=== PATIENT | female | born 1965 | race Caucasian/White ===

== ENCOUNTER → 2019-06-08 11:35 | Day surgery (SDC) | payer OTHER, SELFPAY ==
[2019-06-08 11:56] VITALS: BMI 41.1
[2019-06-08 12:02] VITALS: BP 140/95; PULSE 102; RESP 18; TEMP 37; O2SAT 96
--- NOTE | 2019-06-08 12:15 | ECG_ITS ---
Measurements Intervals [place] Rate: 102 P: VT: 0 QRS: 43 QRSD: 113 T: 17 QT: 365 QTc: 476 POSSIBLY ATRIAL FLUTTER WITH RVR LOW QRS VOLTAGE [QRS DEFLECTION < 0.5/1.0 mV IN LIMB/CHEST LEADS] ANTEROSEPTAL MYOCARDIAL INFARCTION [40+ ms Q WAVE IN V1-V4], PROBABLY RECENT ACUTE [place] WARNING: DATA QUALITY MAY AFFECT INTERPRETATION Compared to ECG 04/24/2018 10:02:58 Low QRS voltage now present Myocardial infarct finding now present Sinus rhythm no longer present Electronically Signed On 06-08-2019 17:48:29 CDT by Nan Coe M.D. [id number]
--- NOTE | 2019-06-08 12:26 | ANES.PREANE2 ---
Pre-Anesthetic Assessment Pre-Anesthetic Assessment: Height/Weight: Height 1.7 m Weight 119.295 kg Temp Pulse Resp BP Pulse Ox 98.6 F 102 H 18 140/95 96 06/08/19 12:02 06/08/19 12:02 06/08/19 12:02 06/08/19 12:02 06/08/19 12:02 Preop Diagnosis: cardioversion Proposed Procedure: Operation Date: 06/08/19 13:00 Proposed Procedures p Cardioversion(Not Applicable) - Theodora Valladares MD Familial anesthetic complications: none Was Beta Moi taken within 24 hours: N/A Social: Social History: Tobacco and No alcohol Packs per day: 1 Pack years: 20 Exam: Pre-Anes Outpt Exam: alert, oriented x 3, clear to auscultation bilaterally and regular rate & rhythm Airway: Submandibular: WNL Cervical ROM: WNL MP: 1 Dentition: False History/ROS: No significant history except as noted Pulmonary: Pulmonary: Asthma, Sleep apnea and SOB CV/HEM: CV/HEM: Arrythmia and HTN Comments: SVT : : None reported Hepatic: Hepatic: None reported GI: GI: GERD Metabolic: Metabolic: DM, Hyperlipidemia and Morbid obesity Musc/skel: Musc/skel: OA/DJD Neuropsych: Neuropsych: None reported Anesthetic Plan: ASA status: 3 Anesthesia: MAC Risk of > 500 ml blood loss (7ml/kg in children): No PFSH Anesthesia PFSH: Social History Smoking and tobacco status: current every day smoker Second hand smoke exposure: Yes Smoking risk assessment/counseling performed?: Yes Alcohol intake: never Desire information about alcohol rehabilitation?: No Counseling given: No Desire information about substance/drug rehabilitation?: No Counseling given: No Caregiver/support person: No Lives independently: Yes Current occupational status: employed History of recent travel: No Data Anesthesia Cardiac Studies: No Data to Display
[2019-06-08] MEDS: sodium chloride 0.9% 1,000 ML 100 ML IV (12:40)
--- NOTE | 2019-06-08 12:57 | PM.OP ---
Operative Report Date of procedure: June 08, 2019 Pre-op Diagnosis: cardioversion Post-op diagnosis: same Post-op Findings: Atrial flutter was converted to sinus rhythm Procedure Done: Electrical cardioversion Electrical cardioversion report Preprocedure diagnoses: Atrial fibrillation/hypertension. Brief history: This is a 54-year-old white female with a history of intermittent atrial flutter/fibrillation, presented with a persistent atrial fibrillation associated with chest pains, dizziness and presyncope. She was started on propafenone. Apparently she continued to be in atrial flutter/fibrillation. For this reason, an electrical cardioversion was recommended. Location of the procedure: CPRU Electrode application: Anteroposterior Electrical energy applied: 120 J of biphasic current Number of shocks: Single Final rhythm: Normal sinus rhythm with a rate of 74 bpm Final blood pressure: 128/72 Complications: None Recommendation(s): Continue the propafenone 300 mg p.o. every 8 hours Implants: None Specimens removed/disposition: None Surgeon: Theodora Valladares Anesthesia: MAC Estimated blood loss (mL): 0 Tourniquet time (min): 0 IV fluids (mL): 0 Condition: stable Disposition: observation
[2019-06-08 13:00] VITALS: BP 109/64; PULSE 76; RESP 18; TEMP 37; O2SAT 99
--- NOTE | 2019-06-08 13:00 | ANE.PACU2 ---
 Inpatient post-anesthesia follow up: Airway intact: Yes Vital signs: Temperature 98.6 F Pulse Rate 102 Respiratory Rate 18 Blood Pressure 140/95 Pulse Oximetry 96 Oxygen Delivery Me thod Oxygen Flow Rate Fraction of Inspir ed Oxygen Hydration adequate: Yes Nausea and vomiting: No Pain level: 1 Mental status: Baseline
[2019-06-08 13:15] VITALS: BP 110/77; PULSE 74; RESP 18; O2SAT 99
--- NOTE | 2019-06-08 13:20 | ECG_ITS ---
Measurements Intervals [place] Rate: 74 P: 35 IN: 224 QRS: 24 QRSD: 117 T: 48 QT: 407 QTc: 453 SINUS RHYTHM WITH FIRST DEGREE AV BLOCK LOW QRS VOLTAGE IN PRECORDIAL LEADS POSSIBLE ANTERIOR MYOCARDIAL INFARCTION, OF INDETERMINATE AGE ST ELEVATION, CONSIDER INFERIOR INJURY ACUTE [place] Compared to ECG 04/24/2018 10:02:58 First degree AV block now present Low QRS voltage now present Myocardial infarct finding now present ST (T wave) deviation now present Electronically Signed On 06-08-2019 17:46:59 CDT by Nan Coe M.D. [id number]
[2019-06-08 13:30] VITALS: BP 120/77; PULSE 76; RESP 18; O2SAT 99
--- NOTE | 2019-07-17 13:19 | W.PM.OPSUD ---
Surgery/Procedure H&P Update DATE OF PROCEDURE: 06/08/2019 DATE H&P PERFORMED: 05/25/19 H&P UPDATE INFORMATION: I have reviewed H&P completed within last 30 days, I have examined patient prior to procedure and No changes to prior documentation PREOP DIAGNOSIS: cardioversion PLANNED PROCEDURE: Operation Date: 06/08/19 13:00 Proposed Procedures p Cardioversion(Not Applicable) - Theodora Valladares MD PATIENT REASSESSED PRIOR TO SEDATION, WITH NO CHANGE NOTED: Yes PHYSICAL EXAM: oriented x 3, clear to auscultation bilaterally and regular rate & rhythm AIRWAY EVAL/ANESTHESIA PLAN: ASA II, Local Anesthesia, Risks, benefits & alternatives of sedation and/or procedure discussed and Patient agrees to continue as planned
== END | disposition home or self-care (01) ==
PROVIDERS: Family Provider Nurse Practitioner Family; PCP Nurse Practitioner; Visit Provider Internal Medicine Cardiovascular Disease
PROC: 5A2204Z Restoration of Cardiac Rhythm, Single (ICD-10-PCS; CPT 92960; principal; 2019-06-08 13:00)
DX: I48.91 Unspecified atrial fibrillation (principal); I10 Essential (primary) hypertension; J45.909 Unspecified asthma, uncomplicated; G47.30 Sleep apnea, unspecified; K21.9 Gastro-esophageal reflux disease without esophagitis; E11.9 Type 2 diabetes mellitus without complications; E78.5 Hyperlipidemia, unspecified; E66.01 Morbid (severe) obesity due to excess calories; Z68.41 Body mass index [BMI] 40.0-44.9, adult; M19.90 Unspecified osteoarthritis, unspecified site; F17.210 Nicotine dependence, cigarettes, uncomplicated
CPT/HCPCS: 92960; 12345; 93005; J2704; J7030

== ENCOUNTER → 2019-08-26 10:07 | Outpatient (BNVA) | payer OTHER, SELFPAY | PROVIDERS: Family Provider Nurse Practitioner Family; PCP Nurse Practitioner; Visit Provider Nurse Practitioner Family | DX: E78.5 Hyperlipidemia, unspecified (principal); E11.65 Type 2 diabetes mellitus with hyperglycemia; I10 Essential (primary) hypertension; J44.9 Chronic obstructive pulmonary disease, unspecified; I47.1 Supraventricular tachycardia; F17.200 Nicotine dependence, unspecified, uncomplicated | CPT/HCPCS: 80053; 80061; 83036; 84443; 85025 ==

== ENCOUNTER → 2019-09-10 15:13 | Outpatient (BNVA) | payer OTHER, SELFPAY | PROVIDERS: Family Provider Nurse Practitioner Family; PCP Nurse Practitioner; Visit Provider Nurse Practitioner | DX: M79.672 Pain in left foot (principal) | CPT/HCPCS: 73630 ==

== ENCOUNTER 2019-10-12 10:57 | Outpatient (CLI) | payer OTHER, SELFPAY ==
--- NOTE | 2019-10-12 13:15 | CT_ITS ---
WS: [id number] CT HEAD TECHNIQUE: Noncontrast CT of the head obtained from the skullbase to the vertex. CLINICAL INFORMATION: head injury, headache COMPARISON: None. DLP: 992.[address] scans at [facility] use at least one of these dose optimization techniques: automat ed exposure control; mA and/or kV adjustment per patient size (includes targeted exams where dose is matched to clinical indication); or iterative reconstruction. FINDINGS: No evidence of intracranial hemorrhage or mass effect. Ventricular system and basal cisterns are saez nt.No extra-axial fluid collections. No evidence of mass or mass effect. Normal jaime-white differenti ation. Paranasal sinuses and mastoid air cells are well aerated. . Soft tissue edema left parietal scalp. CT/CT head wo con* [id number] IMPRESSION: 1. No evidence of intracranial hemorrhage or mass effect. 2. No acute intracranial findings. 3. Soft tissue edema left parietal scalp. No visualized fractures.
== END 2019-10-12 10:58 | disposition home or self-care (01) ==
LOC: RADWPI 11:00
PROVIDERS: Family Provider Nurse Practitioner Family; PCP Nurse Practitioner; Visit Provider Nurse Practitioner Family
DX: S09.90XA Unspecified injury of head, initial encounter (principal); R51 Headache; R60.9 Edema, unspecified; X58.XXXA Exposure to other specified factors, initial encounter
CPT/HCPCS: 70450

== ENCOUNTER → 2019-10-19 14:02 | Outpatient (BNVA) | payer OTHER, SELFPAY | PROVIDERS: Family Provider Nurse Practitioner Family; PCP Nurse Practitioner; Visit Provider Nurse Practitioner Family | DX: M54.2 Cervicalgia (principal); M25.522 Pain in left elbow; S59.902A Unspecified injury of left elbow, initial encounter; X58.XXXA Exposure to other specified factors, initial encounter | CPT/HCPCS: 72040; 73080 ==

== ENCOUNTER → 2019-10-28 09:14 | Outpatient (BNVA) | payer OTHER, SELFPAY | PROVIDERS: Family Provider Nurse Practitioner Family; PCP Nurse Practitioner; Visit Provider Nurse Practitioner Family | DX: F07.81 Postconcussional syndrome (principal); M25.522 Pain in left elbow; S59.902A Unspecified injury of left elbow, initial encounter | CPT/HCPCS: 73080 ==

== ENCOUNTER 2019-11-23 10:08 | Observation (INO) | payer OTHER, SELFPAY ==
[2019-11-23] VITALS (13 sets, daily range): BP systolic 103–162; BP diastolic 62–92; PULSE 60–91; RESP 14–20; TEMP 36.1–36.8; O2SAT 93–98; BMI 41.1
--- NOTE | 2019-11-23 10:36 | ECG_ITS ---
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 Measurements Intervals [place] Rate: 69 P: 0 NM: 157 QRS: 30 QRSD: 115 T: 49 QT: 418 QTc: 448 Interpretive Statements SINUS RHYTHM LOW QRS VOLTAGE IN EXTREMITY LEADS [QRS DEFLECTION < 0.5 mV IN LIMB LEADS] MODERATE INTRAVENTRICULAR CONDUCTION DELAY [105+ ms QRS DURATION, 80+ ms Q/S IN V1/V2, NO Q AND 60+ ms R IN I/aVL/V5/V6] Compared to ECG 06/08/2019 12:59:31 Intraventricular conduction delay now present First degree AV block no longer present Myocardial infarct finding no longer present ST (T wave) deviation no longer present Electronically Signed On 11-23-2019 20:47:38 CDT by Nan Coe M.D. [id number] f
--- NOTE | 2019-11-23 10:36 | XRR_ITS ---
PROCEDURE INFORMATION: Exam: XR Chest, 1 View Exam date and time: 11/23/2019 10:47 AM Age: 54 years old Clinical indication: Chest pain; Type not specified TECHNIQUE: Imaging protocol: XR of the chest Views: 1 view. COMPARISON: CR Chest 1 [place] [id number] 10/11/2016 10:11 AM FINDINGS: Lungs: Interstitial prominence and chronic granulomatous disease. Pleural space: No pleural effusion. Heart/Mediastinum: Cardiac silhouette upper limits of normal in size. Bones/joints: Unremarkable. XR/XR chest 1V portable [id number] IMPRESSION: Interstitial prominence and chronic granulomatous disease.
--- NOTE | 2019-11-23 10:45 | W.ED.CHESTPA ---
HPI - Chest Pain General: Chief Complaint: Chest Pain Stated Complaint: chest pain Time Seen by Provider: 11/23/19 10:17 History of Present Illness: HPI narrative: 54-year-old female presents emergency room with complaint of chest pain. Chest pain initially began this morning around 730 while she was getting ready for work. It persisted she went to a local clinic they evaluated her there and called EMS to bring her in. She was given 2 sublingual nitro at the clinic as well as aspirin and then given 2 more sublingual nitro by EMS and then finally an inch of Nitropaste. At the end of all of the nitro treatments she did report relief of her chest pain. A year ago patient had an episode of A. fib with RVR and was cardioverted after which she had a stress test which was reported to her as normal no further intervention was done. She does have significant risk factors including being in 2 pack-a-day smoker for greater than 20 years and being diabetic. (Reviewing old records find that the sestamibi stress test was done in October 31, 2016 was read as normal) MD complaint: chest heaviness Pertinent past history: other (Diabetes mellitus heavy smoking A. fib) Onset (ago): hour(s) Timing of current episode: constant Prior episodes: No Onset: during exertion (Mild exertion) Pain location: substernal and left chest Pain radiation: none Severity: severe Quality: tightness and heaviness Relieving factors: nitroglycerin Exacerbating factors: exertion Associated symptoms: Deny abdominal pain, diaphoresis, dyspnea, fever(s), leg edema, nausea, palpitations, sense of impending doom, syncope or vomiting Treatment prior to arrival: aspirin and nitroglycerin Review of Systems Const: Denies: fever(s) or diaphoresis ENMT: Denies: throat pain, ear or mastoid pain, nasal discharge or nasal congestion Card: Denies: palpitations or syncope Resp: Denies: dyspnea GI: Denies: abdominal pain, nausea or vomiting : Denies: flank pain, difficulty voiding, dysuria, urinary frequency or urinary urgency Skin/Breast: Denies: rash or pruritus [facility] ED PFSH: Medical History Asthma Atrial fibrillation Benign hypertension Controlled type 2 diabetes mellitus with hyperglycemia, without long-term current use of insulin COPD (chronic obstructive pulmonary disease) COPD exacerbation Current smoker Dyslipidemia GERD (gastroesophageal reflux disease) High risk medication use SVT (supraventricular tachycardia) Surgical History History of appendectomy History of hysterectomy History of mastectomy Family History Father CAD (coronary artery disease) CHF (congestive heart failure) Hyperlipidemia Hypertension Lung disease Stroke Other Diabetes Denies family history of Clotting disorder Dementia Psychiatric illness Chronic kidney disease (CKD) Suicide Anesthesia complication Bleeding disorder Family history of premature coronary artery disease Cancer Social History Smoking and tobacco status: current every day smoker cigarettes Packs smoked per day: 2 Second hand smoke exposure: Yes Smoking risk assessment/counseling performed?: Yes Alcohol intake: never Desire information about alcohol rehabilitation?: No Counseling given: No Desire information about substance/drug rehabilitation?: No Counseling given: No Caregiver/support person: No Lives independently: Yes Current occupational status: employed History of recent travel: No Physical Exam Const: COMMON NORMALS: average body habitus, patient oriented x3 and alert GENERAL APPEARANCE: cooperative, comfortable, well kempt and well developed NUTRITIONAL APPEARANCE: obese ORIENTATION/CONSCIOUSNESS: Yes awake, Yes oriented to person and Yes oriented to place HENMT: COMMON NORMALS: normocephalic, atraumatic and EAC's normal HEAD & SCALP: normocephalic and atraumatic EXTERNAL AUDITORY CANAL: EAC's normal Eye: COMMON NORMALS: Equal, round and reactive pupils present, EOMs intact bilaterally, conjunctivae normal and no scleral icterus CONJUNCTIVA: Yes conjunctivae normal PUPIL: Yes Equal, round and reactive pupils present Neck/C-Spine: COMMON NORMALS: full ROM, no lymphadenopathy, supple, no meningeal signs and Thyroid normal THYROID: Thyroid normal and asymmetrical Lymph: LYMPHATIC: no lymphadenopathy noted Resp: COMMON NORMALS: normal respiratory effort, No retractions, No use of accessory muscles and clear to auscultation bilaterally AUSCULTATION: clear to auscultation bilaterally Cardio: COMMON NORMALS: regular rate and regular rhythm RATE: regular rate RHYTHM: regular rhythm HEART SOUNDS: no murmurs GI: COMMON NORMALS: Normal to inspection, nondistended, normoactive bowel sounds present, Soft to palpation and No hepatosplenomegaly present PALPATION: Yes Soft to palpation and Yes No hepatosplenomegaly present : COMMON NORMALS: Yes no CVA tenderness BLADDER/KIDNEY EXAM: Yes no CVA tenderness Back/Pelvis: COMMON NORMALS: no CVA tenderness LUMBAR SPINE/LOWER BACK: Yes normal to inspection Extremity: COMMON NORMALS: no clubbing, cyanosis or edema, no calf tenderness and no pedal edema Neuro: COMMON NORMALS: patient oriented x3 SENSORIUM/ORIENTATION: Yes alert, Yes oriented to person and Yes oriented to place MENINGEAL SIGNS: Yes no meningeal signs Psych: APPEARANCE: Yes well kempt Skin: COMMON NORMALS: no rashes or lesions noted and turgor normal GENERAL SKIN EXAM: no rashes or lesions noted and turgor normal Course Vital Signs: Vital signs: Vital Signs Temperature 98.6 F 11/24/19 16:01 Pulse Rate 65 11/24/19 16:01 Respiratory Rate 15 11/24/19 16:01 Blood Pressure 132/67 11/24/19 16:01 Pulse Oximetry 95 11/24/19 16:01 MDM - Chest Pain MDM Narrative: Medical decision making narrative: Patient placed in observation with topical nitro and Lovenox to further evaluate for heart disease discussed Dr. Taylor. Lab Data: Labs: Lab Results 11/23/19 11/23/19 11/23/19 Range/Units 10:54 10:54 10:54 WBC 9.2 (4.0-10.0) 10^3/ uL RBC 5.08 (4.1-5.3) 10^6/u L Hgb 15.3 (11.5-15.3) g/dL Hct 46.8 (37.0-47.0) % MCV 92.1 (81-99) fL MCH 30.1 (28.0-34.0) pg MCHC 32.7 (30.0-36.0) g/dL RDW 12.2 (12.1-15.1) % Plt Count 257 (130-400) 10^3/c mm MPV 11.1 H (7.4-10.4) fL Neut % (Auto) 60.2 % Lymph % (Auto) 30.1 % [place] % (Auto) 6.0 % Eos % (Auto) 2.6 % Baso % (Auto) 0.7 % Neut # (Auto) 5.53 (1.8-7.7) 10^3/u L Lymph # (Auto) 2.8 (0.8-4.8) 10^3/u L [place] # (Auto) 0.6 (0.2-0.9) 10^3/u L Eos # (Auto) 0.2 (0.0-0.8) 10^3/u L Baso # (Auto) 0.1 (0.0-0.1) 10^3/u L Nucleated RBC % (a uto) 0 % Nucleated RBCs # 0.0 /100WBC PT (12.1-14.9) SECO NDS INR (0.8-1.2) D-Dimer (0-0.59) ug/mIFE U Sodium 137 (136-145) mmol/L Potassium 4.6 (3.5-5.1) mmol/L Chloride 101 (98-107) mmol/L Carbon Dioxide 28 (22-29) mmol/L Anion Gap 12.6 (5-19) BUN 9 (6-20) mg/dL Creatinine 0.6 (0.5-0.9) mg/dL GFR Calculation 103.8 (90-130) mL/min Glucose 288 H (65-115) mg/dL Calculated Osmolal ity 291 (285-295) mOsm/k g Calcium 9.0 (8.5-10.5) mg/dL Total Bilirubin 0.4 (0.15-1.2) mg/dL AST 15 (0-32) U/L ALT 19 (0-33) U/L Alkaline Phosphata se 92 (35-105) IU/L Troponin T Baselin e 6 (0-10) ng/L Troponin T 120 Min [place] (0-10) ng/L Delta Troponin T (0-10) ABS# Total Protein 6.7 (6.6-8.7) g/dL Albumin 3.8 (3.5-5.2) g/dL Globulin 2.9 (1.3-4.6) g/dL TSH (0.27-4.20) uIU/ mL 11/23/19 11/23/19 11/23/19 Range/Units 10:54 10:54 13:00 WBC (4.0-10.0) 10^3/ uL RBC (4.1-5.3) 10^6/u L Hgb (11.5-15.3) g/dL Hct (37.0-47.0) % MCV (81-99) fL MCH (28.0-34.0) pg MCHC (30.0-36.0) g/dL RDW (12.1-15.1) % Plt Count (130-400) 10^3/c mm MPV (7.4-10.4) fL Neut % (Auto) % Lymph % (Auto) % [place] % (Auto) % Eos % (Auto) % Baso % (Auto) % Neut # (Auto) (1.8-7.7) 10^3/u L Lymph # (Auto) (0.8-4.8) 10^3/u L [place] # (Auto) (0.2-0.9) 10^3/u L Eos # (Auto) (0.0-0.8) 10^3/u L Baso # (Auto) (0.0-0.1) 10^3/u L Nucleated RBC % (a uto) % Nucleated RBCs # /100WBC PT 15.10 H (12.1-14.9) SECO NDS INR 1.15 (0.8-1.2) D-Dimer 0.46 (0-0.59) ug/mIFE U Sodium (136-145) mmol/L Potassium (3.5-5.1) mmol/L Chloride (98-107) mmol/L Carbon Dioxide (22-29) mmol/L Anion Gap (5-19) BUN (6-20) mg/dL Creatinine (0.5-0.9) mg/dL GFR Calculation (90-130) mL/min Glucose (65-115) mg/dL Calculated Osmolal ity (285-295) mOsm/k g Calcium (8.5-10.5) mg/dL Total Bilirubin (0.15-1.2) mg/dL AST (0-32) U/L ALT (0-33) U/L Alkaline Phosphata se (35-105) IU/L Troponin T Baselin e (0-10) ng/L Troponin T 120 Min [place] 6.00 (0-10) ng/L Delta Troponin T 0 (0-10) ABS# Total Protein (6.6-8.7) g/dL Albumin (3.5-5.2) g/dL Globulin (1.3-4.6) g/dL TSH (0.27-4.20) uIU/ mL 11/23/19 Range/Units 13:00 WBC (4.0-10.0) 10^3/ uL RBC (4.1-5.3) 10^6/u L Hgb (11.5-15.3) g/dL Hct (37.0-47.0) % MCV (81-99) fL MCH (28.0-34.0) pg MCHC (30.0-36.0) g/dL RDW (12.1-15.1) % Plt Count (130-400) 10^3/c mm MPV (7.4-10.4) fL Neut % (Auto) % Lymph % (Auto) % [place] % (Auto) % Eos % (Auto) % Baso % (Auto) % Neut # (Auto) (1.8-7.7) 10^3/u L Lymph # (Auto) (0.8-4.8) 10^3/u L [place] # (Auto) (0.2-0.9) 10^3/u L Eos # (Auto) (0.0-0.8) 10^3/u L Baso # (Auto) (0.0-0.1) 10^3/u L Nucleated RBC % (a uto) % Nucleated RBCs # /100WBC PT (12.1-14.9) SECO NDS INR (0.8-1.2) D-Dimer (0-0.59) ug/mIFE U Sodium (136-145) mmol/L Potassium (3.5-5.1) mmol/L Chloride (98-107) mmol/L Carbon Dioxide (22-29) mmol/L Anion Gap (5-19) BUN (6-20) mg/dL Creatinine (0.5-0.9) mg/dL GFR Calculation (90-130) mL/min Glucose (65-115) mg/dL Calculated Osmolal ity (285-295) mOsm/k g Calcium (8.5-10.5) mg/dL Total Bilirubin (0.15-1.2) mg/dL AST (0-32) U/L ALT (0-33) U/L Alkaline Phosphata se (35-105) IU/L Troponin T Baselin e (0-10) ng/L Troponin T 120 Min [place] (0-10) ng/L Delta Troponin T (0-10) ABS# Total Protein (6.6-8.7) g/dL Albumin (3.5-5.2) g/dL Globulin (1.3-4.6) g/dL TSH 1.33 (0.27-4.20) uIU/ mL Discharge Plan Discharge Patient Disposition: Placed in Observation Admit Provider: Flavia Taylor Clinical Impression: Unstable angina pectoris, Controlled type 2 diabetes mellitus with hyperglycemia, without long-term current use of insulin, Benign hypertension, COPD (chronic obstructive pulmonary disease), Chest pain, Tobacco abuse, Atrial fibrillation Condition: Stable Referrals: Theodora Valladares MD [Physician] - 1 month (You have an follow-up appointment with Dr. Valladares on , with check-in at 3:30p.m. If you have any questions or need to reschedule. Please call ) Ángel Vance FNP-C [Primary Care Provider] - 4-7 days (You have an follow-up appointment with Ángel RAMOS on Nov.29 at 9:20a.m. If you have any questions or need to reschedule. Please call Recommend outpatient Pulmonary Function testing be set up by PCP) Discharge Diet: Diabetic Discharge Activity: Increase activity as tolerated Patient Instructions: Nitroglycerin, Rapid Release (By mouth), Pantoprazole (By mouth), Atrial Fibrillation (DC), Supraventricular Tachycardia (DC), Chest Pain Stoplight Additional Instructions: Follow-up with your primary care provider in 4 to 7 days Follow-up with Dr. Valladares in 4 to 6 weeks Start on PPI, Protonix 40 mg once daily Call your physician or present to the ED for any acute illness or concern Continue to monitor your blood sugar daily and present a blood glucose log to your primary care provider for further titration of insulin as indicated Strongly encouraged tobacco cessation, when you are ready to discuss stopping smoking please call your primary care provider Recommend outpatient pulmonary function testing to be set up by primary care provider Interventions: ED Discharge Assessment Last Done: 11/23/19 15:52 ED Charges Last Done: 11/23/19 15:52 Forms: Work/School Release Discharge Date/Time: 11/23/19 16:08 Coding Level of Care Code ED Coating Mixer for Chg Fwd Exam Comprehensive
--- NOTE | 2019-11-23 10:59 | ECG_ITS ---
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 Measurements Intervals [place] Rate: 66 P: 64 IA: 183 QRS: 10 QRSD: 125 T: 38 QT: 400 QTc: 422 Interpretive Statements SINUS RHYTHM WITH SINUS ARRHYTHMIA POSSIBLE ANTERIOR MYOCARDIAL INFARCTION , OF INDETERMINATE AGE Compared to ECG 06/08/2019 12:59:31 First degree AV block no longer present ST (T wave) deviation no longer present Myocardial infarct finding still present Electronically Signed On 11-23-2019 20:44:45 CDT by Nan Coe M.D. [id number] f
[2019-11-23 11:00] LABS: Basophils # 0.1 10^3/uL (0.0-0.1); Basophils % 0.7 %; Eosinophils # 0.2 10^3/uL (0.0-0.8); Eosinophils % 2.6 %; Hematocrit 46.8 % (37.0-47.0); Hemoglobin 15.3 g/dL (11.5-15.3); Lymphocytes # 2.8 10^3/uL (0.8-4.8); Lymphocytes % 30.1 %; Mean Corpuscular HGB Conc 32.7 g/dL (30.0-36.0); Mean Corpuscular Hemoglobin 30.1 pg (28.0-34.0); Mean Corpuscular Volume 92.1 fL (81-99); Mean Platelet Volume 11.1 fL (7.4-10.4); Monocytes # 0.6 10^3/uL (0.2-0.9); Neutrophils # 5.53 10^3/uL (1.8-7.7); Neutrophils % 60.2 %; Nucleated Red Blood Cells % 0 %; Platelet Count 257 10^3/cmm (130-400); Red Blood Count 5.08 10^6/uL (4.1-5.3); Red Cell Distribution Width 12.2 % (12.1-15.1); White Blood Count 9.2 10^3/uL (4.0-10.0)
[2019-11-23] MEDS: morphine 4 mg/mL SDV 1 mL IVP (11:04)
--- NOTE | 2019-11-23 11:12 | PC.NURSE ---
Morphine given per written order for current left sided chest pain. Rates pain 4/10.
[2019-11-23 11:17] LABS: Alanine Aminotransferase 19 U/L (0-33); Albumin Level 3.8 g/dL (3.5-5.2); Alkaline Phosphatase 92 IU/L (35-105); Anion Gap 12.6 (5-19); Aspartate Amino Transferase 15 U/L (0-32); Blood Urea Nitrogen 9 mg/dL (6-20); Carbon Dioxide 28 mmol/L (22-29); Chloride 101 mmol/L (98-107); Globulin 2.9 g/dL (1.3-4.6); Glomerular Filtration Rate 103.8 mL/min (90-130); Glucose 288 mg/dL (65-115); Osmolality Calculated 291 mOsm/kg (285-295); Potassium 4.6 mmol/L (3.5-5.1); Sodium 137 mmol/L (136-145); Total Bilirubin 0.4 mg/dL (0.15-1.2); Total Protein 6.7 g/dL (6.6-8.7)
[2019-11-23 11:18] LABS: Troponin(5th) Baseline 6 ng/L (0-10)
[2019-11-23 12:11] LABS: D Dimer 0.46 ug/mIFEU (0-0.59)
--- NOTE | 2019-11-23 12:36 | ECG_ITS ---
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 Measurements Intervals [place] Rate: 55 P: 60 ME: 184 QRS: 35 QRSD: 112 T: 66 QT: 439 QTc: 421 Interpretive Statements SINUS BRADYCARDIA MODERATE INTRAVENTRICULAR CONDUCTION DELAY [110+ ms QRS DURATION] Compared to ECG 11/23/2019 11:09:49 Intraventricular conduction delay now present Sinus rhythm no longer present Sinus arrhythmia no longer present Myocardial infarct finding no longer present Electronically Signed On 11-23-2019 21:07:31 CDT by Nan Coe M.D. [id number]
[2019-11-23 14:31] LABS: Troponin 5 2HR Delta 0 ABS# (0-10)
--- NOTE | 2019-11-23 14:53 | PC.NURSE ---
Offered food and drink to pt and family member
--- NOTE | 2019-11-23 15:48 | PM.HP ---
Providers/Chief Complaint Admitting Physician: Flavia Taylor DO Primary Care Provider: RICHARD Flores Chief Complaint: chest pain History of Present Illness Soni Head is a 54 year old female with a past medical history of hypertension, tobacco abuse, diabetes and hyperlipidemia that presented to the emergency department today for chest pain. Patient stated that she began having chest pain located in the center of her chest this morning when she was getting ready for work. She stated that she came into work but continued to have chest pain in the center of her chest that began to get worse therefore came in to the ER for further evaluation and treatment. She reports that she was given 2 nitroglycerin with some improvement in pain then given an additional 2 nitroglycerin and ultimately placed on Nitropaste. Nitroglycerin and morphine have helped with her chest pain. She denies any radiation to the pain, no inspiratory symptoms, no respiratory symptoms including cough or shortness of breath. She reports chronic smoker's cough but denies any acute changes, no hemoptysis. Patient denies any recent medication changes. She reports that she is followed by cardiology due to history of atrial fibrillation and SVT. Patient denies any recent fevers or chills, no recent antibiotics. She denies any exposure to any one under investigation are positive for COVID-19. She reports no nausea, no diaphoretic symptoms, no lightheadedness or dizziness. Patient has not had any exertional symptoms other than what started today. She reports that her last cardiac stress test was in 2017. Followed by Dr. Valladares regularly. Has never had a cardiac catheterization. Review of Systems Const: Denies: fever(s) or chills Eyes: Denies: change in vision ENMT: Denies: nasal congestion Card: Reports: chest pain; Denies: palpitations or edema Resp: Denies: dyspnea, productive cough or hemoptysis GI: Denies: abdominal pain, nausea, vomiting, diarrhea, constipation, hematochezia or melena : Denies: dysuria or hematuria Musc: Denies: extremity pain or muscle cramps Skin/Breast: Denies: rash or new lesions Neuro: Denies: headache(s) or dizziness Psych: Denies: anxiety or depression Endo: Denies: polyuria or hot flashes Tio/Lymph: Denies: easy bruising or easy bleeding Medications/Allergies Home Medications Medication Instructions Recorded Confirmed Last Taken Type chlorpheniramine maleate 4 mg 8 mg PO Q8H tab 05/21/19 11/23/19 11/23/19 History tablet ascorbate calcium-bioflavonoid 1,000 tab PO DAILY 06/14/19 11/23/19 11/22/19 History 1,000 mg-200 mg tablet valerian root 445 mg capsule 1,335 mg PO DAILY cap 06/14/19 11/23/19 11/22/19 History propafenone 300 mg tablet 300 mg PO TID #270 tab 07/15/19 11/23/19 11/23/19 Rx albuterol sulfate 90 mcg/actuation 2 puff INHALATION Q4H PRN 30 Days 08/26/19 11/23/19 Unknown Rx aerosol inhaler #6.7 gm atorvastatin 20 mg tablet 20 mg PO DAILY #30 tab 08/26/19 11/23/19 11/22/19 Rx diltiazem HCl 90 mg tablet 90 mg PO Q8H 30 Days #90 tab 08/26/19 11/23/19 11/23/19 Rx glipizide 10 mg tablet 10 mg PO BID 30 Days #60 tab 08/26/19 11/23/19 11/22/19 Rx lisinopril 20 mg tablet 20 mg PO DAILY 30 Days #30 tab 08/26/19 11/23/19 11/22/19 Rx pen needle, diabetic 33 gauge x #100 each 09/10/19 11/23/19 Unknown Rx 5/32 acetaminophen [Tylenol Arthritis 1,300 mg PO Q8H PRN 11/23/19 11/23/19 11/23/19 History Pain] dulaglutide [Trulicity] 1.5 mg SUBCUT Q7D 11/23/19 11/23/19 Unknown History insulin degludec [Tresiba 10 unit SUBCUT BEDTIME 11/23/19 11/23/19 11/22/19 History FlexTouch U-100] rivaroxaban [Xarelto] 20 mg PO BEDTIME 11/23/19 11/23/19 11/22/19 History Allergies Allergy/AdvReac Type Severity Reaction Status Date / Time azithromycin [From Zithromax] Allergy Unknown Unknown Verified 11/23/19 11:24 sulfamethoxazole Allergy Unknown Unknown Verified 11/23/19 11:24 [From Bactrim] trimethoprim [From Bactrim] Allergy Unknown Unknown Verified 11/23/19 11:24 PFSH Acute PFSH: Medical History Asthma Atrial fibrillation Benign hypertension Controlled type 2 diabetes mellitus with hyperglycemia, without long-term current use of insulin COPD (chronic obstructive pulmonary disease) COPD exacerbation Current smoker Dyslipidemia GERD (gastroesophageal reflux disease) High risk medication use SVT (supraventricular tachycardia) Surgical History History of appendectomy History of hysterectomy History of mastectomy Family History Father CAD (coronary artery disease) CHF (congestive heart failure) Hyperlipidemia Hypertension Lung disease Stroke Other Diabetes Denies family history of Clotting disorder Dementia Psychiatric illness Chronic kidney disease (CKD) Suicide Anesthesia complication Bleeding disorder Family history of premature coronary artery disease Cancer Social History (Updated 11/23/19 @ 15:52 by Flavia Taylor DO) Smoking and tobacco status: current every day smoker cigarettes Packs smoked per day: 2 Second hand smoke exposure: Yes Smoking risk assessment/counseling performed?: Yes Alcohol intake: never Desire information about alcohol rehabilitation?: No Counseling given: No Desire information about substance/drug rehabilitation?: No Counseling given: No Caregiver/support person: No Lives independently: Yes Current occupational status: employed History of recent travel: No Vitals/I&O/Wt Last Vital Signs Temp 97.0 F L 11/23/19 10:24 Pulse 75 11/23/19 15:00 Resp 18 11/23/19 15:00 BP 144/70 11/23/19 15:00 Pulse Ox 95 11/23/19 15:00 Weight last 48 hrs Weight 119.295 kg Physical Exam Const: COMMON NORMALS: patient oriented x3 and alert GENERAL APPEARANCE: cooperative ORIENTATION/CONSCIOUSNESS: Yes awake, Yes oriented to person, Yes oriented to place and Yes oriented to time HENMT: COMMON NORMALS: normocephalic and atraumatic HEAD & SCALP: normocephalic and atraumatic Eye: COMMON NORMALS: Equal, round and reactive pupils present PUPIL: Yes Equal, round and reactive pupils present Neck/C-Spine: COMMON NORMALS: supple GENERAL: Yes normal visual inspection Resp: COMMON NORMALS: normal respiratory effort and clear to auscultation bilaterally EFFORT & INSPECTION: Yes able to speak in complete sentences AUSCULTATION: clear to auscultation bilaterally, no rhonchi and no wheezes OTHER: Prolonged expiratory phase, no appreciable wheezing or rhonchi Cardio: COMMON NORMALS: regular rate, regular rhythm and No murmurs present (Cardio) RATE: regular rate RHYTHM: regular rhythm GI: COMMON NORMALS: Soft to palpation and non-tender INSPECTION: No abdominal distension AUSCULTATION: Yes normoactive bowel sounds PALPATION: Yes Soft to palpation : BLADDER/KIDNEY EXAM: Yes no CVA tenderness Back/Pelvis: COMMON NORMALS: no CVA tenderness Extremity: COMMON NORMALS: no clubbing, cyanosis or edema and no calf tenderness Neuro: COMMON NORMALS: patient oriented x3, CN's II-XII intact bilaterally, moves all extremities and no focal motor deficits SENSORIUM/ORIENTATION: Yes alert, Yes oriented to person, Yes oriented to place and Yes oriented to time SPEECH: speech normal Psych: COMMON NORMALS: mental status grossly normal and cooperative Skin: COMMON NORMALS: no rashes or lesions noted GENERAL SKIN EXAM: no rashes or lesions noted Data : 11/23/19 10:54 11/23/19 10:54 CXR: I personally reviewed and interpreted this imaging study as follows: Radiologist's impression: IMPRESSION: Interstitial prominence and chronic granulomatous disease. A&P Assessment and plan (1) Chest pain: Place in observation with telemetry Serial EKG and troponin No significant delta troponin at this time however patient has had an inconclusive stress test back in 2017 therefore discussed with cardiology for consultation. Dr. Tan consulted, appreciate recommendations and assistance in patient's care. Patient did have chest pain with activity that was improved with nitroglycerin has risk factors including tobacco abuse, family history of heart disease, hypertension, hyperlipidemia and diabetes. Plan for potential cardiac cath tomorrow Discussed with cardiology and will give loading dose of Plavix and Lovenox at this time Continue on aspirin and statin Status: Acute (2) COPD (chronic obstructive pulmonary disease): Without acute exacerbation Oxygen per protocol, currently on room air Status: Chronic Qualifiers: COPD type: chronic bronchitis Chronic bronchitis type: unspecified Qualified Code(s): J42 - Unspecified chronic bronchitis (3) Dyslipidemia: Continue atorvastatin Status: Chronic (4) SVT (supraventricular tachycardia): History of SVT, followed closely by Dr. Valladares. Continue on propafenone 300 mg 3 times a day Status: Acute (5) Benign hypertension: Blood pressure controlled at this time, continue on home regimen including lisinopril, Cardizem Status: Acute (6) Current smoker: Currently smoking 2 packs/day, strongly encourage cessation, nicotine patch ordered as needed Status: Chronic (7) Controlled type 2 diabetes mellitus with hyperglycemia, without long-term current use of insulin: Diabetes mellitus type 2, insulin-dependent Patient is on glipizide which is currently on hold in the inpatient setting as do not wish for her to have any hypoglycemic event. On Tresiba 10 units daily Last dose of Trulicity on Friday Placed on sliding scale insulin as needed Status: Chronic (8) Atrial fibrillation: Currently in sinus rhythm Patient is on Cardizem 90 mg every 8 hours Xarelto 20 mg at home Status: Acute Qualifiers: Atrial fibrillation type: paroxysmal Qualified Code(s): I48.0 - Paroxysmal atrial fibrillation Additional A&P Information DVT prophylaxis: On Lovenox as above Diet: Cardiac, carbohydrate consistent CODE STATUS: Full code Attestations Medical Necessity Statement*: Observation due to chest pain with hypertension, diabetes, family history of heart disease, tobacco use. Expected stay less than 2 midnights Coding Level of Care Code Acute Procedure Tech for [facility] Fwd Diagnoses Chest pain R07.9 COPD (chronic obstructive pulmonary disease) J42 COPD type: chronic bronchitis Chronic bronchitis type: unspecified Dyslipidemia E78.5 SVT (supraventricular tachycardia) I47.1 Benign hypertension I10 Current smoker F17.200 Controlled type 2 diabetes mellitus with hyperglycemia, without long-term current use of insulin E11.65 Atrial fibrillation I48.0 Atrial fibrillation type: paroxysmal
[2019-11-23 16:30] LABS: INR 1.15 (0.8-1.2)
[2019-11-23 16:32] LABS: Thyroid Stimulating Hormone 1.33 uIU/mL (0.27-4.20)
--- NOTE | 2019-11-23 16:36 | ECG_ITS ---
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 Measurements Intervals [place] Rate: 57 P: 80 SD: 181 QRS: 88 QRSD: 111 T: 85 QT: 432 QTc: 421 Interpretive Statements SINUS BRADYCARDIA LOW QRS VOLTAGE IN EXTREMITY LEADS [QRS DEFLECTION < 0.5 mV IN LIMB LEADS] MODERATE INTRAVENTRICULAR CONDUCTION DELAY [110+ ms QRS DURATION] Compared to ECG 11/23/2019 13:32:37 Low QRS voltage now present Electronically Signed On 11-23-2019 21:06:43 CDT by Nan Coe M.D. [id number]
[2019-11-23 17:11] LABS: Troponin 5 6HR Delta 0 ng/L (0-12)
[2019-11-23 17:24] LABS: Glucose Point of Care 251 mg/dL (70-110)
[2019-11-23] MEDS: propafenone 150 mg Tablet 300 MG PO ×2 (17:43→20:53)
[2019-11-23] MEDS: dilTIAZem 60 mg Tablet PO (17:44)
[2019-11-23] MEDS: dilTIAZem 30 mg Tablet PO (17:44)
[2019-11-23] MEDS: clopidogrel 300 mg Tablet PO (17:45)
[2019-11-23] MEDS: enoxaparin 120 mg/0.8 mL Syringe SUBCUT (17:49)
--- NOTE | 2019-11-23 18:40 | PM.CONSULT ---
Providers/Reason For Consult Consulting Physican/Specialty*: Cardiology Reason for Consult*: Chest pain Attending Physician: Flavia Taylor DO Primary Care Provider: RICHARD Flores History of Present Illness History of Present Illness Soni Head is a 54 year old female past medical history significant for hypertension obesity continuous tobacco abuse atrial fibrillation supraventricular tachycardia on anticoagulation presented with chest pain going on since this morning off and on basis. According to the patient as she was leaving for work she had sharp retrosternal pain which was mild to moderate she did not pay much attention towards a midday it became more constant and higher in intensity therefore decided to call EMS. Enroute she was giving 2 nitroglycerin which relieved her chest pain in the ER was placed which took the total edge of the pain off. Currently she is chest pain-free twelve-lead EKG not suggestive of acute ischemia at the same time cardiac markers both delta and baseline troponin are within normal limits. Patient has been admitted to rule out for ACS Review of Systems Const: Denies: fever(s), chills or diaphoresis Eyes: Denies: change in vision or photophobia ENMT: Denies: throat pain, ear or mastoid pain, nasal discharge or nasal congestion Card: Reports: chest pain; Denies: palpitations, edema or syncope Resp: Denies: dyspnea, productive cough or hemoptysis GI: Denies: abdominal pain, nausea, vomiting, diarrhea, constipation, hematochezia or melena : Denies: flank pain, difficulty voiding, dysuria, urinary frequency, urinary urgency or hematuria Musc: Denies: extremity pain, joint warmth or muscle cramps Skin/Breast: Denies: rash, pruritus or new lesions Neuro: Denies: headache(s) or dizziness Psych: Denies: anxiety or depression Endo: Denies: polyuria or hot flashes Tio/Lymph: Denies: easy bruising or easy bleeding All/Imm: Denies: acute wheezing Meds/Allergies Home Medications and Allergies Home Medications Medication Instructions Recorded Confirmed Last Taken Type chlorpheniramine maleate 4 mg 8 mg PO Q8H tab 05/21/19 11/23/19 11/23/19 History tablet ascorbate calcium-bioflavonoid 1,000 tab PO DAILY 06/14/19 11/23/19 11/22/19 History 1,000 mg-200 mg tablet valerian root 445 mg capsule 1,335 mg PO DAILY cap 06/14/19 11/23/19 11/22/19 History propafenone 300 mg tablet 300 mg PO TID #270 tab 07/15/19 11/23/19 11/23/19 Rx albuterol sulfate 90 mcg/actuation 2 puff INHALATION Q4H PRN 30 Days 08/26/19 11/23/19 Unknown Rx aerosol inhaler #6.7 gm atorvastatin 20 mg tablet 20 mg PO DAILY #30 tab 08/26/19 11/23/19 11/22/19 Rx diltiazem HCl 90 mg tablet 90 mg PO Q8H 30 Days #90 tab 08/26/19 11/23/19 11/23/19 Rx glipizide 10 mg tablet 10 mg PO BID 30 Days #60 tab 08/26/19 11/23/19 11/22/19 Rx lisinopril 20 mg tablet 20 mg PO DAILY 30 Days #30 tab 08/26/19 11/23/19 11/22/19 Rx pen needle, diabetic 33 gauge x #100 each 09/10/19 11/23/19 Unknown Rx 5/32 acetaminophen [Tylenol Arthritis 1,300 mg PO Q8H PRN 11/23/19 11/23/19 11/23/19 History Pain] dulaglutide [Trulicity] 1.5 mg SUBCUT Q7D 11/23/19 11/23/19 Unknown History insulin degludec [Tresiba 10 unit SUBCUT BEDTIME 11/23/19 11/23/19 11/22/19 History FlexTouch U-100] rivaroxaban [Xarelto] 20 mg PO BEDTIME 11/23/19 11/23/19 11/22/19 History Allergies Allergy/AdvReac Type Severity Reaction Status Date / Time azithromycin [From Zithromax] Allergy Unknown Unknown Verified 11/23/19 11:24 sulfamethoxazole Allergy Unknown Unknown Verified 11/23/19 11:24 [From Bactrim] trimethoprim [From Bactrim] Allergy Unknown Unknown Verified 11/23/19 11:24 Current Medications Current Medications Generic Name Dose Route Start Last Admin Trade Name Freq PRN Reason Stop Dose Admin Diltiazem HCl 60 mg 11/23/19 17:00 11/23/19 17:44 Cardizem PO 60 mg Q8H KELSEA Administration Diltiazem HCl 30 mg 11/23/19 17:00 11/23/19 17:44 Cardizem PO 30 mg Q8H KELSEA Administration Enoxaparin Sodium 120 mg 11/23/19 17:45 11/23/19 17:49 Lovenox 1 mg/kg (120 mg) 120 mg SUBCUT Administration Q12H KELSEA Insulin Aspart 0 unit 11/23/19 18:00 11/23/19 17:49 Novolog SUBCUT 8 unit TIDWM KELSEA Administration Protocol Propafenone HCl 300 mg 11/23/19 17:00 11/23/19 17:43 Rythmol PO 300 mg TID KELSEA Administration Rivaroxaban 20 mg 11/23/19 21:00 11/23/19 17:17 Xarelto PO Not Given BEDTIME KELSEA PFSH Acute PFSH: Medical History Asthma Atrial fibrillation Benign hypertension Controlled type 2 diabetes mellitus with hyperglycemia, without long-term current use of insulin COPD (chronic obstructive pulmonary disease) COPD exacerbation Current smoker Dyslipidemia GERD (gastroesophageal reflux disease) High risk medication use SVT (supraventricular tachycardia) Surgical History History of appendectomy History of hysterectomy History of mastectomy Family History Father CAD (coronary artery disease) CHF (congestive heart failure) Hyperlipidemia Hypertension Lung disease Stroke Other Diabetes Denies family history of Clotting disorder Dementia Psychiatric illness Chronic kidney disease (CKD) Suicide Anesthesia complication Bleeding disorder Family history of premature coronary artery disease Cancer Social History Smoking and tobacco status: current every day smoker cigarettes Packs smoked per day: 2 Second hand smoke exposure: Yes Smoking risk assessment/counseling performed?: Yes Alcohol intake: never Desire information about alcohol rehabilitation?: No Counseling given: No Desire information about substance/drug rehabilitation?: No Counseling given: No Caregiver/support person: No Lives independently: Yes Current occupational status: employed History of recent travel: No Dietary Habits: Current diet type/program: regular Caffeine: No Exercise: What type of physical activity do you participate in?: none Safety: Seatbelt use: always Drive intoxicated or ride with intoxicated driver education road instructor?: never Home Safety: Water heater temperature set < 120 degrees: Yes Working smoke detector in home: No Fire extinguisher in home: No Carbon monoxide detector in home: No Personal Safety: Do you feel safe at home: Yes Vitals/I&O/Wt Last Vital Signs Temp 98.3 F 11/23/19 15:52 Pulse 80 11/23/19 16:50 Resp 20 H 11/23/19 16:50 BP 162/92 11/23/19 16:50 Pulse Ox 97 11/23/19 16:50 11/23/19 11/23/19 11/23/19 06:59 14:59 22:59 Intake Total 222 / 222 Balance 222 / 222 Weight last 48 hrs Weight 263 lb Physical Exam Narrative: EXAM NARRATIVE: GENERAL: Patient is alert, awake and oriented x3. NECK: No jugular vein distension. HEENT: No cyanosis. No icterus. No pallor. HEART: Regular S1 and S2. No murmur, rub or gallop. LUNGS: Clear to auscultate bilaterally. ABDOMEN: Soft, nontender and nondistended. Positive bowel sounds. No guarding, rebound or tenderness. CENTRAL NERVOUS SYSTEM: Grossly nonfocal. EXTREMITIES: Lower extremities without edema bilaterally. A&P Assessment and plan (1) Chest pain: Patient chest pain relieved with nitroglycerin is suspicious for angina however cannot rule out esophagitis or musculoskeletal. Despite of multiple episode of chest pain nearly all day cardiac markers are within normal limits. There is no significant EKG changes. Patient last stress test was in 2017 since she is not having any exertional symptoms and because of the fact this is only one time she had chest pain in a while I would therefore proceed with stress test in the morning. Further plan will be devised after reviewing stress test data. Status: Acute Qualifiers: Chest pain type: precordial pain Qualified Code(s): R07.2 - Precordial pain (2) Atrial fibrillation: Currently in sinus rhythm on anticoagulation continue medicine. Status: Acute Qualifiers: Atrial fibrillation type: paroxysmal Qualified Code(s): I48.0 - Paroxysmal atrial fibrillation (3) Current smoker: Advised quitting smoking. Patient did not give any effective plan Status: Chronic (4) Benign hypertension: Currently stable. Continue current regimen Status: Acute (5) Controlled type 2 diabetes mellitus with hyperglycemia, without long-term current use of insulin: As per medicine. 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
[2019-11-23 20:31] LABS: Glucose Point of Care 242 mg/dL (70-110)
[2019-11-24] VITALS (8 sets, daily range): BP systolic 132–176; BP diastolic 64–102; PULSE 65–92; RESP 14–21; TEMP 36.4–37; O2SAT 94–98
[2019-11-24] MEDS: dilTIAZem 60 mg Tablet PO ×2 (00:04→09:36)
[2019-11-24] MEDS: dilTIAZem 30 mg Tablet PO ×2 (00:04→09:36)
[2019-11-24 04:07] LABS: Basophils # 0.1 10^3/uL (0.0-0.1); Basophils % 0.7 %; Eosinophils # 0.3 10^3/uL (0.0-0.8); Hematocrit 45.1 % (37.0-47.0); Hemoglobin 14.8 g/dL (11.5-15.3); Lymphocytes # 3.6 10^3/uL (0.8-4.8); Lymphocytes % 37.4 %; Mean Corpuscular HGB Conc 32.8 g/dL (30.0-36.0); Mean Corpuscular Hemoglobin 30.7 pg (28.0-34.0); Mean Corpuscular Volume 93.6 fL (81-99); Mean Platelet Volume 12.2 fL (7.4-10.4); Monocytes # 0.7 10^3/uL (0.2-0.9); Neutrophils # 4.97 10^3/uL (1.8-7.7); Neutrophils % 51.7 %; Nucleated Red Blood Cells % 0 %; Platelet Count 230 10^3/cmm (130-400); Red Blood Count 4.82 10^6/uL (4.1-5.3); Red Cell Distribution Width 12.3 % (12.1-15.1); White Blood Count 9.6 10^3/uL (4.0-10.0)
[2019-11-24 04:38] LABS: Blood Urea Nitrogen 12 mg/dL (6-20); Calcium 8.5 mg/dL (8.5-10.5); Carbon Dioxide 23 mmol/L (22-29); Chloride 101 mmol/L (98-107); Glomerular Filtration Rate 128.1 mL/min (90-130); Glucose 235 mg/dL (65-115); Osmolality Calculated 290 mOsm/kg (285-295); Sodium 138 mmol/L (136-145)
[2019-11-24 04:44] LABS: Anion Gap 18.4 (5-19); Potassium 4.4 mmol/L (3.5-5.1)
[2019-11-24] MEDS: enoxaparin 120 mg/0.8 mL Syringe SUBCUT (04:55)
[2019-11-24 06:15] LABS: Glucose Point of Care 217 mg/dL (70-110)
--- NOTE | 2019-11-24 08:00 | ECG_ITS ---
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 Interpretive Statements NAME OF STUDY: LEXISCAN SESTAMIBI STRESS TEST INDICATION: Chest Pain, NOTE: Please note that this is the electrocardiogram portion of the Lexiscan/Sestamibi stress test. The perfusion scan will be documented separately. DATA: Baseline heart rate was 66 beats per minute. Baseline blood pressure was 151/75 millimeters of mercury. Target heart rate was 165. Maximum heart rate achieved was 91. which was 55% of the predicted target heart rate. Maximum blood pressure was 202/101 millimeters of mercury. The reason for ending the test was completion of the protocol. The patient did not experience any symptoms. ELECTROCARDIOGRAM: BASELINE: Sinus rhythm. Normal axis. Old anterior wall myocardial infarction. EXERCISE: After Lexiscan injection, no ST-T changes suggestive of ischemic noted. No arrhythmia noted. CONCLUSION: Please note due to baseline abnormality of the EKG specificity and sensitivity of the EKG portion of LexiScan MIBI stress test will be low 1. EKG not suggestive of ischemia 2. Lexiscan injection unremarkable. 3. Perfusion scan will be documented separately. Electronically Signed On 12-03-2019 16:46:58 CDT by Lamin Tan M.D. [id number]
[2019-11-24] MEDS: regadenoson 0.4 Mg/5 ml Syringe IVP (08:25)
[2019-11-24] MEDS: atorvastatin 40 mg Tablet 20 MG PO (09:36)
[2019-11-24] MEDS: lisinopril 20 mg Tablet PO (09:36)
[2019-11-24] MEDS: nicotine 21 mg Patch 1 PATCH TRANSDERMA (09:36)
--- NOTE | 2019-11-24 09:39 | PC.NURSE ---
patient back to room form stress test patient alert oriented and in stable condition
[2019-11-24] MEDS: propafenone 150 mg Tablet 300 MG PO ×2 (09:45→15:08)
[2019-11-24] MEDS: acetaminophen 325 mg Tablet 650 MG PO (09:48)
--- NOTE | 2019-11-24 11:23 | PC.NURSE ---
Dr. Taylor at bedside for assessment and discussion of POC smoking cessation discussed patient verbalizes that she is not ready at this time
[2019-11-24 11:24] LABS: Glucose Point of Care 346 mg/dL (70-110)
--- NOTE | 2019-11-24 12:58 | PC.RESP ---
SMOKING CESSATION AND PULMONARY REHAB INFORMATION SENT TO PATIENT.
--- NOTE | 2019-11-24 15:10 | PM.PN ---
Subjective Subjective: Interval history: Denies any more chest pain ruled out for acute coronary syndrome. Stress test turned out to be negative. Medications: Reviewed: Yes Vitals/I&O/Wt Last Vital Signs Temp 98.6 F 11/24/19 14:53 Pulse 65 11/24/19 14:53 Resp 15 11/24/19 14:53 BP 132/67 11/24/19 14:53 Pulse Ox 95 11/24/19 14:53 11/24/19 11/24/19 11/24/19 06:59 14:59 22:59 Intake Total 580 / 1042 720 / 720 Balance 580 / 1042 720 / 720 Weight last 48 hrs Weight 268 lb 4 oz Weight 263 lb Physical Exam Narrative: EXAM NARRATIVE: GENERAL: Patient is alert, awake and oriented x3. NECK: No jugular vein distension. HEENT: No cyanosis. No icterus. No pallor. HEART: Regular S1 and S2. No murmur, rub or gallop. LUNGS: Clear to auscultate bilaterally. ABDOMEN: Soft, nontender and nondistended. Positive bowel sounds. No guarding, rebound or tenderness. CENTRAL NERVOUS SYSTEM: Grossly nonfocal. EXTREMITIES: Lower extremities without edema bilaterally. Data : 11/24/19 03:05 11/24/19 03:05 A&P Assessment and plan (1) Chest pain: Most likely atypical. Stress test in negative. Continue current regimen please follow-up with cardiology Dr. Valladares as an outpatient. Status: Acute Qualifiers: Chest pain type: precordial pain Qualified Code(s): R07.2 - Precordial pain (2) Atrial fibrillation: Currently in sinus rhythm on anticoagulation continue medicine. Status: Acute Qualifiers: Atrial fibrillation type: paroxysmal Qualified Code(s): I48.0 - Paroxysmal atrial fibrillation (3) Current smoker: Advised quitting smoking. Patient did not give any effective plan Status: Chronic (4) Benign hypertension: Currently stable. Continue current regimen Status: Acute (5) Controlled type 2 diabetes mellitus with hyperglycemia, without long-term current use of insulin: As per medicine. Status: Chronic Attestations Medical Necessity Statement*: Require continuation hospitalization for above defined care. Coding Level of Care Code Established Pt Acute Group Work Program Director for g Fwd Patient Type Established History Expanded Problem Focused Exam Expanded Problem Focused Medical Decision Making Moderate Complexity Diagnoses Chest pain R07.2 Chest pain type: precordial pain Atrial fibrillation I48.0 Atrial fibrillation type: paroxysmal Current smoker F17.200 Benign hypertension I10 Controlled type 2 diabetes mellitus with hyperglycemia, without long-term current use of insulin E11.65
--- NOTE | 2019-11-24 15:28 | PM.DCS ---
Discharge Providers Date of Admission: 11/23/19 14:21 Date of Discharge: November 24, 2019 Attending Provider at Admission: Flavia Taylor DO Attending Provider at Discharge: Flavia Taylor DO Primary Care Provider: RICHARD Flores Diagnoses at Discharge Discharge Diagnosis (1) Chest pain: Status: Acute Qualifiers: Chest pain type: precordial pain Qualified Code(s): R07.2 - Precordial pain (2) Atrial fibrillation: Status: Acute Qualifiers: Atrial fibrillation type: paroxysmal Qualified Code(s): I48.0 - Paroxysmal atrial fibrillation (3) Current smoker: Status: Chronic (4) Benign hypertension: Status: Acute (5) Controlled type 2 diabetes mellitus with hyperglycemia, without long-term current use of insulin: Status: Chronic Reason for Visit Reason for Visit: chest pain Physical Exam Const: COMMON NORMALS: patient oriented x3 and alert GENERAL APPEARANCE: cooperative ORIENTATION/CONSCIOUSNESS: Yes awake, Yes oriented to person, Yes oriented to place and Yes oriented to time HENMT: COMMON NORMALS: normocephalic and atraumatic HEAD & SCALP: normocephalic and atraumatic Eye: COMMON NORMALS: Equal, round and reactive pupils present PUPIL: Yes Equal, round and reactive pupils present Neck/C-Spine: COMMON NORMALS: supple GENERAL: Yes normal visual inspection Resp: COMMON NORMALS: normal respiratory effort and clear to auscultation bilaterally EFFORT & INSPECTION: Yes able to speak in complete sentences AUSCULTATION: clear to auscultation bilaterally, no rhonchi and no wheezes OTHER: Prolonged expiratory phase, no appreciable wheezing or rhonchi Cardio: COMMON NORMALS: regular rate, regular rhythm and No murmurs present (Cardio) RATE: regular rate RHYTHM: regular rhythm GI: COMMON NORMALS: Soft to palpation and non-tender INSPECTION: No abdominal distension AUSCULTATION: Yes normoactive bowel sounds PALPATION: Yes Soft to palpation Extremity: COMMON NORMALS: no clubbing, cyanosis or edema and no calf tenderness Neuro: COMMON NORMALS: patient oriented x3, CN's II-XII intact bilaterally, moves all extremities and no focal motor deficits SENSORIUM/ORIENTATION: Yes alert, Yes oriented to person, Yes oriented to place and Yes oriented to time SPEECH: speech normal Psych: COMMON NORMALS: mental status grossly normal and cooperative Skin: COMMON NORMALS: no rashes or lesions noted GENERAL SKIN EXAM: no rashes or lesions noted Discharge Data Data Completed and Pending: Completed Studies During Hospitalization Category Date Time Status Cardiac Stress Te st MIBI [Sestamibi Stress Test Reque st Exams 11/24/19 08:00 Draft ] Routine XR chest 1V jorge ble [id number] Stat Exams 11/23/19 10:36 Completed NM lynette perf SPECT r/s* [id number] Routin e Nuc Med 11/24/19 19:58 Completed Pending at discharge Category Date Time Status Cardiac Stress Te st MIBI [Sestamibi Stress Test Reque st Exams 11/24/19 08:08 Ordered ] Routine Basic Metabolic P pietro AM LABS Lab 11/25/19 04:00 Ordered Basic Metabolic P pietro AM LABS Lab 11/26/19 04:00 Ordered Complete Blood Co unt w/Auto AM LABS Lab 11/25/19 04:00 Ordered Complete Blood Co unt w/Auto AM LABS Lab 11/26/19 04:00 Ordered Labs from last 24 hours 11/24/19 11/24/19 11/24/19 10:42 06:06 03:05 WBC RBC Hgb Hct MCV MCH MCHC RDW Plt Count MPV Neut % (Auto) Lymph % (Auto) [place] % (Auto) Eos % (Auto) Baso % (Auto) Neut # (Auto) Lymph # (Auto) [place] # (Auto) Eos # (Auto) Baso # (Auto) Nucleated RBC % (a uto) Nucleated RBCs # PT INR Sodium 138 Potassium 4.4 Chloride 101 Carbon Dioxide 23 Anion Gap 18.4 BUN 12 Creatinine 0.5 GFR Calculation 128.1 Glucose 235 H POC Glucose 346 217 Calculated Osmolal ity 290 Calcium 8.5 Troponin T Hi Sens 6Hr Troponin T Hi Sens 6Hr Delta TSH 11/24/19 11/23/19 11/23/19 03:05 20:03 17:20 WBC 9.6 RBC 4.82 Hgb 14.8 Hct 45.1 MCV 93.6 MCH 30.7 MCHC 32.8 RDW 12.3 Plt Count 230 MPV 12.2 H Neut % (Auto) 51.7 Lymph % (Auto) 37.4 [place] % (Auto) 7.0 Eos % (Auto) 3.0 Baso % (Auto) 0.7 Neut # (Auto) 4.97 Lymph # (Auto) 3.6 [place] # (Auto) 0.7 Eos # (Auto) 0.3 Baso # (Auto) 0.1 Nucleated RBC % (a uto) 0 Nucleated RBCs # 0.0 PT INR Sodium Potassium Chloride Carbon Dioxide Anion Gap BUN Creatinine GFR Calculation Glucose POC Glucose 242 251 Calculated Osmolal ity Calcium Troponin T Hi Sens 6Hr Troponin T Hi Sens 6Hr Delta TSH 11/23/19 11/23/19 11/23/19 16:47 13:00 10:54 WBC RBC Hgb Hct MCV MCH MCHC RDW Plt Count MPV Neut % (Auto) Lymph % (Auto) [place] % (Auto) Eos % (Auto) Baso % (Auto) Neut # (Auto) Lymph # (Auto) [place] # (Auto) Eos # (Auto) Baso # (Auto) Nucleated RBC % (a uto) Nucleated RBCs # PT 15.10 H INR 1.15 Sodium Potassium Chloride Carbon Dioxide Anion Gap BUN Creatinine GFR Calculation Glucose POC Glucose Calculated Osmolal ity Calcium Troponin T Hi Sens 6Hr 6.00 Troponin T Hi Sens 6Hr Delta 0 TSH 1.33 Vitals: Last Vital Signs Temp 98.6 F 11/24/19 14:53 Pulse 65 11/24/19 14:53 Resp 15 11/24/19 14:53 BP 132/67 11/24/19 14:53 Pulse Ox 95 11/24/19 14:53 Discharge Plan Discharge Patient Disposition: Home Condition: Stable Prescriptions: New pantoprazole [Protonix] 40 mg tablet,delayed release (DR/EC) 40 mg PO DAILY 30 Days Qty: 30 RF: 0 Continued Charmaine-C with Bioflavonoids 1,000-200 mg tablet 1,000 tab PO DAILY RF: 0 valerian root 445 mg capsule 1,335 mg PO DAILY RF: 0 glipizide 10 mg tablet 10 mg PO BID 30 Days Qty: 60 RF: 2 atorvastatin 20 mg tablet 20 mg PO DAILY Qty: 30 RF: 2 lisinopril 20 mg tablet 20 mg PO DAILY 30 Days Qty: 30 RF: 2 diltiazem HCl 90 mg tablet 90 mg PO Q8H 30 Days Qty: 90 RF: 2 albuterol sulfate [ProAir HFA] 90 mcg/actuation HFA aerosol inhaler 2 puff INHALATION Q4H PRN (Reason: Shortness Of Breath Or Wheezing) 30 Days Qty: 6.7 RF: 2 (DME) pen needle, diabetic 33 gauge x 5/32 needle See Rx Instructions .ROUTE .MEDSUPPLY Qty: 100 RF: 5 aspirin 325 mg tablet 325 mg PO ONCE Qty: 1 RF: 0 nitroglycerin [Nitrostat] 0.4 mg tablet, sublingual 0.4 mg SUBLINGUAL Q5M Qty: 2 RF: 0 chlorpheniramine maleate 4 mg tablet 8 mg PO Q8H RF: 0 propafenone 300 mg tablet 300 mg PO TID Qty: 270 RF: 3 Tylenol Arthritis Pain 650 mg Tablet Extended Release 1,300 mg PO Q8H PRN (Reason: unknown) RF: 0 Xarelto 20 mg tablet 20 mg PO BEDTIME RF: 0 Tresiba FlexTouch U-100 100 unit/mL (3 mL) insulin pen 10 unit SUBCUT BEDTIME RF: 0 Trulicity 1.5 mg/0.5 mL pen injector 1.5 mg SUBCUT Q7D RF: 0 Discharge Orders: Discharge Order (Routine); Ordered 11/24/19 Ordered By: Flavia Taylor Referrals: Theodora Valladares MD [Physician] - 1 month Ángel Vance FNP-C [Primary Care Provider] - 4-7 days Discharge Diet: Diabetic Discharge Activity: Increase activity as tolerated Activity Restrictions/Additional Instructions: Follow-up with your primary care provider in 4 to 7 days Follow-up with Dr. Valladares in 4 to 6 weeks Start on PPI, Protonix 40 mg once daily Call your physician or present to the ED for any acute illness or concern Continue to monitor your blood sugar daily and present a blood glucose log to your primary care provider for further titration of insulin as indicated Strongly encouraged tobacco cessation, when you are ready to discuss stopping smoking please call your primary care provider Discharge Attestations Time Spent in Discharge Care*: greater than 30 min Specific Discharge Activities: Specific discharge activities: educating patient Time Spent in Smoking Cessation: Time spent discussing smoking cessation with patient: more than 10 minutes Details of Smoking Cessation Education: Long discussion with patient at bedside about tobacco cessation on date of discharge, offered her nicotine patches however she declined reporting that she is not interested in stopping smoking at this time. Discussed with her the risk of continued smoking. 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
--- NOTE | 2019-11-24 16:19 | PC.NURSE ---
Patient discharged at this time to home self care, discharge instructions provided and explained; patient verbalized understanding. Iv discontinued cath intact min bleeding noted bandage placed. Patient assisted to wheel chair and accompanied to private vehicle; all belongings and discharge instructions in hand. patient alert and instable condition.
--- NOTE | 2019-11-24 19:58 | NMCV_ITS ---
NM lynette perf SPECT r/s* [id number] Soni Head Age: 54 Gender: F : 1965 Exam Date: 11/24/2019 07:12 Ordering Phys: Lamin Tan MD ([email or web address]) Technologist: REG Finch Exam Location: [facility] Indications: CHEST PAIN STRESS TEST Please see separate stress test report in [facility] for full findings IMAGE PROTOCOL Rest/Stress 1 Lexiscan Day Radiopharmaceutical Dose (mCi) Administration Site Administered by Rest: Tc-99m 11.0 IV REG Finch Sestamibi Stress:Tc-99m 32.9 IV REG Correia Sestamibi Rest: 24-Nov-2019 60 Discovery 630 Stress: 24-Nov-2019 30 Discovery 630 0.4mg Lexiscan. Supine position only as patient was unable to lay prone. SPECT RESULTS Technical Quality: Excellent Raw Data Analysis: Normal Image Corrections: No attenuation or motion correction applied Summed Stress Score: 0 Summed Rest Score: 4 Summed Difference Score: 0 PERFUSION FINDINGS Medium-sized area of decreased tracer uptake noted in basal to mid anterior anteroseptal wall on the rest images which improved significantly on stress images suggestive of artifact. Medium-sized area of patchy decreased tracer uptake noted in basal to distal inferior wall on the rest images which improved significantly over stress images suggestive of artifact. FUNCTIONAL RESULTS (calculated via Gated SPECT) Stress Image LV EF (%): 77 Stress EDV (mL):96 TID: 0.84 Stress ESV (mL):22 Rest Image LV EF (%): 77 FUNCTIONAL FINDINGS: There is normal left ventricular systolic function. There is normal left ventricular systolic function. IMPRESSIONS This study is negative for ischemia and low probability for obstructive coronary artery disease. EKG segment will be documented separately. Lamin Tan MD (Electronically Signed) Final Date: 24 November 2019 15:07 S
== END 2019-11-24 16:24 | disposition home or self-care (01) ==
LOC: ER 11:04 → CSU 15:27
PROVIDERS: Admitting Provider Family Medicine; Emergency Provider Family Medicine; PCP Nurse Practitioner; Visit Provider Family Medicine
DX: R07.2 Precordial pain (principal); I48.0 Paroxysmal atrial fibrillation; J42 Unspecified chronic bronchitis; E78.5 Hyperlipidemia, unspecified; I47.1 Supraventricular tachycardia; I10 Essential (primary) hypertension; E11.65 Type 2 diabetes mellitus with hyperglycemia; F17.210 Nicotine dependence, cigarettes, uncomplicated; Z79.51 Long term (current) use of inhaled steroids; Z79.84 Long term (current) use of oral hypoglycemic drugs; Z79.899 Other long term (current) drug therapy; J45.909 Unspecified asthma, uncomplicated; Z79.01 Long term (current) use of anticoagulants
CPT/HCPCS: 12345; 36415; 36416; 71045; 78452; 80048; 80053; 82962; 84443; 84484; 85025; 85378; 85610; 93005; 93017; 96372; 96374; 96375; 99284; 99285; A9500; G0378; J1650; J1815; J2270; J2785

== ENCOUNTER → 2019-11-30 10:31 | Outpatient (BNVA) | payer OTHER, SELFPAY | PROVIDERS: PCP Nurse Practitioner; Visit Provider Nurse Practitioner Family | DX: E78.5 Hyperlipidemia, unspecified (principal); E11.65 Type 2 diabetes mellitus with hyperglycemia; I10 Essential (primary) hypertension; J44.9 Chronic obstructive pulmonary disease, unspecified; F17.200 Nicotine dependence, unspecified, uncomplicated; I47.1 Supraventricular tachycardia; E11.42 Type 2 diabetes mellitus with diabetic polyneuropathy; R07.9 Chest pain, unspecified | CPT/HCPCS: 80053; 80061; 83036; 84443; 85025 ==

== ENCOUNTER → 2019-12-02 12:21 | Outpatient (BNVA) | payer OTHER, SELFPAY | PROVIDERS: PCP Nurse Practitioner; Visit Provider Nurse Practitioner Family | DX: Z20.818 Contact with and (suspected) exposure to other bacterial communicable diseases (principal) | CPT/HCPCS: 87635 ==

== ENCOUNTER 2019-12-10 08:16 | Outpatient (CLI) | payer OTHER, SELFPAY ==
--- NOTE | 2019-12-10 08:30 | CT_ITS ---
WS: [id number] CT CHEST TECHNIQUE: Contrast enhanced CT of the chest with coronal and sagittal reformatted images. CLINICAL INFORMATION: chest pain COMPARISON: None. DLP: 1026.[address] scans at [facility] use at least one of these dose optimization techniques: automat ed exposure control; mA and/or kV adjustment per patient size (includes targeted exams where dose is matched to clinical indication); or iterative reconstruction. FINDINGS: Mild chronic emphysematous changes. Lungs are well aerated. A few tree-in-bud infiltrates in both upper lobes. No consolidation or pleura l fluid. No focal pneumonia. Calcified granuloma right lower lobe. Proximal main pulmonary arteries appear normal. Normal caliber thoracic aorta. No mediastinal or chele r lymphadenopathy. Mild diffuse fatty infiltration liver. Adrenal glands are normal. No axillary lymphadenopathy. Surgic al clips right axilla. Right lower lobe exophytic thyroid nodule measuring 1.[address]/CT chest w con* [id number] IMPRESSION: 1. Mild chronic emphysematous changes. No focal pneumonia. 2. A few tree-in-bud infiltrates in both upper lobes can be seen with infectio us or inflammatory etiologies. 3. No mediastinal or hilar lymphadenopathy. 4. Right lower lobe exophytic thyroid nodule measuring 1.5 CM. This can be fol lowed up with ultrasound. 5. Mild diffuse fatty infiltration liver.
[2019-12-10] MEDS: iohexol 300 mg/mL 100 mL Btl IV (08:54)
== END 2019-12-10 08:17 | disposition home or self-care (01) ==
LOC: RADWPI 08:23
PROVIDERS: PCP Nurse Practitioner; Visit Provider Nurse Practitioner Family
DX: R07.9 Chest pain, unspecified (principal); J43.9 Emphysema, unspecified; K76.0 Fatty (change of) liver, not elsewhere classified; E04.1 Nontoxic single thyroid nodule
CPT/HCPCS: 71260; Q9967

== ENCOUNTER → 2019-12-17 09:28 | Outpatient (BNVA) | payer OTHER, SELFPAY | PROVIDERS: PCP Nurse Practitioner; Visit Provider Nurse Practitioner Family | DX: Z11.59 Encounter for screening for other viral diseases (principal) | CPT/HCPCS: 87635 ==

== ENCOUNTER 2019-12-23 12:42 | Outpatient (CLI) | payer OTHER, SELFPAY ==
--- NOTE | 2019-12-23 14:15 | PFTS_ITS ---
Date of Study:12/23/19 Date of Dictation: MECHANICS: Forced vital capacity (FVC) is normal. Forced expiratory volume in one second (FEV1) is normal. FEV1/FVC is normal. FLOW VOLUME LOOP: Reduced flow at all lung volumes with scooping. There is hesitation in the forced expiratory maneuver. LUNG VOLUMES: Total lung capacity (TLC) is normal. Residual volume (RV) is normal. DIFFUSING CAPACITY FOR CARBON MONOXIDE: Normal. INTERPRETATION: The pulmonary function tests are normal. The reduced flow and scooping in the flow volume loop is likely consistent with small airways disease. Lung volumes are normal. Gas exchange (DLCO) is normal. MTDD
== END 2019-12-23 12:43 | disposition home or self-care (01) ==
PROVIDERS: PCP Nurse Practitioner; Visit Provider Nurse Practitioner Family
DX: J44.9 Chronic obstructive pulmonary disease, unspecified (principal); F17.200 Nicotine dependence, unspecified, uncomplicated
CPT/HCPCS: 94010; 94726; 94729

== ENCOUNTER 2020-01-06 12:57 | Outpatient (CLI) | payer OTHER, SELFPAY ==
--- NOTE | 2020-01-06 13:30 | US_ITS ---
WS: [id number] THYROID ULTRASOUND (TI-RADS CRITERIA) History: Thyroid nodule. Technique: Ultrasound examination of the thyroid and adjacent soft tissues is performed. FINDINGS: RIGHT thyroid lobe: 2.3 x 2.6 x 5.1 cm. LEFT thyroid lobe: 1.8 x 1.6 x 4.8 cm. Isthmus: 0.3 cm. Estimated total number of nodules greater than or equal to 1 cm: 3 Number of spongiform nodules greater than or equal to 2 cm not described below (TR1): 0 Number of mixed cystic and solid nodules greater than or equal to 1.5 cm not described below (TR2): 0 NODULE: 1 Size: 1.8 x 1.1 x 1.7 cm. Location: Posterior inferior. RIGHT. Composition: Solid/almost completely solid (2) Echogenicity: Very hypoechoic (3) Shape: Not taller than wide (0) Margins: Lobulated/irregular (2) Echogenic foci: None (0) ACR TI-RADS total points: 7 ACR TI-RADS risk category: TR5 NODULE: 2 Size: 1.6 x 1.0 x 1.9 cm. Location: Posterior mid RIGHT gland. Composition: Solid/almost completely solid (2) Echogenicity: Isoechoic (1) Shape: Not taller than wide (0) Margins: Smooth (0) Echogenic foci: None (0) ACR TI-RADS total points: 3 ACR TI-RADS risk category: TR3 NODULE: 3 Size: 1.4 x 0.5 x 1.0 cm. Location: Mid posterior LEFT gland. Composition: Solid/almost completely solid (2) Echogenicity: Hypoechoic (2) Shape: Not taller than wide (0) Margins: Smooth (0) Echogenic foci: None (0) ACR TI-RADS total points: 4 ACR TI-RADS risk category: TR4 US/US thyroid 90239 Impression: TR5 Recommendation:Ultrasound-guided fine-needle aspiration hypoechoic nodule lower RIGHT thyroid. Additional nodules ( mid RIGHT and lower LEFT) for which follow-up ultrasound i n one, 2, 3, and 5 years. If thyroid nodule(s) change on follow-up examinations the recommendations will be altered as necessary.
== END 2020-01-06 12:58 | disposition home or self-care (01) ==
LOC: RAD 13:02
PROVIDERS: PCP Nurse Practitioner; Visit Provider Nurse Practitioner Family
DX: E04.1 Nontoxic single thyroid nodule (principal)
CPT/HCPCS: 76536

== ENCOUNTER → 2020-01-20 11:44 | Outpatient (BNVA) | payer OTHER, SELFPAY | PROVIDERS: PCP Nurse Practitioner; Visit Provider Nurse Practitioner Family | DX: Z11.59 Encounter for screening for other viral diseases (principal); R05 Cough | CPT/HCPCS: 87635 ==

== ENCOUNTER → 2020-03-02 09:56 | Outpatient (BNVA) | payer OTHER, SELFPAY | PROVIDERS: PCP Nurse Practitioner; Visit Provider Nurse Practitioner | DX: J44.1 Chronic obstructive pulmonary disease with (acute) exacerbation (principal) | CPT/HCPCS: 71046 ==

== ENCOUNTER → 2020-04-04 09:38 | Outpatient (BNVA) | payer OTHER, SELFPAY | PROVIDERS: PCP Nurse Practitioner; Visit Provider Nurse Practitioner Family | DX: E78.5 Hyperlipidemia, unspecified (principal); E11.65 Type 2 diabetes mellitus with hyperglycemia; I10 Essential (primary) hypertension; J44.9 Chronic obstructive pulmonary disease, unspecified; F17.200 Nicotine dependence, unspecified, uncomplicated; I47.1 Supraventricular tachycardia | CPT/HCPCS: 80053; 80061; 83036; 84443; 85025 ==

== ENCOUNTER 2020-06-29 16:13 | Emergency (ER) | payer MEDICAID, SELFPAY ==
[2020-06-29 16:15] VITALS: BP 113/77; PULSE 116; RESP 18; TEMP 36.9; O2SAT 97; BMI 38.0
--- NOTE | 2020-06-29 16:37 | ECG_ITS ---
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 Measurements Intervals [place] Rate: 122 P: 226 NE: 193 QRS: 242 QRSD: 138 T: 37 QT: 348 QTc: 497 Interpretive Statements SINUS TACHYCARDIA WITH OCCASIONAL SUPRAVENTRICULAR PREMATURE COMPLEXES RIGHT AXIS DEVIATION [QRS AXIS > 100] INTRAVENTRICULAR CONDUCTION DELAY [130+ ms QRS DURATION] POSSIBLE ANTERIOR MYOCARDIAL INFARCTION , OF INDETERMINATE AGE [30 ms Q WAVE IN V3/V4, OR R < 0.2 mV IN V4] WARNING: DATA QUALITY MAY AFFECT INTERPRETATION Compared to ECG 11/23/2019 13:47:23 Right-axis deviation now present Myocardial infarct finding now present Sinus bradycardia no longer present Electronically Signed On 06-29-2020 22:28:22 CDT by Nan Coe M.D. [id number]
--- NOTE | 2020-06-29 16:37 | XRR_ITS ---
PROCEDURE INFORMATION: Exam: XR Chest Exam date and time: 06/29/2020 4:42 PM Age: 55 years old Clinical indication: Other: Palpatations; Chest pain; Type not specified; Prior surgery; Surgery type: Mastectomy; Patient HX: HX of breast CA; Additional info: Chest pain, palpatations TECHNIQUE: Imaging protocol: XR of the chest. Views: 1 view. COMPARISON: CR XR chest 2V* [id number] 03/02/2020 10:04 AM FINDINGS: Lungs: No consolidation. Pleural spaces: Unremarkable. No pleural effusion. No pneumothorax. Heart/Mediastinum: No cardiomegaly. Bones/joints: No acute fracture. XR/XR chest 1V portable [id number] IMPRESSION: No acute findings.
[2020-06-29 17:16] LABS: Basophils # 0.1 10^3/uL (0.0-0.1); Basophils % 0.8 %; Eosinophils # 0.3 10^3/uL (0.0-0.8); Eosinophils % 2.4 %; Hematocrit 57.6 % (37.0-47.0); Lymphocytes # 4.8 10^3/uL (0.8-4.8); Lymphocytes % 33.9 %; Mean Corpuscular Hemoglobin 29.8 pg (28.0-34.0); Mean Corpuscular Volume 90.4 fL (81-99); Mean Platelet Volume 12.1 fL (7.4-10.4); Monocytes # 0.8 10^3/uL (0.2-0.9); Neutrophils # 7.93 10^3/uL (1.8-7.7); Neutrophils % 56.4 %; Nucleated Red Blood Cells % 0 %; Platelet Count 341 10^3/cmm (130-400); Red Blood Count 6.37 10^6/uL (4.1-5.3); Red Cell Distribution Width 12.4 % (12.1-15.1); White Blood Count 14.1 10^3/uL (4.0-10.0)
--- NOTE | 2020-06-29 17:16 | PC.NURSE ---
EKG done at 1657 and shown to ER doctor
[2020-06-29 17:17] VITALS: BP 99/64; PULSE 121; RESP 22; O2SAT 96
[2020-06-29 17:41] LABS: Add Urine Microscopic? YES; Bacteria Urine TRACE /hpf; Bilirubin Urine Neg (Negative); Blood Urine Neg (Negative); Glucose Urine UA 4+ (Normal); Ketones Urine Negative (Negative); Leukocyte Esterase Urine Negative (Negative); Nitrate Urine Negative (Negative); Protein Urine 2+ (Negative); RBC Urine 0-4 /hpf (0-2); Specific Gravity, Urine 1.015 (1.005-1.030); Urine Appearance Clear (CLEAR); Urine Color Yellow (Yellow); Urobilinogen Urine Norm (Negative); WBC Urine 0-4 /hpf (0-5); pH Urine 6 (5-7)
[2020-06-29 17:55] LABS: D Dimer 1.12 ug/mIFEU (0-0.59)
[2020-06-29 18:02] LABS: Troponin(5th) Baseline 8 ng/L (0-10)
[2020-06-29 18:10] LABS: Alanine Aminotransferase 11 U/L (0-33); Albumin Level 4.3 g/dL (3.5-5.2); Alkaline Phosphatase 140 IU/L (35-105); Aspartate Amino Transferase 8 U/L (0-32); Blood Urea Nitrogen 13 mg/dL (6-20); Calcium 10.1 mg/dL (8.5-10.5); Carbon Dioxide 29 mmol/L (22-29); Chloride 93 mmol/L (98-107); Globulin 2.7 g/dL (1.3-4.6); Glomerular Filtration Rate 103.4 mL/min (90-130); Glucose 457 mg/dL (65-115); NT Pro B Type Natriuretic Pept 2383 pg/mL (0-125); Osmolality Calculated 298 mOsm/kg (285-295); Sodium 134 mmol/L (136-145); Total Bilirubin 0.6 mg/dL (0.15-1.2)
--- NOTE | 2020-06-29 18:37 | ECG_ITS ---
[facility] Test Date: 2020-06-29 Pat Name: Soni Head Department: Room: Gender: Female Primary Care Provider: : 1965 Requested By: Juan Alberto Melissa Order Number: [id number] Reyes MD: Nan Coe M.D. Measurements Intervals [place] Rate: 74 P: 48 PA: 171 QRS: -10 QRSD: 114 T: 65 QT: 409 QTc: 455 Interpretive Statements SINUS RHYTHM LOW QRS VOLTAGE IN EXTREMITY LEADS [QRS DEFLECTION < 0.5 mV IN LIMB LEADS] POSSIBLE ANTERIOR MYOCARDIAL INFARCTION , PROBABLY OLD [30 ms Q WAVE IN V3/V4, OR R < 0.2 mV IN V4] Compared to ECG 06/29/2020 16:57:56 Low QRS voltage now present Sinus tachycardia no longer present Right-axis deviation no longer present Intraventricular conduction delay no longer present Myocardial infarct finding still present Electronically Signed On 06-29-2020 21:13:22 CDT by Nan Coe M.D. [id number]
--- NOTE | 2020-06-29 18:46 | PC.NURSE ---
EKG done at 1840 and shown to
--- NOTE | 2020-06-29 18:52 | CTR_ITS ---
PROCEDURE INFORMATION: Exam: CTA Chest With Contrast Exam date and time: 06/29/2020 7:01 PM Age: 55 years old Clinical indication: Other: Palpitations; Prior surgery; Surgery type: Mastectomy; Additional info: Palpitations. Elevated d dimer TECHNIQUE: Imaging protocol: Computed tomographic angiography of the chest with contrast. 3D rendering (Not supervised by radiologist): MIP and/or 3D reconstructed images were created by the technologist. Radiation optimization: All CT scans at this facility use at least one of these dose optimization techniques: automated exposure control; mA and/or kV adjustment per patient size (includes targeted exams where dose is matched to clinical indication); or iterative reconstruction. Contrast material: OMNI 350; Contrast volume: 74 ml; Contrast route: INTRAVENOUS (IV); COMPARISON: CT chest w con* [id number] 12/10/2019 8:46 AM RADIATION DOSE METRICS: Total DLP (mGy-cm): 617.12 FINDINGS: Pulmonary arteries: No pulmonary embolus. Aorta: Unremarkable. No aortic aneurysm. No aortic dissection. Lungs: Small calcified granulomas are seen in both lungs. Mild dependent atelectasis is also observed observed in bilateral lower lobes. No acute airspace process is visualized. Pleural spaces: Unremarkable. No pneumothorax. No pleural effusion. Heart: The heart is normal in size. Lymph nodes: Unremarkable. No enlarged lymph nodes. Bones/joints: No acute fracture. A thin curvilinear posterior dural calcification is again seen at the T6 level. No canal stenosis. Soft tissues: Right axillary surgical clips are appreciated. Bilateral mastectomies are noted. CT/CT angio chest PE protcl [id number] IMPRESSION: No pulmonary embolus or acute pulmonary pathology. Radiation Dose CTDIVOL = (mGy): DLP = 617.12 (mGy-cm)
[2020-06-29] MEDS: iohexol 350 mg/mL 100 mL Btl IV (19:17)
[2020-06-29 19:23] LABS: Troponin 5 2HR 6.36 ng/L (0-10); Troponin 5 2HR Delta -1.64 ABS# (0-10)
[2020-06-29 20:20] VITALS: BP 115/80; PULSE 79; RESP 20; O2SAT 97
[2020-06-29 21:37] VITALS: BP 115/80; PULSE 82; RESP 21; O2SAT 98
--- NOTE | 2020-06-29 23:03 | W.ED.CHESTPA ---
HPI - Chest Pain General: Chief Complaint: Chest Pain Stated Complaint: Patient stated SVT/ Racing Heart Time Seen by Provider: 06/29/20 16:34 History of Present Illness: HPI narrative: The patient is a 55-year-old female with past medical history occasional episode of PVC. Her last episode was more than 2 months ago and she has worn a Holter monitor previously. She also says she has episodes of bradycardia at home and it has been months since she had that. She is not usually symptomatic of those episodes but she does carry a pulse oximeter around and today she had an episode which she did not notice but she did put the pulse oximeter on her finger and it read mid 30s for a moment. When she moves around the bradycardia quickly returns to a normal level. However she is bothered by the episodes of tachycardia that she has and today she had an episode in the 120s and decided to come to the ER. On arrival her heart rate was 116 and after relaxing for a few minutes it changed to sinus rhythm around 80 bpm. Her symptoms also resolved. When her heart races she does feel a mild tightness in her chest however after she relaxed the tightness resolved. MD complaint: chest heaviness Onset (ago): minute(s) (30) Timing of current episode: episodic Prior episodes: Yes Onset: during rest and during exertion Pain location: left chest Severity: moderate Quality: tightness Relieving factors: nothing Exacerbating factors: exertion Associated symptoms: Reports no associated symptoms; Deny abdominal pain, dyspnea or palpitations Review of Systems General: Reports: 10 or more systems reviewed and unremarkable except in HPI and below Const: Denies: fatigue Eyes: Denies: change in vision, blurry vision or eye redness ENMT: Denies: throat pain, swelling of lips/tongue, ear or mastoid pain or nasal congestion Card: Denies: chest pain, palpitations, irregular heart rhythm, edema, dyspnea on exertion or orthopnea Resp: Denies: dyspnea, productive cough or non-productive cough GI: Denies: abdominal pain, diarrhea or GI cramping : Denies: flank pain, difficulty voiding, urinary frequency or urinary urgency Musc: Denies: neck pain, back pain, extremity pain, joint pain, joint redness, limited range of motion or muscle weakness Skin/Breast: Denies: rash, pruritus, erythema, skin pain or skin tenderness Neuro: Denies: headache(s), numbness in extremities, weakness in extremities, sensory changes, difficulty walking, dizziness, confusion or Slurred speech present Psych: Denies: anxiety or depression Endo: Denies: polyuria All/Imm: Denies: urticaria, throat swelling or tongue swelling PFSH ED PFSH: Medical History (Updated 06/29/20 @ 21:04 by Juan Alberto Melissa MD) Asthma Atrial fibrillation Benign hypertension Controlled type 2 diabetes mellitus with hyperglycemia, without long-term current use of insulin COPD (chronic obstructive pulmonary disease) COPD exacerbation Current smoker Dyslipidemia GERD (gastroesophageal reflux disease) High risk medication use SVT (supraventricular tachycardia) Thyroid nodule Surgical History History of appendectomy History of hysterectomy History of mastectomy Family History Father CAD (coronary artery disease) CHF (congestive heart failure) Hyperlipidemia Hypertension Lung disease Stroke Other Diabetes Denies family history of Clotting disorder Dementia Psychiatric illness Chronic kidney disease (CKD) Suicide Anesthesia complication Bleeding disorder Family history of premature coronary artery disease Cancer Social History Smoking and tobacco status: current every day smoker cigarettes Packs smoked per day: 2 Second hand smoke exposure: Yes Smoking risk assessment/counseling performed?: Yes Alcohol intake: never Desire information about alcohol rehabilitation?: No Counseling given: No Desire information about substance/drug rehabilitation?: No Counseling given: No Caregiver/support person: No Lives independently: Yes Current occupational status: employed History of recent travel: No Physical Exam Const: COMMON NORMALS: no acute distress, average body habitus, patient oriented x3, no limitations, healthy appearing, alert and well nourished GENERAL APPEARANCE: cooperative, comfortable, well kempt and well developed ORIENTATION/CONSCIOUSNESS: Yes awake, Yes oriented to person, Yes oriented to place and Yes oriented to time HENMT: COMMON NORMALS: normocephalic, external ears normal and Normal external nose present HEAD & SCALP: normal to inspection and normocephalic NOSE: Normal external nose present EXTERNAL EAR: Yes external ears normal MOUTH: Normal oral and palatal mucosa present THROAT: posterior oropharynx normal Eye: COMMON NORMALS: Equal, round and reactive pupils present and EOMs intact bilaterally GENERAL EYE: appearance normal, both eyes and all related structures PUPIL: Yes Equal, round and reactive pupils present Neck/C-Spine: COMMON NORMALS: full ROM, no lymphadenopathy, no meningeal signs and no JVD GENERAL: Yes normal visual inspection Lymph: LYMPHATIC: no lymphadenopathy noted Chest: COMMONS NORMALS: normal inspection of the chest and normal palpation of entire chest wall Resp: COMMON NORMALS: normal respiratory effort, No retractions, No use of accessory muscles, clear to auscultation bilaterally and percussion normal EFFORT & INSPECTION: Yes able to speak in complete sentences AUSCULTATION: clear to auscultation bilaterally PERCUSSION: percussion normal Cardio: COMMON NORMALS: no JVD, regular rate, regular rhythm, S1 normal heart sound present, S2 normal heart sound present and Peripheral pulses 2+ throughout RATE: regular rate RHYTHM: regular rhythm HEART SOUNDS: S1 normal heart sound present and S2 normal heart sound present PERIPHERAL PULSES: Peripheral pulses 2+ throughout GI: COMMON NORMALS: Normal to inspection, nondistended, normoactive bowel sounds present, Soft to palpation, non-tender and no masses INSPECTION: Yes normal to inspection PALPATION: Yes Soft to palpation : COMMON NORMALS: Yes no CVA tenderness BLADDER/KIDNEY EXAM: Yes no CVA tenderness Back/Pelvis: COMMON NORMALS: no CVA tenderness, thoracic and lumbar spine normal to inspection, no thoracic nor lumbar tenderness and thoraco-lumbar ROM normal Extremity: COMMON NORMALS: normal to inspection, full ROM, capillary refill normal, no joint enlargement and no pedal edema GENERAL: Yes normal exam except as noted Neuro: COMMON NORMALS: patient oriented x3, CN's II-XII intact bilaterally, moves all extremities, no focal motor deficits, no sensory deficits noted and gait normal SENSORIUM/ORIENTATION: Yes alert, Yes oriented to person, Yes oriented to place and Yes oriented to time MENINGEAL SIGNS: Yes no meningeal signs Psych: COMMON NORMALS: mental status grossly normal, Normal thought process present, cooperative, normal affect and speech normal APPEARANCE: Yes well kempt ATTITUDE: Yes calm SPEECH: Yes normal speech THOUGHT PROCESS: Normal thought process present Skin: COMMON NORMALS: no rashes or lesions noted GENERAL SKIN EXAM: no rashes or lesions noted Course Vital Signs: Vital signs: Vital Signs Temperature 98.4 F 06/29/20 16:15 Pulse Rate 82 06/29/20 21:37 Respiratory Rate 21 H 06/29/20 21:37 Blood Pressure 115/80 06/29/20 21:37 Pulse Oximetry 98 06/29/20 21:37 MDM - Chest Pain MDM Narrative: Medical decision making narrative: The patient initially arrived with a heart rate of 116. EKG showed a rate of 122 sinus tachycardia with occasional PVCs. A few minutes after she relaxed in bed her heart rate was 80 bpm sinus rhythm. Also her symptoms resolved at that time. She had 2 normal troponins and she did not have any ST wave changes. She follows Dr. Valladares for this and does have a history of supraventricular tachycardia. She has worn a Holter monitor before and he had recommended as an outpatient getting a pacer placed. I discussed with Dr. Valladares and he reiterated this. She is now asymptomatic and has not had an episode for 2 months. Her BNP is a little elevated which I discussed with him as well but she does not have signs of fluid overload. Her chest x-ray is normal. CT angiogram also normal. She does complain of mild right lower extremity swelling which she says is always more swollen than the left leg. I offered her a ultrasound of this leg and she declined. I also offered her admission to the hospital for monitoring of her heart rhythm and she declined. I discussed with her the symptoms could worsen and develop a tachycardia or bradycardia that could possibly lead to her and she still declined the admission. She will call Dr. Valladares's office tomorrow morning and arrange the Holter monitor and appointment. ER with worsening symptoms Lab Data: Labs: Lab Results 06/29/20 06/29/20 06/29/20 Range/Units 17:00 17:00 17:00 WBC 14.1 H (4.0-10.0) 10^3/ uL RBC 6.37 H (4.1-5.3) 10^6/u L Hgb 19.0 H (11.5-15.3) g/dL Hct 57.6 H (37.0-47.0) % MCV 90.4 (81-99) fL MCH 29.8 (28.0-34.0) pg MCHC 33.0 (30.0-36.0) g/dL RDW 12.4 (12.1-15.1) % Plt Count 341 (130-400) 10^3/c mm MPV 12.1 H (7.4-10.4) fL Neut % (Auto) 56.4 % Lymph % (Auto) 33.9 % [place] % (Auto) 6.0 % Eos % (Auto) 2.4 % Baso % (Auto) 0.8 % Neut # (Auto) 7.93 H (1.8-7.7) 10^3/u L Lymph # (Auto) 4.8 (0.8-4.8) 10^3/u L [place] # (Auto) 0.8 (0.2-0.9) 10^3/u L Eos # (Auto) 0.3 (0.0-0.8) 10^3/u L Baso # (Auto) 0.1 (0.0-0.1) 10^3/u L Nucleated RBC % (a uto) 0 % Nucleated RBCs # 0.0 /100WBC D-Dimer 1.12 H (0-0.59) ug/mIFE U Sodium 134 L (136-145) mmol/L Potassium 5.0 (3.5-5.1) mmol/L Chloride 93 L (98-107) mmol/L Carbon Dioxide 29 (22-29) mmol/L Anion Gap 17.0 (5-19) BUN 13 (6-20) mg/dL Creatinine 0.6 (0.5-0.9) mg/dL GFR Calculation 103.4 (90-130) mL/min Glucose 457 H (65-115) mg/dL Calculated Osmolal ity 298 H (285-295) mOsm/k g Calcium 10.1 (8.5-10.5) mg/dL Total Bilirubin 0.6 (0.15-1.2) mg/dL AST 8 (0-32) U/L ALT 11 (0-33) U/L Alkaline Phosphata se 140 H (35-105) IU/L Troponin T Baselin e (0-10) ng/L Troponin T 120 Min la posta (0-10) ng/L Delta Troponin T (0-10) ABS# NT-Pro-B Natriuret Pep 2383 H (0-125) pg/mL Total Protein 7.0 (6.6-8.7) g/dL Albumin 4.3 (3.5-5.2) g/dL Globulin 2.7 (1.3-4.6) g/dL Urine Color (Yellow) Urine Appearance (CLEAR) Urine pH (5-7) Ur Specific Gravit y (1.005-1.030) Urine Protein (Negative) Urine Glucose (UA) (Normal) Urine Ketones (Negative) Urine Blood (Negative) Urine Nitrate (Negative) Urine Bilirubin (Negative) Urine Urobilinogen (Negative) mg/dL Ur Leukocyte Charmaine ase (Negative) Urine RBC (0-2) /hpf Urine WBC (0-5) /hpf Ur Squamous Epith Cells (0-5) /hpf Amorphous Sediment Urine Bacteria (NONE) /hpf 06/29/20 06/29/20 06/29/20 Range/Units 17:00 17:15 18:52 WBC (4.0-10.0) 10^3/ uL RBC (4.1-5.3) 10^6/u L Hgb (11.5-15.3) g/dL Hct (37.0-47.0) % MCV (81-99) fL MCH (28.0-34.0) pg MCHC (30.0-36.0) g/dL RDW (12.1-15.1) % Plt Count (130-400) 10^3/c mm MPV (7.4-10.4) fL Neut % (Auto) % Lymph % (Auto) % [place] % (Auto) % Eos % (Auto) % Baso % (Auto) % Neut # (Auto) (1.8-7.7) 10^3/u L Lymph # (Auto) (0.8-4.8) 10^3/u L [place] # (Auto) (0.2-0.9) 10^3/u L Eos # (Auto) (0.0-0.8) 10^3/u L Baso # (Auto) (0.0-0.1) 10^3/u L Nucleated RBC % (a uto) % Nucleated RBCs # /100WBC D-Dimer (0-0.59) ug/mIFE U Sodium (136-145) mmol/L Potassium (3.5-5.1) mmol/L Chloride (98-107) mmol/L Carbon Dioxide (22-29) mmol/L Anion Gap (5-19) BUN (6-20) mg/dL Creatinine (0.5-0.9) mg/dL GFR Calculation (90-130) mL/min Glucose (65-115) mg/dL Calculated Osmolal ity (285-295) mOsm/k g Calcium (8.5-10.5) mg/dL Total Bilirubin (0.15-1.2) mg/dL AST (0-32) U/L ALT (0-33) U/L Alkaline Phosphata se (35-105) IU/L Troponin T Baselin e 8 (0-10) ng/L Troponin T 120 Min la posta 6.36 (0-10) ng/L Delta Troponin T -1.64 L (0-10) ABS# NT-Pro-B Natriuret Pep (0-125) pg/mL Total Protein (6.6-8.7) g/dL Albumin (3.5-5.2) g/dL Globulin (1.3-4.6) g/dL Urine Color Yellow (Yellow) Urine Appearance Clear (CLEAR) Urine pH 6 (5-7) Ur Specific Gravit y 1.015 (1.005-1.030) Urine Protein 2+ H (Negative) Urine Glucose (UA) 4+ H (Normal) Urine Ketones Negative (Negative) Urine Blood Neg (Negative) Urine Nitrate Negative (Negative) Urine Bilirubin Neg (Negative) Urine Urobilinogen Norm (Negative) mg/dL Ur Leukocyte Charmaine ase Negative (Negative) Urine RBC 0-4 H (0-2) /hpf Urine WBC 0-4 H (0-5) /hpf Ur Squamous Epith Cells 5-10 H (0-5) /hpf Amorphous Sediment Not Reportable Urine Bacteria Trace (NONE) /hpf Discharge Plan Discharge Patient Disposition: Home Clinical Impression: Heart palpitations Condition: Stable Prescriptions: No Action albuterol sulfate [ProAir HFA] 90 mcg/actuation HFA aerosol inhaler 2 puff INHALATION Q4H PRN (Reason: Shortness Of Breath Or Wheezing) 30 Days Qty: 6.7 RF: 2 (DME) pen needle, diabetic 33 gauge x 5/32 needle See Rx Instructions .ROUTE .MEDSUPPLY Qty: 100 RF: 5 albuterol sulfate 2.5 mg /3 mL (0.083 %) solution for nebulization 2.5 mg inhalation QID PRN (Reason: shortness of breath or wheezing) 30 Days Qty: 75 RF: 2 chlorpheniramine maleate 4 mg tablet 8 mg PO TID@ RF: 0 nitroglycerin 0.4 mg tablet, sublingual 0.4 mg sublingual Q5M PRN (Reason: chest pain) RF: 0 Trulicity 1.5 mg/0.5 mL pen injector 1.5 mg SUBCUT Q7D 30 Days Qty: 2.5 RF: 2 Xarelto 20 mg tablet 20 mg PO BEDTIME 30 Days Qty: 30 RF: 2 Tresiba FlexTouch U-100 100 unit/mL (3 mL) insulin pen 10 unit SUBCUT BEDTIME RF: 0 tizanidine 4 mg Tablet 4 mg PO PRN RF: 0 Anti-Diarrheal (loperamide) 2 mg Tablet 6 mg PO PRN RF: 0 Tylenol Extra Strength 500 mg Tablet 1,000 mg PO TID@ RF: 0 Charmaine-C 500 mg Tablet 1,000 mg PO DAILY@ RF: 0 omeprazole 20 mg Capsule,Delayed Release(Dr/Ec) 20 mg PO DAILY@07 RF: 0 valerian root 1,000 mg Capsule 1,060 mg PO DAILY@ RF: 0 Flexeril 5 mg Tablet 5 mg PO PRN RF: 0 Advair Diskus 250-50 mcg/dose blister with device 1 inh inhalation DAILY@ RF: 0 atorvastatin 20 mg tablet 20 mg PO DAILY@ RF: 0 lisinopril 20 mg tablet 20 mg PO DAILY@ RF: 0 glipizide 10 mg tablet 10 mg PO BID@ RF: 0 propafenone 300 mg tablet 300 mg PO TID@ RF: 0 doxycycline hyclate 100 mg tablet 100 mg PO BID@ RF: 0 diltiazem HCl 90 mg tablet 90 mg PO TID@ RF: 0 duloxetine 60 mg capsule,delayed release(DR/EC) 60 mg PO BID@ RF: 0 budesonide 1 mg/2 mL suspension for nebulization 1 mg inhalation BID PRN (Reason: unknown) RF: 0 Discharge Orders: Discharge ED (Routine); Ordered 06/29/20 Ordered By: Juan Alberto Melissa Referrals: Ángel Vance, [facility] [Primary Care Provider] - Patient Instructions: Palpitations (ED), Opioid Safety Activity Restrictions/Additional Instructions: You continue to have palpitations at home with fast heartbeat today which resolved shortly after arrival. Please call Dr. Valladares's office in the morning and he will likely order another Holter monitor and possibly schedule you for a pacemaker as you have had an episode of slow heart rate as well. I have offered you admission however you have declined and preferred discharge home. Please return to the ER at any time with heart rate below 50 or above 100. He also have a elevated BNP which indicates he may have some degree of heart failure. He can also help you with this. I have also offered to ultrasound your leg however you have declined that. These discuss it with your primary care physician as you could have a blood clot in there which is potentially life-threatening as well. Return to the ER with any worsening symptoms at any time. Coding Level of Care Code ED Typewriter Tester for Briana N[place]
== END 2020-06-29 21:38 | disposition home or self-care (01) ==
PROVIDERS: Emergency Provider Family Medicine; PCP Nurse Practitioner
DX: R00.2 Palpitations (principal); I48.91 Unspecified atrial fibrillation; I10 Essential (primary) hypertension; E11.9 Type 2 diabetes mellitus without complications; J44.9 Chronic obstructive pulmonary disease, unspecified; E78.5 Hyperlipidemia, unspecified; F17.210 Nicotine dependence, cigarettes, uncomplicated
CPT/HCPCS: 71045; 71275; 80053; 81001; 83880; 84484; 85025; 85378; 93005; 99284; Q9967

== ENCOUNTER 2020-07-06 09:36 | Outpatient (CLI) | payer MEDICAID, SELFPAY ==
--- NOTE | 2020-07-06 10:15 | USCV_ITS ---
[facility] Age: 55 Gender: F : 1965 Exam Date: 07/06/2020 09:49 Ordering Phys: Theodora Valladares MD ([email or web address]) Technologist: Rashmi Rodríguez [place] [facility] [place]: LT LEG PAIN AND SWELLING HISTORY: Lower extremity swelling. PROCEDURES: Venous duplex imaging was performed in only the left lower extremity. The following venous structures were evaluated: common femoral vein, profunda vein, proximal portion of the greater saphenous vein, superficial femoral vein, and the popliteal vein. In addition, the posterior tibial and peroneal trunk were evaluated. On the left side, the common femoral, superficial femoral, profunda femoral, popliteal, posterior tibial, greater saphenous veins, and the peroneal trunk were identified and interrogated in the standard fashion. These veins were found to be easily compressible with spontaneous blood flow. No evidence of insufficiency or thrombus noted. FINDINGS: Normal 2-D Doppler and augmentation and compressibility throughout the lower extremity venous structures. Additional imaging through the proximal calf veins also reveals no thrombus. Limited evaluation of the greater saphenous vein is patent with no thrombus.. CONCLUSIONS No evidence of DVT in the above-mentioned identifiable veins. Dr Theodora Valladares MD [facility] (Electronically Signed) Final Date: 07 July 2020 21:43 S
== END 2020-07-06 09:37 | disposition home or self-care (01) ==
LOC: RAD 09:38
PROVIDERS: PCP Nurse Practitioner; Visit Provider Internal Medicine Cardiovascular Disease
DX: M79.89 Other specified soft tissue disorders (principal); M79.605 Pain in left leg
CPT/HCPCS: 93971

== ENCOUNTER 2020-11-30 09:46 | Outpatient (CLI) | payer OTHER, SELFPAY ==
--- NOTE | 2020-11-30 10:01 | XR_ITS ---
WS: [id number] Lumbar spine, 3 views, 11/30/2020 Clinical Data: LOW BACK PAIN Comparison: None. Findings: No compression fractures or subluxation is seen. Disc narrowing is present at L3-L4 and L5-S1. There are anterior osteophytes at L3-L5. There is a slight levoscoliosis. The transverse processes and SI j oints are normal. There is calcification in the wall of the abdominal aorta but no aneurysm. There is a large amount of fecal material in the colon. XR/XR lumbar spine 2-3V* [id number] Impression: 1. Disc narrowing at L3-L4 and L5-S1. 2. Anterior osteophytes at L3-L5.
== END 2020-11-30 09:47 | disposition home or self-care (01) ==
PROVIDERS: PCP Nurse Practitioner; Visit Provider Dermatology
DX: M54.5 Low back pain (principal); M25.78 Osteophyte, vertebrae
CPT/HCPCS: 72100

== ENCOUNTER → 2020-12-26 15:35 | Outpatient (BNVA) | payer MEDICAID, SELFPAY | PROVIDERS: PCP Nurse Practitioner; Visit Provider Nurse Practitioner | DX: E11.65 Type 2 diabetes mellitus with hyperglycemia (principal); Z79.4 Long term (current) use of insulin; J44.9 Chronic obstructive pulmonary disease, unspecified; I48.0 Paroxysmal atrial fibrillation; M79.10 Myalgia, unspecified site; I10 Essential (primary) hypertension | CPT/HCPCS: 80053; 80061; 82607; 83036; 83721; 84443; 85025 ==

== ENCOUNTER → 2021-02-13 10:39 | Outpatient (BNVA) | payer MEDICAID, SELFPAY | PROVIDERS: PCP Nurse Practitioner; Visit Provider Nurse Practitioner Family | DX: K21.9 Gastro-esophageal reflux disease without esophagitis (principal); K92.2 Gastrointestinal hemorrhage, unspecified | CPT/HCPCS: 80053; 85025 ==

== ENCOUNTER 2021-02-26 07:02 | Outpatient (CLI) | payer MEDICAID, SELFPAY ==
--- NOTE | 2021-02-26 07:08 | USCV_ITS ---
[facility] Age: 55 Gender: F : 1965 Exam Date: 02/26/2021 07:18 Ordering Phys: Sagrario Alejandro MD Technologist: Carolyn Bacon Exam Location: [facility] Indication: AFIB BP: 130 / 80 HR: 75 Rhythm: Sinus Technical Quality: Adequate MEASUREMENTS (Male / Female) Normal Values 2D ECHO LV Diastolic Diameter PLAX 3.8 cm 4.2 - 5.9 / 3.9 - 5.3 cm LV Systolic Diameter PLAX 2.1 cm LV Chamber Size 4.0 cm IVS Diastolic Thickness 1.1 cm 0.6 - 1.0 / 0.6 - 0.9 cm IVS Systolic Thickness 1.3 cm LVPW Diastolic Thickness 1.5 cm 0.6 - 1.0 / 0.6 - 0.9 cm LVPW Systolic Thickness 1.7 cm RV Chamber Size 3.1 cm LVOT Diameter 2.0 cm LV Ejection Fraction 2D Teich 76.9 % LV Ejection Fraction MOD 2C 59.9 % LV Ejection Fraction 2C AL 59.8 % LA Diameter 3.4 cm LA Width 2.7 cm LA Height 3.4 cm RA Width 3.3 cm RA Height 3.5 cm Aorta at Sinotubular Diameter 2.4 cm M-MODE Aortic Annulus Diameter 3.1 cm LA Ao Ratio MM 1.1 DOPPLER AV Peak Velocity 149.0 cm/s LVOT Peak Velocity 108.0 cm/s AV Area Cont Eq vti 3.2 cm squared AV Area Cont Eq pk 2.4 cm squared MV Area PHT 3.5 cm squared Mitral E to A Ratio 0.9 MV E' Velocity 40.0 cm/s Mitral E to MV E' Ratio 6.6 Mitral E to LV E' Lateral Ratio 6.5 Mitral E to LV E' Septal Ratio 6.6 TR Peak Velocity 131.7 cm/s TR Peak Gradient 6.9 mmHg TR Mean Velocity 91.3 cm/s TR Mean Gradient 3.9 mmHg TR Velocity Time Integral 29.8 cm TV Peak E Velocity 46.0 cm/s Right Atrial Pressure 3.0 mmHg Pulmonary Artery Systolic Pressu 9.9 mmHg PV Peak Velocity 84.3 cm/s RV Acceleration Time 0.1 s RV Ejection Time 0.3 s RV AcT/ET 0.4 FINDINGS Left Ventricle Normal left ventricular size and systolic function, EF 63 %. No regional wall motion abnormalities. Mild concentric left ventricular hypertrophy.Grade I/IV diastolic dysfunction (abnormal relaxation filling pattern), normal to mildly elevated filling pressures. Right Ventricle The right ventricle is normal in size and function. Right Atrium The right atrium is normal in size. Left Atrium The left atrium is normal in size. There is bulging of the interatrial septum the right Mitral Valve No gross abnormalities noted Aortic Valve Trace aortic valve regurgitation. Tricuspid Valve Trace tricuspid valve regurgitation. Pulmonic Valve Pulmonic valve not well visualized. Pericardium Normal pericardium without effusion. Aorta Normal ascending aorta dimension. CONCLUSIONS Normal left ventricular size and systolic function, EF 63 %. No regional wall motion abnormalities. Mild concentric left ventricular hypertrophy.Grade I/IV diastolic dysfunction (abnormal relaxation filling pattern), normal to mildly elevated filling pressures. Trace aortic valve regurgitation. Small atrial septal aneurysm Trace tricuspid valve regurgitation. There is no pericardial effusion. There are no intracardiac masses. Compared to the study from 10/12/2016, there may not be a significant change Dr Theodora Valladares MD [facility] (Electronically Signed) Final Date: 26 February 2021 19:13 S
== END 2021-02-26 07:03 | disposition home or self-care (01) ==
PROVIDERS: PCP Nurse Practitioner
DX: I48.91 Unspecified atrial fibrillation (principal); I08.2 Rheumatic disorders of both aortic and tricuspid valves; I72.8 Aneurysm of other specified arteries
CPT/HCPCS: 93306

== ENCOUNTER → 2021-03-08 16:36 | Outpatient (BNVA) | payer MEDICAID, SELFPAY | PROVIDERS: PCP Nurse Practitioner; Visit Provider Nurse Practitioner Family | DX: L02.211 Cutaneous abscess of abdominal wall (principal); R11.10 Vomiting, unspecified; K92.1 Melena | CPT/HCPCS: 87070 ==

== ENCOUNTER 2021-03-09 13:41 | Outpatient (CLI) | payer MEDICAID, SELFPAY ==
--- NOTE | 2021-03-09 13:47 | CT_ITS ---
WS: [id number] CT ABDOMEN AND PELVIS WITH CONTRAST HISTORY: L02.211 - Cutaneous abscess of abdominal wall TECHNIQUE: Imaging performed of the abdomen and pelvis with IV contrast. Single phase imaging of the abdomen. Coronal and sagittal reformats are submitted. All CT scans at [facility] use at [facility] [facility] one of these dose optimization techniques: automated exposure control; mA and/or kV adjustment per patient size (includes targeted exams where dose is matched to clinical indication); or iterative re construction. IV CONTRAST: Omnipaque 300; 95 mL IV. Oral contrast: Yes. DLP: 1885.3 mGy.cm COMPARISON: None available. Lower thorax: Lung bases are clear. Heart is normal size. No hiatal hernia. Liver/biliary system: Mildly enlarged liver with mild hepatic steatosis. No mass or bile duct dilatat ion. Normal portal vein enhancement. Gallbladder: Normally distended gallbladder. Increased density in the dependent portion of the gallbl adder most indicative for small stones. No adjacent inflammation. Pancreas: Normal size pancreas and pancreatic duct. No adjacent inflammation. Spleen: Normal size spleen with granulomata. Adrenal glands: Normal. Right kidney: Normal size kidney with mild anterior rotation. No obstruction. Left kidney: Normal size kidney. There are several scattered hypodensities within the mid and lower k idney which are likely cysts. No solid mass identified. No obstruction. Aorta: Mild atherosclerosis with no aneurysm. Lymphadenopathy: None. Free fluid: None. GI tract: Normal appendix. There is no GI tract obstruction. No wall thickening. No significant diver ticular disease. Abdominal wall: Acute inflammatory process with enhancement in the LEFT lateral abdominal wall. Foci of air in the inflammatory collection. There is no well circumscribed fluid collection. The soft tiss ue enhancement measures 4.1 x 1.7 cm. As per history this was recently debrided. Pelvis: Prior hysterectomy. No masses or fluid. Bones: Unremarkable. CT/CT abdomen pelvis w con* [id number] IMPRESSION: 1. Focal inflammatory soft tissue process in the LEFT lateral abdominal wall m easures 4.1 x 1.7 cm. There is a foci of central air but no well formed abscess . As per history there was recent debridement of this nodule. These changes are probably post procedure. There is still significant inflammation at this site. 2. Suspect cholelithiasis. Acute cholecystitis. 3. No GI tract obstruction.
[2021-03-09] MEDS: iohexol 300 mg/mL 50 mL Btl PO (15:29)
[2021-03-09] MEDS: iohexol 300 mg/mL 100 mL Btl IV (15:50)
== END 2021-03-09 13:42 | disposition home or self-care (01) ==
LOC: RAD 13:45
PROVIDERS: PCP Nurse Practitioner; Visit Provider Nurse Practitioner Family
DX: L02.211 Cutaneous abscess of abdominal wall (principal); K81.9 Cholecystitis, unspecified
CPT/HCPCS: 74177

== ENCOUNTER → 2021-03-13 08:37 | Outpatient (BNVA) | payer MEDICAID, SELFPAY | PROVIDERS: PCP Nurse Practitioner; Visit Provider Nurse Practitioner Family | DX: R19.7 Diarrhea, unspecified (principal); K92.2 Gastrointestinal hemorrhage, unspecified | CPT/HCPCS: 82274; 87506 ==

== ENCOUNTER → 2021-03-28 10:04 | Outpatient (BNVA) | payer MEDICAID, SELFPAY | PROVIDERS: PCP Nurse Practitioner; Visit Provider Nurse Practitioner Family | DX: E11.621 Type 2 diabetes mellitus with foot ulcer (principal); L97.509 Non-pressure chronic ulcer of other part of unspecified foot with unspecified severity; M19.071 Primary osteoarthritis, right ankle and foot | CPT/HCPCS: 73630; 87070; 87075; 87077; 87184; 87205 ==

== ENCOUNTER → 2021-04-02 09:21 | Outpatient (BNVA) | payer MEDICAID, SELFPAY | PROVIDERS: PCP Nurse Practitioner; Visit Provider Nurse Practitioner | DX: S91.309A Unspecified open wound, unspecified foot, initial encounter (principal); E11.65 Type 2 diabetes mellitus with hyperglycemia; Z79.4 Long term (current) use of insulin; I10 Essential (primary) hypertension; J44.9 Chronic obstructive pulmonary disease, unspecified; E78.5 Hyperlipidemia, unspecified; E11.42 Type 2 diabetes mellitus with diabetic polyneuropathy; I48.0 Paroxysmal atrial fibrillation; K21.9 Gastro-esophageal reflux disease without esophagitis; X58.XXXA Exposure to other specified factors, initial encounter | CPT/HCPCS: 80053; 80061; 81000; 83036; 83721; 84443; 85025 ==

== ENCOUNTER 2021-04-09 08:17 | Outpatient (CLI) | payer MEDICAID, SELFPAY | END 2021-04-09 08:18 | disposition home or self-care (01) | LOC: WOUND 08:18 | PROVIDERS: PCP Nurse Practitioner; Visit Provider Nurse Practitioner Family | DX: I96 Gangrene, not elsewhere classified (principal); E11.621 Type 2 diabetes mellitus with foot ulcer; L97.513 Non-pressure chronic ulcer of other part of right foot with necrosis of muscle; F17.210 Nicotine dependence, cigarettes, uncomplicated; J44.9 Chronic obstructive pulmonary disease, unspecified | CPT/HCPCS: 11042; 99213 ==

== ENCOUNTER 2021-04-16 08:55 | Outpatient (CLI) | payer MEDICAID, SELFPAY | END 2021-04-16 08:56 | disposition home or self-care (01) | LOC: WOUND 08:55 | PROVIDERS: PCP Nurse Practitioner; Visit Provider Thoracic Surgery (Cardiothoracic Vascular Surgery) | DX: I96 Gangrene, not elsewhere classified (principal); E11.621 Type 2 diabetes mellitus with foot ulcer; L97.512 Non-pressure chronic ulcer of other part of right foot with fat layer exposed; F17.210 Nicotine dependence, cigarettes, uncomplicated; J44.9 Chronic obstructive pulmonary disease, unspecified | CPT/HCPCS: 11042; 87070; 87077; 87176; 87186; 87205 ==

== ENCOUNTER 2021-04-19 15:14 | Outpatient (CLI) | payer MEDICAID, SELFPAY | END 2021-04-19 15:15 | disposition home or self-care (01) | LOC: SPT 15:14 | PROVIDERS: PCP Nurse Practitioner; Visit Provider Nurse Practitioner Family | DX: R26.89 Other abnormalities of gait and mobility (principal) | CPT/HCPCS: 97760 ==

== ENCOUNTER 2021-04-23 09:07 | Outpatient (CLI) | payer MEDICAID, SELFPAY | END 2021-04-23 09:08 | disposition home or self-care (01) | LOC: WOUND 09:08 | PROVIDERS: PCP Nurse Practitioner; Visit Provider Thoracic Surgery (Cardiothoracic Vascular Surgery) | DX: I96 Gangrene, not elsewhere classified (principal); E11.621 Type 2 diabetes mellitus with foot ulcer; L97.516 Non-pressure chronic ulcer of other part of right foot with bone involvement without evidence of necrosis; F17.210 Nicotine dependence, cigarettes, uncomplicated; J44.9 Chronic obstructive pulmonary disease, unspecified | CPT/HCPCS: 10060; 11042; 87070; 87075; A6446 ==

== ENCOUNTER 2021-04-30 09:13 | Outpatient (CLI) | payer MEDICAID, SELFPAY | END 2021-04-30 09:14 | disposition home or self-care (01) | LOC: WOUND 09:14 | PROVIDERS: PCP Nurse Practitioner; Visit Provider Thoracic Surgery (Cardiothoracic Vascular Surgery) | DX: I96 Gangrene, not elsewhere classified (principal); E11.621 Type 2 diabetes mellitus with foot ulcer; L97.516 Non-pressure chronic ulcer of other part of right foot with bone involvement without evidence of necrosis; F17.210 Nicotine dependence, cigarettes, uncomplicated; J44.9 Chronic obstructive pulmonary disease, unspecified | CPT/HCPCS: 11042; A6446 ==

== ENCOUNTER 2021-05-01 09:17 | Outpatient (CLI) | payer MEDICAID, SELFPAY ==
--- NOTE | 2021-05-01 09:42 | ECG_ITS ---
[facility] Test Date: 2021-05-01 Pat Name: Soni Head Department: Room: Gender: Female Taper Operator: : 1965 Requested By: Erik Tillman Order Number: [id number] Eric MD: Santo Hinojosa M.D. Measurements Intervals Bailey Rate: 87 P: 71 NH: 179 QRS: 20 QRSD: 106 T: 52 QT: 370 QTc: 446 Interpretive Statements SINUS RHYTHM Compared to ECG 06/29/2020 18:40:34 Myocardial infarct finding no longer present Electronically Signed On 05-01-2021 20:56:36 HEEL BREASTER by Santo Hinojosa M.D. [id number]
--- NOTE | 2021-05-01 09:48 | XR_ITS ---
WS: [id number] CHEST 2 VIEWS HISTORY: ENCOUNTER SCREENING FOR RESPIRATORY DISORDERS COMPARISON: 06/29/2020 Lungs: Mildly hyperinflated lungs. Mild thickening of the interstitium. No dense area of consolidatio n or pneumonia. Normal vasculature. Benign granuloma LEFT apex. Cardiac size: Normal. Mediastinum/Aorta: Normal mediastinum. Bones: Normal. Surgical sutures are noted within the RIGHT axilla. XR/XR chest 2V* 08120 IMPRESSION: Chronic emphysema. No pneumonia.
[2021-05-01 10:30] LABS: Basophils # 0.1 10^3/uL (0.0-0.1); Basophils % 0.6 %; Eosinophils # 0.4 10^3/uL (0.0-0.8); Hematocrit 46.5 % (37.0-47.0); Hemoglobin 15.1 g/dL (11.5-15.3); Lymphocytes # 3.9 10^3/uL (0.8-4.8); Lymphocytes % 27.3 %; Mean Corpuscular HGB Conc 32.5 g/dL (30.0-36.0); Mean Corpuscular Hemoglobin 28.9 pg (28.0-34.0); Mean Corpuscular Volume 88.9 fl (81-99); Monocytes # 0.6 10^3/uL (0.2-0.9); Monocytes % 4.4 %; Neutrophils # 9.12 10^3/uL (1.8-7.7); Nucleated Red Blood Cells % 0 %; Platelet Count 458 10^3/cmm (130-400); Red Blood Count 5.23 10^6/uL (4.1-5.3); Red Cell Distribution Width 12.2 % (12.1-15.1); White Blood Count 14.3 10^3/uL (4.0-10.0)
[2021-05-01 10:42] LABS: Erythrocyte Sedimentation Rate 11 mm/hr (0-15)
[2021-05-01 10:51] LABS: Estmated Average Glucose 278; Hemoglobin A1C 11.3 % (4.0-6.0)
[2021-05-01 11:24] LABS: Alanine Aminotransferase 9 U/L (0-33); Albumin Level 3.5 g/dL (3.5-5.2); Alkaline Phosphatase 140 IU/L (35-105); Blood Urea Nitrogen 7 mg/dL (6-20); C Reactive Protein 25.8 mg/L (0.0-4.9); Calcium 8.6 mg/dL (8.5-10.5); Carbon Dioxide 28 mmol/L (22-29); Chloride 98 mmol/L (98-107); Globulin 4.1 g/dL (1.3-4.6); Glomerular Filtration Rate 164.5 mL/min (90-130); Glucose 223 mg/dL (65-115); Osmolality Calculated 287 mOsm/kg (285-295); Sodium 136 mmol/L (136-145); Total Bilirubin 0.2 mg/dL (0.15-1.2); Total Protein 7.6 g/dL (6.6-8.7)
[2021-05-01 11:28] LABS: Anion Gap 14.3 (5-19)
[2021-05-01 11:29] LABS: Aspartate Amino Transferase 12 U/L (0-32); Potassium 4.3 mmol/L (3.5-5.1)
== END 2021-05-01 09:18 | disposition home or self-care (01) ==
LOC: RT 09:25
PROVIDERS: PCP Nurse Practitioner; Visit Provider Thoracic Surgery (Cardiothoracic Vascular Surgery)
DX: Z13.83 Encounter for screening for respiratory disorder NEC (principal); J43.9 Emphysema, unspecified
CPT/HCPCS: 36415; 71046; 80053; 83036; 84134; 85025; 85651; 86140; 93005

== ENCOUNTER → 2021-05-04 09:14 | Outpatient (BNVA) | payer MEDICAID, SELFPAY | PROVIDERS: PCP Nurse Practitioner; Visit Provider Surgery | DX: Z11.52 Encounter for screening for COVID-19 (principal); Z20.822 Contact with and (suspected) exposure to COVID-19; Z01.812 Encounter for preprocedural laboratory examination | CPT/HCPCS: 87635 ==

== ENCOUNTER 2021-05-07 08:50 | Outpatient (CLI) | payer MEDICAID, SELFPAY | END 2021-05-07 08:51 | disposition home or self-care (01) | LOC: WOUND 08:51 | PROVIDERS: PCP Nurse Practitioner; Visit Provider Thoracic Surgery (Cardiothoracic Vascular Surgery) | DX: I96 Gangrene, not elsewhere classified (principal); E11.621 Type 2 diabetes mellitus with foot ulcer; L97.516 Non-pressure chronic ulcer of other part of right foot with bone involvement without evidence of necrosis; F17.210 Nicotine dependence, cigarettes, uncomplicated; J44.9 Chronic obstructive pulmonary disease, unspecified | CPT/HCPCS: 11042 ==

== ENCOUNTER 2021-05-08 08:03 | Day surgery (SDC) | payer MEDICAID, SELFPAY ==
[2021-05-07 13:57] VITALS: BMI 37.3
[2021-05-08 08:14] VITALS: BP 155/83; PULSE 85; RESP 16; TEMP 36.5; O2SAT 99
[2021-05-08 08:34] LABS: Glucose Point of Care 359 mg/dL (70-110)
--- NOTE | 2021-05-08 08:40 | ANES.PREANE2 ---
Pre-Anesthetic Assessment Height/Weight: Height 1.7 m Weight 107.955 kg Temp Pulse Resp BP Pulse Ox 97.7 F 85 16 155/83 99 05/08/21 08:14 05/08/21 08:14 05/08/21 08:14 05/08/21 08:14 05/08/21 08:14 Preop Diagnosis: Nonhealing right great toe Operation Date: 05/08/21 15:20 Proposed Procedures p Amputation [id number](Right) - Erik Tillman MD Familial anesthetic complications: None Last intake: Intake Last Liquid Date 05/07/21 Last Liquid Time 22:30 Last Solid Date 05/07/21 Last Solid Time 19:30 Social Tobacco and No alcohol Exam alert, oriented x 3 and regular rate & rhythm Airway Submandibular: within normal limits Cervical ROM: within normal limits Mallampati: Class II Dentition: false Pulmonary Chronic Obstructive Pulmonary Disease CV/HEM Atrial Fibrillation, Arrythmia (SVT), Coronary Artery Disease and Hypertension GI Gastroesophageal Reflux Disease Metabolic Diabetes Mellitus and Hyperlipidemia Anesthetic Plan ASA status: 3 Anesthesia: Choice Risk of > 500 ml blood loss (7ml/kg in children): No Medications/Allergies Home Medications Medication Instructions Recorded Confirmed Last Taken Type albuterol sulfate 2.5 mg (3 mL) INHALATION QID PRN 02/25/20 05/07/21 Unknown Rx 30 Days #75 ml nitroglycerin 0.4 mg sublingual 0.4 mg SUBLINGUAL Q5M PRN tab 04/25/20 05/07/21 Unknown History tablet acetaminophen 500 mg tablet 1,000 mg PO TID@06/29/20 05/08/21 05/08/21 History (Tylenol Extra Strength) ascorbate calcium (vitamin C) 500 1,000 mg PO DAILY@06/29/20 05/08/21 05/07/21 History mg tablet loperamide 2 mg tablet 6 mg PO PRN PRN 06/29/20 05/08/21 Unknown History (Anti-Diarrheal (loperamide)) valerian root 1,000 mg capsule 1,060 mg PO DAILY@06/29/20 05/08/21 05/07/21 History blood sugar diagnostic (PersonSpotuch #100 ea 12/26/20 04/20/21 Unknown Rx Ultra Test) blood-glucose meter (Idea2 #1 ea 12/26/20 04/20/21 Unknown Rx Ultra2 Meter) lancets 33 gauge (OneTouch Delica #100 ea 12/26/20 04/20/21 Unknown Rx Plus Lancet) pantoprazole 40 mg tablet,delayed 40 mg PO DAILY #30 tab 02/13/21 05/08/21 05/07/21 Rx release (Protonix) flecainide 100 mg tablet 100 mg PO Q12H #180 tab 02/27/21 05/08/21 05/07/21 Rx albuterol sulfate 90 mcg/actuation 2 puff INHALATION Q4H PRN 30 Days 04/02/21 05/07/21 Unknown Rx aerosol inhaler (ProAir HFA) #6.7 gm atorvastatin 20 mg tablet 20 mg PO DAILY@23 #30 tab 04/02/21 05/08/21 05/07/21 Rx duloxetine 60 mg capsule,delayed 60 mg PO BID #60 cap 04/02/21 05/08/21 05/07/21 Rx release furosemide 20 mg tablet (Lasix) 20 mg PO QAM #30 tab 04/02/21 05/08/21 05/08/21 Rx liraglutide 0.6 mg/0.1 mL (18 mg/3 0.6 mg (0.1 mL) SUBCUT DAILY #9 ml 04/02/21 05/08/21 05/07/21 Rx mL) subcutaneous pen injector (Victoza 3-Macario) lisinopril 20 mg tablet 20 mg PO DAILY #30 tab 04/02/21 05/08/21 05/07/21 Rx rivaroxaban 20 mg tablet (Xarelto) 20 mg PO BEDTIME 30 Days #30 tab 04/02/21 05/07/21 05/06/21 Rx insulin aspart U-100 100 unit/mL See Rx Instructions SUBCUT TID #15 04/06/21 05/08/21 05/07/21 Rx (3 mL) subcutaneous pen (Novolog ml Flexpen U-100 Insulin aspart) pen needle, diabetic 33 gauge x #200 ea 04/06/21 04/20/21 Unknown Rx lactobacillus rhamnosus R0011 20 See Rx Instructions PO .2 times 04/09/21 05/08/21 05/08/21 Rx billion cell capsule (Probiotic day #60 cap [facility]) diltiazem HCl 120 mg 120 mg PO DAILY 05/07/21 05/08/21 05/07/21 History capsule,extended release 24 hr fluticasone 250 mcg-salmeterol 50 1 inh INHALATION BEDTIME 05/07/21 05/07/21 Unknown History mcg/dose blistr powdr for inhalation (Advair Diskus) glyburide 5 mg tablet 10 mg PO BID 05/07/21 05/08/21 05/07/21 History insulin detemir U-100 100 unit/mL 50 unit SUBCUT BEDTIME 05/07/21 05/08/21 05/07/21 History (3 mL) subcutaneous pen (Levemir FlexTouch U-100 Insulin) tizanidine 2 mg tablet 2 mg PO BEDTIME PRN 05/07/21 05/08/21 05/07/21 History Allergies Allergy/AdvReac Type Severity Reaction Status Date / Time azithromycin [From Zithromax] Allergy Unknown Unknown Verified 05/07/21 13:42 sulfamethoxazole Allergy Unknown Unknown Verified 05/07/21 13:42 [From Bactrim] trimethoprim [From Bactrim] Allergy Unknown Unknown Verified 05/07/21 13:42 [facility] Anesthesia Medical History Asthma Atrial fibrillation Benign hypertension Breast cancer, left breast Breast cancer, right COPD (chronic obstructive pulmonary disease) COPD exacerbation Diabetes mellitus with hyperglycemia, with long-term current use of insulin Dyslipidemia Gastroesophageal reflux disease SVT (supraventricular tachycardia) Ulcer of foot, chronic Surgical History H/O bilateral mastectomy History of appendectomy History of hysterectomy Status post left breast lumpectomy Status post right breast lumpectomy Family History Father CAD (coronary artery disease) CHF (congestive heart failure) Hyperlipidemia Hypertension Lung disease Stroke Other Diabetes Denies family history of Clotting disorder Dementia Psychiatric illness Chronic kidney disease (CKD) Suicide Anesthesia complication Bleeding disorder Family history of premature coronary artery disease Cancer Social History Smoking and tobacco status: current every day smoker cigarettes Packs smoked per day: 2 Second hand smoke exposure: Yes Smoking risk assessment/counseling performed?: Yes Alcohol intake: never Desire information about alcohol rehabilitation?: No Counseling given: No Desire information about substance/drug rehabilitation?: No Counseling given: No Adopted: No Caregiver/support person: No Lives independently: Yes Household members: family Housing: House Marital status: Single Number of children: 1 service: No Current occupational status: employed History of recent travel: No Current gender identity: Female Data Anesthesia Cardiac Studies: Echocardiogram 02/26/21 Sestamibi Stress Test (Cardiology) 11/24/19 Cardiac Event Monitor 07/21/20 Holter Monitor 08/20/19
--- NOTE | 2021-05-08 08:46 | P.HP_ITS ---
Providers/Chief Complaint Admitting Physician: Dr. Tillman Primary Care Provider: Ángel Vance, [employer] Chief Complaint: E11.621 Nonhealing diabetic ulceration of right great toe History of Present Illness Soni Head is a 56 year old female with a long history of poorly controlled diabetes mellitus and a long history of tobacco use, who has been cared for in wound care services since April 09 of this year after presenting with a right great toe ulcer which been present for about 2 weeks prior to presentation. She had originally been placed on Augmentin by her primary care provider Ms. Ángel Vance. Last hemoglobin A1c was greater than 13 and she is recent been placed on NovoLog insulin. She initially underwent debridement of her ulcer initial presentation with drainage of a deep abscess, along with daily wound care management and also was placed on Zyvox. Unfortunately, the wound is continued to worsen with much destruction of the distal aspect of the soft tissue of the great toe. She has palpable pedal pulses. Bone scan was originally scheduled for a high index of suspicion for osteomyelitis, though this appointment had to be simply rescheduled. With continued worsening of her right great toe, I feel amputation is in order for preservation of the remainder of the foot, and she is eager to proceed. Review of Systems Const: Denies: fever(s), chills, change in appetite, change in weight, fatigue or night sweats Eyes: Denies: change in vision or blurry vision ENMT: Denies: odynophagia or hoarseness Card: Denies: chest pain, palpitations, irregular heart rhythm or edema Resp: Denies: dyspnea or productive cough GI: Denies: abdominal pain, nausea, vomiting, dysphagia, heartburn or change in bowel habits : Denies: dysuria, urinary frequency, urinary urgency or urinary hesitancy Musc: Denies: extremity pain or extremity swelling Skin/Breast: Denies: rash Neuro: Denies: headache(s), numbness in extremities, weakness in extremities or sensory changes Psych: Denies: anxiety, depression or change in appetite Endo: Denies: polyuria, polydipsia or cold intolerance Tio/Lymph: Denies: easy bruising, easy bleeding, petechiae or enlarged lymph nodes Medications/Allergies Home Medications Medication Instructions Recorded Confirmed Last Taken Type albuterol sulfate 2.5 mg (3 mL) INHALATION QID PRN 02/25/20 05/07/21 Unknown Rx 30 Days #75 ml nitroglycerin 0.4 mg sublingual 0.4 mg SUBLINGUAL Q5M PRN tab 04/25/20 05/07/21 Unknown History tablet acetaminophen 500 mg tablet 1,000 mg PO TID@06/29/20 05/08/21 05/08/21 History (Tylenol Extra Strength) ascorbate calcium (vitamin C) 500 1,000 mg PO DAILY@06/29/20 05/08/21 05/07/21 History mg tablet loperamide 2 mg tablet 6 mg PO PRN PRN 06/29/20 05/08/21 Unknown History (Anti-Diarrheal (loperamide)) valerian root 1,000 mg capsule 1,060 mg PO DAILY@06/29/20 05/08/21 05/07/21 History blood sugar diagnostic (FOCUS RESEARCHTouch #100 ea 12/26/20 04/20/21 Unknown Rx Ultra Test) blood-glucose meter (OneTouch #1 ea 12/26/20 04/20/21 Unknown Rx Ultra2 Meter) lancets 33 gauge ([facility] 12/26/20 04/20/21 Unknown Rx Plus Lancet) pantoprazole 40 mg tablet,delayed 40 mg PO DAILY #30 tab 02/13/21 05/08/21 05/07/21 Rx release (Protonix) flecainide 100 mg tablet 100 mg PO Q12H #180 tab 02/27/21 05/08/21 05/07/21 Rx albuterol sulfate 90 mcg/actuation 2 puff INHALATION Q4H PRN 30 Days 04/02/21 05/07/21 Unknown Rx aerosol inhaler (ProAir HFA) #6.7 gm atorvastatin 20 mg tablet 20 mg PO DAILY@23 #30 tab 04/02/21 05/08/21 05/07/21 Rx duloxetine 60 mg capsule,delayed 60 mg PO BID #60 cap 04/02/21 05/08/21 05/07/21 Rx release furosemide 20 mg tablet (Lasix) 20 mg PO QAM #30 tab 04/02/21 05/08/21 05/08/21 Rx liraglutide 0.6 mg/0.1 mL (18 mg/3 0.6 mg (0.1 mL) SUBCUT DAILY #9 ml 04/02/21 05/08/21 05/07/21 Rx mL) subcutaneous pen injector (Victoza 3-Macario) lisinopril 20 mg tablet 20 mg PO DAILY #30 tab 04/02/21 05/08/21 05/07/21 Rx rivaroxaban 20 mg tablet (Xarelto) 20 mg PO BEDTIME 30 Days #30 tab 04/02/21 05/07/21 05/06/21 Rx insulin aspart U-100 100 unit/mL See Rx Instructions SUBCUT TID #15 04/06/21 05/08/21 05/07/21 Rx (3 mL) subcutaneous pen (Novolog ml Flexpen U-100 Insulin aspart) pen needle, diabetic 33 gauge x #200 ea 04/06/21 04/20/21 Unknown Rx lactobacillus rhamnosus R0011 20 See Rx Instructions PO .2 times 04/09/21 05/08/21 05/08/21 Rx billion cell capsule (Probiotic day #60 cap [facility]) diltiazem HCl 120 mg 120 mg PO DAILY 05/07/21 05/08/21 05/07/21 History capsule,extended release 24 hr fluticasone 250 mcg-salmeterol 50 1 inh INHALATION BEDTIME 05/07/21 05/07/21 Unknown History mcg/dose blistr powdr for inhalation (Advair Diskus) glyburide 5 mg tablet 10 mg PO BID 05/07/21 05/08/21 05/07/21 History insulin detemir U-100 100 unit/mL 50 unit SUBCUT BEDTIME 05/07/21 05/08/21 05/07/21 History (3 mL) subcutaneous pen (Levemir FlexTouch U-100 Insulin) tizanidine 2 mg tablet 2 mg PO BEDTIME PRN 05/07/21 05/08/21 05/07/21 History Allergies Allergy/AdvReac Type Severity Reaction Status Date / Time azithromycin [From Zithromax] Allergy Unknown Unknown Verified 05/07/21 13:42 sulfamethoxazole Allergy Unknown Unknown Verified 05/07/21 13:42 [From Bactrim] trimethoprim [From Bactrim] Allergy Unknown Unknown Verified 05/07/21 13:42 PFSH PFSH: Medical History Asthma Atrial fibrillation Benign hypertension Breast cancer, left breast Breast cancer, right COPD (chronic obstructive pulmonary disease) COPD exacerbation Diabetes mellitus with hyperglycemia, with long-term current use of insulin Dyslipidemia Gastroesophageal reflux disease SVT (supraventricular tachycardia) Ulcer of foot, chronic Surgical History H/O bilateral mastectomy History of appendectomy History of hysterectomy Status post left breast lumpectomy Status post right breast lumpectomy Family History Father CAD (coronary artery disease) CHF (congestive heart failure) Hyperlipidemia Hypertension Lung disease Stroke Other Diabetes Denies family history of Clotting disorder Dementia Psychiatric illness Chronic kidney disease (CKD) Suicide Anesthesia complication Bleeding disorder Family history of premature coronary artery disease Cancer Social History Smoking and tobacco status: current every day smoker cigarettes Packs smoked per day: 2 Second hand smoke exposure: Yes Smoking risk assessment/counseling performed?: Yes Alcohol intake: never Desire information about alcohol rehabilitation?: No Counseling given: No Desire information about substance/drug rehabilitation?: No Counseling given: No Adopted: No Caregiver/support person: No Lives independently: Yes Household members: family Housing: House Marital status: Single Number of children: 1 service: No Current occupational status: employed History of recent travel: No Current gender identity: Female Dietary Habits: Caffeine: No Vital Signs Vitals Signs: Last Vital Signs Temp 97.7 F 05/08/21 08:14 Pulse 85 05/08/21 08:14 Resp 16 05/08/21 08:14 BP 155/83 05/08/21 08:14 Pulse Ox 99 05/08/21 08:14 Weight: Weight last 48 hrs Weight 238 lb Weight 238 lb Physical Exam HENMT: COMMON NORMALS: normocephalic, atraumatic, hearing grossly normal bilaterally, external ears normal and Normal external nose present Neck/C-Spine: COMMON NORMALS: full ROM, no lymphadenopathy, supple and No carotid bruits Resp: COMMON NORMALS: normal respiratory effort, No retractions, No use of accessory muscles and clear to auscultation bilaterally Cardio: COMMON NORMALS: regular rate, regular rhythm, S1 normal heart sound present and No murmurs present (Cardio) GI: COMMON NORMALS: Normal to inspection, nondistended, normoactive bowel sounds present Extremity: NARRATIVE EXTREMITY EXAM: Pretibial edema. There are ninfa ulcerations of the right great toe which have worsened since initial presentation in early March. Clinically, this does appear to be involvement of the deep fascia and probable bone. She has palpable dorsalis pedis pulse and posterior tibial pulse. Neuro: OTHER: Does have some hypoesthesia of the feet consistent with diabetic neuropathy. No Charcot deformity. A&P Assessment and plan (1) Open wound of foot: Healing and worsening ulcerations and tissue loss of the right great toe consistent with ongoing deep infection. We will plan for right great toe amputation today and primary closure if indicated. If not, we will plan for wound VAC placement to the open wound. Rationale for recommendation was carefully discussed with Ms. Head and she is eager to proceed. Appropriate consents have been provided for review and signature. Status: Acute Coding Level of Care Code Acute Community Specialist for [facility] Ondina Diagnoses Open wound of foot S91.309A
[2021-05-08] MEDS: sodium chloride 0.9% 1,000 ML 30 ML IV (08:47)
[2021-05-08] MEDS: vancomycin 1,500 MG/300 ML PIGGYBACK 200 MG IV (08:47)
--- NOTE | 2021-05-08 08:52 | PC.NURSE ---
Dr. Medel informed of patients blood sugar.
[2021-05-08] MEDS: vancomycin 1,000 MG SDV 1000 MG IRRIGATION (09:40)
--- NOTE | 2021-05-08 10:16 | PM.OP ---
Operative Report Date of procedure: May 08, 2021 Pre-op diagnosis: Preop Diagnosis Nonhealing right great toe Procedure done: Right great toe amputation with primary closure Specimens removed/disposition: Right great toe Surgeon: Erik Tillman Complications: None Brief History: Ms. Head is a 56-year-old diabetic female with nonhealing right great toe ulcers which have worsened and clinically appear to represent deep infection versus osteomyelitis. Because of continued nonhealing, amputation has been recommended. Details the risk of the procedure were frankly discussed. Appropriate consents have been reviewed and signed. Procedure: Ms. Head was taken the operating room theater and carefully position on the OR table. She underwent IV conscious sedation with anesthesia monitoring. Her entire right foot and lower leg were sterilely prepped and draped. Related to severe diabetic neuropathy, she is almost completely insensate in the foot. A circumferential incision was made at the base of the right great toe with a #15 scalpel blade and carried down through subtendinous tissues down to the associated tendons and then continued proximally to the metatarsal phalangeal joint space. Transection was then completed in the space and the toe was removed. Associated extensor and flexor tendons were placed on tension and then divided. Next, utilizing a TPS saw, the cartilaginous surface of the first metatarsal was transected and then beveled dorsally. Wound was irrigated with antibiotic solution. Hemostasis was confirmed and cautery was utilized judiciously as needed. Some sharp undermining was performed dorsally to allow for further movement of the soft tissues. Next, 2-0 Vicryl suture was utilized to reapproximate the deep tissues with good closure. Skin was then reapproximated utilizing interrupted 3-0 nylon suture in a mattress fashion. Xeroform gauze was then applied over the incision line followed by padding and a sterile dressing. Ms. Head tolerated procedure well and was awakened from anesthesia and was comfortable throughout the case. He was then transported back to the outpatient surgery department. She will be discharged home for follow-up in wound care services.
[2021-05-08 10:25] VITALS: BP 121/76; PULSE 76; RESP 16; TEMP 36.3; O2SAT 96
--- NOTE | 2021-05-08 10:27 | P.PCN_ITS ---
Documented by User: Dada Harrell CRNA 05/08/21 10:28 PACU note Narrative: VSS, Good respiratory effort, report to [employer]ENT[facility] ACCESS MANAGEMENT ARCHITECT Exam: awake
[2021-05-08 10:30] VITALS: BP 123/73; PULSE 74; RESP 16; O2SAT 97
[2021-05-08 10:43] VITALS: BP 139/69; PULSE 74; RESP 16; TEMP 36.2; O2SAT 98
[2021-05-08 11:14] VITALS: BP 144/81; PULSE 76; RESP 16; TEMP 36.7; O2SAT 98
--- NOTE | 2021-05-08 17:13 | ANE.PACU2 ---
Inpatient post-anesthesia follow up: Airway intact: Yes Vital signs: Temperature 98.0 F Pulse Rate 76 Respiratory Rate 16 Blood Pressure 144/81 Pulse Oximetry 98 Oxygen Delivery Me thod Room Air Oxygen Flow Rate Fraction of Inspir ed Oxygen Hydration adequate: Yes Nausea and vomiting: No Pain level: 2 Mental status: Baseline
== END 2021-05-08 11:10 | disposition home or self-care (01) ==
PROVIDERS: PCP Nurse Practitioner; Visit Provider Thoracic Surgery (Cardiothoracic Vascular Surgery)
PROC: (CPT 28820; principal; 2021-05-08 15:00)
DX: E11.621 Type 2 diabetes mellitus with foot ulcer (principal); S91.301A Unspecified open wound, right foot, initial encounter; X58.XXXA Exposure to other specified factors, initial encounter; Z79.4 Long term (current) use of insulin; I48.91 Unspecified atrial fibrillation; I10 Essential (primary) hypertension; Z85.3 Personal history of malignant neoplasm of breast; J44.9 Chronic obstructive pulmonary disease, unspecified; E78.5 Hyperlipidemia, unspecified; K21.9 Gastro-esophageal reflux disease without esophagitis; Z82.49 Family history of ischemic heart disease and other diseases of the circulatory system; Z82.3 Family history of stroke; F17.210 Nicotine dependence, cigarettes, uncomplicated; I25.10 Atherosclerotic heart disease of native coronary artery without angina pectoris; E11.9 Type 2 diabetes mellitus without complications
CPT/HCPCS: 28820; 36416; 82962; 88305; 88311; J2250; J2704; J3010; J3370; J7030

== ENCOUNTER 2021-05-11 08:30 | Outpatient (CLI) | payer MEDICAID, SELFPAY | END 2021-05-11 08:31 | disposition home or self-care (01) | LOC: WOUND 08:32 | PROVIDERS: PCP Nurse Practitioner; Visit Provider Thoracic Surgery (Cardiothoracic Vascular Surgery) | DX: E11.621 Type 2 diabetes mellitus with foot ulcer (principal); L97.519 Non-pressure chronic ulcer of other part of right foot with unspecified severity; F17.210 Nicotine dependence, cigarettes, uncomplicated; J44.9 Chronic obstructive pulmonary disease, unspecified; Z89.411 Acquired absence of right great toe | CPT/HCPCS: 99212 ==

== ENCOUNTER 2021-05-14 09:02 | Outpatient (CLI) | payer MEDICAID, SELFPAY | END 2021-05-14 09:03 | disposition home or self-care (01) | LOC: WOUND 09:03 | PROVIDERS: PCP Nurse Practitioner; Visit Provider Thoracic Surgery (Cardiothoracic Vascular Surgery) | DX: F17.210 Nicotine dependence, cigarettes, uncomplicated (principal); E11.9 Type 2 diabetes mellitus without complications; J44.9 Chronic obstructive pulmonary disease, unspecified; Z89.411 Acquired absence of right great toe | CPT/HCPCS: 99212 ==

== ENCOUNTER 2021-05-21 08:50 | Outpatient (CLI) | payer MEDICAID, SELFPAY | END 2021-05-21 08:51 | disposition home or self-care (01) | LOC: WOUND 08:50 | PROVIDERS: PCP Nurse Practitioner; Visit Provider Thoracic Surgery (Cardiothoracic Vascular Surgery) | DX: Z98.890 Other specified postprocedural states (principal); Z89.411 Acquired absence of right great toe; F17.210 Nicotine dependence, cigarettes, uncomplicated | CPT/HCPCS: 99212 ==

== ENCOUNTER 2021-05-28 08:44 | Outpatient (CLI) | payer MEDICAID, SELFPAY | END 2021-05-28 08:45 | disposition home or self-care (01) | LOC: WOUND 08:45 | PROVIDERS: PCP Nurse Practitioner; Visit Provider Thoracic Surgery (Cardiothoracic Vascular Surgery) | DX: E11.621 Type 2 diabetes mellitus with foot ulcer (principal); L97.519 Non-pressure chronic ulcer of other part of right foot with unspecified severity; F17.210 Nicotine dependence, cigarettes, uncomplicated | CPT/HCPCS: 99212 ==

== ENCOUNTER 2021-06-04 08:44 | Outpatient (CLI) | payer MEDICAID, SELFPAY | END 2021-06-04 08:45 | disposition home or self-care (01) | LOC: WOUND 08:44 | PROVIDERS: PCP Nurse Practitioner; Visit Provider Thoracic Surgery (Cardiothoracic Vascular Surgery) | DX: E11.621 Type 2 diabetes mellitus with foot ulcer (principal); F17.210 Nicotine dependence, cigarettes, uncomplicated; Z89.411 Acquired absence of right great toe; L97.511 Non-pressure chronic ulcer of other part of right foot limited to breakdown of skin | CPT/HCPCS: 99212 ==

== ENCOUNTER 2021-06-11 10:19 | Outpatient (CLI) | payer MEDICAID, SELFPAY | END 2021-06-11 10:20 | disposition home or self-care (01) | LOC: WOUND 10:20 | PROVIDERS: PCP Nurse Practitioner; Visit Provider Thoracic Surgery (Cardiothoracic Vascular Surgery) | DX: E11.621 Type 2 diabetes mellitus with foot ulcer (principal); L97.511 Non-pressure chronic ulcer of other part of right foot limited to breakdown of skin; Z89.421 Acquired absence of other right toe(s); F17.210 Nicotine dependence, cigarettes, uncomplicated | CPT/HCPCS: 97597 ==

== ENCOUNTER 2021-06-18 03:44 | Observation (INO) | payer MEDICAID, SELFPAY ==
[2021-06-18] VITALS (10 sets, daily range): BP systolic 100–136; BP diastolic 61–87; PULSE 67–134; RESP 13–24; TEMP 36.1–36.4; O2SAT 92–99; BMI 36.6
--- NOTE | 2021-06-18 04:07 | ECG_ITS ---
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 Measurements Intervals [place] Rate: 131 P: 22 MN: 201 QRS: -27 QRSD: 127 T: 35 QT: 337 QTc: 498 Interpretive Statements SINUS TACHYCARDIA BORDERLINE LEFT AXIS DEVIATION [QRS AXIS < -20] POSSIBLE RIGHT VENTRICULAR CONDUCTION DELAY [RSR (QR) IN V1/V2] Compared to ECG 05/01/2021 09:44:07 Sinus rhythm no longer present Electronically Signed On 06-18-2021 8:59:58 CDT by Santo Hinojosa M.D. [email or web address]
--- NOTE | 2021-06-18 04:07 | XRR_ITS ---
PROCEDURE INFORMATION: Exam: XR Chest Exam date and time: 06/18/2021 4:23 AM Age: 56 years old Clinical indication: Pain; Chest pressure; Additional info: Cp TECHNIQUE: Imaging protocol: XR of the chest. Views: 1 view. COMPARISON: CR XR chest 2V* [id number] 05/01/2021 10:01 AM FINDINGS: Lungs: Unremarkable. No consolidation. Pleural spaces: Unremarkable. No pleural effusion. No pneumothorax. Heart/Mediastinum: Unremarkable. No cardiomegaly. Bones/joints: Unremarkable. Soft tissues: There has been a right axillary node dissection. XR/XR chest 1V portable [id number] IMPRESSION: No acute disease.
[2021-06-18 04:18] LABS: Basophils # 0.1 10^3/uL (0.0-0.1); Basophils % 0.7 %; Eosinophils # 0.2 10^3/uL (0.0-0.8); Eosinophils % 1.5 %; Hematocrit 49.1 % (37.0-47.0); Hemoglobin 16.4 g/dL (11.5-15.3); Lymphocytes # 5.5 10^3/uL (0.8-4.8); Lymphocytes % 36.9 %; Mean Corpuscular HGB Conc 33.4 g/dL (30.0-36.0); Mean Corpuscular Hemoglobin 28.8 pg (28.0-34.0); Mean Corpuscular Volume 86.1 fl (81-99); Mean Platelet Volume 12.8 fL (7.4-10.4); Monocytes # 1.2 10^3/uL (0.2-0.9); Neutrophils # 7.79 10^3/uL (1.8-7.7); Neutrophils % 52.6 %; Nucleated Red Blood Cells % 0 %; Platelet Count 290 10^3/cmm (130-400); Red Cell Distribution Width 13.8 % (12.1-15.1); White Blood Count 14.8 10^3/uL (4.0-10.0)
[2021-06-18] MEDS: sodium chloride 0.9% 500 ML 999 ML IV (04:25)
[2021-06-18 04:33] LABS: Troponin(5th) Baseline 12 ng/L (0-10)
[2021-06-18 04:38] LABS: D Dimer 0.69 ug/mIFEU (0-0.59)
--- NOTE | 2021-06-18 04:47 | ED_ITS ---
HPI - General Adult General: Chief complaint: General Medical Stated complaint: WEAKNESS Time Seen by Provider: 06/18/21 04:02 Source: patient History of Present Illness: 56-year-old female with a history of atrial fibrillation. She presents with chest discomfort the last 24 hours. She has had palpitations as well. She has had shortness of breath. She denies fever, significant cough, or vomiting or diarrhea. She has some increased leg swelling. She knows that her heart rate has been fast. She is attempted to take a couple of doses of diltiazem in order to slow the rate. This has not seemed to help. Onset (ago): hour(s) (24) Location: chest Radiation: non-radiation Quality: aching Pain Consistency: constant Relieving factors: none Exacerbating factors: other (Exertion) Associated symptoms: Reports chest pain, dyspnea, headache(s), malaise, nausea, palpitations, short of breath and weakness (Generalized); Deny cough, fevers/chills or vomiting Review of Systems Const: Reports: malaise Card: Reports: chest pain and palpitations Resp: Reports: dyspnea and non-productive cough (Chronic); Denies: productive cough GI: Reports: nausea; Denies: vomiting Musc: Reports: back pain Neuro: Reports: headache(s) PFSH ED PFSH: Medical History Asthma Atrial fibrillation Benign hypertension Breast cancer, left breast Breast cancer, right COPD (chronic obstructive pulmonary disease) COPD exacerbation Diabetes mellitus with hyperglycemia, with long-term current use of insulin Dyslipidemia Gastroesophageal reflux disease Open wound of foot Right great toe SVT (supraventricular tachycardia) Ulcer of foot, chronic Surgical History H/O bilateral mastectomy History of appendectomy History of hysterectomy Status post left breast lumpectomy Status post right breast lumpectomy Family History Father CAD (coronary artery disease) CHF (congestive heart failure) Hyperlipidemia Hypertension Lung disease Stroke Other Diabetes Denies family history of Clotting disorder Dementia Psychiatric illness Chronic kidney disease (CKD) Suicide Anesthesia complication Bleeding disorder Family history of premature coronary artery disease Cancer Social History Smoking and tobacco status: current every day smoker cigarettes Packs smoked per day: 2 Second hand smoke exposure: Yes Smoking risk assessment/counseling performed?: Yes Alcohol intake: never Desire information about alcohol rehabilitation?: No Counseling given: No Desire information about substance/drug rehabilitation?: No Counseling given: No Adopted: No Caregiver/support person: No Lives independently: Yes Household members: family Housing: House Marital status: Single Number of children: 1 service: No Current occupational status: employed History of recent travel: No Current gender identity: Female Physical Exam Const: GENERAL APPEARANCE: cooperative and ill appearing ORIENTATION/CONSCIOUSNESS: Yes awake, Yes oriented to person, Yes oriented to place and Yes oriented to time HENMT: COMMON NORMALS: normocephalic and atraumatic HEAD & SCALP: normocephalic and atraumatic FACE & SINUS: normal facial exam Eye: COMMON NORMALS: Equal, round and reactive pupils present and EOMs intact bilaterally PUPIL: Yes Equal, round and reactive pupils present Chest: COMMONS NORMALS: normal inspection of the chest Resp: COMMON NORMALS: normal respiratory effort, No use of accessory muscles and clear to auscultation bilaterally AUSCULTATION: clear to auscultation bilaterally Cardio: COMMON NORMALS: regular rhythm RATE: tachycardic RHYTHM: regular rhythm GI: COMMON NORMALS: Normal to inspection, nondistended, normoactive bowel sounds present, Soft to palpation and non-tender PALPATION: Yes Soft to palpation Extremity: GENERAL: Yes edema (mild) Neuro: BECCA COMA SCALE: document GCS findings [place] coma scale eye opening: Spontaneous [place] coma scale verbal response: Orientated Be[place] coma scale motor response: Obey commands Becca coma scale total score: 15 SENSORIUM/ORIENTATION: Yes oriented to person, Yes oriented to place and Yes oriented to time Course Consultations: Consultation #1: Juliet Time: 06:33 Vital Signs: Vital signs: Vital Signs Temperature 97.0 F L 06/18/21 03:47 Pulse Rate 132 H 06/18/21 06:17 Respiratory Rate 18 06/18/21 06:17 Blood Pressure 100/66 06/18/21 06:17 Pulse Oximetry 98 06/18/21 06:17 [facility] - General Adult Medical Decision Making 56-year-old female with a history of atrial fibrillation. She is on flecainide and diltiazem. She presents with palpitations and chest pain for 24 hours. Her white blood cell count is 14.8. Hemoglobin is 16.4. BUN is 21 creatinine of 1.6. Her bicarbonate level is 23. Sugar is 342. The patient has heart rate in the 140s on presentation. She is given IV fluids, diltiazem with improvement to the 120s. No improvement further. She is given digoxin IV without any effect. She is currently on diltiazem drip after another bolus of 20 mg. Heart rate is still in the 120s. D-dimer is 0.69 which is lower than her last. She is already on rivaroxaban for her atrial fibrillation. TSH is 3. Liver enzymes are normal. First troponin is only 12. She will get another bolus of fluid along with the drip. Cause is unknown at this point. Urinalysis is pending. Chest x-ray is normal. She'll have to stay on the diltiazem drip. She will be observed Lab Data : 06/18/21 03:56 06/18/21 04:54 Radiology Impressions Chest X-Ray 06/18/21 04:07 IMPRESSION: No acute disease. Laboratory Results WBC 14.8 10^3/uL (4.0-10.0) H 06/18/21 03:56 RBC 5.70 10^6/uL (4.1-5.3) H 06/18/21 03:56 Hgb 16.4 g/dL (11.5-15.3) H 06/18/21 03:56 Hct 49.1 % (37.0-47.0) H 06/18/21 03:56 MCV 86.1 fl (81-99) 06/18/21 03:56 MCH 28.8 pg (28.0-34.0) 06/18/21 03:56 MCHC 33.4 g/dL (30.0-36.0) 06/18/21 03:56 RDW 13.8 % (12.1-15.1) 06/18/21 03:56 Plt Count 290 10^3/cmm (130-400) 06/18/21 03:56 MPV 12.8 fL (7.4-10.4) H 06/18/21 03:56 Neut % (Auto) 52.6 % 06/18/21 03:56 Lymph % (Auto) 36.9 % 06/18/21 03:56 [place] % (Auto) 8.0 % 06/18/21 03:56 Eos % (Auto) 1.5 % 06/18/21 03:56 Baso % (Auto) 0.7 % 06/18/21 03:56 Neut # (Auto) 7.79 10^3/uL (1.8-7.7) H 06/18/21 03:56 Lymph # (Auto) 5.5 10^3/uL (0.8-4.8) H 06/18/21 03:56 [place] # (Auto) 1.2 10^3/uL (0.2-0.9) H 06/18/21 03:56 Eos # (Auto) 0.2 10^3/uL (0.0-0.8) 06/18/21 03:56 Baso # (Auto) 0.1 10^3/uL (0.0-0.1) 06/18/21 03:56 Nucleated RBC % (auto) 0 % 06/18/21 03:56 Nucleated RBCs # 0.0 /100WBC 06/18/21 03:56 D-Dimer 0.69 ug/mIFEU (0-0.59) H 06/18/21 04:16 Sodium 137 mmol/L (136-145) 06/18/21 04:54 Potassium 3.8 mmol/L (3.5-5.1) 06/18/21 04:54 Chloride 100 mmol/L (98-107) 06/18/21 04:54 Carbon Dioxide 23 mmol/L (22-29) 06/18/21 04:54 Anion Gap 17.8 (5-19) 06/18/21 04:54 BUN 21 mg/dL (6-20) H 06/18/21 04:54 Creatinine 0.6 mg/dL (0.5-0.9) 06/18/21 04:54 GFR Calculation 103.0 mL/min (90-130) 06/18/21 04:54 Glucose 342 mg/dL (65-115) H 06/18/21 04:54 Calculated Osmolality 301 mOsm/kg (285-295) H 06/18/21 04:54 Calcium 8.5 mg/dL (8.5-10.5) 06/18/21 04:54 Total Bilirubin 0.3 mg/dL (0.15-1.2) 06/18/21 04:54 AST 14 U/L (0-32) 06/18/21 04:54 ALT 7 U/L (0-33) 06/18/21 04:54 Alkaline Phosphatase 104 IU/L (35-105) 06/18/21 04:54 Troponin T Baseline 12 ng/L (0-10) H 06/18/21 03:56 NT-Pro-B Natriuret Pep 2673 pg/mL (0-125) H 06/18/21 04:54 Total Protein 6.0 g/dL (6.6-8.7) L 06/18/21 04:54 Albumin 3.2 g/dL (3.5-5.2) L 06/18/21 04:54 Globulin 2.8 g/dL (1.3-4.6) 06/18/21 04:54 TSH 3.02 uIU/mL (0.27-4.20) 06/18/21 04:54 Discharge Plan Discharge Patient Disposition: Placed in Observation Clinical Impression: Chest pain, Tachycardia Coding Level of Care Code ED Pattern Grader for Briana Fwd Exam Comprehensive
[2021-06-18] MEDS: digoxin 250 mcg/ml INJ 2 mL IVP ×2 (05:21→12:39)
[2021-06-18 05:36] LABS: Albumin Level 3.2 g/dL (3.5-5.2); Alkaline Phosphatase 104 IU/L (35-105); Blood Urea Nitrogen 21 mg/dL (6-20); Calcium 8.5 mg/dL (8.5-10.5); Carbon Dioxide 23 mmol/L (22-29); Chloride 100 mmol/L (98-107); Globulin 2.8 g/dL (1.3-4.6); Glucose 342 mg/dL (65-115); NT Pro B Type Natriuretic Pept 2673 pg/mL (0-125); Osmolality Calculated 301 mOsm/kg (285-295); Sodium 137 mmol/L (136-145); Thyroid Stimulating Hormone 3.02 uIU/mL (0.27-4.20); Total Bilirubin 0.3 mg/dL (0.15-1.2)
[2021-06-18 06:07] LABS: Alanine Aminotransferase 7 U/L (0-33); Anion Gap 17.8 (5-19); Aspartate Amino Transferase 14 U/L (0-32); Potassium 3.8 mmol/L (3.5-5.1)
--- NOTE | 2021-06-18 06:07 | ECG_ITS ---
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 Measurements Intervals [place] Rate: 126 P: 220 ID: [id number] QRS: -27 QRSD: 119 T: 49 QT: 323 QTc: 469 Interpretive Statements SINUS TACHYCARDIA BORDERLINE LEFT AXIS DEVIATION [QRS AXIS < -20] MODERATE INTRAVENTRICULAR CONDUCTION DELAY [110+ ms QRS DURATION] Compared to ECG 06/18/2021 04:22:42 Intraventricular conduction delay now present Electronically Signed On 06-18-2021 9:03:37 CDT by Santo Hinojosa M.D. [id number]
[2021-06-18] MEDS: sodium chloride 0.9% 1,000 ML 999 ML IV (07:04)
[2021-06-18 07:12] LABS: Add Urine Microscopic? YES; Bilirubin Urine Neg (Negative); Blood Urine Neg (Negative); Glucose Urine UA 4+ (Normal); Ketones Urine Negative (Negative); Leukocyte Esterase Urine 2+ (Negative); Nitrate Urine Negative (Negative); Protein Urine Trace (Negative); Specific Gravity, Urine 1.015 (1.005-1.030); Urine Appearance Hazy (CLEAR); Urine Color Yellow (Yellow); Urobilinogen Urine Norm (Negative); pH Urine 6 (5-7)
[2021-06-18 07:14] LABS: Add Urine Culture? No; Bacteria Urine 3+ /hpf; Calcium Oxalate Crystals Urine 0-4 /hpf; Squamous Epithelial Cell Urine 25-40 /hpf (0-5); WBC Urine 15-25 /hpf (0-5)
[2021-06-18 07:24] LABS: Troponin 5 2HR 9.84 ng/L (0-10)
[2021-06-18 07:26] LABS: Troponin 5 2HR Delta -2.16 ABS# (0-10)
[2021-06-18 09:20] LABS: Magnesium 1.6 mg/dL (1.7-2.3)
--- NOTE | 2021-06-18 09:22 | PM.CONSULT ---
Providers/Reason For Consult Consulting Physician/Specialty*: Adriano Ojeda, Hospitalist Reason for Consult*: Elevated heart rate, SVT Requesting Physician: Emergency department Primary Care Provider: RICHARD Flores History of Present Illness History of Present Illness Soni Head is a 56 year old female who presented to the emergency department with 24 hours of palpitations. She has a past history of SVT as well as atrial fibrillation which was treated by electrophysiology. She normally will have an episode, every 3 months or so. She is being evaluated if she needs ablation. Typically she would take an extra Cardizem at home and it would go away, but this did not happen. In the emergency department she got some Cardizem IV, as well as a dose of digoxin and has subsequently converted following her arrangements for admission. She is still in the emergency department at this point. She did not have any chest discomfort. She did not have any vomiting. She has not been ill. She does not drink a significant amount of caffeine. She has not missed any doses of medicine. She has been under quite a bit of stress lately. Review of Systems General: Reports: 10 or more systems reviewed and unremarkable except in HPI and below Const: Denies: fever(s) or chills Eyes: Denies: change in vision ENMT: Denies: throat pain Card: Reports: palpitations; Denies: chest pain Resp: Denies: dyspnea GI: Denies: abdominal pain or nausea : Denies: flank pain Skin/Breast: Denies: rash Neuro: Denies: headache(s) Psych: Denies: anxiety or depression Endo: Denies: polyuria Tio/Lymph: Denies: easy bruising All/Imm: Denies: urticaria Medications/Allergies Home Medications Medication Instructions Recorded Confirmed Last Taken Type albuterol sulfate 2.5 mg (3 mL) INHALATION QID PRN 02/25/20 06/18/21 Unknown Rx 30 Days #75 ml acetaminophen 500 mg tablet 1,000 mg PO TID@,,06/29/20 06/18/21 05/08/21 History (Tylenol Extra Strength) loperamide 2 mg tablet 2 - 4 mg PO PRN PRN 06/29/20 06/18/21 Unknown History (Anti-Diarrheal (loperamide)) blood sugar diagnostic (OneTouch #100 ea 12/26/20 06/18/21 Unknown Rx Ultra Test) blood-glucose meter (OneTouch #1 ea 12/26/20 06/18/21 Unknown Rx Ultra2 Meter) lancets 33 gauge (OneTouch Delica #100 ea 12/26/20 06/18/21 Unknown Rx Plus Lancet) flecainide 100 mg tablet 100 mg PO Q12H #180 tab 02/27/21 06/18/21 05/07/21 Rx albuterol sulfate 90 mcg/actuation 2 puff INHALATION Q4H PRN 30 Days 04/02/21 06/18/21 Unknown Rx aerosol inhaler (ProAir HFA) #6.7 gm duloxetine 60 mg capsule,delayed 60 mg PO BID #60 cap 04/02/21 06/18/21 05/07/21 Rx release furosemide 20 mg tablet (Lasix) 20 mg PO QAM #30 tab 04/02/21 06/18/21 05/08/21 Rx rivaroxaban 20 mg tablet (Xarelto) 20 mg PO BEDTIME 30 Days #30 tab 04/02/21 06/18/21 05/06/21 Rx insulin aspart U-100 100 unit/mL See Rx Instructions SUBCUT TID #15 04/06/21 06/18/21 05/07/21 Rx (3 mL) subcutaneous pen (Novolog ml Flexpen U-100 Insulin aspart) pen needle, diabetic 33 gauge x #200 ea 04/06/21 06/18/21 Unknown Rx fluticasone 250 mcg-salmeterol 50 1 inh INHALATION BEDTIME 05/07/21 06/18/21 Unknown History mcg/dose blistr powdr for inhalation (Advair Diskus) insulin detemir U-100 100 unit/mL 50 unit SUBCUT BEDTIME 05/07/21 06/18/21 05/07/21 History (3 mL) subcutaneous pen (Levemir FlexTouch U-100 Insulin) tizanidine 2 mg tablet 2 mg PO BEDTIME PRN 05/07/21 06/18/21 05/07/21 History hydrocodone 5 mg-acetaminophen 325 1 tab PO Q8H PRN #20 tab 05/08/21 06/18/21 Unknown Rx mg tablet ascorbate calcium (vitamin C) 500 1,000 mg PO BEDTIME 06/18/21 06/18/21 Unknown History mg tablet atorvastatin 20 mg tablet 20 mg PO BEDTIME 06/18/21 06/18/21 Unknown History chlorpheniramine maleate 4 mg 4 mg PO TID 06/18/21 06/18/21 Unknown History tablet diltiazem HCl 120 mg 120 mg PO QAM 06/18/21 06/18/21 Unknown History capsule,extended release 24 hr glipizide 10 mg tablet 10 mg PO BID 06/18/21 06/18/21 Unknown History ibuprofen 200 mg tablet 800 mg PO BEDTIME 06/18/21 06/18/21 Unknown History liraglutide 0.6 mg/0.1 mL (18 mg/3 0.6 mg SUBCUT BEDTIME 06/18/21 06/18/21 Unknown History mL) subcutaneous pen injector (Victoza 3-Macario) lisinopril 20 mg tablet 20 mg PO BEDTIME 06/18/21 06/18/21 Unknown History nitroglycerin 0.4 mg sublingual 0.4 mg SUBLINGUAL Q5M PRN 06/18/21 06/18/21 Unknown History tablet (Nitrostat) pantoprazole 40 mg tablet,delayed 40 mg PO DAILY@11 06/18/21 06/18/21 Unknown History release (Protonix) trazodone 100 mg tablet 100 mg PO BEDTIME PRN 06/18/21 06/18/21 Unknown History valerian root 500 mg capsule 500 - 1,000 mg PO BEDTIME 06/18/21 06/18/21 Unknown History Allergies Allergy/AdvReac Type Severity Reaction Status Date / Time azithromycin [From Zithromax] Allergy Unknown Unknown Verified 06/18/21 09:12 sulfamethoxazole Allergy Unknown Unknown Verified 06/18/21 09:12 [From Bactrim] trimethoprim [From Bactrim] Allergy Unknown Unknown Verified 06/18/21 09:12 Current Medications Generic Name Dose Route Start Last Admin Trade Name Freq PRN Reason Stop Dose Admin Diltiazem HCl 125 mg/ Sodium 125 mls @ 0 mls/hr 06/18/21 06:00 06/18/21 06:22 Chloride IV 5 mg/hr .Q0M KELSEA 5 mls/hr Administration Protocol Per Protocol PFSH Acute PFSH: Medical History Asthma Atrial fibrillation Benign hypertension Breast cancer, left breast Breast cancer, right COPD (chronic obstructive pulmonary disease) COPD exacerbation Diabetes mellitus with hyperglycemia, with long-term current use of insulin Dyslipidemia Gastroesophageal reflux disease Open wound of foot Right great toe SVT (supraventricular tachycardia) Ulcer of foot, chronic Surgical History H/O bilateral mastectomy History of appendectomy History of hysterectomy Status post left breast lumpectomy Status post right breast lumpectomy Family History Father CAD (coronary artery disease) CHF (congestive heart failure) Hyperlipidemia Hypertension Lung disease Stroke Other Diabetes Denies family history of Clotting disorder Dementia Psychiatric illness Chronic kidney disease (CKD) Suicide Anesthesia complication Bleeding disorder Family history of premature coronary artery disease Cancer Social History Smoking and tobacco status: current every day smoker cigarettes Packs smoked per day: 2 Second hand smoke exposure: Yes Smoking risk assessment/counseling performed?: Yes Alcohol intake: never Desire information about alcohol rehabilitation?: No Counseling given: No Desire information about substance/drug rehabilitation?: No Counseling given: No Adopted: No Caregiver/support person: No Lives independently: Yes Household members: family Housing: House Marital status: Single Number of children: 1 service: No Current occupational status: employed History of recent travel: No Current gender identity: Female Vitals/I&O/Wt Last Vital Signs Temp 97.0 F L 06/18/21 03:47 Pulse 132 H 06/18/21 06:17 Resp 18 06/18/21 06:17 BP 100/66 06/18/21 06:17 Pulse Ox 98 06/18/21 06:17 06/17/21 06/18/21 06/18/21 22:59 06:59 14:59 Intake Total 500 / 500 1000 / 1000 Balance 500 / 500 1000 / 1000 Weight last 48 hrs Weight 106.141 kg Physical Exam Narrative: General exam is a white female, who reports she feels much better, heart rate 75 HEENT: Pupils equally round. Oropharynx clear. Neck is supple no lymphadenopathy thyromegaly Cardiovascular regular rate and rhythm without murmur, no S3 or S4 Lungs clear no wheezing or crackles Abdomen is soft nontender positive bowel sounds. No obvious organomegaly exams deferred Extremities no cyanosis clubbing or edema. Right great toe amputation is noted, without any surrounding cellulitis. Skin no rash Neuro no focal deficits. Data : 06/18/21 03:56 06/18/21 04:54 Other Labs: Urinalysis contaminated, TSH normal, LFTs normal BNP 2673 Troponin XII with repeat of 9 Magnesium pending D-dimer 0.69 Chest x-ray clear EKG initially showed SVT, rate of 130, normal axis. A&P Assessment and plan (1) SVT (supraventricular tachycardia): No particular trigger She has since converted to sinus rhythm. Will do EKG. Await magnesium We will go ahead and give her her regular dose of flecainide. Diltiazem, home dose around 10. If no recurrence, blood pressure tolerates, discharge home around 11. 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 Fw Diagnoses SVT (supraventricular tachycardia) I47.1 Atrial fibrillation I48.0 Atrial fibrillation type: paroxysmal
[2021-06-18] MEDS: flecainide 100 mg Tablet PO ×2 (09:24→21:54)
[2021-06-18] MEDS: dilTIAZem ER (24HR) 120 mg Capsule PO (10:05)
--- NOTE | 2021-06-18 10:07 | ECG_ITS ---
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 Measurements Intervals [place] Rate: 72 P: 28 ID: [id number] QRS: 26 QRSD: 106 T: 66 QT: 423 QTc: 464 Interpretive Statements SINUS RHYTHM POSSIBLE ANTERIOR MYOCARDIAL INFARCTION , PROBABLY OLD [30 ms Q WAVE IN V3/V4, OR R < 0.2 mV IN V4] Compared to ECG 06/18/2021 06:19:11 Myocardial infarct finding now present Sinus tachycardia no longer present Intraventricular conduction delay no longer present Electronically Signed On 06-18-2021 22:00:05 CDT by Santo Hinojosa M.D. [id number]
[2021-06-18] MEDS: magnesium sulfate premix 2 GM/50 ML PIGGYBACK IV (12:38)
--- NOTE | 2021-06-18 12:48 | USCV_ITS ---
[facility] Age: 56 Gender: F : 1965 Exam Date: 06/18/2021 13:17 Ordering Phys: Adriano Gore MD Technologist: POOJA Exam Location: [facility] [place] Indication: SVT, AFIB BP: 136 / 61 HR: 66 Rhythm: Sinus Technical Quality: Adequate MEASUREMENTS (Male / Female) Normal Values 2D ECHO LV Diastolic Diameter PLAX 4.4 cm 4.2 - 5.9 / 3.9 - 5.3 cm LV Systolic Diameter PLAX 2.8 cm IVS Diastolic Thickness 1.4 cm 0.6 - 1.0 / 0.6 - 0.9 cm IVS Systolic Thickness 1.7 cm LVPW Diastolic Thickness 1.1 cm 0.6 - 1.0 / 0.6 - 0.9 cm LVPW Systolic Thickness 1.6 cm LVOT Diameter 2.0 cm LV Ejection Fraction 2D Teich 66.6 % LV Ejection Fraction MOD 2C 76.9 % LV Ejection Fraction 2C AL 77.1 % LA Diameter 3.3 cm LA Width 3.9 cm LA Height 4.0 cm RA Width 3.3 cm RA Height 4.1 cm Aorta at Sinotubular Diameter 2.3 cm M-MODE Aortic Annulus Diameter 2.8 cm LA Ao Ratio MM 1.2 MV E Point Septal Separation 0.3 cm DOPPLER AV Peak Velocity 166.0 cm/s LVOT Peak Velocity 112.0 cm/s AV Area Cont Eq vti 2.3 cm squared AV Area Cont Eq pk 2.1 cm squared MV Peak Velocity 89.0 cm/s MV Area PHT 3.0 cm squared Mitral E to A Ratio 1.3 MV E' Velocity 40.0 cm/s Mitral E to MV E' Ratio 8.4 Mitral E to LV E' Lateral Ratio 9.4 Mitral E to LV E' Septal Ratio 7.6 TR Peak Velocity 211.7 cm/s TR Peak Gradient 17.9 mmHg TR Mean Velocity 148.5 cm/s TR Mean Gradient 9.5 mmHg TR Velocity Time Integral 45.2 cm TV Peak E Velocity 45.0 cm/s Right Atrial Pressure 3.0 mmHg Pulmonary Artery Systolic Pressu 20.9 mmHg PV Peak Velocity 89.0 cm/s RV Acceleration Time 0.1 s RV Ejection Time 0.3 s RV AcT/ET 0.2 FINDINGS Left Ventricle Normal left ventricular size and systolic function, EF 76 %. No regional wall motion abnormalities. Right Ventricle Normal right ventricular size and systolic function. Right Atrium Mildly increased right atrial size. Left Atrium Mildly increased left atrial size. small atrial septal aneurysm Mitral Valve Trace mitral valve regurgitation. Aortic Valve No Gross abnormalities noted Tricuspid Valve Mild tricuspid valve regurgitation. Pulmonic Valve Pulmonic valve not well visualized. Pericardium No pericardial effusion. Aorta Normal aortic annulus size. CONCLUSIONS Normal left ventricular size and systolic function, EF 76 %. No regional wall motion abnormalities. Mild biatrial enlargement. Small atrial septal aneurysm with no interatrial shunt, based on color flow Doppler exam Mild tricuspid regurgitation with a trace of mitral regurgitation There is no pericardial effusion. There are no intracardiac masses. Compared to the study from 10/12, there may not be significant Dr Theodora Valladares MD FAC (Electronically Signed) Final Date: 18 June 2021 23:21 S
[2021-06-18] MEDS: metoprolol tartrate 1 mg/1 mL SDV 5 mL 5 MG IVP (12:58)
[2021-06-18 18:08] LABS: Glucose Point of Care 284 mg/dL (70-110)
[2021-06-18] MEDS: insulin lispro 100 unit/1 mL SUBCUT (18:32)
[2021-06-18] MEDS: duloxetine 60 mg Capsule PO (18:32)
[2021-06-18] MEDS: atorvastatin 40 mg Tablet 20 MG PO (21:54)
[2021-06-18] MEDS: lisinopril 20 mg Tablet PO (21:55)
[2021-06-18] MEDS: rivaroxaban 10 mg Tablet 20 MG PO (21:55)
[2021-06-19 03:26] VITALS: BP 155/69; PULSE 83; RESP 16; TEMP 36.6; O2SAT 96
[2021-06-19 03:34] LABS: Basophils # 0.1 10^3/uL (0.0-0.1); Basophils % 0.8 %; Eosinophils # 0.4 10^3/uL (0.0-0.8); Eosinophils % 3.8 %; Hematocrit 43.8 % (37.0-47.0); Hemoglobin 14.5 g/dL (11.5-15.3); Lymphocytes # 3.6 10^3/uL (0.8-4.8); Lymphocytes % 36.9 %; Mean Corpuscular HGB Conc 33.1 g/dL (30.0-36.0); Mean Corpuscular Hemoglobin 29.3 pg (28.0-34.0); Mean Corpuscular Volume 88.5 fl (81-99); Mean Platelet Volume 12.2 fL (7.4-10.4); Monocytes # 0.7 10^3/uL (0.2-0.9); Monocytes % 7.2 %; Neutrophils # 4.98 10^3/uL (1.8-7.7); Neutrophils % 50.9 %; Nucleated Red Blood Cells % 0 %; Platelet Count 276 10^3/cmm (130-400); Red Blood Count 4.95 10^6/uL (4.1-5.3); Red Cell Distribution Width 13.4 % (12.1-15.1); White Blood Count 9.8 10^3/uL (4.0-10.0)
[2021-06-19 03:54] LABS: Alanine Aminotransferase 8 U/L (0-33); Albumin Level 3.2 g/dL (3.5-5.2); Alkaline Phosphatase 114 IU/L (35-105); Anion Gap 15.6 (5-19); Aspartate Amino Transferase 9 U/L (0-32); Blood Urea Nitrogen 17 mg/dL (6-20); Calcium 8.6 mg/dL (8.5-10.5); Carbon Dioxide 22 mmol/L (22-29); Chloride 104 mmol/L (98-107); Globulin 3.1 g/dL (1.3-4.6); Glomerular Filtration Rate 127.2 mL/min (90-130); Glucose 335 mg/dL (65-115); Magnesium 1.9 mg/dL (1.7-2.3); Osmolality Calculated 301 mOsm/kg (285-295); Potassium 3.6 mmol/L (3.5-5.1); Sodium 138 mmol/L (136-145); Total Bilirubin 0.3 mg/dL (0.15-1.2); Total Protein 6.3 g/dL (6.6-8.7)
[2021-06-19 06:37] LABS: Glucose Point of Care 295 mg/dL (70-110)
[2021-06-19] MEDS: FUROsemide 20 mg Tablet PO (06:41)
[2021-06-19] MEDS: dilTIAZem ER (24HR) 120 mg Capsule PO (06:42)
--- NOTE | 2021-06-19 07:00 | PC.NURSE ---
Bedside report received from Trice RN patient awake alert and involved in discussion of plan of care and goals for shift patient denies pain.
[2021-06-19 07:35] VITALS: PULSE 84; RESP 18; O2SAT 92
[2021-06-19 07:39] VITALS: BP 136/79; PULSE 82; RESP 16; TEMP 36.4; O2SAT 94
[2021-06-19] MEDS: dilTIAZem ER (24HR) 180 mg Capsule PO (08:07)
[2021-06-19] MEDS: potassium chloride ER 20 mEq Tablet 40 MEQ PO (08:07)
[2021-06-19] MEDS: magnesium oxide 400 mg tablet PO (08:08)
[2021-06-19] MEDS: duloxetine 60 mg Capsule PO (08:08)
[2021-06-19] MEDS: insulin lispro 100 unit/1 mL SUBCUT (08:08)
--- NOTE | 2021-06-19 09:25 | P.DS_ITS ---
Discharge Providers Date of Admission: 06/18/21 12:49 Date of Discharge: June 19, 2021 Attending Provider at Admission: Adriano Gore MD Attending Provider at Discharge: Adriano Gore MD Primary Care Provider: RICHARD Flores Diagnoses at Discharge Discharge Diagnosis (1) SVT (supraventricular tachycardia): Status: Acute (2) Atrial fibrillation: Status: Acute Qualifiers: Atrial fibrillation type: paroxysmal Qualified Code(s): I48.0 - Paroxysmal atrial fibrillation Reason for Visit Reason for Visit: WEAKNESS Hospital Course Hospital Course Soni presented to the hospital with palpitations. She has a history of atrial fibrillation as well as SVT. Rhythm in the emergency department was SVT. She received several doses of metoprolol as well as Cardizem and converted. There were plans to send her home but then she had recurrence when she was up and about. She was therefore observed in the hospital. Overall dose of Cardizem was increased. She did get digoxin on admission and 1 follow-up dose. Echocardiogram was performed demonstrating preserved ejection fraction, mild biatrial enlargement, small atrial septal aneurysm with no shunt. Overall this was unchanged from previous echocardiogram. Magnesium was also low, and treated with IV magnesium. At time of discharge she felt comfortable going home. Cardizem was increased to 180 mg. She will take magnesium once daily. She will follow-up with her crossbar switch adjuster as soon as possible, who is considering ablation. Discharge heart rate 80, sinus. Troponin was checked during this hospital stay and no significant delta. Physical Exam Narrative: General exam no apparent distress Neck is supple no lymphadenopathy thyromegaly Cardiovascular regular rate and rhythm without murmur Lungs clear no wheezing or crackles Abdomen is soft nontender positive bowel sounds Extremities no cyanosis clubbing or edema Discharge Data Studies Completed and Pending Completed Studies During Hospitalization Category Date Time Status XR chest 1V portable [id number] Stat Exams 06/18/21 04:07 Completed CV. echo complete* [id number] Routine Ultrasound 06/18/21 12:48 Completed Radiology Impressions Chest X-Ray 06/18/21 04:07 IMPRESSION: No acute disease. Laboratory Results WBC 9.8 10^3/uL (4.0-10.0) 06/19/21 02:50 RBC 4.95 10^6/uL (4.1-5.3) 06/19/21 02:50 Hgb 14.5 g/dL (11.5-15.3) 06/19/21 02:50 Hct 43.8 % (37.0-47.0) 06/19/21 02:50 MCV 88.5 fl (81-99) 06/19/21 02:50 MCH 29.3 pg (28.0-34.0) 06/19/21 02:50 MCHC 33.1 g/dL (30.0-36.0) 06/19/21 02:50 RDW 13.4 % (12.1-15.1) 06/19/21 02:50 Plt Count 276 10^3/cmm (130-400) 06/19/21 02:50 MPV 12.2 fL (7.4-10.4) H 06/19/21 02:50 Neut % (Auto) 50.9 % 06/19/21 02:50 Lymph % (Auto) 36.9 % 06/19/21 02:50 Alfalfa % (Auto) 7.2 % 06/19/21 02:50 Eos % (Auto) 3.8 % 06/19/21 02:50 Baso % (Auto) 0.8 % 06/19/21 02:50 Neut # (Auto) 4.98 10^3/uL (1.8-7.7) 06/19/21 02:50 Lymph # (Auto) 3.6 10^3/uL (0.8-4.8) 06/19/21 02:50 Alfalfa # (Auto) 0.7 10^3/uL (0.2-0.9) 06/19/21 02:50 Eos # (Auto) 0.4 10^3/uL (0.0-0.8) 06/19/21 02:50 Baso # (Auto) 0.1 10^3/uL (0.0-0.1) 06/19/21 02:50 Nucleated RBC % (auto) 0 % 06/19/21 02:50 Nucleated RBCs # 0.0 /100WBC 06/19/21 02:50 D-Dimer 0.69 ug/mIFEU (0-0.59) H 06/18/21 04:16 Sodium 138 mmol/L (136-145) 06/19/21 02:50 Potassium 3.6 mmol/L (3.5-5.1) 06/19/21 02:50 Chloride 104 mmol/L (98-107) 06/19/21 02:50 Carbon Dioxide 22 mmol/L (22-29) 06/19/21 02:50 Anion Gap 15.6 (5-19) 06/19/21 02:50 BUN 17 mg/dL (6-20) 06/19/21 02:50 Creatinine 0.5 mg/dL (0.5-0.9) 06/19/21 02:50 GFR Calculation 127.2 mL/min (90-130) 06/19/21 02:50 Glucose 335 mg/dL (65-115) H 06/19/21 02:50 POC Glucose 295 mg/dL (70-110) H 06/19/21 06:32 Calculated Osmolality 301 mOsm/kg (285-295) H 06/19/21 02:50 Calcium 8.6 mg/dL (8.5-10.5) 06/19/21 02:50 Magnesium 1.9 mg/dL (1.7-2.3) 06/19/21 02:50 Total Bilirubin 0.3 mg/dL (0.15-1.2) 06/19/21 02:50 AST 9 U/L (0-32) 06/19/21 02:50 ALT 8 U/L (0-33) 06/19/21 02:50 Alkaline Phosphatase 114 IU/L (35-105) H 06/19/21 02:50 Troponin T Baseline 12 ng/L (0-10) H 06/18/21 03:56 Troponin T 120 Minute 9.84 ng/L (0-10) 06/18/21 06:48 Delta Troponin T -2.16 ABS# (0-10) L 06/18/21 06:48 Troponin T Hi Sens 6Hr 9.80 ng/L (0-10) 06/18/21 09:47 Troponin T Hi Sens 6Hr Delta -2.20 ng/L (0-12) L 06/18/21 09:47 NT-Pro-B Natriuret Pep 2673 pg/mL (0-125) H 06/18/21 04:54 Total Protein 6.3 g/dL (6.6-8.7) L 06/19/21 02:50 Albumin 3.2 g/dL (3.5-5.2) L 06/19/21 02:50 Globulin 3.1 g/dL (1.3-4.6) 06/19/21 02:50 TSH 3.02 uIU/mL (0.27-4.20) 06/18/21 04:54 Urine Color Yellow (Yellow) 06/18/21 06:10 Urine Appearance Hazy (CLEAR) A 06/18/21 06:10 Urine pH 6 (5-7) 06/18/21 06:10 Ur Specific [place] 1.015 (1.005-1.030) 06/18/21 06:10 Urine Protein Trace (Negative) 06/18/21 06:10 Urine Glucose (UA) 4+ (Normal) H 06/18/21 06:10 Urine Ketones Negative (Negative) 06/18/21 06:10 Urine Blood Neg (Negative) 06/18/21 06:10 Urine Nitrate Negative (Negative) 06/18/21 06:10 Urine Bilirubin Neg (Negative) 06/18/21 06:10 Urine Urobilinogen Norm mg/dL (Negative) 06/18/21 06:10 Ur Leukocyte Esterase 2+ (Negative) H 06/18/21 06:10 Urine RBC None /hpf (0-2) 06/18/21 06:10 Urine WBC 15-25 /hpf (0-5) H 06/18/21 06:10 Ur Squamous Epith Cells 25-40 /hpf (0-5) H 06/18/21 06:10 Calcium Oxalate Crystal 0-4 /hpf H 06/18/21 06:10 Amorphous Sediment Not Reportable 06/18/21 06:10 Urine Bacteria 3+ /hpf (NONE) H 06/18/21 06:10 Vitals Last Vital Signs Temp 97.6 F 06/19/21 07:39 Pulse 82 06/19/21 07:39 Resp 16 06/19/21 07:39 BP 136/79 06/19/21 07:39 Pulse Ox 94 06/19/21 07:39 Discharge Plan Discharge Patient Disposition: Home Condition: Stable Prescriptions: New magnesium oxide 400 mg magnesium capsule 400 mg PO DAILY Qty: 30 0RF diltiazem HCl [DILT-XR] 180 mg Capsule,Ext.Rel 24h Degradable 180 mg PO DAILY Qty: 30 0RF Continued albuterol sulfate 2.5 mg /3 mL (0.083 %) solution for nebulization 2.5 mg inhalation QID PRN (Reason: shortness of breath or wheezing) 30 Days Qty: 75 2RF (DME) OneTouch Ultra Test Strip See Rx Instructions .Route Qty: 100 5RF Rx Instructions: use 1 strip 3 time day (DME) blood-glucose meter [ExogenesisTouch Ultra2 Meter] Kit See Rx Instructions .Route Qty: 1 0RF Rx Instructions: As directed (DME) lancets [OneTouch Delica Plus Lancet] 33 gauge misc See Rx Instructions .Route Qty: 100 5RF Rx Instructions: use one each 3 times day as needed albuterol sulfate [ProAir HFA] 90 mcg/actuation HFA aerosol inhaler 2 puff INHALATION Q4H PRN (Reason: Shortness Of Breath Or Wheezing) 30 Days Qty: 6.7 2RF duloxetine 60 mg capsule,delayed release(DR/EC) 60 mg PO BID Qty: 60 2RF furosemide [Lasix] 20 mg tablet 20 mg PO QAM Qty: 30 2RF Xarelto 20 mg tablet 20 mg PO BEDTIME 30 Days Qty: 30 2RF (DME) pen needle, diabetic 33 gauge x 5/32 needle See Rx Instructions .ROUTE .MEDSUPPLY Qty: 200 5RF Rx Instructions: 5 times day insulin aspart U-100 [Novolog Flexpen U-100 Insulin] 100 unit/mL (3 mL) insulin pen See Rx Instructions SUBCUT TID Qty: 15 0RF Rx Instructions: sliding scale three times daily prn 110-129=3U 130-150=6U 151-200=9U 201-250=12U 251-300=15U 301-350=18U 351-400=21U >400=24U flecainide 100 mg tablet 100 mg PO Q12H Qty: 180 2RF loperamide [Anti-Diarrheal (loperamide)] 2 mg Tablet 2 - 4 mg PO PRN PRN (Reason: Diarrhea) 0RF acetaminophen [Tylenol Extra Strength] 500 mg Tablet 1,000 mg PO TID@07,15,23 0RF fluticasone propion-salmeterol [Advair Diskus] 250-50 mcg/dose blister with device 1 inh inhalation BEDTIME 0RF Levemir FlexTouch U-100 Insuln 100 unit/mL (3 mL) insulin pen 50 unit SUBCUT BEDTIME 0RF tizanidine 2 mg tablet 2 mg PO BEDTIME PRN (Reason: Muscle Spasm) 0RF hydrocodone-acetaminophen 5-325 mg tablet 1 tab PO Q8H PRN (Reason: pain) Qty: 20 0RF valerian root 500 mg Capsule 500 - 1,000 mg PO BEDTIME 0RF Chlorpheniramine Allergy 4 mg Tablet 4 mg PO TID 0RF glipizide 10 mg tablet 10 mg PO BID 0RF Charmaine-C 500 mg Tablet 1,000 mg PO BEDTIME 0RF ibuprofen 200 mg Tablet 800 mg PO BEDTIME 0RF Nitrostat 0.4 mg Tablet, Sublingual 0.4 mg SUBLINGUAL Q5M PRN (Reason: Chest Pain) 0RF Rx Instructions: do not exceed 3 doses per episode atorvastatin 20 mg tablet 20 mg PO BEDTIME 0RF lisinopril 20 mg tablet 20 mg PO BEDTIME 0RF trazodone 100 mg tablet 100 mg PO BEDTIME PRN (Reason: Sleep) 0RF Protonix 40 mg tablet,delayed release (DR/EC) 40 mg PO DAILY@11 0RF Victoza 3-Macario 0.6 mg/0.1 mL (18 mg/3 mL) pen injector 0.6 mg SUBCUT BEDTIME 0RF Discontinued diltiazem HCl 120 mg capsule,extended release 24hr 120 mg PO QAM 0RF Discharge Orders: Discharge Order (Routine); Ordered 06/19/21 Ordered By: Adriano Gore Referrals: Ángel Vance FNP-C [Primary Care Provider] - 4-7 days (BMP on follow up) Discharge Diet: Cardiac and Diabetic Discharge Activity: Increase activity as tolerated Patient Instructions: Opioid Safety Activity Restrictions/Additional Instructions: Follow-up with your crossbar switch adjuster as soon as possible regarding your recurrent SVT Discharge Attestations Time Spent in Discharge Care*: greater than 30 min Quality Metrics Clinical Quality Measures [ No reported AMI, CVA or VTE this stay] Coding Level of Care Code Acute Chg FW DC note Diagnoses SVT (supraventricular tachycardia) I47.1 Atrial fibrillation I48.0 Atrial fibrillation type: paroxysmal
[2021-06-19 10:09] VITALS: BP 136/79; PULSE 82; RESP 16; TEMP 36.4; O2SAT 94
[2021-06-19] MEDS: flecainide 100 mg Tablet PO (11:11)
--- NOTE | 2021-06-19 12:00 | PC.NURSE ---
Discharge Note Patient discharged to Home via private vehicle accompanied by family. Discharge instructions reviewed with patient and/or metals sales representative. Mobile pharmacy medications and/or prescriptions provided. Belongings/home medications returned.
== END 2021-06-19 12:00 | disposition home or self-care (01) ==
LOC: ER 11:52 → CSU 17:27
PROVIDERS: Admitting Provider Internal Medicine; Emergency Provider Emergency Medicine; PCP Nurse Practitioner; Visit Provider Internal Medicine
DX: I47.1 Supraventricular tachycardia (principal); I48.0 Paroxysmal atrial fibrillation; I10 Essential (primary) hypertension; J44.9 Chronic obstructive pulmonary disease, unspecified; E11.65 Type 2 diabetes mellitus with hyperglycemia; E78.5 Hyperlipidemia, unspecified; Z79.4 Long term (current) use of insulin; F17.210 Nicotine dependence, cigarettes, uncomplicated
CPT/HCPCS: 36415; 36416; 71045; 80053; 81001; 82962; 83735; 83880; 84443; 84484; 85025; 85378; 93005; 93306; 96365; 96366; 96367; 96372; 96375; 96376; 99285; G0378; J1160; J1815; J3475; J3490; J7030; J7040

== ENCOUNTER → 2021-06-20 10:21 | Outpatient (BNVA) | payer MEDICAID, SELFPAY | PROVIDERS: PCP Nurse Practitioner; Visit Provider Thoracic Surgery (Cardiothoracic Vascular Surgery) | DX: E11.621 Type 2 diabetes mellitus with foot ulcer (principal); I96 Gangrene, not elsewhere classified; T87.81 Dehiscence of amputation stump; L97.511 Non-pressure chronic ulcer of other part of right foot limited to breakdown of skin; F17.210 Nicotine dependence, cigarettes, uncomplicated | CPT/HCPCS: 97597; A6206; A6250 ==

== ENCOUNTER → 2021-06-22 08:07 | Outpatient (BNVA) | payer MEDICAID, SELFPAY | PROVIDERS: PCP Nurse Practitioner | DX: Z11.52 Encounter for screening for COVID-19 (principal); Z20.822 Contact with and (suspected) exposure to COVID-19; Z01.812 Encounter for preprocedural laboratory examination | CPT/HCPCS: 87635 ==

== ENCOUNTER 2021-07-02 06:13 | Outpatient (CLI) | payer MEDICAID, SELFPAY ==
--- NOTE | 2021-07-02 06:15 | US_ITS ---
WS: [id number] RIGHT UPPER QUADRANT ULTRASOUND HISTORY: K80.20 - Calculus of gallbladder without cholecystitis COMPARISON: None available. Liver: 17.6 cm in length. Mildly enlarged liver with coarse echotexture. No mass identified. Portal Vein: Normal hepatopetal flow with monophasic waveform. Gallbladder: Normally distended gallbladder. Small stones noted within the gallbladder. No pericholec ystic fluid or gallbladder wall thickening. CBD: 0.2 cm Pancreas: Normal size and echogenicity. Right kidney: 10.6 cm in length. Normal size and echogenicity. No hydronephrosis or mass. Aorta and IVC: Unremarkable abdominal aorta and IVC. No ascites. US/US gall bladder [id number] IMPRESSION: 1. Cholelithiasis without acute cholecystitis. 2. Mild hepatic steatosis and hepatomegaly.
== END 2021-07-02 06:14 | disposition home or self-care (01) ==
LOC: RAD 06:15
PROVIDERS: PCP Nurse Practitioner; Visit Provider Surgery
DX: K80.20 Calculus of gallbladder without cholecystitis without obstruction (principal); K76.0 Fatty (change of) liver, not elsewhere classified; R16.0 Hepatomegaly, not elsewhere classified
CPT/HCPCS: 76705

== ENCOUNTER → 2021-07-04 09:42 | Outpatient (BNVA) | payer MEDICAID, SELFPAY | PROVIDERS: PCP Nurse Practitioner; Visit Provider Thoracic Surgery (Cardiothoracic Vascular Surgery) | DX: E11.621 Type 2 diabetes mellitus with foot ulcer (principal); I96 Gangrene, not elsewhere classified; L97.421 Non-pressure chronic ulcer of left heel and midfoot limited to breakdown of skin; L97.511 Non-pressure chronic ulcer of other part of right foot limited to breakdown of skin; Z89.421 Acquired absence of other right toe(s) | CPT/HCPCS: 97597 ==

== ENCOUNTER 2021-07-09 12:57 | Emergency (ER) | payer MEDICAID, SELFPAY ==
--- NOTE | 2021-07-09 12:59 | ECG_ITS ---
[facility] Test Date: 2021-07-09 Pat Name: Soni Head Department: Room: Gender: Female Clinic Scheduler: : 1965 Requested By: Eric Woody Order Number: [id number] Eric MD: Nan Coe M.D. Measurements Intervals [place] Rate: 90 P: 49 AK: 163 QRS: 58 QRSD: 109 T: 52 QT: 366 QTc: 450 Interpretive Statements SINUS RHYTHM POSSIBLE ANTERIOR MYOCARDIAL INFARCTION , OF INDETERMINATE AGE [30 ms Q WAVE IN V3/V4, OR R < 0.2 mV IN V4] Compared to ECG 06/18/2021 09:36:36 No significant changes Electronically Signed On 07-10-2021 7:27:42 CDT by Nan Coe M.D. [email or web address]
[2021-07-09 13:05] VITALS: BP 132/73; PULSE 97; RESP 16; TEMP 37.1; O2SAT 100; BMI 36.6
--- NOTE | 2021-07-09 13:09 | W.ED.GENADLT ---
HPI - General Adult General: Chief complaint: Arrhythmia/Palpitations Stated complaint: CP, SOB, SVT Time Seen by Provider: 07/09/21 12:58 History of Present Illness: Patient is a 56-year-old female with a history of paroxsymal atrial fibrillation on Eliquis, COPD, diabetes, hyperlipidemia presents to the emergency room with concerns for SVT. Patient tells me that earlier this morning, patient felt palpitation noted heart rate was in the 150s. EMS was called, in route, patient received adenosine 6 mg adenosine 12 mg with improvement heart rate to the 90s. EMS rescue EKG showed SVT with heart rates in the 150s to 170s. On arrival, patient is noted to be in NSR with heart rate of 97. Patient reports that she has been having chest pain intermittent for last month. Patient tells me that she takes 180 mg of diltiazem daily for prevention of SVT. Patient was recently evaluated on 06/18/2021 was admitted to hospital for atrial fibrillation. Patient denies any leg swelling, pleuritic chest pain, recent immobilization or surgery. Patient denies any active chest pain in the emergency room. Onset:earlier today Duration:ongoing Location:home Severity:moderate Associated symptoms: Reports palpitations; Deny chest pain, dyspnea, nausea, rash or vomiting Review of Systems Const: Denies: fever(s) or chills Eyes: Denies: change in vision ENMT: Denies: mouth pain Card: Reports: palpitations; Denies: chest pain Resp: Denies: dyspnea or non-productive cough GI: Denies: abdominal pain, nausea, vomiting or diarrhea : Denies: dysuria Musc: Denies: extremity pain Skin/Breast: Denies: rash or new lesions Neuro: Denies: weakness in extremities Psych: Reports: other (Normal mood) Tio/Lymph: Denies: easy bruising PFSH ED PFSH: Medical History Asthma Atrial fibrillation Benign hypertension Breast cancer, left breast Breast cancer, right COPD (chronic obstructive pulmonary disease) COPD exacerbation Diabetes mellitus with hyperglycemia, with long-term current use of insulin Dyslipidemia Gastroesophageal reflux disease Open wound of foot Right great toe SVT (supraventricular tachycardia) Ulcer of foot, chronic Surgical History H/O bilateral mastectomy History of appendectomy History of hysterectomy Status post left breast lumpectomy Status post right breast lumpectomy Family History Father CAD (coronary artery disease) CHF (congestive heart failure) Hyperlipidemia Hypertension Lung disease Stroke Other Diabetes Denies family history of Clotting disorder Dementia Psychiatric illness Chronic kidney disease (CKD) Suicide Anesthesia complication Bleeding disorder Family history of premature coronary artery disease Cancer Social History Smoking and tobacco status: current every day smoker cigarettes Packs smoked per day: 2 Second hand smoke exposure: Yes Smoking risk assessment/counseling performed?: Yes Alcohol intake: never Desire information about alcohol rehabilitation?: No Counseling given: No Desire information about substance/drug rehabilitation?: No Counseling given: No Adopted: No Caregiver/support person: No Lives independently: Yes Household members: family Housing: House Marital status: Single Number of children: 1 service: No Current occupational status: employed History of recent travel: No Current gender identity: Female Physical Exam Const: COMMON NORMALS: alert HENMT: COMMON NORMALS: atraumatic HEAD & SCALP: atraumatic MOUTH: moist mucous membranes not abnormal Eye: COMMON NORMALS: EOMs intact bilaterally and conjunctivae normal CONJUNCTIVA: Yes conjunctivae normal Neck/C-Spine: COMMON NORMALS: full ROM and supple Resp: COMMON NORMALS: normal respiratory effort and clear to auscultation bilaterally AUSCULTATION: clear to auscultation bilaterally Cardio: COMMON NORMALS: regular rate RATE: regular rate OTHER: 2+ radial pulses b/l GI: COMMON NORMALS: Soft to palpation and non-tender PALPATION: Yes Soft to palpation Extremity: COMMON NORMALS: full ROM Neuro: SENSORIUM/ORIENTATION: Yes alert MOTOR EXAM: No Abnormal motor strength present and Other motor observations present (no focal motor deficits) Psych: COMMON NORMALS: speech normal SPEECH: Yes normal speech MOOD & AFFECT: Yes euthymic mood Course Vital Signs: Vital signs: Vital Signs Temperature 98.8 F 07/09/21 13:05 Pulse Rate 81 07/09/21 15:55 Respiratory Rate 19 H 07/09/21 15:55 Blood Pressure 148/93 07/09/21 15:55 Pulse Oximetry 98 07/09/21 15:55 MDM - General Adult Medical Decision Making 56-year-old female with a history of atrial fibrillation on Eliquis, COPD, SVT hypertension hyperlipidemia, diabetes who presents emergency room for concerns for palpitation and SVT en route. On arrival, patient is noticed to be in normal sinus rhythm. EKG not show any signs of ST depression or elevation of T wave inversion. Patient is not in atrial fibrillation. Troponin of 11 similar to baseline. Patient longer has any chest pain. Patient received metoprolol 5 mg IV and 50 mg p.o. for suppression. Patient has not been observed to go back into SVT while observed in the emergency room. At the present time, rest of laboratory evaluation similar to baseline. Patient has a white count of 17 K similar to baseline of 16 K. TSH/T4 within normal limit. Patient received 1 L fluid reports symptoms significant symptomatic improvement, no increased work compared to baseline, no tachycardia. Doubt ACS as patient has been having chronic chest pain, pain is not different from usual, tropoin similar to baseline, and no exertional/ACS symptoms. Patient with no complaints of chest pain will observe the emergency room. At the present time I do not suspect PE as the cause of the symptoms as patient has been chronically on anticoagulation. It is unclear what is the cause of patient's SVT but however given increased frequency, patient's did follow-up with Dr. Valladares for reassessment. She instructed to continue taking diltazem and following up with Dr. Valladares early in the next few days for reassessment Disposition: Discharge. Patient counseled regarding diagnostic impression, treatment plan. Patient given ED strict return precautions to return for continuation, worsening, or development of new symptoms. Instructed to f/u w/ PCP regarding symptoms today. Patient verbalized understanding. Lab Data : 07/09/21 14:35 07/09/21 14:35 Laboratory Results WBC 17.0 10^3/uL (4.0-10.0) H 07/09/21 14:35 RBC 5.76 10^6/uL (4.1-5.3) H 07/09/21 14:35 Hgb 16.9 g/dL (11.5-15.3) H 07/09/21 14:35 Hct 50.4 % (37.0-47.0) H 07/09/21 14:35 MCV 87.5 fl (81-99) 07/09/21 14:35 MCH 29.3 pg (28.0-34.0) 07/09/21 14:35 MCHC 33.5 g/dL (30.0-36.0) 07/09/21 14:35 RDW 13.4 % (12.1-15.1) 07/09/21 14:35 Plt Count 324 10^3/cmm (130-400) 07/09/21 14:35 MPV 12.0 fL (7.4-10.4) H 07/09/21 14:35 Neut % (Auto) 63.2 % 07/09/21 14:35 Lymph % (Auto) 24.9 % 07/09/21 14:35 [place] % (Auto) 9.5 % 07/09/21 14:35 Eos % (Auto) 1.3 % 07/09/21 14:35 Baso % (Auto) 0.6 % 07/09/21 14:35 Neut # (Auto) 10.77 10^3/uL (1.8-7.7) H 07/09/21 14:35 Lymph # (Auto) 4.2 10^3/uL (0.8-4.8) 07/09/21 14:35 [place] # (Auto) 1.6 10^3/uL (0.2-0.9) H 07/09/21 14:35 Eos # (Auto) 0.2 10^3/uL (0.0-0.8) 07/09/21 14:35 Baso # (Auto) 0.1 10^3/uL (0.0-0.1) 07/09/21 14:35 Nucleated RBC % (auto) 0 % 07/09/21 14:35 Nucleated RBCs # 0.0 /100WBC 07/09/21 14:35 Sodium 138 mmol/L (136-145) 07/09/21 14:35 Potassium 4.1 mmol/L (3.5-5.1) 07/09/21 14:35 Chloride 98 mmol/L (98-107) 07/09/21 14:35 Carbon Dioxide 29 mmol/L (22-29) 07/09/21 14:35 Anion Gap 15.1 (5-19) 07/09/21 14:35 BUN 8 mg/dL (6-20) 07/09/21 14:35 Creatinine 0.6 mg/dL (0.5-0.9) 07/09/21 14:35 GFR Calculation 103.0 mL/min (90-130) 07/09/21 14:35 Glucose 320 mg/dL (65-115) H 07/09/21 14:35 Calculated Osmolality 297 mOsm/kg (285-295) H 07/09/21 14:35 Calcium 8.5 mg/dL (8.5-10.5) 07/09/21 14:35 Magnesium 1.8 mg/dL (1.7-2.3) 07/09/21 14:35 Total Bilirubin 0.5 mg/dL (0.15-1.2) 07/09/21 14:35 AST 7 U/L (0-32) 07/09/21 14:35 ALT 10 U/L (0-33) 07/09/21 14:35 Alkaline Phosphatase 125 IU/L (35-105) H 07/09/21 14:35 Troponin T Baseline 11 ng/L (0-10) H 07/09/21 14:35 Total Protein 6.6 g/dL (6.6-8.7) 07/09/21 14:35 Albumin 3.8 g/dL (3.5-5.2) 07/09/21 14:35 Globulin 2.8 g/dL (1.3-4.6) 07/09/21 14:35 Lipase 23 U/L (13-60) 07/09/21 14:35 TSH 1.80 uIU/mL (0.27-4.20) 07/09/21 14:35 Free T4 1.18 ng/dL (0.82-1.77) 07/09/21 14:35 Discharge Plan Discharge Patient Disposition: Home Clinical Impression: SVT (supraventricular tachycardia) Condition: Stable Prescriptions: No Action albuterol sulfate 2.5 mg /3 mL (0.083 %) solution for nebulization 2.5 mg inhalation QID PRN (Reason: shortness of breath or wheezing) 30 Days Qty: 75 2RF (DME) OneTouch Ultra Test Strip See Rx Instructions .Route Qty: 100 5RF Rx Instructions: use 1 strip 3 time day (DME) blood-glucose meter [OneTouch Ultra2 Meter] Kit See Rx Instructions .Route Qty: 1 0RF Rx Instructions: As directed (DME) lancets [OneTouch Delica Plus Lancet] 33 gauge misc See Rx Instructions .Route Qty: 100 5RF Rx Instructions: use one each 3 times day as needed albuterol sulfate [ProAir HFA] 90 mcg/actuation HFA aerosol inhaler 2 puff INHALATION Q4H PRN (Reason: Shortness Of Breath Or Wheezing) 30 Days Qty: 6.7 2RF duloxetine 60 mg capsule,delayed release(DR/EC) 60 mg PO BID Qty: 60 2RF furosemide [Lasix] 20 mg tablet 20 mg PO QAM Qty: 30 2RF Xarelto 20 mg tablet 20 mg PO BEDTIME 30 Days Qty: 30 2RF (DME) pen needle, diabetic 33 gauge x 5/32 needle See Rx Instructions .ROUTE .MEDSUPPLY Qty: 200 5RF Rx Instructions: 5 times day insulin aspart U-100 [Novolog Flexpen U-100 Insulin] 100 unit/mL (3 mL) insulin pen See Rx Instructions SUBCUT TID Qty: 15 0RF Rx Instructions: sliding scale three times daily prn 110-129=3U 130-150=6U 151-200=9U 201-250=12U 251-300=15U 301-350=18U 351-400=21U >400=24U flecainide 100 mg tablet 100 mg PO Q12H Qty: 180 2RF loperamide [Anti-Diarrheal (loperamide)] 2 mg Tablet 2 - 4 mg PO PRN PRN (Reason: Diarrhea) 0RF acetaminophen [Tylenol Extra Strength] 500 mg Tablet 1,000 mg PO TID PRN (Reason: Pain) 0RF fluticasone propion-salmeterol [Advair Diskus] 250-50 mcg/dose blister with device 1 inh inhalation BEDTIME 0RF Levemir FlexTouch U-100 Insuln 100 unit/mL (3 mL) insulin pen 50 unit SUBCUT BEDTIME 0RF tizanidine 2 mg tablet 2 mg PO BEDTIME PRN (Reason: Muscle Spasm) 0RF hydrocodone-acetaminophen 5-325 mg tablet 1 tab PO Q8H PRN (Reason: pain) Qty: 20 0RF Charmaine-C 500 mg Tablet 1,000 mg PO BEDTIME 0RF Aspercreme 10 % Cream 1 applic TOPICAL TID PRN (Reason: Pain) 0RF Protonix 40 mg tablet,delayed release (DR/EC) 40 mg PO DAILY PRN (Reason: Heartburn) 0RF DILT-XR 180 mg capsule,ext.rel 24h degradable 180 mg PO QAM 0RF valerian root 500 mg Capsule 500 - 1,000 mg PO BEDTIME 0RF chlorpheniramine maleate 4 mg Tablet 4 mg PO TID PRN (Reason: Allergy Symptoms) 0RF glipizide 10 mg tablet 10 mg PO BID 0RF ibuprofen 200 mg Tablet 800 mg PO BEDTIME 0RF nitroglycerin [Nitrostat] 0.4 mg Tablet, Sublingual 0.4 mg SUBLINGUAL Q5M PRN (Reason: Chest Pain) 0RF Rx Instructions: do not exceed 3 doses per episode atorvastatin 20 mg tablet 20 mg PO BEDTIME 0RF lisinopril 20 mg tablet 20 mg PO BEDTIME 0RF trazodone 100 mg tablet 100 mg PO BEDTIME PRN (Reason: Sleep) 0RF Victoza 3-Macario 0.6 mg/0.1 mL (18 mg/3 mL) pen injector 0.6 mg SUBCUT BEDTIME 0RF Discharge Orders: Discharge ED (Routine); Ordered 07/09/21 Ordered By: Eric Woody Referrals: Ángel Vance, HEAD OF CONSERVATION-C [Primary Care Provider] - Discharge Diet: Advance as tolerated Discharge Activity: Increase activity as tolerated Patient Instructions: Tachycardia (ED) Activity Restrictions/Additional Instructions: Our rifle case repairer will have you follow-up with Dr. Valladares in the next few days. You would be expected to have a phone call with our rifle case repairer who will put you on the schedule. You can expect a call from us in the next 2-3 days. If you don't hear from us, call us back in the emergency room at [phone]. Come back to the emergency room if your chest pain worsens, have any fever or chills, worsening shortness of breath, worsening exertional lightheadedness, or any new or concerning complaints. Coding Level of Care Code ED Unhairing Inspector for Briana Fwd Exam Comprehensive
[2021-07-09] MEDS: metoprolol tartrate 1 mg/1 mL SDV 5 mL 5 MG IVP (13:12)
[2021-07-09] MEDS: metoprolol tartrate 50 mg Tablet PO (13:12)
[2021-07-09 13:16] VITALS: BP 111/77; PULSE 97; RESP 17; O2SAT 100
[2021-07-09 14:01] VITALS: BP 128/77; PULSE 86; RESP 18; O2SAT 100
[2021-07-09 14:24] VITALS: BP 118/74; PULSE 85; RESP 25; O2SAT 100
[2021-07-09 14:54] LABS: Basophils # 0.1 10^3/uL (0.0-0.1); Basophils % 0.6 %; Eosinophils # 0.2 10^3/uL (0.0-0.8); Eosinophils % 1.3 %; Hematocrit 50.4 % (37.0-47.0); Hemoglobin 16.9 g/dL (11.5-15.3); Lymphocytes # 4.2 10^3/uL (0.8-4.8); Lymphocytes % 24.9 %; Mean Corpuscular HGB Conc 33.5 g/dL (30.0-36.0); Mean Corpuscular Hemoglobin 29.3 pg (28.0-34.0); Mean Corpuscular Volume 87.5 fl (81-99); Monocytes # 1.6 10^3/uL (0.2-0.9); Monocytes % 9.5 %; Neutrophils # 10.77 10^3/uL (1.8-7.7); Neutrophils % 63.2 %; Nucleated Red Blood Cells % 0 %; Platelet Count 324 10^3/cmm (130-400); Red Blood Count 5.76 10^6/uL (4.1-5.3); Red Cell Distribution Width 13.4 % (12.1-15.1)
--- NOTE | 2021-07-09 15:01 | ECG_ITS ---
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 Measurements Intervals [place] Rate: 75 P: 45 GA: 193 QRS: 56 QRSD: 102 T: 52 QT: 393 QTc: 440 Interpretive Statements SINUS RHYTHM POSSIBLE ANTERIOR MYOCARDIAL INFARCTION , OF INDETERMINATE AGE [30 ms Q WAVE IN V3/V4, OR R < 0.2 mV IN V4] ST ELEVATION, CONSIDER INFERIOR INJURY [MARKED ST ELEVATION W/O NORMALLY INFLECTED T-WAVE IN II/aVF] ACUTE MS Compared to ECG 07/09/2021 13:11:18 ST (T wave) deviation now present Myocardial infarct finding still present Electronically Signed On 07-10-2021 19:00:17 CDT by Theodora Valladares M.D. [id number]
[2021-07-09 15:11] VITALS: BP 104/64; PULSE 74; RESP 20; O2SAT 98
[2021-07-09 15:19] LABS: Troponin(5th) Baseline 11 ng/L (0-10)
[2021-07-09 15:29] LABS: Alanine Aminotransferase 10 U/L (0-33); Albumin Level 3.8 g/dL (3.5-5.2); Alkaline Phosphatase 125 IU/L (35-105); Anion Gap 15.1 (5-19); Aspartate Amino Transferase 7 U/L (0-32); Blood Urea Nitrogen 8 mg/dL (6-20); Calcium 8.5 mg/dL (8.5-10.5); Carbon Dioxide 29 mmol/L (22-29); Chloride 98 mmol/L (98-107); Free T4 Free Thyroxine 1.18 ng/dL (0.82-1.77); Globulin 2.8 g/dL (1.3-4.6); Glucose 320 mg/dL (65-115); Lipase 23 U/L (13-60); Magnesium 1.8 mg/dL (1.7-2.3); Osmolality Calculated 297 mOsm/kg (285-295); Potassium 4.1 mmol/L (3.5-5.1); Sodium 138 mmol/L (136-145); Total Bilirubin 0.5 mg/dL (0.15-1.2); Total Protein 6.6 g/dL (6.6-8.7)
[2021-07-09 15:55] VITALS: BP 148/93; PULSE 81; RESP 19; O2SAT 98
--- NOTE | 2021-07-10 11:48 | DCPLANNER ---
Addendum entered by Joslyn Grant 08/01/21 20:21: Patient had a follow up appointment scheduled with [facility] - patient did attend appointment. Addendum entered by Joslyn Grant 07/11/21 14:26: Patient has a follow up appointment scheduled for Friday, July 16, 2021 at 10:[address] Valladares. Original Note: enterprise manager had message to schedule a follow up appointment for patient with [facility]. enterprise manager sent patients information to the front office staff at [facility]. Patients information will be printed and reviewed. Clinic will notify case resource manager of the scheduled appointment. enterprise manager will call patient with appointment information.
== END 2021-07-09 16:20 | disposition home or self-care (01) ==
PROVIDERS: Emergency Provider Emergency Medicine; PCP Nurse Practitioner
DX: I47.1 Supraventricular tachycardia (principal); J44.9 Chronic obstructive pulmonary disease, unspecified; I10 Essential (primary) hypertension; E78.5 Hyperlipidemia, unspecified; F17.210 Nicotine dependence, cigarettes, uncomplicated; I48.0 Paroxysmal atrial fibrillation; Z79.01 Long term (current) use of anticoagulants; Z79.4 Long term (current) use of insulin
CPT/HCPCS: 80053; 83690; 83735; 84439; 84443; 84484; 85025; 93005; 96374; 99283; J3490

== ENCOUNTER → 2021-07-11 08:44 | Outpatient (BNVA) | payer MEDICAID, SELFPAY | PROVIDERS: PCP Nurse Practitioner; Visit Provider Nurse Practitioner Family | DX: E11.621 Type 2 diabetes mellitus with foot ulcer (principal); L97.511 Non-pressure chronic ulcer of other part of right foot limited to breakdown of skin; I96 Gangrene, not elsewhere classified; L97.421 Non-pressure chronic ulcer of left heel and midfoot limited to breakdown of skin; F17.210 Nicotine dependence, cigarettes, uncomplicated | CPT/HCPCS: 11042 ==

== ENCOUNTER 2021-07-11 09:32 | Outpatient (CLI) | payer MEDICAID, SELFPAY ==
--- NOTE | 2021-07-11 09:37 | XR_ITS ---
WS: [id number] Exam: XR foot LT min 3V* [id number] Date/Time of Exam: 07/11/2021 9:41 AM Reason For Exam: L FOOT ULCER Comparison 09/10/2019. There is a degenerative change, bony sclerosis and fragmentation of the tarsal bones and proximal met atarsals suggesting Charcot's neuropathy. No acute fracture is seen. Soft tissue ulceration of the pl snehal aspect of the forefoot is noted. No sign of obvious osteomyelitis. Generalized edema of the sebastián t. XR/XR foot LT min 3V* [id number] IMPRESSION: 1. No acute fracture or dislocation. 2. Bony changes in the midfoot suggesting Charcot's neuropathy. These changes a re progressive. 3. Skin ulceration and edema along the plantar aspect of the forefoot. Generali zed edema of the foot.
== END 2021-07-11 09:33 | disposition home or self-care (01) ==
PROVIDERS: PCP Nurse Practitioner; Visit Provider Nurse Practitioner Family
DX: L97.529 Non-pressure chronic ulcer of other part of left foot with unspecified severity (principal)
CPT/HCPCS: 11042; 73630; A6250

== ENCOUNTER → 2021-07-16 09:21 | Outpatient (BNVA) | payer MEDICAID, SELFPAY | PROVIDERS: PCP Nurse Practitioner; Visit Provider Nurse Practitioner Family | DX: I47.1 Supraventricular tachycardia (principal); F17.210 Nicotine dependence, cigarettes, uncomplicated; I10 Essential (primary) hypertension; E11.65 Type 2 diabetes mellitus with hyperglycemia; Z79.4 Long term (current) use of insulin | CPT/HCPCS: 80053; 80061; 81000; 83036; 85025; 93005; 93270; 99214 ==

== ENCOUNTER → 2021-07-18 08:45 | Outpatient (BNVA) | payer MEDICAID, SELFPAY | PROVIDERS: PCP Nurse Practitioner; Visit Provider Thoracic Surgery (Cardiothoracic Vascular Surgery) | DX: E11.621 Type 2 diabetes mellitus with foot ulcer (principal); L97.521 Non-pressure chronic ulcer of other part of left foot limited to breakdown of skin; I96 Gangrene, not elsewhere classified; F17.210 Nicotine dependence, cigarettes, uncomplicated | CPT/HCPCS: 72072; 97597 ==

== ENCOUNTER → 2021-07-24 10:09 | Outpatient (BNVA) | payer MEDICAID, SELFPAY | PROVIDERS: PCP Nurse Practitioner; Visit Provider Podiatrist Foot & Ankle Surgery | DX: E11.610 Type 2 diabetes mellitus with diabetic neuropathic arthropathy (principal); L97.522 Non-pressure chronic ulcer of other part of left foot with fat layer exposed; E11.42 Type 2 diabetes mellitus with diabetic polyneuropathy; L60.3 Nail dystrophy; Z89.411 Acquired absence of right great toe; F17.210 Nicotine dependence, cigarettes, uncomplicated | CPT/HCPCS: 99203 ==

== ENCOUNTER 2021-07-24 18:32 | Emergency (ER) | payer MEDICAID, SELFPAY ==
[2021-07-24 18:36] VITALS: BP 102/77; PULSE 101; RESP 16; TEMP 36.7; O2SAT 100; BMI 35.9
--- NOTE | 2021-07-24 18:38 | ED_ITS ---
HPI - Arrhythmia/Palpitations General: Chief Complaint: Chest Pain Stated Complaint: SVT Time Seen by Provider: 07/24/21 18:38 History of Present Illness: Ms. Head is a 56-year-old lady with complex past medical history including hypertension, hyperlipidemia, diabetes, atrial f ibrillation, COPD with chronic hypoxic respiratory failure, and episodes of SVT who presents to the emergency department due to SVT episode. She reports symptom onset approximately 5 hours prior to arrival, symptoms started at rest and she noticed a racing heart in the 150s. She notes associated shortness of breath and lightheadedness with these episodes. She attempted to take, as directed, extra dose of diltiazem without improvement. Additionally she tried rest, drinking fluids, and vagal maneuvers without success. EMS found the patient to be in SVT and administered 6 mg followed by 12 mg adenosine with successful conversion after the 12 mg. Subsequently she developed severe left anterior chest pain with radiation through to the back. This is not typical of her previous episodes of SVT. She is in the process of being evaluated and referred for electrophysiology studies however has not had an appointment yet. Overall intensity symptoms moderate to severe. Improved with nitroglycerin. No other specific changes in health, exacerbating, or alleviating factors identified. Onset (ago): hour(s) Duration: constant Severity: severe Arrhythmia history: atrial fibrillation and SVT Associated symptoms: Reports short of breath Treatments prior to arrival: vagal maneuvers and adenosine Review of Systems General: Reports: 10 or more systems reviewed and unremarkable except in HPI and below PFSH ED PFSH: Medical History Asthma Atrial fibrillation Benign hypertension Breast cancer, left breast Breast cancer, right COPD (chronic obstructive pulmonary disease) COPD exacerbation Diabetes mellitus with hyperglycemia, with long-term current use of insulin Dyslipidemia Gastroesophageal reflux disease Open wound of foot Right great toe Osteoarthritis of spine SVT (supraventricular tachycardia) Ulcer of foot, chronic Surgical History H/O bilateral mastectomy History of appendectomy History of hysterectomy Status post left breast lumpectomy Status post right breast lumpectomy Family History Father CAD (coronary artery disease) CHF (congestive heart failure) Hyperlipidemia Hypertension Lung disease Stroke Other Diabetes Denies family history of Clotting disorder Dementia Psychiatric illness Chronic kidney disease (CKD) Suicide Anesthesia complication Bleeding disorder Family history of premature coronary artery disease Cancer Social History Smoking and tobacco status: current every day smoker cigarettes Packs smoked per day: 2 Second hand smoke exposure: Yes Smoking risk assessment/counseling performed?: Yes Alcohol intake: never Desire information about alcohol rehabilitation?: No Counseling given: No Desire information about substance/drug rehabilitation?: No Counseling given: No Adopted: No Caregiver/support person: No Lives independently: Yes Household members: family Housing: House Marital status: Single Number of children: 1 service: No Current occupational status: employed History of recent travel: No Current gender identity: Female Physical Exam Const: COMMON NORMALS: alert GENERAL APPEARANCE: cooperative and well developed HENMT: COMMON NORMALS: normocephalic and atraumatic HEAD & SCALP: normoceph alic and atraumatic Eye: COMMON NORMALS: conjunctivae normal CONJUNCTIVA: Yes conjunctivae normal SCLERA: sclerae normal Neck/C-Spine: COMMON NORMALS: supple GENERAL: Yes trachea midline Resp: COMMON NORMALS: normal respiratory effort EFFORT & INSPECTION: Yes able to speak in complete sentences Cardio: COMMON NORMALS: regular rate and regular rhythm RATE: regular rate RHYTHM: regular rhythm GI: COMMON NORMALS: Soft to palpation PALPATION: Yes Soft to palpation and No Tenderness to palpation present (GI) PERCUSSION: normal to percussion Extremity: GENERAL: Yes normal exam except as noted and No edema Neuro: COMMON NORMALS: moves all extremities SENSORIUM/ORIENTATION: Yes alert and No Orientation impaired Psych: COMMON NORMALS: mental status grossly normal and Normal thought process present THOUGHT PROCESS: Normal thought process present Course ED course: - Patient was seen and evaluated by me at bedside - Patient placed on cardiac monitors, IV access obtained - Initial evaluation notable for exam as above - Labs and xrays personally interpreted by me - Fluids, analgesia given - Labs notable for leukocytosis of uncertain etiology, mild hemoconcentration. Metabolic panel with no acute electrolyte derangement to explain symptoms. Delta troponin negative. TSH elevated but with normal free T4. Given new element of chest pain in conjugation with tachyarrhythmia including pleuritic component D-dimer warranted to mildly elevated. - Imaging notable for no lobar consolidation or pneumothorax on chest x-ray. CT scan negative for pulmonary embolism. -Discussed with cardiology on-call, challenging situation as ultimately the patient needs electrophysiology evaluation. Plan to increase flecainide with EKG in 1 week and cardiology follow-up in 1 to 2 weeks. This was discussed with the patient including importance of followup ekg - Upon serial reexamination after treatment the patient was improved - Based on patient history, evaluation, and testing as interpreted the most likely cause of the patient's condition is SVT with termination achieved by EMS. - The results of ED evaluation were discussed with the patient including prescriptions and/or symptomatic cares (if applicable) including appropriate and responsible use, followup plan, and return precautions. The patient verbalized understanding and felt safe for discharge. - Patient discharged in satisfactory condition. Note: Click bubbles or prepopulated gipson in note writing are used for assistance with data collection and billing and are inherently more limited than narrative and other text portions of this note. Please use narrative for additional clinical history and defer to narrative/free test for any case of contradictory information. If information appears in only free text or click bubble it should be considered present or absent as reported. Please contact note communications writer for clarifications of clinical information or contradictory information. MDM is a brief summary, contradictory or erroneous seeming information should be clarified and full note should be reviewed. Vital Signs: Vital signs: Vital Signs Temperature 98.1 F 07/24/21 18:36 Pulse Rate 83 07/24/21 23:10 Respiratory Rate 13 07/24/21 23:10 Blood Pressure 156/78 07/24/21 23:10 Pulse Oximetry 99 07/24/21 23:10 MDM - Arrhythmia/Palpitations Medical Decision Making 56-year-old lady with complex past cardiac history presenting to the emergency department due to SVT. Treated with adenosine by EMS. Discussed with cardiology. Discharged with cardiology follow-up and EKG in 1 week with medication increase. Patient requires electrophysiology follow-up and will call in the morning. Medical Records I reviewed the patient's medical records. Lab Data I reviewed the patient's lab results. : 07/24/21 19:10 07/24/21 19:10 Radiology Impressions Chest X-Ray 07/24/21 18:41 IMPRESSION: No acute cardiopulmonary abnormality. Electronic device projecting in the mediastinum is likely external to the patient, correlate clinically. Chest CTA 07/24/21 21:04 IMPRESSION: 1. No evidence of pulmonary embolism or aortic dissection. 2. Atherosclerotic vascular disease including coronary artery disease. 3. Old granulomatous disease. 4. Previous bilateral mastectomies. Laboratory Results WBC 14.4 10^3/uL (4.0-10.0) H 07/24/21 19:10 RBC 5.80 10^6/uL (4.1-5.3) H 07/24/21 19:10 Hgb 17.1 g/dL (11.5-15.3) H 07/24/21 19:10 Hct 49.6 % (37.0-47.0) H 07/24/21 19:10 MCV 85.5 fl (81-99) 07/24/21 19:10 MCH 29.5 pg (28.0-34.0) 07/24/21 19:10 MCHC 34.5 g/dL (30.0-36.0) 07/24/21 19:10 RDW 13.1 % (12.1-15.1) 07/24/21 19:10 Plt Count 389 10^3/cmm (130-400) 07/24/21 19:10 MPV 11.7 fL (7.4-10.4) H 07/24/21 19:10 Neut % (Auto) 50.8 % 07/24/21 19:10 Lymph % (Auto) 39.0 % 07/24/21 19:10 [place] % (Auto) 7.5 % 07/24/21 19:10 Eos % (Auto) 1.5 % 07/24/21 19:10 Baso % (Auto) 0.9 % 07/24/21 19:10 Neut # (Auto) 7.30 10^3/uL (1.8-7.7) 07/24/21 19:10 Lymph # (Auto) 5.6 10^3/uL (0.8-4.8) H 07/24/21 19:10 [place] # (Auto) 1.1 10^3/uL (0.2-0.9) H 07/24/21 19:10 Eos # (Auto) 0.2 10^3/uL (0.0-0.8) 07/24/21 19:10 Baso # (Auto) 0.1 10^3/uL (0.0-0.1) 07/24/21 19:10 Nucleated RBC % (auto) 0 % 07/24/21 19:10 Nucleated RBCs # 0.0 /100WBC 07/24/21 19:10 D-Dimer 0.61 ug/mIFEU (0-0.59) H 07/24/21 20:21 Sodium 135 mmol/L (136-145) L 07/24/21 19:10 Potassium 4.1 mmol/L (3.5-5.1) 07/24/21 19:10 Chloride 98 mmol/L (98-107) 07/24/21 19:10 Carbon Dioxide 20 mmol/L (22-29) L 07/24/21 19:10 Anion Gap 21.1 (5-19) H 07/24/21 19:10 BUN 12 mg/dL (6-20) 07/24/21 19:10 Creatinine 0.5 mg/dL (0.5-0.9) 07/24/21 19:10 GFR Calculation 127.2 mL/min (90-130) 07/24/21 19:10 Glucose 316 mg/dL (65-115) H 07/24/21 19:10 Calculated Osmolality 292 mOsm/kg (285-295) 07/24/21 19:10 Calcium 9.2 mg/dL (8.5-10.5) 07/24/21 19:10 Magnesium 1.7 mg/dL (1.7-2.3) 07/24/21 19:10 Total Bilirubin 0.5 mg/dL (0.15-1.2) 07/24/21 19:10 AST 10 U/L (0-32) 07/24/21 19:10 ALT 8 U/L (0-33) 07/24/21 19:10 Alkaline Phosphatase 112 IU/L (35-105) H 07/24/21 19:10 Troponin T Baseline 13 ng/L (0-10) H 07/24/21 19:10 Troponin T 120 Minute 13.69 ng/L (0-10) H 07/24/21 22:13 Delta Troponin T 0.69 ABS# (0-10) 07/24/21 22:13 NT-Pro-B Natriuret Pep 238 pg/mL (0-125) H 07/24/21 19:10 Total Protein 6.9 g/dL (6.6-8.7) 07/24/21 19:10 Albumin 3.5 g/dL (3.5-5.2) 07/24/21 19:10 Globulin 3.4 g/dL (1.3-4.6) 07/24/21 19:10 TSH 4.25 uIU/mL (0.27-4.20) H 07/24/21 19:10 Free T4 1.38 ng/dL (0.82-1.77) 07/24/21 19:10 Discharge Plan Discharge Patient Disposition: Home Clinical Impression: SVT (supraventricular tachycardia), Chest pain, Dehydration Condition: Stable Prescriptions: New flecainide 150 mg tablet 150 mg PO Q12H Qty: 60 0RF Discontinued flecainide 100 mg tablet 100 mg PO Q12H Qty: 180 2RF No Action albuterol sulfate 2.5 mg /3 mL (0.083 %) solution for nebulization 2.5 mg inhalation QID PRN (Reason: shortness of breath or wheezing) 30 Days Qty: 75 2RF (DME) OneTouch Ultra Test Strip See Rx Instructions .Route Qty: 100 5RF Rx Instructions: use 1 strip 3 time day (DME) blood-glucose meter [OneTouch Ultra2 Meter] Kit See Rx Instructions .Route Qty: 1 0RF Rx Instructions: As directed (DME) lancets [OneTouch Delica Plus Lancet] 33 gauge misc See Rx Instructions .Route Qty: 100 5RF Rx Instructions: use one each 3 times day as needed (DME) pen needle, diabetic 33 gauge x 5/32 needle See Rx Instructions .ROUTE .MEDSUPPLY Qty: 200 5RF Rx Instructions: 5 times day DILT-XR 180 mg capsule,ext.rel 24h degradable 180 mg PO QAM Qty: 30 2RF albuterol sulfate [ProAir HFA] 90 mcg/actuation HFA aerosol inhaler 2 puff INHALATION Q4H PRN (Reason: Shortness Of Breath Or Wheezing) 30 Days Qty: 6.7 2RF duloxetine 60 mg capsule,delayed release(DR/EC) 60 mg PO BID Qty: 60 2RF fluticasone propion-salmeterol [Advair Diskus] 250-50 mcg/dose blister with device 1 inh inhalation BEDTIME Qty: 60 2RF insulin aspart U-100 [Novolog Flexpen U-100 Insulin] 100 unit/mL (3 mL) insulin pen See Rx Instructions SUBCUT TID Qty: 15 0RF Rx Instructions: sliding scale three times daily prn 110-129=3U 130-150=6U 151-200=9U 201-250=12U 251-300=15U 301-350=18U 351-400=21U >400=24U Levemir FlexTouch U-100 Insuln 100 unit/mL (3 mL) insulin pen 70 unit SUBCUT BEDTIME Qty: 15 2RF Victoza 3-Macario 0.6 mg/0.1 mL (18 mg/3 mL) pen injector 1.2 mg SUBCUT BEDTIME Qty: 9 2RF lisinopril 20 mg tablet 20 mg PO BEDTIME Qty: 30 2RF Xarelto 20 mg tablet 20 mg PO BEDTIME 30 Days Qty: 30 2RF atorvastatin 40 mg tablet 40 mg PO BEDTIME Qty: 30 2RF Rx Instructions: dose increase tizanidine 2 mg tablet 2 mg PO BID Qty: 60 2RF furosemide [Lasix] 20 mg tablet 20 mg PO QAM Qty: 30 2RF glipizide 10 mg tablet 10 mg PO BID Qty: 60 2RF Rx Instructions: using SS NovoLog if glucose is high (DME) [place] Boot to left See Rx Instructions .Route .MEDSUPPLY Qty: 1 0RF Rx Instructions: As directed by PENNY[employer]O sucralfate [Carafate] 1 gram tablet 1 g PO TID 30 Days Qty: 90 0RF Rx Instructions: 1 hour before meals loperamide [Anti-Diarrheal (loperamide)] 2 mg Tablet 2 - 4 mg PO PRN PRN (Reason: Diarrhea) 0RF acetaminophen [Tylenol Extra Strength] 500 mg Tablet 1,000 mg PO TID PRN (Reason: Pain) 0RF hydrocodone-acetaminophen 5-325 mg tablet 1 tab PO Q8H PRN (Reason: pain) Qty: 20 0RF Charmaine-C 500 mg Tablet 1,000 mg PO BEDTIME 0RF Aspercreme 10 % Cream 1 applic TOPICAL TID PRN (Reason: Pain) 0RF Protonix 40 mg tablet,delayed release (DR/EC) 40 mg PO DAILY PRN (Reason: Heartburn) 0RF valerian root 500 mg Capsule 500 - 1,000 mg PO BEDTIME 0RF chlorpheniramine maleate 4 mg Tablet 4 mg PO TID PRN (Reason: Allergy Symptoms) 0RF ibuprofen 200 mg Tablet 800 mg PO BEDTIME 0RF Hold Instructions: Doctor's Order nitroglycerin [Nitrostat] 0.4 mg Tablet, Sublingual 0.4 mg SUBLINGUAL Q5M PRN (Reason: Chest Pain) 0RF Rx Instructions: do not exceed 3 doses per episode Discharge Orders: Discharge ED (Routine); Ordered 07/24/21 Ordered By: Adebayo Todd Referrals: Ángel Vance, [employer] [Primary Care Provider] - Discharge Diet: Usual diet Discharge Activity: Increase activity as tolerated Patient Instructions: Supraventricular Tachycardia (ED), Chest Pain (ED), Opioid Safety Activity Restrictions/Additional Instructions: Thank you for visiting the emergency department. You were seen and evaluated for SVT and chest pain. The exact cause of your symptoms is unclear though likely related to underlying arrhythmia disorder. Please continue plan to follow-up with Dr. Alejandro. Per recommendations of cardiology we will increase your flecainide from 100 mg twice daily to 150 mg twice daily. Due to this dose change you will require a repeat EKG in 1 week and cardiology follow-up within 1 to 2 weeks. I will message case management for assistance with this. Please follow-up with your primary care provider. Please return to the emergency department for worsening symptoms, recurrence of SVT, syncope, shortness of breath, chest pain, or anything else that you are concerned about and feel needs emergency department evaluation. Coding Level of Care Code ED Plant Assigner for Briana N[place]
--- NOTE | 2021-07-24 18:41 | XRR_ITS ---
PROCEDURE INFORMATION: Exam: XR Chest Exam date and time: 07/24/2021 6:54 PM Age: 56 years old Clinical indication: Chest wall pain; Prior surgery; Surgery date: 6+ months; Surgery type: Bi lat breast mastectomy; Additional info: Chest pain, svt TECHNIQUE: Imaging protocol: XR of the chest. Views: 1 view. COMPARISON: CR (CHEST, ) 06/18/2021 4:23 AM FINDINGS: Lungs: The lungs are clear. Pleural spaces: Unremarkable. No pleural effusion. No pneumothorax. Heart/Mediastinum: The heart is normal in size. An electronic device projects in the midline upper chest projecting over the region of the ascending thoracic aorta, which may be external to the patient Bones/joints: Unremarkable. Soft tissues: Surgical clips are again seen in the right chest wall soft tissues. XR/XR chest 1V portable [id number] IMPRESSION: No acute cardiopulmonary abnormality. Electronic device projecting in the mediastinum is likely external to the patient, correlate clinically.
[2021-07-24 19:23] LABS: Basophils # 0.1 10^3/uL (0.0-0.1); Basophils % 0.9 %; Eosinophils # 0.2 10^3/uL (0.0-0.8); Eosinophils % 1.5 %; Hematocrit 49.6 % (37.0-47.0); Hemoglobin 17.1 g/dL (11.5-15.3); Lymphocytes # 5.6 10^3/uL (0.8-4.8); Mean Corpuscular HGB Conc 34.5 g/dL (30.0-36.0); Mean Corpuscular Hemoglobin 29.5 pg (28.0-34.0); Mean Corpuscular Volume 85.5 fl (81-99); Mean Platelet Volume 11.7 fL (7.4-10.4); Monocytes # 1.1 10^3/uL (0.2-0.9); Monocytes % 7.5 %; Neutrophils % 50.8 %; Nucleated Red Blood Cells % 0 %; Platelet Count 389 10^3/cmm (130-400); Red Cell Distribution Width 13.1 % (12.1-15.1); White Blood Count 14.4 10^3/uL (4.0-10.0)
[2021-07-24] MEDS: sodium chloride 0.9% 1,000 ML 999 ML IV (19:50)
[2021-07-24 19:51] LABS: Troponin(5th) Baseline 13 ng/L (0-10)
[2021-07-24 19:55] VITALS: BP 136/65; PULSE 68; RESP 16; O2SAT 99
[2021-07-24 19:56] LABS: Alanine Aminotransferase 8 U/L (0-33); Albumin Level 3.5 g/dL (3.5-5.2); Alkaline Phosphatase 112 IU/L (35-105); Blood Urea Nitrogen 12 mg/dL (6-20); Calcium 9.2 mg/dL (8.5-10.5); Carbon Dioxide 20 mmol/L (22-29); Chloride 98 mmol/L (98-107); Globulin 3.4 g/dL (1.3-4.6); Glomerular Filtration Rate 127.2 mL/min (90-130); Glucose 316 mg/dL (65-115); Magnesium 1.7 mg/dL (1.7-2.3); NT Pro B Type Natriuretic Pept 238 pg/mL (0-125); Osmolality Calculated 292 mOsm/kg (285-295); Sodium 135 mmol/L (136-145); Thyroid Stimulating Hormone 4.25 uIU/mL (0.27-4.20); Total Bilirubin 0.5 mg/dL (0.15-1.2); Total Protein 6.9 g/dL (6.6-8.7)
[2021-07-24 19:57] LABS: Anion Gap 21.1 (5-19); Aspartate Amino Transferase 10 U/L (0-32); Potassium 4.1 mmol/L (3.5-5.1)
[2021-07-24 20:00] VITALS: BP 156/78; PULSE 83; RESP 13; O2SAT 99
--- NOTE | 2021-07-24 20:42 | ECG_ITS ---
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 Measurements Intervals [place] Rate: 78 P: 42 MN: 192 QRS: 26 QRSD: 106 T: 61 QT: 396 QTc: 451 Interpretive Statements SINUS RHYTHM Compared to ECG 07/09/2021 15:11:44 Myocardial infarct finding no longer present ST (T wave) deviation no longer present Electronically Signed On 07-24-2021 22:33:17 CDT by Santo Hinojosa M.D. [id number]
[2021-07-24 21:01] LABS: D Dimer 0.61 ug/mIFEU (0-0.59)
--- NOTE | 2021-07-24 21:04 | CTR_ITS ---
PROCEDURE INFORMATION: Exam: CTA Chest With Contrast Exam date and time: 07/24/2021 9:39 PM Age: 56 years old Clinical indication: Chest pressure; Prior surgery; Surgery type: Bilat mastectomy; Patient HX: C/O chest pain. Svts on monitor. One round of cardioversion. Elevated ddimer. ; Additional info: Chest pain, elevated ddimer TECHNIQUE: Imaging protocol: Computed tomographic angiography of the chest with contrast. 3D rendering (Not supervised by radiologist): MIP and/or 3D reconstructed images were created by the technologist. Radiation optimization: All CT scans at this facility use at least one of these dose optimization techniques: automated exposure control; mA and/or kV adjustment per patient size (includes targeted exams where dose is matched to clinical indication); or iterative reconstruction. Contrast material: OMNI 350; Contrast volume: 67 ml; Contrast route: INTRAVENOUS (IV); COMPARISON: CT angio chest PE protcl [id number] 06/29/2020 7:29 PM RADIATION DOSE METRICS: Total DLP (mGy-cm): 569.35 FINDINGS: Pulmonary arteries: No vascular intraluminal filling defects to suggest pulmonary embolism. Aorta: Mild atherosclerotic tortuosity of the thoracic aorta. No aortic aneurysm or dissection. Lungs: Left apical and posterior right lower lobe calcified granulomas. Minimal bibasilar atelectasis. No consolidation. Pleural spaces: Unremarkable. No pneumothorax. No pleural effusion. Heart: Heart size is normal. Proximal LAD coronary artery calcifications. Lymph nodes: No enlarged lymph nodes. Spleen: Punctate splenic calcified granulomas. Bones/joints: No acute osseous abnormality. No acute fracture. Soft tissues: Previous bilateral mastectomies. CT/CT angio chest PE protcl [id number] IMPRESSION: 1. No evidence of pulmonary embolism or aortic dissection. 2. Atherosclerotic vascular disease including coronary artery disease. 3. Old granulomatous disease. 4. Previous bilateral mastectomies.
[2021-07-24] MEDS: iohexol 350 mg/mL 100 mL Btl IV (21:44)
[2021-07-24 22:48] LABS: Free T4 Free Thyroxine 1.38 ng/dL (0.82-1.77)
[2021-07-24 22:55] LABS: Troponin 5 2HR 13.69 ng/L (0-10)
[2021-07-24 22:56] LABS: Troponin 5 2HR Delta 0.69 ABS# (0-10)
[2021-07-24 23:10] VITALS: BP 156/78; PULSE 83; RESP 13; O2SAT 99
--- NOTE | 2021-08-08 18:10 | DCPLANNER ---
Addendum entered by Joslyn Grant 11/13/21 14:41: patient had a follow up appointment scheduled with heart care - patient did attend appointment. Addendum entered by Joslyn Grant 08/16/21 15:10: Patient has a follow up appointment scheduled for Tuesday, August 24, 2021 at 9:[address] Andersen at [facility]. Clinic will call patient with appointment information. Original Note: clinical statistics manager had message to schedule a follow up appointment for patient with cardiology. clinical statistics manager sent patients information to the front office staff at [facility]. Patients information will be printed and reviewed. Clinic will call patient with appointment information.
== END 2021-07-24 23:12 | disposition home or self-care (01) ==
PROVIDERS: Emergency Provider Emergency Medicine; PCP Nurse Practitioner
DX: I47.1 Supraventricular tachycardia (principal); E86.0 Dehydration; D72.829 Elevated white blood cell count, unspecified; I10 Essential (primary) hypertension; E11.9 Type 2 diabetes mellitus without complications; F17.210 Nicotine dependence, cigarettes, uncomplicated; Z79.4 Long term (current) use of insulin; Z79.891 Long term (current) use of opiate analgesic; E11.610 Type 2 diabetes mellitus with diabetic neuropathic arthropathy; L97.522 Non-pressure chronic ulcer of other part of left foot with fat layer exposed; E11.42 Type 2 diabetes mellitus with diabetic polyneuropathy; L60.3 Nail dystrophy; Z89.411 Acquired absence of right great toe; I49.8 Other specified cardiac arrhythmias
CPT/HCPCS: 71045; 71275; 80053; 83735; 83880; 84439; 84443; 84484; 85025; 85378; 93005; 99204; 99285; J7030; Q9967

== ENCOUNTER → 2021-07-30 09:51 | Outpatient (BNVA) | payer MEDICAID, SELFPAY | PROVIDERS: PCP Nurse Practitioner; Visit Provider Thoracic Surgery (Cardiothoracic Vascular Surgery) | DX: E11.621 Type 2 diabetes mellitus with foot ulcer (principal); L97.428 Non-pressure chronic ulcer of left heel and midfoot with other specified severity; F17.210 Nicotine dependence, cigarettes, uncomplicated | CPT/HCPCS: 99212; A6212 ==

== ENCOUNTER → 2021-08-22 13:03 | Outpatient (BNVA) | payer MEDICAID, SELFPAY | PROVIDERS: PCP Nurse Practitioner; Visit Provider Surgery | DX: M94.0 Chondrocostal junction syndrome [Tietze] (principal) | CPT/HCPCS: 99212 ==

== ENCOUNTER → 2021-08-24 08:49 | Outpatient (BNVA) | payer MEDICAID, SELFPAY | PROVIDERS: PCP Nurse Practitioner; Visit Provider Internal Medicine Cardiovascular Disease | DX: E11.610 Type 2 diabetes mellitus with diabetic neuropathic arthropathy (principal); E11.621 Type 2 diabetes mellitus with foot ulcer; L97.522 Non-pressure chronic ulcer of other part of left foot with fat layer exposed; E11.42 Type 2 diabetes mellitus with diabetic polyneuropathy; L60.3 Nail dystrophy; Z89.431 Acquired absence of right foot; M79.672 Pain in left foot; Z09 Encounter for follow-up examination after completed treatment for conditions other than malignant neoplasm; L97.509 Non-pressure chronic ulcer of other part of unspecified foot with unspecified severity; C50.911 Malignant neoplasm of unspecified site of right female breast; E11.65 Type 2 diabetes mellitus with hyperglycemia; Z79.4 Long term (current) use of insulin; F17.210 Nicotine dependence, cigarettes, uncomplicated; I48.91 Unspecified atrial fibrillation; J44.9 Chronic obstructive pulmonary disease, unspecified; M77.32 Calcaneal spur, left foot; S93.326A Dislocation of tarsometatarsal joint of unspecified foot, initial encounter; S93.325D Dislocation of tarsometatarsal joint of left foot, subsequent encounter | CPT/HCPCS: 73630; 99213; 99214 ==

== ENCOUNTER 2021-09-26 | Outpatient (CLI) | payer MEDICAID, SELFPAY | END 2021-09-26 23:59 | disposition home or self-care (01) | LOC: RAD 10-22 16:10 | PROVIDERS: PCP Nurse Practitioner; Visit Provider Nurse Practitioner Family | DX: R10.12 Left upper quadrant pain (principal); K52.9 Noninfective gastroenteritis and colitis, unspecified; K80.20 Calculus of gallbladder without cholecystitis without obstruction | CPT/HCPCS: 99214 ==

== ENCOUNTER → 2021-10-03 09:35 | Outpatient (BNVA) | payer MEDICAID, SELFPAY | PROVIDERS: PCP Nurse Practitioner; Visit Provider Podiatrist Foot & Ankle Surgery | DX: E11.610 Type 2 diabetes mellitus with diabetic neuropathic arthropathy (principal); M79.672 Pain in left foot; E11.42 Type 2 diabetes mellitus with diabetic polyneuropathy; L60.3 Nail dystrophy; L97.522 Non-pressure chronic ulcer of other part of left foot with fat layer exposed; E11.621 Type 2 diabetes mellitus with foot ulcer; Z79.4 Long term (current) use of insulin | CPT/HCPCS: 73630; 99213; 99214 ==

== ENCOUNTER → 2021-10-08 09:13 | Outpatient (BNVA) | payer MEDICAID, SELFPAY | PROVIDERS: PCP Nurse Practitioner; Visit Provider Nurse Practitioner Family | DX: E11.65 Type 2 diabetes mellitus with hyperglycemia (principal); Z79.4 Long term (current) use of insulin; I48.0 Paroxysmal atrial fibrillation; J44.9 Chronic obstructive pulmonary disease, unspecified; I10 Essential (primary) hypertension; E11.42 Type 2 diabetes mellitus with diabetic polyneuropathy; K21.9 Gastro-esophageal reflux disease without esophagitis; M79.10 Myalgia, unspecified site | CPT/HCPCS: 80053; 80061; 83036; 84443; 85025 ==

== ENCOUNTER 2021-10-19 08:20 | Day surgery (SDC) | payer MEDICAID, SELFPAY ==
[2021-10-18 11:11] VITALS: BMI 35.0
--- NOTE | 2021-10-19 08:02 | P.ANESASSM_ITS ---
Pre-Anesthetic Assessment Height/Weight: Height 1.7 m Weight 101.605 kg Preop Diagnosis: Nonhealing right great toe Operation Date: 10/19/21 09:30 Proposed Procedures p EGD 71210,R10.12,K52.9(Not Applicable) - Leo Bravo MD Familial anesthetic complications: none Was Beta Moi taken within 24 hours: N/A Was Clonidine taken within 24 hours: N/A Last intake: 10/18/21 Social Tobacco Exam alert, oriented x 3, clear to auscultation bilaterally and regular rate & rhythm Airway Submandibular: within normal limits Cervical ROM: within normal limits Mallampati: Class II Comments: Comments: missing teeth Pulmonary Asthma, Chronic Obstructive Pulmonary Disease and Sleep Apnea CV/HEM Atrial Fibrillation, Arrythmia (SVT) and Hypertension Hx of unstable angina pectoris 07/13 Holter report Conclusion: 1.? The baseline rhythm was found to be normal sinus with an average overall heart rate of 85 bpm. 2.? Frequent episodes of asymptomatic supraventricular tachycardia, possibly sinus were noted.? Supraventricular ectopics accounted for 2% of the total heartbeats.? The ventricular ectopics accounted for less than 1% of the total heartbeats.? There is one 2.7-second pause.? No no other significant tachy or bradycardia arrhythmias.? 3.? No previous similar studies, available for comparison 03/13 TTE CONCLUSIONS ?Normal left ventricular size and systolic function, EF 63 %. No ?regional wall motion abnormalities.? Mild concentric left ?ventricular hypertrophy.Grade I/IV diastolic dysfunction ?(abnormal relaxation filling pattern), normal to mildly elevated ?filling pressures. ?Trace aortic valve regurgitation. ?Small atrial septal aneurysm ?Trace tricuspid valve regurgitation. ?There is no pericardial effusion. ?There are no intracardiac masses. ?Compared to the study from 10/12/2016, there may not be a ?significant change 2020 Stress Test CONCLUSION: Please note due to baseline abnormality of the EKG specificity and sensitivity of the EKG portion of LexiScan MIBI stress test will be low 1.? EKG not suggestive of ischemia 2.? Lexiscan injection unremarkable. 3.? Perfusion scan will be documented separately. Electronically Signed On 12-03-2019 16:46:58 CDT by Lamin Tan M.D. [email or web address] [id number] None reported Hepatic None reported GI Gastroesophageal Reflux Disease Metabolic Diabetes Mellitus Musc/skel Ulcer of foot Hx of mastectomy Neuropsych None reported Anesthetic Plan ASA status: 3 Anesthesia: Anesthesia Evaluation and MAC Other: I discussed with the patient risks, goals, and benefits of MAC and general anesthesia. We discussed spectrum of MAC anesthesia including conversion to general as well as possibility of recall of intraoperative stimuli including discomfort/pain. Patient agrees to proceed with MAC. Risk of > 500 ml blood loss (7ml/kg in children): No Medications/Allergies Home Medications Medication Instructions Recorded Confirmed Last Taken Type albuterol sulfate 2.5 mg (3 mL) inhalation QID PRN 02/25/20 10/18/21 Unknown Rx shortness of breath or wheezing 30 days #75 mL acetaminophen 500 mg tablet 1,000 mg PO TID PRN Pain 06/29/20 10/18/21 05/08/21 History (Tylenol Extra Strength) loperamide 2 mg tablet 2 - 4 mg PO PRN PRN Diarrhea 06/29/20 10/18/21 Unknown History (Anti-Diarrheal (loperamide)) hydrocodone 5 mg-acetaminophen 325 1 tab PO Q8H PRN pain #20 tabs 05/08/21 10/18/21 Unknown Rx mg tablet chlorpheniramine maleate 4 mg 4 mg PO TID PRN Allergy Symptoms 06/18/21 10/18/21 10/19/21 07:00 History tablet ibuprofen 200 mg tablet 600 mg PO TID 06/18/21 10/18/21 07/08/21 History nitroglycerin 0.4 mg sublingual 0.4 mg sublingual Q5M PRN Chest 06/18/21 10/18/21 Unknown History tablet (Nitrostat) Pain valerian root 500 mg capsule 500 - 1,000 mg PO BEDTIME 06/18/21 10/18/21 10/18/21 History ascorbate calcium (vitamin C) 500 1,000 mg PO BEDTIME 07/09/21 10/18/21 10/18/21 History mg tablet trolamine salicylate 10 % topical 1 applic topical TID PRN Pain 07/09/21 10/18/21 10/18/21 History cream (Aspercreme) diltiazem HCl 180 mg 180 mg PO QAM #30 caps 07/18/21 10/18/21 10/19/21 07:00 Rx capsule,extended release 24 hr, controlled (DILT-XR) gabapentin 300 mg capsule 300 mg PO BID #60 caps 09/21/21 10/18/21 10/18/21 Rx albuterol sulfate 90 mcg/actuation 2 puff inhalation Q4H PRN 10/08/21 10/18/21 Unknown Rx aerosol inhaler (ProAir HFA) Shortness Of Breath Or Wheezing 30 days #6.7 grams atorvastatin 40 mg tablet 40 mg PO BEDTIME #30 tabs 10/08/21 10/18/21 10/18/21 Rx duloxetine 60 mg capsule,delayed 60 mg PO BID #60 caps 10/08/21 10/18/21 10/18/21 Rx release flecainide 150 mg tablet 150 mg PO Q12H #60 tabs 10/08/21 10/18/21 10/18/21 Rx fluticasone 250 mcg-salmeterol 50 1 inh inhalation BEDTIME #60 ea 10/08/21 10/18/21 Unknown Rx mcg/dose blistr powdr for inhalation (Advair Diskus) furosemide 20 mg tablet (Lasix) 20 mg PO QAM #30 tabs 10/08/21 10/18/21 10/18/21 Rx glipizide 10 mg tablet 10 mg PO BID #60 tabs 10/08/21 10/18/21 10/18/21 Rx lisinopril 20 mg tablet 20 mg PO BEDTIME #30 tabs 10/08/21 10/18/21 10/18/21 Rx rivaroxaban 20 mg tablet (Xarelto) 20 mg PO BEDTIME 30 days #30 tabs 10/08/21 10/18/21 10/18/21 Rx sucralfate 1 gram tablet (Carafate) 1 g PO TID 30 days #90 tabs 10/08/21 10/18/21 Unknown Rx tizanidine 2 mg tablet 2 mg PO BID Muscle Spasm #60 tabs 10/08/21 10/18/21 10/18/21 Rx insulin detemir U-100 100 unit/mL 60 unit (0.6 mL) SUBCUT BEDTIME 10/11/21 10/18/21 10/18/21 Rx (3 mL) subcutaneous pen (Levemir #18 mL FlexTouch U-100 Insulin) liraglutide 0.6 mg/0.1 mL (18 mg/3 1.8 mg (0.3 mL) SUBCUT BEDTIME #9 10/11/21 10/18/21 10/18/21 Rx mL) subcutaneous pen injector mL (Victoza 3-Macario) insulin aspart U-100 100 unit/mL See Rx Instructions SUBCUT TID PRN 10/18/21 10/18/21 Unknown History (3 mL) subcutaneous pen (Novolog Pain Flexpen U-100 Insulin aspart) pantoprazole 40 mg tablet,delayed 40 mg PO DAILY #30 tabs 10/19/21 10/18/21 10/18/21 Rx release (Protonix) Allergies Allergy/AdvReac Type Severity Reaction Status Date / Time azithromycin [From Zithromax] Allergy Unknown ADR-Gastrointestinal Verified 10/18/21 11:07 Upset sulfamethoxazole Allergy Unknown ADR-Gastrointestinal Verified 10/18/21 11:07 [From Bactrim] Upset trimethoprim [From Bactrim] Allergy Unknown ADR-Gastrointestinal Verified 10/18/21 11:07 Upset PFSH Anesthesia Medical History Asthma Atrial fibrillation Benign hypertension Breast cancer, left breast Breast cancer, right COPD (chronic obstructive pulmonary disease) COPD exacerbation Diabetes mellitus with hyperglycemia, with long-term current use of insulin Dyslipidemia Gastroesophageal reflux disease Open wound of foot Right great toe Osteoarthritis of spine SVT (supraventricular tachycardia) Ulcer of foot, chronic Surgical History (Updated 10/19/21 @ 10:10 by Leo Bravo MD) H/O bilateral mastectomy H/O esophagogastroduodenoscopy (10/19/21) History of appendectomy History of hysterectomy Status post left breast lumpectomy Status post right breast lumpectomy Family History Father CAD (coronary artery disease) CHF (congestive heart failure) Hyperlipidemia Hypertension Lung disease Stroke Other Diabetes Denies family history of Clotting disorder Dementia Psychiatric illness Chronic kidney disease (CKD) Suicide Anesthesia complication Bleeding disorder Family history of premature coronary artery disease Cancer Social History Smoking and tobacco status: current every day smoker cigarettes Packs smoked per day: 2 Second hand smoke exposure: Yes Smoking risk assessment/counseling performed?: Yes Alcohol intake: never Desire information about alcohol rehabilitation?: No Counseling given: No Desire information about substance/drug rehabilitation?: No Counseling given: No Adopted: No Caregiver/support person: No Lives independently: Yes Household members: family Housing: House Marital status: Single Number of children: 1 service: No Current occupational status: employed History of recent travel: No Current gender identity: Female Data Anesthesia Cardiac Studies: Echocardiogram 06/18/21 Sestamibi Stress Test (Cardiology) 11/23 Cardiac Event Monitor 07/16/21 Holter Monitor 08/20/19
[2021-10-19 08:39] VITALS: BP 121/73; PULSE 88; RESP 18; TEMP 36.2; O2SAT 99
[2021-10-19] MEDS: sodium chloride 0.9% 1,000 ML 30 ML IV (08:45)
--- NOTE | 2021-10-19 09:33 | W.PM.OPSFHP ---
Same Day Surgery H&P Indication for Procedure/HPI DATE OF PROCEDURE: October 19, 2021 CHIEF COMPLAINT/INDICATIONFOR SURGICAL PROCEDURE: egd/colon PREOP DIAGNOSIS: upper gi symptoms PLANNED PROCEDURE: Operation Date: 10/19/21 09:30 Proposed Procedures p EGD 25310,R10.12,K52.9(Not Applicable) - Leo Bravo MD Medications/Allergies* Home Medications Medication Instructions Recorded Confirmed Type acetaminophen 500 mg tablet 1,000 mg PO TID PRN Pain 06/29/20 10/18/21 History (Tylenol Extra Strength) loperamide 2 mg tablet 2 - 4 mg PO PRN PRN Diarrhea 06/29/20 10/18/21 History (Anti-Diarrheal (loperamide)) chlorpheniramine maleate 4 mg 4 mg PO TID PRN Allergy Symptoms 06/18/21 10/18/21 History tablet ibuprofen 200 mg tablet 600 mg PO TID 06/18/21 10/18/21 History nitroglycerin 0.4 mg sublingual 0.4 mg sublingual Q5M PRN Chest 06/18/21 10/18/21 History tablet (Nitrostat) Pain valerian root 500 mg capsule 500 - 1,000 mg PO BEDTIME 06/18/21 10/18/21 History ascorbate calcium (vitamin C) 500 1,000 mg PO BEDTIME 07/09/21 10/18/21 History mg tablet trolamine salicylate 10 % topical 1 applic topical TID PRN Pain 07/09/21 10/18/21 History cream (Aspercreme) insulin aspart U-100 100 unit/mL See Rx Instructions SUBCUT TID PRN 10/18/21 10/18/21 History (3 mL) subcutaneous pen (Novolog Pain Flexpen U-100 Insulin aspart) Allergies/Adverse Reactions Allergy/AdvReac Type Severity Reaction Status Date / Time azithromycin [From Zithromax] Allergy Unknown ADR-Gastrointestinal Verified 10/18/21 11:07 Upset sulfamethoxazole Allergy Unknown ADR-Gastrointestinal Verified 10/18/21 11:07 [From Bactrim] Upset trimethoprim [From Bactrim] Allergy Unknown ADR-Gastrointestinal Verified 10/18/21 11:07 Upset Current Medications: Generic Name Dose Route Start Last Admin Trade Name Freq PRN Reason Stop Dose Admin Sodium Chloride 1,000 mls @ 30 mls/hr 10/19/21 08:30 10/19/21 08:45 Sodium Chloride 0.9% IV 10/20/21 08:29 30 mls/hr .Q24H KELSEA Administration Pertinent History/Comorbid Conditions* Medical History (Updated 10/08/21 @ 09:43 by RICHARD Sotelo) Asthma Atrial fibrillation Benign hypertension Breast cancer, left breast Breast cancer, right COPD (chronic obstructive pulmonary disease) COPD exacerbation Diabetes mellitus with hyperglycemia, with long-term current use of insulin Dyslipidemia Gastroesophageal reflux disease Open wound of foot Right great toe Osteoarthritis of spine SVT (supraventricular tachycardia) Ulcer of foot, chronic Surgical History (Updated 04/13/21 @ 11:32 by Leo Bravo MD) H/O bilateral mastectomy History of appendectomy History of hysterectomy Status post left breast lumpectomy Status post right breast lumpectomy Family History (Updated 05/25/19 @ 15:34 by Charo Veliz RN) Diabetes CAD (coronary artery disease) Father CHF (congestive heart failure) Father Hyperlipidemia Father Lung disease Father Hypertension Father Stroke Father Denies family history of Clotting disorder Dementia Psychiatric illness Chronic kidney disease (CKD) Suicide Anesthesia complication Bleeding disorder Family history of premature coronary artery disease Cancer Social History Smoking and tobacco status: current every day smoker cigarettes Packs smoked per day: 2 Second hand smoke exposure: Yes Smoking risk assessment/counseling performed?: Yes Alcohol intake: never Desire information about alcohol rehabilitation?: No Counseling given: No Desire information about substance/drug rehabilitation?: No Counseling given: No Adopted: No Caregiver/support person: No Lives independently: Yes Household members: family Housing: House Marital status: Single Number of children: 1 service: No Current occupational status: employed History of recent travel: No Current gender identity: Female Pertinent Exam Findings alert, oriented x 3 and regular rate & rhythm Recommendations Surgery/Procedure today Coding Level of Care Code 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
[2021-10-19 09:55] VITALS: BP 145/78; PULSE 80; RESP 16; TEMP 36.3; O2SAT 96
[2021-10-19 10:03] VITALS: BP 133/77; PULSE 77; RESP 18; O2SAT 100
--- NOTE | 2021-10-19 13:23 | ANE.PACU2 ---
Inpatient post-anesthesia follow up: Airway intact: Yes Vital signs: Temperature 97.4 F Pulse Rate 77 Respiratory Rate 18 Blood Pressure 133/77 Pulse Oximetry 100 Oxygen Delivery Me thod Room Air Oxygen Flow Rate 3 Fraction of Inspir ed Oxygen Hydration adequate: Yes Nausea and vomiting: No Pain level: 1 Mental status: Baseline
== END 2021-10-19 10:26 | disposition home or self-care (01) ==
PROVIDERS: PCP Nurse Practitioner; Visit Provider Surgery
PROC: 0DJ08ZZ Inspection of Upper Intestinal Tract, Via Natural or Artificial Opening Endoscopic (ICD-10-PCS; CPT 43235; principal; 2021-10-19 09:30)
DX: R10.12 Left upper quadrant pain (principal); K25.9 Gastric ulcer, unspecified as acute or chronic, without hemorrhage or perforation; K29.50 Unspecified chronic gastritis without bleeding; J44.9 Chronic obstructive pulmonary disease, unspecified; G47.30 Sleep apnea, unspecified; I48.91 Unspecified atrial fibrillation; I10 Essential (primary) hypertension; K21.9 Gastro-esophageal reflux disease without esophagitis; E11.65 Type 2 diabetes mellitus with hyperglycemia; E78.5 Hyperlipidemia, unspecified; F17.200 Nicotine dependence, unspecified, uncomplicated
CPT/HCPCS: 43239; 88305; 88342; J2704; J7030

== ENCOUNTER → 2021-10-25 11:17 | Outpatient (BNVA) | payer MEDICAID, SELFPAY | PROVIDERS: PCP Nurse Practitioner; Visit Provider Nurse Practitioner | DX: E11.65 Type 2 diabetes mellitus with hyperglycemia (principal); Z79.4 Long term (current) use of insulin; F41.8 Other specified anxiety disorders | CPT/HCPCS: 80048 ==

== ENCOUNTER 2021-11-04 16:31 | Inpatient (IN) | payer MEDICAID, SELFPAY ==
[2021-11-04] VITALS (61 sets, daily range): BP systolic 56–148; BP diastolic 43–107; PULSE 65–156; RESP 15–36; TEMP 36.4; O2SAT 90–100; BMI 36.8
--- NOTE | 2021-11-04 16:50 | ECG_ITS ---
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 Measurements Intervals [place] Rate: 158 P: MD: QRS: 19 QRSD: 112 T: 54 QT: 275 QTc: 447 Interpretive Statements ATRIAL FLUTTER WITH RAPID VENTRICULAR RESPONSE MODERATE INTRAVENTRICULAR CONDUCTION DELAY [110+ ms QRS DURATION] Compared to ECG 07/24/2021 21:09:12 Intraventricular conduction delay now present Sinus rhythm no longer present Electronically Signed On 11-05-2021 17:38:53 CDT by Santo Hinojosa M.D. [email or web address] ([email or web address] [id number]
--- NOTE | 2021-11-04 16:52 | XRR_ITS ---
PROCEDURE INFORMATION: Exam: XR Chest Exam date and time: 11/04/2021 4:56 PM Age: 56 years old Clinical indication: Cough and dyspnea; Additional info: Dyspnea/cough TECHNIQUE: Imaging protocol: Radiologic exam of the chest. Views: 1 view. COMPARISON: CR (CHEST, ) 07/24/2021 6:54 PM FINDINGS: Lungs: Unremarkable. No consolidation. Pleural spaces: Unremarkable. No pleural effusion. No pneumothorax. Heart/Mediastinum: Unremarkable. No cardiomegaly. Bones/joints: Unremarkable. XR/XR chest 1V portable [id number] IMPRESSION: No acute findings.
--- NOTE | 2021-11-04 17:00 | ED_ITS ---
HPI - Arrhythmia/Palpitations General: Chief Complaint: Arrhythmia/Palpitations Stated Complaint: heart racing Time Seen by Provider: 11/04/21 16:49 Source: patient Mode of arrival: ambulatory History of Present Illness: 86-year-old female known history of atrial fibrillation presents with lightheaded and dizziness that began this morning around 8 AM. She has been dizzy had near syncopal episodes and generally felt weak she has a heart monitor but not send any reports in on it. Just mild chest discomfort that is developed throughout the day. MD complaint: rapid heart beat and heart racing Onset (ago): hour(s) Time: 08:00 Duration: constant Severity: moderate Context: occurred during rest Arrhythmia history: atrial fibrillation Associated symptoms: Reports nausea, pre-syncope and short of breath; Deny anxiety, cough, diaphoresis, muscle cramps, paresthesias, sense of impending doom, syncope or vomiting Review of Systems Const: Denies: fever(s), chills, fatigue, malaise or diaphoresis ENMT: Denies: throat pain, ear or mastoid pain, nasal discharge or nasal congestion Card: Reports: pre-syncope; Denies: syncope Resp: Denies: dyspnea, productive cough or non-productive cough GI: Reports: nausea; Denies: abdominal pain or vomiting : Denies: flank pain, difficulty voiding, dysuria, urinary frequency or urinary urgency Musc: Denies: muscle cramps Skin/Breast: Denies: rash or pruritus Psych: Denies: anxiety PFSH ED PFSH: Medical History Asthma Atrial fibrillation Benign hypertension Breast cancer, left breast Breast cancer, right COPD (chronic obstructive pulmonary disease) COPD exacerbation Diabetes mellitus with hyperglycemia, with long-term current use of insulin Dyslipidemia Gastroesophageal reflux disease Open wound of foot Right great toe Osteoarthritis of spine SVT (supraventricular tachycardia) Ulcer of foot, chronic Surgical History H/O bilateral mastectomy H/O esophagogastroduodenoscopy (10/19/21) History of appendectomy History of hysterectomy Status post left breast lumpectomy Status post right breast lumpectomy Family History Father CAD (coronary artery disease) CHF (congestive heart failure) Hyperlipidemia Hypertension Lung disease Stroke Other Diabetes Denies family history of Clotting disorder Dementia Psychiatric illness Chronic kidney disease (CKD) Suicide Anesthesia complication Bleeding disorder Family history of premature coronary artery disease Cancer Social History Smoking and tobacco status: current every day smoker cigarettes Packs smoked per day: 2 Second hand smoke exposure: Yes Smoking risk assessment/counseling performed?: Yes Alcohol intake: never Desire information about alcohol rehabilitation?: No Counseling given: No Desire information about substance/drug rehabilitation?: No Counseling given: No Adopted: No Caregiver/support person: No Lives independently: Yes Household members: family Housing: House Marital status: Single Number of children: 1 service: No Current occupational status: employed History of recent travel: No Current gender identity: Female Physical Exam Const: GENERAL APPEARANCE: cooperative and comfortable ORIENTATION/CONSCIOUSNESS: Yes awake, Yes oriented to person, Yes oriented to place and Yes oriented to time HENMT: COMMON NORMALS: normocephalic, atraumatic and hearing grossly normal bilaterally HEAD & SCALP: normocephalic and atraumatic Resp: COMMON NORMALS: normal respiratory effort, No retractions, No use of accessory muscles and clear to auscultation bilaterally AUSCULTATION: clear to auscultation bilaterally Cardio: RATE: tachycardic RHYTHM: abnormal rhythm irregularly irregular GI: COMMON NORMALS: Soft to palpation and No hepatosplenomegaly present AUSCULTATION: Yes normoactive bowel sounds PALPATION: Yes Soft to palpation, No Tenderness to palpation present (GI), No Guarding due to palpation present (GI) and Yes No hepatosplenomegaly present Extremity: COMMON NORMALS: normal to inspection, capillary refill normal, no clubbing, cyanosis or edema, no calf tenderness and no pedal edema Neuro: SENSORIUM/ORIENTATION: Yes oriented to person, Yes oriented to place and Yes oriented to time Skin: COMMON NORMALS: no rashes or lesions noted GENERAL SKIN EXAM: no rashes or lesions noted Course Vital Signs: Vital signs: Vital Signs Temperature 97.6 F 11/04/21 16:48 Pulse Rate 156 H 11/04/21 16:48 Respiratory Rate 20 H 11/04/21 16:48 Blood Pressure 117/76 11/04/21 16:48 Pulse Oximetry 99 11/04/21 16:48 MDM - Arrhythmia/Palpitations Medical Decision Making Patient is improved with esmolol IV drip but is still not well controlled probably will admit her to the ICU discussed Dr. Samuels orders written Medical Records I reviewed the patient's medical records. Lab Data I reviewed the patient's lab results. : 11/04/21 16:50 11/04/21 16:50 Radiology Impressions Chest X-Ray 11/04/21 16:52 IMPRESSION: No acute findings. Laboratory Results WBC 21.1 10^3/uL (4.0-10.0) H 11/04/21 16:50 RBC 5.57 10^6/uL (4.1-5.3) H 11/04/21 16:50 Hgb 16.4 g/dL (11.5-15.3) H 11/04/21 16:50 Hct 49.3 % (37.0-47.0) H 11/04/21 16:50 MCV 88.5 fl (81-99) 11/04/21 16:50 MCH 29.4 pg (28.0-34.0) 11/04/21 16:50 MCHC 33.3 g/dL (30.0-36.0) 11/04/21 16:50 RDW 12.2 % (12.1-15.1) 11/04/21 16:50 Plt Count 434 10^3/cmm (130-400) H 11/04/21 16:50 MPV 12.8 fL (7.4-10.4) H 11/04/21 16:50 Neut % (Auto) 63.6 % 11/04/21 16:50 Lymph % (Auto) 27.4 % 11/04/21 16:50 [place] % (Auto) 6.9 % 11/04/21 16:50 Eos % (Auto) 1.1 % 11/04/21 16:50 Baso % (Auto) 0.6 % 11/04/21 16:50 Neut # (Auto) 13.40 10^3/uL (1.8-7.7) H 11/04/21 16:50 Lymph # (Auto) 5.8 10^3/uL (0.8-4.8) H 11/04/21 16:50 [place] # (Auto) 1.5 10^3/uL (0.2-0.9) H 11/04/21 16:50 Eos # (Auto) 0.2 10^3/uL (0.0-0.8) 11/04/21 16:50 Baso # (Auto) 0.1 10^3/uL (0.0-0.1) 11/04/21 16:50 Nucleated RBC % (auto) 0 % 11/04/21 16:50 Nucleated RBCs # 0.0 /100WBC 11/04/21 16:50 Potassium 4.4 mmol/L (3.5-5.1) 11/04/21 16:50 Carbon Dioxide 23 mmol/L (22-29) 11/04/21 16:50 BUN 16 mg/dL (6-20) 11/04/21 16:50 Creatinine 0.7 mg/dL (0.5-0.9) 11/04/21 16:50 Calcium 9.3 mg/dL (8.5-10.5) 11/04/21 16:50 Total Bilirubin 0.7 mg/dL (0.15-1.2) 11/04/21 16:50 AST 9 U/L (0-32) 11/04/21 16:50 ALT 13 U/L (0-33) 11/04/21 16:50 Total Protein 6.7 g/dL (6.6-8.7) 11/04/21 16:50 Albumin 3.5 g/dL (3.5-5.2) 11/04/21 16:50 Globulin 3.2 g/dL (1.3-4.6) 11/04/21 16:50 Discharge Plan Discharge Patient Disposition: Admitted As Inpatient Clinical Impression: Atrial fibrillation/flutter Condition: Stable Prescriptions: No Action albuterol sulfate 2.5 mg /3 mL (0.083 %) solution for nebulization 2.5 mg inhalation QID PRN (Reason: shortness of breath or wheezing) 30 Days Qty: 75 2RF gabapentin 300 mg capsule 300 mg PO BID Qty: 60 2RF Xarelto 20 mg tablet 20 mg PO BEDTIME 30 Days Qty: 30 2RF lisinopril 20 mg tablet 20 mg PO BEDTIME Qty: 30 2RF fluticasone propion-salmeterol [Advair Diskus] 250-50 mcg/dose blister with device 1 inh inhalation BEDTIME Qty: 60 2RF duloxetine 60 mg capsule,delayed release(DR/EC) 60 mg PO BID Qty: 60 2RF albuterol sulfate [ProAir HFA] 90 mcg/actuation HFA aerosol inhaler 2 puff INHALATION Q4H PRN (Reason: Shortness Of Breath Or Wheezing) 30 Days Qty: 6.7 2RF tizanidine 2 mg tablet 2 mg PO BID Qty: 60 2RF glipizide 10 mg tablet 10 mg PO BID Qty: 60 2RF Rx Instructions: using SS NovoLog if glucose is high furosemide [Lasix] 20 mg tablet 20 mg PO QAM Qty: 30 2RF atorvastatin 40 mg tablet 40 mg PO BEDTIME Qty: 30 2RF Rx Instructions: dose increase flecainide 150 mg tablet 150 mg PO Q12H Qty: 60 2RF sucralfate [Carafate] 1 gram tablet 1 g PO TID 30 Days Qty: 90 2RF Rx Instructions: 1 hour before meals Victoza 3-Macario 0.6 mg/0.1 mL (18 mg/3 mL) pen injector 0.6 mg SUBCUT BEDTIME Qty: 9 0RF Rx Instructions: no medication sent change dose due to pain left upper Quad abdomen doxepin 10 mg capsule 10 mg PO .at bedtime Qty: 30 2RF Levemir FlexTouch U-100 Insuln 100 unit/mL (3 mL) insulin pen 60 unit SUBCUT BEDTIME Qty: 18 2RF DILT-XR 180 mg capsule,ext.rel 24h degradable 180 mg PO QAM Qty: 30 2RF clarithromycin 500 mg tablet 500 mg PO BID 14 Days Qty: 28 0RF pantoprazole [Protonix] 40 mg tablet,delayed release (DR/EC) 40 mg PO BID 14 Days Qty: 28 0RF amoxicillin 500 mg capsule 1,000 mg PO BID 14 Days Qty: 56 0RF loperamide [Anti-Diarrheal (loperamide)] 2 mg Tablet 2 - 4 mg PO PRN PRN (Reason: Diarrhea) acetaminophen [Tylenol Extra Strength] 500 mg Tablet 1,000 mg PO TID PRN (Reason: Pain) hydrocodone-acetaminophen 5-325 mg tablet 1 tab PO Q8H PRN (Reason: pain) Qty: 20 0RF ascorbate calcium (vitamin C) 500 mg Tablet 1,000 mg PO BEDTIME trolamine salicylate [Aspercreme] 10 % Cream 1 applic TOPICAL TID PRN (Reason: Pain) valerian root 500 mg Capsule 500 - 1,000 mg PO BEDTIME chlorpheniramine maleate 4 mg Tablet 4 mg PO TID PRN (Reason: Allergy Symptoms) ibuprofen 200 mg Tablet 600 mg PO TID Hold Instructions: Doctor's Order nitroglycerin [Nitrostat] 0.4 mg Tablet, Sublingual 0.4 mg SUBLINGUAL Q5M PRN (Reason: Chest Pain) Rx Instructions: do not exceed 3 doses per episode Novolog Flexpen U-100 Insulin 100 unit/mL (3 mL) insulin pen See Rx Instructions SUBCUT TID PRN (Reason: Pain) Rx Instructions: sliding scale three times daily prn 110-129=3U 130-150=6U 151-200=9U 201-250=12U 251-300=15U 301-350=18U 351-400=21U >400=24U Protonix 40 mg tablet,delayed release (DR/EC) 40 mg PO DAILY Qty: 30 2RF Referrals: Ángel Vance, [employer] [Primary Care Provider] - Patient Instructions: Opioid Safety Coding Level of Care Code ED Sneller Hand for Briana Fwd Exam Detailed
[2021-11-04] MEDS: esmolol drip 2,500 MG/250 ML PREMIX 30.48 MG IV (17:14)
--- NOTE | 2021-11-04 17:22 | PC.NURSE ---
Esmolol drip titrated per physician orders.
[2021-11-04 17:27] LABS: Basophils # 0.1 10^3/uL (0.0-0.1); Basophils % 0.6 %; Eosinophils # 0.2 10^3/uL (0.0-0.8); Eosinophils % 1.1 %; Hematocrit 49.3 % (37.0-47.0); Hemoglobin 16.4 g/dL (11.5-15.3); Lymphocytes # 5.8 10^3/uL (0.8-4.8); Lymphocytes % 27.4 %; Mean Corpuscular HGB Conc 33.3 g/dL (30.0-36.0); Mean Corpuscular Hemoglobin 29.4 pg (28.0-34.0); Mean Corpuscular Volume 88.5 fl (81-99); Mean Platelet Volume 12.8 fL (7.4-10.4); Monocytes # 1.5 10^3/uL (0.2-0.9); Monocytes % 6.9 %; Neutrophils % 63.6 %; Nucleated Red Blood Cells % 0 %; Platelet Count 434 10^3/cmm (130-400); Red Blood Count 5.57 10^6/uL (4.1-5.3); Red Cell Distribution Width 12.2 % (12.1-15.1); White Blood Count 21.1 10^3/uL (4.0-10.0)
[2021-11-04 17:41] LABS: Alanine Aminotransferase 13 U/L (0-33); Albumin Level 3.5 g/dL (3.5-5.2); Alkaline Phosphatase 151 IU/L (35-105); Anion Gap 20.4 (5-19); Aspartate Amino Transferase 9 U/L (0-32); Blood Urea Nitrogen 16 mg/dL (6-20); Calcium 9.3 mg/dL (8.5-10.5); Carbon Dioxide 23 mmol/L (22-29); Chloride 94 mmol/L (98-107); Globulin 3.2 g/dL (1.3-4.6); Glomerular Filtration Rate 86.2 mL/min (90-130); Osmolality Calculated 301 mOsm/kg (285-295); Potassium 4.4 mmol/L (3.5-5.1); Slide Review Slide Review Perform; Sodium 133 mmol/L (136-145); Total Bilirubin 0.7 mg/dL (0.15-1.2); Total Protein 6.7 g/dL (6.6-8.7)
[2021-11-04 17:42] LABS: Troponin(5th) Baseline 25 ng/L (0-10)
--- NOTE | 2021-11-04 17:53 | PC.NURSE ---
Esmolol drip titrated per physician order.
[2021-11-04 18:15] LABS: Glucose 519 mg/dL (65-115)
--- NOTE | 2021-11-04 18:18 | W.ED.ARRPALP ---
HPI - Arrhythmia/Palpitations General: Chief Complaint: Arrhythmia/Palpitations Stated Complaint: heart racing Time Seen by Provider: 11/04/21 16:49 Source: patient Mode of arrival: ambulatory History of Present Illness: 56-year-old female presents with complaint of rapid heart rate. She has a known history of atrial fibrillation flutter she comes in today in A. fib flutter. She had some mild chest comfort been going on for about the last 10 hours. She took several medicines late but did eventually take them she is on Cardizem and flecainide. She is not on any anticoagulant. Patient is a known diabetic. MD complaint: rapid heart beat and heart racing Context: occurred during rest Arrhythmia history: atrial fibrillation Associated symptoms: Deny anxiety, cough, diaphoresis, muscle cramps, nausea, paresthesias, pre-syncope, sense of impending doom, short of breath, syncope or vomiting Treatments prior to arrival: beta-janie and other (Flecainide) Review of Systems Const: Denies: fever(s), chills, fatigue, malaise or diaphoresis ENMT: Denies: throat pain, ear or mastoid pain, nasal discharge or nasal congestion Card: Denies: chest pain, syncope or pre-syncope Resp: Denies: dyspnea, productive cough or non-productive cough GI: Denies: abdominal pain, nausea or vomiting : Denies: flank pain, difficulty voiding, dysuria, urinary frequency or urinary urgency Musc: Denies: muscle cramps Skin/Breast: Denies: rash or pruritus Psych: Denies: anxiety PFSH ED PFSH: Medical History Asthma Atrial fibrillation Benign hypertension Breast cancer, left breast Breast cancer, right COPD (chronic obstructive pulmonary disease) COPD exacerbation Diabetes mellitus with hyperglycemia, with long-term current use of insulin Dyslipidemia Gastroesophageal reflux disease Open wound of foot Right great toe Osteoarthritis of spine SVT (supraventricular tachycardia) Ulcer of foot, chronic Surgical History H/O bilateral mastectomy H/O esophagogastroduodenoscopy (10/19/21) History of appendectomy History of hysterectomy Status post left breast lumpectomy Status post right breast lumpectomy Family History Father CAD (coronary artery disease) CHF (congestive heart failure) Hyperlipidemia Hypertension Lung disease Stroke Other Diabetes Denies family history of Clotting disorder Dementia Psychiatric illness Chronic kidney disease (CKD) Suicide Anesthesia complication Bleeding disorder Family history of premature coronary artery disease Cancer Social History Smoking and tobacco status: current every day smoker cigarettes Packs smoked per day: 2 Second hand smoke exposure: Yes Smoking risk assessment/counseling performed?: Yes Alcohol intake: never Desire information about alcohol rehabilitation?: No Counseling given: No Desire information about substance/drug rehabilitation?: No Counseling given: No Adopted: No Caregiver/support person: No Lives independently: Yes Household members: family Housing: House Marital status: Single Number of children: 1 service: No Current occupational status: employed History of recent travel: No Current gender identity: Female Physical Exam Const: COMMON NORMALS: no acute distress GENERAL APPEARANCE: cooperative and comfortable ORIENTATION/CONSCIOUSNESS: Yes awake, Yes oriented to person, Yes oriented to place and Yes oriented to time HENMT: COMMON NORMALS: normocephalic, atraumatic and hearing grossly normal bilaterally HEAD & SCALP: normocephalic and atraumatic Resp: COMMON NORMALS: normal respiratory effort, No retractions, No use of accessory muscles and clear to auscultation bilaterally AUSCULTATION: clear to auscultation bilaterally Cardio: RATE: tachycardic RHYTHM: abnormal rhythm irregularly irregular GI: COMMON NORMALS: Soft to palpation and No hepatosplenomegaly present AUSCULTATION: Yes normoactive bowel sounds PALPATION: Yes Soft to palpation, No Tenderness to palpation present (GI), No Guarding due to palpation present (GI) and Yes No hepatosplenomegaly present Extremity: COMMON NORMALS: normal to inspection, capillary refill normal, no clubbing, cyanosis or edema, no calf tenderness and no pedal edema Neuro: SENSORIUM/ORIENTATION: Yes oriented to person, Yes oriented to place and Yes oriented to time Skin: COMMON NORMALS: no rashes or lesions noted GENERAL SKIN EXAM: no rashes or lesions noted Course Vital Signs: Vital signs: Vital Signs Temperature 97.6 F 11/04/21 16:48 Pulse Rate 156 H 11/04/21 16:48 Respiratory Rate 20 H 11/04/21 16:48 Blood Pressure 117/76 11/04/21 16:48 Pulse Oximetry 99 11/04/21 16:48 MDM - Arrhythmia/Palpitations Medical Decision Making Patient responding somewhat to esmolol we are titrating up will admit to ICU discussed with Dr. Samuels. White count is elevated and she is hemoconcentrated we will give some fluids her blood pressure is gotten a little bit low with the increasing doses of esmolol. Her BUN and creatinine are okay she does not have a significant anion gap. She is given insulin and fluids. Discussed Dr. Samuels. Medical Records I reviewed the patient's medical records. Lab Data I reviewed the patient's lab results. : 11/04/21 16:50 11/04/21 16:50 Radiology Impressions Chest X-Ray 11/04/21 16:52 IMPRESSION: No acute findings. Laboratory Results WBC 21.1 10^3/uL (4.0-10.0) H 11/04/21 16:50 RBC 5.57 10^6/uL (4.1-5.3) H 11/04/21 16:50 Hgb 16.4 g/dL (11.5-15.3) H 11/04/21 16:50 Hct 49.3 % (37.0-47.0) H 11/04/21 16:50 MCV 88.5 fl (81-99) 11/04/21 16:50 MCH 29.4 pg (28.0-34.0) 11/04/21 16:50 MCHC 33.3 g/dL (30.0-36.0) 11/04/21 16:50 RDW 12.2 % (12.1-15.1) 11/04/21 16:50 Plt Count 434 10^3/cmm (130-400) H 11/04/21 16:50 MPV 12.8 fL (7.4-10.4) H 11/04/21 16:50 Neut % (Auto) 63.6 % 11/04/21 16:50 Lymph % (Auto) 27.4 % 11/04/21 16:50 [place] % (Auto) 6.9 % 11/04/21 16:50 Eos % (Auto) 1.1 % 11/04/21 16:50 Baso % (Auto) 0.6 % 11/04/21 16:50 Neut # (Auto) 13.40 10^3/uL (1.8-7.7) H 11/04/21 16:50 Lymph # (Auto) 5.8 10^3/uL (0.8-4.8) H 11/04/21 16:50 [place] # (Auto) 1.5 10^3/uL (0.2-0.9) H 11/04/21 16:50 Eos # (Auto) 0.2 10^3/uL (0.0-0.8) 11/04/21 16:50 Baso # (Auto) 0.1 10^3/uL (0.0-0.1) 11/04/21 16:50 Nucleated RBC % (auto) 0 % 11/04/21 16:50 Nucleated RBCs # 0.0 /100WBC 11/04/21 16:50 Sodium 133 mmol/L (136-145) L 11/04/21 16:50 Potassium 4.4 mmol/L (3.5-5.1) 11/04/21 16:50 Chloride 94 mmol/L (98-107) L 11/04/21 16:50 Carbon Dioxide 23 mmol/L (22-29) 11/04/21 16:50 Anion Gap 20.4 (5-19) H 11/04/21 16:50 BUN 16 mg/dL (6-20) 11/04/21 16:50 Creatinine 0.7 mg/dL (0.5-0.9) 11/04/21 16:50 GFR Calculation 86.2 mL/min (90-130) L 11/04/21 16:50 Glucose 519 mg/dL (65-115) H* 11/04/21 16:50 Calculated Osmolality 301 mOsm/kg (285-295) H 11/04/21 16:50 Calcium 9.3 mg/dL (8.5-10.5) 11/04/21 16:50 Total Bilirubin 0.7 mg/dL (0.15-1.2) 11/04/21 16:50 AST 9 U/L (0-32) 11/04/21 16:50 ALT 13 U/L (0-33) 11/04/21 16:50 Alkaline Phosphatase 151 IU/L (35-105) H 11/04/21 16:50 Troponin T Baseline 25 ng/L (0-10) H 11/04/21 16:50 Total Protein 6.7 g/dL (6.6-8.7) 11/04/21 16:50 Albumin 3.5 g/dL (3.5-5.2) 11/04/21 16:50 Globulin 3.2 g/dL (1.3-4.6) 11/04/21 16:50 Discharge Plan Discharge Patient Disposition: Admitted As Inpatient Clinical Impression: Atrial fibrillation/flutter Condition: Stable Coding Level of Care Code ED Obgyn Hospitalist Physician for Briana Nj
[2021-11-04] MEDS: insulin regular-human 100 units/1 mL 10 UNIT IVP (18:39)
[2021-11-04] MEDS: sodium chloride 0.9% 1,000 ML 999 ML IV ×3 (18:40→19:26)
--- NOTE | 2021-11-04 19:10 | PC.NURSE ---
esmolol paused on arrival to room during bedside report
--- NOTE | 2021-11-04 19:20 | PC.NURSE ---
dr smith at bedside, notified of current patient status, total interventions performed on patient thus far and current vital signs. new verbal orders for x 1000ml ns iv bolus stat, clarified need for amio bolus as no existing order prior to drip, new verbal order for x 1 stat 150mg amiodarone bolus iv, new verbal order for x 1 BMP after completion of normal saline bolus, and to call results to his phone at [phone].
--- NOTE | 2021-11-04 19:29 | PC.NURSE ---
fsbs 291 dr smith at bedside notified
--- NOTE | 2021-11-04 19:33 | P.HP_ITS ---
Providers/Chief Complaint Admitting Physician: Emperatriz Samuels MD Primary Care Provider: Ángel Vance, FISH PROCESSING SUPERVISOR-C Chief Complaint: heart racing History of Present Illness Soni Head is a 56 year old female with past medical history of atrial fibrillation on Xarelto, flecainide and Cardizem, type 2 diabetes mellitus on Levemir, Victoza, hypertension, dyslipidemia who presented to the ER today because of feeling palpitations, dizziness, difficulty to see along with nausea since today morning since he woke up. As per the patient she recently had an endoscopy and was found to have a H. pylori infection for which she was started on antibiotics. She was told by the pharmacy that there is an interaction between flecainide and antibiotic so she stopped taking her fleca inide for last 1 week. Patient forgot to take her Levemir overnight. In the ER she was found to be having tachycardia with heart rate going up to 150s with a systolic blood pressure of 99 mmHg. She was started on esmolol drip and given 10 units of IV insulin and 1 L of IV fluids Blood work was done which showed a white count 21,000 hemoglobin of 16.4, sodium 133, creatinine of 0.7, blood glucose of 519. Examination patient's blood pressures were low in 70s systolics. She was complaining of dizziness and nausea with family at bedside. Drip was switched over to amiodarone with a bolus of 150. She was given 2 more units of IV fluid boluses after which her heart rate came down to 80s to 90s atrial fibrillation along with systolic blood pressure of 98 mmHg. Patient was awake and alert and able to give me complete history. She denies of having any nausea, vomiting, dizziness in the last few days, dysuria, diarrhea, fevers. Review of Systems General: Reports: 10 or more systems reviewed and unremarkable except in HPI and below Const: Denies: fever(s), chills or body aches Eyes: Denies: change in vision, blurry vision or photophobia ENMT: Reports: hoarseness; Denies: throat pain, enlarged tonsils, odynophagia or nasal congestion Card: Denies: chest pain, palpitations, irregular heart rhythm, edema, swelling of feet/ankles, lightheadedness, pre-syncope, dyspnea on exertion or orthopnea Resp: Denies: dyspnea, productive cough, non-productive cough, wheezing, stridor, pain on inspiration, change in phlegm color, hemoptysis or chest congestion GI: Denies: abdominal pain, nausea, vomiting, hematemesis, coffee ground em esis, dysphagia, heartburn, diarrhea, constipation, GI cramping, change in stool character, hematochezia or melena : Denies: flank pain, difficulty voiding, dysuria, urinary frequency, urinary urgency, urinary hesitancy or hematuria Musc: Denies: neck pain, back pain, extremity pain, joint swelling, joint warmth or deformity Neuro: Denies: headache(s), numbness in extremities, weakness in extremities, sensory changes, difficulty walking, frequent falls, dizziness, vertigo, behavioral changes, Slurred speech present or seizure-like activity Psych: Denies: anxiety, depression, suicidal ideation or homicidal ideation Endo: Denies: polyuria, polydipsia, tired all the time, cold intolerance or hot flashes Tio/Lymph: Denies: easy bruising or easy bleeding Medications/Allergies Home Medications Medication Instructions Recorded Confirmed Last Taken Type albuterol sulfate 2.5 mg (3 mL) inhalation QID PRN 02/25/20 11/04/21 Unknown Rx shortness of breath or wheezing 30 days #75 mL acetaminophen 500 mg tablet 1,000 mg PO TID PRN Pain 06/29/20 11/04/21 05/08/21 History (Tylenol Extra Strength) loperamide 2 mg tablet 2 - 4 mg PO PRN PRN Diarrhea 06/29/20 11/04/21 Unknown History (Anti-Diarrheal (loperamide)) hydrocodone 5 mg-acetaminophen 325 1 tab PO Q8H PRN pain #20 tabs 05/08/21 11/04/21 Unknown Rx mg tablet chlorpheniramine maleate 4 mg 4 mg PO TID PRN Allergy Symptoms 06/18/21 11/04/21 10/19/21 07:00 History tablet ibuprofen 200 mg tablet 600 mg PO TID PRN Pain 06/18/21 11/04/21 07/08/21 History nitroglycerin 0.4 mg sublingual 0.4 mg sublingual Q5M PRN Chest 06/18/21 11/04/21 Unknown History tablet (Nitrostat) Pain valerian root 500 mg capsule 500 - 1,000 mg PO BEDTIME 06/18/21 11/04/21 11/03/21 History ascorbate calcium (vitamin C) 500 1,000 mg PO BEDTIME 07/09/21 11/04/21 11/03/21 History mg tablet trolamine salicylate 10 % topical 1 applic topical TID PRN Pain 07/09/21 11/04/21 10/18/21 History cream (Aspercreme) albuterol sulfate 90 mcg/actuation 2 puff inhalation Q4H PRN 10/08/21 11/04/21 Unknown Rx aerosol inhaler (ProAir HFA) Shortness Of Breath Or Wheezing 30 days #6.7 grams atorvastatin 40 mg tablet 40 mg PO BEDTIME #30 tabs 10/08/21 11/04/21 11/03/21 Rx duloxetine 60 mg capsule,delayed 60 mg PO BID #60 caps 10/08/21 11/04/21 11/04/21 Rx release furosemide 20 mg tablet (Lasix) 20 mg PO QAM #30 tabs 10/08/21 11/04/21 11/04/21 Rx glipizide 10 mg tablet 10 mg PO BID #60 tabs 10/08/21 11/04/21 11/04/21 Rx lisinopril 20 mg tablet 20 mg PO BEDTIME #30 tabs 10/08/21 11/04/21 11/03/21 Rx rivaroxaban 20 mg tablet (Xarelto) 20 mg PO BEDTIME 30 days #30 tabs 10/08/21 11/04/21 11/03/21 Rx sucralfate 1 gram tablet (Carafate) 1 g PO TID 30 days #90 tabs 10/08/21 11/04/21 11/04/21 Rx insulin detemir U-100 100 unit/mL 60 unit (0.6 mL) SUBCUT BEDTIME 10/11/21 11/04/21 11/03/21 Rx (3 mL) subcutaneous pen (Levemir #18 mL FlexTouch U-100 Insulin) insulin aspart U-100 100 unit/mL See Rx Instructions SUBCUT TID PRN 10/18/21 11/04/21 Unknown History (3 mL) subcutaneous pen (Novolog Pain Flexpen U-100 Insulin aspart) pantoprazole 40 mg tablet,delayed 40 mg PO DAILY #30 tabs 10/19/21 11/04/21 11/03/21 Rx release (Protonix) diltiazem HCl 180 mg 180 mg PO QAM #30 caps 10/22/21 11/04/21 11/04/21 Rx capsule,extended release 24 hr, controlled (DILT-XR) liraglutide 0.6 mg/0.1 mL (18 mg/3 0.6 mg (0.1 mL) SUBCUT BEDTIME #9 10/25/21 11/04/21 11/03/21 Rx mL) subcutaneous pen injector mL (Victoza 3-Macario) amoxicillin 500 mg capsule 1,000 mg PO BID 14 days #56 caps 10/26/21 11/04/21 11/04/21 Rx clarithromycin 500 mg tablet 500 mg PO BID 14 days #28 tabs 10/26/21 11/04/21 11/04/21 Rx doxepin 10 mg capsule 10 mg PO BEDTIME 11/04/21 11/04/21 11/03/21 History tizanidine 2 mg tablet 2 mg PO BID PRN Muscle Spasm 11/04/21 11/04/21 Unknown History Allergies Allergy/AdvReac Type Severity Reaction Status Date / Time azithromycin [From Zithromax] Allergy Unknown ADR-Gastrointestinal Verified 10/25/21 11:11 Upset sulfamethoxazole Allergy Unknown ADR-Gastrointestinal Verified 10/25/21 11:11 [From Bactrim] Upset trimethoprim [From Bactrim] Allergy Unknown ADR-Gastrointestinal Verified 10/25/21 11:11 Upset PFSH Acute PFSH: Medical History (Updated 11/04/21 @ 19:38 by Emperatriz Samuels MD) Asthma Atrial fibrillation Benign hypertension Breast cancer, left breast Breast cancer, right COPD (chronic obstructive pulmonary disease) COPD exacerbation Diabetes mellitus with hyperglycemia, with long-term current use of insulin Dyslipidemia Gastroesophageal reflux disease Open wound of foot Right great toe Osteoarthritis of spine SVT (supraventricular tachycardia) Ulcer of foot, chronic Surgical History H/O bilateral mastectomy H/O esophagogastroduodenoscopy (10/19/21) History of appendectomy History of hysterectomy Status post left breast lumpectomy Status post right breast lumpectomy Family History Father CAD (coronary artery disease) CHF (congestive heart failure) Hyperlipidemia Hypertension Lung disease Stroke Other Diabetes Denies family history of Clotting disorder Dementia Psychiatric illness Chronic kidney disease (CKD) Suicide Anesthesia complication Bleeding disorder Family history of premature coronary artery disease Cancer Social History Smoking and tobacco status: current every day smoker cigarettes Packs smoked per day: 2 Second hand smoke exposure: Yes Smoking risk assessment/counseling performed?: Yes Alcohol intake: never Desire information about alcohol rehabilitation?: No Counseling given: No Desire information about substance/drug rehabilitation?: No Counseling given: No Adopted: No Caregiver/support person: No Lives independently: Yes Household members: family Housing: House Marital status: Single Number of children: 1 service: No Current occupational status: employed History of recent travel: No Current gender identity: Female Vitals/I&O/Wt Last Vital Signs Temp 97.6 F 11/04/21 16:48 Pulse 137 H 11/04/21 19:06 Resp 19 H 11/04/21 19:06 BP 103/74 11/04/21 19:06 Pulse Ox 100 11/04/21 19:06 11/04/21 11/04/21 11/04/21 06:59 14:59 22:59 Intake Total 1167.957 / 1167.957 Balance 1167.957 / 1167.957 Weight last 48 hrs Weight 101.605 kg Physical Exam Narrative: General: No acute distress, anxious, AOx3 HEENT: PERRLA, pupils bilaterally equal and reactive, pallors not present Chest: Normal vesicular breath sounds, no added sounds, equal good air entry bilaterally CVS: S1-S2 irregularly irregular, tachycardia, no gallops, no rubs Abdomen: Soft, nontender, no organomegaly, bowel sounds present Neuro: No focal deficits, no facial deformity, AO x3, power 5/5 in all limbs Extremities: Healthy surgical dressing present on the right hip, mild tenderness, soft no erythema. Data : 11/04/21 16:50 11/04/21 16:50 A&P Assessment and plan (1) Atrial fibrillation/flutter: Has missed her dose of flecainide for over a week. Stop esmolol drip and switch to amiodarone drip after 150 mg IV bolus. Restart flecainide from tomorrow morning. EKG daily to monitor QTC. Continue with home dose of Xarelto. Continue with home dose of Cardizem. Status: Acute (2) Hypotension: Keep mean artery pressure over 65 with systolic blood pressure less than 140/90 mmHg Patient dehydrated. After third liter of IV bolus continue with normal saline at 75 cc/h. Monitor for fluid overload. Less likely septic. Patient does have leukocytosis but could be secondary to dehydration and reactionary. Check blood culture, procalcitonin, urinalysis. For now empirically start on IV ceftriaxone 1 g daily. We will de-escalate antibiotics rapidly. Status: Acute (3) Hyperglycemia due to type 2 diabetes mellitus: 519 on presentation to the ER. Missed her dose of Levemir last night. Took Victoza. Mild anion gap of 16. Getting 3 L IV fluid bolus. Repeat BMP. If anion gap still elevated will start on insulin drip. Otherwise start on insulin sliding scale at moderate dose protocol. Continue Levemir at 60 units at nighttime. Status: Acute (4) Leukocytosis: Most likely reactionary as above. Treatment as above. Status: Acute Plan Continue other chronic medications including atorvastatin, doxepin, Cymbalta, hydrocortisone, Carafate Full code. Carb consistent diet. Xarelto will help with DVT prophylaxis Protonix for PUD prophylaxis. Admit to ICU Attestations Medical Necessity Statement*: Admission for more than 2 midnights for samara gement of atrial fibrillation with rapid ventricular response, leukocytosis, hypotension while sepsis is ruled out, hyperglycemia with type 2 diabetes mellitus while DKA is ruled out Critical Care Time: The high probability of a clinically significant, sudden or life threatening deterioration of the patient's [cardiac, endocrine, pul monary, renal] system(s) required my full and direct attention, intervention and personal management. The critical care time is as shown. This time is in addition to time spent performing any reported procedures but includes the following: [x] Data and vital sign review and interpretation [x] Patient assessment, examination and intervention [x] Documentation [x] Medication orders and management Critical Care Time (min): 90 Coding Level of Care Code Acute Tetryl Blender Operator for Chg Fwd History Comprehensive Exam Comprehensive Medical Decision Making High Complexity Diagnoses Atrial fibrillation/flutter Hypotension I95.9 Hyperglycemia due to type 2 diabetes mellitus E11.65 Leukocytosis D72.829
[2021-11-04 19:58] LABS: Glucose Point of Care 291 mg/dL (70-110)
--- NOTE | 2021-11-04 20:03 | PC.NURSE ---
attempted report at this time.
[2021-11-04 20:10] LABS: Troponin 5 2HR 19.27 ng/L (0-10)
--- NOTE | 2021-11-04 20:10 | PC.NURSE ---
patient moved from trendelenburg to semi escamilla, given ice water with permission of dr smith, tolerating well hemodynamically without nausea or dizziness, reports fatigue, gcs 15. see vitals charting.
[2021-11-04 20:17] LABS: Troponin 5 2HR Delta -5.73 ABS# (0-10)
--- NOTE | 2021-11-04 20:25 | PC.NURSE ---
report called to sheila dawson, patient accepted to icu 6
[2021-11-04 20:29] LABS: NT Pro B Type Natriuretic Pept 1889 pg/mL (0-125); Procalcitonin 0.04 ng/mL (0-0.5); Thyroid Stimulating Hormone 2.16 uIU/mL (0.27-4.20)
[2021-11-04 20:40] LABS: Blood Urea Nitrogen 16 mg/dL (6-20); Calcium 8.3 mg/dL (8.5-10.5); Carbon Dioxide 21 mmol/L (22-29); Chloride 102 mmol/L (98-107); Glucose 274 mg/dL (65-115); Osmolality Calculated 297 mOsm/kg (285-295); Sodium 138 mmol/L (136-145)
[2021-11-04 20:47] LABS: Anion Gap 18.8 (5-19); Potassium 3.8 mmol/L (3.5-5.1)
[2021-11-04 20:52] LABS: D Dimer 0.93 ug/mIFEU (0-0.59)
[2021-11-04] MEDS: atorvastatin 40 mg Tablet PO (21:18)
[2021-11-04] MEDS: sucralfate 1 gm Tablet PO (21:18)
[2021-11-04] MEDS: rivaroxaban 10 mg Tablet 20 MG PO (21:19)
[2021-11-04] MEDS: cefTRIAXone 1,000 MG in sodium chloride 0.9% (plus) 50 ML 100 MG IV (21:38)
[2021-11-04] MEDS: sodium chloride 0.9% 1,000 ML 75 ML IV (21:38)
[2021-11-04] MEDS: doxepin 10 mg Capsule PO (21:43)
[2021-11-04] MEDS: insulin lispro 100 unit/1 mL SUBCUT (21:49)
[2021-11-05] VITALS (138 sets, daily range): BP systolic 62–154; BP diastolic 48–96; PULSE 67–137; TEMP 36.6–36.9; O2SAT 90–98
--- NOTE | 2021-11-05 03:46 | PC.NURSE ---
3 NS boluses received in ER, stopped in MAY.
[2021-11-05 04:34] LABS: Basophils # 0.1 10^3/uL (0.0-0.1); Basophils % 0.5 %; Eosinophils # 0.3 10^3/uL (0.0-0.8); Eosinophils % 1.9 %; Hematocrit 33.9 % (37.0-47.0); Hemoglobin 11.1 g/dL (11.5-15.3); Lymphocytes # 3.4 10^3/uL (0.8-4.8); Mean Corpuscular HGB Conc 32.7 g/dL (30.0-36.0); Mean Corpuscular Hemoglobin 30.2 pg (28.0-34.0); Mean Corpuscular Volume 92.4 fl (81-99); Mean Platelet Volume 12.5 fL (7.4-10.4); Monocytes # 1.1 10^3/uL (0.2-0.9); Monocytes % 8.1 %; Neutrophils % 64.1 %; Nucleated Red Blood Cells % 0 %; Platelet Count 234 10^3/cmm (130-400); Red Blood Count 3.67 10^6/uL (4.1-5.3); Red Cell Distribution Width 12.4 % (12.1-15.1); White Blood Count 13.4 10^3/uL (4.0-10.0)
[2021-11-05 04:52] LABS: Estmated Average Glucose 260; Hemoglobin A1C 10.7 % (4.0-6.0)
[2021-11-05 05:04] LABS: Alanine Aminotransferase 7 U/L (0-33); Albumin Level 2.1 g/dL (3.5-5.2); Alkaline Phosphatase 85 IU/L (35-105); Blood Urea Nitrogen 12 mg/dL (6-20); Calcium 6.6 mg/dL (8.5-10.5); Carbon Dioxide 19 mmol/L (22-29); Chloride 114 mmol/L (98-107); Chol HDL Ratio 4.15 mg/dL (0.0-4.40); Cholesterol 108 mg/dL (0-200); Globulin 2.1 g/dL (1.3-4.6); Glomerular Filtration Rate 229.3 mL/min (90-130); Glucose 106 mg/dL (65-115); HDL Cholesterol 26 mg/dL (60-100); LDL Cholesterol Calculated 61 mg/dL (50-129); LDL HDL Ratio 2.35 RATIO (0.00-3.22); Magnesium 1.3 mg/dL (1.7-2.3); Osmolality Calculated 294 mOsm/kg (285-295); Phosphorus 2.6 mg/dL (2.5-4.5); Sodium 142 mmol/L (136-145); Total Bilirubin 0.4 mg/dL (0.15-1.2); Total Protein 4.2 g/dL (6.6-8.7); Triglycerides 104 mg/dL (0-150)
[2021-11-05] MEDS: dilTIAZem ER (24HR) 180 mg Capsule PO (05:15)
[2021-11-05 05:21] LABS: Anion Gap 12.2 (5-19); Aspartate Amino Transferase 9 U/L (0-32); Potassium 3.2 mmol/L (3.5-5.1)
--- NOTE | 2021-11-05 06:50 | ECG_ITS ---
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 Measurements Intervals [place] Rate: 136 P: 227 [place]: 150 QRS: 3 QRSD: 97 T: 45 QT: 329 QTc: 495 Interpretive Statements SINUS TACHYCARDIA Compared to ECG 11/04/2021 16:42:18 Atrial flutter no longer present Intraventricular conduction delay no longer present Electronically Signed On 11-05-2021 13:11:40 CDT by Santo Hinojosa M.D. [email or web address] [id number] [email or web address]
[2021-11-05] MEDS: sodium chloride 0.9% 250 ML IV (07:05)
[2021-11-05 07:32] LABS: Urine Appearance Clear (CLEAR); Urine Color Dark Yellow (Yellow)
[2021-11-05 07:33] LABS: Add Urine Culture? No; Add Urine Microscopic? YES; Bacteria Urine 1+ /hpf; Bilirubin Urine Neg (Negative); Blood Urine Neg (Negative); Glucose Urine UA 4+ (Normal); Ketones Urine Negative (Negative); Leukocyte Esterase Urine 1+ (Negative); Nitrate Urine Negative (Negative); Protein Urine 1+ (Negative); Urobilinogen Urine Norm (Negative); pH Urine 6 (5-7)
[2021-11-05] MEDS: flecainide 100 mg Tablet 150 MG PO ×2 (07:33→18:07)
[2021-11-05 07:51] LABS: Glucose Point of Care 104 mg/dL (70-110)
[2021-11-05 07:51] LABS: Glucose Point of Care 284 mg/dL (70-110)
[2021-11-05] MEDS: pantoprazole DR 40 mg Tablet PO (08:28)
[2021-11-05] MEDS: sucralfate 1 gm Tablet PO ×3 (08:28→21:02)
[2021-11-05] MEDS: docusate sodium 100 mg Capsule PO ×2 (08:28→18:07)
[2021-11-05] MEDS: lidocaine 1% 5 ML in potassium chloride premix 100 ML 25 ML IV (08:28)
[2021-11-05] MEDS: duloxetine 60 mg Capsule PO ×2 (08:28→18:07)
[2021-11-05] MEDS: magnesium sulfate premix 4 GM/100 ML PREMIX IV (10:47)
[2021-11-05 11:44] LABS: Glucose Point of Care 83 mg/dL (70-110)
[2021-11-05] MEDS: sodium chloride 0.9% 1,000 ML 75 ML IV (11:56)
[2021-11-05] MEDS: acetaminophen 325 mg Tablet 650 MG PO (15:38)
--- NOTE | 2021-11-05 16:38 | P.PN_ITS ---
Subjective Subjective: She has been feeling generally weak/worn out. Denies chest pain or pressure. Does not have trouble breathing. This morning got lightheaded temporarily with increase in heart rate and decrease in blood pressure. Appears this happened with getting up to the commode. Vitals/I&O/Wt Last Vital Signs Temp 98.1 F 11/05/21 14:24 Pulse 70 11/05/21 14:25 Resp 20 H 11/04/21 20:00 BP 116/62 11/05/21 14:25 Pulse Ox 95 11/05/21 12:15 O2 Del Method 11/05/21 08:00 11/05/21 11/05/21 11/05/21 06:59 14:59 22:59 Intake Total 334.513 / 3655.470 2091.841 / 209.841 Output Total 0 / 0 100 / 100 Balance 334.513 / 3655.470 1990.841 / 1990.841 Weight last 48 hrs Weight 103.691 kg Weight 103.691 kg Weight 101.605 kg Physical Exam Const: COMMON NORMALS: patient oriented x3 and alert GENERAL APPEARANCE: cooperative NUTRITIONAL APPEARANCE: obese ORIENTATION/CONSCIOUSNESS: Yes awake HENMT: COMMON NORMALS: oropharynx normal Neck/C-Spine: COMMON NORMALS: no JVD Resp: COMMON NORMALS: normal respiratory effort and clear to auscultation bilaterally AUSCULTATION: clear to auscultation bilaterally Cardio: COMMON NORMALS: no JVD, regular rhythm, S1 normal heart sound present, S2 normal heart sound present and No murmurs present (Cardio) RHYTHM: regular rhythm HEART SOUNDS: S1 normal heart sound present and S2 normal heart sound present GI: COMMON NORMALS: Normal to inspection, nondistended, normoactive bowel sounds present, Soft to palpation and non-tender PALPATION: Yes Soft to palpation Extremity: COMMON NORMALS: no joint enlargement and no pedal edema Neuro: COMMON NORMALS: patient oriented x3 and moves all extremities SE NSORIUM/ORIENTATION: Yes alert Skin: COMMON NORMALS: no rashes or lesions noted GENERAL SKIN EXAM: no rashes or lesions noted Data : 11/05/21 03:26 11/05/21 03:26 Micro: Microbiology 11/04/21 20:25 Blood Culture - Preliminary Blood SPECIMEN COLLECTED 11/04/21 20:25 Blood Culture - Preliminary Blood SPECIMEN COLLECTED A&P Assessment and plan (1) Atrial fibrillation/flutter: Flecainide was restarted for this morning. She was having some lightheadedness and it appears he was during getting up the same time was tachycardic as well. Continue amiodarone drip, complete 24 hours, transition to p.o. amnio. Heart rate has been better controlled overall. If remains controlled well with resuming flecainide, hopefully should be able to wean off amiodarone and not needed long-term. Discussed with her. Otherwise will need to have an appropriate amiodarone organ injury monitoring. EKG daily to monitor QTC. Continue with home dose of Xarelto. Continue with home dose of Cardizem. Status: Acute (2) Hypotension: Keep mean artery pressure over 65 with systolic blood pressure less than 140/90 mmHg Received IV hydration. Hold off further IV fluid. P.o. intake as tolerating. Less likely septic. Repeat UA. Patient does have leukocytosis but could be secondary to dehydration and reac tionary. Follow-up with blood culture. Has normal procalcitonin For now empirically on IV ceftriaxone 1 g daily. Blood pressure overall is better. Is found to be still orthostatic. Discussed with her to make sure to let someone know if she needs to get up so that she may get assistance. Status: Acute (3) Hyperglycemia due to type 2 diabetes mellitus: Glucose is little bit better. Continue detemir, Humalog. 519 on presentation to the ER. Missed her dose of Levemir last night. Took Victoza. Had mild anion gap of 16. Got 3 L IV fluid bolus. Status: Acute (4) Leukocytosis: Most likely reactionary as above. Treatment as above. Status: Acute Plan Continue other chronic medications including atorvastatin, doxepin, Cymbalta, hydrocortisone, Carafate Full code. Carb consistent diet. Xarelto will help with DVT prophylaxis Protonix for PUD prophylaxis. Admit to ICU Attestations Medical Necessity Statement*: Continue optimize control of A. fib with RVR, with hypotension, orthostatic hypotension. Coding Level of Care Code Acute Resource Specialist for Chg Fwd Diagnoses Atrial fibrillation/flutter Hypotension I95.9 Hyperglycemia due to type 2 diabetes mellitus E11.65 Leukocytosis D72.829
[2021-11-05 18:02] LABS: Glucose Point of Care 156 mg/dL (70-110)
[2021-11-05] MEDS: amiodarone 200 mg Tablet PO (18:07)
[2021-11-05] MEDS: insulin lispro 100 unit/1 mL SUBCUT ×2 (18:08→21:01)
[2021-11-05 20:46] LABS: Glucose Point of Care 216 mg/dL (70-110)
[2021-11-05] MEDS: rivaroxaban 10 mg Tablet 20 MG PO (21:02)
[2021-11-05] MEDS: doxepin 10 mg Capsule PO (21:02)
[2021-11-05] MEDS: atorvastatin 40 mg Tablet PO (21:03)
[2021-11-05] MEDS: cefTRIAXone 1,000 MG in sodium chloride 0.9% (plus) 50 ML 100 MG IV (21:04)
[2021-11-06] VITALS (47 sets, daily range): BP systolic 117–169; BP diastolic 64–110; PULSE 72–115; TEMP 36.8; O2SAT 90–98; BMI 36.8
[2021-11-06 04:09] LABS: Basophils # 0.1 10^3/uL (0.0-0.1); Basophils % 0.6 %; Eosinophils # 0.3 10^3/uL (0.0-0.8); Eosinophils % 3.1 %; Hematocrit 37.2 % (37.0-47.0); Hemoglobin 12.4 g/dL (11.5-15.3); Lymphocytes # 3.7 10^3/uL (0.8-4.8); Lymphocytes % 34.9 %; Mean Corpuscular HGB Conc 33.3 g/dL (30.0-36.0); Mean Corpuscular Volume 89.9 fl (81-99); Mean Platelet Volume 12.4 fL (7.4-10.4); Monocytes # 0.8 10^3/uL (0.2-0.9); Monocytes % 7.5 %; Neutrophils # 5.61 10^3/uL (1.8-7.7); Neutrophils % 53.5 %; Nucleated Red Blood Cells % 0 %; Platelet Count 242 10^3/cmm (130-400); Red Blood Count 4.14 10^6/uL (4.1-5.3); Red Cell Distribution Width 12.4 % (12.1-15.1); White Blood Count 10.5 10^3/uL (4.0-10.0)
[2021-11-06 04:40] LABS: Blood Urea Nitrogen 9 mg/dL (6-20); Calcium 7.7 mg/dL (8.5-10.5); Carbon Dioxide 23 mmol/L (22-29); Chloride 110 mmol/L (98-107); Glomerular Filtration Rate 229.3 mL/min (90-130); Glucose 198 mg/dL (65-115); Magnesium 1.9 mg/dL (1.7-2.3); Osmolality Calculated 300 mOsm/kg (285-295); Sodium 143 mmol/L (136-145)
[2021-11-06 04:45] LABS: Anion Gap 14.1 (5-19); Potassium 4.1 mmol/L (3.5-5.1)
[2021-11-06] MEDS: flecainide 100 mg Tablet 150 MG PO (06:02)
[2021-11-06] MEDS: dilTIAZem ER (24HR) 180 mg Capsule PO (06:02)
[2021-11-06 07:39] LABS: Glucose Point of Care 77 mg/dL (70-110)
[2021-11-06] MEDS: sucralfate 1 gm Tablet PO (08:29)
[2021-11-06] MEDS: amiodarone 200 mg Tablet PO (08:30)
[2021-11-06] MEDS: docusate sodium 100 mg Capsule PO (08:30)
[2021-11-06] MEDS: pantoprazole DR 40 mg Tablet PO (08:30)
[2021-11-06] MEDS: duloxetine 60 mg Capsule PO (08:30)
--- NOTE | 2021-11-06 10:32 | PC.CHAP ---
Pastoral Care Encounter/Spiritual Assessment Type of Contact [] Declined claim service representative visit [] Patient/Family/Request visit [] Outpatient visit [] Follow-up visit [] Physician referral [] Code/Alert [x] Routine visit [] Staff referral [] Actively dying [x] Patient sleeping [] Family support [] [] Out of room [] Palliative care [] [] Receiving care in room [] Pre-surgical visit [] Trauma [] Long length of stay [x] ICU visit [] Other: Relational/Emotional Strength [] Patient feels connected with others/family/visitors/staff [] Distress [] Loneliness/isolation [] Abandonment Spirituality of Patient [] Person of Mikayla [] Attends Moravian of their Mikayla [] Believes in Prayer [] Reads Bible or Mandaeism materials [] There are Spiritual issues to be addressed Traffic Control Operator Interventions [x] Prayer [] Active listening [] Non-anxious presence [] Spiritual/emotional support [] Crisis/trauma care [] Spiritual counseling [] Bereavement support [] Provided bereavement packet [] Provided Bible/devotional materials [] Provided toy/stuffed animal, coloring book to patient or family member [] Provided Communion [] Anointing/[place] [] Salvation [x] Completed spiritual assessment [] Other: Impact on Illness or Injury [] Angry [] Fearful [] Anxious [] Often cries [] Exhaustion [] Unable to work [] Unable to attend gnosticist [] Unable to walk/stand [] Unable to read [] Unable to drive [] Unable to eat/drink [] Unable to sleep [] Unable to be with family [] Patient intubated [] Other: Summary Time spent with patient
[2021-11-06 11:46] LABS: Glucose Point of Care 132 mg/dL (70-110)
--- NOTE | 2021-11-06 13:14 | PM.DCS ---
Discharge Providers Date of Admission: 11/04/21 19:32 Date of Discharge: November 06, 2021 Attending Provider at Admission: Emperatriz Samuels MD Attending Provider at Discharge: Binu Interiano Primary Care Provider: RICHARD Flores Diagnoses at Discharge Discharge Diagnosis (1) Atrial fibrillation/flutter: Status: Acute (2) Hypotension: Status: Acute (3) Hyperglycemia due to type 2 diabetes mellitus: Status: Acute (4) Leukocytosis: Status: Acute Reason for Visit Reason for Visit: heart racing Physical Exam Const: COMMON NORMALS: patient oriented x3 and alert GENERAL APPEARANCE: cooperative NUTRITIONAL APPEARANCE: obese ORIENTATION/CONSCIOUSNESS: Yes awake HENMT: COMMON NORMALS: oropharynx normal Neck/C-Spine: COMMON NORMALS: no JVD Resp: COMMON NORMALS: normal respiratory effort and clear to auscultation bilaterally AUSCULTATION: clear to auscultation bilaterally Cardio: COMMON NORMALS: no JVD, regular rhythm, S1 normal heart sound present, S2 normal heart sound present and No murmurs present (Cardio) RHYTHM: regular rhythm HEART SOUNDS: S1 normal heart sound present and S2 normal heart sound present GI: COMMON NORMALS: Normal to inspection, nondistended, normoactive bowel sounds present, Soft to palpation and non-tender PALPATION: Yes Soft to palpation Extremity: COMMON NORMALS: no joint enlargement and no pedal edema Neuro: COMMON NORMALS: patient oriented x3 and moves all extremities SENSORIUM/ORIENTATION: Yes alert Skin: COMMON NORMALS: no rashes or lesions noted GENERAL SKIN EXAM: no rashes or lesions noted Discharge Data Studies Completed and Pending Completed Studies During Hospitalization Category Date Time Status XR chest 1V portable [id number] Stat Exams 11/04/21 16:52 Completed Pending at discharge Category Date Time Status Basic Metabolic Panel AM LABS Lab 11/07/21 04:00 Ordered Basic Metabolic Panel AM LABS Lab 11/08/21 04:00 Ordered Blood Culture Stat Lab 11/04/21 20:25 Results Complete Blood Count w/Auto AM LABS Lab 11/07/21 04:00 Ordered Complete Blood Count w/Auto AM LABS Lab 11/08/21 04:00 Ordered Magnesium AM LABS Lab 11/07/21 04:00 Ordered Magnesium AM LABS Lab 11/08/21 04:00 Ordered Radiology Impressions Chest X-Ray 11/04/21 16:52 IMPRESSION: No acute findings. Laboratory Results WBC 10.5 10^3/uL (4.0-10.0) H 11/06/21 03:26 RBC 4.14 10^6/uL (4.1-5.3) 11/06/21 03:26 Hgb 12.4 g/dL (11.5-15.3) 11/06/21 03:26 Hct 37.2 % (37.0-47.0) 11/06/21 03:26 MCV 89.9 fl (81-99) 11/06/21 03:26 MCH 30.0 pg (28.0-34.0) 11/06/21 03:26 MCHC 33.3 g/dL (30.0-36.0) 11/06/21 03:26 RDW 12.4 % (12.1-15.1) 11/06/21 03:26 Plt Count 242 10^3/cmm (130-400) 11/06/21 03:26 MPV 12.4 fL (7.4-10.4) H 11/06/21 03:26 Neut % (Auto) 53.5 % 11/06/21 03:26 Lymph % (Auto) 34.9 % 11/06/21 03:26 [place] % (Auto) 7.5 % 11/06/21 03:26 Eos % (Auto) 3.1 % 11/06/21 03:26 Baso % (Auto) 0.6 % 11/06/21 03:26 Neut # (Auto) 5.61 10^3/uL (1.8-7.7) 11/06/21 03:26 Lymph # (Auto) 3.7 10^3/uL (0.8-4.8) 11/06/21 03:26 [place] # (Auto) 0.8 10^3/uL (0.2-0.9) 11/06/21 03:26 Eos # (Auto) 0.3 10^3/uL (0.0-0.8) 11/06/21 03:26 Baso # (Auto) 0.1 10^3/uL (0.0-0.1) 11/06/21 03:26 Nucleated RBC % (auto) 0 % 11/06/21 03:26 Nucleated RBCs # 0.0 /100WBC 11/06/21 03:26 D-Dimer 0.93 ug/mIFEU (0-0.59) H 11/04/21 20:25 Sodium 143 mmol/L (136-145) 11/06/21 03:26 Potassium 4.1 mmol/L (3.5-5.1) 11/06/21 03:26 Chloride 110 mmol/L (98-107) H 11/06/21 03:26 Carbon Dioxide 23 mmol/L (22-29) 11/06/21 03:26 Anion Gap 14.1 (5-19) 11/06/21 03:26 BUN 9 mg/dL (6-20) 11/06/21 03:26 Creatinine 0.3 mg/dL (0.5-0.9) L 11/06/21 03:26 GFR Calculation 229.3 mL/min (90-130) H 11/06/21 03:26 Glucose 198 mg/dL (65-115) H 11/06/21 03:26 POC Glucose 132 mg/dL (70-110) H 11/06/21 11:44 Estimat Average Glucose 260 11/05/21 03:26 Hemoglobin A1c 10.7 % (4.0-6.0) H 11/05/21 03:26 Calculated Osmolality 300 mOsm/kg (285-295) H 11/06/21 03:26 Calcium 7.7 mg/dL (8.5-10.5) L 11/06/21 03:26 Phosphorus 2.6 mg/dL (2.5-4.5) 11/05/21 03:26 Magnesium 1.9 mg/dL (1.7-2.3) 11/06/21 03:26 Total Bilirubin 0.4 mg/dL (0.15-1.2) 11/05/21 03:26 AST 9 U/L (0-32) 11/05/21 03:26 ALT 7 U/L (0-33) 11/05/21 03:26 Alkaline Phosphatase 85 IU/L (35-105) 11/05/21 03:26 Troponin T Baseline 25 ng/L (0-10) H 11/04/21 16:50 Troponin T 120 Minute 19.27 ng/L (0-10) H 11/04/21 19:40 Delta Troponin T -5.73 ABS# (0-10) L 11/04/21 19:40 Troponin T Hi Sens 6Hr 14.30 ng/L (0-10) H 11/04/21 22:30 Troponin T Hi Sens 6Hr Delta -10.70 ng/L (0-12) L 11/04/21 22:30 NT-Pro-B Natriuret Pep 1889 pg/mL (0-125) H 11/04/21 19:40 Total Protein 4.2 g/dL (6.6-8.7) L D 11/05/21 03:26 Albumin 2.1 g/dL (3.5-5.2) L 11/05/21 03:26 Globulin 2.1 g/dL (1.3-4.6) 11/05/21 03:26 Triglycerides 104 mg/dL (0-150) 11/05/21 03:26 Cholesterol 108 mg/dL (0-200) 11/05/21 03:26 LDL Cholesterol, Calc 61 mg/dL (50-129) 11/05/21 03:26 HDL Cholesterol 26 mg/dL (60-100) L 11/05/21 03:26 LDL/HDL Ratio 2.35 RATIO (0.00-3.22) 11/05/21 03:26 Cholesterol/HDL Ratio 4.15 mg/dL (0.0-4.40) 11/05/21 03:26 Procalcitonin 0.04 ng/mL (0-0.5) 11/04/21 19:40 TSH 2.16 uIU/mL (0.27-4.20) 11/04/21 19:40 Urine Color Dark yellow (Yellow) 11/05/21 06:30 Urine Appearance Clear (CLEAR) 11/05/21 06:30 Urine pH 6 (5-7) 11/05/21 06:30 Ur Specific [place] 1.010 (1.005-1.030) 11/05/21 06:30 Urine Protein 1+ (Negative) H 11/05/21 06:30 Urine Glucose (UA) 4+ (Normal) H 11/05/21 06:30 Urine Ketones Negative (Negative) 11/05/21 06:30 Urine Blood Neg (Negative) 11/05/21 06:30 Urine Nitrate Negative (Negative) 11/05/21 06:30 Urine Bilirubin Neg (Negative) 11/05/21 06:30 Urine Urobilinogen Norm mg/dL (Negative) 11/05/21 06:30 Ur Leukocyte Esterase 1+ (Negative) H 11/05/21 06:30 Urine RBC None /hpf (0-2) 11/05/21 06:30 Urine WBC 10-15 /hpf (0-5) H 11/05/21 06:30 Ur Squamous Epith Cells 10-15 /hpf (0-5) H 11/05/21 06:30 Amorphous Sediment Not Reportable 11/05/21 06:30 Urine Bacteria 1+ /hpf (NONE) H 11/05/21 06:30 Vitals Last Vital Signs Temp 98.2 F 11/06/21 04:00 Pulse 78 11/06/21 09:50 Resp 20 H 11/04/21 20:00 BP 160/83 11/06/21 09:50 Pulse Ox 96 11/06/21 08:30 O2 Del Method 11/05/21 08:00 Discharge Plan Discharge Patient Disposition: Home Condition: Stable Prescriptions: New levofloxacin 500 mg tablet 500 mg PO DAILY 3 Days Qty: 3 0RF amiodarone [Pacerone] 200 mg Tablet See Rx Instructions .ROUTE .COMPLEX Qty: 90 0RF Rx Instructions: Take 200 mg twice daily for 6 days, then decrease to 100 mg twice daily flecainide 100 mg tablet 100 mg PO Q12H Qty: 90 0RF midodrine 5 mg tablet 5 mg PO TID Qty: 90 0RF Rx Instructions: do not give last dose of day after 6PM or within 4 hrs of bedtime Continued albuterol sulfate 2.5 mg /3 mL (0.083 %) solution for nebulization 2.5 mg inhalation QID PRN (Reason: shortness of breath or wheezing) 30 Days Qty: 75 2RF Xarelto 20 mg tablet 20 mg PO BEDTIME 30 Days Qty: 30 2RF duloxetine 60 mg capsule,delayed release(DR/EC) 60 mg PO BID Qty: 60 2RF albuterol sulfate [ProAir HFA] 90 mcg/actuation HFA aerosol inhaler 2 puff INHALATION Q4H PRN (Reason: Shortness Of Breath Or Wheezing) 30 Days Qty: 6.7 2RF glipizide 10 mg tablet 10 mg PO BID Qty: 60 2RF atorvastatin 40 mg tablet 40 mg PO BEDTIME Qty: 30 2RF Rx Instructions: dose increase sucralfate [Carafate] 1 gram tablet 1 g PO TID 30 Days Qty: 90 2RF Rx Instructions: 1 hour before meals Victoza 3-Macario 0.6 mg/0.1 mL (18 mg/3 mL) pen injector 0.6 mg SUBCUT BEDTIME Qty: 9 0RF Rx Instructions: no medication sent change dose due to pain left upper Quad abdomen Levemir FlexTouch U-100 Insuln 100 unit/mL (3 mL) insulin pen 60 unit SUBCUT BEDTIME Qty: 18 2RF DILT-XR 180 mg capsule,ext.rel 24h degradable 180 mg PO QAM Qty: 30 2RF loperamide [Anti-Diarrheal (loperamide)] 2 mg Tablet 2 - 4 mg PO PRN PRN (Reason: Diarrhea) acetaminophen [Tylenol Extra Strength] 500 mg Tablet 1,000 mg PO TID PRN (Reason: Pain) hydrocodone-acetaminophen 5-325 mg tablet 1 tab PO Q8H PRN (Reason: pain) Qty: 20 0RF ascorbate calcium (vitamin C) 500 mg Tablet 1,000 mg PO BEDTIME trolamine salicylate [Aspercreme] 10 % Cream 1 applic TOPICAL TID PRN (Reason: Pain) tizanidine 2 mg tablet 2 mg PO BID PRN (Reason: Muscle Spasm) doxepin 10 mg capsule 10 mg PO BEDTIME valerian root 500 mg Capsule 500 - 1,000 mg PO BEDTIME chlorpheniramine maleate 4 mg Tablet 4 mg PO TID PRN (Reason: Allergy Symptoms) nitroglycerin [Nitrostat] 0.4 mg Tablet, Sublingual 0.4 mg SUBLINGUAL Q5M PRN (Reason: Chest Pain) Rx Instructions: do not exceed 3 doses per episode insulin aspart U-100 [Novolog Flexpen U-100 Insulin] 100 unit/mL (3 mL) insulin pen See Rx Instructions SUBCUT TID PRN (Reason: Pain) Rx Instructions: sliding scale three times daily prn 110-129=3U 130-150=6U 151-200=9U 201-250=12U 251-300=15U 301-350=18U 351-400=21U >400=24U pantoprazole [Protonix] 40 mg tablet,delayed release (DR/EC) 40 mg PO DAILY Qty: 30 2RF Changed furosemide [Lasix] 20 mg tablet 20 mg PO QAM PRN (Reason: Edema) Qty: 30 2RF Discontinued lisinopril 20 mg tablet 20 mg PO BEDTIME Qty: 30 2RF clarithromycin 500 mg tablet 500 mg PO BID 14 Days Qty: 28 0RF amoxicillin 500 mg capsule 1,000 mg PO BID 14 Days Qty: 56 0RF ibuprofen 200 mg Tablet 600 mg PO TID PRN (Reason: Pain) Hold Instructions: Doctor's Order Discharge Orders: Discharge Order (Routine); Ordered 11/06/21 Ordered By: Binu Interiano Referrals: Theodora Valladares MD [Physician] - 1 week (Poss DC amio) Ángel Vance FNP-C [Primary Care Provider] - 4-7 days Discharge Diet: Cardiac and Diabetic Discharge Activity: Limit activity as instructed Patient Instructions: Amiodarone (By mouth), Flecainide (By mouth), A-fib (Atrial Fibrillation) (GEN) Activity Restrictions/Additional Instructions: Please maintain orthostatic precautions. Please rise slowly from laying to sitting and sitting to standing due to orthostatic hypotension. Her blood pressures are better, but this still decreased when you stand. Please measure blood pressures laying sitting and standing twice a day, record values to bring to your appointment with your director supply chain and your primary doctor. Please lisinopril for now until I see that your blood pressures are no longer low. Discussed with your primary doctor when to restart lisinopril, or resume it initially at half dose if your blood pressures stay above 150 top number or 90 bottom number. Please measure heart rates twice a day as well, record values. Please discuss with your director supply chain and primary doctor when it may be safe for you to stop taking amiodarone. In case you stay on amiodarone long-term you will need additional monitoring for amiodarone associated organ injury. Please discuss with your primary doctor. Please revisit with your primary doctor regarding treatment for H. pylori which for now is held due to difficulties with tachycardia and having to restart flecainide. Please continue follow-up with your electrophysiology doctor. Discharge Attestations Time Spent in Discharge Care*: greater than 30 min Quality Metrics Clinical Quality Measures [ No reported AMI, CVA or VTE this stay] Coding Level of Care Code Acute Chg FW DC note Diagnoses Atrial fibrillation/flutter Hypotension I95.9 Hyperglycemia due to type 2 diabetes mellitus E11.65 Leukocytosis D72.829
== END 2021-11-06 14:58 | disposition home or self-care (01) | DRG 309 ==
LOC: ER 19:18 → ICU 11-05 03:19
PROVIDERS: Family Medicine; Admitting Provider Student in an Organized Health Care Education/Training Program; PCP Nurse Practitioner; Visit Provider Internal Medicine
DX: I48.91 Unspecified atrial fibrillation (principal); N39.0 Urinary tract infection, site not specified; E11.65 Type 2 diabetes mellitus with hyperglycemia; I10 Essential (primary) hypertension; E78.5 Hyperlipidemia, unspecified; J44.9 Chronic obstructive pulmonary disease, unspecified; Z85.3 Personal history of malignant neoplasm of breast; K21.9 Gastro-esophageal reflux disease without esophagitis; M47.9 Spondylosis, unspecified; Z90.13 Acquired absence of bilateral breasts and nipples; F17.210 Nicotine dependence, cigarettes, uncomplicated; I95.9 Hypotension, unspecified; Z79.51 Long term (current) use of inhaled steroids; Z79.01 Long term (current) use of anticoagulants; Z79.84 Long term (current) use of oral hypoglycemic drugs; Z79.4 Long term (current) use of insulin; Z79.891 Long term (current) use of opiate analgesic
CPT/HCPCS: 36415; 36416; 71045; 80048; 80053; 80061; 81001; 82962; 83036; 83735; 83880; 84100; 84145; 84443; 84484; 85025; 85378; 87040; 93005; 94664; 96365; 96372; 99291; J0282; J0696; J1815; J3475; J3480; J3490; J7030; J7050; J7060

== ENCOUNTER → 2021-11-14 09:11 | Outpatient (BNVA) | payer MEDICAID, SELFPAY | PROVIDERS: PCP Nurse Practitioner; Visit Provider Podiatrist Foot & Ankle Surgery | DX: E11.621 Type 2 diabetes mellitus with foot ulcer (principal); L97.522 Non-pressure chronic ulcer of other part of left foot with fat layer exposed; E11.610 Type 2 diabetes mellitus with diabetic neuropathic arthropathy; E11.42 Type 2 diabetes mellitus with diabetic polyneuropathy; M79.672 Pain in left foot; L60.3 Nail dystrophy; Z79.4 Long term (current) use of insulin | CPT/HCPCS: 73630; 99214 ==

== ENCOUNTER 2021-11-20 13:17 | Outpatient (CLI) | payer MEDICAID, SELFPAY ==
--- NOTE | 2021-11-20 14:00 | MR_ITS ---
WS: [id number] MRI THORACIC SPINE WITHOUT CONTRAST TECHNIQUE: Sagittal T1, T2 and STIR imaging. Axial T2 imaging. Noncontrast imaging obtained. CLINICAL INFORMATION: M79.2 - Neuralgia and neuritis, unspecified COMPARISON: None. FINDINGS: Mild thoracic curve. Mild thoracic kyphosis. No acute compression. No high-grade central canal stenos is. Cord signal is normal. Mild to moderate facet arthropathy lower thoracic spine. Normal caliber thoracic aorta. Adrenal gland s are normal. Mild disc osteophyte complex C4-C5 with mild central canal stenosis on the senior network engineer imagin g. Tiny shallow central protrusion T7-T8 with slight contact of the thoracic cord and slight indentation . No significant central canal stenosis. Mild RIGHT T9-T10 bony foraminal narrowing. Normal CSF pulsa tion artifact in the dorsal spinal canal. MR/MR thoracic spin wo con* [id number] IMPRESSION: 1. Mild thoracic curve. Mild thoracic kyphosis. No acute compression. No high- grade central canal stenosis. 2. Cord signal is normal. 3. Shallow central protrusion T7-T8 with slight indentation on the thoracic co rd. No significant central canal stenosis. 4. Mild to moderate facet arthropathy lower thoracic spine. 5. Mild bony foraminal narrowing RIGHT T9-T10 6. Mild disc osteophyte complex C4-C5 with mild central canal stenosis and STI R imaging.
== END 2021-11-20 13:18 | disposition home or self-care (01) ==
PROVIDERS: PCP Nurse Practitioner; Visit Provider Nurse Practitioner Family
DX: M79.2 Neuralgia and neuritis, unspecified (principal); M25.78 Osteophyte, vertebrae; M47.814 Spondylosis without myelopathy or radiculopathy, thoracic region; M51.24 Other intervertebral disc displacement, thoracic region; M40.294 Other kyphosis, thoracic region
CPT/HCPCS: 72146

== ENCOUNTER → 2021-11-21 15:14 | Outpatient (BNVA) | payer MEDICAID, SELFPAY | PROVIDERS: PCP Nurse Practitioner; Visit Provider Internal Medicine Cardiovascular Disease | DX: I48.91 Unspecified atrial fibrillation (principal); I48.92 Unspecified atrial flutter; Z79.01 Long term (current) use of anticoagulants; E11.65 Type 2 diabetes mellitus with hyperglycemia; Z79.4 Long term (current) use of insulin; I10 Essential (primary) hypertension; Z79.899 Other long term (current) drug therapy; E78.5 Hyperlipidemia, unspecified; F17.210 Nicotine dependence, cigarettes, uncomplicated | CPT/HCPCS: 99214 ==

== ENCOUNTER 2021-12-06 15:56 | Emergency (ER) | payer MEDICAID, SELFPAY ==
[2021-12-06 16:07] VITALS: BP 117/72; PULSE 77; RESP 18; TEMP 36.7; O2SAT 95; BMI 37.8
--- NOTE | 2021-12-06 16:24 | XRR_ITS ---
PROCEDURE INFORMATION: Exam: XR Chest Exam date and time: 12/06/2021 4:48 PM Age: 56 years old Clinical indication: Shortness of breath; Additional info: Cp and SOB TECHNIQUE: Imaging protocol: Radiologic exam of the chest. Views: 1 view. COMPARISON: CR (CHEST, ) 11/04/2021 4:56 PM FINDINGS: Lungs: A calcified granuloma in the left lung apex is stable compared with prior x-rays. The lungs are otherwise clear. Pleural spaces: Unremarkable. No pleural effusion. No pneumothorax. Heart/Mediastinum: Unremarkable. No cardiomegaly. Bones/joints: Unremarkable. XR/XR chest 1V portable [id number] IMPRESSION: No acute findings
--- NOTE | 2021-12-06 16:24 | ECG_ITS ---
[facility] Test Date: 2021-12-06 Pat Name: Soni Head Department: Room: Gender: Female Statistics Tutor: : 1965 Requested By: Henri Marquis Order Number: [id number] Reyes MD: Santo Hinojosa M.D. Measurements Intervals [place] Rate: 73 P: 43 MI: 208 QRS: 72 QRSD: 116 T: 49 QT: 445 QTc: 491 Interpretive Statements SINUS RHYTHM LOW QRS VOLTAGE IN EXTREMITY LEADS [QRS DEFLECTION < 0.5 mV IN LIMB LEADS] MODERATE INTRAVENTRICULAR CONDUCTION DELAY [110+ ms QRS DURATION] Compared to ECG 11/05/2021 06:50:59 Low QRS voltage now present Intraventricular conduction delay now present Sinus tachycardia no longer present Electronically Signed On 12-07-2021 0:18:08 CDT by Santo Hinojosa M.D. [email or web address]
--- NOTE | 2021-12-06 16:25 | W.ED.ALLEREA ---
HPI - Allergic Reaction General: Chief complaint: Allergic Reaction Stated complaint: med reaction? Time Seen by Provider: 12/06/21 16:15 History of Present Illness: HPI narrative: Patient is a 56-year-old female comes to the ED with possible allergic reaction to vaccination. Past medical history of COPD, A. fib and type 2 diabetes. Earlier today patient received shingles vaccination and within an hour she started feeling chest pain, shortness of breath, palpitations and fatigue. All symptoms started while she was at rest. Chest pain and shortness of breath resolved before coming to the ED. Her chest pain and shortness of breath resolved before coming to the ED. She still feels very fatigued. She has an erythemic rash on right hand but says its not painful or itchy. Denies any diaphoresis, throat tightness, lip or tongue swelling. Associated symptoms: Deny abdominal pain, nausea or vomiting Review of Systems Const: Reports: fatigue; Denies: fever(s) or chills Eyes: Denies: change in vision or eye discomfort ENMT: Denies: throat pain, odynophagia, nasal discharge or nasal congestion Card: Reports: chest pain (Episode of chest pain ) and palpitations (Episode of palpitations); Denies: edema, swelling of feet/ankles, dyspnea on exertion or orthopnea Resp: Reports: dyspnea (Episode of shortness of breath); Denies: productive cough or non-productive cough GI: Denies: abdominal pain, nausea, vomiting, diarrhea, constipation or hematochezia : Denies: flank pain, dysuria or hematuria Musc: Denies: neck pain, back pain or extremity swelling Skin/Breast: Reports: rash (Erythemic rash on right hand); Denies: new lesions Neuro: Denies: headache(s), numbness in extremities or weakness in extremities PFS ED PFSH: Medical History Asthma Atrial fibrillation Benign hypertension Breast cancer, left breast Breast cancer, right COPD (chronic obstructive pulmonary disease) COPD exacerbation Diabetes mellitus with hyperglycemia, with long-term current use of insulin Dyslipidemia Gastroesophageal reflux disease Open wound of foot Right great toe Osteoarthritis of spine SVT (supraventricular tachycardia) Ulcer of foot, chronic Surgical History H/O bilateral mastectomy H/O esophagogastroduodenoscopy (10/19/21) History of appendectomy History of hysterectomy Status post left breast lumpectomy Status post right breast lumpectomy Family History Father CAD (coronary artery disease) CHF (congestive heart failure) Hyperlipidemia Hypertension Lung disease Stroke Other Diabetes Denies family history of Clotting disorder Dementia Psychiatric illness Chronic kidney disease (CKD) Suicide Anesthesia complication Bleeding disorder Family history of premature coronary artery disease Cancer Social History Smoking and tobacco status: current every day smoker cigarettes Packs smoked per day: 2 Second hand smoke exposure: Yes Smoking risk assessment/counseling performed?: Yes Alcohol intake: never Desire information about alcohol rehabilitation?: No Counseling given: No Desire information about substance/drug rehabilitation?: No Counseling given: No Adopted: No Caregiver/support person: No Lives independently: Yes Household members: family Housing: House Marital status: Single Number of children: 1 service: No Current occupational status: employed History of recent travel: No Current gender identity: Female Physical Exam Const: COMMON NORMALS: no acute distress, patient oriented x3 and alert GENERAL APPEARANCE: cooperative and comfortable HENMT: COMMON NORMALS: normocephalic HEAD & SCALP: normocephalic MOUTH: Normal oral and palatal mucosa present THROAT: posterior oropharynx normal and uvula midline Neck/C-Spine: COMMON NORMALS: supple GENERAL: Yes normal visual inspection Resp: COMMON NORMALS: normal respiratory effort, No retractions, No use of accessory muscles and clear to auscultation bilaterally AUSCULTATION: clear to auscultation bilaterally Cardio: COMMON NORMALS: regular rate, regular rhythm, S1 normal heart sound present, S2 normal heart sound present, No gallops present (Cardio), No clicks present (Cardio), No murmurs present (Cardio) and Peripheral pulses 2+ throughout RATE: regular rate RHYTHM: regular rhythm HEART SOUNDS: S1 normal heart sound present and S2 normal heart sound present PERIPHERAL PULSES: Peripheral pulses 2+ throughout GI: COMMON NORMALS: Normal to inspection, nondistended, normoactive bowel sounds present, Soft to palpation, non-tender and no masses PALPATION: Yes Soft to palpation : COMMON NORMALS: Yes no CVA tenderness BLADDER/KIDNEY EXAM: Yes no CVA tenderness Back/Pelvis: COMMON NORMALS: no CVA tenderness Extremity: COMMON NORMALS: normal to inspection Neuro: COMMON NORMALS: patient oriented x3 SENSORIUM/ORIENTATION: Yes alert GAIT: Yes Normal gait present Skin: NARRATIVE SKIN EXAM: Right hand erythemic macular rash. Nontender and it is not warm. GENERAL SKIN EXAM: dry skin Course Vital Signs: Vital signs: Vital Signs Temperature 98.1 F 12/06/21 16:07 Pulse Rate 77 12/06/21 16:07 Respiratory Rate 18 12/06/21 16:07 Blood Pressure 117/72 12/06/21 16:07 Pulse Oximetry 95 12/06/21 16:07 Oxygen Delivery Me thod 12/06/21 16:07 MDM - Allergic Reaction Medical Decision Making Patient is a 56-year-old female comes to the ED with episode of chest pain, shortness of breath, palpitations, fatigue and rash approximately 30 minutes after getting shingles vaccination. All her symptoms resolved for coming to the ED except the rash on her hand. She is not having any chest pain, heart palpitations or shortness of breath here in the ED. vitals are stable. Exam shows right hand erythemic macular rash is nontender with no warmth. Rest of patient exam is benign. Labs are unremarkable. Troponins negative. EKG showed no acute findings. Chest x-ray showed no acute findings. Patient was given a dose of Benadryl and Solu-Medrol here in the ED and she was feeling completely normal but still had the right hand rash. Symptoms likely are reaction from vaccination. Patient was stable for discharge home and told to follow-up with PCP in the next week for reevaluation. Return to ED precautions given. Patient understood and agreed with plan. Lab Data I reviewed the patient's lab results. : 12/06/21 16:31 12/06/21 16:31 Radiology Impressions Chest X-Ray 12/06/21 16:24 IMPRESSION: No acute findings Laboratory Results WBC 12.3 10^3/uL (4.0-10.0) H 12/06/21 16:31 RBC 5.01 10^6/uL (4.1-5.3) 12/06/21 16:31 Hgb 14.9 g/dL (11.5-15.3) 12/06/21 16:31 Hct 44.2 % (37.0-47.0) 12/06/21 16: MCV 88.2 fl (81-99) 12/06/21 16: MCH 29.7 pg (28.0-34.0) 12/06/21 16: MCHC 33.7 g/dL (30.0-36.0) 12/06/21 16: RDW 12.9 % (12.1-15.1) 12/06/21 16:31 Plt Count 327 10^3/cmm (130-400) 12/06/21 16:31 MPV 11.0 fL (7.4-10.4) H 12/06/21 16:31 Neut % (Auto) 50.6 % 12/06/21 16: Lymph % (Auto) 37.1 % 12/06/21 16:31 [place] % (Auto) 8.0 % 12/06/21 16: Eos % (Auto) 2.9 % 12/06/21 16: Baso % (Auto) 1.0 % 12/06/21 16: Neut # (Auto) 6.21 10^3/uL (1.8-7.7) 12/06/21 16: Lymph # (Auto) 4.6 10^3/uL (0.8-4.8) 12/06/21 16:31 [place] # (Auto) 1.0 10^3/uL (0.2-0.9) H 12/06/21 16:31 Eos # (Auto) 0.4 10^3/uL (0.0-0.8) 12/06/21 16: Baso # (Auto) 0.1 10^3/uL (0.0-0.1) 12/06/21 16: Nucleated RBC % (auto) 0 % 12/06/21 16: Nucleated RBCs # 0.0 /100WBC 12/06/21 16:31 Sodium 138 mmol/L (136-145) 12/06/21 16:31 Potassium 3.8 mmol/L (3.5-5.1) 12/06/21 16:31 Chloride 99 mmol/L (98-107) 12/06/21 16: Carbon Dioxide 28 mmol/L (22-29) 09/15/22 16:31 Anion Gap 14.8 (5-19) 12/06/21 16:31 BUN 10 mg/dL (6-20) 12/06/21 16:31 Creatinine 0.5 mg/dL (0.5-0.9) 12/06/21 16:31 GFR Calculation 127.2 mL/min (90-130) 12/06/21 16:31 Glucose 246 mg/dL (65-115) H 12/06/21 16:31 Calculated Osmolality 293 mOsm/kg (285-295) 12/06/21 16:31 Calcium 8.9 mg/dL (8.5-10.5) 12/06/21 16:31 Total Bilirubin 0.3 mg/dL (0.15-1.2) 12/06/21 16:31 AST 7 U/L (0-32) 12/06/21 16:31 ALT 9 U/L (0-33) 12/06/21 16:31 Alkaline Phosphatase 124 U/L (35-105) H 12/06/21 16:31 Troponin T Baseline 8 ng/L (0-10) 12/06/21 16:31 Troponin T 120 Minute 6.59 ng/L (0-10) 12/06/21 18:26 Delta Troponin T -1.41 ABS# (0-10) L 12/06/21 18:26 Total Protein 6.1 g/dL (6.6-8.7) L 12/06/21 16:31 Albumin 3.4 g/dL (3.5-5.2) L 12/06/21 16:31 Globulin 2.7 g/dL (1.3-4.6) 12/06/21 16:31 EKG Data EKG 1: EKG interpretation date: 12/06/21 Interpretation: Normal sinus rhythm, no ST segment elevation or depression seen, 73 bpm. Discharge Plan Discharge Patient Disposition: Home Clinical Impression: Post-vaccination reaction Qualifiers: Encounter type: initial encounter Qualified Code(s): T88.1XXA - Other complications following immunization, not elsewhere classified, initial encounter Condition: Stable Prescriptions: No Action Pacerone 200 mg tablet 100 mg PO BID Xarelto 20 mg tablet 20 mg PO BEDTIME 30 Days Qty: 30 2RF duloxetine 60 mg capsule,delayed release(DR/EC) 60 mg PO BID Qty: 60 2RF glipizide 10 mg tablet 10 mg PO BID Qty: 60 2RF sucralfate [Carafate] 1 gram tablet 1 g PO TID 30 Days Qty: 90 2RF Rx Instructions: 1 hour before meals amoxicillin 500 mg tablet 1,000 mg PO TID 14 Days Qty: 84 0RF esomeprazole magnesium [Nexium] 40 mg capsule,delayed release(DR/EC) 40 mg PO TID 14 Days Qty: 42 0RF Rx Instructions: Hold Protonix for 14 days then restart. Victoza 3-Macario 0.6 mg/0.1 mL (18 mg/3 mL) pen injector 0.6 mg SUBCUT BEDTIME Qty: 9 0RF Rx Instructions: no medication sent change dose due to pain left upper Quad abdomen Levemir FlexTouch U-100 Insuln 100 unit/mL (3 mL) insulin pen 60 unit SUBCUT BEDTIME Qty: 18 2RF DILT-XR 180 mg capsule,ext.rel 24h degradable 180 mg PO QAM Qty: 30 2RF loperamide [Anti-Diarrheal (loperamide)] 2 mg Tablet 2 - 4 mg PO PRN PRN (Reason: Diarrhea) acetaminophen [Tylenol Extra Strength] 500 mg Tablet 1,000 mg PO TID PRN (Reason: Pain) ascorbate calcium (vitamin C) 500 mg Tablet 1,000 mg PO BEDTIME trolamine salicylate [Aspercreme] 10 % Cream 1 applic TOPICAL TID PRN (Reason: Pain) tizanidine 2 mg tablet 2 mg PO BID PRN (Reason: Muscle Spasm) doxepin 10 mg capsule 10 mg PO BEDTIME Lasix 20 mg tablet 20 mg PO QAM PRN (Reason: Edema) Qty: 30 2RF flecainide 100 mg tablet 100 mg PO Q12H Qty: 90 0RF midodrine 5 mg tablet 5 mg PO TID Qty: 90 0RF Rx Instructions: do not give last dose of day after 6PM or within 4 hrs of bedtime valerian root 500 mg Capsule 500 - 1,000 mg PO BEDTIME chlorpheniramine maleate 4 mg Tablet 4 mg PO TID PRN (Reason: Allergy Symptoms) nitroglycerin [Nitrostat] 0.4 mg Tablet, Sublingual 0.4 mg SUBLINGUAL Q5M PRN (Reason: Chest Pain) Rx Instructions: do not exceed 3 doses per episode pantoprazole [Protonix] 40 mg tablet,delayed release (DR/EC) 40 mg PO DAILY Qty: 30 2RF Hold Instructions: Change to Nexium for 14 days. Then restart Discharge Orders: Discharge ED (Routine); Ordered 12/06/21 Ordered By: Henri Marquis Referrals: Ángel Vance, DRYING CAN WORKER-C [Primary Care Provider] - Discharge Diet: Regular Discharge Activity: Increase activity as tolerated Activity Restrictions/Additional Instructions: Follow-up with medical provider as directed in the next 5 to 7 days reevaluation. Continue taking all home medications as previously prescribed. Return to the ER or your medical provider if condition worsens. Please read and understand discharge instructions. Thank you for choosing [facility] for your healthcare needs today. Please realize this is an emergency room and that we are providing you with a medical screening exam and this may not be complete and all inclusive of all the testing and or work up that you may need to determine your ailment or severity of your illness. It is very important that you follow up as instructed or that you return to the Emergency Department should you have concerns or if your condition changes or worsens in any way. Coding Level of Care Code ED Area Safety Manager for Briana Fwsalome Exam Comprehensive
[2021-12-06] MEDS: diphenhydrAMINE 50 mg/mL SDV 1mL 25 MG IVP (16:43)
[2021-12-06 16:44] LABS: Basophils # 0.1 10^3/uL (0.0-0.1); Eosinophils # 0.4 10^3/uL (0.0-0.8); Eosinophils % 2.9 %; Hematocrit 44.2 % (37.0-47.0); Hemoglobin 14.9 g/dL (11.5-15.3); Lymphocytes # 4.6 10^3/uL (0.8-4.8); Lymphocytes % 37.1 %; Mean Corpuscular HGB Conc 33.7 g/dL (30.0-36.0); Mean Corpuscular Hemoglobin 29.7 pg (28.0-34.0); Mean Corpuscular Volume 88.2 fl (81-99); Neutrophils # 6.21 10^3/uL (1.8-7.7); Neutrophils % 50.6 %; Nucleated Red Blood Cells % 0 %; Platelet Count 327 10^3/cmm (130-400); Red Blood Count 5.01 10^6/uL (4.1-5.3); Red Cell Distribution Width 12.9 % (12.1-15.1); White Blood Count 12.3 10^3/uL (4.0-10.0)
[2021-12-06 17:12] LABS: Alanine Aminotransferase 9 U/L (0-33); Anion Gap 14.8 (5-19); Aspartate Amino Transferase 7 U/L (0-32); Carbon Dioxide 28 mmol/L (22-29); Chloride 99 mmol/L (98-107); Globulin 2.7 g/dL (1.3-4.6); Potassium 3.8 mmol/L (3.5-5.1); Sodium 138 mmol/L (136-145); Total Bilirubin 0.3 mg/dL (0.15-1.2)
[2021-12-06 17:21] LABS: Troponin(5th) Baseline 8 ng/L (0-10)
[2021-12-06 17:30] LABS: Blood Urea Nitrogen 10 mg/dL (6-20); Calcium 8.9 mg/dL (8.5-10.5); Glomerular Filtration Rate 127.2 mL/min (90-130); Osmolality Calculated 293 mOsm/kg (285-295)
[2021-12-06 17:49] LABS: Albumin Level 3.4 g/dL (3.5-5.2); Alkaline Phosphatase 124 U/L (35-105); Glucose 246 mg/dL (65-115); Total Protein 6.1 g/dL (6.6-8.7)
[2021-12-06] MEDS: acetaminophen 325 mg Tablet 650 MG PO (18:57)
[2021-12-06 19:50] LABS: Troponin 5 2HR 6.59 ng/L (0-10)
[2021-12-06 20:05] LABS: Troponin 5 2HR Delta -1.41 ABS# (0-10)
== END 2021-12-06 19:30 | disposition home or self-care (01) ==
PROVIDERS: Emergency Provider Physician Assistant; PCP Nurse Practitioner
DX: L27.0 Generalized skin eruption due to drugs and medicaments taken internally (principal); T50.Z95A Adverse effect of other vaccines and biological substances, initial encounter; J44.9 Chronic obstructive pulmonary disease, unspecified; I48.91 Unspecified atrial fibrillation; E11.65 Type 2 diabetes mellitus with hyperglycemia; E78.5 Hyperlipidemia, unspecified; Z79.4 Long term (current) use of insulin; Z79.84 Long term (current) use of oral hypoglycemic drugs; F17.210 Nicotine dependence, cigarettes, uncomplicated
CPT/HCPCS: 71045; 80053; 84484; 85025; 93005; 96374; 96375; 99285; J1200; J2930

== ENCOUNTER → 2021-12-17 09:06 | Outpatient (BNVA) | payer MEDICAID, SELFPAY | PROVIDERS: PCP Nurse Practitioner; Visit Provider Podiatrist Foot & Ankle Surgery | DX: E11.621 Type 2 diabetes mellitus with foot ulcer (principal); L97.522 Non-pressure chronic ulcer of other part of left foot with fat layer exposed; E11.610 Type 2 diabetes mellitus with diabetic neuropathic arthropathy; E11.42 Type 2 diabetes mellitus with diabetic polyneuropathy; L60.3 Nail dystrophy; Z79.4 Long term (current) use of insulin | CPT/HCPCS: 73630; 99213; 99214 ==

== ENCOUNTER → 2022-01-16 11:18 | Outpatient (BNVA) | payer MEDICAID, SELFPAY | PROVIDERS: PCP Nurse Practitioner; Visit Provider Podiatrist Foot & Ankle Surgery | DX: E11.610 Type 2 diabetes mellitus with diabetic neuropathic arthropathy (principal); E11.42 Type 2 diabetes mellitus with diabetic polyneuropathy; L60.3 Nail dystrophy; Z79.4 Long term (current) use of insulin | CPT/HCPCS: 73630; 99214 ==

== ENCOUNTER → 2022-02-25 09:06 | Outpatient (BNVA) | payer MEDICAID, SELFPAY | PROVIDERS: PCP Nurse Practitioner; Visit Provider Podiatrist Foot & Ankle Surgery | DX: E11.610 Type 2 diabetes mellitus with diabetic neuropathic arthropathy (principal); E11.42 Type 2 diabetes mellitus with diabetic polyneuropathy; Z79.4 Long term (current) use of insulin | CPT/HCPCS: 73630; 99214 ==

== ENCOUNTER → 2022-04-01 10:05 | Outpatient (BNVA) | payer MEDICAID, SELFPAY | PROVIDERS: PCP Nurse Practitioner; Visit Provider Podiatrist Foot & Ankle Surgery | DX: E11.610 Type 2 diabetes mellitus with diabetic neuropathic arthropathy (principal); E11.42 Type 2 diabetes mellitus with diabetic polyneuropathy; Z79.4 Long term (current) use of insulin | CPT/HCPCS: 73630; 99214 ==

== ENCOUNTER → 2022-04-04 14:05 | Outpatient (BNVA) | payer MEDICAID, SELFPAY | PROVIDERS: PCP Nurse Practitioner; Visit Provider Nurse Practitioner Family | DX: R05.9 Cough, unspecified (principal); J06.9 Acute upper respiratory infection, unspecified; J44.9 Chronic obstructive pulmonary disease, unspecified | CPT/HCPCS: 87400; 87426 ==

== ENCOUNTER → 2022-04-29 11:30 | Outpatient (BNVA) | payer MEDICAID, SELFPAY | PROVIDERS: PCP Nurse Practitioner; Visit Provider Nurse Practitioner Family | DX: E11.65 Type 2 diabetes mellitus with hyperglycemia (principal); Z79.4 Long term (current) use of insulin; I10 Essential (primary) hypertension; M79.2 Neuralgia and neuritis, unspecified; E11.42 Type 2 diabetes mellitus with diabetic polyneuropathy; I47.1 Supraventricular tachycardia; J06.9 Acute upper respiratory infection, unspecified; I48.0 Paroxysmal atrial fibrillation; F41.8 Other specified anxiety disorders; G47.9 Sleep disorder, unspecified; J44.9 Chronic obstructive pulmonary disease, unspecified; K21.9 Gastro-esophageal reflux disease without esophagitis; E78.5 Hyperlipidemia, unspecified | CPT/HCPCS: 80053; 80061; 83036; 84443; 85025 ==

== ENCOUNTER → 2022-05-22 10:55 | Outpatient (BNVA) | payer MEDICAID, SELFPAY | PROVIDERS: PCP Nurse Practitioner; Visit Provider Podiatrist Foot & Ankle Surgery | DX: E11.610 Type 2 diabetes mellitus with diabetic neuropathic arthropathy (principal); E11.42 Type 2 diabetes mellitus with diabetic polyneuropathy; M79.673 Pain in unspecified foot; Z79.4 Long term (current) use of insulin | CPT/HCPCS: 73630; 99214 ==

== ENCOUNTER 2022-05-23 10:41 | Emergency (ER) | payer MEDICAID, SELFPAY ==
[2022-05-23 10:56] VITALS: BP 145/80; PULSE 84; RESP 15; TEMP 36.6; O2SAT 98; BMI 38.0
--- NOTE | 2022-05-23 11:01 | ECG_ITS ---
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 Measurements Intervals [place] Rate: 83 P: 22 MO: 148 QRS: 5 QRSD: 103 T: 40 QT: 384 QTc: 453 Interpretive Statements SINUS RHYTHM Compared to ECG 12/06/2021 17:25:36 Intraventricular conduction delay no longer present Electronically Signed On 05-23-2022 18:04:51 CHANGE CONTROL MANAGER by Santo Hinojosa M.D. [id number]
[2022-05-23 11:07] VITALS: BP 145/80; O2SAT 97
--- NOTE | 2022-05-23 11:15 | W.ED.ARRPALP ---
HPI - Arrhythmia/Palpitations General: Chief Complaint: Arrhythmia/Palpitations Stated Complaint: converted SVT Time Seen by Provider: 05/23/22 10:58 Source: patient Mode of arrival: EMS Limitations: no limitations History of Present Illness: This patient was awoken this morning with a sensation of rapid heart rate similar to that which she is experienced in the past. She has a history of SVT states that it comes and goes when it wants. She states she has been faithful to all her medications and in fact after she awoke with her usual sensation of chest fullness and being aware of a rapid heart rate she took her extended release diltiazem. She denies any recent illness, caffeine use, nicotine use, alcohol use etc. There has been no prior known stimulants or precipitating factors in the past. She notified EMS and upon arrival EMS assessed the patient and wound of giving her 6 mg of Adenocard while in the rig. She converted shortly thereafter and is remained in what she thinks is sinus rhythm or normal rhythm since that time. She currently denies any other symptoms. MD complaint: rapid heart beat Context: occurred during rest Arrhythmia history: SVT Associated symptoms: Reports no associated symptoms; Deny anxiety, nausea, pre-syncope, syncope or vomiting Review of Systems Const: Denies: fever(s) or chills ENMT: Denies: throat pain, odynophagia, nasal discharge or nasal congestion Card: Reports: palpitations; Denies: chest pain, irregular heart rhythm, edema, lightheadedness, syncope or pre-syncope Resp: Denies: dyspnea, productive cough or non-productive cough GI: Denies: abdominal pain, nausea, vomiting or diarrhea : Denies: difficulty voiding or dysuria Musc: Denies: neck pain, back pain, extremity pain or extremity swelling Skin/Breast: Denies: rash, pruritus or erythema Neuro: Denies: numbness in extremities or weakness in extremities Psych: Denies: anxiety or depression Endo: Denies: polydipsia or tired all the time PFS ED PFSH: Medical History Asthma Atrial fibrillation Benign hypertension Breast cancer, left breast Breast cancer, right COPD (chronic obstructive pulmonary disease) COPD exacerbation Diabetes mellitus with hyperglycemia, with long-term current use of insulin Dyslipidemia Gastroesophageal reflux disease Open wound of foot Right great toe Osteoarthritis of spine SVT (supraventricular tachycardia) Ulcer of foot, chronic Surgical History H/O bilateral mastectomy H/O esophagogastroduodenoscopy (10/19/21) History of appendectomy History of hysterectomy Status post left breast lumpectomy Status post right breast lumpectomy Family History Father CAD (coronary artery disease) CHF (congestive heart failure) Hyperlipidemia Hypertension Lung disease Stroke Other Diabetes Denies family history of Clotting disorder Dementia Psychiatric illness Chronic kidney disease (CKD) Suicide Anesthesia complication Bleeding disorder Family history of premature coronary artery disease Cancer Social History Smoking and tobacco status: current every day smoker cigarettes Packs smoked per day: 2 Second hand smoke exposure: Yes Smoking risk assessment/counseling performed?: Yes Alcohol intake: never Desire information about alcohol rehabilitation?: No Counseling given: No Desire information about substance/drug rehabilitation?: No Counseling given: No Adopted: No Caregiver/support person: No Lives independently: Yes Household members: family Housing: House Marital status: Single Number of children: 1 service: No Current occupational status: employed Current gender identity: Female Physical Exam Narrative: EXAM NARRATIVE: She is alert comfortable no acute distress. Const: COMMON NORMALS: no acute distress and alert GENERAL APPEARANCE: cooperative and comfortable NUTRITIONAL APPEARANCE: overweight HENMT: COMMON NORMALS: normocephalic, Normal nasal mucous membranes and turbinates present, moist oral mucous membranes and oropharynx normal HEAD & SCALP: normocephalic NOSE: Normal nasal mucous membranes and turbinates present Eye: COMMON NORMALS: Equal, round and reactive pupils present, EOMs intact bilaterally and conjunctivae normal CONJUNCTIVA: Yes conjunctivae normal PUPIL: Yes Equal, round and reactive pupils present Neck/C-Spine: COMMON NORMALS: full ROM, no lymphadenopathy and Thyroid normal THYROID: Thyroid normal Chest: COMMONS NORMALS: normal inspection of the chest and normal palpation of entire chest wall Resp: COMMON NORMALS: normal respiratory effort, No use of accessory muscles and clear to auscultation bilaterally AUSCULTATION: clear to auscultation bilaterally Cardio: COMMON NORMALS: regular rate, regular rhythm, No murmurs present (Cardio) and Peripheral pulses 2+ throughout RATE: regular rate RHYTHM: regular rhythm PERIPHERAL PULSES: Peripheral pulses 2+ throughout GI: COMMON NORMALS: Normal to inspection, nondistended, normoactive bowel sounds present, Soft to palpation and non-tender PALPATION: Yes Soft to palpation : COMMON NORMALS: Yes no CVA tenderness BLADDER/KIDNEY EXAM: Yes no CVA tenderness Back/Pelvis: COMMON NORMALS: no CVA tenderness, thoracic and lumbar spine normal to inspection, no thoracic nor lumbar tenderness and thoraco-lumbar ROM normal Extremity: COMMON NORMALS: capillary refill normal, no calf tenderness and no pedal edema NARRATIVE EXTREMITY EXAM: Wears a cam walker on left leg because of Charcot foot Neuro: COMMON NORMALS: moves all extremities and no focal motor deficits SENSORIUM/ORIENTATION: Yes alert CRANIAL NERVES: Yes CN normal except as noted Course Reevaluation(s): Reevaluation #1: Patient is remained in normal sinus rhythm since arrival to our emergency department. Resting EKG was reassuring. Basic metabolic profile reveals normal potassium and normal magnesium. Elevated glucose consistent with her chronic diabetes. She remains clinically stable and desires to be discharged I think that is appropriate. She has been observed now over 2 hours post conversion from SVT without any concerns. Time: 12:13 Vital Signs: Vital signs: Vital Signs Temperature 97.8 F 05/23/22 10:56 Pulse Rate 78 05/23/22 12:00 Respiratory Rate 22 H 05/23/22 12:00 Blood Pressure 151/77 05/23/22 12:00 Pulse Oximetry 98 05/23/22 12:00 Oxygen Delivery Me thod 05/23/22 11:07 Oxygen Flow Rate 3 05/23/22 10:56 MDM - Arrhythmia/Palpitations Medical Decision Making Patient was transported the emergency department by EMS after she experienced a episode of supraventricular tachycardia identical to that which she is experienced in the past. She was actually cardioverted with adenosine prior to arrival in the emergency department. There was no evidence historically or clinically at this time of an ongoing emergency medical condition. She remained in sinus rhythm with a reassuring resting EKG as well as basic laboratories save for hyperglycemia which is not unusual for her given her diabetes. Continued observation has determined that she is stable at this time without any evidence of a condition requiring further observation and/or treatment and is suitable to be discharged home. Medical Records I reviewed the patient's medical records. Lab Data I reviewed the patient's lab results. 05/23/22 11:15 Laboratory Results Sodium 135 mmol/L (136-145) L 05/23/22 11:15 Potassium 4.6 mmol/L (3.5-5.1) 05/23/22 11:15 Chloride 96 mmol/L (98-107) L 05/23/22 11:15 Carbon Dioxide 28 mmol/L (22-29) 05/23/22 11:15 Anion Gap 15.6 (5-19) 05/23/22 11:15 BUN 12 mg/dL (6-20) 05/23/22 11:15 Creatinine 0.5 mg/dL (0.5-0.9) 05/23/22 11:15 GFR Calculation 126.7 mL/min (90-130) 05/23/22 11:15 Glucose 368 mg/dL (65-115) H 05/23/22 11:15 Calculated Osmolality 295 mOsm/kg (285-295) 05/23/22 11:15 Calcium 8.7 mg/dL (8.5-10.5) 05/23/22 11:15 Magnesium 2.0 mg/dL (1.7-2.3) 05/23/22 11:15 EKG Data EKG 1: I personally reviewed and interpreted this EKG as follows: Interpretation: Contemporaneous review of resting EKG reveals a ventricular rate of 83 bpm. Normal FL interval, QRS interval, corrected QT intervals. Normal axis. No acute ST-T wave changes or other proarrhythmic findings at this time. Discharge Plan Discharge Patient Disposition: Home Clinical Impression: SVT (supraventricular tachycardia) Condition: Stable Prescriptions: No Action (DME) Diabetic Shoes with 3 Pairs of Inserts See Rx Instructions .Route .MEDSUPPLY Qty: 1 0RF Rx Instructions: As directed by HOME (DME) Diabetic shoes with 3 sets of inserts See Rx Instructions .Route .MEDSUPPLY Qty: 1 0RF Rx Instructions: As directed by [facility] glipizide 10 mg tablet 10 mg PO BID Qty: 60 2RF Pacerone 200 mg tablet 100 mg PO BID Qty: 30 2RF Lasix 20 mg tablet 20 mg PO QAM PRN (Reason: Edema) Qty: 30 2RF gabapentin 300 mg capsule 300 mg PO BID Qty: 60 2RF duloxetine 60 mg capsule,delayed release(DR/EC) 60 mg PO BID Qty: 60 2RF DILT-XR 180 mg capsule,ext.rel 24h degradable 180 mg PO QAM Qty: 30 2RF tizanidine 2 mg tablet 2 mg PO BID PRN (Reason: Muscle Spasm) Qty: 30 0RF Xarelto 20 mg tablet 20 mg PO BEDTIME 30 Days Qty: 30 2RF Levemir FlexTouch U-100 Insuln 100 unit/mL (3 mL) insulin pen 60 unit SUBCUT BEDTIME Qty: 18 2RF Victoza 3-Macario 0.6 mg/0.1 mL (18 mg/3 mL) pen injector 0.6 mg SUBCUT BEDTIME Qty: 9 2RF Rx Instructions: no medication sent change dose due to pain left upper Quad abdomen benzonatate 200 mg capsule 200 mg PO TID PRN (Reason: cough) Qty: 90 0RF doxepin 10 mg capsule 10 mg PO BEDTIME Qty: 30 2RF loperamide [Anti-Diarrheal (loperamide)] 2 mg Tablet 2 - 4 mg PO PRN PRN (Reason: Diarrhea) acetaminophen [Tylenol Extra Strength] 500 mg Tablet 1,000 mg PO TID PRN (Reason: Pain) trolamine salicylate [Aspercreme] 10 % Cream 1 applic TOPICAL TID PRN (Reason: Pain) midodrine 5 mg tablet 5 mg PO TID Qty: 90 0RF Rx Instructions: do not give last dose of day after 6PM or within 4 hrs of bedtime valerian root 500 mg Capsule 500 - 1,000 mg PO BEDTIME nitroglycerin [Nitrostat] 0.4 mg Tablet, Sublingual 0.4 mg SUBLINGUAL Q5M PRN (Reason: Chest Pain) Rx Instructions: do not exceed 3 doses per episode pantoprazole [Protonix] 40 mg tablet,delayed release (DR/EC) 40 mg PO DAILY Qty: 30 2RF Hold Instructions: Change to Nexium for 14 days. Then restart multivitamin Tablet 1 tab PO DAILY Discharge Orders: Discharge ED (Routine); Ordered 05/23/22 Ordered By: Stiven Celaya Referrals: Ángel Vance, KNURLING MACHINE TENDER-C [Primary Care Provider] - Discharge Diet: Usual diet Discharge Activity: Resume usual activity Patient Instructions: Opioid Safety, Pain Management Activity Restrictions/Additional Instructions: Continue all your usual medications as prescribed. Monitor your blood sugars and continue your basal insulin in addition to your oral hypoglycemics. You develop any new or worsening symptoms return to this or the nearest emergency department otherwise follow-up with your regular clinician for ongoing medical care. Coding Level of Care Code ED Coloring Checker for Briana Nj
[2022-05-23 11:30] VITALS: BP 151/88; PULSE 79; RESP 13; O2SAT 99
[2022-05-23 11:51] LABS: Blood Urea Nitrogen 12 mg/dL (6-20); Calcium 8.7 mg/dL (8.5-10.5); Carbon Dioxide 28 mmol/L (22-29); Chloride 96 mmol/L (98-107); Glomerular Filtration Rate 126.7 mL/min (90-130); Glucose 368 mg/dL (65-115); Osmolality Calculated 295 mOsm/kg (285-295); Sodium 135 mmol/L (136-145)
[2022-05-23 11:53] LABS: Anion Gap 15.6 (5-19); Potassium 4.6 mmol/L (3.5-5.1)
[2022-05-23 12:00] VITALS: BP 151/77; PULSE 78; RESP 22; O2SAT 98
[2022-05-23 12:30] VITALS: BP 143/76; PULSE 69; O2SAT 97
== END 2022-05-23 12:48 | disposition home or self-care (01) ==
PROVIDERS: Emergency Provider Emergency Medicine; PCP Nurse Practitioner
DX: I47.1 Supraventricular tachycardia (principal); Z79.4 Long term (current) use of insulin; Z79.84 Long term (current) use of oral hypoglycemic drugs; F17.210 Nicotine dependence, cigarettes, uncomplicated; I10 Essential (primary) hypertension; Z85.3 Personal history of malignant neoplasm of breast; J44.9 Chronic obstructive pulmonary disease, unspecified; E11.9 Type 2 diabetes mellitus without complications; E78.5 Hyperlipidemia, unspecified
CPT/HCPCS: 80048; 83735; 93005; 99284

== ENCOUNTER → 2022-06-06 16:24 | Outpatient (BNVA) | payer MEDICAID, SELFPAY | PROVIDERS: PCP Nurse Practitioner; Visit Provider Nurse Practitioner Family | DX: L02.412 Cutaneous abscess of left axilla (principal) | CPT/HCPCS: 87070 ==

== ENCOUNTER 2022-06-28 12:22 | Emergency (ER) | payer MEDICAID, SELFPAY ==
[2022-06-28 12:23] VITALS: BP 164/88; PULSE 76; RESP 18; TEMP 37; O2SAT 97
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
[2022-06-28] MEDS: iohexol 350 mg/mL 500 mL Btl (per mL) IV (12:34)
[2022-06-28 13:40] LABS: Basophils % 0.3 %; Eosinophils # 0.1 10^3/uL (0.0-0.8); Eosinophils % 0.8 %; Hematocrit 40.9 % (37.0-47.0); Hemoglobin 13.6 g/dL (11.5-15.3); Lymphocytes % 15.4 %; Mean Corpuscular HGB Conc 33.3 g/dL (30.0-36.0); Mean Corpuscular Hemoglobin 29.2 pg (28.0-34.0); Mean Platelet Volume 11.2 fL (7.4-10.4); Monocytes # 1.1 10^3/uL (0.2-0.9); Monocytes % 8.3 %; Neutrophils # 9.87 10^3/uL (1.8-7.7); Neutrophils % 74.7 %; Nucleated Red Blood Cells % 0 %; Platelet Count 258 10^3/cmm (130-400); Red Blood Count 4.65 10^6/uL (4.1-5.3); Red Cell Distribution Width 13.6 % (12.1-15.1); White Blood Count 13.2 10^3/uL (4.0-10.0)
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
[2022-06-28 13:44] VITALS: BP 172/87; PULSE 78; RESP 18; O2SAT 94
[2022-06-28 13:54] LABS: Alanine Aminotransferase 8 U/L (0-33); Albumin Level 3.2 g/dL (3.5-5.2); Alkaline Phosphatase 131 U/L (35-105); Anion Gap 15.7 (5-19); Aspartate Amino Transferase 8 U/L (0-32); Blood Urea Nitrogen 11 mg/dL (6-20); Calcium 8.3 mg/dL (8.5-10.5); Carbon Dioxide 25 mmol/L (22-29); Chloride 96 mmol/L (98-107); Globulin 3.4 g/dL (1.3-4.6); Glomerular Filtration Rate 102.7 mL/min (90-130); Glucose 366 mg/dL (65-115); Osmolality Calculated 290 mOsm/kg (285-295); Potassium 3.7 mmol/L (3.5-5.1); Sodium 133 mmol/L (136-145); Total Bilirubin 0.6 mg/dL (0.15-1.2); Total Protein 6.6 g/dL (6.6-8.7)
[2022-06-28 14:00] VITALS: BP 136/61; PULSE 78; RESP 16; O2SAT 98
[2022-06-28 14:34] LABS: Protein Urine 1+ (Negative); Urine Appearance Hazy (CLEAR); Urine Color Yellow (Yellow); pH Urine 5 (5-7)
[2022-06-28 14:35] LABS: Add Urine Microscopic? YES; Bilirubin Urine Neg (Negative); Blood Urine 3+ (Negative); Glucose Urine UA 4+ (Normal); Ketones Urine Negative (Negative); Leukocyte Esterase Urine 2+ (Negative); Nitrate Urine Negative (Negative); RBC Urine >100 /hpf (0-2); Urobilinogen Urine Neg (Negative)
[2022-06-28 14:36] LABS: Add Urine Culture? Yes; Bacteria Urine 3+ /hpf; Mucus Urine TRACE /hpf; WBC Urine >100 /hpf (0-5)
--- NOTE | 2022-06-28 14:59 | PC.NURSE ---
Report to [facility], here to transfer pt.
== END 2022-06-28 15:00 ==
PROVIDERS: Emergency Provider Family Medicine; PCP Nurse Practitioner
DX: S37.051A Moderate laceration of right kidney, initial encounter (principal); Z79.84 Long term (current) use of oral hypoglycemic drugs; Z79.4 Long term (current) use of insulin; Z79.01 Long term (current) use of anticoagulants; F17.210 Nicotine dependence, cigarettes, uncomplicated; I10 Essential (primary) hypertension; Z85.3 Personal history of malignant neoplasm of breast; J44.9 Chronic obstructive pulmonary disease, unspecified; E11.9 Type 2 diabetes mellitus without complications; E78.5 Hyperlipidemia, unspecified; V47.5XXA Car driver injured in collision with fixed or stationary object in traffic accident, initial encounter
CPT/HCPCS: 70450; 71260; 72125; 74177; 80053; 81001; 85025; 87077; 87086; 87186; 99285; Q9967

== ENCOUNTER → 2022-07-11 08:46 | Outpatient (BNVA) | payer MEDICAID, SELFPAY | PROVIDERS: PCP Nurse Practitioner; Visit Provider Nurse Practitioner Family | DX: R30.0 Dysuria (principal) | CPT/HCPCS: 81000; 87077; 87086; 87184 ==

== ENCOUNTER → 2022-07-18 14:07 | Outpatient (BNVA) | payer MEDICAID, SELFPAY | PROVIDERS: PCP Nurse Practitioner; Visit Provider Nurse Practitioner Family | DX: E11.65 Type 2 diabetes mellitus with hyperglycemia (principal); Z79.4 Long term (current) use of insulin; N39.0 Urinary tract infection, site not specified | CPT/HCPCS: 81000 ==

== ENCOUNTER → 2022-08-01 15:18 | Outpatient (BNVA) | payer MEDICAID, SELFPAY | PROVIDERS: PCP Nurse Practitioner; Referring Provider Nurse Practitioner Family; Visit Provider Orthopaedic Surgery | DX: M54.2 Cervicalgia (principal); V49.9XXA Car occupant (driver) (passenger) injured in unspecified traffic accident, initial encounter | CPT/HCPCS: 72050; 99204 ==

== ENCOUNTER 2022-08-02 13:50 | Outpatient (CLI) | payer MEDICAID, SELFPAY ==
[2022-08-02] MEDS: iohexol 350 mg/mL 500 mL Btl (per mL) IV (13:58)
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
== END 2022-08-02 13:51 | disposition home or self-care (01) ==
LOC: RAD 13:51
PROVIDERS: PCP Nurse Practitioner; Visit Provider Nurse Practitioner Family
DX: S37.031A Laceration of right kidney, unspecified degree, initial encounter (principal); X58.XXXA Exposure to other specified factors, initial encounter
CPT/HCPCS: 74177; Q9967

== ENCOUNTER → 2022-08-05 13:23 | Outpatient (BNVA) | payer MEDICAID, SELFPAY | PROVIDERS: PCP Nurse Practitioner; Visit Provider Nurse Practitioner Family | DX: M54.9 Dorsalgia, unspecified (principal); N12 Tubulo-interstitial nephritis, not specified as acute or chronic | CPT/HCPCS: 81000 ==

== ENCOUNTER → 2022-08-08 09:15 | Outpatient (BNVA) | payer MEDICAID, SELFPAY | PROVIDERS: PCP Nurse Practitioner; Visit Provider Nurse Practitioner Family | DX: N12 Tubulo-interstitial nephritis, not specified as acute or chronic (principal) | CPT/HCPCS: 80053; 85025 ==

== ENCOUNTER 2022-08-13 10:38 | Emergency (ER) | payer MEDICAID, SELFPAY ==
[2022-08-13 10:43] VITALS: BP 136/72; PULSE 76; RESP 16; TEMP 36.8; O2SAT 96
--- NOTE | 2022-08-13 10:49 | ECG_ITS ---
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 Measurements Intervals [place] Rate: 74 P: 29 [place]: 194 QRS: 58 QRSD: 105 T: 8 QT: 397 QTc: 443 Interpretive Statements SINUS RHYTHM POSSIBLE ANTERIOR MYOCARDIAL INFARCTION , OF INDETERMINATE AGE [30 ms Q WAVE IN V3/V4, OR R < 0.2 mV IN V4] Compared to ECG 05/23/2022 11:08:29 Myocardial infarct finding now present Electronically Signed On 08-14-2022 1:15:33 CDT by Theodora Valladares M.D. [id number]
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
--- NOTE | 2022-08-13 11:13 | CT_ITS ---
WS: [id number] CT ABDOMEN PELVIS TECHNIQUE: Noncontrast CT of the abdomen and pelvis with coronal and sagittal reformatted images. CLINICAL INFORMATION: flank pain COMPARISON: CT abdomen pelvis August 02, 2022 DLP: [id number] scans at [facility] use at least one of these dose optimization techniques: automated e xposure control; mA and/or kV adjustment per patient size (includes targeted exams where dose is matc hed to clinical indication); or iterative reconstruction. FINDINGS: Hepatomegaly. Splenic granulomas. Normal GE junction. Cholelithiasis. Slight subsegmental atelectasis in the lung bases. Adrenal glands are normal. Malrotation RIGHT kidney. Inflammatory stranding about both kidneys suspicious for pyelonephritis. This is similar to the prior examination August 02, 2022. C ontrast not administered today. Previously described RIGHT perinephric fluid collection on June 28, 2022 has improved and is unchang ed since August 02, 2022. Pelvic phleboliths. A few tiny nonobstructing RIGHT calyceal tip calculi. Normal caliber abdominal aorta. Aortic calcification. Noncontrast pancreas appears normal. Splenic ar pradeep calcification. Sigmoid colon constipation. Moderate spondylitic changes lumbar spine. CT/CT kidney stone [id number] IMPRESSION: 1. Inflammatory stranding about both kidneys suspicious for pyelonephritis sim ilar to the prior study. Contrast not administered today. Recommend correlation for infection. 2. No hydronephrosis in either kidney. No obstructing renal or ureteral calcul i. 3. Cholelithiasis. 4. Hepatomegaly. 5. No other significant interval changes. 6. Stable nondependent air within the bladder. Notified Cj Gomez DO at 08/13/2022 12:24 PM.
[2022-08-13 11:17] VITALS: BP 151/68; PULSE 76; RESP 18; O2SAT 98
[2022-08-13 11:31] LABS: Bilirubin Urine Neg (Negative); Blood Urine 2+ (Negative); Glucose Urine UA 4+ (Normal); Ketones Urine Negative (Negative); Nitrate Urine Negative (Negative); Protein Urine Trace (Negative); Urine Appearance Cloudy (CLEAR); Urine Color Yellow (Yellow); Urobilinogen Urine Norm (Negative); pH Urine 5 (5-7)
[2022-08-13 11:31] LABS: Basophils # 0.1 10^3/uL (0.0-0.1); Basophils % 0.6 %; Eosinophils # 0.2 10^3/uL (0.0-0.8); Hematocrit 43.2 % (37.0-47.0); Hemoglobin 13.9 g/dL (11.5-15.3); Lymphocytes # 2.9 10^3/uL (0.8-4.8); Lymphocytes % 24.9 %; Mean Corpuscular HGB Conc 32.2 g/dL (30.0-36.0); Mean Corpuscular Hemoglobin 27.8 pg (28.0-34.0); Mean Corpuscular Volume 86.4 fl (81-99); Mean Platelet Volume 10.9 fL (7.4-10.4); Monocytes # 0.8 10^3/uL (0.2-0.9); Neutrophils # 7.48 10^3/uL (1.8-7.7); Neutrophils % 65.2 %; Nucleated Red Blood Cells % 0 %; Platelet Count 381 10^3/cmm (130-400); Red Cell Distribution Width 13.9 % (12.1-15.1); White Blood Count 11.5 10^3/uL (4.0-10.0)
[2022-08-13 11:32] LABS: Add Urine Microscopic? YES; Bacteria Urine 2+ /hpf; Leukocyte Esterase Urine 1+ (Negative); Squamous Epithelial Cell Urine 0-4 /hpf (0-5); WBC Urine 25-40 /hpf (0-5)
[2022-08-13 11:33] LABS: Add Urine Culture? Yes
[2022-08-13 11:39] LABS: Alanine Aminotransferase 8 U/L (0-33); Albumin Level 3.5 g/dL (3.5-5.2); Alkaline Phosphatase 137 U/L (35-105); Anion Gap 15.7 (5-19); Aspartate Amino Transferase 12 U/L (0-32); Blood Urea Nitrogen 11 mg/dL (6-20); Calcium 9.5 mg/dL (8.5-10.5); Carbon Dioxide 28 mmol/L (22-29); Chloride 94 mmol/L (98-107); Globulin 3.9 g/dL (1.3-4.6); Glomerular Filtration Rate 102.7 mL/min (90-130); Glucose 382 mg/dL (65-115); Lipase 23 U/L (13-60); Osmolality Calculated 291 mOsm/kg (285-295); Potassium 4.7 mmol/L (3.5-5.1); Sodium 133 mmol/L (136-145); Total Bilirubin 0.3 mg/dL (0.15-1.2); Total Protein 7.4 g/dL (6.6-8.7)
== END 2022-08-13 13:01 | disposition home or self-care (01) ==
PROVIDERS: Emergency Provider Family Medicine; PCP Nurse Practitioner
DX: N30.90 Cystitis, unspecified without hematuria (principal); Z79.4 Long term (current) use of insulin; K80.20 Calculus of gallbladder without cholecystitis without obstruction; F17.210 Nicotine dependence, cigarettes, uncomplicated; Z85.3 Personal history of malignant neoplasm of breast; J44.9 Chronic obstructive pulmonary disease, unspecified; E11.9 Type 2 diabetes mellitus without complications; E78.5 Hyperlipidemia, unspecified
CPT/HCPCS: 36415; 74176; 80053; 81001; 83690; 85025; 87040; 87077; 87086; 87186; 93005; 96374; 99285

== ENCOUNTER → 2022-08-15 13:59 | Outpatient (BNVA) | payer MEDICAID, SELFPAY | PROVIDERS: PCP Nurse Practitioner; Visit Provider Nurse Practitioner Family | DX: N12 Tubulo-interstitial nephritis, not specified as acute or chronic (principal) | CPT/HCPCS: 81000 ==

== ENCOUNTER 2022-08-22 07:35 | Outpatient (CLI) | payer MEDICAID, SELFPAY ==
[2022-08-22] MEDS: iohexol 350 mg/mL 500 mL Btl (per mL) IV (07:46)
[2022-08-22] MEDS: iohexol 350 mg/mL 500 mL Btl (per mL) PO (07:47)
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
== END 2022-08-22 07:36 | disposition home or self-care (01) ==
LOC: RAD 07:36
PROVIDERS: PCP Nurse Practitioner; Visit Provider Orthopaedic Surgery
DX: N12 Tubulo-interstitial nephritis, not specified as acute or chronic (principal); M48.02 Spinal stenosis, cervical region; M25.78 Osteophyte, vertebrae; M50.21 Other cervical disc displacement, high cervical region; N28.81 Hypertrophy of kidney; K80.20 Calculus of gallbladder without cholecystitis without obstruction; R16.0 Hepatomegaly, not elsewhere classified; Z87.828 Personal history of other (healed) physical injury and trauma
CPT/HCPCS: 72141; 74177; 81000; Q9967

== ENCOUNTER 2022-08-23 13:46 | Emergency (ER) | payer MEDICAID, SELFPAY ==
[2022-08-23 14:07] VITALS: BP 119/74; PULSE 80; RESP 16; TEMP 36.7; O2SAT 94
[2022-08-23 14:31] LABS: Basophils # 0.1 10^3/uL (0.0-0.1); Basophils % 0.9 %; Eosinophils # 0.4 10^3/uL (0.0-0.8); Eosinophils % 3.9 %; Hemoglobin 14.5 g/dL (11.5-15.3); Lymphocytes # 3.6 10^3/uL (0.8-4.8); Lymphocytes % 37.1 %; Mean Corpuscular HGB Conc 32.2 g/dL (30.0-36.0); Mean Corpuscular Hemoglobin 27.3 pg (28.0-34.0); Mean Corpuscular Volume 84.7 fl (81-99); Mean Platelet Volume 10.8 fL (7.4-10.4); Monocytes # 0.6 10^3/uL (0.2-0.9); Monocytes % 6.5 %; Neutrophils # 4.97 10^3/uL (1.8-7.7); Nucleated Red Blood Cells % 0 %; Platelet Count 404 10^3/cmm (130-400); Red Blood Count 5.31 10^6/uL (4.1-5.3); Red Cell Distribution Width 13.8 % (12.1-15.1); White Blood Count 9.8 10^3/uL (4.0-10.0)
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
[2022-08-23 14:51] LABS: Alanine Aminotransferase 8 U/L (0-33); Albumin Level 3.8 g/dL (3.5-5.2); Alkaline Phosphatase 113 U/L (35-105); Anion Gap 17.5 (5-19); Aspartate Amino Transferase 9 U/L (0-32); Blood Urea Nitrogen 13 mg/dL (6-20); Calcium 8.6 mg/dL (8.5-10.5); Carbon Dioxide 25 mmol/L (22-29); Chloride 97 mmol/L (98-107); Globulin 3.6 g/dL (1.3-4.6); Glomerular Filtration Rate 85.9 mL/min (90-130); Glucose 413 mg/dL (65-115); Lipase 20 U/L (13-60); Osmolality Calculated 298 mOsm/kg (285-295); Potassium 4.5 mmol/L (3.5-5.1); Sodium 135 mmol/L (136-145); Total Bilirubin 0.2 mg/dL (0.15-1.2); Total Protein 7.4 g/dL (6.6-8.7)
[2022-08-23 15:39] VITALS: BP 167/83; PULSE 68; O2SAT 96
[2022-08-23 16:00] VITALS: BP 151/91; PULSE 64; O2SAT 97
[2022-08-23 16:00] LABS: Blood Urine 2+ (Negative); Glucose Urine UA 4+ (Normal); Ketones Urine Negative (Negative); Protein Urine 1+ (Negative); Urine Appearance Cloudy (CLEAR); Urine Color Yellow (Yellow); pH Urine 5 (5-7)
[2022-08-23 16:01] LABS: Add Urine Microscopic? YES; Bilirubin Urine Neg (Negative); Leukocyte Esterase Urine 2+ (Negative); Nitrate Urine Negative (Negative); Urobilinogen Urine Neg (Negative)
[2022-08-23 16:03] LABS: Add Urine Culture? No; Bacteria Urine 2+ /hpf; Mucus Urine 1+ /hpf; RBC Urine 50-80 /hpf (0-2); Squamous Epithelial Cell Urine 55-80 /hpf (0-5); WBC Urine >100 /hpf (0-5)
[2022-08-23] MEDS: insulin regular-human 100 units/1 mL 8 UNIT IVP (16:28)
[2022-08-23] MEDS: cefTRIAXone 1,000 MG in sodium chloride 0.9% (plus) 50 ML 100 MG IV (16:33)
--- NOTE | 2022-08-23 16:37 | PC.NURSE ---
Per orders from [facility], no blood cultures were collected prior to starting the antibiotics.
[2022-08-23 16:44] VITALS: BP 167/66; PULSE 69; O2SAT 98
[2022-08-23 17:02] VITALS: BP 141/69; PULSE 65; O2SAT 97
== END 2022-08-23 17:05 | disposition home or self-care (01) ==
PROVIDERS: Emergency Medicine; Emergency Provider Physician Assistant; PCP Nurse Practitioner
DX: N30.90 Cystitis, unspecified without hematuria (principal); E11.65 Type 2 diabetes mellitus with hyperglycemia; Z79.4 Long term (current) use of insulin; F17.210 Nicotine dependence, cigarettes, uncomplicated; Z85.3 Personal history of malignant neoplasm of breast; J44.9 Chronic obstructive pulmonary disease, unspecified; E78.5 Hyperlipidemia, unspecified
CPT/HCPCS: 80053; 81001; 83690; 85025; 96365; 96375; 99284; J0696; J1815

== ENCOUNTER 2022-10-07 11:52 | Observation (INO) | payer MEDICAID, SELFPAY ==
[2022-10-07] VITALS (11 sets, daily range): BP systolic 87–124; BP diastolic 54–86; PULSE 74–130; RESP 16–18; TEMP 36.6–37; O2SAT 90–96; BMI 38.0
--- NOTE | 2022-10-07 11:54 | ECG_ITS ---
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 Measurements Intervals [place] Rate: 127 P: 0 KS: 0 QRS: -21 QRSD: 106 T: 49 QT: 312 QTc: 454 Interpretive Statements ATRIAL FLUTTER/TACHYCARDIA WITH RAPID VENTRICULAR RESPONSE MODERATE INTRAVENTRICULAR CONDUCTION DELAY [105+ ms QRS DURATION, 80+ ms Q/S IN V1/V2, NO Q AND 60+ ms R IN I/aVL/V5/V6] MODERATE ST DEPRESSION [0.05+ mV ST DEPRESSION] Compared to ECG 08/13/2022 10:49:20 Intraventricular conduction delay now present ST (T wave) deviation now present Sinus rhythm no longer present Myocardial infarct finding no longer present Electronically Signed On 10-07-2022 17:37:14 CDT by Nan Coe M.D. [email or web address]
--- NOTE | 2022-10-07 11:54 | XR_ITS ---
WS: [id number] Exam: XR chest 1V portable [id number] Date/Time of Exam: 10/07/2022 12:02 PM Reason For Exam: dyspnea/cough Comparison 12/06/2021. The lungs are clear and fully expanded. Normal cardiomediastinal silhouette. No pleural effusions. Re gional bony elements are intact. Surgical clips along the right axilla. XR/XR chest 1V portable [id number] IMPRESSION: 1. No acute cardiopulmonary finding.
[2022-10-07] MEDS: meclizine 25 mg tablet PO (12:08)
[2022-10-07] MEDS: sodium chloride 0.9% 1,000 ML 999 ML IV (12:09)
[2022-10-07 12:15] LABS: Basophils # 0.1 10^3/uL (0.0-0.1); Basophils % 0.6 %; Eosinophils # 0.3 10^3/uL (0.0-0.8); Eosinophils % 2.2 %; Hematocrit 45.4 % (37.0-47.0); Hemoglobin 14.5 g/dL (11.5-15.3); Lymphocytes # 3.6 10^3/uL (0.8-4.8); Lymphocytes % 28.4 %; Mean Corpuscular HGB Conc 31.9 g/dL (30.0-36.0); Mean Corpuscular Hemoglobin 27.6 pg (28.0-34.0); Mean Corpuscular Volume 86.3 fl (81-99); Mean Platelet Volume 10.6 fL (7.4-10.4); Monocytes # 0.7 10^3/uL (0.2-0.9); Monocytes % 5.2 %; Neutrophils % 63.2 %; Nucleated Red Blood Cells % 0 %; Platelet Count 333 10^3/cmm (130-400); Red Blood Count 5.26 10^6/uL (4.1-5.3); White Blood Count 12.7 10^3/uL (4.0-10.0)
[2022-10-07 12:34] LABS: Alanine Aminotransferase 7 U/L (0-33); Alkaline Phosphatase 106 U/L (35-105); Anion Gap 15.8 (5-19); Aspartate Amino Transferase 6 U/L (0-32); Blood Urea Nitrogen 14 mg/dL (6-20); Calcium 8.5 mg/dL (8.5-10.5); Carbon Dioxide 25 mmol/L (22-29); Chloride 97 mmol/L (98-107); Globulin 3.3 g/dL (1.3-4.6); Glomerular Filtration Rate 102.7 mL/min (90-130); Glucose 304 mg/dL (65-115); Osmolality Calculated 288 mOsm/kg (285-295); Potassium 4.8 mmol/L (3.5-5.1); Sodium 133 mmol/L (136-145); Total Bilirubin 0.2 mg/dL (0.15-1.2); Total Protein 6.3 g/dL (6.6-8.7)
[2022-10-07] MEDS: dilTIAZem 5 mg/mL SDV 5 mL IVP (12:56)
--- NOTE | 2022-10-07 13:28 | W.ED.WEAKNES ---
HPI - Weakness General: Chief complaint: Weakness Stated complaint: weakness, dizzy Time Seen by Provider: 10/07/22 11:54 Source: patient Mode of arrival: EMS History of Present Illness: 57-year-old female presents emergency room with complaint of generalized weakness and mild chest discomfort. She has had this intermittently for the last 3 days. She has a known history of atrial fibrillation and is on anticoagulation she is also diabetic she is currently on diltiazem daily. She has not missed any of her doses no recent medication changes. She has noticed with exertion she gets dizzy and lightheaded with rest that gets somewhat better. Is been persistent the last several days. MD Complaint: generalized weakness Onset (ago): day(s) (3) Duration: intermittent Location: generalized Severity: mild Relieving factors: rest Exacerbating factors: exertion Associated symptoms: Reports chest pain; Denies chills, confusion, melena, decreased appetite, diaphoresis, dysuria, easy bruising, fever(s), headache(s), myalgias, nausea, rash, short of breath, syncope or vomiting Review of Systems Const: Denies: fever(s), chills or diaphoresis Card: Reports: chest pain, palpitations and irregular heart rhythm; Denies: edema or syncope GI: Denies: abdominal pain, nausea, vomiting or melena : Denies: dysuria, urinary frequency or urinary urgency Musc: Denies: neck pain or back pain Neuro: Denies: headache(s) or confusion Tio/Lymph: Denies: easy bruising PFSH ED PFSH: Medical History Asthma Atrial fibrillation Benign hypertension Breast cancer, left breast Breast cancer, right COPD (chronic obstructive pulmonary disease) COPD exacerbation Diabetes mellitus with hyperglycemia, with long-term current use of insulin Dyslipidemia Gastroesophageal reflux disease History of amputation of great toe Open wound of foot Right great toe Osteoarthritis of spine SVT (supraventricular tachycardia) Ulcer of foot, chronic Surgical History H/O bilateral mastectomy H/O esophagogastroduodenoscopy (10/19/21) History of appendectomy History of hysterectomy Status post left breast lumpectomy Status post right breast lumpectomy Family History Father CAD (coronary artery disease) CHF (congestive heart failure) Hyperlipidemia Hypertension Lung disease Stroke Other Diabetes Denies family history of Clotting disorder Dementia Psychiatric illness Chronic kidney disease (CKD) Suicide Anesthesia complication Bleeding disorder Family history of premature coronary artery disease Cancer Social History Smoking and tobacco status: current every day smoker cigarettes Packs smoked per day: 2 Second hand smoke exposure: Yes Smoking risk assessment/counseling performed?: Yes Alcohol intake: never Desire information about alcohol rehabilitation?: No Counseling given: No Substance/Drug Use: never Desire information about substance/drug rehabilitation?: No Counseling given: No Adopted: No Caregiver/support person: No Lives independently: Yes Household members: family Housing: House Marital status: Single Number of children: 1 service: No Current occupational status: employed Current gender identity: Female Physical Exam Const: GENERAL APPEARANCE: cooperative and comfortable ORIENTATION/CONSCIOUSNESS: Yes awake, Yes oriented to person, Yes oriented to place and Yes oriented to time HENMT: COMMON NORMALS: normocephalic, atraumatic and hearing grossly normal bilaterally HEAD & SCALP: normocephalic and atraumatic Resp: COMMON NORMALS: normal respiratory effort, No retractions, No use of accessory muscles and clear to auscultation bilaterally AUSCULTATION: clear to auscultation bilaterally Cardio: RATE: tachycardic RHYTHM: abnormal rhythm irregularly irregular GI: COMMON NORMALS: Soft to palpation and No hepatosplenomegaly present AUSCULTATION: Yes normoactive bowel sounds PALPATION: Yes Soft to palpation, No Tenderness to palpation present (GI), No Guarding due to palpation present (GI) and Yes No hepatosplenomegaly present Extremity: COMMON NORMALS: normal to inspection, capillary refill normal, no clubbing, cyanosis or edema, no calf tenderness and no pedal edema Neuro: SENSORIUM/ORIENTATION: Yes oriented to person, Yes oriented to place and Yes oriented to time Skin: COMMON NORMALS: no rashes or lesions noted GENERAL SKIN EXAM: no rashes or lesions noted Course Vital Signs: Vital signs: Vital Signs Temperature 97.8 F 10/08/22 04:28 Pulse Rate 69 10/08/22 04:37 Respiratory Rate 18 10/07/22 23:29 Blood Pressure 103/58 10/08/22 04:28 Pulse Oximetry 92 10/08/22 04:28 Oxygen Delivery Me thod Room Air 10/07/22 23:29 MDM - Weakness Medical Decision Making Patient in a flutter. She responds well to diltiazem she currently on a 5 mg drip. She she states she has not Run out of any of her medication she has been taking her p.o. diltiazem regularly. She is in persistent a flutter at this time. Her ventricular rate is controlled on the drip. No acute ST changes noted serial troponins are pending first delta Trope is -1. Discussed with the hospitalist orders written. Medical Records I reviewed the patient's medical records. Lab Data I reviewed the patient's lab results. 10/07/22 12:07 10/08/22 03:20 Radiology Impressions Chest X-Ray 10/07/22 11:54 IMPRESSION: 1. No acute cardiopulmonary finding. Laboratory Results WBC 12.7 10^3/uL (4.0-10.0) H 10/07/22 12:07 RBC 5.26 10^6/uL (4.1-5.3) 10/07/22 12:07 Hgb 14.5 g/dL (11.5-15.3) 10/07/22 12:07 Hct 45.4 % (37.0-47.0) 10/07/22 12:07 MCV 86.3 fl (81-99) 10/07/22 12:07 MCH 27.6 pg (28.0-34.0) L 10/07/22 12:07 MCHC 31.9 g/dL (30.0-36.0) 10/07/22 12:07 RDW 14.0 % (12.1-15.1) 10/07/22 12:07 Plt Count 333 10^3/cmm (130-400) 10/07/22 12:07 MPV 10.6 fL (7.4-10.4) H 10/07/22 12:07 Neut % (Auto) 63.2 % 10/07/22 12:07 Lymph % (Auto) 28.4 % 10/07/22 12:07 [place] % (Auto) 5.2 % 10/07/22 12:07 Eos % (Auto) 2.2 % 10/07/22 12:07 Baso % (Auto) 0.6 % 10/07/22 12:07 Neut # (Auto) 8.00 10^3/uL (1.8-7.7) H 10/07/22 12:07 Lymph # (Auto) 3.6 10^3/uL (0.8-4.8) 10/07/22 12:07 [place] # (Auto) 0.7 10^3/uL (0.2-0.9) 10/07/22 12:07 Eos # (Auto) 0.3 10^3/uL (0.0-0.8) 10/07/22 12:07 Baso # (Auto) 0.1 10^3/uL (0.0-0.1) 10/07/22 12:07 Nucleated RBC % (auto) 0 % 10/07/22 12:07 Nucleated RBCs # 0.0 /100WBC 10/07/22 12:07 Sodium 133 mmol/L (136-145) L 10/07/22 12:07 Potassium 4.8 mmol/L (3.5-5.1) 10/07/22 12:07 Chloride 97 mmol/L (98-107) L 10/07/22 12:07 Carbon Dioxide 25 mmol/L (22-29) 10/07/22 12:07 Anion Gap 15.8 (5-19) 10/07/22 12:07 BUN 14 mg/dL (6-20) 10/07/22 12:07 Creatinine 0.6 mg/dL (0.5-0.9) 10/07/22 12:07 GFR Calculation 102.7 mL/min (90-130) 10/07/22 12:07 Glucose 304 mg/dL (65-115) H 10/07/22 12:07 Calculated Osmolality 288 mOsm/kg (285-295) 10/07/22 12:07 Calcium 8.5 mg/dL (8.5-10.5) 10/07/22 12:07 Magnesium 1.9 mg/dL (1.7-2.3) 10/07/22 12:07 Total Bilirubin 0.2 mg/dL (0.15-1.2) 10/07/22 12:07 AST 6 U/L (0-32) 10/07/22 12:07 ALT 7 U/L (0-33) 10/07/22 12:07 Alkaline Phosphatase 106 U/L (35-105) H 10/07/22 12:07 Troponin T Baseline 9 ng/L (0-10) 10/07/22 12:07 Troponin T 120 Minute 8.05 ng/L (0-10) 10/07/22 13:58 Delta Troponin T -0.95 ABS# (0-10) L 10/07/22 13:58 Total Protein 6.3 g/dL (6.6-8.7) L 10/07/22 12:07 Albumin 3.0 g/dL (3.5-5.2) L 10/07/22 12:07 Globulin 3.3 g/dL (1.3-4.6) 10/07/22 12:07 TSH 3.03 uIU/mL (0.27-4.20) 10/07/22 12:07 Discharge Plan Discharge Patient Disposition: Admitted As Inpatient Admit Provider: Binu Interiano Clinical Impression: Atrial flutter with rapid ventricular response, Gastroesophageal reflux disease, Diabetes mellitus with hyperglycemia, with long-term current use of insulin Condition: Stable Coding Level of Care Code ED Welder Apprentice Combination for Briana Nj
[2022-10-07] MEDS: dilTIAZem 100 MG in sodium chloride 0.9% (add-van) 100 ML IV (13:32)
--- NOTE | 2022-10-07 13:39 | PC.PHAR ---
pt states she takes care of her own medications-pt states her pacerone 100mg bid filled 06/24/22 30d/s was dced about 2 months ago-pt states she is no longer taking victoza ext shows last filled 10/12/21 rx written on 04/29/22-pt states her glipizide 10mg bid was dced ext shows last filled 07/18/22 30d/s-
[2022-10-07 14:09] LABS: Troponin(5th) Baseline 9 ng/L (0-10)
--- NOTE | 2022-10-07 14:12 | ECG_ITS ---
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 Measurements Intervals [place] Rate: 71 P: 0 AK: 0 QRS: 5 QRSD: 109 T: 67 QT: 421 QTc: 457 Interpretive Statements ATRIAL FLUTTER/TACHYCARDIA MODERATE INTRAVENTRICULAR CONDUCTION DELAY [105+ ms QRS DURATION, 80+ ms Q/S IN V1/V2, NO Q AND 60+ ms R IN I/aVL/V5/V6] Compared to ECG 10/07/2022 12:01:07 ST (T wave) deviation no longer present Electronically Signed On 10-07-2022 17:39:19 CDT by Nan Coe M.D. [id number]
[2022-10-07 14:17] LABS: Thyroid Stimulating Hormone 3.03 uIU/mL (0.27-4.20)
[2022-10-07 14:54] LABS: Troponin 5 2HR 8.05 ng/L (0-10)
[2022-10-07 15:03] LABS: Troponin 5 2HR Delta -0.95 ABS# (0-10)
--- NOTE | 2022-10-07 15:25 | PM.HP ---
Providers/Chief Complaint Primary Care Provider: RICHARD Flores Chief Complaint: weakness, dizzy History of Present Illness Pleasant 57-year-old with history of atrial fibrillation on anticoagulation with Xarelto, on rate control with diltiazem, has been scheduled for ablation back in March, however, due to family health issues had not been able to follow-up, presents due to tachycardia since , she has been feeling palpitations, as well as was registering tachycardia on her pulse oximeter. In ER she is found to be in atrial fibrillation/flutter, heart rates up in 130s. Did not respond to Cardizem push and had to be started on Cardizem drip. Denies chest pain or pressure. Not short of breath. Denies any recent illness. First opponent is normal. Has not missed any of her medications. Review of Systems Const: Denies: fever(s), chills, body aches or malaise ENMT: Denies: throat pain Card: Reports: palpitations; Denies: chest pain, edema, pre-syncope or dyspnea on exertion Resp: Denies: dyspnea, productive cough, change in phlegm color or hemoptysis GI: Denies: abdominal pain, nausea, vomiting, diarrhea, constipation, hematochezia or melena : Denies: flank pain, urinary frequency or hematuria Musc: Denies: back pain, joint swelling or joint redness Skin/Breast: Denies: rash or new lesions Neuro: Denies: headache(s), numbness in extremities, weakness in extremities, dizziness, confusion or seizure-like activity Medications/Allergies Home Medications Medication Instructions Recorded Confirmed Last Taken Type acetaminophen 500 mg tablet 1,000 mg PO BID@06/29/20 10/07/22 10/07/22 10:00 History (Tylenol Extra Strength) loperamide 2 mg tablet 2 - 4 mg PO BID PRN Diarrhea 06/29/20 10/07/22 Unknown History (Anti-Diarrheal (loperamide)) nitroglycerin 0.4 mg sublingual 0.4 mg sublingual Q5M PRN Chest 06/18/21 10/07/22 10/07/22 History tablet (Nitrostat) Pain trolamine salicylate 10 % topical 1 applic topical TID PRN Pain 07/09/21 10/07/22 10/18/21 History cream (Aspercreme) Diabetic Shoes with 3 Pairs of #1 ea 02/25/22 10/07/22 Unknown Rx Inserts furosemide 20 mg tablet (Lasix) 20 mg PO QAM PRN Edema #30 tabs 04/29/22 10/07/22 Unknown Rx Diabetic shoes with 3 sets of #1 ea 05/22/22 10/07/22 Unknown Rx inserts benzonatate 200 mg capsule 200 mg PO TID PRN cough #90 caps 06/07/22 10/07/22 Unknown Rx levocetirizine 5 mg tablet 5 mg PO BEDTIME@06/28/22 10/07/22 10/06/22 History albuterol sulfate 90 mcg/actuation 2 puff inhalation QID PRN 10/07/22 10/07/22 Unknown History aerosol inhaler Shortness Of Breath ascorbate calcium (vitamin C) 500 1,000 mg PO BEDTIME@10/07/22 10/07/22 10/06/22 History mg tablet diltiazem HCl 180 mg 180 mg PO DAILY@10/07/22 10/07/22 10/07/22 10:00 History capsule,extended release 24 hr, controlled (DILT-XR) doxepin 10 mg capsule 10 mg PO BEDTIME@10/07/22 10/07/22 10/06/22 History duloxetine 60 mg capsule,delayed 60 mg PO BID@10/07/22 10/07/22 10/07/22 10:00 History release gabapentin 300 mg capsule 300 mg PO BID@10/07/22 10/07/22 10/07/22 10:00 History insulin detemir U-100 100 unit/mL 60 unit SUBCUT BEDTIME@10/07/22 10/07/22 10/06/22 History (3 mL) subcutaneous pen (Levemir FlexTouch U-100 Insulin) rivaroxaban 20 mg tablet (Xarelto) 20 mg PO BEDTIME@10/07/22 10/07/22 10/06/22 History tizanidine 2 mg tablet 2 mg PO BEDTIME@10/07/22 10/07/22 10/06/22 History Allergies Allergy/AdvReac Type Severity Reaction Status Date / Time azithromycin [From Zithromax] Allergy Unknown ADR-Gastrointestinal Verified 10/07/22 13:32 Upset sulfamethoxazole Allergy Unknown ADR-Gastrointestinal Verified 10/07/22 13:32 [From Bactrim] Upset trimethoprim [From Bactrim] Allergy Unknown ADR-Gastrointestinal Verified 10/07/22 13:32 Upset PFSH Acute PFSH: Medical History (Updated 10/07/22 @ 15:32 by Binu Interiano MD) Asthma Atrial fibrillation Benign hypertension Breast cancer, left breast Breast cancer, right COPD (chronic obstructive pulmonary disease) COPD exacerbation Diabetes mellitus with hyperglycemia, with long-term current use of insulin Dyslipidemia Gastroesophageal reflux disease History of amputation of great toe Open wound of foot Right great toe Osteoarthritis of spine SVT (supraventricular tachycardia) Ulcer of foot, chronic Surgical History H/O bilateral mastectomy H/O esophagogastroduodenoscopy (10/19/21) History of appendectomy History of hysterectomy Status post left breast lumpectomy Status post right breast lumpectomy Family History Father CAD (coronary artery disease) CHF (congestive heart failure) Hyperlipidemia Hypertension Lung disease Stroke Other Diabetes Denies family history of Clotting disorder Dementia Psychiatric illness Chronic kidney disease (CKD) Suicide Anesthesia complication Bleeding disorder Family history of premature coronary artery disease Cancer Social History Smoking and tobacco status: current every day smoker cigarettes Packs smoked per day: 2 Second hand smoke exposure: Yes Smoking risk assessment/counseling performed?: Yes Alcohol intake: never Desire information about alcohol rehabilitation?: No Counseling given: No Substance/Drug Use: never Desire information about substance/drug rehabilitation?: No Counseling given: No Adopted: No Caregiver/support person: No Lives independently: Yes Household members: family Housing: House Marital status: Single Number of children: 1 service: No Current occupational status: employed Current gender identity: Female Vitals/I&O/Wt Last Vital Signs Temp 97.9 F 10/07/22 11:52 Pulse 80 10/07/22 14:01 Resp 16 10/07/22 12:51 BP 120/65 10/07/22 14:01 Pulse Ox 95 10/07/22 14:01 O2 Del Method Room Air 10/07/22 14:01 10/07/22 10/07/22 10/07/22 06:59 14:59 22:59 Intake Total 1000 / 1000 Balance 1000 / 1000 Weight last 48 hrs Weight 110.223 kg Physical Exam Const: COMMON NORMALS: patient oriented x3 and alert GENERAL APPEARANCE: cooperative ORIENTATION/CONSCIOUSNESS: Yes awake HENMT: COMMON NORMALS: oropharynx normal Neck/C-Spine: COMMON NORMALS: no JVD Resp: COMMON NORMALS: normal respiratory effort and clear to auscultation bilaterally AUSCULTATION: clear to auscultation bilaterally Cardio: COMMON NORMALS: no JVD, regular rhythm, S1 normal heart sound present, S2 normal heart sound present and No murmurs present (Cardio) RHYTHM: abnormal rhythm irregularly irregular HEART SOUNDS: S1 normal heart sound present and S2 normal heart sound present GI: COMMON NORMALS: Normal to inspection, nondistended, normoactive bowel sounds present, Soft to palpation and non-tender PALPATION: Yes Soft to palpation Extremity: COMMON NORMALS: no joint enlargement and no pedal edema OTHER: Charcot boot LLE Neuro: COMMON NORMALS: patient oriented x3 and moves all extremities SENSORIUM/ORIENTATION: Yes alert Skin: COMMON NORMALS: no rashes or lesions noted GENERAL SKIN EXAM: no rashes or lesions noted Data 10/07/22 12:07 10/07/22 12:07 A&P Assessment and plan (1) Atrial flutter with rapid ventricular response: Symptomatic persistent atrial flutter with RVR heart rates into the 130s, with palpitations, feeling unwell. Blood pressure soft in ER, Cardizem drip going at milligram per hour. Monitor blood pressure, at risk of severe potentially life-threatening hypotension with atrial fibrillation with RVR as well as Cardizem. Transient hypotension ER down to 87/65. Continue Cardizem drip. Start Cardizem p.o. 60 mg every 6 hours patient only takes extended release Cardizem 180 mg. Discussed with her consideration of going up to 240 mg after discharge. She has been also in the process of arranging for cardiac ablation. Due to health issues in the family had to postpone this but states will resume seeking ablation, reinforced with her given that she does not appear to have any discernible trigger for the paroxysmal atrial flutter with RVR. TSH noted WNL. Check magnesium. Potassium noted okay. Complete troponin EKG series to assess for any ischemia, so far not suggestive. Monitor on telemetry on CSU. Consider TTE once heart rate under better control. Continue Xarelto. (2) Goals of care, counseling/discussion: In case of cardiopulmonary arrest would want cardiopulmonary resuscitation. Entered full code. In case could not make her own decisions names her son as healthcare proxy. Plan DM2: Continue insulin, add sliding scale. Check Accu-Cheks. Consistent carb diet. HTN COPD: Not in exacerbation HLD Charcot foot Other medical problems ER documentation reviewed. Discussed with ER physician. Attestations Medical Necessity Statement*: Place in observation for assessment management of atrial flutter with RVR, requiring Cardizem infusion, associated with transient hypotension ER at risk of further hypotension. Diagnoses Atrial flutter with rapid ventricular response I48.92 Goals of care, counseling/discussion Z71.89
[2022-10-07 16:28] LABS: Magnesium 1.9 mg/dL (1.7-2.3)
[2022-10-07 17:03] LABS: Glucose Point of Care 308 mg/dL (70-110)
[2022-10-07] MEDS: dilTIAZem 60 mg Tablet PO ×2 (17:23→23:30)
[2022-10-07] MEDS: insulin lispro 100 unit/1 mL SUBCUT ×2 (17:59→21:33)
[2022-10-07 18:56] LABS: Troponin 5 6HR 7.24 ng/L (0-10)
[2022-10-07 19:03] LABS: Troponin 5 6HR Delta -1.76 ng/L (0-12)
--- NOTE | 2022-10-07 19:28 | ECG_ITS ---
[facility] Test Date: 2022-10-07 Pat Name: Soni Head Department: Room: 111 Gender: Female Systems Development Consultant: : 1965 Requested By: Cj Palacios Order Number: [id number] Eric MD: Nan Coe M.D. Measurements Intervals [place] Rate: 75 P: 0 RI: 0 QRS: 167 QRSD: 118 T: 112 QT: 411 QTc: 460 Interpretive Statements ATRIAL FLUTTER POSSIBLE RIGHT VENTRICULAR HYPERTROPHY [SOME/ALL OF: PROMINENT R IN V1, LATE TRANSITION, RAD, GENOVEVA, SSS] Compared to ECG 10/07/2022 14:12:58 Intraventricular conduction delay no longer present Electronically Signed On 10-08-2022 20:29:01 CDT by Nan Coe M.D. [id number]
[2022-10-07 20:48] LABS: Glucose Point of Care 302 mg/dL (70-110)
[2022-10-07] MEDS: tizanidine 4 mg Tablet 2 MG PO (21:31)
[2022-10-07] MEDS: gabapentin 300 mg Capsule PO (21:31)
[2022-10-07] MEDS: rivaroxaban 10 mg Tablet 20 MG PO (21:32)
[2022-10-07] MEDS: doxepin 10 mg Capsule PO (21:32)
[2022-10-07] MEDS: duloxetine 60 mg Capsule PO (21:32)
[2022-10-07] MEDS: acetaminophen 500 mg Tablet 1000 MG PO (21:32)
[2022-10-07] MEDS: insulin glargine 100 units/1 mL 60 UNIT SUBCUT (21:33)
[2022-10-08 04:18] LABS: Anion Gap 12.7 (5-19); Blood Urea Nitrogen 12 mg/dL (6-20); Calcium 8.6 mg/dL (8.5-10.5); Carbon Dioxide 28 mmol/L (22-29); Chloride 105 mmol/L (98-107); Glomerular Filtration Rate 102.7 mL/min (90-130); Glucose 128 mg/dL (65-115); Osmolality Calculated 293 mOsm/kg (285-295); Potassium 4.7 mmol/L (3.5-5.1); Sodium 141 mmol/L (136-145)
[2022-10-08 04:28] VITALS: BP 103/58; PULSE 75; TEMP 36.6; O2SAT 92
[2022-10-08 04:37] VITALS: PULSE 69
[2022-10-08] MEDS: dilTIAZem 60 mg Tablet PO (05:06)
[2022-10-08] MEDS: dilTIAZem 100 MG in sodium chloride 0.9% (add-van) 100 ML IV (05:48)
[2022-10-08 06:40] LABS: Glucose Point of Care 226 mg/dL (70-110)
[2022-10-08 08:00] VITALS: BP 100/42; PULSE 76; PULSE 85; RESP 16; RESP 17; TEMP 36.7; O2SAT 96
[2022-10-08] MEDS: insulin lispro 100 unit/1 mL SUBCUT ×2 (08:01→12:51)
--- NOTE | 2022-10-08 08:29 | USCV_ITS ---
[facility] Age: 57 Gender: F : 1965 Exam Date: 10/08/2022 08:59 Ordering Phys: Binu nIteriano MD Technologist: Brayan Macias Exam Location: [facility] [place] Indication: a fib recurrent BP: 124 / 74 HR: 71 Rhythm: Sinus Technical Quality: Adequate MEASUREMENTS (Male / Female) Normal Values 2D ECHO LV Diastolic Diameter PLAX 4.0 cm 4.2 - 5.9 / 3.9 - 5.3 cm LV Systolic Diameter PLAX 2.2 cm IVS Diastolic Thickness 1.3 cm 0.6 - 1.0 / 0.6 - 0.9 cm IVS Systolic Thickness 1.6 cm LVPW Diastolic Thickness 1.1 cm 0.6 - 1.0 / 0.6 - 0.9 cm LVPW Systolic Thickness 1.3 cm LVOT Diameter 2.0 cm LV Ejection Fraction 2D Teich 77.9 % LV Ejection Fraction MOD 2C 78.0 % LV Ejection Fraction 2C AL 78.5 % LA Diameter 3.5 cm IVC Diameter 1.7 cm M-MODE Aortic Annulus Diameter 3.1 cm LA Ao Ratio MM 1.3 MV E Point Septal Separation 1.0 cm DOPPLER AV Peak Velocity 139.0 cm/s LVOT Peak Velocity 90.0 cm/s AV Area Cont Eq vti 2.4 cm squared AV Area Cont Eq pk 2.1 cm squared MV Area PHT 5.0 cm squared Mitral E to A Ratio 1.6 MV E' Velocity 48.5 cm/s Mitral E to MV E' Ratio 6.9 Mitral E to LV E' Lateral Ratio 7.3 Mitral E to LV E' Septal Ratio 6.5 TR Peak Velocity 128.3 cm/s TR Peak Gradient 6.6 mmHg TV Peak E Velocity 84.0 cm/s Right Atrial Pressure 3.0 mmHg Pulmonary Artery Systolic Pressu 9.6 mmHg RV Acceleration Time 0.1 s FINDINGS Left Ventricle Normal left ventricular size and systolic function, EF 74 %. No regional wall motion abnormalities. Right Ventricle The right ventricle is normal in size and function. Right Atrium The right atrium is normal in size. Left Atrium The left atrium is normal in size. 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 Pericardium Normal pericardium without effusion. Aorta Normal ascending aorta dimension. IVC Inferior vena cava not visualized. CONCLUSIONS Normal left ventricular size and systolic function, EF 74 %. No regional wall motion abnormalities. Normal cardiac chamber sizes. No gross valvular abnormalities. There is no pericardial effusion. There are no intracardiac masses. 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 There is no pericardial effusion. Comparison with the previous study is difficult because of the difference in the technical quality. Dr Theodora Valladares MD FACC (Electronically Signed) Final Date: 08 October 2022 19:48 S
--- NOTE | 2022-10-08 08:41 | PC.CHAP ---
Pastoral Care Encounter/Spiritual Assessment Type of Contact [] Declined brimming machine operator visit [] Patient/Family/Request visit [] Outpatient visit [] Follow-up visit [] Physician referral [] Code/Alert [x] Routine visit [] Staff referral [] Actively dying [] Patient sleeping [] Family support [] [] Out of room [] Palliative care [] [] Receiving care in room [] Pre-surgical visit [] Trauma [] Long length of stay [] ICU visit [] Other: Relational/Emotional Strength [x] Patient feels connected with others/family/visitors/staff [] Distress [] Loneliness/isolation [] Abandonment Spirituality of Patient [] Person of Mikayla [] Attends Rastafarian of their Mikayla [x] Believes in Prayer [] Reads Bible or Baptism materials [] There are Spiritual issues to be addressed Geographic Analyst Interventions [x] Prayer [x] Active listening [] Non-anxious presence [] Spiritual/emotional support [] Crisis/trauma care [] Spiritual counseling [] Bereavement support [] Provided bereavement packet [] Provided Bible/devotional materials [] Provided toy/stuffed animal, coloring book to patient or family member [] Provided Communion [] Anointing/[place] [] Salvation [x] Completed spiritual assessment [] Other: Impact on Illness or Injury [] Angry [] Fearful [] Anxious [] Often cries [] Exhaustion [] Unable to work [] Unable to attend restorationism [] Unable to walk/stand [] Unable to read [] Unable to drive [] Unable to eat/drink [] Unable to sleep [] Unable to be with family [] Patient intubated [] Other: Summary Time spent with patient 5 min
[2022-10-08] MEDS: gabapentin 300 mg Capsule PO (09:45)
[2022-10-08] MEDS: dilTIAZem ER (24HR) 240 mg Capsule PO (09:45)
[2022-10-08] MEDS: acetaminophen 500 mg Tablet 1000 MG PO (09:46)
[2022-10-08] MEDS: duloxetine 60 mg Capsule PO (09:50)
[2022-10-08 11:10] VITALS: BP 109/81; PULSE 80; RESP 17; O2SAT 96
[2022-10-08 11:23] LABS: Glucose Point of Care 367 mg/dL (70-110)
[2022-10-08 11:30] LABS: Blood Urine 3+ (Negative); Glucose Urine UA 4+ (Normal); Ketones Urine 1+ (Negative); Protein Urine 1+ (Negative); Urine Appearance Cloudy (CLEAR); Urine Color Yellow (Yellow); pH Urine 5 (5-7)
[2022-10-08 11:31] LABS: Add Urine Culture? Yes; Add Urine Microscopic? YES; Bacteria Urine 4+ /hpf; Bilirubin Urine Neg (Negative); Leukocyte Esterase Urine 2+ (Negative); Mucus Urine 1+ /hpf; Nitrate Urine Positive (Negative); Squamous Epithelial Cell Urine 0-4 /hpf (0-5); Urobilinogen Urine Norm (Negative); WBC Urine 55-80 /hpf (0-5)
--- NOTE | 2022-10-08 12:13 | CTR_ITS ---
PROCEDURE INFORMATION: Exam: CT Abdomen And Pelvis Without Contrast Exam date and time: 10/08/2022 1:52 PM Age: 57 years old Clinical indication: Other: UTI; Prior surgery; Surgery date: 6+ months; Surgery type: Appy, port, hyst, bilater breast lumpectomy; Additional info: Recurrent UTI TECHNIQUE: Imaging protocol: Computed tomography of the abdomen and pelvis without contrast. Axial, coronal and sagittal reformatted images were created and reviewed. Radiation optimization: All CT scans at this facility use at least one of these dose optimization techniques: automated exposure control; mA and/or kV adjustment per patient size (includes targeted exams where dose is matched to clinical indication); or iterative reconstruction. REPORTING DATA: Count of CT and Cardiac NM exams in prior 12 months: This patient has received 6 known CTs and 0 known cardiac nuclear medicine studies in the 12 months prior to the current study. COMPARISON: CT abdomen pelvis w con* [id number] 08/22/2022 8:32 AM RADIATION DOSE METRICS: Total DLP (mGy-cm): 1131.78 FINDINGS: Lungs: Linear stranding and groundglass at the lung bases, likely due to atelectasis and/or scarring. Diaphragm: Elevated left hemidiaphragm. Liver: Mild hepatomegaly. Gallbladder and bile ducts: Cholelithiasis. Pancreas: Unremarkable. Spleen: Coarse calcified splenic granulomata. Adrenal glands: Normal. No mass. Kidneys and ureters: Right renal malrotation. Nonspecific bilateral perinephric stranding and edema. Nonobstructing right renal calculi. No hydronephrosis. Stomach and bowel: No bowel wall thickening. No obstruction. No pneumatosis. Appendix: Status post appendectomy by history. Intraperitoneal space: No free fluid. No organized fluid collection. No free air. Vasculature: Mild atherosclerotic disease. No aneurysm. Lymph nodes: No pathologically enlarged lymph nodes. Urinary bladder: Circumferential urinary bladder wall thickening. Small focus of gas in the nondependent urinary bladder, consistent with recent instrumentation versus gas producing organism. Reproductive: Unremarkable. Bones/joints: No acute osseous abnormality. Osteopenia. Degenerative changes. Soft tissues: Unremarkable. CT/CT kidney stone [id number] IMPRESSION: 1. Circumferential urinary bladder wall thickening and nonspecific bilateral perinephric stranding and edema. Infection/pyelonephritis cannot be excluded without intravenous contrast. 2. Additional findings, as above.
[2022-10-08] MEDS: cefTRIAXone 1,000 MG in sodium chloride 0.9% (plus) 50 ML 100 MG IV (13:09)
[2022-10-08 14:00] VITALS: PULSE 83
[2022-10-08 16:00] VITALS: BP 133/93; PULSE 81; RESP 17; O2SAT 92
[2022-10-08 16:43] LABS: Glucose Point of Care 317 mg/dL (70-110)
--- NOTE | 2022-10-08 17:01 | PM.DCS ---
Discharge Providers Date of Admission: 10/07/22 16:12 Date of Discharge: October 08, 2022 Attending Provider at Admission: Binu Interiano Attending Provider at Discharge: Binu Interiano Primary Care Provider: RICHARD Flores Diagnoses at Discharge Discharge Diagnosis (1) Atrial flutter with rapid ventricular response: Status: Acute (2) Goals of care, counseling/discussion: Status: Acute Reason for Visit Reason for Visit: weakness, dizzy Hospital Course Hospital Course Pleasant 57-year-old lady with history of SVT, atrial fibrillation, at home on diltiazem 180 mg extended release daily, xarelto, history of recurrent urinary tract infection as well as kidney infection, remote history of kidney trauma and laceration, COPD, GERD, other comorbidities was hospitalized for assessment management after presenting with tachycardia persistent since last week, palpitations, found to be in atrial flutter with variable conduction/fibrillation heart rates up to 130s. Did not respond to Cardizem push in ER to be started on Cardizem drip. Did well with drip although initially hypotensive, eventually with improvement in heart rates blood pressure improved as well. Transition to 60 mg every 6 Cardizem p.o., subsequently extended release Cardizem increased to 240 mg this morning with for the most part good control, although did have an episode of elevation of heart rate up to 120 with exertion which subsided with rest. Echocardiogram was obtained and pending. Cardiac studies on presentation including troponin series not suggestive of acute NC. She remains chest pain-free. She states previously there had been arrangements made for her to follow-up with electrophysiology for assessment for ablation although she could not maintain follow-up at that time due to health issues in the family, she states currently she intends to resume that follow-up. On presentation otherwise asymptomatic. Chest x-ray unremarkable. However, noted mild cytosis 12.7. UA requested, UA coming back with recurrence of urinary tract infection. Discussed with her, started on ceftriaxone. As she does have recurrent pyelonephritis obtained also CT renal protocol. No noted stone or obstruction. Noted circumferential urinary bladder wall thickening and nonspecific bilateral perinephric stranding and edema. Infection/pyelonephritis not excluded. She otherwise remains afebrile, without other signs of sepsis. She would like to return home. Discussed with her risks with progression of pyelonephritis, worsening infection, sepsis, she understands to seek medical attention immediately in case of any worsening or concerning symptoms. She will continue on extended course of cefdinir for 14 days. Urine culture is pending, please follow-up results. Previously E. coli resistant to Unasyn, quinolones. She is allergic to Bactrim. Given recurrent cystitis and polynephritis, possibility of chronic cystitis? And recurrent pyelonephritis she is asked to follow-up with urology. Requesting referral to be sent to urology at [facility] as per her preference. She is asked to follow-up with infectious disease in [facility]. Physical Exam Const: COMMON NORMALS: patient oriented x3 and alert GENERAL APPEARANCE: cooperative ORIENTATION/CONSCIOUSNESS: Yes awake HENMT: COMMON NORMALS: oropharynx normal Neck/C-Spine: COMMON NORMALS: no JVD Resp: COMMON NORMALS: normal respiratory effort and clear to auscultation bilaterally AUSCULTATION: clear to auscultation bilaterally Cardio: COMMON NORMALS: no JVD, regular rhythm, S1 normal heart sound present, S2 normal heart sound present and No murmurs present (Cardio) RHYTHM: regular rhythm HEART SOUNDS: S1 normal heart sound present and S2 normal heart sound present GI: COMMON NORMALS: Normal to inspection, nondistended, normoactive bowel sounds present, Soft to palpation and non-tender PALPATION: Yes Soft to palpation Extremity: COMMON NORMALS: no joint enlargement and no pedal edema Neuro: COMMON NORMALS: patient oriented x3 and moves all extremities SENSORIUM/ORIENTATION: Yes alert Skin: COMMON NORMALS: no rashes or lesions noted GENERAL SKIN EXAM: no rashes or lesions noted Discharge Data Studies Completed and Pending Completed Studies During Hospitalization Category Date Time Status CT abdomen renal stone [CT kidney stone [id number]] Routine Cat Scan 10/08/22 12:13 Completed XR chest 1V portable [id number] Stat Exams 10/07/22 11:54 Completed Pending at discharge Category Date Time Status Basic Metabolic Panel AM LABS Lab 10/09/22 04:00 Ordered Basic Metabolic Panel AM LABS Lab 10/10/22 04:00 Ordered Complete Blood Count w/Auto AM LABS Lab 10/09/22 04:00 Ordered Complete Blood Count w/Auto AM LABS Lab 10/10/22 04:00 Ordered Complete Blood Count w/Auto AM LABS Lab 10/11/22 04:00 Ordered Magnesium AM LABS Lab 10/09/22 04:00 Ordered Magnesium AM LABS Lab 10/10/22 04:00 Ordered Urine Culture Routine Lab 10/08/22 10:50 Received CV. echo complete* [id number] Routine Ultrasound 10/08/22 08:29 Taken Radiology Impressions Chest X-Ray 10/07/22 11:54 IMPRESSION: 1. No acute cardiopulmonary finding. Abdomen/Pelvis CT 10/08/22 12:13 IMPRESSION: 1. Circumferential urinary bladder wall thickening and nonspecific bilateral perinephric stranding and edema. Infection/pyelonephritis cannot be excluded without intravenous contrast. 2. Additional findings, as above. Laboratory Results WBC 12.7 10^3/uL (4.0-10.0) H 10/07/22 12:07 RBC 5.26 10^6/uL (4.1-5.3) 10/07/22 12:07 Hgb 14.5 g/dL (11.5-15.3) 10/07/22 12:07 Hct 45.4 % (37.0-47.0) 10/07/22 12:07 MCV 86.3 fl (81-99) 10/07/22 12:07 MCH 27.6 pg (28.0-34.0) L 10/07/22 12:07 MCHC 31.9 g/dL (30.0-36.0) 10/07/22 12:07 RDW 14.0 % (12.1-15.1) 10/07/22 12:07 Plt Count 333 10^3/cmm (130-400) 10/07/22 12:07 MPV 10.6 fL (7.4-10.4) H 10/07/22 12:07 Neut % (Auto) 63.2 % 10/07/22 12:07 Lymph % (Auto) 28.4 % 10/07/22 12:07 [place] % (Auto) 5.2 % 10/07/22 12:07 Eos % (Auto) 2.2 % 10/07/22 12:07 Baso % (Auto) 0.6 % 10/07/22 12:07 Neut # (Auto) 8.00 10^3/uL (1.8-7.7) H 10/07/22 12:07 Lymph # (Auto) 3.6 10^3/uL (0.8-4.8) 10/07/22 12:07 [place] # (Auto) 0.7 10^3/uL (0.2-0.9) 10/07/22 12:07 Eos # (Auto) 0.3 10^3/uL (0.0-0.8) 10/07/22 12:07 Baso # (Auto) 0.1 10^3/uL (0.0-0.1) 10/07/22 12:07 Nucleated RBC % (auto) 0 % 10/07/22 12:07 Nucleated RBCs # 0.0 /100WBC 10/07/22 12:07 Sodium 141 mmol/L (136-145) 10/08/22 03:20 Potassium 4.7 mmol/L (3.5-5.1) 10/08/22 03:20 Chloride 105 mmol/L (98-107) 10/08/22 03:20 Carbon Dioxide 28 mmol/L (22-29) 10/08/22 03:20 Anion Gap 12.7 (5-19) 10/08/22 03:20 BUN 12 mg/dL (6-20) 10/08/22 03:20 Creatinine 0.6 mg/dL (0.5-0.9) 10/08/22 03:20 GFR Calculation 102.7 mL/min (90-130) 10/08/22 03:20 Glucose 128 mg/dL (65-115) H 10/08/22 03:20 POC Glucose 317 mg/dL (70-110) H 10/08/22 16:33 Calculated Osmolality 293 mOsm/kg (285-295) 10/08/22 03:20 Calcium 8.6 mg/dL (8.5-10.5) 10/08/22 03:20 Magnesium 2.0 mg/dL (1.7-2.3) 10/08/22 03:20 Total Bilirubin 0.2 mg/dL (0.15-1.2) 10/07/22 12:07 AST 6 U/L (0-32) 10/07/22 12:07 ALT 7 U/L (0-33) 10/07/22 12:07 Alkaline Phosphatase 106 U/L (35-105) H 10/07/22 12:07 Troponin T Baseline 9 ng/L (0-10) 10/07/22 12:07 Troponin T 120 Minute 8.05 ng/L (0-10) 10/07/22 13:58 Delta Troponin T -0.95 ABS# (0-10) L 10/07/22 13:58 Troponin T Hi Sens 6Hr 7.24 ng/L (0-10) 10/07/22 18:22 Troponin T Hi Sens 6Hr Delta -1.76 ng/L (0-12) L 10/07/22 18:22 Total Protein 6.3 g/dL (6.6-8.7) L 10/07/22 12:07 Albumin 3.0 g/dL (3.5-5.2) L 10/07/22 12:07 Globulin 3.3 g/dL (1.3-4.6) 10/07/22 12:07 TSH 3.03 uIU/mL (0.27-4.20) 10/07/22 12:07 Urine Color Yellow (Yellow) 10/08/22 10:50 Urine Appearance Cloudy (CLEAR) A 10/08/22 10:50 Urine pH 5 (5-7) 10/08/22 10:50 Ur Specific [place] 1.010 (1.005-1.030) 10/08/22 10:50 Urine Protein 1+ (Negative) H 10/08/22 10:50 Urine Glucose (UA) 4+ (Normal) H 10/08/22 10:50 Urine Ketones 1+ (Negative) H 10/08/22 10:50 Urine Blood 3+ (Negative) H 10/08/22 10:50 Urine Nitrate Positive (Negative) H 10/08/22 10:50 Urine Bilirubin Neg (Negative) 10/08/22 10:50 Urine Urobilinogen Norm mg/dL (Negative) 10/08/22 10:50 Ur Leukocyte Esterase 2+ (Negative) H 10/08/22 10:50 Urine RBC 5-10 /hpf (0-2) H 10/08/22 10:50 Urine WBC 55-80 /hpf (0-5) H 10/08/22 10:50 Ur Squamous Epith Cells 0-4 /hpf (0-5) H 10/08/22 10:50 Amorphous Sediment Not Reportable 10/08/22 10:50 Urine Bacteria 4+ /hpf (NONE) H 10/08/22 10:50 Urine Mucus 1+ /hpf 10/08/22 10:50 Vitals Last Vital Signs Temp 98.0 F 10/08/22 08:00 Pulse 81 10/08/22 16:00 Resp 17 10/08/22 16:00 BP 133/93 10/08/22 16:00 Pulse Ox 92 10/08/22 16:00 O2 Del Method Room Air 10/08/22 16:00 Discharge Plan Discharge Patient Disposition: Home Condition: Stable Prescriptions: New diltiazem HCl 240 mg Capsule,Extended Release 24hr 240 mg PO DAILY@10 Qty: 90 0RF cefdinir 300 mg capsule 300 mg PO BID 14 Days Qty: 28 0RF Continued (DME) Diabetic Shoes with 3 Pairs of Inserts See Rx Instructions .Route .MEDSUPPLY Qty: 1 0RF Rx Instructions: As directed by HOME (DME) Diabetic shoes with 3 sets of inserts See Rx Instructions .Route .MEDSUPPLY Qty: 1 0RF Rx Instructions: As directed by [facility] Lasix 20 mg tablet 20 mg PO QAM PRN (Reason: Edema) Qty: 30 2RF benzonatate 200 mg capsule 200 mg PO TID PRN (Reason: cough) Qty: 90 2RF loperamide [Anti-Diarrheal (loperamide)] 2 mg Tablet 2 - 4 mg PO BID PRN (Reason: Diarrhea) acetaminophen [Tylenol Extra Strength] 500 mg Tablet 1,000 mg PO BID@10,22 trolamine salicylate [Aspercreme] 10 % Cream 1 applic TOPICAL TID PRN (Reason: Pain) ascorbate calcium (vitamin C) 500 mg Tablet 1,000 mg PO BEDTIME@22 albuterol sulfate 90 mcg/actuation Hfa Aerosol Inhaler 2 puff INHALATION QID PRN (Reason: Shortness Of Breath) tizanidine 2 mg tablet 2 mg PO BEDTIME@22 doxepin 10 mg capsule 10 mg PO BEDTIME@22 gabapentin 300 mg capsule 300 mg PO BID@10,22 duloxetine 60 mg capsule,delayed release(DR/EC) 60 mg PO BID@10,22 Levemir FlexTouch U-100 Insuln 100 unit/mL (3 mL) insulin pen 60 unit SUBCUT BEDTIME@22 Xarelto 20 mg tablet 20 mg PO BEDTIME@22 nitroglycerin [Nitrostat] 0.4 mg Tablet, Sublingual 0.4 mg SUBLINGUAL Q5M PRN (Reason: Chest Pain) Rx Instructions: do not exceed 3 doses per episode levocetirizine 5 mg Tablet 5 mg PO BEDTIME@22 Discontinued diltiazem HCl [DILT-XR] 180 mg capsule,ext.rel 24h degradable 180 mg PO DAILY@10 Discharge Orders: Discharge Order (Routine); Ordered 10/08/22 Ordered By: Binu Interiano Referrals: Infectious Disease Group [facility] [Provider Group] - 2 weeks ([facility] Infectious Disease clinic has been contacted with you discharge information. The clinic will contact you to schedule this appointment. If you have not heard from them by morning. Please call ) UROLOGY [facility] [Provider Group] - 2 weeks (A referral will be sent to [facility] Urology clinic. If you have not from in a reasonable amount of time. Please call ) Ángel Vance FNP-C [Primary Care Provider] - 4-7 days ([facility] clinic has been contacted with your discharge information. The clinic will contact you to schedule an follow-up appointment. If you haven't heard from them by Friday afternoon. Please call ) Discharge Diet: Cardiac and Diabetic Discharge Activity: Increase activity as tolerated Patient Instructions: Diltiazem (By mouth), Cefdinir (By mouth), Atrial Flutter (DC), Urinary Tract Infection in Women (GEN), Kidney Infection (GEN), Electrophysiology Study (DC) Activity Restrictions/Additional Instructions: Continue to monitor blood pressures at home 3 times daily, write down values. Do not take Cardizem in case your blood pressure is lower than 90 top number (systolic) or 50 bottom number (diastolic). Please reschedule appointment with electrophysiology for reassessment and consideration of ablation as per prior planning. Please follow-up with urology with regards to your current urinary tract infection and kidney infection. Follow-up with your primary provider. Return to the hospital in case of worsening or new concerning symptoms, including any fever, abdominal or back pain, inability to urinate, blood in urine, or any return of persistently elevated heart rate, chest pain or pressure, or other concerns. Discharge Attestations Time Spent in Discharge Care*: greater than 30 min Quality Metrics Clinical Quality Measures [ No reported AMI, CVA or VTE this stay] Coding Level of Care Code 31323 Total time (in minutes) for Discharge: 55 Diagnoses Atrial flutter with rapid ventricular response I48.92 Goals of care, counseling/discussion Z71.89
== END 2022-10-08 18:09 | disposition home or self-care (01) ==
LOC: ER 13:28 → CSU 16:16
PROVIDERS: Admitting Provider Internal Medicine; Emergency Provider Family Medicine; PCP Nurse Practitioner; Visit Provider Internal Medicine
DX: I48.92 Unspecified atrial flutter (principal); I95.9 Hypotension, unspecified; Z79.01 Long term (current) use of anticoagulants; Z87.440 Personal history of urinary (tract) infections; F17.210 Nicotine dependence, cigarettes, uncomplicated; K21.9 Gastro-esophageal reflux disease without esophagitis; E11.65 Type 2 diabetes mellitus with hyperglycemia; Z79.84 Long term (current) use of oral hypoglycemic drugs; J44.9 Chronic obstructive pulmonary disease, unspecified; E78.5 Hyperlipidemia, unspecified
CPT/HCPCS: 36415; 36416; 71045; 74176; 80048; 80053; 81001; 82962; 83735; 84443; 84484; 85025; 87077; 87086; 87186; 93005; 93306; 96361; 96365; 96366; 96372; 96375; 99285; G0378; J0696; J1815; J3490; J7030; J8597

== ENCOUNTER 2022-10-14 15:02 | Inpatient (IN) | payer MEDICAID, SELFPAY ==
[2022-10-14] VITALS (8 sets, daily range): BP systolic 82–138; BP diastolic 56–104; PULSE 90–124; RESP 14–20; TEMP 36.6; O2SAT 97–99; BMI 36.9
--- NOTE | 2022-10-14 15:25 | ECG_ITS ---
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 Measurements Intervals [place] Rate: 98 P: 0 OK: 0 QRS: 22 QRSD: 114 T: 68 QT: 390 QTc: 498 Interpretive Statements ATRIAL FLUTTER MODERATE INTRAVENTRICULAR CONDUCTION DELAY [110+ ms QRS DURATION] Compared to ECG 10/07/2022 23:33:10 Intraventricular conduction delay now present ST (T wave) deviation now present Atrial abnormality no longer present Electronically Signed On 10-14-2022 21:04:23 CDT by Nan Coe M.D. [id number]
--- NOTE | 2022-10-14 15:54 | ED_ITS ---
HPI - Arrhythmia/Palpitations General: Chief Complaint: Arrhythmia/Palpitations Stated Complaint: weakness, hypotensive, tachy Time Seen by Provider: 10/14/22 15:12 Source: patient Mode of arrival: EMS History of Present Illness: 57-year-old female who presents emergency room with complaints of rapid heart rate. Patient previously had a known atrial fibrillation. She was admitted for that at the same time she had a cystitis. Medications were adjusted and she was discharged home she said since that time she almost continually had heart rates in the 1 25-1 30 range one-point as high as 135. She takes her diltiazem and he r Xarelto every morning regularly and she did take her regular dose of 240 mg of diltiazem today. Despite this when she went to her primary care doctor's office she was noted to have A-fib with RVR and was brought to the emergency room on arrival here her heart rate is well controlled in the 90s while she is sitting and resting her blood pressure was also stable EMS reported a heart rate in the 70s with a first seizure in the field and did have 1 blood pressure they measured that was hypotensive transiently as low as 70 but then resolved. MD complaint: rapid heart beat, heart racing and atrial fibrillation Onset (ago): week(s) Duration: intermittent Severity: mild Arrhythmia history: atrial fibrillation Associated symptoms: Deny anxiety, cough, diaphoresis, muscle cramps, nausea, paresthesias, pre-syncope, sense of impending doom, short of breath, syncope or vomiting Review of Systems Const: Denies: fever(s), chills, fatigue, malaise or diaphoresis ENMT: Denies: throat pain, ear or mastoid pain, nasal discharge or nasal congestion Card: Reports: chest pain, palpitations and irregular heart rhythm; Denies: edema, swelling of feet/ankles, syncope or pre-syncope Resp: Denies: dyspnea, productive cough or non-productive cough GI: Denies: abdominal pain, nausea or vomiting : Denies: flank pain, difficulty voiding, dysuria, urinary frequency or urinary urgency Musc: Denies: muscle cramps Skin/Breast: Denies: rash or pruritus Psych: Denies: anxiety [facility] ED PFSH: Medical History Asthma Atrial fibrillation Benign hypertension Breast cancer, left breast Breast cancer, right COPD (chronic obstructive pulmonary disease) COPD exacerbation Diabetes mellitus with hyperglycemia, with long-term current use of insulin Dyslipidemia Gastroesophageal reflux disease History of amputation of great toe Open wound of foot Right great toe Osteoarthritis of spine SVT (supraventricular tachycardia) Ulcer of foot, chronic Surgical History H/O bilateral mastectomy H/O esophagogastroduodenoscopy (10/19/21) History of appendectomy History of hysterectomy Status post left breast lumpectomy Status post right breast lumpectomy Family History Father CAD (coronary artery disease) CHF (congestive heart failure) Hyperlipidemia Hypertension Lung disease Stroke Other Diabetes Denies family history of Clotting disorder Dementia Psychiatric illness Chronic kidney disease (CKD) Suicide Anesthesia complication Bleeding disorder Family history of premature coronary artery disease Cancer Social History Smoking and tobacco status: current every day smoker cigarettes Packs smoked per day: 2 Second hand smoke exposure: Yes Smoking risk assessment/counseling performed?: Yes Alcohol intake: never Desire information about alcohol rehabilitation?: No Counseling given: No Substance/Drug Use: never Desire information about substance/drug rehabilitation?: No Counseling given: No Adopted: No Caregiver/support person: No Lives independently: Yes Household members: family Housing: House Marital status: Single Number of children: 1 service: No Current occupational status: employed Current gender identity: Female Physical Exam Const: GENERAL APPEARANCE: cooperative and comfortable ORIENTAT ION/CONSCIOUSNESS: Yes awake, Yes oriented to person, Yes oriented to place and Yes oriented to time HENMT: COMMON NORMALS: normocephalic, atraumatic and hearing grossly normal bilaterally HEAD & SCALP: normocephalic and atraumatic Resp: COMMON NORMALS: normal respiratory effort, No retractions, No use of accessory muscles and clear to auscultation bilaterally AUSCULTATION: clear to auscultation bilaterally Cardio: COMMON NORMALS: regular rate and No murmurs present (Cardio) RATE: regular rate RHYTHM: abnormal rhythm irregularly irregular GI: COMMON NORMALS: Soft to palpation and No hepatosplenomegaly present AUSCULTATION: Yes normoactive bowel sounds PALPATION: Yes Soft to palpation, No Tenderness to palpation present (GI), No Guarding due to palpation present (GI) and Yes No hepatosplenomegaly present : COMMON NORMALS: Yes no CVA tenderness BLADDER/KIDNEY EXAM: Yes no CVA tenderness Back/Pelvis: COMMON NORMALS: no CVA tenderness Extremity: COMMON NORMALS: normal to inspection, capillary refill normal, no clubbing, cyanosis or edema, no calf tenderness and no pedal edema Neuro: SENSORIUM/ORIENTATION: Yes oriented to person, Yes oriented to place and Yes oriented to time Skin: COMMON NORMALS: no rashes or lesions noted GENERAL SKIN EXAM: no rashes or lesions noted Course Vital Signs: Vital signs: Vital Signs Temperature 98.2 F 10/16/22 04:00 Pulse Rate 73 10/16/22 04:47 Respiratory Rate 16 10/16/22 04:30 Blood Pressure 112/64 10/16/22 04:00 Pulse Oximetry 94 10/16/22 04:30 Oxygen Delivery Me thod Room Air 10/16/22 04:30 MDM - Arrhythmia/Palpitations Medical Decision Making We had hoped to control the patient's rate and increase her medicine and discharge her home however Patient when standing becomes severely hypotensive and her A-fib rate markedly continued increases. At this point increasing her medicine is not an option because of her hypotension she will need to be admitted however her medications readjusted. Discussed with hospitalist orders written Differential Diagnosis Likely palpitations, sinus tachycardia, artial fibrillation and artial flutter Medical Records I reviewed the patient's medical records. Lab Data I reviewed the patient's lab results. 10/16/22 04:01 10/16/22 04:01 Radiology Impressions Chest X-Ray 10/14/22 18:06 IMPRESSION: Single-view chest is without acute cardiopulmonary abnormality. Laboratory Results WBC 10.0 10^3/uL (4.0-10.0) 10/14/22 15:45 RBC 5.18 10^6/uL (4.1-5.3) 10/14/22 15:45 Hgb 14.6 g/dL (11.5-15.3) 10/14/22 15:45 Hct 44.6 % (37.0-47.0) 10/14/22 15:45 MCV 86.1 fl (81-99) 10/14/22 15:45 MCH 28.2 pg (28.0-34.0) 10/14/22 15:45 MCHC 32.7 g/dL (30.0-36.0) 10/14/22 15:45 RDW 14.8 % (12.1-15.1) 10/14/22 15:45 Plt Count 367 10^3/cmm (130-400) 10/14/22 15:45 MPV 10.8 fL (7.4-10.4) H 10/14/22 15:45 Neut % (Auto) 53.2 % 10/14/22 15:45 Lymph % (Auto) 36.3 % 10/14/22 15:45 [place] % (Auto) 6.2 % 10/14/22 15:45 Eos % (Auto) 2.7 % 10/14/22 15:45 Baso % (Auto) 1.2 % 10/14/22 15:45 Neut # (Auto) 5.30 10^3/uL (1.8-7.7) 10/14/22 15:45 Lymph # (Auto) 3.6 10^3/uL (0.8-4.8) 10/14/22 15:45 [place] # (Auto) 0.6 10^3/uL (0.2-0.9) 10/14/22 15:45 Eos # (Auto) 0.3 10^3/uL (0.0-0.8) 10/14/22 15:45 Baso # (Auto) 0.1 10^3/uL (0.0-0.1) 10/14/22 15:45 Nucleated RBC % (auto) 0 % 10/14/22 15:45 Nucleated RBCs # 0.0 /100WBC 10/14/22 15:45 PT 14.30 SECONDS (12.1-14.9) 10/14/22 15:45 INR 1.07 (0.8-1.2) 10/14/22 15:45 Sodium 132 mmol/L (136-145) L 10/14/22 15:45 Potassium 5.1 mmol/L (3.5-5.1) 10/14/22 15:45 Chloride 96 mmol/L (98-107) L 10/14/22 15:45 Carbon Dioxide 28 mmol/L (22-29) 10/14/22 15:45 Anion Gap 13.1 (5-19) 10/14/22 15:45 BUN 14 mg/dL (6-20) 10/14/22 15:45 Creatinine 0.6 mg/dL (0.5-0.9) 10/14/22 15:45 GFR Calculation 102.7 mL/min (90-130) 10/14/22 15:45 Glucose 328 mg/dL (65-115) H 10/14/22 15:45 Calculated Osmolality 287 mOsm/kg (285-295) 10/14/22 15:45 Calcium 8.9 mg/dL (8.5-10.5) 10/14/22 15:45 Magnesium 1.8 mg/dL (1.7-2.3) 10/14/22 15:45 Total Bilirubin 0.3 mg/dL (0.15-1.2) 10/14/22 15:45 AST 7 U/L (0-32) 10/14/22 15:45 ALT 7 U/L (0-33) 10/14/22 15:45 Alkaline Phosphatase 103 U/L (35-105) 10/14/22 15:45 Troponin T Baseline 12 ng/L (0-10) H 10/14/22 15:45 Troponin T 120 Minute 11.03 ng/L (0-10) H 10/14/22 18:03 Delta Troponin T -0.97 ABS# (0-10) L 10/14/22 18:03 C-Reactive Protein 6.5 mg/L (0.0-4.9) H 10/14/22 15:45 NT-Pro-B Natriuret Pep 337 pg/mL (0-125) H 10/14/22 15:45 Total Protein 5.9 g/dL (6.6-8.7) L 10/14/22 15:45 Albumin 3.4 g/dL (3.5-5.2) L 10/14/22 15:45 Globulin 2.5 g/dL (1.3-4.6) 10/14/22 15:45 Procalcitonin 0.05 ng/mL (0-0.5) 10/14/22 15:45 TSH 2.04 uIU/mL (0.27-4.20) 10/14/22 15:48 Discharge Plan Discharge Patient Disposition: Admitted As Inpatient Admit Provider: Ji Chung Clinical Impression: Atrial flutter with rapid ventricular response, Diabetes mellitus with hyperglycemia, with long-term current use of insulin, Orthostatic hypotension Condition: Stable Coding Level of Care Code ED Pit Inspector for Briana Nj
[2022-10-14 16:04] LABS: Basophils # 0.1 10^3/uL (0.0-0.1); Basophils % 1.2 %; Eosinophils # 0.3 10^3/uL (0.0-0.8); Eosinophils % 2.7 %; Hematocrit 44.6 % (37.0-47.0); Hemoglobin 14.6 g/dL (11.5-15.3); Lymphocytes # 3.6 10^3/uL (0.8-4.8); Lymphocytes % 36.3 %; Mean Corpuscular HGB Conc 32.7 g/dL (30.0-36.0); Mean Corpuscular Hemoglobin 28.2 pg (28.0-34.0); Mean Corpuscular Volume 86.1 fl (81-99); Mean Platelet Volume 10.8 fL (7.4-10.4); Monocytes # 0.6 10^3/uL (0.2-0.9); Monocytes % 6.2 %; Neutrophils % 53.2 %; Nucleated Red Blood Cells % 0 %; Platelet Count 367 10^3/cmm (130-400); Red Blood Count 5.18 10^6/uL (4.1-5.3); Red Cell Distribution Width 14.8 % (12.1-15.1)
[2022-10-14 16:22] LABS: Troponin(5th) Baseline 12 ng/L (0-10)
[2022-10-14 16:33] LABS: Alanine Aminotransferase 7 U/L (0-33); Albumin Level 3.4 g/dL (3.5-5.2); Alkaline Phosphatase 103 U/L (35-105); Anion Gap 13.1 (5-19); Aspartate Amino Transferase 7 U/L (0-32); Blood Urea Nitrogen 14 mg/dL (6-20); Calcium 8.9 mg/dL (8.5-10.5); Carbon Dioxide 28 mmol/L (22-29); Chloride 96 mmol/L (98-107); Globulin 2.5 g/dL (1.3-4.6); Glomerular Filtration Rate 102.7 mL/min (90-130); Glucose 328 mg/dL (65-115); Magnesium 1.8 mg/dL (1.7-2.3); Osmolality Calculated 287 mOsm/kg (285-295); Potassium 5.1 mmol/L (3.5-5.1); Sodium 132 mmol/L (136-145); Total Bilirubin 0.3 mg/dL (0.15-1.2); Total Protein 5.9 g/dL (6.6-8.7)
--- NOTE | 2022-10-14 16:52 | PC.NURSE ---
to room to give ambulation trial per md's request. upon sitting pt up, she states she feels very dizzy. at this time, elected to do orthostatic vital signs. pt has positive tilt. pt extremely unsteady while standing. pt returned to bed after assessment without incident. md notified of findings.
--- NOTE | 2022-10-14 17:13 | ECG_ITS ---
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 Measurements Intervals [place] Rate: 111 P: 0 [place]: 0 QRS: -27 QRSD: 126 T: 35 QT: 332 QTc: 453 Interpretive Statements ATRIAL FLUTTER WITH RAPID VENTRICULAR RESPONSE BORDERLINE LEFT AXIS DEVIATION [QRS AXIS < -20] MODERATE INTRAVENTRICULAR CONDUCTION DELAY [110+ ms QRS DURATION] NONSPECIFIC ST ELEVATION [0.05+ mV ST ELEVATION] ABNORMAL RHYTHM ECG Compared to ECG 10/14/2022 15:25:54 Myocardial infarct finding no longer present ST (T wave) deviation still present Electronically Signed On 10-14-2022 21:23:13 CDT by Nan Coe M.D. [id number]
--- NOTE | 2022-10-14 18:02 | P.HP_ITS ---
Providers/Chief Complaint Primary Care Provider: Ángel Vance, SMIT[facility] Chief Complaint: weakness, hypotensive, tachy History of Present Illness Soni Head is a 57 year old female with a past medical of insulin- dependent type 2 diabetes mellitus, atrial fibrillation, on Xarelto presents to [facility] due to chest pain palpitations. Patient tells me that when she got home from work hospital discharge she continued to have chest palpitations, she dealt with it, she did not want to come back to the hospital she had persistent chest palpitations shortness of breath intermittent chest pain. Today she felt weak, continues to have episodes of chest palpitations so she came to the emergency room for evaluation in the ER she was found to have A- fib with RVR, heart rates in the 120s, currently A-fib with RVR rates in the 120s, blood pressure 138/88, she is saturating 99 on room air, alert and oriented x3, following all commands,, she tells me that she has been cardioverted by Dr. Valladares in the past, for a month, she went back to A-fib, does report continued smoking, advised that she is compliant with Cardizem, and Xarelto Review of Systems Const: Denies: fever(s) or chills Eyes: Denies: change in vision ENMT: Denies: throat pain Card: Reports: chest pain, palpitations, irregular heart rhythm and dyspnea on exertion Resp: Reports: dyspnea GI: Denies: abdominal pain : Denies: flank pain Musc: Denies: neck pain or back pain Skin/Breast: Denies: rash Neuro: Denies: headache(s) Medications/Allergies Home Medications Medication Instructions Recorded Confirmed Last Taken Type acetaminophen 500 mg tablet 1,000 mg PO BID@06/29/20 10/14/22 10/07/22 10:00 History (Tylenol Extra Strength) loperamide 2 mg tablet 2 - 4 mg PO BID PRN Diarrhea 06/29/20 10/14/22 Unknown History (Anti-Diarrheal (loperamide)) nitroglycerin 0.4 mg sublingual 0.4 mg sublingual Q5M PRN Chest 06/18/21 10/14/22 10/07/22 History tablet (Nitrostat) Pain trolamine salicylate 10 % topical 1 applic topical TID PRN Pain 07/09/21 10/14/22 10/18/21 History cream (Aspercreme) Diabetic Shoes with 3 Pairs of #1 ea 02/25/22 10/14/22 Unknown Rx Inserts furosemide 20 mg tablet (Lasix) 20 mg PO QAM PRN Edema #30 tabs 04/29/22 10/14/22 Unknown Rx Diabetic shoes with 3 sets of #1 ea 05/22/22 10/14/22 Unknown Rx inserts benzonatate 200 mg capsule 200 mg PO TID PRN cough #90 caps 06/07/22 10/14/22 Unknown Rx levocetirizine 5 mg tablet 5 mg PO BEDTIME@06/28/22 10/14/22 10/13/22 History albuterol sulfate 90 mcg/actuation 2 puff inhalation QID PRN 10/07/22 10/14/22 Unknown History aerosol inhaler Shortness Of Breath ascorbate calcium (vitamin C) 500 1,000 mg PO BEDTIME@10/07/22 10/14/22 10/13/22 History mg tablet doxepin 10 mg capsule 10 mg PO BEDTIME@10/07/22 10/14/22 10/13/22 History duloxetine 60 mg capsule,delayed 60 mg PO BID@,10/07/22 10/14/22 10/14/22 History release gabapentin 300 mg capsule 300 mg PO BID@10,10/07/22 10/14/22 10/14/22 History insulin detemir U-100 100 unit/mL 60 unit SUBCUT BEDTIME@10/07/22 10/14/22 10/13/22 History (3 mL) subcutaneous pen (Levemir FlexTouch U-100 Insulin) rivaroxaban 20 mg tablet (Xarelto) 20 mg PO BEDTIME@10/07/22 10/14/22 10/13/22 History tizanidine 2 mg tablet 2 mg PO BEDTIME@10/07/22 10/14/22 10/13/22 History cefdinir 300 mg capsule 300 mg PO BID 14 days #28 caps 10/08/22 10/14/22 10/14/22 Rx diltiazem HCl 240 mg 240 mg PO DAILY@10 #90 caps 10/08/22 10/14/22 10/14/22 Rx capsule,extended release 24 hr Allergies Allergy/AdvReac Type Severity Reaction Status Date / Time azithromycin [From Zithromax] Allergy Unknown ADR-Gastrointestinal Verified 10/14/22 15:10 Upset sulfamethoxazole Allergy Unknown ADR-Gastrointestinal Verified 10/14/22 15:10 [From Bactrim] Upset trimethoprim [From Bactrim] Allergy Unknown ADR-Gastrointestinal Verified 10/14/22 15:10 Upset PFSH Acute PFSH: Medical History Asthma Atrial fibrillation Benign hypertension Breast cancer, left breast Breast cancer, right COPD (chronic obstructive pulmonary disease) COPD exacerbation Diabetes mellitus with hyperglycemia, with long-term current use of insulin Dyslipidemia Gastroesophageal reflux disease History of amputation of great toe Open wound of foot Right great toe Osteoarthritis of spine SVT (supraventricular tachycardia) Ulcer of foot, chronic Surgical History H/O bilateral mastectomy H/O esophagogastroduodenoscopy (10/19/21) History of appendectomy History of hysterectomy Status post left breast lumpectomy Status post right breast lumpectomy Family History Father CAD (coronary artery disease) CHF (congestive heart failure) Hyperlipidemia Hypertension Lung disease Stroke Other Diabetes Denies family history of Clotting disorder Dementia Psychiatric illness Chronic kidney disease (CKD) Suicide Anesthesia complication Bleeding disorder Family history of premature coronary artery disease Cancer Social History Smoking and tobacco status: current every day smoker cigarettes Packs smoked per day: 2 Second hand smoke exposure: Yes Smoking risk assessment/counseling performed?: Yes Alcohol intake: never Desire information about alcohol rehabilitation?: No Counseling given: No Substance/Drug Use: never Desire information about substance/drug rehabilitation?: No Counseling given: No Adopted: No Caregiver/support person: No Lives independently: Yes Household members: family Housing: House Marital status: Single Number of children: 1 service: No Current occupational status: employed Current gender identity: Female Vitals/I&O/Wt Last Vital Signs Temp 97.9 F 10/14/22 15:03 Pulse 90 10/14/22 16:52 Resp 16 10/14/22 15:55 BP 138/88 10/14/22 16:52 Pulse Ox 99 10/14/22 15:55 O2 Del Method Room Air 10/14/22 15:55 Weight last 48 hrs Weight 107.048 kg Physical Exam Const: COMMON NORMALS: no acute distress and patient oriented x3 HENMT: COMMON NORMALS: normocephalic HEAD & SCALP: normocephalic Eye: COMMON NORMALS: Equal, round and reactive pupils present and EOMs intact bilaterally Neck/C-Spine: COMMON NORMALS: no JVD Lymph: LYMPHATIC: no lymphadenopathy noted Chest: COMMONS NORMALS: normal inspection of the chest Resp: COMMON NORMALS: normal respiratory effort, No retractions, No use of accessory muscles and clear to auscultation bilaterally AUSCULTATION: clear to auscultation bilaterally Cardio: COMMON NORMALS: no JVD, S1 normal heart sound present and S2 normal heart sound present RATE: tachycardic RHYTHM: abnormal rhythm irregularly irregular HEART SOUNDS: S1 normal heart sound present and S2 normal heart sound present GI: COMMON NORMALS: Normal to inspection, nondistended, normoactive bowel sounds present, Soft to palpation and non-tender PALPATION: Yes Soft to palpation : COMMON NORMALS: Yes no CVA tenderness Extremity: COMMON NORMALS: no pedal edema Neuro: COMMON NORMALS: patient oriented x3, CN's II-XII intact bilaterally and moves all extremities Psych: COMMON NORMALS: mental status grossly normal Data 10/14/22 15:45 10/14/22 15:45 A&P Assessment and plan (1) Atrial flutter with rapid ventricular response: (2) COPD (chronic obstructive pulmonary disease): Qualifiers: COPD type: unspecified COPD Qualified Code(s): J44.9 - Chronic obstructive pulmonary disease, unspecified (3) Current smoker: (4) Diabetes mellitus with hyperglycemia, with long-term current use of insulin: (5) Goals of care, counseling/discussion: (6) Encounter for smoking cessation counseling: Plan A-fib with RVR Plan -Admit to cardiac stepdown unit. ? Start Cardizem drip. ? Start Cardizem 60 every 6h. ? Replete magnesium. ? Monitor heart rates closely. Chest pain. ? Serial EKGs, circumflex, telemetry monitoring. ? Aspirin, statin, is on Xarelto. ? Monitor for chest pain. Type 2 diabetes mellitus. ? Patient confirms that she uses Levemir 60 units at bedtime, no hypoglycemic events. ?, Low-dose sliding scale. Goals of care discussion, patient wants to be a full code however she does not want to be intubated for a prolonged period of time, Xarelto for DVT prophylaxis Attestations Medical Necessity Statement*: Patient requires hospitalization, inpatient, greater than 2 midnights, for A-fib with RVR and chest pain Diagnoses Atrial flutter with rapid ventricular response I48.92 COPD (chronic obstructive pulmonary disease) J44.9 COPD type: unspecified COPD Current smoker F17.200 Diabetes mellitus with hyperglycemia, with long-term current use of insulin E11.65; Z79.4 Goals of care, counseling/discussion Z71.89 Encounter for smoking cessation counseling Z71.6
--- NOTE | 2022-10-14 18:06 | XRR_ITS ---
PROCEDURE INFORMATION: Exam: XR Chest Exam date and time: 10/14/2022 6:21 PM Age: 57 years old Clinical indication: Pain; Chest pressure; Additional info: SOB TECHNIQUE: Imaging protocol: Radiologic exam of the chest. Views: 1 view. COMPARISON: CR XR chest 1V portable [id number] 10/07/2022 12:12 PM FINDINGS: Tubes, catheters and devices: Overlying monitor leads. Lungs: Unremarkable. No consolidation. Very small calcified granuloma upper left lung. Pleural spaces: Unremarkable. No pleural effusion. No pneumothorax. Heart/Mediastinum: Cardiac silhouette is upper limits of normal with single-view exam. Bones/joints: Unremarkable. Soft tissues: Surgical clips right axillary region. Other findings: No significant change with prior exam. XR/XR chest 1V portable [id number] IMPRESSION: Single-view chest is without acute cardiopulmonary abnormality.
[2022-10-14 18:33] LABS: INR 1.07 (0.8-1.2)
[2022-10-14 18:35] LABS: NT Pro B Type Natriuretic Pept 337 pg/mL (0-125); Procalcitonin 0.05 ng/mL (0-0.5)
[2022-10-14 18:40] LABS: Troponin 5 2HR 11.03 ng/L (0-10)
[2022-10-14 18:41] LABS: Troponin 5 2HR Delta -0.97 ABS# (0-10)
[2022-10-14 18:46] LABS: C Reactive Protein 6.5 mg/L (0.0-4.9)
[2022-10-14 19:48] LABS: Thyroid Stimulating Hormone 2.04 uIU/mL (0.27-4.20)
[2022-10-14] MEDS: dilTIAZem 60 mg Tablet PO (19:50)
[2022-10-14] MEDS: magnesium lactate 84 mg Tablet PO (19:50)
[2022-10-14] MEDS: aspirin 81 mg EC Tablet PO (19:50)
[2022-10-14] MEDS: pantoprazole 40 mg SDV IVP (19:51)
--- NOTE | 2022-10-14 21:13 | ECG_ITS ---
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 Measurements Intervals [place] Rate: 87 P: 0 [place]: 0 QRS: 51 QRSD: 124 T: 81 QT: 402 QTc: 485 Interpretive Statements ATRIAL FLUTTER MODERATE INTRAVENTRICULAR CONDUCTION DELAY [110+ ms QRS DURATION] Compared to ECG 10/14/2022 17:23:05 ST (T wave) deviation no longer present Electronically Signed On 10-15-2022 17:42:54 CDT by Santo Hinojosa M.D. [id number]
[2022-10-14] MEDS: gabapentin 300 mg Capsule PO (21:27)
[2022-10-14] MEDS: tizanidine 4 mg Tablet 2 MG PO (21:28)
[2022-10-14] MEDS: rivaroxaban 10 mg Tablet 20 MG PO (21:28)
[2022-10-14] MEDS: doxepin 10 mg Capsule PO (21:28)
[2022-10-14] MEDS: insulin glargine 100 units/1 mL 60 UNIT SUBCUT (21:28)
[2022-10-14] MEDS: duloxetine 60 mg Capsule PO (21:28)
[2022-10-14 21:32] LABS: Glucose Point of Care 327 mg/dL (70-110)
[2022-10-14] MEDS: ascorbic acid 500 mg Tablet 1000 MG PO (23:20)
[2022-10-14 23:46] LABS: Troponin 5 6HR 10.67 ng/L (0-10)
[2022-10-14 23:47] LABS: Troponin 5 6HR Delta -1.33 ng/L (0-12)
[2022-10-15] VITALS (12 sets, daily range): BP systolic 104–126; BP diastolic 64–78; PULSE 77–112; RESP 12–96; TEMP 36.6–36.9; O2SAT 92–97
[2022-10-15] MEDS: dilTIAZem 60 mg Tablet PO ×5 (01:04→23:58)
[2022-10-15 04:48] LABS: Basophils # 0.1 10^3/uL (0.0-0.1); Basophils % 0.8 %; Eosinophils # 0.3 10^3/uL (0.0-0.8); Eosinophils % 3.2 %; Hematocrit 44.4 % (37.0-47.0); Hemoglobin 14.6 g/dL (11.5-15.3); Lymphocytes # 3.9 10^3/uL (0.8-4.8); Lymphocytes % 40.1 %; Mean Corpuscular HGB Conc 32.9 g/dL (30.0-36.0); Mean Corpuscular Hemoglobin 28.4 pg (28.0-34.0); Mean Corpuscular Volume 86.4 fl (81-99); Mean Platelet Volume 10.8 fL (7.4-10.4); Monocytes # 0.6 10^3/uL (0.2-0.9); Monocytes % 6.4 %; Neutrophils # 4.74 10^3/uL (1.8-7.7); Neutrophils % 49.3 %; Nucleated Red Blood Cells % 0 %; Platelet Count 361 10^3/cmm (130-400); Red Blood Count 5.14 10^6/uL (4.1-5.3); White Blood Count 9.6 10^3/uL (4.0-10.0)
[2022-10-15 05:23] LABS: Alanine Aminotransferase 8 U/L (0-33); Albumin Level 3.4 g/dL (3.5-5.2); Alkaline Phosphatase 97 U/L (35-105); Aspartate Amino Transferase 10 U/L (0-32); Blood Urea Nitrogen 13 mg/dL (6-20); Calcium 8.9 mg/dL (8.5-10.5); Carbon Dioxide 29 mmol/L (22-29); Chloride 100 mmol/L (98-107); Globulin 2.5 g/dL (1.3-4.6); Glomerular Filtration Rate 102.7 mL/min (90-130); Glucose 299 mg/dL (65-115); Osmolality Calculated 299 mOsm/kg (285-295); Phosphorus 4.1 mg/dL (2.5-4.5); Sodium 139 mmol/L (136-145); Total Bilirubin 0.3 mg/dL (0.15-1.2); Total Protein 5.9 g/dL (6.6-8.7)
[2022-10-15 05:24] LABS: Anion Gap 14.8 (5-19); Potassium 4.8 mmol/L (3.5-5.1)
[2022-10-15 06:05] LABS: Glucose Point of Care 328 mg/dL (70-110)
[2022-10-15] MEDS: magnesium lactate 84 mg Tablet PO ×2 (09:21→18:33)
[2022-10-15] MEDS: aspirin 81 mg EC Tablet PO (09:21)
[2022-10-15] MEDS: insulin lispro 100 unit/1 mL SUBCUT ×3 (09:21→18:33)
[2022-10-15] MEDS: gabapentin 300 mg Capsule PO ×2 (09:21→20:56)
[2022-10-15] MEDS: duloxetine 60 mg Capsule PO ×2 (09:21→20:55)
[2022-10-15] MEDS: metoprolol tartrate 25 mg Tablet PO ×2 (11:33→20:55)
[2022-10-15 11:35] LABS: Glucose Point of Care 290 mg/dL (70-110)
[2022-10-15] MEDS: acetaminophen 325 mg Tablet 650 MG PO (12:48)
--- NOTE | 2022-10-15 16:26 | PM.PN ---
Subjective Subjective: Patient was seen this morning, she does report chest palpitations with exertion, no shortness of breath, no headache, blurry vision Vitals/I&O/Wt Last Vital Signs Temp 98 F 10/15/22 08:00 Pulse 89 10/15/22 14:00 Resp 19 H 10/15/22 12:00 BP 121/73 10/15/22 08:00 Pulse Ox 94 10/15/22 12:00 O2 Del Method Room Air 10/15/22 12:00 10/15/22 10/15/22 10/15/22 06:59 14:59 22:59 Intake Total 0 / 0 118 / 118 Balance 0 / 0 118 / 118 Weight last 48 hrs Weight 107.048 kg Physical Exam Const: COMMON NORMALS: no acute distress and patient oriented x3 Resp: COMMON NORMALS: normal respiratory effort, No retractions, No use of accessory muscles and clear to auscultation bilaterally AUSCULTATION: clear to auscultation bilaterally Cardio: COMMON NORMALS: S1 normal heart sound present and S2 normal heart sound present RATE: tachycardic RHYTHM: abnormal rhythm HEART SOUNDS: S1 normal heart sound present and S2 normal heart sound present GI: COMMON NORMALS: Normal to inspection, nondistended, normoactive bowel sounds present and non-tender Extremity: COMMON NORMALS: no pedal edema Neuro: COMMON NORMALS: patient oriented x3 Psych: COMMON NORMALS: mental status grossly normal Data 10/15/22 04:37 10/15/22 04:37 A&P Assessment and plan (1) Atrial flutter with rapid ventricular response: (2) COPD (chronic obstructive pulmonary disease): Qualifiers: COPD type: unspecified COPD Qualified Code(s): J44.9 - Chronic obstructive pulmonary disease, unspecified (3) Current smoker: (4) Diabetes mellitus with hyperglycemia, with long-term current use of insulin: (5) Goals of care, counseling/discussion: (6) Encounter for smoking cessation counseling: Plan A-fib with RVR Plan -Admit to cardiac stepdown unit. ? Start metoprolol 25 twice daily ? Start Cardizem 60 every 6h. ? Monitor magnesium ? Monitor heart rates closely. Chest pain. ? Serial EKGs, circumflex, telemetry monitoring. ? Aspirin, statin, is on Xarelto. ? Monitor for chest pain. Type 2 diabetes mellitus. ? Patient confirms that she uses Levemir 60 units at bedtime, no hypoglycemic events. ?, Low-dose sliding scale. Goals of care discussion, patient wants to be a full code however she does not want to be intubated for a prolonged period of time, Xarelto for DVT prophylaxis Attestations Medical Necessity Statement*: Patient requires hospitalization for A-fib with RVR, increasing heart rate with exertion, plan for today is to titrate metoprolol, continue Cardizem, up out of bed, monitor for chest pain Diagnoses Atrial flutter with rapid ventricular response I48.92 COPD (chronic obstructive pulmonary disease) J44.9 COPD type: unspecified COPD Current smoker F17.200 Diabetes mellitus with hyperglycemia, with long-term current use of insulin E11.65; Z79.4 Goals of care, counseling/discussion Z71.89 Encounter for smoking cessation counseling Z71.6
[2022-10-15 17:23] LABS: Glucose Point of Care 292 mg/dL (70-110)
[2022-10-15] MEDS: pantoprazole 40 mg SDV IVP (18:33)
--- NOTE | 2022-10-15 19:43 | PC.NURSE ---
Patient is s/p C with right radial access. Dressing in place to right wrist remains c,d,i with no s/s of bleeding or hematoma formation observed. Patient does have bruising with skin tear to right hand stating, I did that at home. Patient reports it feels ok right now. MD is aware of this and has looked at site. Instructed patient on site care and restrictions. Patient verbalized complete understanding. Will continue to monitor.
[2022-10-15] MEDS: atorvastatin 40 mg Tablet PO (20:55)
[2022-10-15] MEDS: rivaroxaban 10 mg Tablet 20 MG PO (20:55)
[2022-10-15] MEDS: doxepin 10 mg Capsule PO (20:55)
[2022-10-15] MEDS: insulin glargine 100 units/1 mL 60 UNIT SUBCUT (20:56)
[2022-10-15] MEDS: ascorbic acid 500 mg Tablet 1000 MG PO (20:56)
[2022-10-15] MEDS: tizanidine 4 mg Tablet 2 MG PO (20:56)
[2022-10-15 21:50] LABS: Glucose Point of Care 275 mg/dL (70-110)
[2022-10-16] VITALS (8 sets, daily range): BP systolic 112–124; BP diastolic 64–84; PULSE 61–81; RESP 14–18; TEMP 36.7–36.8; O2SAT 94–97
[2022-10-16 05:17] LABS: Basophils # 0.1 10^3/uL (0.0-0.1); Basophils % 0.7 %; Eosinophils # 0.3 10^3/uL (0.0-0.8); Eosinophils % 2.8 %; Hematocrit 41.2 % (37.0-47.0); Hemoglobin 13.1 g/dL (11.5-15.3); Lymphocytes # 4.3 10^3/uL (0.8-4.8); Lymphocytes % 44.5 %; Mean Corpuscular HGB Conc 31.8 g/dL (30.0-36.0); Mean Corpuscular Hemoglobin 27.3 pg (28.0-34.0); Mean Platelet Volume 11.4 fL (7.4-10.4); Monocytes # 0.7 10^3/uL (0.2-0.9); Monocytes % 6.8 %; Neutrophils # 4.33 10^3/uL (1.8-7.7); Neutrophils % 44.7 %; Nucleated Red Blood Cells % 0 %; Platelet Count 359 10^3/cmm (130-400); Red Blood Count 4.79 10^6/uL (4.1-5.3); Red Cell Distribution Width 14.9 % (12.1-15.1); White Blood Count 9.7 10^3/uL (4.0-10.0)
[2022-10-16 05:49] LABS: Alanine Aminotransferase 8 U/L (0-33); Albumin Level 3.3 g/dL (3.5-5.2); Alkaline Phosphatase 88 U/L (35-105); Anion Gap 12.5 (5-19); Aspartate Amino Transferase 9 U/L (0-32); Blood Urea Nitrogen 15 mg/dL (6-20); Carbon Dioxide 28 mmol/L (22-29); Chloride 101 mmol/L (98-107); Globulin 2.4 g/dL (1.3-4.6); Glomerular Filtration Rate 126.7 mL/min (90-130); Glucose 252 mg/dL (65-115); Magnesium 1.9 mg/dL (1.7-2.3); Osmolality Calculated 293 mOsm/kg (285-295); Phosphorus 3.9 mg/dL (2.5-4.5); Potassium 4.5 mmol/L (3.5-5.1); Sodium 137 mmol/L (136-145); Total Bilirubin 0.3 mg/dL (0.15-1.2); Total Protein 5.7 g/dL (6.6-8.7)
[2022-10-16] MEDS: dilTIAZem 60 mg Tablet PO ×2 (05:59→12:08)
[2022-10-16 06:16] LABS: Glucose Point of Care 238 mg/dL (70-110)
[2022-10-16] MEDS: magnesium lactate 84 mg Tablet PO (09:07)
[2022-10-16] MEDS: aspirin 81 mg EC Tablet PO (09:07)
[2022-10-16] MEDS: gabapentin 300 mg Capsule PO (09:07)
[2022-10-16] MEDS: duloxetine 60 mg Capsule PO (09:07)
[2022-10-16] MEDS: metoprolol tartrate 25 mg Tablet PO (09:08)
[2022-10-16] MEDS: insulin lispro 100 unit/1 mL SUBCUT ×2 (09:08→12:09)
[2022-10-16 11:08] LABS: Glucose Point of Care 285 mg/dL (70-110)
--- NOTE | 2022-10-16 11:39 | PM.DCS ---
Discharge Providers Date of Admission: 10/14/22 19:05 Date of Discharge: October 16, 2022 Attending Provider at Admission: Ji Chnug MD Attending Provider at Discharge: Ji Chung MD Primary Care Provider: RICHARD Flores Diagnoses at Discharge Discharge Diagnosis (1) Atrial flutter with rapid ventricular response: Status: Acute (2) COPD (chronic obstructive pulmonary disease): Status: Chronic Qualifiers: COPD type: unspecified COPD Qualified Code(s): J44.9 - Chronic obstructive pulmonary disease, unspecified (3) Current smoker: Status: Chronic (4) Diabetes mellitus with hyperglycemia, with long-term current use of insulin: Status: Chronic (5) Goals of care, counseling/discussion: Status: Acute (6) Encounter for smoking cessation counseling: Status: Acute Reason for Visit Reason for Visit: weakness, hypotensive, tachy Hospital Course Hospital Course Soni eHad is a 57 year old female with a past medical of insulin-dependent type 2 diabetes mellitus, atrial fibrillation, on Xarelto presents to [facility] due to chest pain palpitations.? Patient tells me that when she got home from work hospital discharge she continued to have chest palpitations, she dealt with it, she did not want to come back to the hospital she had persistent chest palpitations shortness of breath intermittent chest pain.? Today she felt weak, continues to have episodes of chest palpitations so she came to the emergency room for evaluation in the ER she was found to have A-fib with RVR, heart rates in the 120s, currently A-fib with RVR rates in the 120s, blood pressure 138/88, she is saturating 99 on room air, alert and oriented x3, following all commands,, she tells me that she has been cardioverted by Dr. Valladares in the past, for a month, she went back to A-fib, does report continued smoking, advised that she is compliant with Cardizem, and Xarelto Patient was admitted to [facility] for A-fib with RVR, chest pain, managed with Cardizem, and the addition of metoprolol, clinically monitored. Overall patient's atrial fibrillation became well controlled with Cardizem 240 once daily with the addition of metoprolol 25 twice daily. Patient was advised to follow-up with cardiology as outpatient if she were to have any recurrent chest pain to come back to the emergency room Physical Exam Const: COMMON NORMALS: no acute distress and patient oriented x3 Resp: COMMON NORMALS: normal respiratory effort, No retractions, No use of accessory muscles and clear to auscultation bilaterally AUSCULTATION: clear to auscultation bilaterally Cardio: COMMON NORMALS: regular rate, regular rhythm, S1 normal heart sound present and S2 normal heart sound present RATE: regular rate RHYTHM: regular rhythm HEART SOUNDS: S1 normal heart sound present and S2 normal heart sound present GI: COMMON NORMALS: Normal to inspection, nondistended, normoactive bowel sounds present and non-tender Extremity: COMMON NORMALS: no pedal edema Neuro: COMMON NORMALS: patient oriented x3 Psych: COMMON NORMALS: mental status grossly normal Discharge Data Studies Completed and Pending Completed Studies During Hospitalization Category Date Time Status XR chest 1V portable [id number] Stat Exams 10/14/22 18:06 Completed Pending at discharge Category Date Time Status Complete Blood Count w/Auto AM LABS Lab 10/17/22 04:00 Ordered Comprehensive Metabolic Panel AM LABS Lab 10/17/22 04:00 Ordered Magnesium AM LABS Lab 10/17/22 04:00 Ordered Phosphorus AM LABS Lab 10/17/22 04:00 Ordered Radiology Impressions Chest X-Ray 10/14/22 18:06 IMPRESSION: Single-view chest is without acute cardiopulmonary abnormality. Laboratory Results WBC 9.7 10^3/uL (4.0-10.0) 10/16/22 04:01 RBC 4.79 10^6/uL (4.1-5.3) 10/16/22 04:01 Hgb 13.1 g/dL (11.5-15.3) 10/16/22 04:01 Hct 41.2 % (37.0-47.0) 10/16/22 04:01 MCV 86.0 fl (81-99) 10/16/22 04:01 MCH 27.3 pg (28.0-34.0) L 10/16/22 04:01 MCHC 31.8 g/dL (30.0-36.0) 10/16/22 04:01 RDW 14.9 % (12.1-15.1) 10/16/22 04:01 Plt Count 359 10^3/cmm (130-400) 10/16/22 04:01 MPV 11.4 fL (7.4-10.4) H 10/16/22 04:01 Neut % (Auto) 44.7 % 10/16/22 04:01 Lymph % (Auto) 44.5 % 10/16/22 04:01 [place] % (Auto) 6.8 % 10/16/22 04:01 Eos % (Auto) 2.8 % 10/16/22 04:01 Baso % (Auto) 0.7 % 10/16/22 04:01 Neut # (Auto) 4.33 10^3/uL (1.8-7.7) 10/16/22 04:01 Lymph # (Auto) 4.3 10^3/uL (0.8-4.8) 10/16/22 04:01 [place] # (Auto) 0.7 10^3/uL (0.2-0.9) 10/16/22 04:01 Eos # (Auto) 0.3 10^3/uL (0.0-0.8) 10/16/22 04:01 Baso # (Auto) 0.1 10^3/uL (0.0-0.1) 10/16/22 04:01 Nucleated RBC % (auto) 0 % 10/16/22 04:01 Nucleated RBCs # 0.0 /100WBC 10/16/22 04:01 PT 14.30 SECONDS (12.1-14.9) 10/14/22 15:45 INR 1.07 (0.8-1.2) 10/14/22 15:45 Sodium 137 mmol/L (136-145) 10/16/22 04:01 Potassium 4.5 mmol/L (3.5-5.1) 10/16/22 04:01 Chloride 101 mmol/L (98-107) 10/16/22 04:01 Carbon Dioxide 28 mmol/L (22-29) 10/16/22 04:01 Anion Gap 12.5 (5-19) 10/16/22 04:01 BUN 15 mg/dL (6-20) 10/16/22 04:01 Creatinine 0.5 mg/dL (0.5-0.9) 10/16/22 04:01 GFR Calculation 126.7 mL/min (90-130) 10/16/22 04:01 Glucose 252 mg/dL (65-115) H 10/16/22 04:01 POC Glucose 285 mg/dL (70-110) H 10/16/22 11:05 Calculated Osmolality 293 mOsm/kg (285-295) 10/16/22 04:01 Calcium 9.0 mg/dL (8.5-10.5) 10/16/22 04:01 Phosphorus 3.9 mg/dL (2.5-4.5) 10/16/22 04:01 Magnesium 1.9 mg/dL (1.7-2.3) 10/16/22 04:01 Total Bilirubin 0.3 mg/dL (0.15-1.2) 10/16/22 04:01 AST 9 U/L (0-32) 10/16/22 04:01 ALT 8 U/L (0-33) 10/16/22 04:01 Alkaline Phosphatase 88 U/L (35-105) 10/16/22 04:01 Troponin T Baseline 12 ng/L (0-10) H 10/14/22 15:45 Troponin T 120 Minute 11.03 ng/L (0-10) H 10/14/22 18:03 Delta Troponin T -0.97 ABS# (0-10) L 10/14/22 18:03 Troponin T Hi Sens 6Hr 10.67 ng/L (0-10) H 10/14/22 23:00 Troponin T Hi Sens 6Hr Delta -1.33 ng/L (0-12) L 10/14/22 23:00 C-Reactive Protein 6.5 mg/L (0.0-4.9) H 10/14/22 15:45 NT-Pro-B Natriuret Pep 337 pg/mL (0-125) H 10/14/22 15:45 Total Protein 5.7 g/dL (6.6-8.7) L 10/16/22 04:01 Albumin 3.3 g/dL (3.5-5.2) L 10/16/22 04:01 Globulin 2.4 g/dL (1.3-4.6) 10/16/22 04:01 Procalcitonin 0.05 ng/mL (0-0.5) 10/14/22 15:45 TSH 2.04 uIU/mL (0.27-4.20) 10/14/22 15:48 Vitals Last Vital Signs Temp 98.0 F 10/16/22 08:00 Pulse 79 10/16/22 11:13 Resp 17 10/16/22 11:13 BP 120/73 10/16/22 11:13 Pulse Ox 95 10/16/22 11:13 O2 Del Method Room Air 10/16/22 11:13 Discharge Plan Discharge Patient Disposition: Home Condition: Stable Prescriptions: New metoprolol tartrate 25 mg Tablet 25 mg PO Q12H 30 Days Qty: 60 0RF Magtab 84 mg Tablet Extended Release 84 mg PO Q24H 30 Days Qty: 30 0RF Continued (DME) Diabetic Shoes with 3 Pairs of Inserts See Rx Instructions .Route .MEDSUPPLY Qty: 1 0RF Rx Instructions: As directed by HOME (DME) Diabetic shoes with 3 sets of inserts See Rx Instructions .Route .MEDSUPPLY Qty: 1 0RF Rx Instructions: As directed by [facility] Lasix 20 mg tablet 20 mg PO QAM PRN (Reason: Edema) Qty: 30 2RF benzonatate 200 mg capsule 200 mg PO TID PRN (Reason: cough) Qty: 90 2RF loperamide [Anti-Diarrheal (loperamide)] 2 mg Tablet 2 - 4 mg PO BID PRN (Reason: Diarrhea) acetaminophen [Tylenol Extra Strength] 500 mg Tablet 1,000 mg PO BID@10,22 trolamine salicylate [Aspercreme] 10 % Cream 1 applic TOPICAL TID PRN (Reason: Pain) ascorbate calcium (vitamin C) 500 mg Tablet 1,000 mg PO BEDTIME@22 albuterol sulfate 90 mcg/actuation Hfa Aerosol Inhaler 2 puff INHALATION QID PRN (Reason: Shortness Of Breath) tizanidine 2 mg tablet 2 mg PO BEDTIME@22 doxepin 10 mg capsule 10 mg PO BEDTIME@22 gabapentin 300 mg capsule 300 mg PO BID@10,22 duloxetine 60 mg capsule,delayed release(DR/EC) 60 mg PO BID@10,22 Levemir FlexTouch U-100 Insuln 100 unit/mL (3 mL) insulin pen 60 unit SUBCUT BEDTIME@22 Xarelto 20 mg tablet 20 mg PO BEDTIME@22 diltiazem HCl 240 mg Capsule,Extended Release 24hr 240 mg PO DAILY@10 Qty: 90 0RF cefdinir 300 mg capsule 300 mg PO BID 14 Days Qty: 28 0RF nitroglycerin [Nitrostat] 0.4 mg Tablet, Sublingual 0.4 mg SUBLINGUAL Q5M PRN (Reason: Chest Pain) Rx Instructions: do not exceed 3 doses per episode levocetirizine 5 mg Tablet 5 mg PO BEDTIME@22 Discharge Orders: Discharge Order (Routine); Ordered 10/16/22 Ordered By: Ji Chung Referrals: Theodora Valladares MD [Physician] - 10/29/22 12:45 pm (This appointment will be with Dr. Andersen. ) Cristina Canela FNP-C [Nurse Practitioner] - 10/22/22 11:00 am Discharge Diet: Cardiac Discharge Activity: Resume usual activity Patient Instructions: Metoprolol (By mouth) (Lopressor, Toprol XL), Atrial Flutter (DC), Hypotension (DC), Chest Pain Stoplight, Opioid Safety Activity Restrictions/Additional Instructions: - Complete antibiotics for UTI -Metoprolol 25 mg twice daily for atrial fibrillation -If you feel lightheaded or dizzy you can decrease to 12.5 mg twice a day -See cardiology in 1 week Discharge Attestations Time Spent in Discharge Care*: greater than 30 min Quality Metrics Clinical Quality Measures [ No reported AMI, CVA or VTE this stay] Coding Level of Care Code 47834 Total time (in minutes) for Discharge: 45 Diagnoses Atrial flutter with rapid ventricular response I48.92 COPD (chronic obstructive pulmonary disease) J44.9 COPD type: unspecified COPD Current smoker F17.200 Diabetes mellitus with hyperglycemia, with long-term current use of insulin E11.65; Z79.4 Goals of care, counseling/discussion Z71.89 Encounter for smoking cessation counseling Z71.6
[2022-10-16] MEDS: cefdinir 300 MG CAPSULE PO (12:08)
--- NOTE | 2022-10-16 13:03 | PC.NURSE ---
Discharge Note Patient discharged to [home] via [POV] accompanied by [family]. Discharge instructions reviewed with patient and/or strategic partnership representative. Mobile pharmacy medications and/or prescriptions provided. Belongings/home medications returned.
== END 2022-10-16 13:25 | disposition home or self-care (01) | DRG 310 ==
LOC: ER 17:16 → CSU 19:41
PROVIDERS: Admitting Provider Family Medicine; Emergency Provider Family Medicine; PCP Nurse Practitioner; Visit Provider Family Medicine
DX: I48.91 Unspecified atrial fibrillation (principal); E11.65 Type 2 diabetes mellitus with hyperglycemia; Z79.51 Long term (current) use of inhaled steroids; Z79.01 Long term (current) use of anticoagulants; I10 Essential (primary) hypertension; Z85.3 Personal history of malignant neoplasm of breast; J44.9 Chronic obstructive pulmonary disease, unspecified; E78.5 Hyperlipidemia, unspecified; K21.9 Gastro-esophageal reflux disease without esophagitis; Z89.411 Acquired absence of right great toe; Z90.13 Acquired absence of bilateral breasts and nipples; F17.210 Nicotine dependence, cigarettes, uncomplicated
CPT/HCPCS: 36415; 36416; 71045; 80053; 82962; 83735; 83880; 84100; 84145; 84443; 84484; 85025; 85610; 86140; 93005; 94664; 96372; 96376; 99285; C9113; J1815

== ENCOUNTER → 2022-10-24 08:57 | Outpatient (BNVA) | payer MEDICAID, SELFPAY | PROVIDERS: PCP Nurse Practitioner; Visit Provider Student in an Organized Health Care Education/Training Program | DX: N30.20 Other chronic cystitis without hematuria (principal); R82.71 Bacteriuria | CPT/HCPCS: 99205 ==

== ENCOUNTER → 2022-10-28 11:05 | Outpatient (BNVA) | payer MEDICAID, SELFPAY | PROVIDERS: PCP Nurse Practitioner; Visit Provider Podiatrist Foot & Ankle Surgery | DX: E11.610 Type 2 diabetes mellitus with diabetic neuropathic arthropathy; E11.42 Type 2 diabetes mellitus with diabetic polyneuropathy; M21.41 Flat foot [pes planus] (acquired), right foot; M21.42 Flat foot [pes planus] (acquired), left foot; Z79.4 Long term (current) use of insulin | CPT/HCPCS: 73630; 99214 ==

== ENCOUNTER → 2022-10-29 09:56 | Outpatient (BNVA) | payer MEDICAID, SELFPAY | PROVIDERS: PCP Nurse Practitioner; Visit Provider Orthopaedic Surgery | DX: M47.12 Other spondylosis with myelopathy, cervical region | CPT/HCPCS: 99214 ==

== ENCOUNTER → 2022-11-19 11:39 | Outpatient (BNVA) | payer MEDICAID, SELFPAY | PROVIDERS: PCP Nurse Practitioner; Visit Provider Nurse Practitioner Family | DX: E11.65 Type 2 diabetes mellitus with hyperglycemia (principal); Z79.4 Long term (current) use of insulin | CPT/HCPCS: 80053; 80061; 83036; 84443; 85025 ==

== ENCOUNTER 2022-12-09 11:34 | Inpatient (IN) | payer MEDICAID, SELFPAY ==
[2022-12-09] VITALS (31 sets, daily range): BP systolic 100–156; BP diastolic 69–101; PULSE 0–134; RESP 16–22; TEMP 36.8–37.7; O2SAT 90–100; BMI 37.5
--- NOTE | 2022-12-09 11:45 | ED_ITS ---
HPI - Weakness General: Chief complaint: Weakness Stated complaint: weakness x4 days Time Seen by Provider: 12/09/22 11:40 History of Present Illness: 57 years old female with complex medical history including diabetes, hypertension, atrial fibrillation, COPD, breast cancer, hyperglycemia and GERD. Patient presents emergency room via EMS from a local clinic due to generalized weakness, nausea and vomiting that started on Friday. Patient further reveals having multiple episode of nausea and vomiting on Friday and Friday and stabbing diarrhea yesterday. She describes diarrhea as loose stool without any blood or dark stool. No sick contacts or foreign travel. She also reveals cough and describes her cough as nonproductive at this time. No chest pain, shortness of breath, fever or chills. Upon present emergency room, patient appeared to be awake alert without any acute distress. She was found to have heart rate of 133 on the monitor. Associated symptoms: Reports nausea and vomiting; Denies chills, diaphoresis or fever(s) Review of Systems Const: Reports: fatigue and malaise; Denies: fever(s), chills, diaphoresis, change in sleep pattern or daytime sleepiness Resp: Reports: non-productive cough; Denies: wheezing, stridor, pain on inspiration, change in phlegm color, hemoptysis or chest congestion GI: Reports: nausea, vomiting and diarrhea; Denies: dysphagia, heartburn, constipation, bloating, GI cramping, belching, excessive flatus, fecal incontinence, change in bowel habits or pain on defecation : Reports: flank pain and urinary frequency; Denies: urinary hesitancy, nocturia, urinary incontinence, hematuria, genital lesions, genital pruritis, vaginal odor, vaginal bleeding or dysmenorrhea Musc: Denies: neck pain, back pain, extremity pain, extremity swelling, joint pain, joint swelling or joint redness PFS ED PFSH: Medical History Asthma Atrial fibrillation Benign hypertension Breast cancer, left breast Breast cancer, right COPD (chronic obstructive pulmonary disease) COPD exacerbation Diabetes mellitus with hyperglycemia, with long-term current use of insulin Dyslipidemia Gastroesophageal reflux disease History of amputation of great toe Open wound of foot Right great toe Osteoarthritis of spine SVT (supraventricular tachycardia) Ulcer of foot, chronic Surgical History H/O bilateral mastectomy H/O esophagogastroduodenoscopy (10/19/21) History of appendectomy History of hysterectomy Status post left breast lumpectomy Status post right breast lumpectomy Family History Father CAD (coronary artery disease) CHF (congestive heart failure) Hyperlipidemia Hypertension Lung disease Stroke Other Diabetes Denies family history of Clotting disorder Dementia Psychiatric illness Chronic kidney disease (CKD) Suicide Anesthesia complication Bleeding disorder Family history of premature coronary artery disease Cancer Social History Smoking and tobacco status: current every day smoker cigarettes Packs smoked per day: 2 Second hand smoke exposure: Yes Smoking risk assessment/counseling performed?: Yes Alcohol intake: never Desire information about alcohol rehabilitation?: No Counseling given: No Substance/Drug Use: never Desire information about substance/drug rehabilitation?: No Counseling given: No Adopted: No Caregiver/support person: No Lives independently: Yes Household members: family Housing: House Marital status: Single Number of children: 1 service: No Current occupational status: employed Current gender identity: Female Physical Exam Const: COMMON NORMALS: no acute distress, average body habitus, patient oriented x3, no limitations, healthy appearing, alert and well nourished HENMT: COMMON NORMALS: normocephalic, atraumatic, hearing grossly normal bilaterally, external ears normal, EAC's normal, TM's normal bilaterally, Normal external nose present, Normal nasal mucous membranes and turbinates present, mo ist oral mucous membranes, oropharynx normal, dentition normal and gingiva normal HEAD & SCALP: normocephalic and atraumatic NOSE: Normal external nose present and Normal nasal mucous membranes and turbinates present EXTERNAL EAR: Yes external ears normal EXTERNAL AUDITORY CANAL: EAC's normal TYMPANIC MEMBRANE: TM's normal bilaterally Chest: COMMONS NORMALS: normal inspection of the chest, normal palpation of entire chest wall, normal inspection of the breasts and normal palpation of the breasts Breast/axilla inspection: Yes normal inspection of the breasts BREAST/AXILLA PALPATION: Yes normal palpation of the breasts Resp: COMMON NORMALS: normal respiratory effort, No retractions, No use of acc essory muscles, clear to auscultation bilaterally and percussion normal AUSCULTATION: clear to auscultation bilaterally PERCUSSION: percussion normal Cardio: COMMON NORMALS: S1 normal heart sound present and S2 normal heart sound present PALPATION: normal PMI RATE: tachycardic RHYTHM: abnormal rhythm HEART SOUNDS: S1 normal heart sound present and S2 normal heart sound present GI: COMMON NORMALS: Normal to inspection, nondistended, normoactive bowel sounds present, Soft to palpation, non-tender, No hepatosplenomegaly present, no masses and no bruits PALPATION: Yes Soft to palpation and Yes No hep atosplenomegaly present Extremity: COMMON NORMALS: normal to inspection, full ROM, capillary refill normal, no joint enlargement, no clubbing, cyanosis or edema, no calf tenderness and no pedal edema Neuro: COMMON NORMALS: patient oriented x3 SENSORIUM/ORIENTATION: Yes alert Course Vital Signs: Vital signs: Vital Signs Temperature 100.0 F H 12/10/22 16:00 Pulse Rate 116 H 12/10/22 16:00 Respiratory Rate 18 12/10/22 16:00 Blood Pressure 123/76 12/10/22 16:00 Pulse Oximetry 90 12/10/22 16:00 Oxygen Delivery Me thod Nasal Cannula 12/10/22 11:39 Oxygen Flow Rate 3 12/10/22 08:00 MDM - Weakness Medical Decision Making Patient made comfortable emergency room and had extensive cardiac work-up done. Patient was given IV fluid IV antibiotics and started on amiodarone drip for rate control. Julita patient with family and hospitalist. Will admit patient for further evaluation and treatment. Differential Diagnosis Likely acute myocardial infarction, anemia, hypoglycemia, hypothyroidism, rhabdomyolysis, sepsis and dehydration Lab Data 12/10/22 04:28 12/10/22 04:28 Radiology Impressions Abdomen/Pelvis CT 12/09/22 17:03 IMPRESSION: 1. There is bilateral pyelonephritis, worse on the left. 2. 3 mm calculus in the mid to distal left ureter with mild obstructive changes. ADDENDUM: 12/09/221923 CRITICAL RESULT: The study was personally discussed on the telephone with Evelina Rubalcava on 12/09/2022 7:22 PM CDT. The results were understood and acknowledged. Laboratory Results WBC 19.12 10^3/uL (3.29-11.43) H 12/09/22 11:52 RBC 4.51 10^6/uL (3.85-5.65) 12/09/22 11:52 Hgb 12.70 g/dL (11.27-16.99) 12/09/22 11:52 Hct 38.2 % (36-47) 12/09/22 11:52 MCV 84.7 fl (85-98) L 12/09/22 11:52 MCH 28.2 pg (27-33) 12/09/22 11:52 MCHC 33.2 g/dL (30-55) 12/09/22 11:52 RDW 14.3 % (12.1-15.1) 12/09/22 11:52 Plt Count 188 10^3/cmm (157-399) 12/09/22 11:52 MPV 11.4 fL (7.4-10.4) H 12/09/22 11:52 Neut % (Auto) 85.9 % 12/09/22 11:52 Lymph % (Auto) 4.6 % 12/09/22 11:52 [place] % (Auto) 7.0 % 12/09/22 11:52 Eos % (Auto) 1.2 % 12/09/22 11:52 Baso % (Auto) 0.4 % 12/09/22 11:52 Neut # (Auto) 16.46 10^3/uL (1.8-7.7) H 12/09/22 11:52 Lymph # (Auto) 0.9 10^3/uL (0.8-4.8) 12/09/22 11:52 [place] # (Auto) 1.3 10^3/uL (0.2-0.9) H 12/09/22 11:52 Eos # (Auto) 0.2 10^3/uL (0.0-0.8) 12/09/22 11:52 Baso # (Auto) 0.1 10^3/uL (0.0-0.1) 12/09/22 11:52 Nucleated RBC % (auto) 0 % 12/09/22 11:52 Nucleated RBCs # 0.0 /100WBC 12/09/22 11:52 Sodium 123 mmol/L (136-145) L 12/09/22 11:52 Potassium 4.3 mmol/L (3.5-5.1) 12/09/22 11:52 Chloride 87 mmol/L (98-107) L 12/09/22 11:52 Carbon Dioxide 27 mmol/L (22-29) 12/09/22 11:52 Anion Gap 13.3 (5-19) 12/09/22 11:52 BUN 35 mg/dL (6-20) H 12/09/22 11:52 Creatinine 1.1 mg/dL (0.5-0.9) H 12/09/22 11:52 GFR Calculation 51.0 mL/min (90-130) L 12/09/22 11:52 Glucose 401 mg/dL (65-115) H 12/09/22 11:52 Calculated Osmolality 281 mOsm/kg (285-295) L 12/09/22 11:52 Lactic Acid 1.6 mmol/L (0.5-2.2) 12/09/22 11:52 Calcium 8.0 mg/dL (8.5-10.5) L 12/09/22 11:52 Magnesium 2.1 mg/dL (1.7-2.3) 12/09/22 11:52 Total Bilirubin 0.7 mg/dL (0.15-1.2) 12/09/22 11:52 AST 6 U/L (0-32) 12/09/22 11:52 ALT < 5 U/L (0-33) 12/09/22 11:52 Alkaline Phosphatase 116 U/L (35-105) H 12/09/22 11:52 Troponin T Gen 5 ng/L 8 ng/L (0-10) 12/09/22 11:52 Total Protein 5.4 g/dL (6.6-8.7) L 12/09/22 11:52 Albumin 2.6 g/dL (3.5-5.2) L 12/09/22 11:52 Globulin 2.8 g/dL (1.3-4.6) 12/09/22 11:52 Urine Color Yellow (Yellow) 12/09/22 12:58 Urine Appearance Cloudy (CLEAR) A 12/09/22 12:58 Urine pH 5 (5-7) 12/09/22 12:58 Ur Specific [place] 1.015 (1.005-1.030) 12/09/22 12:58 Urine Protein 1+ (Negative) H 12/09/22 12:58 Urine Glucose (UA) 4+ (Normal) H 12/09/22 12:58 Urine Ketones 1+ (Negative) H 12/09/22 12:58 Urine Blood 3+ (Negative) H 12/09/22 12:58 Urine Nitrate Negative (Negative) 12/09/22 12:58 Urine Bilirubin Neg (Negative) 12/09/22 12:58 Urine Urobilinogen 4 mg/dL (Negative) H 12/09/22 12:58 Ur Leukocyte Esterase 2+ (Negative) H 12/09/22 12:58 Urine RBC 10-15 /hpf (0-2) H 12/09/22 12:58 Urine WBC 15-25 /hpf (0-5) H 12/09/22 12:58 Ur Squamous Epith Cells 5-10 /hpf (0-5) H 12/09/22 12:58 Amorphous Sediment Not Reportable 12/09/22 12:58 Urine Bacteria 3+ /hpf (NONE) H 12/09/22 12:58 XR interpretation done by ED provider, pending radiology final review Critical Care Time Critical Care Time: Critical Care Time: Yes Total Critical Care Time: 45 Attestation: Time spent reevaluate patient on multiple occasions. Time spent to review past medical history and current medication list. Time spent discussing patient with family. Spent discussing patient with hospitalist. Discharge Plan Discharge Patient Disposition: Admitted As Inpatient Admit Provider: Ji Chung Clinical Impression: Arrhythmia, Leukocytosis, UTI (urinary tract infection) Condition: Stable Coding Level of Care Code ED Live In Housekeeper for Briana N[place]
--- NOTE | 2022-12-09 11:56 | ECG_ITS ---
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 Measurements Intervals [place] Rate: 131 P: 0 NC: 0 QRS: 35 QRSD: 110 T: 27 QT: 286 QTc: 423 Interpretive Statements ATRIAL FLUTTER/TACHYCARDIA WITH RAPID VENTRICULAR RESPONSE LOW QRS VOLTAGE IN EXTREMITY LEADS [QRS DEFLECTION < 0.5 mV IN LIMB LEADS] ST DEPRESSION, CONSIDER SUBENDOCARDIAL INJURY [0.1+ mV ST DEPRESSION] Compared to ECG 10/14/2022 23:57:29 Low QRS voltage now present ST (T wave) deviation now present Intraventricular conduction delay no longer present Electronically Signed On 12-09-2022 21:29:55 CDT by Nan Coe M.D. [id number]
[2022-12-09 12:04] LABS: Basophils # 0.1 10^3/uL (0.0-0.1); Basophils % 0.4 %; Eosinophils # 0.2 10^3/uL (0.0-0.8); Eosinophils % 1.2 %; Hematocrit 38.2 % (36-47); Lymphocytes # 0.9 10^3/uL (0.8-4.8); Lymphocytes % 4.6 %; Mean Corpuscular HGB Conc 33.2 g/dL (30-55); Mean Corpuscular Hemoglobin 28.2 pg (27-33); Mean Corpuscular Volume 84.7 fl (85-98); Mean Platelet Volume 11.4 fL (7.4-10.4); Monocytes # 1.3 10^3/uL (0.2-0.9); Neutrophils # 16.46 10^3/uL (1.8-7.7); Neutrophils % 85.9 %; Nucleated Red Blood Cells % 0 %; Platelet Count 188 10^3/cmm (157-399); Red Blood Count 4.51 10^6/uL (3.85-5.65); Red Cell Distribution Width 14.3 % (12.1-15.1); White Blood Count 19.12 10^3/uL (3.29-11.43)
[2022-12-09] MEDS: ondansetron 2 mg/ML SDV 2 mL 4 MG IVP (12:06)
[2022-12-09] MEDS: sodium chloride 0.9% 1,000 ML 999 ML IV ×2 (12:06→13:36)
[2022-12-09] MEDS: dilTIAZem 5 mg/mL SDV 5 mL 20 MG IVP (12:13)
[2022-12-09 12:19] LABS: Troponin T (5th) Once 8 ng/L (0-10)
[2022-12-09 12:28] LABS: Alanine Aminotransferase < 5 U/L (0-33); Albumin Level 2.6 g/dL (3.5-5.2); Alkaline Phosphatase 116 U/L (35-105); Anion Gap 13.3 (5-19); Aspartate Amino Transferase 6 U/L (0-32); Blood Urea Nitrogen 35 mg/dL (6-20); Carbon Dioxide 27 mmol/L (22-29); Chloride 87 mmol/L (98-107); Globulin 2.8 g/dL (1.3-4.6); Glucose 401 mg/dL (65-115); Magnesium 2.1 mg/dL (1.7-2.3); Osmolality Calculated 281 mOsm/kg (285-295); Potassium 4.3 mmol/L (3.5-5.1); Sodium 123 mmol/L (136-145); Total Bilirubin 0.7 mg/dL (0.15-1.2); Total Protein 5.4 g/dL (6.6-8.7)
--- NOTE | 2022-12-09 13:16 | PC.PHAR ---
Addendum entered by Geovanna Chiu 12/09/22 13:16: pt states she has been taking benzonatate 200mg bid for a while wxt med history shows last filled 09/26/22 30d/s 200mg tid prn Original Note: pt states she takes care of her own medications-pt states she is not taking trulicity states its not covered by her insurance
[2022-12-09 13:22] LABS: Bilirubin Urine Neg (Negative); Blood Urine 3+ (Negative); Glucose Urine UA 4+ (Normal); Ketones Urine 1+ (Negative); Nitrate Urine Negative (Negative); Protein Urine 1+ (Negative); Specific Gravity, Urine 1.015 (1.005-1.030); Urine Appearance Cloudy (CLEAR); Urine Color Yellow (Yellow); Urobilinogen Urine 4 mg/dL (Negative); pH Urine 5 (5-7)
[2022-12-09 13:23] LABS: Add Urine Culture? Yes; Add Urine Microscopic? YES; Bacteria Urine 3+ /hpf; Leukocyte Esterase Urine 2+ (Negative); WBC Urine 15-25 /hpf (0-5)
[2022-12-09] MEDS: cefTRIAXone 1,000 MG in sodium chloride 0.9% (plus) 50 ML 100 MG IV (14:10)
[2022-12-09 14:27] LABS: Lactic Sepsis W/Reflex 1.6 mmol/L (0.5-2.2)
--- NOTE | 2022-12-09 15:35 | ECG_ITS ---
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 Measurements Intervals [place] Rate: 129 P: 0 [place]: 0 QRS: 58 QRSD: 106 T: 25 QT: 290 QTc: 426 Interpretive Statements ATRIAL FLUTTER/TACHYCARDIA WITH RAPID VENTRICULAR RESPONSE LOW QRS VOLTAGE IN EXTREMITY LEADS [QRS DEFLECTION < 0.5 mV IN LIMB LEADS] ST DEPRESSION, CONSIDER SUBENDOCARDIAL INJURY [0.1+ mV ST DEPRESSION] Compared to ECG 12/09/2022 11:56:38 No significant changes Electronically Signed On 12-09-2022 21:16:49 CDT by Nan Coe M.D. [id number]
[2022-12-09] MEDS: amiodarone 50 mg/mL SDV 3 mL 150 MG IVP (15:57)
--- NOTE | 2022-12-09 17:03 | CTR_ITS ---
PROCEDURE INFORMATION: Exam: CT Abdomen And Pelvis With Contrast Exam date and time: 12/09/2022 5:47 PM Age: 57 years old Clinical indication: Abdominal pain; Generalized; Prior surgery; Surgery date: 6+ months; Surgery type: Appy, hyst; Additional info: Left flank pain TECHNIQUE: Imaging protocol: Computed tomography of the abdomen and pelvis with contrast. Radiation optimization: All CT scans at this facility use at least one of these dose optimization techniques: automated exposure control; mA and/or kV adjustment per patient size (includes targeted exams where dose is matched to clinical indication); or iterative reconstruction. Contrast material: OMNI 350; Contrast volume: 100 ml; Contrast route: INTRAVENOUS (IV); REPORTING DATA: Count of CT and Cardiac NM exams in prior 12 months: This patient has received 7 known CTs and 0 known cardiac nuclear medicine studies in the 12 months prior to the current study. COMPARISON: CT kidney stone [id number] 10/08/2022 1:52 PM RADIATION DOSE METRICS: Total DLP (mGy-cm): 1147 FINDINGS: Lungs: Incidental benign calcified granuloma at the right lung base. Diaphragm: Small hiatal hernia. Liver: There is a 10 mm well-circumscribed low-density lesion in the right hepatic lobe with benign features. Follow-up is not necessary. No mass. Gallbladder and bile ducts: There is sludge and/or small stones in the gallbladder. Pancreas: Normal. No ductal dilation. Spleen: The spleen is mildly enlarged measuring 14.3 cm. Adrenal glands: Normal. No mass. Kidneys and ureters: There is a 3 mm calculus in the mid to distal left ureter. Mild left hydronephrosis/hydroureter. Moderate left perinephric stranding. There are small foci of air in the upper and lower pole calices of the left kidney. Heterogeneous enhancement of the left kidney is consistent with pyelonephritis. Right kidney is malrotated. There is mild patchy hypoenhancement of the right kidney associated with mild right perinephric stranding consistent with pyelonephritis. Stomach and bowel: Unremarkable. No obstruction. No mucosal thickening. Appendix: No evidence of appendicitis. Intraperitoneal space: Unremarkable. No free air. No significant fluid collection. Vasculature: Unremarkable. No abdominal aortic aneurysm. Lymph nodes: Unremarkable. No enlarged lymph nodes. Urinary bladder: Bladder is partially obscured by artifact. There is air in the bladder. Reproductive: Unremarkable as visualized. Bones/joints: Degenerative changes are present in the visualized spine. Soft tissues: Unremarkable. CT/CT abdomen pelvis w con* [id number] IMPRESSION: 1. There is bilateral pyelonephritis, worse on the left. 2. 3 mm calculus in the mid to distal left ureter with mild obstructive changes.
--- NOTE | 2022-12-09 17:10 | ECG_ITS ---
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 Measurements Intervals [place] Rate: 125 P: 0 RI: 0 QRS: 2 QRSD: 104 T: 87 QT: 299 QTc: 432 Interpretive Statements ATRIAL FLUTTER WITH RAPID VENTRICULAR RESPONSE LOW QRS VOLTAGE IN EXTREMITY LEADS [QRS DEFLECTION < 0.5 mV IN LIMB LEADS] POSSIBLE INFERIOR MYOCARDIAL INFARCTION , OF INDETERMINATE AGE [30 ms Q WAVE IN II/aVF] Compared to ECG 12/09/2022 14:21:52 Myocardial infarct finding now present ST (T wave) deviation no longer present Electronically Signed On 12-09-2022 21:14:19 CDT by Nan Coe M.D. [id number]
--- NOTE | 2022-12-09 17:12 | P.HP_ITS ---
Providers/Chief Complaint Admitting Physician: Ji Chung MD Primary Care Provider: Ángel Vance, GASTROENTEROLOGY TEACHER-C Chief Complaint: weakness x4 days History of Present Illness Soni Head is a 57 year old female with a past medical history of atrial fibrillation on Eliquis, type 2 diabetes mellitus, chronic Foot pain, Charcot foot, polyneuropathy, currently in a cam boot who presents [facility] as she has been not feeling well for the last few days, nausea, vomiting, poor appetite, she tells me for the last 72 hours overall she has been able to consume is water and Sprite, she reports left flank pain, with dysuria, with nausea, denies any diarrhea, in the emergency room, she was diagnosed with UTI, white blood cell count 19,000, start Rocephin, A-fib with RVR, started on amiodarone drip Review of Systems Const: Denies: fever(s) or chills Eyes: Denies: change in vision ENMT: Denies: throat pain Card: Reports: palpitations; Denies: chest pain Resp: Reports: dyspnea GI: Reports: abdominal pain, nausea and vomiting : Denies: flank pain Musc: Denies: neck pain Skin/Breast: Denies: rash Neuro: Denies: headache(s) Medications/Allergies Home Medications Medication Instructions Recorded Confirmed Last Taken Type acetaminophen 500 mg tablet 1,000 mg PO BID@10,06/29/20 12/09/22 12/08/22 History (Tylenol Extra Strength) loperamide 2 mg tablet 2 - 4 mg PO BID PRN Diarrhea 06/29/20 12/09/22 Unknown History (Anti-Diarrheal (loperamide)) nitroglycerin 0.4 mg sublingual 0.4 mg sublingual Q5M PRN Chest 06/18/21 12/09/22 10/07/22 History tablet (Nitrostat) Pain trolamine salicylate 10 % topical 1 applic topical TID PRN Pain 07/09/21 12/09/22 10/18/21 History cream (Aspercreme) Diabetic Shoes with 3 Pairs of #1 ea 02/25/22 12/09/22 Unknown Rx Inserts furosemide 20 mg tablet (Lasix) 20 mg PO QAM PRN Edema #30 tabs 04/29/22 12/09/22 Unknown Rx Diabetic shoes with 3 sets of #1 ea 05/22/22 12/09/22 Unknown Rx inserts levocetirizine 5 mg tablet 5 mg PO BEDTIME@22 06/28/22 12/09/22 12/08/22 History albuterol sulfate 90 mcg/actuation 2 puff inhalation QID PRN 10/07/22 12/09/22 Unknown History aerosol inhaler Shortness Of Breath diltiazem HCl 240 mg 240 mg PO DAILY@10 #90 caps 10/08/22 12/09/22 12/08/22 Rx capsule,extended release 24 hr 12 pairs of diabetic socks #1 ea 10/29/22 12/09/22 Unknown Rx metoprolol tartrate 25 mg tablet 25 mg PO Q12H #180 tabs 11/12/22 12/09/22 12/08/22 Rx Diabetic Shoes with 3 pairs of #1 ea 11/26/22 12/09/22 Unknown Rx inserts- build up to the right blood sugar diagnostic (Blood #100 ea 11/27/22 12/09/22 Unknown Rx Glucose Test strips) blood-glucose meter #1 ea 11/27/22 12/09/22 Unknown Rx doxepin 10 mg capsule 10 mg PO BEDTIME@22 #30 caps 11/27/22 12/09/22 12/08/22 Rx dulaglutide 0.75 mg/0.5 mL 0.75 mg (0.5 mL) SUBCUT .weekly #1 11/27/22 12/09/22 Unknown Rx subcutaneous pen injector mL (Trulicity) gabapentin 300 mg capsule 300 mg PO BID@ #60 caps 11/27/22 12/09/22 12/08/22 Rx insulin detemir U-100 100 unit/mL 60 unit (0.6 mL) SUBCUT BEDTIME@22 11/27/22 12/09/22 12/08/22 Rx (3 mL) subcutaneous pen #18 mL lancets #100 ea 11/27/22 12/09/22 Unknown Rx rivaroxaban 20 mg tablet (Xarelto) 20 mg PO BEDTIME@22 #30 tabs 11/27/22 12/09/22 12/08/22 Rx tizanidine 2 mg tablet 2 mg PO BEDTIME@22 #30 tabs 0912/09/22 12/08/22 Rx duloxetine 60 mg capsule,delayed 60 mg PO BID@ #60 caps 11/29/22 12/09/22 12/09/22 Rx release ascorbate calcium (vitamin C) 500 1,000 mg PO BEDTIME 12/09/22 12/09/22 12/08/22 History mg tablet atorvastatin 20 mg tablet 20 mg PO BEDTIME@12/09/22 12/09/22 12/08/22 History benzonatate 200 mg capsule 200 mg PO BID 12/09/22 12/09/22 12/08/22 History see pharmacy comment Allergies Allergy/AdvReac Type Severity Reaction Status Date / Time azithromycin [From Zithromax] Allergy Unknown ADR-Gastrointestinal Verified 11/27/22 10:58 Upset sulfamethoxazole Allergy Unknown ADR-Gastrointestinal Verified 11/27/22 10:58 [From Bactrim] Upset trimethoprim [From Bactrim] Allergy Unknown ADR-Gastrointestinal Verified 11/27/22 10:58 Upset PFSH Acute PFSH: Medical History Asthma Atrial fibrillation Benign hypertension Breast cancer, left breast Breast cancer, right COPD (chronic obstructive pulmonary disease) COPD exacerbation Diabetes mellitus with hyperglycemia, with long-term current use of insulin Dyslipidemia Gastroesophageal reflux disease History of amputation of great toe Open wound of foot Right great toe Osteoarthritis of spine SVT (supraventricular tachycardia) Ulcer of foot, chronic Surgical History H/O bilateral mastectomy H/O esophagogastroduodenoscopy (10/19/21) History of appendectomy History of hysterectomy Status post left breast lumpectomy Status post right breast lumpectomy Family History Father CAD (coronary artery disease) CHF (congestive heart failure) Hyperlipidemia Hypertension Lung disease Stroke Other Diabetes Denies family history of Clotting disorder Dementia Psychiatric illness Chronic kidney disease (CKD) Suicide Anesthesia complication Bleeding disorder Family history of premature coronary artery disease Cancer Social History Smoking and tobacco status: current every day smoker cigarettes Packs smoked per day: 2 Second hand smoke exposure: Yes Smoking risk assessment/counseling performed?: Yes Alcohol intake: never Desire information about alcohol rehabilitation?: No Counseling given: No Substance/Drug Use: never Desire information about substance/drug rehabilitation?: No Counseling given: No Adopted: No Caregiver/support person: No Lives independently: Yes Household members: family Housing: House Marital status: Single Number of children: 1 service: No Current occupational status: employed Current gender identity: Female Vitals/I&O/Wt Last Vital Signs Temp 98.2 F 12/09/22 11:54 Pulse 115 H 12/09/22 16:30 Resp 22 H 12/09/22 16:30 BP 124/83 12/09/22 16:30 Pulse Ox 95 12/09/22 16:30 O2 Del Method Nasal Cannula 12/09/22 11:54 12/09/22 12/09/22 12/09/22 06:59 14:59 22:59 Intake Total 1000 / 1000 1050 / 2050 Balance 1000 / 1000 1050 / 2050 Weight last 48 hrs Weight 108.862 kg Physical Exam Const: COMMON NORMALS: no acute distress and patient oriented x3 HENMT: COMMON NORMALS: normocephalic HEAD & SCALP: normocephalic Eye: COMMON NORMALS: Equal, round and reactive pupils present and EOMs intact bilaterally Neck/C-Spine: COMMON NORMALS: no JVD Lymph: LYMPHATIC: no lymphadenopathy noted Resp: COMMON NORMALS: normal respiratory effort, No retractions, No use of accessory muscles and clear to auscultation bilaterally AUSCULTATION: clear to auscultation bilaterally Cardio: COMMON NORMALS: regular rate, regular rhythm, S1 normal heart sound present and S2 normal heart sound present RATE: tachycardic RHYTHM: abnormal rhythm HEART SOUNDS: S1 normal heart sound present and S2 normal heart sound present GI: COMMON NORMALS: Normal to inspection, nondistended, normoactive bowel sounds present, Soft to palpation and non-tender : BLADDER/KIDNEY EXAM: Yes CVA tenderness on the left Extremity: COMMON NORMALS: no pedal edema NARRATIVE EXTREMITY EXAM: In Cam boot Neuro: COMMON NORMALS: patient oriented x3, CN's II-XII intact bilaterally, moves all extremities and no focal motor deficits Psych: COMMON NORMALS: mental status grossly normal Data 12/09/22 11:52 12/09/22 11:52 Micro: Microbiology 12/09/22 13:55 Blood Culture - Preliminary Blood SPECIMEN COLLECTED 12/09/22 13:58 Blood Culture - Preliminary Blood SPECIMEN COLLECTED A&P Assessment and plan (1) Leukocytosis: (2) Pyelonephritis of left kidney: (3) Atrial fibrillation with RVR: (4) Atrial fibrillation: Qualifiers: Atrial fibrillation type: paroxysmal Qualified Code(s): I48.0 - Paroxysmal atrial fibrillation (5) COPD (chronic obstructive pulmonary disease): Qualifiers: COPD type: unspecified COPD Qualified Code(s): J44.9 - Chronic obstructive pulmonary disease, unspecified (6) Dyslipidemia: (7) Diabetes mellitus with hyperglycemia, with long-term current use of insulin: (8) Situational anxiety: (9) DM neuropathy, painful: Qualifiers: Diabetes mellitus type: type 2 Diabetes mellitus complication detail: diabetic polyneuropathy Qualified Code(s): E11.42 - Type 2 diabetes mellitus with diabetic polyneuropathy (10) UTI (urinary tract infection): Plan Left pyelonephritis, UTI -CT scan abdomen pelvis with contrast -Urine cultures, blood cultures, Pro-Shaun, CRP -Continue Rocephin A-fib with RVR -Continue amiodarone drip -Watch in CSU -Mag, TSH, cardiac echo Pseudohyponatremia, second hyperglycemia monitor Type 2 diabetes mellitus, decrease Lantus to 20 units at bedtime due to poor appetite, moderate dose sliding scale Nausea and vomiting, continue Zofran, monitor Serial EKGs, serial troponins, telemetry monitoring Attestations Medical Necessity Statement*: patient requires hospitalizaiton for afib rvr, uti, pyelonephritis, inpatient, greater than 2 midnights Diagnoses Leukocytosis D72.829 Pyelonephritis of left kidney N12 Atrial fibrillation with RVR I48.91 Atrial fibrillation I48.0 Atrial fibrillation type: paroxysmal COPD (chronic obstructive pulmonary disease) J44.9 COPD type: unspecified COPD Dyslipidemia E78.5 Diabetes mellitus with hyperglycemia, with long-term current use of insulin E11.65; Z79.4 Situational anxiety F41.8 DM neuropathy, painful E11.42 Diabetes mellitus type: type 2 Diabetes mellitus complication detail: diabetic polyneuropathy UTI (urinary tract infection) N39.0
[2022-12-09 18:08] LABS: Troponin(5th) Baseline 8 ng/L (0-10)
[2022-12-09] MEDS: iohexol 350 mg/mL 500 mL Btl (per mL) IV (18:13)
--- NOTE | 2022-12-09 19:10 | ECG_ITS ---
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 Measurements Intervals [place] Rate: 129 P: 0 DC: 0 QRS: 29 QRSD: 107 T: -34 QT: 282 QTc: 414 Interpretive Statements ATRIAL FLUTTER/TACHYCARDIA WITH RAPID VENTRICULAR RESPONSE ANTEROSEPTAL MYOCARDIAL INFARCTION , OF INDETERMINATE AGE [40+ ms Q WAVE IN V1-V4] POSSIBLE INFERIOR MYOCARDIAL INFARCTION , OF INDETERMINATE AGE Compared to ECG 12/09/2022 16:09:37 ST (T wave) deviation now present Myocardial infarct finding still present Electronically Signed On 12-09-2022 21:32:28 CDT by Nan Coe M.D. [id number]
--- NOTE | 2022-12-09 19:48 | PC.NURSE ---
notified Dr Brock of critical radiology findings via Voalte, message read
[2022-12-09 20:10] LABS: Troponin 5 2HR 8.04 ng/L (0-10); Troponin 5 2HR Delta 0.04 ABS# (0-10)
[2022-12-09 20:15] LABS: Procalcitonin 4.19 ng/mL (0-0.5)
[2022-12-09 20:25] LABS: C Reactive Protein 313.2 mg/L (0.0-4.9)
[2022-12-09] MEDS: gabapentin 300 mg Capsule PO (20:52)
[2022-12-09] MEDS: metoprolol tartrate 25 mg Tablet PO (20:52)
[2022-12-09] MEDS: duloxetine 60 mg Capsule PO (20:52)
[2022-12-09] MEDS: tizanidine 4 mg Tablet 2 MG PO (20:53)
[2022-12-09] MEDS: atorvastatin 40 mg Tablet 20 MG PO (20:54)
[2022-12-09] MEDS: rivaroxaban 10 mg Tablet 20 MG PO (20:55)
[2022-12-09] MEDS: doxepin 10 mg Capsule PO (20:55)
[2022-12-09 21:04] LABS: Glucose Point of Care 461 mg/dL (70-110)
[2022-12-09] MEDS: pantoprazole 40 mg SDV IVP (21:20)
[2022-12-09] MEDS: enoxaparin 40 mg/0.4 mL Syringe SUBCUT (21:23)
[2022-12-09] MEDS: insulin glargine 100 units/1 mL 20 UNIT SUBCUT (21:24)
[2022-12-09] MEDS: insulin lispro 100 unit/1 mL SUBCUT (21:24)
--- NOTE | 2022-12-09 23:10 | ECG_ITS ---
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 Measurements Intervals [place] Rate: 111 P: 0 ND: 0 QRS: -37 QRSD: 118 T: 50 QT: 352 QTc: 480 Interpretive Statements ATRIAL FLUTTER WITH RAPID VENTRICULAR RESPONSE LEFT AXIS DEVIATION [QRS AXIS < -30] LOW QRS VOLTAGE IN EXTREMITY LEADS [QRS DEFLECTION < 0.5 mV IN LIMB LEADS] POSSIBLE ANTERIOR MYOCARDIAL INFARCTION , OF INDETERMINATE AGE [30 ms Q WAVE IN V3/V4, OR R < 0.2 mV IN V4] Compared to ECG 12/09/2022 18:47:13 Left-axis deviation now present Low QRS voltage now present Electronically Signed On 12-10-2022 9:21:35 CDT by Santo Hinojosa M.D. [id number]
[2022-12-09] MEDS: acetaminophen 325 mg Tablet 650 MG PO (23:42)
[2022-12-10] VITALS (10 sets, daily range): BP systolic 106–129; BP diastolic 63–77; PULSE 110–120; RESP 15–20; TEMP 36.7–38.2; O2SAT 90–97
[2022-12-10 04:38] LABS: Basophils # 0.1 10^3/uL (0.0-0.1); Basophils % 0.6 %; Eosinophils # 0.4 10^3/uL (0.0-0.8); Hematocrit 37.7 % (36-47); Lymphocytes # 1.5 10^3/uL (0.8-4.8); Lymphocytes % 7.7 %; Mean Corpuscular HGB Conc 32.4 g/dL (30-55); Mean Corpuscular Hemoglobin 28.4 pg (27-33); Mean Corpuscular Volume 87.7 fl (85-98); Mean Platelet Volume 11.6 fL (7.4-10.4); Monocytes # 1.9 10^3/uL (0.2-0.9); Monocytes % 9.4 %; Neutrophils # 15.68 10^3/uL (1.8-7.7); Neutrophils % 79.2 %; Nucleated Red Blood Cells % 0 %; Platelet Count 194 10^3/cmm (157-399); Red Cell Distribution Width 14.7 % (12.1-15.1)
[2022-12-10 05:06] LABS: Blood Urea Nitrogen 36 mg/dL (6-20); Calcium 8.2 mg/dL (8.5-10.5); Carbon Dioxide 25 mmol/L (22-29); Chloride 92 mmol/L (98-107); Glomerular Filtration Rate 42.1 mL/min (90-130); Glucose 273 mg/dL (65-115); Magnesium 2.1 mg/dL (1.7-2.3); Osmolality Calculated 282 mOsm/kg (285-295); Phosphorus 2.3 mg/dL (2.5-4.5); Sodium 127 mmol/L (136-145); Thyroid Stimulating Hormone 1.54 uIU/mL (0.27-4.20)
[2022-12-10 05:09] LABS: Chol HDL Ratio 8.58 mg/dL (0.0-4.40); Cholesterol 103 mg/dL (0-200); HDL Cholesterol 12 mg/dL (60-100); LDL Cholesterol Calculated 41 mg/dL (50-129); LDL HDL Ratio 3.42 RATIO (0.00-3.22); NT Pro B Type Natriuretic Pept 2080 pg/mL (0-125); Triglycerides 249 mg/dL (0-150)
[2022-12-10 05:10] LABS: Estmated Average Glucose 306; Hemoglobin A1C 12.3 % (4.0-6.0)
[2022-12-10] MEDS: metoprolol tartrate 25 mg Tablet PO ×2 (06:00→18:02)
[2022-12-10 07:21] LABS: Glucose Point of Care 279 mg/dL (70-110)
[2022-12-10] MEDS: insulin lispro 100 unit/1 mL SUBCUT ×3 (08:43→18:02)
--- NOTE | 2022-12-10 09:03 | US_ITS ---
WS: [id number] RENAL ULTRASOUND HISTORY: left hydro COMPARISON: 12/09/2022 CT TECHNIQUE: 2-D and color Doppler imaging of the kidney submitted. Right kidney: 11.5 cm x 4.2 cm x 4.5 cm. Cortex: 1.1 cm Kidneys normal size. There is mild asymmetric cortical thickening involving the lower pole of the RIG HT kidney. Loss of the normal cortical medullary junction. Left kidney: 14.7 cm x 7.8 cm x 5.8 cm. Cortex: 2.4 cm Enlarged edematous LEFT kidney. Loss of the normal cortical medullary junction. No focal abscess. Aorta: Normal. Urinary Bladder: Normal distention. Cholelithiasis. IMPRESSION: 1. No hydronephrosis. 2. Enlargement of the LEFT kidney with loss of the corticomedullary junction. Consistent with history of pyelonephritis. Similar findings noted focally in the lower pole of the RIGHT kidney. 3. Cholelithiasis without acute cholecystitis.
[2022-12-10] MEDS: gabapentin 300 mg Capsule PO ×2 (09:47→22:14)
[2022-12-10] MEDS: duloxetine 60 mg Capsule PO ×2 (09:47→22:15)
--- NOTE | 2022-12-10 09:48 | PC.CHAP ---
Pastoral Care Encounter/Spiritual Assessment Type of Contact [] Declined network technical analyst visit [] Patient/Family/Request visit [] Outpatient visit [] Follow-up visit [] Physician referral [] Code/Alert [] Routine visit [] Staff referral [] Actively dying [] Patient sleeping [] Family support [] [] Out of room [] Palliative care [] [x] Receiving care in room [] Pre-surgical visit [] Trauma [] Long length of stay [] ICU visit [] Other: Relational/Emotional Strength [] Patient feels connected with others/family/visitors/staff [] Distress [] Loneliness/isolation [] Abandonment Spirituality of Patient [] Person of Mikayla [] Attends Druze of their Mikayla [] Believes in Prayer [] Reads Bible or Baptist materials [] There are Spiritual issues to be addressed Heel Cover Splitter Interventions [] Prayer [] Active listening [] Non-anxious presence [] Spiritual/emotional support [] Crisis/trauma care [] Spiritual counseling [] Bereavement support [] Provided bereavement packet [] Provided Bible/devotional materials [] Provided toy/stuffed animal, coloring book to patient or family member [] Provided Communion [] Anointing/[place] [] Salvation [] Completed spiritual assessment [] Other: Impact on Illness or Injury [] Angry [] Fearful [] Anxious [] Often cries [] Exhaustion [] Unable to work [] Unable to attend mosque [] Unable to walk/stand [] Unable to read [] Unable to drive [] Unable to eat/drink [] Unable to sleep [] Unable to be with family [] Patient intubated [] Other: Summary Time spent with patient
--- NOTE | 2022-12-10 10:30 | PC.NURSE ---
Orders to give patient 150mg bolus of amio off pump and increase gtt rate to 1mg/min
[2022-12-10 12:18] LABS: Glucose Point of Care 279 mg/dL (70-110)
--- NOTE | 2022-12-10 13:34 | PC.NURSE ---
Orders to place alexis catheter
[2022-12-10] MEDS: digoxin 250 mcg/ml INJ 2 mL IVP (13:48)
[2022-12-10] MEDS: cefTRIAXone 1,000 MG in sodium chloride 0.9% (plus) 50 ML 100 MG IV (15:09)
[2022-12-10 16:59] LABS: Glucose Point of Care 316 mg/dL (70-110)
--- NOTE | 2022-12-10 17:31 | P.PN_ITS ---
Subjective Subjective: - Patient was seen this morning, she remains in A-fib with RVR, heart rates in the 120s, on amiodarone drip -I had a discussion with patient about her CT scan findings she has a 3 mm stone with bilateral hydro on the left,, with mild obstruction, I will do a renal ultrasound, if the stone has not passed, worsening obstruction, if she develops systemic symptoms I will consider transferring her for urology evaluation however if the renal ultrasound is within normal limits, we will keep her here -She voiced understanding, all question answered, does report feeling tired and fatigued patient continued to have A-fib with RVR, heart rates in the 120s was given amiodarone bolus -Later on in the afternoon, she continued to have heart rates in the 120s, was given a 250 digoxin push -Renal ultrasound shows no evidence of hydronephrosis, radiographic evidence of left pyelo- Vitals/I&O/Wt Last Vital Signs Temp 100.0 F H 12/10/22 16:00 Pulse 116 H 12/10/22 16:00 Resp 18 12/10/22 16:00 BP 123/76 12/10/22 16:00 Pulse Ox 90 12/10/22 16:00 O2 Del Method Nasal Cannula 12/10/22 11:39 O2 Flow Rate 3 12/10/22 08:00 12/10/22 12/10/22 12/10/22 06:59 14:59 22:59 Intake Total 789.093 / 789.093 50 / 839.093 Output Total 75 / 75 700 / 700 Balance -75 / 2183.907 89.093 / 89.093 50 / 139.093 Weight last 48 hrs Weight 108.862 kg Physical Exam Const: COMMON NORMALS: no acute distress and patient oriented x3 Resp: COMMON NORMALS: normal respiratory effort, No retractions, No use of accessory muscles and clear to auscultation bilaterally AUSCULTATION: clear to auscultation bilaterally Cardio: COMMON NORMALS: S1 normal heart sound present and S2 normal heart sound present RATE: tachycardic RHYTHM: abnormal rhythm irregularly irregular HEART SOUNDS: S1 normal heart sound present and S2 normal heart sound present GI: COMMON NORMALS: Normal to inspection, nondistended, normoactive bowel nate nds present and non-tender Extremity: COMMON NORMALS: no pedal edema Neuro: COMMON NORMALS: patient oriented x3 Psych: COMMON NORMALS: mental status grossly normal Urinary Catheter Management: [place]: Cath Placed During This Visit: yes Urinary Catheter Date of Insertion: 12/10/22 Urinary Catheter Time of Insertion: 13:38 Data 12/10/22 04:28 12/10/22 04:28 Micro: Microbiology 12/09/22 13:58 Blood Culture - Preliminary Blood NEGATIVE TO DATE 12/09/22 12:58 Urine Culture - Preliminary Urine,Clean Catch Gram Negative Rods 12/09/22 13:55 Blood Culture - Preliminary Blood A&P Assessment and plan (1) Leukocytosis: (2) Pyelonephritis of left kidney: (3) Atrial fibrillation with RVR: (4) Atrial fibrillation: Qualifiers: Atrial fibrillation type: paroxysmal Qualified Code(s): I48.0 - Paroxy smal atrial fibrillation (5) COPD (chronic obstructive pulmonary disease): Qualifiers: COPD type: unspecified COPD Qualified Code(s): J44.9 - Chronic obstructive pulmonary disease, unspecified (6) Dyslipidemia: (7) Diabetes mellitus with hyperglycemia, with long-term current use of insulin: (8) Situational anxiety: (9) DM neuropathy, painful: Qualifiers: Diabetes mellitus type: type 2 Diabetes mellitus complication detail: diabetic polyneuropathy Qualified Code(s): E11.42 - Type 2 diabetes mellitus with diabetic polyneuropathy (10) UTI (urinary tract infection): (11) Gram-negative bacteremia: (12) Nephrolithiasis: (13) Hydronephrosis due to obstruction of ureter: (14) Arrhythmia: (15) Leukocytosis: (16) UTI (urinary tract infection): Plan Left pyelonephritis, UTI -CT scan abdomen pelvis with contrast IMPRESSION: 1. ? There is bilateral pyelonephritis, worse on the left. 2. ? 3 mm calculus in the mid to distal left ureter with mild obstructive changes. renal US MPRESSION: 1. No hydronephrosis. 2. Enlargement of the LEFT kidney with loss of the corticomedullary junction. Co nsistent with history of pyelonephritis. Similar findings noted focally in the lower pole of the RIGHT kidney. 3. Cholelithiasis without acute cholecystitis. -Urine cultures, blood cultures, Pro-Shaun, CRP -Broaden antibiotics to Zosyn Gram-negative bacteremia, secondary to left pyelonephritis, UTI, on Zosyn A-fib with RVR -Continue amiodarone drip, status post amiodarone bolus, status post digoxin bolus -Continue Metroprolol 25 twice daily -Watch in CSU -cardiac echo Pseudohyponatremia, second hyperglycemia monitor Type 2 diabetes mellitus, decrease Lantus to 20 units at bedtime due to poor appetite, moderate dose sliding scale Nausea and vomiting, continue Zofran, monitor Serial EKGs, serial troponins, telemetry monitoring Attestations Medical Necessity Statement*: Patient requires hospitalization for A-fib with RVR, left pyelonephritis, gram- negative bacteremia Diagnoses Leukocytosis D72.829 Pyelonephritis of left kidney N12 Atrial fibrillation with RVR I48.91 Atrial fibrillation I48.0 Atrial fibrillation type: paroxysmal COPD (chronic obstructive pulmonary disease) J44.9 COPD type: unspecified COPD Dyslipidemia E78.5 Diabetes mellitus with hyperglycemia, with long-term current use of insulin E11.65; Z79.4 Situational anxiety F41.8 DM neuropathy, painful E11.42 Diabetes mellitus type: type 2 Diabetes mellitus complication detail: diabetic polyneuropathy UTI (urinary tract infection) N39.0 Gram-negative bacteremia R78.81 Nephrolithiasis N20.0 Hydronephrosis due to obstruction of ureter N13.1 Arrhythmia I49.9
[2022-12-10] MEDS: pantoprazole 40 mg SDV IVP (18:03)
[2022-12-10] MEDS: piperacillin-tazobactam 3.375 GM in sodium chloride 0.9% (plus) 50 ML IV (18:03)
[2022-12-10] MEDS: enoxaparin 40 mg/0.4 mL Syringe SUBCUT (18:03)
[2022-12-10 21:05] LABS: Glucose Point of Care 313 mg/dL (70-110)
[2022-12-10] MEDS: tizanidine 4 mg Tablet 2 MG PO (22:13)
[2022-12-10] MEDS: doxepin 10 mg Capsule PO (22:14)
[2022-12-10] MEDS: atorvastatin 40 mg Tablet 20 MG PO (22:14)
[2022-12-10] MEDS: rivaroxaban 10 mg Tablet 20 MG PO (22:14)
[2022-12-10] MEDS: insulin glargine 100 units/1 mL 20 UNIT SUBCUT (22:15)
[2022-12-11] VITALS (14 sets, daily range): BP systolic 86–119; BP diastolic 62–80; PULSE 76–115; RESP 15–23; TEMP 36.6–37.6; O2SAT 89–94
[2022-12-11] MEDS: piperacillin-tazobactam 3.375 GM in sodium chloride 0.9% (plus) 50 ML IV ×3 (03:11→18:17)
[2022-12-11 04:45] LABS: Basophils # 0.1 10^3/uL (0.0-0.1); Basophils % 0.6 %; Eosinophils # 0.5 10^3/uL (0.0-0.8); Eosinophils % 2.5 %; Hematocrit 35.4 % (36-47); Lymphocytes # 1.5 10^3/uL (0.8-4.8); Lymphocytes % 8.5 %; Mean Corpuscular HGB Conc 32.8 g/dL (30-55); Mean Corpuscular Hemoglobin 28.4 pg (27-33); Mean Corpuscular Volume 86.8 fl (85-98); Mean Platelet Volume 11.9 fL (7.4-10.4); Monocytes # 1.5 10^3/uL (0.2-0.9); Monocytes % 8.4 %; Neutrophils # 13.98 10^3/uL (1.8-7.7); Neutrophils % 77.2 %; Nucleated Red Blood Cells % 0 %; Platelet Count 207 10^3/cmm (157-399); Red Blood Count 4.08 10^6/uL (3.85-5.65); Red Cell Distribution Width 14.9 % (12.1-15.1)
[2022-12-11 05:11] LABS: Anion Gap 13.7 (5-19); Blood Urea Nitrogen 43 mg/dL (6-20); Carbon Dioxide 24 mmol/L (22-29); Chloride 91 mmol/L (98-107); Glomerular Filtration Rate 30.9 mL/min (90-130); Glucose 278 mg/dL (65-115); Magnesium 2.1 mg/dL (1.7-2.3); Osmolality Calculated 281 mOsm/kg (285-295); Potassium 3.7 mmol/L (3.5-5.1); Sodium 125 mmol/L (136-145)
[2022-12-11 05:22] LABS: NT Pro B Type Natriuretic Pept 2748 pg/mL (0-125); Procalcitonin 3.49 ng/mL (0-0.5)
[2022-12-11 05:34] LABS: C Reactive Protein 243.7 mg/L (0.0-4.9)
[2022-12-11] MEDS: metoprolol tartrate 25 mg Tablet PO (06:06)
[2022-12-11 06:14] LABS: Glucose Point of Care 283 mg/dL (70-110)
[2022-12-11] MEDS: duloxetine 60 mg Capsule PO ×2 (08:47→21:08)
[2022-12-11] MEDS: gabapentin 300 mg Capsule PO ×2 (08:47→21:07)
[2022-12-11] MEDS: insulin lispro 100 unit/1 mL SUBCUT ×3 (08:47→18:18)
[2022-12-11] MEDS: amiodarone 200 mg Tablet 400 MG PO ×2 (08:47→18:18)
[2022-12-11 11:16] LABS: Glucose Point of Care 367 mg/dL (70-110)
--- NOTE | 2022-12-11 16:39 | P.PN_ITS ---
Subjective Subjective: Patient was seen this morning she tells me she feels a lot better, no fevers, no chills, she continues to be in A-fib, with RVR, will wean off amiodarone drip, she has been started on p.o. amiodarone, she agrees, we went over her renal ultrasound, it seems like her renal ultrasound shows that the kidney stone has patchy her hydronephrosis has improved, we will monitor this, her creatinine has gone up to 1.7 we will have to watch her urine output, will start her on gentle IV hydration, her blood sugars have been elevated, I Feli increase her home Lantus to 30 units at bedtime, will monitor blood sugars closely Vitals/I&O/Wt Last Vital Signs Temp 97.8 F 12/11/22 16:00 Pulse 115 H 12/11/22 16:00 Resp 15 12/11/22 16:00 BP 115/74 12/11/22 16:00 Pulse Ox 94 12/11/22 16:00 O2 Del Method Nasal Cannula 12/11/22 07:55 O2 Flow Rate 3 12/11/22 07:55 12/11/22 12/11/22 12/11/22 06:59 14:59 22:59 Intake Total 1290.892 / 1290.892 Output Total 550 / 1550 Balance -550 / -546.460 0319.892 / 1290.892 Physical Exam Const: COMMON NORMALS: no acute distress and patient oriented x3 Resp: COMMON NORMALS: normal respiratory effort, No retractions, No use of accessory muscles and clear to auscultation bilaterally AUSCULTATION: clear to auscultation bilaterally Cardio: COMMON NORMALS: S1 normal heart sound present and S2 normal heart sound present RATE: tachycardic RHYTHM: abnormal rhythm HEART SOUNDS: S1 normal heart sound present and S2 normal heart sound present GI: COMMON NORMALS: Normal to inspection, nondistended, normoactive bowel sounds present and non-tender Extremity: COMMON NORMALS: no pedal edema Neuro: COMMON NORMALS: patient oriented x3 Psych: COMMON NORMALS: mental status grossly normal Urinary Catheter Management: Mcdowell: Cath Placed During This Visit: yes Reason for Continuing Indwelling Catheter: Other Urinary Catheter Date of Insertion: 12/10/22 Urinary Catheter Time of Insertion: 13:38 Data 12/11/22 04:25 12/11/22 04:25 Micro: Microbiology 12/09/22 12:58 Urine Culture - Final Urine,Clean Catch Escherichia coli 12/11/22 04:25 Blood Culture - Preliminary Blood SPECIMEN COLLECTED 12/11/22 04:25 Blood Culture - Preliminary Blood SPECIMEN COLLECTED 12/09/22 13:58 Blood Culture - Preliminary Blood NEGATIVE TO DATE A&P Assessment and plan (1) Leukocytosis: (2) Pyelonephritis of left kidney: (3) Atrial fibrillation with RVR: (4) Atrial fibrillation: Qualifiers: Atrial fibrillation type: paroxysmal Qualified Code(s): I48.0 - Paroxysmal atrial fibrillation (5) COPD (chronic obstructive pulmonary disease): Qualifiers: COPD type: unspecified COPD Qualified Code(s): J44.9 - Chronic obstructive pulmonary disease, unspecified (6) Dyslipidemia: (7) Diabetes mellitus with hyperglycemia, with long-term current use of insulin: (8) Situational anxiety: (9) DM neuropathy, painful: Qualifiers: Diabetes mellitus type: type 2 Diabetes mellitus complication detail: diabetic polyneuropathy Qualified Code(s): E11.42 - Type 2 diabetes mellitus with diabetic polyneuropathy (10) UTI (urinary tract infection): (11) Gram-negative bacteremia: (12) Nephrolithiasis: (13) Hydronephrosis due to obstruction of ureter: (14) Arrhythmia: (15) Leukocytosis: (16) UTI (urinary tract infection): Plan Left pyelonephritis, UTI -CT scan abdomen pelvis with contrast IMPRESSION: 1. ? There is bilateral pyelonephritis, worse on the left. 2. ? 3 mm calculus in the mid to distal left ureter with mild obstructive changes. renal US MPRESSION: 1. No hydronephrosis. 2. Enlargement of the LEFT kidney with loss of the corticomedullary junction. Consistent with history of pyelonephritis. Similar findings noted focally in the lower pole of the RIGHT kidney. 3. Cholelithiasis without acute cholecystitis. -Urine cultures, blood cultures, Pro-Shaun, CRP -Broaden antibiotics to Zosyn Gram-negative bacteremia, secondary to left pyelonephritis, UTI, on Zosyn A-fib with RVR -Currently on p.o. amiodarone, wean off amiodarone drip, crease metoprolol to 37.5 mg twice daily -Status post digoxin bolus, will avoid further bolus given creatinine up to 1.7 -Watch in CSU -cardiac echo Acute kidney injury, creatinine 1.7, start IV fluids, watch renal function closely Pseudohyponatremia, second hyperglycemia monitor Type 2 diabetes mellitus, decrease Lantus to 20 units at bedtime due to poor appetite, moderate dose sliding scale Nausea and vomiting, continue Zofran, monitor Serial EKGs, serial troponins, telemetry monitoring Plan for today repeat blood cultures, follow urine cultures, A-fib with RVR, Attestations Medical Necessity Statement*: Patient requires hospitalization A-fib with RVR, weaned off amiodarone drip as above, titrate medications, ELVI IV fluids, continue antibiotics for gram- negative bacteremia, pyelonephritis Diagnoses Leukocytosis D72.829 Pyelonephritis of left kidney N12 Atrial fibrillation with RVR I48.91 Atrial fibrillation I48.0 Atrial fibrillation type: paroxysmal COPD (chronic obstructive pulmonary disease) J44.9 COPD type: unspecified COPD Dyslipidemia E78.5 Diabetes mellitus with hyperglycemia, with long-term current use of insulin E11.65; Z79.4 Situational anxiety F41.8 DM neuropathy, painful E11.42 Diabetes mellitus type: type 2 Diabetes mellitus complication detail: diabetic polyneuropathy UTI (urinary tract infection) N39.0 Gram-negative bacteremia R78.81 Nephrolithiasis N20.0 Hydronephrosis due to obstruction of ureter N13.1 Arrhythmia I49.9
[2022-12-11 17:03] LABS: Glucose Point of Care 331 mg/dL (70-110)
[2022-12-11] MEDS: sodium chloride 0.9% 1,000 ML 50 ML IV (18:14)
[2022-12-11] MEDS: pantoprazole 40 mg SDV IVP (18:17)
[2022-12-11] MEDS: enoxaparin 40 mg/0.4 mL Syringe SUBCUT (18:18)
[2022-12-11] MEDS: metoprolol tartrate 25 mg Tablet 37.5 MG PO (18:19)
--- NOTE | 2022-12-11 18:33 | USCV_ITS ---
[facility] Age: 57 Gender: F : 1965 Exam Date: 12/11/2022 15:07 Ordering Phys: Ji Chung MD Technologist: CT Exam Location: [facility] – [place] Indication: afib BP: / HR: 91 Rhythm: Atrial fibrillation Technical Quality: Adequate MEASUREMENTS (Male / Female) Normal Values 2D ECHO LV Chamber Size 5.1 cm RV Chamber Size 4.1 cm LVOT Diameter 2.0 cm LV Ejection Fraction MOD 2C 47.6 % LV Ejection Fraction 2C AL 46.2 % LA Diameter 4.7 cm LA Width 4.6 cm LA Height 6.3 cm RA Width 4.6 cm RA Height 5.9 cm Aorta at Sinotubular Diameter 2.3 cm IVC Diameter 2.0 cm M-MODE Aortic Annulus Diameter 3.0 cm LA Ao Ratio MM 1.6 MV E Point Septal Separation 1.1 cm DOPPLER AV Peak Velocity 139.0 cm/s LVOT Peak Velocity 81.0 cm/s AV Area Cont Eq vti 1.8 cm squared AV Area Cont Eq pk 1.9 cm squared MV Area PHT 5.8 cm squared MV E' Velocity 60.5 cm/s Mitral E to MV E' Ratio 7.2 Mitral E to LV E' Lateral Ratio 6.7 Mitral E to LV E' Septal Ratio 7.6 TR Peak Velocity 171.3 cm/s TR Peak Gradient 11.7 mmHg TV Peak E Velocity 78.0 cm/s Right Atrial Pressure 3.0 mmHg Pulmonary Artery Systolic Pressu 14.7 mmHg PV Peak Velocity 105.0 cm/s FINDINGS Left Ventricle Technically limited quality echocardiogram because of poor ultrasonic windows. LV systolic function is grossly mildly reduced. Regional wall motion abnormalities can not be assessed because of poor visualization Right Ventricle Normal in size and function Right Atrium Normal in size Left Atrium Dilated Mitral Valve Mild mitral regurgitation Aortic Valve No significant stenosis or regurgitation Tricuspid Valve Grossly normal Pulmonic Valve Not well visualized Pericardium Normal Aorta Normal in size IVC Dilated CONCLUSIONS Technically limited quality echocardiogram because of poor ultrasonic windows. Grossly LV systolic function is mildly reduced. Left atrial dilation Mild mitral regurgitation IVC is dilated Accuarte comparison with prior echocardiogram from 09/2022 not possible because of poor visualization but grossly LV systolic function has worsened and is mildly reduced now Santo Hinojosa MD (Electronically Signed) Final Date: 12 December 2022 16:51 S
[2022-12-11 20:30] LABS: Glucose Point of Care 334 mg/dL (70-110)
[2022-12-11] MEDS: rivaroxaban 10 mg Tablet 20 MG PO (21:07)
[2022-12-11] MEDS: acetaminophen 325 mg Tablet 650 MG PO (21:08)
[2022-12-11] MEDS: doxepin 10 mg Capsule PO (21:08)
[2022-12-11] MEDS: atorvastatin 40 mg Tablet 20 MG PO (21:08)
[2022-12-11] MEDS: tizanidine 4 mg Tablet 2 MG PO (21:08)
[2022-12-11] MEDS: insulin glargine 100 units/1 mL 30 UNIT SUBCUT (21:10)
[2022-12-12] VITALS (12 sets, daily range): BP systolic 107–125; BP diastolic 66–77; PULSE 81–104; RESP 17–22; TEMP 36.5–36.8; O2SAT 95–96
[2022-12-12 01:08] LABS: Glucose Point of Care 335 mg/dL (70-110)
[2022-12-12] MEDS: piperacillin-tazobactam 3.375 GM in sodium chloride 0.9% (plus) 50 ML IV ×3 (01:55→17:53)
[2022-12-12] MEDS: metoprolol tartrate 25 mg Tablet 37.5 MG PO ×2 (05:02→17:52)
[2022-12-12 05:07] LABS: Basophils # 0.1 10^3/uL (0.0-0.1); Basophils % 0.6 %; Eosinophils # 0.4 10^3/uL (0.0-0.8); Eosinophils % 2.5 %; Hematocrit 36.5 % (36-47); Lymphocytes # 1.6 10^3/uL (0.8-4.8); Lymphocytes % 10.6 %; Mean Corpuscular HGB Conc 32.6 g/dL (30-55); Mean Corpuscular Hemoglobin 28.5 pg (27-33); Mean Corpuscular Volume 87.3 fl (85-98); Monocytes # 1.3 10^3/uL (0.2-0.9); Monocytes % 8.1 %; Neutrophils # 11.22 10^3/uL (1.8-7.7); Neutrophils % 72.8 %; Nucleated Red Blood Cells % 0 %; Platelet Count 270 10^3/cmm (157-399); Red Blood Count 4.18 10^6/uL (3.85-5.65); Red Cell Distribution Width 14.9 % (12.1-15.1); White Blood Count 15.42 10^3/uL (3.29-11.43)
[2022-12-12 05:25] LABS: C Reactive Protein 179.4 mg/L (0.0-4.9)
[2022-12-12 05:33] LABS: NT Pro B Type Natriuretic Pept 4228 pg/mL (0-125); Procalcitonin 1.67 ng/mL (0-0.5)
[2022-12-12 05:52] LABS: Anion Gap 14.8 (5-19); Blood Urea Nitrogen 39 mg/dL (6-20); Calcium 7.7 mg/dL (8.5-10.5); Carbon Dioxide 25 mmol/L (22-29); Chloride 97 mmol/L (98-107); Glomerular Filtration Rate 33.1 mL/min (90-130); Glucose 289 mg/dL (65-115); Magnesium 2.2 mg/dL (1.7-2.3); Osmolality Calculated 296 mOsm/kg (285-295); Potassium 3.8 mmol/L (3.5-5.1); Sodium 133 mmol/L (136-145)
[2022-12-12 05:58] LABS: Slide Review Slide Review Perform
[2022-12-12 06:31] LABS: Glucose Point of Care 304 mg/dL (70-110)
[2022-12-12] MEDS: duloxetine 60 mg Capsule PO ×2 (09:40→21:30)
[2022-12-12] MEDS: amiodarone 200 mg Tablet 400 MG PO ×2 (09:40→17:53)
[2022-12-12] MEDS: gabapentin 300 mg Capsule PO ×2 (09:40→21:30)
[2022-12-12] MEDS: insulin lispro 100 unit/1 mL SUBCUT ×3 (09:41→17:53)
[2022-12-12 12:12] LABS: Glucose Point of Care 324 mg/dL (70-110)
--- NOTE | 2022-12-12 14:32 | ECG_ITS ---
[facility] Test Date: 2022-12-12 Pat Name: Soni Head Department: Room: 112 Gender: Female [employer] Artist: : 1965 Requested By: Ji Chung Order Number: [id number] Eric MD: Santo Hinojosa M.D. Measurements Intervals Guild Rate: 86 P: 0 IL: 0 QRS: 19 QRSD: 121 T: 0 QT: 372 QTc: 447 Interpretive Statements ATRIAL FLUTTER MODERATE INTRAVENTRICULAR CONDUCTION DELAY [105+ ms QRS DURATION, 80+ ms Q/S IN V1/V2, NO Q AND 60+ ms R IN I/aVL/V5/V6] Compared to ECG 12/09/2022 23:55:31 Intraventricular conduction delay now present Left-axis deviation no longer present Myocardial infarct finding no longer present Electronically Signed On 12-12-2022 15:03:28 CDT by Santo Hinojosa M.D. [id number]
--- NOTE | 2022-12-12 16:19 | PM.PN ---
Subjective Subjective: Patient was seen this morning, she does feel significantly better, currently denies any fevers, no chills, no cough Vitals/I&O/Wt Last Vital Signs Temp 98.2 F 12/12/22 04:00 Pulse 83 12/12/22 14:56 Resp 18 12/12/22 14:56 BP 107/66 12/12/22 14:56 Pulse Ox 96 12/12/22 10:52 O2 Del Method Room Air 12/12/22 08:00 O2 Flow Rate 2 12/11/22 20:22 12/12/22 12/12/22 12/12/22 06:59 14:59 22:59 Intake Total 50 / 2020.892 480 / 480 Output Total 900 / 2800 Balance -850 / -779.108 480 / 480 Physical Exam Const: COMMON NORMALS: no acute distress and patient oriented x3 Resp: COMMON NORMALS: normal respiratory effort, No retractions, No use of accessory muscles and clear to auscultation bilaterally AUSCULTATION: clear to auscultation bilaterally Cardio: COMMON NORMALS: regular rate, regular rhythm, S1 normal heart sound present and S2 normal heart sound present RATE: regular rate RHYTHM: regular rhythm HEART SOUNDS: S1 normal heart sound present and S2 normal heart sound present GI: COMMON NORMALS: Normal to inspection, nondistended, normoactive bowel sounds present and non-tender Extremity: COMMON NORMALS: no pedal edema Neuro: COMMON NORMALS: patient oriented x3 Psych: COMMON NORMALS: mental status grossly normal Urinary Catheter Management: Mcdowell: Cath Placed During This Visit: yes Reason for Continuing Indwelling Catheter: Accurate Measurement of Urinary Output in Critically Ill Patients Urinary Catheter Date of Insertion: 12/10/22 Urinary Catheter Time of Insertion: 13:38 Data 12/12/22 04:44 12/12/22 04:44 Micro: Microbiology 12/09/22 13:55 Blood Culture - Preliminary Blood Escherichia coli 12/11/22 04:25 Blood Culture - Preliminary Blood NEGATIVE TO DATE 12/11/22 04:25 Blood Culture - Preliminary Blood NEGATIVE TO DATE 12/09/22 12:58 Urine Culture - Final Urine,Clean Catch Escherichia coli A&P Assessment and plan (1) Leukocytosis: (2) Pyelonephritis of left kidney: (3) Atrial fibrillation with RVR: (4) Atrial fibrillation: Qualifiers: Atrial fibrillation type: paroxysmal Qualified Code(s): I48.0 - Paroxysmal atrial fibrillation (5) COPD (chronic obstructive pulmonary disease): Qualifiers: COPD type: unspecified COPD Qualified Code(s): J44.9 - Chronic obstructive pulmonary disease, unspecified (6) Dyslipidemia: (7) Diabetes mellitus with hyperglycemia, with long-term current use of insulin: (8) Situational anxiety: (9) DM neuropathy, painful: Qualifiers: Diabetes mellitus type: type 2 Diabetes mellitus complication detail: diabetic polyneuropathy Qualified Code(s): E11.42 - Type 2 diabetes mellitus with diabetic polyneuropathy (10) UTI (urinary tract infection): (11) Gram-negative bacteremia: (12) Nephrolithiasis: (13) Hydronephrosis due to obstruction of ureter: (14) Arrhythmia: (15) Leukocytosis: (16) UTI (urinary tract infection): Plan Left pyelonephritis, UTI -CT scan abdomen pelvis with contrast IMPRESSION: 1. ? There is bilateral pyelonephritis, worse on the left. 2. ? 3 mm calculus in the mid to distal left ureter with mild obstructive changes. renal US MPRESSION: 1. No hydronephrosis. 2. Enlargement of the LEFT kidney with loss of the corticomedullary junction. Consistent with history of pyelonephritis. Similar findings noted focally in the lower pole of the RIGHT kidney. 3. Cholelithiasis without acute cholecystitis. -Urine culture, blood culture showing E. coli -Broaden antibiotics to Zosyn Gram-negative bacteremia, E. coli, secondary to left pyelonephritis, UTI, on Zosyn, E. coli is resistant to fluoroquinolones, some penicillins, sensitive to Bactrim we will likely discharge on Bactrim A-fib with RVR -Currently on p.o. amiodarone,, crease metoprolol to 37.5 mg twice daily -Status post digoxin bolus, will avoid further bolus given creatinine up to 1.7 -Watch in CSU -cardiac echo Acute kidney injury, creatinine 1.6, start IV fluids, watch renal function closely Pseudohyponatremia, second hyperglycemia monitor Type 2 diabetes mellitus, decrease Lantus to 20 units at bedtime due to poor appetite, moderate dose sliding scale Nausea and vomiting, continue Zofran, monitor Serial EKGs, serial troponins, telemetry monitoring Plan for today follow repeat blood cultures, ensure repeat blood cultures are negative for 48 hours before discharge, creatinine down to 1.6 Attestations Medical Necessity Statement*: Patient requires hospitalization for E. coli bacteremia, pyelonephritis, ELVI, atrial fibrillation Diagnoses Leukocytosis D72.829 Pyelonephritis of left kidney N12 Atrial fibrillation with RVR I48.91 Atrial fibrillation I48.0 Atrial fibrillation type: paroxysmal COPD (chronic obstructive pulmonary disease) J44.9 COPD type: unspecified COPD Dyslipidemia E78.5 Diabetes mellitus with hyperglycemia, with long-term current use of insulin E11.65; Z79.4 Situational anxiety F41.8 DM neuropathy, painful E11.42 Diabetes mellitus type: type 2 Diabetes mellitus complication detail: diabetic polyneuropathy UTI (urinary tract infection) N39.0 Gram-negative bacteremia R78.81 Nephrolithiasis N20.0 Hydronephrosis due to obstruction of ureter N13.1 Arrhythmia I49.9
[2022-12-12 17:28] LABS: Glucose Point of Care 196 mg/dL (70-110)
[2022-12-12] MEDS: pantoprazole 40 mg SDV IVP (17:53)
[2022-12-12] MEDS: enoxaparin 40 mg/0.4 mL Syringe SUBCUT (17:53)
[2022-12-12 21:12] LABS: Glucose Point of Care 348 mg/dL (70-110)
[2022-12-12] MEDS: tizanidine 4 mg Tablet 2 MG PO (21:30)
[2022-12-12] MEDS: rivaroxaban 10 mg Tablet 20 MG PO (21:30)
[2022-12-12] MEDS: doxepin 10 mg Capsule PO (21:30)
[2022-12-12] MEDS: atorvastatin 40 mg Tablet 20 MG PO (21:31)
[2022-12-12] MEDS: insulin glargine 100 units/1 mL 30 UNIT SUBCUT (21:31)
[2022-12-13] VITALS (12 sets, daily range): BP systolic 122–138; BP diastolic 71–80; PULSE 70–105; RESP 16–20; TEMP 36.5–36.8; O2SAT 94–96
[2022-12-13] MEDS: piperacillin-tazobactam 3.375 GM in sodium chloride 0.9% (plus) 50 ML IV ×2 (03:39→09:25)
[2022-12-13 04:27] LABS: Basophils # 0.1 10^3/uL (0.0-0.1); Basophils % 0.8 %; Eosinophils # 0.3 10^3/uL (0.0-0.8); Eosinophils % 2.3 %; Hematocrit 36.1 % (36-47); Lymphocytes % 13.6 %; Mean Corpuscular HGB Conc 32.4 g/dL (30-55); Mean Corpuscular Volume 86.4 fl (85-98); Mean Platelet Volume 11.5 fL (7.4-10.4); Monocytes # 1.4 10^3/uL (0.2-0.9); Monocytes % 9.4 %; Neutrophils # 9.92 10^3/uL (1.8-7.7); Neutrophils % 66.4 %; Nucleated Red Blood Cells % 0 %; Platelet Count 333 10^3/cmm (157-399); Red Blood Count 4.18 10^6/uL (3.85-5.65); Red Cell Distribution Width 14.9 % (12.1-15.1); White Blood Count 14.93 10^3/uL (3.29-11.43)
[2022-12-13 04:44] LABS: Slide Review Slide Review Perform
[2022-12-13 04:59] LABS: NT Pro B Type Natriuretic Pept 4237 pg/mL (0-125); Procalcitonin 0.76 ng/mL (0-0.5)
[2022-12-13 05:10] LABS: Alanine Aminotransferase < 5 U/L (0-33); Albumin Level 2.4 g/dL (3.5-5.2); Alkaline Phosphatase 121 U/L (35-105); Anion Gap 13.8 (5-19); Aspartate Amino Transferase 5 U/L (0-32); Blood Urea Nitrogen 25 mg/dL (6-20); C Reactive Protein 117.8 mg/L (0.0-4.9); Calcium 7.9 mg/dL (8.5-10.5); Carbon Dioxide 24 mmol/L (22-29); Chloride 100 mmol/L (98-107); Globulin 3.3 g/dL (1.3-4.6); Glomerular Filtration Rate 56.9 mL/min (90-130); Glucose 331 mg/dL (65-115); Osmolality Calculated 295 mOsm/kg (285-295); Potassium 3.8 mmol/L (3.5-5.1); Sodium 134 mmol/L (136-145); Total Bilirubin 0.3 mg/dL (0.15-1.2); Total Protein 5.7 g/dL (6.6-8.7)
[2022-12-13] MEDS: metoprolol tartrate 25 mg Tablet 37.5 MG PO ×2 (06:41→17:24)
[2022-12-13 06:43] LABS: Glucose Point of Care 368 mg/dL (70-110)
[2022-12-13] MEDS: gabapentin 300 mg Capsule PO ×2 (09:25→22:23)
[2022-12-13] MEDS: insulin lispro 100 unit/1 mL SUBCUT ×3 (09:25→17:24)
[2022-12-13] MEDS: amiodarone 200 mg Tablet 400 MG PO ×2 (09:25→17:24)
[2022-12-13] MEDS: duloxetine 60 mg Capsule PO ×2 (09:25→22:23)
[2022-12-13 11:26] LABS: Glucose Point of Care 371 mg/dL (70-110)
--- NOTE | 2022-12-13 11:58 | XR_ITS ---
WS: [id number] XR chest 1V portable [id number] REASON FOR EXAM: PICC PLACEMENT FINDINGS: Right arm PICC line placement Right arm PICC line is in the distal SVC at the atrial level. Position is appropriate for use. IMPRESSION: Properly positioned right arm PICC line ready for use. PICC line was discussed with the diagnostic technologist over the phone confirming proper position 1:0 8 p.m. 12/13/2022.
--- NOTE | 2022-12-13 12:36 | PM.PN ---
Subjective Subjective: - Spoke to patient this morning, she is feeling well remains afebrile, no nausea, vomiting, -I discussed her urine and blood cultures, positive for E. coli, which has evidence of multidrug-resistant, she is allergic to Bactrim so unfortunate has not an option, and Cipro and Levaquin are not susceptible, given evidence of multidrug resistance, and that she has bacteremia she is going to need IV antibiotics, Rocephin for 14 days at least from negative blood cultures drawn on the -We will work on placement of PICC line, working on IV Rocephin, she is agreeable, Vitals/I&O/Wt Last Vital Signs Temp 98.0 F 12/13/22 11:56 Pulse 72 12/13/22 11:56 Resp 16 12/13/22 11:56 BP 138/80 12/13/22 11:56 Pulse Ox 95 12/13/22 11:56 O2 Del Method Room Air 12/13/22 11:56 O2 Flow Rate 2 12/11/22 20:22 12/12/22 12/13/22 12/13/22 22:59 06:59 14:59 Intake Total 880 / 1410 650 / 2060 50 / 50 Output Total 900 / 1900 620 / 620 Balance 880 / 410 -250 / 160 -570 / -570 Physical Exam Const: COMMON NORMALS: no acute distress and patient oriented x3 Resp: COMMON NORMALS: normal respiratory effort, No retractions, No use of accessory muscles and clear to auscultation bilaterally AUSCULTATION: clear to auscultation bilaterally Cardio: COMMON NORMALS: regular rate, regular rhythm, S1 normal heart sound present and S2 normal heart sound present RATE: regular rate RHYTHM: regular rhythm HEART SOUNDS: S1 normal heart sound present and S2 normal heart sound present GI: COMMON NORMALS: Normal to inspection, nondistended, normoactive bowel sounds present and non-tender Extremity: COMMON NORMALS: no pedal edema Neuro: COMMON NORMALS: patient oriented x3 Psych: COMMON NORMALS: mental status grossly normal Urinary Catheter Management: Mcdowell: Cath Placed During This Visit: yes Reason for Continuing Indwelling Catheter: Accurate Measurement of Urinary Output in Critically Ill Patients Urinary Catheter Date of Insertion: 12/10/22 Urinary Catheter Time of Insertion: 13:38 Data 12/13/22 04:16 12/13/22 04:16 Micro: Microbiology 12/09/22 13:55 Blood Culture - Preliminary Blood Escherichia coli A&P Assessment and plan (1) Leukocytosis: (2) Pyelonephritis of left kidney: (3) Atrial fibrillation with RVR: (4) Atrial fibrillation: Qualifiers: Atrial fibrillation type: paroxysmal Qualified Code(s): I48.0 - Paroxysmal atrial fibrillation (5) COPD (chronic obstructive pulmonary disease): Qualifiers: COPD type: unspecified COPD Qualified Code(s): J44.9 - Chronic obstructive pulmonary disease, unspecified (6) Dyslipidemia: (7) Diabetes mellitus with hyperglycemia, with long-term current use of insulin: (8) Situational anxiety: (9) DM neuropathy, painful: Qualifiers: Diabetes mellitus type: type 2 Diabetes mellitus complication detail: diabetic polyneuropathy Qualified Code(s): E11.42 - Type 2 diabetes mellitus with diabetic polyneuropathy (10) UTI (urinary tract infection): (11) Gram-negative bacteremia: (12) Nephrolithiasis: (13) Hydronephrosis due to obstruction of ureter: (14) Arrhythmia: (15) Leukocytosis: (16) UTI (urinary tract infection): Plan Left pyelonephritis, UTI -CT scan abdomen pelvis with contrast IMPRESSION: 1. ? There is bilateral pyelonephritis, worse on the left. 2. ? 3 mm calculus in the mid to distal left ureter with mild obstructive changes. renal US MPRESSION: 1. No hydronephrosis. 2. Enlargement of the LEFT kidney with loss of the corticomedullary junction. Consistent with history of pyelonephritis. Similar findings noted focally in the lower pole of the RIGHT kidney. 3. Cholelithiasis without acute cholecystitis. -Urine culture, blood culture showing E. coli, susceptible to cephalosporin -Switch to 1 g Rocephin every 24 hours, for 14 total days, starting 12/11/2022 Gram-negative bacteremia, E. coli, secondary to left pyelonephritis, UTI, on Zosyn, E. coli is resistant to fluoroquinolones, some penicillins, sensitive to Bactrim, has allergies to Bactrim due to bacteremia, antibiotic needs to achieve adequate blood concentration to treat bacteremia, only reasonable choice is IV Rocephin A-fib with RVR -On amiodarone 400 twice daily, continue metoprolol to 37.5 mg twice daily -Status post digoxin bolus, will avoid further bolus given creatinine up to 1.7 -Watch in CSU ? Continue Xarelto -cardiac echo ?Technically limited quality echocardiogram because of poor ?ultrasonic windows. ?Grossly LV systolic function is mildly reduced. ?Left atrial dilation ?Mild mitral regurgitation ?IVC is dilated ?Accuarte comparison with prior echocardiogram from 09/2022 not ?possible because of poor visualization but grossly LV systolic ?function has worsened and is mildly reduced now Acute kidney injury, creatinine 1.0, stop IV fluids Pseudohyponatremia, second hyperglycemia monitor Type 2 diabetes mellitus, decrease Lantus to 20 units at bedtime due to poor appetite, moderate dose sliding scale Nausea and vomiting, continue Zofran, monitor Serial EKGs, serial troponins, telemetry monitoring Plan for today Place PICC line if blood cultures are -48 hours, work on sitting up IV antibiotics as outpatient, continue PT OT, continue antibiotic therapy as inpatient Attestations Medical Necessity Statement*: Patient requires hospitalization for gram-negative bacteremia, E. coli left pyelonephritis UTI, A-fib Diagnoses Leukocytosis D72.829 Pyelonephritis of left kidney N12 Atrial fibrillation with RVR I48.91 Atrial fibrillation I48.0 Atrial fibrillation type: paroxysmal COPD (chronic obstructive pulmonary disease) J44.9 COPD type: unspecified COPD Dyslipidemia E78.5 Diabetes mellitus with hyperglycemia, with long-term current use of insulin E11.65; Z79.4 Situational anxiety F41.8 DM neuropathy, painful E11.42 Diabetes mellitus type: type 2 Diabetes mellitus complication detail: diabetic polyneuropathy UTI (urinary tract infection) N39.0 Gram-negative bacteremia R78.81 Nephrolithiasis N20.0 Hydronephrosis due to obstruction of ureter N13.1 Arrhythmia I49.9
[2022-12-13 16:40] LABS: Glucose Point of Care 186 mg/dL (70-110)
[2022-12-13] MEDS: pantoprazole 40 mg SDV IVP (17:24)
[2022-12-13] MEDS: insulin glargine 100 units/1 mL 30 UNIT SUBCUT (22:22)
[2022-12-13] MEDS: tizanidine 4 mg Tablet 2 MG PO (22:23)
[2022-12-13] MEDS: atorvastatin 40 mg Tablet 20 MG PO (22:23)
[2022-12-13] MEDS: rivaroxaban 10 mg Tablet 20 MG PO (22:23)
[2022-12-13] MEDS: doxepin 10 mg Capsule PO (22:23)
[2022-12-13 22:33] LABS: Glucose Point of Care 215 mg/dL (70-110)
[2022-12-14] VITALS: BP 121/64; PULSE 76; RESP 14; TEMP 37; O2SAT 92
[2022-12-14 04:00] VITALS: BP 142/92; PULSE 89; RESP 16; TEMP 36.6; O2SAT 96
[2022-12-14 04:00] LABS: Hematocrit 36.4 % (36-47); Mean Corpuscular HGB Conc 31.9 g/dL (30-55); Mean Corpuscular Hemoglobin 28.1 pg (27-33); Mean Corpuscular Volume 88.1 fl (85-98); Mean Platelet Volume 11.8 fL (7.4-10.4); Platelet Count 351 10^3/cmm (157-399); Red Blood Count 4.13 10^6/uL (3.85-5.65); Red Cell Distribution Width 15.2 % (12.1-15.1); White Blood Count 13.93 10^3/uL (3.29-11.43)
[2022-12-14 04:30] LABS: Slide Review Slide Review Perform
[2022-12-14 04:31] LABS: Absolute Eosinophils 0.7 10^3/cmm (0.0-0.7); Absolute Neutrophil 8.8 10^3/cmm (1.4-6.5); Absolute Segmented Neutrophil 8.8 10/cmm (1.6-7.1); Eosinophils 5 %; Lymphocytes 21 %; Lymphocytes Absolute 2.9 10^3/cmm (1.2-3.4); Monocytes Absolute 0.6 10^3/cmm (0.1-0.6); Platelet Estimate Normal (Normal); Segmented Neutrophils 63 %; Total Cells Counted 100 (0-100)
[2022-12-14 05:00] VITALS: PULSE 92
[2022-12-14 05:11] LABS: Alanine Aminotransferase < 5 U/L (0-33); Alkaline Phosphatase 99 U/L (35-105); Aspartate Amino Transferase 6 U/L (0-32); Blood Urea Nitrogen 17 mg/dL (6-20); Calcium 7.9 mg/dL (8.5-10.5); Carbon Dioxide 24 mmol/L (22-29); Chloride 101 mmol/L (98-107); Glomerular Filtration Rate 85.9 mL/min (90-130); Glucose 235 mg/dL (65-115); Osmolality Calculated 285 mOsm/kg (285-295); Sodium 133 mmol/L (136-145); Total Bilirubin 0.4 mg/dL (0.15-1.2)
[2022-12-14 05:16] LABS: Anion Gap 11.8 (5-19); Potassium 3.8 mmol/L (3.5-5.1)
[2022-12-14] MEDS: metoprolol tartrate 25 mg Tablet 37.5 MG PO (06:39)
[2022-12-14] MEDS: cefTRIAXone 1,000 MG in sodium chloride 0.9% (plus) 50 ML 100 MG IV (06:39)
[2022-12-14 07:50] VITALS: BP 137/79; PULSE 72; RESP 14; TEMP 36.4; O2SAT 96
[2022-12-14 07:54] VITALS: PULSE 92; RESP 16; O2SAT 96
[2022-12-14] MEDS: duloxetine 60 mg Capsule PO (09:23)
[2022-12-14] MEDS: gabapentin 300 mg Capsule PO (09:23)
[2022-12-14] MEDS: insulin lispro 100 unit/1 mL SUBCUT (09:23)
[2022-12-14] MEDS: amiodarone 200 mg Tablet 400 MG PO (09:23)
--- NOTE | 2022-12-14 11:06 | PM.DCS ---
Discharge Providers Date of Admission: 12/09/22 15:20 Date of Discharge: December 14, 2022 Attending Provider at Admission: Ji Chung MD Attending Provider at Discharge: Ji Chung MD Primary Care Provider: RICHARD Flores Diagnoses at Discharge Discharge Diagnosis (1) Leukocytosis: Status: Acute (2) Pyelonephritis of left kidney: Status: Acute (3) Atrial fibrillation with RVR: Status: Acute (4) Atrial fibrillation: Status: Chronic Qualifiers: Atrial fibrillation type: paroxysmal Qualified Code(s): I48.0 - Paroxysmal atrial fibrillation (5) COPD (chronic obstructive pulmonary disease): Status: Chronic Qualifiers: COPD type: unspecified COPD Qualified Code(s): J44.9 - Chronic obstructive pulmonary disease, unspecified (6) Dyslipidemia: Status: Chronic (7) Diabetes mellitus with hyperglycemia, with long-term current use of insulin: Status: Chronic (8) Situational anxiety: Status: Acute (9) DM neuropathy, painful: Status: Chronic Qualifiers: Diabetes mellitus type: type 2 Diabetes mellitus complication detail: diabetic polyneuropathy Qualified Code(s): E11.42 - Type 2 diabetes mellitus with diabetic polyneuropathy (10) UTI (urinary tract infection): Status: Acute (11) Gram-negative bacteremia: Status: Acute (12) Nephrolithiasis: Status: Acute (13) Hydronephrosis due to obstruction of ureter: Status: Acute (14) Arrhythmia: Status: Acute Reason for Visit Reason for Visit: weakness x4 days Hospital Course Hospital Course Soni Head is a 57 year old female with a past medical history of atrial fibrillation on Eliquis, type 2 diabetes mellitus, chronic Foot pain, Charcot foot, polyneuropathy, currently in a cam boot who presents [facility] as she has been not feeling well for the last few days, nausea, vomiting, poor appetite, she tells me for the last 72 hours overall she has been able to consume is water and Sprite, she reports left flank pain, with dysuria, with nausea, denies any diarrhea, in the emergency room, she was diagnosed with UTI, white blood cell count 19,000, start Rocephin, A-fib with RVR, started on amiodarone drip Patient presented to [facility] for left pyelonephritis, UTI, with E. coli bacteremia, received IV antibiotics, overall clinically improved, initial CT scan showed a 3 mm colliculi in the left distal ureter with mild obstructive changes, repeat renal ultrasound showed passage of the stone, overall patient clinically improved, given evidence of multidrug-resistant E. coli patient was discharged on IV Rocephin 1 g every 24 hours, through outpatient GI lab, for 11 remaining days, stop date 12/25/2022. So far repeat blood cultures have no growth. Patient have A-fib with RVR during the hospitalization, requiring amiodarone drip, requiring digoxin, overall clinically improved, heart rates well controlled, discharge, Toprol 37.5 mg twice daily, amiodarone 200 mg twice daily with taper down to 200 mg once daily with follow-up cardiology as outpatient. She also had ELVI during the hospitalization, improved with IV fluids. For her elevated blood sugars, type 2 diabetes mellitus, discharged on Lantus 40 units at bedtime and a NovoLog sliding scale, follow-up with primary care provider as outpatient. Physical Exam Const: COMMON NORMALS: no acute distress and patient oriented x3 Resp: COMMON NORMALS: normal respiratory effort, No retractions, No use of accessory muscles and clear to auscultation bilaterally AUSCULTATION: clear to auscultation bilaterally Cardio: COMMON NORMALS: regular rate, regular rhythm, S1 normal heart sound present and S2 normal heart sound present RATE: regular rate RHYTHM: regular rhythm HEART SOUNDS: S1 normal heart sound present and S2 normal heart sound present GI: COMMON NORMALS: Normal to inspection, nondistended, normoactive bowel sounds present and non-tender Extremity: COMMON NORMALS: no pedal edema Neuro: COMMON NORMALS: patient oriented x3 Psych: COMMON NORMALS: mental status grossly normal Urinary Catheter Management: Mcdowell: Cath Placed During This Visit: yes, but has since been removed by the nurse Reason for Continuing Indwelling Catheter: Decision to DC Catheter Urinary Catheter Date of Insertion: 12/10/22 Urinary Catheter Time of Insertion: 13:38 Date Urinary Catheter Removed: 12/13/22 Time Urinary Catheter Discontinued: 14:15 Discharge Data Studies Completed and Pending Completed Studies During Hospitalization Category Date Time Status CT abdomen pelvis w con* [id number] Stat Cat Scan 12/09/22 17:03 Completed CXRP [XR chest 1V portable [id number]] Routine Exams 12/13/22 11:58 Completed CV. echo complete* [id number] Routine Ultrasound 12/11/22 18:33 Completed US renal BI* 27000 Stat Ultrasound 12/10/22 09:03 Completed Pending at discharge Category Date Time Status Blood Culture AM LABS Lab 12/11/22 04:25 Results Blood Culture Stat Lab 12/09/22 13:58 Results Complete Blood Count w/Auto AM LABS Lab 12/15/22 04:00 Ordered Comprehensive Metabolic Panel AM LABS Lab 12/15/22 04:00 Ordered Radiology Impressions Abdomen/Pelvis CT 12/09/22 17:03 IMPRESSION: 1. There is bilateral pyelonephritis, worse on the left. 2. 3 mm calculus in the mid to distal left ureter with mild obstructive changes. ADDENDUM: 12/09/221923 CRITICAL RESULT: The study was personally discussed on the telephone with Evelina Rubalcava on 12/09/2022 7:22 PM CDT. The results were understood and acknowledged. Laboratory Results WBC 13.93 10^3/uL (3.29-11.43) H 12/14/22 03:24 RBC 4.13 10^6/uL (3.85-5.65) 12/14/22 03:24 Hgb 11.60 g/dL (11.27-16.99) 12/14/22 03:24 Hct 36.4 % (36-47) 12/14/22 03:24 MCV 88.1 fl (85-98) 12/14/22 03:24 MCH 28.1 pg (27-33) 12/14/22 03:24 MCHC 31.9 g/dL (30-55) 12/14/22 03:24 RDW 15.2 % (12.1-15.1) H 12/14/22 03:24 Plt Count 351 10^3/cmm (157-399) 12/14/22 03:24 MPV 11.8 fL (7.4-10.4) H 12/14/22 03:24 Neut % (Auto) 66.4 % 12/13/22 04:16 Lymph % (Auto) 13.6 % 12/13/22 04:16 Mcdonough % (Auto) 9.4 % 12/13/22 04:16 Eos % (Auto) 2.3 % 12/13/22 04:16 Baso % (Auto) 0.8 % 12/13/22 04:16 Neut # (Auto) 9.92 10^3/uL (1.8-7.7) H 12/13/22 04:16 Lymph # (Auto) 2.0 10^3/uL (0.8-4.8) 12/13/22 04:16 Mcdonough # (Auto) 1.4 10^3/uL (0.2-0.9) H 12/13/22 04:16 Eos # (Auto) 0.3 10^3/uL (0.0-0.8) 12/13/22 04:16 Baso # (Auto) 0.1 10^3/uL (0.0-0.1) 12/13/22 04:16 Nucleated RBC % (auto) 0 % 12/13/22 04:16 Total Counted 100 (0-100) 12/14/22 03:24 Atypical Lymphs % 0.0 % (0-5) 12/14/22 03:24 Absolute Neutrophils 8.8 10^3/cmm (1.4-6.5) H 12/14/22 03:24 Segmented Neutrophils 63 % 12/14/22 03:24 Abs Segm Neuts (Man) 8.8 10/cmm (1.6-7.1) H 12/14/22 03:24 Band Neutrophils 0.0 % 12/14/22 03:24 Abs Band Neuts (Man) 0.0 10^3/cmm (0.0-1.2) 12/14/22 03:24 Absolute Lymphocytes 2.9 10^3/cmm (1.2-3.4) 12/14/22 03:24 Lymphocytes (Manual) 21 % 12/14/22 03:24 Monocytes (Manual) 4.0 % 12/14/22 03:24 Absolute Monocytes 0.6 10^3/cmm (0.1-0.6) 12/14/22 03:24 Eosinophils (Manual) 5 % 12/14/22 03:24 Absolute Eosinophils 0.7 10^3/cmm (0.0-0.7) 12/14/22 03:24 Basophils (Manual) 0.0 % 12/14/22 03:24 Absolute Basophils 0.0 10^3/cmm (0.0-0.2) 12/14/22 03:24 Metamyelocytes 5.0 % 12/14/22 03:24 Myelocytes 2.0 % 12/14/22 03:24 Nucleated RBCs # 0.0 /100WBC 12/13/22 04:16 Platelet Estimate Normal (Normal) 12/14/22 03:24 Sodium 133 mmol/L (136-145) L 12/14/22 04:35 Potassium 3.8 mmol/L (3.5-5.1) 12/14/22 04:35 Chloride 101 mmol/L (98-107) 12/14/22 04:35 Carbon Dioxide 24 mmol/L (22-29) 12/14/22 04:35 Anion Gap 11.8 (5-19) 12/14/22 04:35 BUN 17 mg/dL (6-20) 12/14/22 04:35 Creatinine 0.7 mg/dL (0.5-0.9) 12/14/22 04:35 GFR Calculation 85.9 mL/min (90-130) L 12/14/22 04:35 Glucose 235 mg/dL (65-115) H 12/14/22 04:35 POC Glucose 215 mg/dL (70-110) H 12/13/22 22:22 Estimat Average Glucose 306 12/10/22 04:28 Hemoglobin A1c 12.3 % (4.0-6.0) H 12/10/22 04:28 Calculated Osmolality 285 mOsm/kg (285-295) 12/14/22 04:35 Lactic Acid 1.6 mmol/L (0.5-2.2) 12/09/22 11:52 Calcium 7.9 mg/dL (8.5-10.5) L 12/14/22 04:35 Phosphorus 3.0 mg/dL (2.5-4.5) 12/12/22 04:44 Magnesium 2.2 mg/dL (1.7-2.3) 12/12/22 04:44 Total Bilirubin 0.4 mg/dL (0.15-1.2) 12/14/22 04:35 AST 6 U/L (0-32) 12/14/22 04:35 ALT < 5 U/L (0-33) 12/14/22 04:35 Alkaline Phosphatase 99 U/L (35-105) 12/14/22 04:35 Troponin T Gen 5 ng/L 8 ng/L (0-10) 12/09/22 11:52 Troponin T Baseline 8 ng/L (0-10) 12/09/22 17:28 Troponin T 120 Minute 8.04 ng/L (0-10) 12/09/22 19:23 Delta Troponin T 0.04 ABS# (0-10) 12/09/22 19:23 Troponin T Hi Sens 6Hr 10.60 ng/L (0-10) H 12/09/22 23:25 Troponin T Hi Sens 6Hr Delta 2.60 ng/L (0-12) 12/09/22 23:25 C-Reactive Protein 117.8 mg/L (0.0-4.9) H 12/13/22 04:16 NT-Pro-B Natriuret Pep 4237 pg/mL (0-125) H 12/13/22 04:16 Total Protein 6.0 g/dL (6.6-8.7) L 12/14/22 04:35 Albumin 2.0 g/dL (3.5-5.2) L 12/14/22 04:35 Globulin 4.0 g/dL (1.3-4.6) 12/14/22 04:35 Triglycerides 249 mg/dL (0-150) H 12/10/22 04:28 Cholesterol 103 mg/dL (0-200) 12/10/22 04:28 LDL Cholesterol, Calc 41 mg/dL (50-129) L 12/10/22 04:28 HDL Cholesterol 12 mg/dL (60-100) L 12/10/22 04:28 LDL/HDL Ratio 3.42 RATIO (0.00-3.22) H 12/10/22 04:28 Cholesterol/HDL Ratio 8.58 mg/dL (0.0-4.40) H 12/10/22 04:28 Procalcitonin 0.76 ng/mL (0-0.5) H 12/13/22 04:16 TSH 1.54 uIU/mL (0.27-4.20) 12/10/22 04:28 Urine Color Yellow (Yellow) 12/09/22 12:58 Urine Appearance Cloudy (CLEAR) A 12/09/22 12:58 Urine pH 5 (5-7) 12/09/22 12:58 Ur Specific [place] 1.015 (1.005-1.030) 12/09/22 12:58 Urine Protein 1+ (Negative) H 12/09/22 12:58 Urine Glucose (UA) 4+ (Normal) H 12/09/22 12:58 Urine Ketones 1+ (Negative) H 12/09/22 12:58 Urine Blood 3+ (Negative) H 12/09/22 12:58 Urine Nitrate Negative (Negative) 12/09/22 12:58 Urine Bilirubin Neg (Negative) 12/09/22 12:58 Urine Urobilinogen 4 mg/dL (Negative) H 12/09/22 12:58 Ur Leukocyte Esterase 2+ (Negative) H 12/09/22 12:58 Urine RBC 10-15 /hpf (0-2) H 12/09/22 12:58 Urine WBC 15-25 /hpf (0-5) H 12/09/22 12:58 Ur Squamous Epith Cells 5-10 /hpf (0-5) H 12/09/22 12:58 Amorphous Sediment Not Reportable 12/09/22 12:58 Urine Bacteria 3+ /hpf (NONE) H 12/09/22 12:58 Vitals Last Vital Signs Temp 97.5 F L 12/14/22 07:50 Pulse 92 12/14/22 07:54 Resp 16 12/14/22 07:54 BP 137/79 12/14/22 07:50 Pulse Ox 96 12/14/22 07:54 O2 Del Method Room Air 12/14/22 07:54 O2 Flow Rate 2 12/11/22 20:22 Discharge Plan Discharge Patient Disposition: Home Condition: Stable Prescriptions: New amiodarone [Pacerone] 200 mg Tablet See Rx Instructions .ROUTE .COMPLEX Qty: 45 0RF Rx Instructions: 200 mg twice daily for 15 days then decrease to 200 mg once daily ceftriaxone 1 gram recon soln 1 g IV DAILY 11 Days Qty: 11 0RF Rx Instructions: stop date 12/25/2022 insulin aspart U-100 [Novolog FlexPen U-100 Insulin] 100 unit/mL (3 mL) insulin pen See Rx Instructions .ROUTE .COMPLEX MDD 30 Qty: 15 0RF Rx Instructions: Inject, subcut, 3 times daily, after meals, based on sliding scale provided Continued (DME) Diabetic Shoes with 3 Pairs of Inserts See Rx Instructions .Route .MEDSUPPLY Qty: 1 0RF Rx Instructions: As directed by HOME ([facility]) Diabetic shoes with 3 sets of inserts See Rx Instructions .Route .MEDSUPPLY Qty: 1 0RF Rx Instructions: As directed by [facility] Lasix 20 mg tablet 20 mg PO QAM PRN (Reason: Edema) Qty: 30 2RF tizanidine 2 mg tablet 2 mg PO BEDTIME@22 Qty: 30 2RF Xarelto 20 mg tablet 20 mg PO BEDTIME@22 Qty: 30 2RF gabapentin 300 mg capsule 300 mg PO BID@ Qty: 60 2RF doxepin 10 mg capsule 10 mg PO BEDTIME@22 Qty: 30 2RF Trulicity 0.75 mg/0.5 mL pen injector 0.75 mg SUBCUT .weekly Qty: 1 2RF Rx Instructions: (pt states not covered by insurance 12/09/22) ([facility]) blood-glucose meter Misc See Rx Instructions .Route Qty: 1 0RF Rx Instructions: As directed ([facility]) Blood Glucose Test Strip See Rx Instructions .Route Qty: 100 3RF Rx Instructions: once daily ([facility]) lancets Misc See Rx Instructions .Route Qty: 100 3RF Rx Instructions: once daily ([facility]) 12 pairs of diabetic socks See Rx Instructions .Route .MEDSUPPLY Qty: 1 0RF Rx Instructions: As directed by [facility]Mariaelena ([facility]) Diabetic Shoes with 3 pairs of inserts- build up to the right See Rx Instructions .Route .MEDSUPPLY Qty: 1 0RF Rx Instructions: As directed by [facility] duloxetine 60 mg capsule,delayed release(DR/EC) 60 mg PO BID@ Qty: 60 2RF loperamide [Anti-Diarrheal (loperamide)] 2 mg Tablet 2 - 4 mg PO BID PRN (Reason: Diarrhea) acetaminophen [Tylenol Extra Strength] 500 mg Tablet 1,000 mg PO BID@ trolamine salicylate [Aspercreme] 10 % Cream 1 applic TOPICAL TID PRN (Reason: Pain) albuterol sulfate 90 mcg/actuation Hfa Aerosol Inhaler 2 puff INHALATION QID PRN (Reason: Shortness Of Breath) nitroglycerin [Nitrostat] 0.4 mg Tablet, Sublingual 0.4 mg SUBLINGUAL Q5M PRN (Reason: Chest Pain) Rx Instructions: do not exceed 3 doses per episode levocetirizine 5 mg Tablet 5 mg PO BEDTIME@22 ascorbate calcium (vitamin C) [Charmaine-C] 500 mg Tablet 1,000 mg PO BEDTIME atorvastatin 20 mg tablet 20 mg PO BEDTIME@22 Changed insulin detemir U-100 100 unit/mL (3 mL) insulin pen 40 unit SUBCUT BEDTIME@22 Qty: 18 2RF metoprolol tartrate 25 mg tablet 37.5 mg PO Q12H 30 Days Qty: 90 3RF Discontinued diltiazem HCl 240 mg Capsule,Extended Release 24hr 240 mg PO DAILY@10 Qty: 90 0RF benzonatate 200 mg capsule 200 mg PO BID Discharge Orders: Discharge Order (Routine); Ordered 12/14/22 Ordered By: Ji Chung Other Ambulatory Orders: Miscellaneous Procedure (Order) Location: None Selected Ordered By: Ji Chung Referrals: Outpatient IV Antibiotics at [facility] [Other] (You will need to come in to the hospital to get IV Rocephin daily for 11 more days, at 1030 each day. On Friday you will need to register in the ER & then you can drive around to the Surgical entrance to [place]. You will enter into the Surgical entrance & will get your IV infusion there at Outpt surgery. Medicaid rides have been setup through [phone], to pick you up between 8:30-9:00 for appt at 1030 & they will pick you up at the hospital at 11:15 to take back home, daily, starting 12/15-12/25. ) Ángel Vance, VOCATIONAL GUIDANCE COUNSELOR-C [Primary Care Provider] - 1-3 days Santo Hinojosa M.D [Physician] - 2 weeks Emperatriz Samuels MD [Hospitalist] - 1 month Discharge Diet: Cardiac Discharge Activity: Resume usual activity Patient Instructions: Metoprolol (By mouth) (Lopressor, Toprol XL), Amiodarone (By mouth) (Cordarone, Pacerone), Ceftriaxone (By injection) (Rocephin, Novaplus cefTRIAXone,..., Insulin Aspart, Recombinant (By injection) (Novolog, Novolog..., Opioid Safety Activity Restrictions/Additional Instructions: -Inject Levemir 40 units at bedtime -Please monitor your blood sugars closely -Monitor your blood sugars 3 times daily as after meals -Please record your blood sugars, and a blood sugar log -For your NovoLog -Please inject blood sugar after meals based on sliding scale provided -Do not inject insulin if you do not eat as hypoglycemia kills -This is a NovoLog sliding scale -Insulin sliding ?fingerstick? Insulin ?141-180?0 units/sq 181-220?2 units/sq ?221-260?4 units/sq ?261-300 6 units/sq ?301-350?8 units/sq ?351-400 10 units/sq ?401-450?12 units/sq >450? 14units/sq -If your blood sugar is greater than 500 go to the emergency room -If your blood sugar is less than 60 or at anytime you feel lightheaded or dizzy or diaphoretic or have chest palpitations check your blood sugar, and eat a hard candy or drink orange juice and go immediately to the emergency room -Remember hypoglycemia kills, so if his blood sugar is less than 60 we have to increase it by taking in a sugary meal such as a hard candy or orange juice and go to the emergency room -If you have any questions please call us where here to help -For your Rocephin, please come through outpatient GI lab, to get IV Rocephin, 1 g IV every 24 hours, for 11 more days, stop date is 12/25/2022 -Please follow-up with infectious disease in 3 to 4 weeks -Please follow-up cardiology in 2 to 4 weeks -Please remove PICC line after 12/25/2022 Discharge Attestations Time Spent in Discharge Care*: greater than 30 min Quality Metrics Clinical Quality Measures [ No reported AMI, CVA or VTE this stay] Coding Level of Care Code 41872 Total time (in minutes) for Discharge: 45 Diagnoses Leukocytosis D72.829 Pyelonephritis of left kidney N12 Atrial fibrillation with RVR I48.91 Atrial fibrillation I48.0 Atrial fibrillation type: paroxysmal COPD (chronic obstructive pulmonary disease) J44.9 COPD type: unspecified COPD Dyslipidemia E78.5 Diabetes mellitus with hyperglycemia, with long-term current use of insulin E11.65; Z79.4 Situational anxiety F41.8 DM neuropathy, painful E11.42 Diabetes mellitus type: type 2 Diabetes mellitus complication detail: diabetic polyneuropathy UTI (urinary tract infection) N39.0 Gram-negative bacteremia R78.81 Nephrolithiasis N20.0 Hydronephrosis due to obstruction of ureter N13.1 Arrhythmia I49.9
[2022-12-14 11:40] VITALS: PULSE 92; RESP 16; O2SAT 96
[2022-12-14 17:30] LABS: Glucose Point of Care 243 mg/dL (70-110)
== END 2022-12-14 11:41 | disposition home or self-care (01) | DRG 690 ==
LOC: ER 12:20 → CSU 15:47
PROVIDERS: Admitting Provider Family Medicine; Emergency Provider Family Medicine; PCP Nurse Practitioner; Visit Provider Family Medicine
DX: N12 Tubulo-interstitial nephritis, not specified as acute or chronic (principal); Z16.23 Resistance to quinolones and fluoroquinolones; Z16.11 Resistance to penicillins; N20.1 Calculus of ureter; N39.0 Urinary tract infection, site not specified; N17.9 Acute kidney failure, unspecified; B96.20 Unspecified Escherichia coli [E. coli] as the cause of diseases classified elsewhere; I48.0 Paroxysmal atrial fibrillation; E11.610 Type 2 diabetes mellitus with diabetic neuropathic arthropathy; E11.65 Type 2 diabetes mellitus with hyperglycemia; E11.42 Type 2 diabetes mellitus with diabetic polyneuropathy; Z79.01 Long term (current) use of anticoagulants; Z79.85 Long-term (current) use of injectable non-insulin antidiabetic drugs; G89.29 Other chronic pain; Z85.3 Personal history of malignant neoplasm of breast; J44.9 Chronic obstructive pulmonary disease, unspecified; E78.5 Hyperlipidemia, unspecified; K21.9 Gastro-esophageal reflux disease without esophagitis; Z89.411 Acquired absence of right great toe; Z90.13 Acquired absence of bilateral breasts and nipples; F41.8 Other specified anxiety disorders; F17.210 Nicotine dependence, cigarettes, uncomplicated
CPT/HCPCS: 36415; 36416; 36573; 36592; 51702; 71045; 74177; 76770; 80048; 80053; 80061; 81001; 82962; 83036; 83605; 83735; 83880; 84100; 84145; 84443; 84484; 85007; 85025; 86140; 87040; 87077; 87086; 87186; 87205; 93005; 93306; 94664; 96365; 96367; 96372; 96375; 96376; 97116; 97161; 97165; 97530; 97535; 99285; C9113; J0282; J0696; J1160; J1650; J1815; J2405; J2543; J3490; J7030; J7060; Q9967

== ENCOUNTER 2022-12-21 10:30 | Outpatient (RCR) | payer MEDICAID, SELFPAY ==
[2022-12-15 10:44] VITALS: BP 105/72; PULSE 118; RESP 18; TEMP 36.1; O2SAT 95
[2022-12-15] MEDS: cefTRIAXone 1,000 MG in sodium chloride 0.9% (plus) 50 ML 100 MG IV (10:46)
[2022-12-16 10:30] VITALS: BP 157/81; PULSE 102; RESP 18; TEMP 36.3; O2SAT 98
[2022-12-16] MEDS: cefTRIAXone 1,000 MG in sodium chloride 0.9% (plus) 50 ML 100 MG IV (10:30)
[2022-12-17] MEDS: cefTRIAXone 1,000 MG in sodium chloride 0.9% (plus) 50 ML 100 MG IV (10:37)
[2022-12-17 10:43] VITALS: BP 136/85; PULSE 108; RESP 18; TEMP 36.3; O2SAT 99
[2022-12-18] MEDS: cefTRIAXone 1,000 MG in sodium chloride 0.9% (plus) 50 ML 100 MG IV (10:46)
[2022-12-18 10:48] VITALS: BP 125/73; PULSE 79; RESP 18; TEMP 36.4; O2SAT 98
[2022-12-19] MEDS: cefTRIAXone 1,000 MG in sodium chloride 0.9% (plus) 50 ML 100 MG IV (10:30)
[2022-12-19 10:35] VITALS: BP 132/88; PULSE 114; RESP 18; TEMP 36.1; O2SAT 96
[2022-12-20] MEDS: cefTRIAXone 1,000 MG in sodium chloride 0.9% (plus) 50 ML 100 MG IV (10:28)
[2022-12-20 10:30] VITALS: BP 143/92; PULSE 83; RESP 18; TEMP 36.4; O2SAT 97
[2022-12-21] MEDS: cefTRIAXone 1,000 MG in sodium chloride 0.9% (plus) 50 ML 100 MG IV (10:41)
[2022-12-21 10:57] VITALS: BP 159/98; PULSE 99; RESP 18; TEMP 36.4; O2SAT 96
== END 2022-12-21 23:59 | disposition home or self-care (01) ==
LOC: GILAB 10:30
PROVIDERS: PCP Nurse Practitioner; Visit Provider Family Medicine
DX: R78.81 Bacteremia (principal)
CPT/HCPCS: 96365; J0696

== ENCOUNTER 2022-12-26 10:30 | Outpatient (RCR) | payer MEDICAID, SELFPAY ==
[2022-12-22 10:17] VITALS: BP 136/87; PULSE 80; RESP 17; TEMP 36.4; O2SAT 97
[2022-12-22 10:20] VITALS: BP 136/87; PULSE 80; RESP 17; TEMP 36.4; O2SAT 97
[2022-12-22] MEDS: cefTRIAXone 1,000 MG in sodium chloride 0.9% (plus) 50 ML 100 MG IV (10:20)
[2022-12-23] MEDS: cefTRIAXone 1,000 MG in sodium chloride 0.9% (plus) 50 ML 100 MG IV (10:34)
[2022-12-23 10:38] VITALS: BP 130/84; PULSE 101; RESP 17; TEMP 36.3; O2SAT 94
[2022-12-24] MEDS: cefTRIAXone 1,000 MG in sodium chloride 0.9% (plus) 50 ML 100 MG IV (10:26)
[2022-12-24 10:31] VITALS: BP 110/85; PULSE 99; RESP 18; TEMP 36.6; O2SAT 95
[2022-12-25] MEDS: cefTRIAXone 1,000 MG in sodium chloride 0.9% (plus) 50 ML 100 MG IV (10:30)
[2022-12-25 10:40] VITALS: BP 123/71; PULSE 67; RESP 18; TEMP 36.2; O2SAT 97
[2022-12-26] MEDS: cefTRIAXone 1,000 MG in sodium chloride 0.9% (plus) 50 ML 100 MG IV (10:23)
[2022-12-26 10:24] VITALS: BP 109/70; PULSE 100; RESP 18; TEMP 36.4; O2SAT 97
--- NOTE | 2022-12-26 11:00 | PC.NURSE ---
Pt received last dose of Ceftriaxone 1 gm IVPB via PICC. Orders to remove PICC after last dose. PICC to right upper arm removed, tip intact. Pressure held until hemostasis obtained. Site without redness, drainage, swelling, or bleeding noted. Pt instructed to contact PCP for signs of infection and to return to ED for SOB or difficulty breathing.
== END 2023-01-21 23:59 | disposition home or self-care (01) ==
LOC: GILAB 10:30
PROVIDERS: PCP Nurse Practitioner; Visit Provider Family Medicine
DX: R78.81 Bacteremia (principal)
CPT/HCPCS: 96365; J0696

== ENCOUNTER → 2023-01-27 12:44 | Outpatient (BNVA) | payer MEDICAID, SELFPAY | PROVIDERS: PCP Nurse Practitioner; Visit Provider Podiatrist Foot & Ankle Surgery | DX: E11.610 Type 2 diabetes mellitus with diabetic neuropathic arthropathy; E11.42 Type 2 diabetes mellitus with diabetic polyneuropathy; Z79.4 Long term (current) use of insulin | CPT/HCPCS: 73630; 99213 ==

== ENCOUNTER → 2023-02-11 15:01 | Outpatient (BNVA) | payer MEDICAID, SELFPAY | PROVIDERS: PCP Nurse Practitioner; Visit Provider Orthopaedic Surgery | DX: M47.12 Other spondylosis with myelopathy, cervical region (principal) | CPT/HCPCS: 99213 ==

== ENCOUNTER → 2023-04-15 09:58 | Outpatient (BNVA) | payer MEDICAID, SELFPAY | PROVIDERS: PCP Nurse Practitioner; Visit Provider Nurse Practitioner Family | DX: R30.0 Dysuria (principal); E11.65 Type 2 diabetes mellitus with hyperglycemia; Z79.4 Long term (current) use of insulin | CPT/HCPCS: 81003; 87077; 87086; 87184 ==

== ENCOUNTER 2023-04-23 11:06 | Outpatient (CLI) | payer OTHER, SELFPAY ==
--- NOTE | 2023-04-23 11:20 | XR_ITS ---
WS: [id number] Right hand, 2 views, 04/23/2023 Clinical Data: OSTEOARTHRITIS RT HAND Comparison: None. Findings: No fractures or dislocations are seen. The soft tissues are unremarkable. The joint space s are normal No periarticular demineralization or calcifications are seen. Impression: Negative right hand.
--- NOTE | 2023-04-23 11:20 | XR_ITS ---
WS: [id number] Right hip, AP and frog-leg views, 04/23/2023 Clinical Data: OSTEOARTHRITIS RT HIP Comparison: None. Findings: No fractures or dislocations are seen. The right hip shows no erosion, sclerosis or cystic change of the right femoral head. There is a large acetabular spur. There is a small spur of the medial inferio r aspect of the right femoral head. The adjacent pelvis is unremarkable. The soft tissues are normal. Impression: Mild osteoarthritis of the right hip. Tonnis classification: grade 1: sclerosis of femoral head and acetabulum or slight joint space narrow ing or slight lipping at joint margins
--- NOTE | 2023-04-23 11:20 | XR_ITS ---
WS: [email or web address] Left knee, AP and lateral views, 04/23/2023 Clinical Data: OSTEOARTHRITIS LT KNEE Comparison: None. Findings: No fractures or dislocations are seen. The medial joint compartment shows narrowing with sclerosis of the medial tibial plateau at the articular surface. There is a spur of the lateral femoral condyle. The left patella shows posterior spurring and anterior sclerosis. The soft tissues are unremarkable. Impression: Minimal osteoarthritis of the left knee. Kellgren-Og Classification: grade 2 (minimal): definite osteophytes and possible joint space na rrowing
== END 2023-04-23 11:07 | disposition home or self-care (01) ==
LOC: RAD 11:07
PROVIDERS: PCP Nurse Practitioner; Visit Provider Dermatology
DX: Z02.71 Encounter for disability determination (principal); M25.762 Osteophyte, left knee; M76.52 Patellar tendinitis, left knee; M19.041 Primary osteoarthritis, right hand; M17.12 Unilateral primary osteoarthritis, left knee; M16.11 Unilateral primary osteoarthritis, right hip
CPT/HCPCS: 73120; 73502; 73560

== ENCOUNTER → 2023-05-06 14:38 | Outpatient (BNVA) | payer MEDICAID, SELFPAY | PROVIDERS: PCP Nurse Practitioner; Visit Provider Nurse Practitioner | DX: E11.65 Type 2 diabetes mellitus with hyperglycemia (principal); Z79.4 Long term (current) use of insulin | CPT/HCPCS: 80053; 80061; 83036; 84443; 85025 ==

== ENCOUNTER → 2023-05-14 10:58 | Outpatient (BNVA) | payer MEDICAID, SELFPAY | PROVIDERS: PCP Nurse Practitioner; Visit Provider Internal Medicine Cardiovascular Disease | DX: I48.0 Paroxysmal atrial fibrillation (principal); F17.200 Nicotine dependence, unspecified, uncomplicated; I10 Essential (primary) hypertension; E78.5 Hyperlipidemia, unspecified; Z79.01 Long term (current) use of anticoagulants | CPT/HCPCS: 99214 ==

== ENCOUNTER → 2023-05-16 10:29 | Outpatient (BNVA) | payer MEDICAID, SELFPAY | PROVIDERS: PCP Nurse Practitioner; Visit Provider Nurse Practitioner Family | DX: E11.65 Type 2 diabetes mellitus with hyperglycemia (principal); Z79.4 Long term (current) use of insulin; R31.9 Hematuria, unspecified | CPT/HCPCS: 81000 ==

== ENCOUNTER → 2023-05-26 09:19 | Outpatient (BNVA) | payer MEDICAID, SELFPAY | PROVIDERS: PCP Nurse Practitioner; Visit Provider Podiatrist Foot & Ankle Surgery | DX: E11.610 Type 2 diabetes mellitus with diabetic neuropathic arthropathy (principal); E11.42 Type 2 diabetes mellitus with diabetic polyneuropathy; Z89.411 Acquired absence of right great toe; Z79.4 Long term (current) use of insulin | CPT/HCPCS: 99213 ==

== ENCOUNTER → 2023-06-25 07:48 | Outpatient (BNVA) | payer MEDICAID, SELFPAY | PROVIDERS: PCP Nurse Practitioner; Referring Provider Nurse Practitioner Family; Visit Provider Nurse Practitioner Family | DX: D48.5 Neoplasm of uncertain behavior of skin (principal) | CPT/HCPCS: 11102; 17000; 17110; 99203 ==

== ENCOUNTER → 2023-07-21 08:54 | Outpatient (BNVA) | payer MEDICAID, SELFPAY | PROVIDERS: PCP Nurse Practitioner; Visit Provider Dermatology | DX: L30.1 Dyshidrosis [pompholyx] (principal); C44.311 Basal cell carcinoma of skin of nose | CPT/HCPCS: 17311; 99213 ==

== ENCOUNTER → 2023-07-31 11:27 | Outpatient (BNVA) | payer MEDICAID, SELFPAY | PROVIDERS: PCP Nurse Practitioner Family; Visit Provider Nurse Practitioner Family | DX: E11.65 Type 2 diabetes mellitus with hyperglycemia (principal); N39.0 Urinary tract infection, site not specified; Z79.4 Long term (current) use of insulin; I10 Essential (primary) hypertension; E78.5 Hyperlipidemia, unspecified | CPT/HCPCS: 80053; 80061; 81000; 83036; 84443; 85025 ==

== ENCOUNTER → 2023-08-11 14:47 | Outpatient (BNVA) | payer MEDICAID, SELFPAY | PROVIDERS: PCP Nurse Practitioner Family; Visit Provider Dermatology | DX: L30.1 Dyshidrosis [pompholyx] (principal); L72.0 Epidermal cyst; Z85.828 Personal history of other malignant neoplasm of skin; Z48.817 Encounter for surgical aftercare following surgery on the skin and subcutaneous tissue | CPT/HCPCS: 99213 ==

== ENCOUNTER → 2023-08-26 14:34 | Outpatient (BNVA) | payer MEDICAID, SELFPAY | PROVIDERS: PCP Nurse Practitioner Family; Visit Provider Dermatology | DX: L73.2 Hidradenitis suppurativa (principal); Z85.828 Personal history of other malignant neoplasm of skin; Z48.817 Encounter for surgical aftercare following surgery on the skin and subcutaneous tissue | CPT/HCPCS: 99214 ==

== ENCOUNTER → 2023-09-04 08:51 | Outpatient (BNVA) | payer MEDICAID, SELFPAY | PROVIDERS: PCP Nurse Practitioner Family; Visit Provider Podiatrist Foot & Ankle Surgery | DX: M14.672 Charcot's joint, left ankle and foot (principal); E11.42 Type 2 diabetes mellitus with diabetic polyneuropathy; Z89.411 Acquired absence of right great toe; Z79.4 Long term (current) use of insulin | CPT/HCPCS: 73630; 99213 ==

== ENCOUNTER → 2023-10-16 09:58 | Outpatient (BNVA) | payer MEDICAID, SELFPAY | PROVIDERS: PCP Nurse Practitioner Family; Visit Provider Nurse Practitioner Family | DX: E11.65 Type 2 diabetes mellitus with hyperglycemia (principal); N39.0 Urinary tract infection, site not specified; Z79.4 Long term (current) use of insulin | CPT/HCPCS: 80053; 80061; 81000; 83036; 84443; 85025 ==

== ENCOUNTER → 2023-10-29 13:08 | Outpatient (BNVA) | payer MEDICAID, SELFPAY | PROVIDERS: PCP Nurse Practitioner Family; Visit Provider Nurse Practitioner Family | DX: M54.9 Dorsalgia, unspecified (principal); N15.9 Renal tubulo-interstitial disease, unspecified | CPT/HCPCS: 81000 ==

== ENCOUNTER 2023-11-04 12:03 | Emergency (ER) | payer MEDICAID, SELFPAY ==
[2023-11-04] VITALS (42 sets, daily range): BP systolic 99–135; BP diastolic 59–86; PULSE 63–132; RESP 11–22; TEMP 36.4; O2SAT 92–100; BMI 39.7
--- NOTE | 2023-11-04 12:08 | XR_ITS ---
WS: [id number] Examination: XR chest 1V portable [id number] Reason for Exam: dyspnea/cough Date: November 04, 2023 Comparison: December 13, 2022 Findings: The heart is prominent in size. The mediastinum is not widened There is no pulmonary edema or pleural effusion. There is no dense consolidation XR/XR chest 1V portable [id number] Impression: No dense consolidation is seen. There is no failure.
--- NOTE | 2023-11-04 12:09 | ECG_ITS ---
[facility] Test Date: 2023-11-04 Pat Name: Soni Head Department: Room: Gender: Female Guide Setter: : 1965 Requested By: Cj Palacios Order Number: [id number] Eric MD: Santo Hinojosa M.D. Measurements Intervals [place] Rate: 129 P: 0 NV: 0 QRS: 42 QRSD: 93 T: 51 QT: 296 QTc: 435 Interpretive Statements ATRIAL FLUTTER WITH RAPID VENTRICULAR RESPONSE Compared to ECG 12/12/2022 14:38:19 ST (T wave) deviation now present Intraventricular conduction delay no longer present Electronically Signed On 11-04-2023 16:26:58 CDT by Santo Hinojosa M.D. [id number]
[2023-11-04] MEDS: dilTIAZem 5 mg/mL SDV 5 mL 20 MG IVP (12:27)
[2023-11-04] MEDS: dilTIAZem 100 MG in sodium chloride 0.9% (add-van) 100 ML IV (12:33)
[2023-11-04 12:50] LABS: Basophils # 0.1 10^3/uL (0.0-0.1); Basophils % 0.8 %; Eosinophils # 0.3 10^3/uL (0.0-0.8); Eosinophils % 2.4 %; Hematocrit 47.5 % (36-47); Lymphocytes # 3.5 10^3/uL (0.8-4.8); Lymphocytes % 25.1 %; Mean Corpuscular HGB Conc 33.7 g/dL (30-55); Mean Corpuscular Hemoglobin 29.7 pg (27-33); Mean Corpuscular Volume 88.1 fl (85-98); Mean Platelet Volume 11.2 fL (7.4-10.4); Monocytes % 7.1 %; Neutrophils # 8.88 10^3/uL (1.8-7.7); Neutrophils % 64.1 %; Nucleated Red Blood Cells % 0 %; Platelet Count 291 10^3/cmm (157-399); Red Blood Count 5.39 10^6/uL (3.85-5.65); Red Cell Distribution Width 12.5 % (12.1-15.1); White Blood Count 13.85 10^3/uL (3.29-11.43)
--- NOTE | 2023-11-04 12:54 | W.ED.ARRPALP ---
HPI - Arrhythmia/Palpitations General: Chief Complaint: Arrhythmia/Palpitations Stated Complaint: SVT, Tachy, Chest pressure, High Blood sugar Time Seen by Provider: 11/04/23 12:05 History of Present Illness: 88-year-old female presents emergency room with complaints of rapid heart rate. She woke up sweating at sense of rapid heart rate around 5:00. She went back to sleep when she woke up it was still rapid. She went to her primary care doctor's office and heart rate was noted to doctor's office and EMS was called to transport emergency room she was given fluids and route they interpreted the rhythm strip as sinus tachycardia. Patient has a known history of A-fib flutter she is on Xarelto, amiodarone and metoprolol. Related Data Home Medications Medication Instructions Recorded Confirmed acetaminophen 500 mg tablet 1,000 mg PO BID@,06/29/20 11/04/23 (Tylenol Extra Strength) loperamide 2 mg tablet 2 - 4 mg PO BID PRN Diarrhea 06/29/20 11/04/23 (Anti-Diarrheal (loperamide)) nitroglycerin 0.4 mg sublingual 0.4 mg sublingual Q5M PRN Chest 06/18/21 11/04/23 tablet (Nitrostat) Pain trolamine salicylate 10 % topical 1 applic topical TID PRN Pain 07/09/21 11/04/23 cream (Aspercreme) levocetirizine 5 mg tablet 5 mg PO BEDTIME@06/28/22 11/04/23 albuterol sulfate 90 mcg/actuation 2 puff inhalation QID PRN 10/07/22 11/04/23 aerosol inhaler Shortness Of Breath ascorbate calcium (vitamin C) 500 1,000 mg PO BEDTIME 12/09/22 11/04/23 mg tablet clindamycin phosphate 1 % lotion See Rx Instructions .Route .COMPLEX 11/04/23 11/04/23 clobetasol 0.05 % topical ointment See Rx Instructions .Route .COMPLEX 11/04/23 11/04/23 metoprolol tartrate 25 mg tablet 25 mg PO Q12H 11/04/23 11/04/23 mupirocin 2 % topical ointment See Rx Instructions .Route .COMPLEX 08/13/24 08/13/24 nystatin 100,000 unit/gram topical 1 applic topical BID PRN Skin 11/04/23 11/04/23 cream Irritation Previous Rx's Medication Instructions Recorded Diabetic Shoes with 3 Pairs of #1 ea 02/25/22 Inserts Diabetic shoes with 3 sets of #1 ea 05/22/22 inserts 12 pairs of diabetic socks #1 ea 10/29/22 Diabetic Shoes with 3 pairs of #1 ea 11/26/22 inserts- build up to the right blood-glucose meter #1 ea 11/27/22 atorvastatin 20 mg tablet 20 mg PO BEDTIME@22 #30 tabs 10/16/23 blood sugar diagnostic (Blood #100 ea 10/16/23 Glucose Test strips) doxepin 10 mg capsule 10 mg PO BEDTIME@22 #30 caps 10/16/23 dulaglutide 4.5 mg/0.5 mL 4.5 mg (0.5 mL) SUBCUT .weekly #2 10/16/23 subcutaneous pen injector mL duloxetine 60 mg capsule,delayed 60 mg PO BID@,22 #60 caps 10/16/23 release gabapentin 300 mg capsule 300 mg PO BID@,22 #60 caps 10/16/23 insulin detemir U-100 100 unit/mL 40 unit (0.4 mL) SUBCUT BEDTIME@22 10/16/23 (3 mL) subcutaneous pen #18 mL lancets #100 ea 10/16/23 pen needle, diabetic 31 gauge x #1,200 ea 10/16/23/ (Comfort EZ Pen [place]) rivaroxaban 20 mg tablet (Xarelto) 20 mg PO BEDTIME@22 #30 tabs 10/16/23 tizanidine 2 mg tablet 2 mg PO BEDTIME@22 #30 tabs 10/16/23 ciprofloxacin HCl 500 mg tablet 500 mg PO BID #20 tabs 10/29/23 (Cipro) cefdinir 300 mg capsule 300 mg PO BID 10 days #20 caps 11/04/23 Allergies Allergy/AdvReac Type Severity Reaction Status Date / Time azithromycin [From Zithromax] Allergy Unknown ADR-Gastrointestinal Verified 10/29/23 13:07 Upset sulfamethoxazole Allergy Unknown ADR-Gastrointestinal Verified 10/29/23 13:07 [From Bactrim] Upset trimethoprim [From Bactrim] Allergy Unknown ADR-Gastrointestinal Verified 10/29/23 13:07 Upset Review of Systems Const: Denies: fever(s) or chills Card: Reports: chest pain and palpitations Resp: Denies: dyspnea GI: Denies: abdominal pain : Denies: dysuria, urinary frequency or urinary urgency Musc: Denies: neck pain or back pain Skin/Breast: Denies: rash PFSH ED PFSH: Medical History Osteoarthritis of spine Ulcer of foot, chronic Breast cancer, right Breast cancer, left breast Open wound of foot Right great toe Gastroesophageal reflux disease Diabetes mellitus with hyperglycemia, with long-term current use of insulin Atrial fibrillation COPD (chronic obstructive pulmonary disease) Dyslipidemia SVT (supraventricular tachycardia) Asthma Benign hypertension COPD exacerbation Surgical History History of amputation of great toe H/O esophagogastroduodenoscopy (10/19/21) H/O bilateral mastectomy Status post left breast lumpectomy Status post right breast lumpectomy History of appendectomy History of hysterectomy Family History Father CAD (coronary artery disease) Congestive heart failure (CHF) Hyperlipidemia Hypertension Lung disease Stroke Other Diabetes Denies family history of Clotting disorder Dementia Psychiatric illness Chronic kidney disease (CKD) Suicide Anesthesia complication Bleeding disorder Family history of premature coronary artery disease Cancer Social History Smoking and tobacco/nicotine status: current every day tobacco/nicotine user cigarettes Packs smoked per day: 2 Second hand smoke exposure: Yes Alcohol intake: never Substance/Drug Use: never Adopted: No Caregiver/support person: No Lives independently: Yes Household members: family Housing: House Marital status: Single Number of children: 1 service: No Current occupational status: employed Current gender identity: Female Physical Exam Const: GENERAL APPEARANCE: cooperative ORIENTATION/CONSCIOUSNESS: Yes awake, Yes oriented to person, Yes oriented to place and Yes oriented to time HENMT: COMMON NORMALS: normocephalic, atraumatic and hearing grossly normal bilaterally HEAD & SCALP: normocephalic and atraumatic Resp: COMMON NORMALS: normal respiratory effort, No retractions, No use of accessory muscles and clear to auscultation bilaterally AUSCULTATION: clear to auscultation bilaterally Cardio: COMMON NORMALS: No murmurs present (Cardio) RATE: tachycardic RHYTHM: abnormal rhythm irregularly irregular GI: COMMON NORMALS: Soft to palpation and No hepatosplenomegaly present AUSCULTATION: Yes normoactive bowel sounds PALPATION: Yes Soft to palpation, No Tenderness to palpation present (GI), No Guarding due to palpation present (GI) and Yes No hepatosplenomegaly present Extremity: COMMON NORMALS: normal to inspection, capillary refill normal, no clubbing, cyanosis or edema, no calf tenderness and no pedal edema Neuro: SENSORIUM/ORIENTATION: Yes oriented to person, Yes oriented to place and Yes oriented to time Skin: COMMON NORMALS: no rashes or lesions noted GENERAL SKIN EXAM: no rashes or lesions noted Course Vital Signs: Vital signs: Vital Signs Temperature 97.6 F 11/04/23 12:05 Pulse Rate 63 11/04/23 16:25 Respiratory Rate 16 11/04/23 16:25 Blood Pressure 126/59 11/04/23 16:25 Pulse Oximetry 93 11/04/23 16:25 Oxygen Delivery Me thod Room Air 11/04/23 12:05 MDM - Arrhythmia/Palpitations Medical Decision Making Patient initially presents in A-fib flutter with a rapid heart rate responded to Cardizem then converted to a normal sinus rhythm briefly went back to A-fib for a few seconds and went back to normal sinus rhythm we are able to titrate the Cardizem off and she remained in normal rhythm. She is currently on appropriate medications specifically metoprolol to tartrate she takes it twice a day and did take it today. Will leave her on the same medication for now discharge her home. Noted to be bladder infection as well she just recently completed a course of Cipro despite this still is 100 white blood cells per high-power field a slight elevated white count. Her lactate was slightly elevated as well but resolved after IV fluids. Will discharge her home on Ceftin urine culture urine. Return if has recurrence of rapid heart rate. Follow-up with primary care within the next week Medical Records I reviewed the patient's medical records. Lab Data I reviewed the patient's lab results. 11/04/23 12:34 11/04/23 12:34 Radiology Impressions Chest X-Ray 11/04/23 12:08 Impression: No dense consolidation is seen. There is no failure. Laboratory Results WBC 13.85 10^3/uL (3.29-11.43) H 11/04/23 12:34 RBC 5.39 10^6/uL (3.85-5.65) 11/04/23 12:34 Hgb 16.00 g/dL (11.27-16.99) 11/04/23 12:34 Hct 47.5 % (36-47) H 11/04/23 12:34 MCV 88.1 fl (85-98) 11/04/23 12:34 MCH 29.7 pg (27-33) 11/04/23 12:34 MCHC 33.7 g/dL (30-55) 11/04/23 12:34 RDW 12.5 % (12.1-15.1) 11/04/23 12:34 Plt Count 291 10^3/cmm (157-399) 11/04/23 12:34 MPV 11.2 fL (7.4-10.4) H 11/04/23 12:34 Neut % (Auto) 64.1 % 11/04/23 12:34 Lymph % (Auto) 25.1 % 11/04/23 12:34 Mcdonough % (Auto) 7.1 % 11/04/23 12:34 Eos % (Auto) 2.4 % 11/04/23 12:34 Baso % (Auto) 0.8 % 11/04/23 12:34 Neut # (Auto) 8.88 10^3/uL (1.8-7.7) H 11/04/23 12:34 Lymph # (Auto) 3.5 10^3/uL (0.8-4.8) 11/04/23 12:34 Mcdonough # (Auto) 1.0 10^3/uL (0.2-0.9) H 11/04/23 12:34 Eos # (Auto) 0.3 10^3/uL (0.0-0.8) 11/04/23 12:34 Baso # (Auto) 0.1 10^3/uL (0.0-0.1) 11/04/23 12:34 Nucleated RBC % (auto) 0 % 11/04/23 12:34 Nucleated RBCs # 0.0 /100WBC 11/04/23 12:34 Sodium 136 mmol/L (136-145) 11/04/23 12:34 Potassium 4.5 mmol/L (3.5-5.1) 11/04/23 12:34 Chloride 99 mmol/L (98-107) 11/04/23 12:34 Carbon Dioxide 26 mmol/L (22-29) 11/04/23 12:34 Anion Gap 15.5 (5-19) 11/04/23 12:34 BUN 18 mg/dL (6-20) 11/04/23 12:34 Creatinine 0.7 mg/dL (0.5-0.9) 11/04/23 12:34 GFR Calculation 85.6 mL/min (90-130) L 11/04/23 12:34 Glucose 359 mg/dL (65-115) H 11/04/23 12:34 POC Glucose 264 mg/dL (70-110) H 11/04/23 15:05 Calculated Osmolality 298 mOsm/kg (285-295) H 11/04/23 12:34 Lactic Acid 2.4 mmol/L (0.5-2.2) H 11/04/23 12:34 Lactic Acid (Sepsis) 1.6 mmol/L (0.5-2.2) 11/04/23 15:25 Calcium 8.6 mg/dL (8.5-10.5) 11/04/23 12:34 Total Bilirubin 0.3 mg/dL (0.15-1.2) 11/04/23 12:34 AST 7 U/L (0-32) 11/04/23 12:34 ALT 10 U/L (0-33) 11/04/23 12:34 Alkaline Phosphatase 121 U/L (35-105) H 11/04/23 12:34 Troponin T Baseline 14 ng/L (0-10) H 11/04/23 12:34 Troponin T 120 Minute 13.22 ng/L (0-10) H 11/04/23 14:38 Delta Troponin T -0.78 ABS# (0-10) L 11/04/23 14:38 Total Protein 6.4 g/dL (6.6-8.7) L 11/04/23 12:34 Albumin 3.3 g/dL (3.5-5.2) L 11/04/23 12:34 Globulin 3.1 g/dL (1.3-4.6) 11/04/23 12:34 Urine Color Yellow (Yellow) 11/04/23 14:24 Urine Appearance Cloudy (CLEAR) A 11/04/23 14:24 Urine pH 6.0 (5-7) 11/04/23 14:24 Ur Specific [place] 1.009 (1.005-1.030) 11/04/23 14:24 Urine Protein 2+ (Negative) A 11/04/23 14:24 Urine Glucose (UA) 1+ (Normal) H 11/04/23 14:24 Urine Ketones Negative (Negative) 11/04/23 14:24 Urine Blood 1+ (Negative) A 11/04/23 14:24 Urine Nitrate Negative (Negative) 11/04/23 14:24 Urine Bilirubin Negative (Negative) 11/04/23 14:24 Urine Urobilinogen 0.2 mg/dL (Negative) 11/04/23 14:24 Ur Leukocyte Esterase 3+ (Negative) A 11/04/23 14:24 Urine RBC 3-5 /hpf (0-2) 11/04/23 14:24 Urine WBC >100 /hpf (0-5) H 11/04/23 14:24 Ur Squamous Epith Cells 0-5 /hpf (0-5) 11/04/23 14:24 Amorphous Sediment Not Reportable 11/04/23 14:24 Urine Bacteria None seen /hpf (NONE) 11/04/23 14:24 Hyaline Casts 5.36 /lpf 11/04/23 14:24 Urine Yeast 1+ /hpf H 11/04/23 14:24 All radiology interpretation(s) finalized by discharge Discharge Plan Discharge Patient Disposition: Home Clinical Impression: Atrial fibrillation/flutter, Cystitis Condition: Stable Prescriptions: New cefdinir 300 mg capsule 300 mg PO BID 10 Days Qty: 20 0RF No Action (DME) Diabetic Shoes with 3 Pairs of Inserts See Rx Instructions .Route .MEDSUPPLY Qty: 1 0RF Rx Instructions: As directed by HOME (DME) Diabetic shoes with 3 sets of inserts See Rx Instructions .Route .MEDSUPPLY Qty: 1 0RF Rx Instructions: As directed by PENNY&O ([facility]) blood-glucose meter Misc See Rx Instructions .Route Qty: 1 0RF Rx Instructions: As directed tizanidine 2 mg tablet 2 mg PO BEDTIME@22 Qty: 30 2RF Xarelto 20 mg tablet 20 mg PO BEDTIME@22 Qty: 30 2RF (DME) lancets Misc See Rx Instructions .Route Qty: 100 3RF Rx Instructions: once daily insulin detemir U-100 100 unit/mL (3 mL) insulin pen 40 unit SUBCUT BEDTIME@22 Qty: 18 2RF gabapentin 300 mg capsule 300 mg PO BID@22 Qty: 60 2RF duloxetine 60 mg capsule,delayed release(DR/EC) 60 mg PO BID@ Qty: 60 2RF doxepin 10 mg capsule 10 mg PO BEDTIME@22 Qty: 30 2RF (DME) Blood Glucose Test Strip See Rx Instructions .Route Qty: 100 3RF Rx Instructions: once daily atorvastatin 20 mg tablet 20 mg PO BEDTIME@22 Qty: 30 5RF dulaglutide 4.5 mg/0.5 mL pen injector 4.5 mg SUBCUT .weekly Qty: 2 2RF Rx Instructions: ON FRIDAY ([facility]) pen needle, diabetic [Comfort EZ Pen [place]] 31 gauge x 5/16 needle See Rx Instructions .Route Qty: 1200 2RF Rx Instructions: As directed ciprofloxacin HCl [Cipro] 500 mg tablet 500 mg PO BID Qty: 20 0RF Rx Instructions: hold tizanidine while taking (DME) 12 pairs of diabetic socks See Rx Instructions .Route .MEDSUPPLY Qty: 1 0RF Rx Instructions: As directed by [facility] ([facility]) Diabetic Shoes with 3 pairs of inserts- build up to the right See Rx Instructions .Route .MEDSUPPLY Qty: 1 0RF Rx Instructions: As directed by [facility] loperamide [Anti-Diarrheal (loperamide)] 2 mg Tablet 2 - 4 mg PO BID PRN (Reason: Diarrhea) acetaminophen [Tylenol Extra Strength] 500 mg Tablet 1,000 mg PO BID@ trolamine salicylate [Aspercreme] 10 % Cream 1 applic TOPICAL TID PRN (Reason: Pain) albuterol sulfate 90 mcg/actuation Hfa Aerosol Inhaler 2 puff INHALATION QID PRN (Reason: Shortness Of Breath) nitroglycerin [Nitrostat] 0.4 mg Tablet, Sublingual 0.4 mg SUBLINGUAL Q5M PRN (Reason: Chest Pain) Rx Instructions: do not exceed 3 doses per episode levocetirizine 5 mg Tablet 5 mg PO BEDTIME@22 ascorbate calcium (vitamin C) 500 mg Tablet 1,000 mg PO BEDTIME mupirocin 2 % ointment See Rx Instructions .ROUTE .COMPLEX Rx Instructions: APPLY TOPICALLY TO THE AFFECTED AREA ON NOSE DAILY UNTIL HEALED. clobetasol 0.05 % ointment See Rx Instructions .ROUTE .COMPLEX Rx Instructions: APPLY TOPICALLY TO THE AFFECTED AREA OF BOTH HANDS NO MORE THAN TWO WEEKS PER MONTH. clindamycin phosphate 1 % lotion See Rx Instructions .ROUTE .COMPLEX Rx Instructions: APPLY TO AFFECTED AREAS IN GROIN, ARMPITS 1-2 TIMES DAILY. nystatin 100,000 unit/gram cream 1 applic topical BID PRN (Reason: Skin Irritation) metoprolol tartrate 25 mg tablet 25 mg PO Q12H Discharge Orders: Discharge ED (Routine); Ordered 11/04/23 Ordered By: Cj Gomez Referrals: Cristina Canela FNP-C [Primary Care Provider] - Discharge Diet: Usual diet Discharge Activity: Limit activity as instructed Patient Instructions: Opioid Safety, Pain Management Activity Restrictions/Additional Instructions: Thank you for choosing [facility] for your healthcare needs today. It is very important that you follow up as instructed or that you return to the Emergency Department should you have concerns or if your condition changes or worsens in any way. You were seen in the emergency room with a rapid heart rate called atrial flutter. You are rate controlled with medications and then you converted back to a normal sinus rhythm which remained throughout the remainder of your visit. 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
[2023-11-04 13:04] LABS: Lactic Sepsis W/Reflex 2.4 mmol/L (0.5-2.2)
[2023-11-04 13:05] LABS: Alanine Aminotransferase 10 U/L (0-33); Albumin Level 3.3 g/dL (3.5-5.2); Alkaline Phosphatase 121 U/L (35-105); Anion Gap 15.5 (5-19); Aspartate Amino Transferase 7 U/L (0-32); Blood Urea Nitrogen 18 mg/dL (6-20); Calcium 8.6 mg/dL (8.5-10.5); Carbon Dioxide 26 mmol/L (22-29); Chloride 99 mmol/L (98-107); Creatinine Clr Calc Pharmacy 113.4451; Globulin 3.1 g/dL (1.3-4.6); Glomerular Filtration Rate 85.6 mL/min (90-130); Glucose 359 mg/dL (65-115); Osmolality Calculated 298 mOsm/kg (285-295); Potassium 4.5 mmol/L (3.5-5.1); Sodium 136 mmol/L (136-145); Total Bilirubin 0.3 mg/dL (0.15-1.2); Total Protein 6.4 g/dL (6.6-8.7); Troponin(5th) Baseline 14 ng/L (0-10)
[2023-11-04] MEDS: sodium chloride 0.9% 1,000 ML 999 ML IV (13:13)
--- NOTE | 2023-11-04 14:02 | ECG_ITS ---
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 Measurements Intervals [place] Rate: 64 P: 35 AR: 240 QRS: 52 QRSD: 102 T: 59 QT: 416 QTc: 430 Interpretive Statements SINUS RHYTHM WITH FIRST DEGREE AV BLOCK Compared to ECG 11/04/2023 12:17:20 First degree AV block now present Atrial flutter no longer present ST (T wave) deviation no longer present Electronically Signed On 11-04-2023 16:28:19 CDT by Santo Hinojosa M.D. [id number]
[2023-11-04 14:31] LABS: Reflex Lactate Order REFLEX LACTIC ORDERD
--- NOTE | 2023-11-04 14:45 | PC.PHAR ---
PT FORGOT TO TAKE DULAGLUTIDE 4.5MG INJECTION ON FRIDAY. PT WAS TAKEN OFF PACERONE 200MG IN DECEMBER 2022.
[2023-11-04 14:59] LABS: Troponin 5 2HR 13.22 ng/L (0-10)
[2023-11-04 15:02] LABS: Charge for UA Resulting for Rev
[2023-11-04 15:05] LABS: Troponin 5 2HR Delta -0.78 ABS# (0-10)
[2023-11-04 15:06] LABS: Bilirubin Urine Negative (Negative); Blood Urine 1+ (Negative); Glucose Urine UA 1+ (Normal); Ketones Urine Negative (Negative); Leukocyte Esterase Urine 3+ (Negative); Nitrate Urine Negative (Negative); Protein Urine 2+ (Negative); Specific Gravity, Urine 1.009 (1.005-1.030); Urine Appearance Cloudy (CLEAR); Urine Color Yellow (Yellow); Urobilinogen Urine 0.2 mg/dL (Negative)
[2023-11-04 15:07] LABS: Glucose Point of Care 264 mg/dL (70-110)
[2023-11-04 15:10] LABS: Bacteria Urine None Seen /hpf; Hyaline Casts Urine 5.36 /lpf; Squamous Epithelial Cell Urine 0-5 /hpf (0-5); WBC Urine >100 /hpf (0-5)
[2023-11-04 15:27] LABS: Add Urine Culture? Yes
[2023-11-04 15:45] LABS: Lactic Acid level (Lactate) 1.6 mmol/L (0.5-2.2)
[2023-11-04] MEDS: cefTRIAXone 1,000 mg SDV 1000 MG IVP (16:10)
== END 2023-11-04 16:41 | disposition home or self-care (01) ==
PROVIDERS: Emergency Provider Family Medicine; PCP Nurse Practitioner Family
DX: I48.91 Unspecified atrial fibrillation (principal); I48.92 Unspecified atrial flutter; N30.90 Cystitis, unspecified without hematuria; Z79.4 Long term (current) use of insulin; Z79.85 Long-term (current) use of injectable non-insulin antidiabetic drugs; F17.210 Nicotine dependence, cigarettes, uncomplicated; Z85.3 Personal history of malignant neoplasm of breast; E11.9 Type 2 diabetes mellitus without complications; J44.9 Chronic obstructive pulmonary disease, unspecified; E78.5 Hyperlipidemia, unspecified; I10 Essential (primary) hypertension
CPT/HCPCS: 36415; 36416; 71045; 80053; 81003; 81015; 82962; 83605; 84484; 85025; 87040; 87086; 93005; 96365; 96366; 96375; 99285; J0696; J3490; J7030

== ENCOUNTER 2023-11-05 11:04 | Outpatient (CLI) | payer MEDICAID, SELFPAY ==
--- NOTE | 2023-11-05 12:00 | CT_ITS ---
WS: [id number] Examination: CT abdomen pelvis w con* [id number] Reason for Exam: N39.0 - Urinary tract infection, site not specified Date: November 05, 2023 Comparison: December 09, 2022 DLP: 1179.[address] scans at [facility] use at least one of these dose optimization techniques: automated e xposure control; mA and/or kV adjustment per patient size (includes targeted exams where dose is matc hed to clinical indication); or iterative reconstruction. Findings: The heart is mildly prominent. There is no pleural effusion The liver is prominent in size. The gallbladder is present. The liver is inhomogenous without focal m ass. The portal vein is patent. Spleen is mildly prominent in size. The pancreas is not enlarged. There are atherosclerotic changes of the aorta prominent vascular calcification is identified. There is no adrenal mass. The renal perfusion is mildly inhomogenous particularly inferiorly on the left. There is malrotation of the right kidney. There is no right renal calculi or hydronephrosis. There is some scarring of the left kidney. There is mild stranding in the left perinephric space The urinary bladder is abnormally thick walled. There is no small bowel obstruction. There is a moderate stool burden. There is no free fluid. There is no free air. CT/CT abdomen pelvis w con* [id number] Impression: The liver is prominent in size and inhomogenous. Hepatic steatosis is suspected . The spleen is mildly prominent in size. The right kidney is malrotated. There is mild scarring and minimal inhomogenous perfusion of the left kidney. There is stranding in the pararenal space on the left. Pyelonephritis could have this appearance. The urinary bladder is abnorm ally thick walled.
[2023-11-05] MEDS: iohexol 350 mg/mL 500 mL Btl (per mL) IV (12:51)
[2023-11-05] MEDS: iohexol 350 mg/mL 500 mL Btl (per mL) PO (12:51)
== END 2023-11-05 11:05 | disposition home or self-care (01) ==
LOC: RAD 11:05
PROVIDERS: PCP Nurse Practitioner Family; Visit Provider Nurse Practitioner Family
DX: N15.9 Renal tubulo-interstitial disease, unspecified (principal); Z87.448 Personal history of other diseases of urinary system; I48.0 Paroxysmal atrial fibrillation; I70.0 Atherosclerosis of aorta; F17.200 Nicotine dependence, unspecified, uncomplicated; I51.7 Cardiomegaly; R16.0 Hepatomegaly, not elsewhere classified
CPT/HCPCS: 74177; 99214; Q9967

== ENCOUNTER → 2023-11-17 13:44 | Outpatient (BNVA) | payer MEDICAID, SELFPAY | PROVIDERS: PCP Nurse Practitioner Family; Visit Provider Nurse Practitioner Family | DX: E11.65 Type 2 diabetes mellitus with hyperglycemia (principal); Z79.4 Long term (current) use of insulin; N39.0 Urinary tract infection, site not specified | CPT/HCPCS: 81015; 87086 ==

== ENCOUNTER → 2024-01-06 07:37 | Outpatient (BNVA) | payer MEDICAID, SELFPAY | PROVIDERS: PCP Nurse Practitioner Family; Visit Provider Podiatrist Foot & Ankle Surgery | DX: M14.672 Charcot's joint, left ankle and foot (principal); E11.42 Type 2 diabetes mellitus with diabetic polyneuropathy; R60.0 Localized edema; Z89.411 Acquired absence of right great toe; Z79.4 Long term (current) use of insulin | CPT/HCPCS: 99213 ==

== ENCOUNTER → 2024-02-10 13:28 | Outpatient (BNVA) | payer MEDICAID, SELFPAY | PROVIDERS: PCP Nurse Practitioner Family; Visit Provider Nurse Practitioner Family | DX: E11.65 Type 2 diabetes mellitus with hyperglycemia (principal); Z79.4 Long term (current) use of insulin | CPT/HCPCS: 80053; 80061; 83036; 84443; 85025 ==

== ENCOUNTER → 2024-02-25 09:03 | Outpatient (BNVA) | payer MEDICAID, SELFPAY | PROVIDERS: PCP Nurse Practitioner Family; Visit Provider Nurse Practitioner Family | DX: L73.2 Hidradenitis suppurativa (principal); S80.922A Unspecified superficial injury of left lower leg, initial encounter; X58.XXXA Exposure to other specified factors, initial encounter; L57.8 Other skin changes due to chronic exposure to nonionizing radiation; L81.4 Other melanin hyperpigmentation; D22.5 Melanocytic nevi of trunk; Z85.828 Personal history of other malignant neoplasm of skin | CPT/HCPCS: 99214 ==

== ENCOUNTER → 2024-04-13 13:56 | Outpatient (BNVA) | payer MEDICAID, SELFPAY | PROVIDERS: PCP Nurse Practitioner Family; Visit Provider Podiatrist Foot & Ankle Surgery | DX: M14.672 Charcot's joint, left ankle and foot (principal); E11.42 Type 2 diabetes mellitus with diabetic polyneuropathy; Z89.419 Acquired absence of unspecified great toe; R60.0 Localized edema; L60.3 Nail dystrophy; Z89.411 Acquired absence of right great toe; Z79.4 Long term (current) use of insulin | CPT/HCPCS: 11721; 99213 ==

== ENCOUNTER → 2024-04-28 09:47 | Outpatient (BNVA) | payer MEDICAID, SELFPAY | PROVIDERS: PCP Nurse Practitioner Family; Visit Provider Nurse Practitioner Family | DX: E11.9 Type 2 diabetes mellitus without complications (principal); E11.65 Type 2 diabetes mellitus with hyperglycemia; Z79.4 Long term (current) use of insulin | CPT/HCPCS: 80053; 80061; 83036; 84443; 85025 ==

== ENCOUNTER 2024-06-10 16:40 | Emergency (ER) | payer MEDICAID, SELFPAY ==
--- NOTE | 2024-06-10 16:45 | ECG_ITS ---
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 Measurements Intervals [place] Rate: 63 P: 47 PA: 198 QRS: -9 QRSD: 97 T: 69 QT: 436 QTc: 448 Interpretive Statements SINUS RHYTHM POSSIBLE ANTERIOR MYOCARDIAL INFARCTION , OF INDETERMINATE AGE [30 ms Q WAVE IN V3/V4, OR R < 0.2 mV IN V4] Compared to ECG 11/04/2023 14:02:40 Myocardial infarct finding now present First degree AV block no longer present Electronically Signed On 06-12-2024 07:43:33 CDT by Santo Hinojosa M.D. [id number]
--- NOTE | 2024-06-10 16:45 | XRR_ITS ---
PROCEDURE INFORMATION: Exam: XR Chest Exam date and time: 06/10/2024 4:58 PM Age: 59 years old Clinical indication: Dyspnea; Prior surgery; Surgery date: 6+ months; Surgery type: Double mastectomy; Additional info: Dyspnea/cough TECHNIQUE: Imaging protocol: Radiologic exam of the chest. Views: 1 view. COMPARISON: CR XR chest 1V portable [id number] 11/04/2023 12:11 PM FINDINGS: Lungs: No consolidation. Stable 5 mm dense round nodule in the apex of the left lung suggestive of calcified granuloma. Pleural spaces: No pleural effusion. No pneumothorax. Heart/Mediastinum: No cardiomegaly. Bones/joints: No acute findings. Soft tissues: Stable surgical clips right axilla. XR/XR chest 1V portable [id number] IMPRESSION: No acute findings.
[2024-06-10 16:50] VITALS: BP 229/114; PULSE 63; RESP 18; TEMP 36.8; O2SAT 98; BMI 38.3
--- NOTE | 2024-06-10 16:55 | ED_ITS ---
Documented by User: Cj Gomez DO 06/11/24 06:16 HPI - Dizziness 2 General: Chief Complaint: Dizziness Stated Complaint: hypertension - chest pain Time Seen by Provider: 06/10/24 16:42 History of Present Illness: HPI Narrative: 59-year-old female presents emergency ro om complaining of chest discomfort elevated blood pressure with a headache and some dizziness. No difficulty speech or swallowing. She does have a history of atrial fibrillation she is on metoprolol she was previously on amiodarone but stopped she is on Eliquis that she fell 2 days ago and hit her head after standing up in the kitchen. Has not had any vomiting or diarrhea no fever sweats or chills. Associated symptoms: Denies chest pain or chills Related Data Home Medications ?Medication ?Instructions ?Recorded ?Confirmed nitroglycerin 0.4 mg sublingual 0.4 mg sublingual Q5M PRN Chest 06/18/21 05/25/24 tablet (Nitrostat) Pain ascorbate calcium (vitamin C) 500 1,000 mg PO BEDTIME 12/09/22 05/25/24 mg tablet clindamycin phosphate 1 % lotion See Rx Instructions . Route .COMPLEX 11/04/23 05/25/24 clobetasol 0.05 % topical ointment See Rx Instructions .Route .COMPLEX 11/04/23 05/25/24 nystatin 100,000 unit/gram topical 1 applic topical BI D PRN Skin 11/04/23 05/25/24 cream Irritation Previous Rx's ?Medication ?Instructions ?Recorded Diabetic Shoes with 3 Pairs of #1 ea 02/25/22 Inserts Diabetic shoes with 3 sets of #1 ea 05/22/22 inserts 12 pairs of diabetic socks #1 ea 10/29/22 Diabetic Shoes with 3 pairs of #1 ea 11/26/22 inserts- build up to the right blood-glucose meter #1 ea 11/27/22 prednisone 20 mg tablet 20 mg PO BID #10 tabs promethazine-DM 6.25 mg-15 mg/5 mL 5 - 10 ml PO Q6H OK N cough #240 mL 12/16/23 oral syrup amiodarone 200 mg tablet (Pacerone) 200 mg PO DAILY #9 0 tabs 03/25/24 albuterol sulfate 90 mcg/actuation 2 puff inhalation Q ID PRN 05/25/24 aerosol inhaler Shortness Of Breath #6.7 gra ms atorvastatin 40 mg tablet 40 mg PO BEDTIME@22 #30 tabs 05/25/24 blood sugar diagnostic (Blood #100 ea 05/25/24 Glucose Test strips) doxepin 25 mg capsule 25 mg PO BEDTIME@22 #30 caps 05/25/24 doxycycline hyclate 100 mg capsule 100 mg PO BID #14 c aps 05/25/24 doxycycline hyclate 100 mg capsule 100 mg PO BID #20 c aps 05/25/24 dulaglutide 4.5 mg/0.5 mL 4.5 mg (0.5 mL) SUBCUT .week ly #2 05/25/24 subcutaneous pen injector mL duloxetine 60 mg capsule,delayed 60 mg PO BID@10,22 #6 0 caps 05/25/24 release gabapentin 300 mg capsule 300 mg PO BID@10,22 #60 caps 05/25/24 insulin glargine 100 unit/mL (3 50 unit (0.5 mL) SUBCU T BEDTIME 05/25/24 mL) subcutaneous pen (Lantus #15 mL Solostar U-100 Insulin) lancets #100 ea 05/25/24 levocetirizine 5 mg tablet 5 mg PO BID #60 tabs metoprolol tartrate 25 mg tablet 25 mg PO Q12H #60 tab s 05/25/24 pen needle, diabetic 31 gauge x #1,200 ea 05/25/24 5/16 (Comfort EZ Pen Long Bottom) prednisone 20 mg tablet 20 mg PO DAILY #5 tabs 05/25 rivaroxaban 20 mg tablet (Xarelto) 20 mg PO BEDTIME@22 #30 tabs 05/25/24 tizanidine 2 mg tablet 2 mg PO BEDTIME@22 #30 tabs 05/25/24 Allergies Allergy/AdvReac Type Severity Reaction Status Date / Time azithromycin (From Zithromax) Allergy Unknown ADR-Gastrointestinal Verified 05/25/24 08:45 Upset sulfamethoxazole (From Allergy Unknown ADR-Gastrointestinal Verified 05/25/24 08:45 Bactrim) Upset trimethoprim (From Bactrim) Allergy Unknown ADR-Gastrointestinal Verified 05/25/24 08:45 Upset Review of Systems 2 Const: Denies: fever(s) or chills Card: Denies: chest pain Resp: Denies: dyspnea GI: Denies: abdominal pain : Denies: dysuria, urinary frequency or urinary urgency Musc: Denies: neck pain or back pain Skin/Breast: Denies: rash PFSH ED 2 PFSH: Medical History Osteoarthritis of spine Ulcer of foot, chronic Breast cancer, right Breast cancer, left breast Open wound of foot Right great toe Gastroesophageal reflux disease Diabetes mellitus with hyperglycemia, with long-term current use of insulin Atrial fibrillation COPD (chronic obstructive pulmonary disease) Dyslipidemia SVT (supraventricular tachycardia) Asthma Benign hypertension COPD exacerbation Surgical History History of amputation of great toe H/O esophagogastroduodenoscopy (10/19/21) H/O bilateral mastectomy Status post left breast lumpectomy Status post right breast lumpectomy History of appendectomy History of hysterectomy Family History Father CAD (coronary artery disease) Congestive heart failure (CHF) Hyperlipidemia Hypertension Lung disease Stroke Other Diabetes Denies family history of Clotting disorder Dementia Psychiatric illness Chronic kidney disease (CKD) Suicide Anesthesia complication Bleeding disorder Family history of premature coronary artery disease Cancer Social History Smoking and tobacco/nicotine status: current every day tobacco/nicotine user cigarettes Packs smoked per day: 2 Second hand smoke exposure: Yes Alcohol intake: never Substance/Drug Use: never Adopted: No Caregiver/support person: No Lives independently: Yes Household members: family Housing: House Marital status: Single Number of children: 1 service: No Current occupational status: employed Current gender identity: Female Physical Exam 2 Const: COMMON NORMALS: no acute distress GENERAL APPEARANCE: cooperative and comfortable ORIENTATION/CONSCIOUSNESS: Yes awake, Yes oriented to person, Yes oriented to place and Yes oriented to time HENMT: COMMON NORMALS: normocephalic, atraumatic and hearing grossly normal bilaterally HEAD & SCALP: normocephalic and atraumatic Resp: COMMON NORMALS: normal respiratory effort, No retractions, No use of accessory muscles and clear to auscultation bilaterally AUSCULTATION: clear to auscultation bilaterally Cardio: COMMON NORMALS: regular rate, regular rhythm and No murmurs present (Cardio) RATE: regular rate RHYTHM: regular rhythm GI: COMMON NORMALS: Soft to palpation and No hepatosplenomegaly present A USCULTATION: Yes normoactive bowel sounds PALPATION: Yes Soft to palpation, No Tenderness to palpation present (GI), No Guarding due to palpation present (GI) and Yes No hepatosplenomegaly present Extremity: COMMON NORMALS: normal to inspection, capillary refill normal, no clubbing, cyanosis or edema, no calf tenderness and no pedal edema Neuro: SENSORIUM/ORIENTATION: Yes oriented to person, Yes oriented to place and Yes oriented to time Skin: COMMON NORMALS: no rashes or lesions noted GENERAL SKIN EXAM: no rashes or lesions noted Course 2 Vital Signs: Vital signs: Vital Signs Temperature 98.2 F 06/10/24 16:50 Pulse Rate 78 06/10/24 21:28 Respiratory Rate 20 H 06/10/24 21:28 Blood Pressure 170/82 06/10/24 21:28 Pulse Oximetry 98 06/10/24 21:28 Oxygen Delivery Me thod Room Air 06/10/24 16:50 MDM - Dizziness Medical Decision Making Care signed out to Dr. Rachel at change of shift. See final notes for diagnosis and disposition. Patient's hypertension is much improved. Headache is also now much improved. Patient is ready for discharge. Workup is unremarkable, CT head shows no acute finding, radiology agrees. Troponin stable. Hemorrhagic stroke, subdural hematoma, axillary hypertension, headache versus migraine Lab Data 06/10/24 16:58 06/10/24 16:58 Radiology Impressions Chest X-Ray 06/10/24 16:45 IMPRESSION: No acute findings. Head CT 06/10/24 16:58 IMPRESSION: No CT evidence of acute intracranial hemorrhage, mass or acute infarction. Laboratory Results WBC 10.75 10^3/uL (3.29-11.43) 06/10/24 16:58 RBC 5.47 10^6/uL (3.85-5.65) 06/10/24 16:58 Hgb 16.20 g/dL (11.27-16.99) 06/10/24 16:58 Hct 49.7 % (36-47) H 06/10/24 16:58 MCV 90.9 fl (85-98) 06/10/24 16:58 MCH 29.6 pg (27-33) 06/10/24 16:58 MCHC 32.6 g/dL (30-55) 06/10/24 16:58 RDW 12.8 % (12.1-15.1) 06/10/24 16:58 Plt Count 259 10^3/cmm (157-399) 06/10/24 16:58 MPV 11.4 fL (7.4-10.4) H 06/10/24 16:58 Neut % (Auto) 58.7 % 06/10/24 16:58 Lymph % (Auto) 30.4 % 06/10/24 16:58 Graves % (Auto) 6.7 % 06/10/24 16:58 Eos % (Auto) 2.8 % 06/10/24 16:58 Baso % (Auto) 0.8 % 06/10/24 16:58 Neut # (Auto) 6.31 10^3/uL (1.8-7.7) 06/10/24 16:58 Lymph # (Auto) 3.3 10^3/uL (0.8-4.8) 06/10/24 16:58 Graves # (Auto) 0.7 10^3/uL (0.2-0.9) 06/10/24 16:58 Eos # (Auto) 0.3 10^3/uL (0.0-0.8) 06/10/24 16:58 Baso # (Auto) 0.1 10^3/uL (0.0-0.1) 06/10/24 16:58 Nucleated RBC % (auto) 0 % 06/10/24 16:58 Nucleated RBCs # 0.0 /100WBC 06/10/24 16:58 Sodium 142 mmol/L (136-145) 06/10/24 16:58 Potassium 4.5 mmol/L (3.5-5.1) 06/10/24 16:58 Chloride 106 mmol/L (98-107) 06/10/24 16:58 Carbon Dioxide 28 mmol/L (22-29) 06/10/24 16:58 Anion Gap 12.5 (5-19) 06/10/24 16:58 BUN 10 mg/dL (8-23) 06/10/24 16:58 Creatinine 0.5 mg/dL (0.5-0.9) 06/10/24 16:58 GFR Calculation 125.9 mL/min (90-130) 06/10/24 16:58 Glucose 192 mg/dL (65-115) H 06/10/24 16:58 Calculated Osmolality 298 mOsm/kg (285-295) H 06/10/24 16:58 Calcium 8.2 mg/dL (8.5-10.5) L 06/10/24 16:58 Total Bilirubin 0.3 mg/dL (0.15-1.2) 06/10/24 16:58 AST 10 U/L (0-32) 06/10/24 16:58 ALT 10 U/L (0-33) 06/10/24 16:58 Alkaline Phosphatase 141 U/L (35-105) H 06/10/24 16:58 Troponin T Baseline 17 ng/L (0-10) H 06/10/24 16:58 Troponin T 120 Minute 17.62 ng/L (0-10) H 06/10/24 18:51 Delta Troponin T 0.62 ABS# (0-10) 06/10/24 18:51 Total Protein 4.9 g/dL (6.6-8.7) L 06/10/24 16:58 Albumin 2.7 g/dL (3.5-5.2) L 06/10/24 16:58 Globulin 2.2 g/dL (1.3-4.6) 06/10/24 16:58 Discharge Plan Discharge Patient Disposition: Home Clinical Impression: Hypertensive urgency Headache Qualifiers: Headache type: unspecified Headache chronicity pattern: acute headache I ntractability: not intractable Qualified Code(s): R51.9 - Headache, unspecified Condition: Stable Prescriptions: No Action (DME) Diabetic Shoes with 3 Pairs of Inserts See Rx Instructions .Route .MEDSUPPLY Qty: 1 0RF Rx Instructions: As directed by HOME (DME) Diabetic shoes with 3 sets of inserts See Rx Instructions .Route .MEDSUPPLY Qty: 1 0RF Rx Instructions: As directed by [facility] (DME) blood-glucose meter Misc See Rx Instructions .Route Qty: 1 0RF Rx Instructions: As directed promethazine-DM 6.25-15 mg/5 mL syrup 5 - 10 ml PO Q6H PRN (Reason: cough) Qty: 240 0RF prednisone 20 mg tablet 20 mg PO BID Qty: 10 0RF tizanidine 2 mg tablet 2 mg PO BEDTIME@22 Qty: 30 2RF Xarelto 20 mg tablet 20 mg PO BEDTIME@22 Qty: 30 2RF (DME) pen needle, diabetic [Comfort EZ Pen Long Bottom] 31 gauge x 5/16 needle See Rx Instructions .Route Qty: 1200 2RF Rx Instructions: As directed levocetirizine 5 mg tablet 5 mg PO BID Qty: 60 5RF ([facility]) lancets Misc See Rx Instructions .Route Qty: 100 3RF Rx Instructions: once daily dulaglutide 4.5 mg/0.5 mL pen injector 4.5 mg SUBCUT .weekly Qty: 2 2RF Rx Instructions: ON FRIDAY ([facility]) Blood Glucose Test Strip See Rx Instructions .Route Qty: 100 3RF Rx Instructions: once daily insulin glargine [Lantus Solostar U-100 Insulin] 100 unit/mL (3 mL) insulin pen 50 unit SUBCUT BEDTIME Qty: 15 2RF atorvastatin 40 mg tablet 40 mg PO BEDTIME@22 Qty: 30 5RF metoprolol tartrate 25 mg tablet 25 mg PO Q12H Qty: 60 2RF prednisone 20 mg tablet 20 mg PO DAILY Qty: 5 0RF doxycycline hyclate 100 mg capsule 100 mg PO BID Qty: 20 0RF doxepin 25 mg capsule 25 mg PO BEDTIME@22 Qty: 30 2RF albuterol sulfate 90 mcg/actuation HFA aerosol inhaler 2 puff INHALATION QID PRN (Reason: Shortness Of Breath) Qty: 6.7 5RF gabapentin 300 mg capsule 300 mg PO BID@10,22 Qty: 60 2RF duloxetine 60 mg capsule,delayed release(DR/EC) 60 mg PO BID@10,22 Qty: 60 2RF doxycycline hyclate 100 mg capsule 100 mg PO BID Qty: 14 0RF ([facility]) 12 pairs of diabetic socks See Rx Instructions .Route .MEDSUPPLY Qty: 1 0RF Rx Instructions: As directed by [facility] ([facility]) Diabetic Shoes with 3 pairs of inserts- build up to the right See Rx Instructions .Route .MEDSUPPLY Qty: 1 0RF Rx Instructions: As directed by [facility] amiodarone [Pacerone] 200 mg tablet 200 mg PO DAILY Qty: 90 1RF nitroglycerin [Nitrostat] 0.4 mg Tablet, Sublingual 0.4 mg SUBLINGUAL Q5M PRN (Reason: Chest Pain) Rx Instructions: do not exceed 3 doses per episode ascorbate calcium (vitamin C) 500 mg Tablet 1,000 mg PO BEDTIME clobetasol 0.05 % ointment See Rx Instructions .ROUTE .COMPLEX Rx Instructions: APPLY TOPICALLY TO THE AFFECTED AREA OF BOTH HANDS NO MORE THAN TWO WEEKS PER MONTH. clindamycin phosphate 1 % lotion See Rx Instructions .ROUTE .COMPLEX Rx Instructions: APPLY TO AFFECTED AREAS IN GROIN, ARMPITS 1-2 TIMES DAILY. nystatin 100,000 unit/gram cream 1 applic topical BID PRN (Reason: Skin Irritation) Discharge Orders: Discharge ED (Routine); Ordered 06/10/24 Ordered By: Nikhil Rachel Referrals: Cristina Canela FNP-C [Primary Care Provider] - Discharge Diet: Usual diet and Low Salt Discharge Activity: Resume usual activity Patient Instructions: Acute Headache (ED), Hypertension (ED) Activity Restrictions/Additional Instructions: Continue current prescribed medications. Follow-up with your doctor within 1 week. Print Language: Irish Sign Out Sign Out Data: Patient Sign Out occurred on 06/10/24 at 18:45. Patient's care was discussed, and care was transferred from Cj Gomez DO to Nikhil Rachel MD. Coding Level of Care Code ED Apple Thinner for Chg Fwd Documented by User: Nikhil Rachel MD 06/10/24 20:52 HPI - Dizziness 2 General: Chief Complaint: Dizziness Stated Complaint: hypertension - chest pain Time Seen by Provider: 06/10/24 16:42 Related Data Home Medications ?Medication ?Instructions ?Recorded ?Confirmed nitroglycerin 0.4 mg sublingual 0.4 mg sublingual Q5M PRN Chest 06/18/21 05/25/24 tablet (Nitrostat) Pain ascorbate calcium (vitamin C) 500 1,000 mg PO BEDTIME 12/09/22 05/25/24 mg tablet clindamycin phosphate 1 % lotion See Rx Instructions . Route .COMPLEX 11/04/23 05/25/24 clobetasol 0.05 % topical ointment See Rx Instructions .Route .COMPLEX 11/04/23 05/25/24 nystatin 100,000 unit/gram topical 1 applic topical BI D PRN Skin 11/04/23 05/25/24 cream Irritation Previous Rx's ?Medication ?Instructions ?Recorded Diabetic Shoes with 3 Pairs of #1 ea 02/25/22 Inserts Diabetic shoes with 3 sets of #1 ea 05/22/22 inserts 12 pairs of diabetic socks #1 ea 10/29/22 Diabetic Shoes with 3 pairs of #1 ea 11/26/22 inserts- build up to the right blood-glucose meter #1 ea 11/27/22 prednisone 20 mg tablet 20 mg PO BID #10 tabs promethazine-DM 6.25 mg-15 mg/5 mL 5 - 10 ml PO Q6H OK N cough #240 mL 12/16/23 oral syrup amiodarone 200 mg tablet (Pacerone) 200 mg PO DAILY #9 0 tabs 03/25/24 albuterol sulfate 90 mcg/actuation 2 puff inhalation Q ID PRN 05/25/24 aerosol inhaler Shortness Of Breath #6.7 gra ms atorvastatin 40 mg tablet 40 mg PO BEDTIME@22 #30 tabs 05/25/24 blood sugar diagnostic (Blood #100 ea 05/25/24 Glucose Test strips) doxepin 25 mg capsule 25 mg PO BEDTIME@22 #30 caps 05/25/24 doxycycline hyclate 100 mg capsule 100 mg PO BID #14 c aps 05/25/24 doxycycline hyclate 100 mg capsule 100 mg PO BID #20 c aps 05/25/24 dulaglutide 4.5 mg/0.5 mL 4.5 mg (0.5 mL) SUBCUT .week ly #2 05/25/24 subcutaneous pen injector mL duloxetine 60 mg capsule,delayed 60 mg PO BID@ #6 0 caps 05/25/24 release gabapentin 300 mg capsule 300 mg PO BID@ #60 caps 05/25/24 insulin glargine 100 unit/mL (3 50 unit (0.5 mL) SUBCU T BEDTIME 05/25/24 mL) subcutaneous pen (Lantus #15 mL Solostar U-100 Insulin) lancets #100 ea 05/25/24 levocetirizine 5 mg tablet 5 mg PO BID #60 tabs metoprolol tartrate 25 mg tablet 25 mg PO Q12H #60 tab s 05/25/24 pen needle, diabetic 31 gauge x #1,200 ea 05/25/2408/06 (Comfort EZ Pen Long Bottom) prednisone 20 mg tablet 20 mg PO DAILY #5 tabs 05/25 rivaroxaban 20 mg tablet (Xarelto) 20 mg PO BEDTIME@22 #30 tabs 05/25/24 tizanidine 2 mg tablet 2 mg PO BEDTIME@22 #30 tabs 05/25/24 Allergies Allergy/AdvReac Type Severity Reaction Status Date / Time azithromycin (From Zithromax) Allergy Unknown ADR-Gastrointestinal Verified 05/25/24 08:45 Upset sulfamethoxazole (From Allergy Unknown ADR-Gastrointestinal Verified 05/25/24 08:45 Bactrim) Upset trimethoprim (From Bactrim) Allergy Unknown ADR-Gastrointestinal Verified 05/25/24 08:45 Upset PFSH ED 2 PFSH: Medical History Osteoarthritis of spine Ulcer of foot, chronic Breast cancer, right Breast cancer, left breast Open wound of foot Right great toe Gastroesophageal reflux disease Diabetes mellitus with hyperglycemia, with long-term current use of insulin Atrial fibrillation COPD (chronic obstructive pulmonary disease) Dyslipidemia SVT (supraventricular tachycardia) Asthma Benign hypertension COPD exacerbation Surgical History History of amputation of great toe H/O esophagogastroduodenoscopy (10/19/21) H/O bilateral mastectomy Status post left breast lumpectomy Status post right breast lumpectomy History of appendectomy History of hysterectomy Family History Father CAD (coronary artery disease) Congestive heart failure (CHF) Hyperlipidemia Hypertension Lung disease Stroke Other Diabetes Denies family history of Clotting disorder Dementia Psychiatric illness Chronic kidney disease (CKD) Suicide Anesthesia complication Bleeding disorder Family history of premature coronary artery disease Cancer Social History Smoking and tobacco/nicotine status: current every day tobacco/nicotine user cigarettes Packs smoked per day: 2 Second hand smoke exposure: Yes Alcohol intake: never Substance/Drug Use: never Adopted: No Caregiver/support person: No Lives independently: Yes Household members: family Housing: House Marital status: Single Number of children: 1 service: No Current occupational status: employed Current gender identity: Female Course 2 Reevaluation(s): Reevaluation #1: Blood pressure is much improved but patient still complaining of severe headache. 8 or 9 out of 10. Global headache. Doing medications for headache. Time: 19:18 Vital Signs: Vital signs: Vital Signs Temperature 98.2 F 06/10/24 16:50 Pulse Rate 78 06/10/24 21:28 Respiratory Rate 20 H 06/10/24 21:28 Blood Pressure 170/82 06/10/24 21:28 Pulse Oximetry 98 06/10/24 21:28 Oxygen Delivery Me thod Room Air 06/10/24 16:50 MDM - Dizziness Medical Decision Making Patient's hypertension is much improved. Headache is also now much improved. Patient is ready for discharge. Workup is unremarkable, CT head shows no acute finding, radiology agrees. Troponin stable. Hemorrhagic stroke, subdural hematoma, axillary hypertension, headache versus migraine Medical Records I reviewed the patient's medical records. Lab Data I reviewed the patient's lab results. 06/10/24 16:58 06/10/24 16:58 Radiology Impressions Chest X-Ray 06/10/24 16:45 IMPRESSION: No acute findings. Head CT 06/10/24 16:58 IMPRESSION: No CT evidence of acute intracranial hemorrhage, mass or acute infarction. Laboratory Results WBC 10.75 10^3/uL (3.29-11.43) 06/10/24 16:58 RBC 5.47 10^6/uL (3.85-5.65) 06/10/24 16:58 Hgb 16.20 g/dL (11.27-16.99) 06/10/24 16:58 Hct 49.7 % (36-47) H 06/10/24 16:58 MCV 90.9 fl (85-98) 06/10/24 16:58 MCH 29.6 pg (27-33) 06/10/24 16:58 MCHC 32.6 g/dL (30-55) 06/10/24 16:58 RDW 12.8 % (12.1-15.1) 06/10/24 16:58 Plt Count 259 10^3/cmm (157-399) 06/10/24 16:58 MPV 11.4 fL (7.4-10.4) H 06/10/24 16:58 Neut % (Auto) 58.7 % 06/10/24 16:58 Lymph % (Auto) 30.4 % 06/10/24 16:58 Graves % (Auto) 6.7 % 06/10/24 16:58 Eos % (Auto) 2.8 % 06/10/24 16:58 Baso % (Auto) 0.8 % 06/10/24 16:58 Neut # (Auto) 6.31 10^3/uL (1.8-7.7) 06/10/24 16:58 Lymph # (Auto) 3.3 10^3/uL (0.8-4.8) 06/10/24 16:58 Graves # (Auto) 0.7 10^3/uL (0.2-0.9) 06/10/24 16:58 Eos # (Auto) 0.3 10^3/uL (0.0-0.8) 06/10/24 16:58 Baso # (Auto) 0.1 10^3/uL (0.0-0.1) 06/10/24 16:58 Nucleated RBC % (auto) 0 % 06/10/24 16:58 Nucleated RBCs # 0.0 /100WBC 06/10/24 16:58 Sodium 142 mmol/L (136-145) 06/10/24 16:58 Potassium 4.5 mmol/L (3.5-5.1) 06/10/24 16:58 Chloride 106 mmol/L (98-107) 06/10/24 16:58 Carbon Dioxide 28 mmol/L (22-29) 06/10/24 16:58 Anion Gap 12.5 (5-19) 06/10/24 16:58 BUN 10 mg/dL (8-23) 06/10/24 16:58 Creatinine 0.5 mg/dL (0.5-0.9) 06/10/24 16:58 GFR Calculation 125.9 mL/min (90-130) 06/10/24 16:58 Glucose 192 mg/dL (65-115) H 06/10/24 16:58 Calculated Osmolality 298 mOsm/kg (285-295) H 06/10/24 16:58 Calcium 8.2 mg/dL (8.5-10.5) L 06/10/24 16:58 Total Bilirubin 0.3 mg/dL (0.15-1.2) 06/10/24 16:58 AST 10 U/L (0-32) 06/10/24 16:58 ALT 10 U/L (0-33) 06/10/24 16:58 Alkaline Phosphatase 141 U/L (35-105) H 06/10/24 16:58 Troponin T Baseline 17 ng/L (0-10) H 06/10/24 16:58 Troponin T 120 Minute 17.62 ng/L (0-10) H 06/10/24 18:51 Delta Troponin T 0.62 ABS# (0-10) 06/10/24 18:51 Total Protein 4.9 g/dL (6.6-8.7) L 06/10/24 16:58 Albumin 2.7 g/dL (3.5-5.2) L 06/10/24 16:58 Globulin 2.2 g/dL (1.3-4.6) 06/10/24 16:58 All radiology interpretation(s) finalized by discharge ED provider radiology interpretation(s): See above EKG Data EKG 1: I personally reviewed and interpreted this EKG as follows: EKG interpretation date: 06/10/24 EKG interpretation time: 18:48 Prior EKG tracings: not available for review Interpretation: Mild axis change, sinus rhythm with singular PAC. OK interval 188, QTc 450 Discharge Plan Discharge Patient Disposition: Home Clinical Impression: Hypertensive urgency Headache Qualifiers: Headache type: unspecified Headache chronicity pattern: acute headache I ntractability: not intractable Qualified Code(s): R51.9 - Headache, unspecified Condition: Stable Prescriptions: No Action (DME) Diabetic Shoes with 3 Pairs of Inserts See Rx Instructions .Route .MEDSUPPLY Qty: 1 0RF Rx Instructions: As directed by HOME ([facility]) Diabetic shoes with 3 sets of inserts See Rx Instructions .Route .MEDSUPPLY Qty: 1 0RF Rx Instructions: As directed by [facility] ([facility]) blood-glucose meter [facility] [place] See Rx Instructions .Route Qty: 1 0RF Rx Instructions: As directed promethazine-DM 6.25-15 mg/5 mL syrup 5 - 10 ml PO Q6H PRN (Reason: cough) Qty: 240 0RF prednisone 20 mg tablet 20 mg PO BID Qty: 10 0RF tizanidine 2 mg tablet 2 mg PO BEDTIME@22 Qty: 30 2RF Xarelto 20 mg tablet 20 mg PO BEDTIME@22 Qty: 30 2RF (DME) pen needle, diabetic [Comfort EZ Pen Long Bottom] 31 gauge x 5/16 needle See Rx Instructions .Route Qty: 1200 2RF Rx Instructions: As directed levocetirizine 5 mg tablet 5 mg PO BID Qty: 60 5RF ([facility]) lancets [facility] [place] See Rx Instructions .Route Qty: 100 3RF Rx Instructions: once daily dulaglutide 4.5 mg/0.5 mL pen injector 4.5 mg SUBCUT .weekly Qty: 2 2RF Rx Instructions: ON FRIDAY ([facility]) Blood Glucose Test Strip See Rx Instructions .Route Qty: 100 3RF Rx Instructions: once daily insulin glargine [Lantus Solostar U-100 Insulin] 100 unit/mL (3 mL) insulin pen 50 unit SUBCUT BEDTIME Qty: 15 2RF atorvastatin 40 mg tablet 40 mg PO BEDTIME@22 Qty: 30 5RF metoprolol tartrate 25 mg tablet 25 mg PO Q12H Qty: 60 2RF prednisone 20 mg tablet 20 mg PO DAILY Qty: 5 0RF doxycycline hyclate 100 mg capsule 100 mg PO BID Qty: 20 0RF doxepin 25 mg capsule 25 mg PO BEDTIME@22 Qty: 30 2RF albuterol sulfate 90 mcg/actuation HFA aerosol inhaler 2 puff INHALATION QID PRN (Reason: Shortness Of Breath) Qty: 6.7 5RF gabapentin 300 mg capsule 300 mg PO BID@,22 Qty: 60 2RF duloxetine 60 mg capsule,delayed release(DR/EC) 60 mg PO BID@10,22 Qty: 60 2RF doxycycline hyclate 100 mg capsule 100 mg PO BID Qty: 14 0RF (DME) 12 pairs of diabetic socks See Rx Instructions .Route .MEDSUPPLY Qty: 1 0RF Rx Instructions: As directed by [facility] (DME) Diabetic Shoes with 3 pairs of inserts- build up to the right See Rx Instructions .Route .MEDSUPPLY Qty: 1 0RF Rx Instructions: As directed by [facility] amiodarone [Pacerone] 200 mg tablet 200 mg PO DAILY Qty: 90 1RF nitroglycerin [Nitrostat] 0.4 mg Tablet, Sublingual 0.4 mg SUBLINGUAL Q5M PRN (Reason: Chest Pain) Rx Instructions: do not exceed 3 doses per episode ascorbate calcium (vitamin C) 500 mg Tablet 1,000 mg PO BEDTIME clobetasol 0.05 % ointment See Rx Instructions .ROUTE .COMPLEX Rx Instructions: APPLY TOPICALLY TO THE AFFECTED AREA OF BOTH HANDS NO MORE THAN TWO WEEKS PER MONTH. clindamycin phosphate 1 % lotion See Rx Instructions .ROUTE .COMPLEX Rx Instructions: APPLY TO AFFECTED AREAS IN GROIN, ARMPITS 1-2 TIMES DAILY. nystatin 100,000 unit/gram cream 1 applic topical BID PRN (Reason: Skin Irritation) Discharge Orders: Discharge ED (Routine); Ordered 06/10/24 Ordered By: Nikhil Rachel Referrals: Cristina Canela FNP-C [Primary Care Provider] - Discharge Diet: Usual diet and Low Salt Discharge Activity: Resume usual activity Patient Instructions: Acute Headache (ED), Hypertension (ED) Activity Restrictions/Additional Instructions: Continue current prescribed medications. Follow-up with your doctor within 1 week. Print Language: Irish Sign Out Sign Out Data: Patient Sign Out occurred on 06/10/24 at 18:45. Patient's care was discussed, and care was transferred from Cj Gomez DO to Nikhil Rachel MD. Coding Level of Care Code ED Apple Thinner for Briana Nj
--- NOTE | 2024-06-10 16:58 | CTR_ITS ---
PROCEDURE INFORMATION: Exam: CT Head Without Contrast Exam date and time: 06/10/2024 5:14 PM Age: 59 years old Clinical indication: Injury or trauma; Fall; Blunt trauma (contusions or hematomas); Without loss of consciousness; Injury date: 06/08/2024; Additional info: Head trauma, on anticoagulants. TECHNIQUE: Imaging protocol: Computed tomography of the head without contrast. Radiation optimization: All CT scans at this facility use at least one of these dose optimization techniques: automated exposure control; mA and/or kV adjustment per patient size (includes targeted exams where dose is matched to clinical indication); or iterative reconstruction. COMPARISON: CT head wo con* [id number] 06/28/2022 12:40 PM RADIATION DOSE METRICS: Total DLP (mGy-cm): 1055.68 FINDINGS: Brain: No acute intracranial hemorrhage. No edema. No mass effect. No focal abnormality in brain parenchyma. Cerebral ventricles: No ventriculomegaly. Paranasal sinuses: Visualized sinuses are unremarkable. No fluid levels. Mastoid air cells: No mastoid effusion. Bones: Unremarkable. No acute fracture. Soft tissues: Unremarkable. CT/CT head wo con* [id number] IMPRESSION: No CT evidence of acute intracranial hemorrhage, mass or acute infarction.
[2024-06-10 17:06] LABS: Basophils # 0.1 10^3/uL (0.0-0.1); Basophils % 0.8 %; Eosinophils # 0.3 10^3/uL (0.0-0.8); Eosinophils % 2.8 %; Hematocrit 49.7 % (36-47); Lymphocytes # 3.3 10^3/uL (0.8-4.8); Lymphocytes % 30.4 %; Mean Corpuscular HGB Conc 32.6 g/dL (30-55); Mean Corpuscular Hemoglobin 29.6 pg (27-33); Mean Corpuscular Volume 90.9 fl (85-98); Mean Platelet Volume 11.4 fL (7.4-10.4); Monocytes # 0.7 10^3/uL (0.2-0.9); Monocytes % 6.7 %; Neutrophils # 6.31 10^3/uL (1.8-7.7); Neutrophils % 58.7 %; Nucleated Red Blood Cells % 0 %; Platelet Count 259 10^3/cmm (157-399); Red Blood Count 5.47 10^6/uL (3.85-5.65); Red Cell Distribution Width 12.8 % (12.1-15.1); White Blood Count 10.75 10^3/uL (3.29-11.43)
[2024-06-10] MEDS: hyDRALAzine 20 mg/mL INJ 1 mL IVP (17:09)
[2024-06-10] MEDS: enalaprilat 2.5 mg/2 mL SDV 1.25 MG IVP (17:09)
[2024-06-10] MEDS: aspirin 81 mg Chew Tablet 324 MG PO (17:09)
[2024-06-10 17:27] LABS: Troponin(5th) Baseline 17 ng/L (0-10)
[2024-06-10 17:28] LABS: Alanine Aminotransferase 10 U/L (0-33); Albumin Level 2.7 g/dL (3.5-5.2); Alkaline Phosphatase 141 U/L (35-105); Anion Gap 12.5 (5-19); Aspartate Amino Transferase 10 U/L (0-32); Blood Urea Nitrogen 10 mg/dL (8-23); Calcium 8.2 mg/dL (8.5-10.5); Carbon Dioxide 28 mmol/L (22-29); Chloride 106 mmol/L (98-107); Creatinine Clr Calc Pharmacy 153.7782; Globulin 2.2 g/dL (1.3-4.6); Glomerular Filtration Rate 125.9 mL/min (90-130); Glucose 192 mg/dL (65-115); Osmolality Calculated 298 mOsm/kg (285-295); Potassium 4.5 mmol/L (3.5-5.1); Sodium 142 mmol/L (136-145); Total Bilirubin 0.3 mg/dL (0.15-1.2); Total Protein 4.9 g/dL (6.6-8.7)
--- NOTE | 2024-06-10 18:43 | ECG_ITS ---
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 Measurements Intervals [place] Rate: 69 P: 48 UT: 188 QRS: 8 QRSD: 103 T: 68 QT: 430 QTc: 464 Interpretive Statements SINUS RHYTHM WITH OCCASIONAL SUPRAVENTRICULAR PREMATURE COMPLEXES POSSIBLE ANTERIOR MYOCARDIAL INFARCTION , OF INDETERMINATE AGE [30 ms Q WAVE IN V3/V4, OR R < 0.2 mV IN V4] Compared to ECG 06/10/2024 16:45:17 No significant changes Electronically Signed On 06-12-2024 07:48:11 CDT by Santo Hinojosa M.D. [email or web address]
[2024-06-10 19:11] VITALS: BP 157/72; PULSE 71; RESP 17; O2SAT 98
[2024-06-10 19:33] LABS: Troponin 5 2HR 17.62 ng/L (0-10); Troponin 5 2HR Delta 0.62 ABS# (0-10)
[2024-06-10] MEDS: diphenhydrAMINE 50 mg/mL SDV 1mL 12.5 MG IVP (19:36)
[2024-06-10] MEDS: ketorolac 30 mg/mL INJ 15 MG IVP (19:37)
[2024-06-10] MEDS: prochlorperazine 10 mg/2 mL Inj 5 MG IVP (19:37)
[2024-06-10 21:28] VITALS: BP 170/82; PULSE 78; RESP 20; O2SAT 98
== END 2024-06-10 21:29 | disposition home or self-care (01) ==
PROVIDERS: Family Medicine; Emergency Provider Emergency Medicine; PCP Nurse Practitioner Family
DX: R51.9 Headache, unspecified (principal); I10 Essential (primary) hypertension; Z79.4 Long term (current) use of insulin; F17.210 Nicotine dependence, cigarettes, uncomplicated; J44.9 Chronic obstructive pulmonary disease, unspecified; E78.5 Hyperlipidemia, unspecified; E11.9 Type 2 diabetes mellitus without complications; Z85.3 Personal history of malignant neoplasm of breast
CPT/HCPCS: 36415; 70450; 71045; 80053; 84484; 85025; 93005; 96374; 96375; 99285; J0360; J0780; J1200; J1885; J9999

== ENCOUNTER → 2024-06-30 13:59 | Outpatient (BNVA) | payer MEDICAID, SELFPAY | PROVIDERS: PCP Nurse Practitioner Family; Visit Provider Nurse Practitioner Family | DX: N18.1 Chronic kidney disease, stage 1 (principal) | CPT/HCPCS: 82043 ==

== ENCOUNTER → 2024-07-01 08:10 | Outpatient (BNVA) | payer MEDICAID, SELFPAY | PROVIDERS: PCP Nurse Practitioner Family; Visit Provider Nurse Practitioner Family | DX: N18.1 Chronic kidney disease, stage 1 (principal) | CPT/HCPCS: 80069 ==

== ENCOUNTER → 2024-07-12 13:56 | Outpatient (BNVA) | payer MEDICAID, SELFPAY | PROVIDERS: PCP Nurse Practitioner Family; Visit Provider Internal Medicine Cardiovascular Disease | DX: I48.0 Paroxysmal atrial fibrillation (principal); Z79.01 Long term (current) use of anticoagulants; I10 Essential (primary) hypertension; E78.5 Hyperlipidemia, unspecified; F17.210 Nicotine dependence, cigarettes, uncomplicated | CPT/HCPCS: 99214 ==

== ENCOUNTER → 2024-07-13 10:31 | Outpatient (BNVA) | payer MEDICAID, SELFPAY | PROVIDERS: PCP Nurse Practitioner Family; Visit Provider Podiatrist Foot & Ankle Surgery | DX: E11.42 Type 2 diabetes mellitus with diabetic polyneuropathy (principal); L60.3 Nail dystrophy; L84 Corns and callosities; M14.672 Charcot's joint, left ankle and foot; R60.0 Localized edema; Z89.411 Acquired absence of right great toe | CPT/HCPCS: 11056; 11721 ==

== ENCOUNTER 2024-07-27 14:47 | Inpatient (IN) | payer MEDICAID, SELFPAY ==
[2024-07-27] VITALS (12 sets, daily range): BP systolic 124–159; BP diastolic 57–89; PULSE 62–72; RESP 16–24; TEMP 36.7–37.1; O2SAT 92–99; BMI 43.0
--- NOTE | 2024-07-27 | USCV_ITS ---
[facility] Age: 59 Gender: F : 1965 Exam Date: 07/27/2024 18:31 Ordering Phys: Sunitha Danielson Technologist: Turner Lynch [place] [facility] [place]: chest pain, fatigue, IDDM, history of Afib, long- term smoker, continues smoking. BP: 151 / 69 HR: 63 Rhythm: Sinus Technical Quality: Adequate MEASUREMENTS (Male / Female) Normal Values 2D ECHO LV Diastolic Diameter PLAX 3.7 cm 4.2 - 5.9 / 3.9 - 5.3 cm IVS Diastolic Thickness 1.8 cm 0.6 - 1.0 / 0.6 - 0.9 cm IVS Systolic Thickness 2.2 cm LVPW Diastolic Thickness 1.8 cm 0.6 - 1.0 / 0.6 - 0.9 cm LVPW Systolic Thickness 2.2 cm LVOT Diameter 2.1 cm LV Ejection Fraction 2D Teich 60.6 % LV Ejection Fraction MOD 4C 56.2 % LV Ejection Fraction MOD 2C 64.4 % LV Ejection Fraction 2C AL 69.1 % LA Diameter 3.5 cm Aorta at Sinotubular Diameter 3.3 cm IVC Diameter 1.7 cm M-MODE LA Ao Ratio MM 1.1 AV Cusp Separation MM 2.3 cm DOPPLER AV Peak Velocity 117.0 cm/s LVOT Peak Velocity 86.0 cm/s AV Area Cont Eq vti 3.3 cm squared AV Area Cont Eq pk 2.6 cm squared MV Peak Velocity 65.0 cm/s MV Area PHT 2.6 cm squared Mitral E to A Ratio 0.7 TV Peak E Velocity 40.0 cm/s PV Peak Velocity 98.0 cm/s FINDINGS Left Ventricle Normal left ventricular size and systolic function, EF 60%.moderate left ventricular hypertrophy. No regional wall motion abnormalities. Grade I/IV diastolic dysfunction (abnormal relaxation filling pattern), normal to mildly elevated filling pressures. Right Ventricle The right ventricle is normal in size and function. Right Atrium The right atrium is normal in size. Left Atrium Mildly increased left atrial size. Mitral Valve Trace mitral valve regurgitation. Aortic Valve No gross abnormalities noted Tricuspid Valve Mild tricuspid valve regurgitation. Pulmonic Valve Pulmonic valve not well visualized. Pericardium Normal pericardium without effusion. Aorta Normal ascending aorta dimension. IVC Normal inferior vena cava. CONCLUSIONS Normal left ventricular size and systolic function, EF 60%.moderate left ventricular hypertrophy. No regional wall motion abnormalities. Grade I/IV diastolic dysfunction (abnormal relaxation filling pattern), normal to mildly elevated filling pressures. Trace mitral valve regurgitation. Mild tricuspid valve regurgitation. There is no pericardial effusion. There are no intracardiac masses. Compared to the study from 12/11/2022, the LV ejection fraction appears to have improved Dr Theodora Valladares MD [facility] (Electronically Signed) Final Date: 27 Jul 2024 21:30 S
--- NOTE | 2024-07-27 14:50 | ECG_ITS ---
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 Measurements Intervals [place] Rate: 64 P: -9 DE: 178 QRS: 5 QRSD: 109 T: 57 QT: 457 QTc: 473 Interpretive Statements SINUS RHYTHM WITH SINUS ARRHYTHMIA PROLONGED QT INTERVAL INTERPRETATION BASED ON A DEFAULT AGE OF 40 YEARS Compared to ECG 06/10/2024 18:43:11 Prolonged QT interval now present Myocardial infarct finding no longer present Electronically Signed On 07-28-2024 17:45:21 CDT by Theodora Valladares M.D. [id number]
--- NOTE | 2024-07-27 15:01 | XR_ITS ---
WS: [id number] XR chest 1V portable [id number] REASON FOR EXAM: chest pain FINDINGS: The chest is unchanged compared to 11/04/2023. Mild tortuosity and ectasia of the thoracic aorta. Heart is at the upper limits of normal. Calcified granulomatous disease bilaterally. No acute pulmonary parenchymal or pleural abnormality. Moderate osteoarthritis in the left shoulder XR/XR chest 1V portable [id number] IMPRESSION: Stable chest with no acute abnormality.
[2024-07-27] MEDS: heparin 5,000 unit/mL INJ 1 mL 4000 UNIT IVP (15:04)
[2024-07-27] MEDS: clopidogrel 300 mg Tablet 600 MG PO (15:08)
[2024-07-27] MEDS: aspirin 325 mg Tablet PO (15:08)
--- NOTE | 2024-07-27 15:08 | ED_ITS ---
HPI - Chest Pain 2 General: Chief Complaint: Chest Pain Stated Complaint: Stemi Time Seen by Provider: 07/27/24 14:52 History of Present Illness: 59-year-old female with past medical his tory of diabetes, A-fib on Xarelto is brought in by EMS as a possible STEMI. Patient reports malaise and generalized fatigue over the past several days as well as diarrhea and mild cough that is nonproductive reports some chills no fever no overt chest pain. No shortness of breath. No abdominal pain or vomiting. She went to the the primary doctor clinic and they felt like her oxygen was low so they called ambulance, upon arrival to ambulance there EKG demonstrated abnormal ST elevations in the inferior leads and so code STEMI was called and patient was transported she was given IV fluids. She arrives she states she never really had any chest pain but had some chest heaviness no nausea no diaphoresis. She feels improved now no chest pain or discomfort at this time. Her EKG upon arrival is not diagnostic of a STEMI, discussed with interventional physician on-call Dr. Rockwell, recommends trending troponins and overnight observation in the hospital for now not a STEMI code activation. Associated symptoms: Deny abdominal pain, dyspnea, fever(s), nausea, palpitations or vomiting Related Data Home Medications ?Medication ?Instructions ?Recorded ?Confirmed nitroglycerin 0.4 mg sublingual 0.4 mg sublingual Q5M PRN Chest 06/18/21 07/27/24 tablet (Nitrostat) Pain ascorbate calcium (vitamin C) 500 1,000 mg PO BEDTIME 12/09/22 07/27/24 mg tablet clobetasol 0.05 % topical ointment See Rx Instructions .Route .COMPLEX 11/04/23 07/27/24 nystatin 100,000 unit/gram topical 1 applic topical BI D PRN Skin 11/04/23 07/27/24 cream Irritation Previous Rx's ?Medication ?Instructions ?Recorded Diabetic Shoes with 3 Pairs of #1 ea 02/25/22 Inserts Diabetic shoes with 3 sets of #1 ea 05/22/22 inserts 12 pairs of diabetic socks #1 ea 10/29/22 Diabetic Shoes with 3 pairs of #1 ea 11/26/22 inserts- build up to the right blood-glucose meter #1 ea 11/27/22 promethazine-DM 6.25 mg-15 mg/5 mL 5 - 10 ml PO Q6H UT N cough #240 mL 12/16/23 oral syrup amiodarone 200 mg tablet (Pacerone) 200 mg PO DAILY #9 0 tabs 03/25/24 albuterol sulfate 90 mcg/actuation 2 puff inhalation Q ID PRN 05/25/24 aerosol inhaler Shortness Of Breath #6.7 gra ms atorvastatin 40 mg tablet 40 mg PO BEDTIME@22 #30 tabs 05/25/24 blood sugar diagnostic (Blood #100 ea 05/25/24 Glucose Test strips) doxepin 25 mg capsule 25 mg PO BEDTIME@22 #30 caps 05/25/24 dulaglutide 4.5 mg/0.5 mL 4.5 mg (0.5 mL) SUBCUT .week ly #2 05/25/24 subcutaneous pen injector mL duloxetine 60 mg capsule,delayed 60 mg PO BID@10,22 #6 0 caps 05/25/24 release gabapentin 300 mg capsule 300 mg PO BID@10,22 #60 caps 05/25/24 insulin glargine 100 unit/mL (3 50 unit (0.5 mL) SUBCU T BEDTIME 05/25/24 mL) subcutaneous pen (Lantus #15 mL Solostar U-100 Insulin) lancets #100 ea 05/25/24 levocetirizine 5 mg tablet 5 mg PO BID #60 tabs metoprolol tartrate 25 mg tablet 25 mg PO Q12H #60 tab s 05/25/24 pen needle, diabetic 31 gauge x #1,200 ea 05/25/2408/06 (Comfort EZ Pen Gonvick) rivaroxaban 20 mg tablet (Xarelto) 20 mg PO BEDTIME@22 #30 tabs 05/25/24 tizanidine 2 mg tablet 2 mg PO BEDTIME@22 #30 tabs 05/25/24 lisinopril 40 mg tablet 40 mg PO DAILY #30 tabs 05/18 blood sugar diagnostic (True #300 ea 06/24/24 Metrix Glucose Test Strip) blood-glucose meter (True Metrix #1 ea 06/24/24 Glucose Meter) lancets 31 gauge #300 ea 06/24/24 hydrochlorothiazide 25 mg tablet 25 mg PO DAILY #30 ta bs 07/12/24 doxycycline hyclate 100 mg tablet 100 mg PO BID #20 ta bs 07/20/24 prednisone 20 mg tablet 20 mg PO BID #10 tabs Allergies Allergy/AdvReac Type Severity Reaction Status Date / Time azithromycin (From Zithromax) Allergy Unknown ADR-Gastrointestinal Verified 07/27/24 17:01 Upset sulfamethoxazole (From Allergy Unknown ADR-Gastrointestinal Verified 07/27/24 17:01 Bactrim) Upset trimethoprim (From Bactrim) Allergy Unknown ADR-Gastrointestinal Verified 07/27/24 17:01 Upset Review of Systems 2 Const: Reports: chills and malaise; Denies: fever(s), body aches or change in appetite Eyes: Denies: change in vision, eye discharge or eye redness ENMT: Denies: throat pain, hoarseness, ear or mastoid pain, ear discharge, nasal discharge or nasal congestion Card: Denies: chest pain, palpitations, irregular heart rhythm or edema Resp: Reports: non-productive cough; Denies: dyspnea, productive cough or wheezing GI: Reports: diarrhea; Denies: abdominal pain, nausea, vomiting, constipation or hematochezia : Reports: oliguria; Denies: difficulty voiding, dysuria, urinary frequency, urinary urgency, urinary hesitancy or hematuria Musc: Denies: joint swelling, joint redness, joint warmth or joint stiffness Skin/Breast: Denies: rash Neuro: Denies: headache(s) Psych: Denies: suicidal ideation or homicidal ideation Tio/Lymph: Denies: enlarged lymph nodes or tender lymph nodes PFSH ED 2 PFSH: Medical History Osteoarthritis of spine Ulcer of foot, chronic Breast cancer, right Breast cancer, left breast Open wound of foot Right great toe Gastroesophageal reflux disease Diabetes mellitus with hyperglycemia, with long-term current use of insulin Atrial fibrillation COPD (chronic obstructive pulmonary disease) Dyslipidemia SVT (supraventricular tachycardia) Asthma Benign hypertension COPD exacerbation Surgical History History of amputation of great toe H/O esophagogastroduodenoscopy (10/19/21) H/O bilateral mastectomy Status post left breast lumpectomy Status post right breast lumpectomy History of appendectomy History of hysterectomy Family History Father CAD (coronary artery disease) Congestive heart failure (CHF) Hyperlipidemia Hypertension Lung disease Stroke Other Diabetes Denies family history of Clotting disorder Dementia Psychiatric illness Chronic kidney disease (CKD) Suicide Anesthesia complication Bleeding disorder Family history of premature coronary artery disease Cancer Social History Smoking and tobacco/nicotine status: current every day tobacco/nicotine user cigarettes Packs smoked per day: 2 Second hand smoke exposure: Yes Alcohol intake: never Substance/Drug Use: never Adopted: No Caregiver/support person: No Lives independently: Yes Household members: family Housing: House Marital status: Single Number of children: 1 service: No Current occupational status: employed Current gender identity: Female Physical Exam 2 Const: COMMON NORMALS: no acute distress and patient oriented x3 GENERAL APPEARANCE: cooperative HENMT: COMMON NORMALS: normocephalic, moist oral mucous membranes and oropharynx normal HEAD & SCALP: normocephalic NOSE: No nasal discharge present THROAT: tonsils normal Eye: COMMON NORMALS: Equal, round and reactive pupils present GENERAL EYE: appearance normal, both eyes and all related structures PUPIL: Yes Equal, round and reactive pupils present Neck/C-Spine: GENERAL: Yes normal visual inspection CERVICAL SPINE: Yes cervical ROM normal and No Cervical spine tenderness Lymph: LYMPHATIC: no lymphadenopathy noted Chest: COMMONS NORMALS: normal inspection of the chest Resp: COMMON NORMALS: normal respiratory effort and clear to auscultation bilaterally AUSCULTATION: clear to auscultation bilaterally Cardio: COMMON NORMALS: regular rate, regular rhythm and No murmurs present (Cardio) RATE: regular rate RHYTHM: regular rhythm GI: COMMON NORMALS: Normal to inspection, nondistended, normoactive bowel sounds present, Soft to palpation and non-tender PALPATION: Yes Soft to palpation Extremity: GENERAL: No cyanosis and No edema Neuro: COMMON NORMALS: patient oriented x3, moves all extremities, no focal motor deficits and gait normal SPEECH: speech normal Psych: COMMON NORMALS: mental status grossly normal Skin: COMMON NORMALS: no wounds Course 2 Vital Signs: Vital signs: Vital Signs Temperature 98.1 F 07/27/24 14:47 Pulse Rate 64 07/27/24 14:47 Respiratory Rate 16 07/27/24 14:47 Blood Pressure 151/69 07/27/24 14:47 Pulse Oximetry 98 07/27/24 14:47 Oxygen Delivery Me thod Nasal Cannula 07/27/24 14:47 MDM - Chest Pain Medical Decision Making Workup thus far reveals troponin essentially negative at this time baseline, repeat troponin is pending. CBC demonstrates leukocytosis this may be in part due to dehydration and in part due to recent steroids that she completed for URI type symptoms. Her glucose is 500 as well but no DKA no anion gap. Her creatinine 1.6 elevated but this is baseline for her. She is chest pain-free at this time she feels fairly well she is improving with IV fluids. Cardiology Dr. Rockwell recommended overnight observation and trend troponins. And they will consult on her. Patient agrees to stay inpatient. Case discussed with Dr. Joseph hospitalist who recommends admission to the cardiac stepdown Lab Data 07/27/24 15:06 07/27/24 15:06 Radiology Impressions Chest X-Ray 07/27/24 15:01 IMPRESSION: Stable chest with no acute abnormality. Laboratory Results WBC 19.34 10^3/uL (3.29-11.43) H 07/27/24 15:06 RBC 5.43 10^6/uL (3.85-5.65) 07/27/24 15:06 Hgb 16.10 g/dL (11.27-16.99) 07/27/24 15:06 Hct 47.9 % (36-47) H 07/27/24 15:06 MCV 88.2 fl (85-98) 07/27/24 15:06 MCH 29.7 pg (27-33) 07/27/24 15:06 MCHC 33.6 g/dL (30-55) 07/27/24 15:06 RDW 12.7 % (12.1-15.1) 07/27/24 15:06 Plt Count 266 10^3/cmm (157-399) 07/27/24 15:06 MPV 11.7 fL (7.4-10.4) H 07/27/24 15:06 Neut % (Auto) 71.9 % 07/27/24 15:06 Lymph % (Auto) 19.6 % 07/27/24 15:06 Henry % (Auto) 6.1 % 07/27/24 15:06 Eos % (Auto) 1.5 % 07/27/24 15:06 Baso % (Auto) 0.3 % 07/27/24 15:06 Neut # (Auto) 13.89 10^3/uL (1.8-7.7) H 07/27/24 15:06 Lymph # (Auto) 3.8 10^3/uL (0.8-4.8) 07/27/24 15:06 Henry # (Auto) 1.2 10^3/uL (0.2-0.9) H 07/27/24 15:06 Eos # (Auto) 0.3 10^3/uL (0.0-0.8) 07/27/24 15:06 Baso # (Auto) 0.1 10^3/uL (0.0-0.1) 07/27/24 15:06 Nucleated RBC % (auto) 0 % 07/27/24 15:06 Nucleated RBCs # 0.0 /100WBC 07/27/24 15:06 Sodium 130 mmol/L (136-145) L 07/27/24 15:06 Potassium 4.5 mmol/L (3.5-5.1) 07/27/24 15:06 Chloride 92 mmol/L (98-107) L 07/27/24 15:06 Carbon Dioxide 25 mmol/L (22-29) 07/27/24 15:06 Anion Gap 17.5 (5-19) 07/27/24 15:06 BUN 56 mg/dL (8-23) H 07/27/24 15:06 Creatinine 1.6 mg/dL (0.5-0.9) H 07/27/24 15:06 GFR Calculation 32.9 mL/min (90-130) L 07/27/24 15:06 Glucose 503 mg/dL (65-115) H* 07/27/24 15:06 Calculated Osmolality 308 mOsm/kg (285-295) H 07/27/24 15:06 Calcium 8.1 mg/dL (8.5-10.5) L 07/27/24 15:06 Magnesium 2.0 mg/dL (1.7-2.3) 07/27/24 15:06 Total Bilirubin 0.5 mg/dL (0.15-1.2) 07/27/24 15:06 AST 7 U/L (0-32) 07/27/24 15:06 ALT 12 U/L (0-33) 07/27/24 15:06 Alkaline Phosphatase 132 U/L (35-105) H 07/27/24 15:06 Troponin T Baseline 18 ng/L (0-10) H 07/27/24 15:06 Total Protein 5.1 g/dL (6.6-8.7) L 07/27/24 15:06 Albumin 2.8 g/dL (3.5-5.2) L 07/27/24 15:06 Globulin 2.3 g/dL (1.3-4.6) 07/27/24 15:06 All radiology interpretation(s) finalized by discharge Discharge Plan Discharge Patient Disposition: Admitted As Inpatient Clinical Impression: Chest pain, Hyperglycemia Condition: Stable Coding Level of Care Code ED Supervisor Molding for Briana Nj
--- NOTE | 2024-07-27 15:16 | P.CONIM_ITS ---
<Statement entered by Lamin Tan MD - 07/27/24 21:23> Patient was evaluated and cared for in conjunction with an advanced practice practitioner. I personally examined the patient and reviewed the chart and all pertinent data including imaging, telemetry, and laboratory results. I discussed the patient in detail with the advanced practice practitioner. Please see their note for complete H&P testing result and agreed upon plan of care for the patient. 59-year-old female past medical history as defined below presented with atypical chest pressure, STEMI patient was alerted, twelve-lead EKG was not consistent with significant ST elevation therefore it was called off. Advised to rule out for acute coronary syndrome GENERAL: Patient is alert, awake and oriented x3. HEART: Regular S1 and S2. No murmur, rub or gallop. LUNGS: Clear to auscultate bilaterally. CENTRAL NERVOUS SYSTEM: Grossly nonfocal. EXTREMITIES: Lower extremities with out edema bilaterally. Fatigue Atrial fibrillation Atypical chest pressure Rule out for acute coronary syndrome Echocardiogram to assess LV function and wall motion abnormality Consider extracardiac cause for atypical chest pressure Providers/Reason For Consult 2 Consulting Physician/Specialty*: Dr Jono Tan, cardiology Reason for Consult*: possible STEMI Requesting Physician: Dr Jurado Primary Care Provider: RICHARD Sotelo History of Present Illness History of Present Illness Soni Head is a 59 year old female with past medical history of atrial fibrillation, SVT, cardioversion in 2019 for atrial flutter, hypertension, diabetes, dyslipidemia, COPD, atypical chest pain, history of breast cancer s/p mastectomy. She was brought in by EMS today as a STEMI alert, which has been called off. EKG strip brought by EMS shows early repolarization, not convincing for STEMI. EKG in the ER shows the same early repolarization. She reports history of presyncope and weakness starting on Friday, she actually fell at home at that time, and had difficulty getting back up. Since then she has had no energy and some shortness of breath with exertion. Did not have any chest pain or pressure at that time on Friday, and has not had any until today when she was in the ambulance. She did not note any rapid or irregular heartbeat. The fatigue was present all day yesterday and she felt more weak and fatigued today which prompted her to call 911. Her blood pressure has been high lately at home with systolic readings over 200. In the emergency room blood pressure readings have ranged in the 150s over 60s. Notably she was seen by her PCP on 07/20/2024 for a tick bite, was started on doxycycline and given an injection of Decadron as well as prednisone 20 mg twice a day total of 10 tabs. She was seen in the clinic by Dr. Valladares last month, he noted she was started on hydrochlorothiazide 25 mg daily by nephrology, and prior to that lisinopril had been increased to 40 mg daily due to uncontrolled hypertension. She has not had an echocardiogram since 2022, most recent Lexiscan stress test was in 2019-negative for ischemia. Previous echocardiogram had poor ultrasonic windows however LV function appeared mildly reduced with mild mitral regurgitation, dilated IVC. She was referred for SVT/atrial fibrillation ablation in [place] in the past, but insurance would not cover the procedure. She was started on amiodarone, has had recurrence of atrial flutter/fibrillation in 2022 and 2023 requiring medication to convert back to sinus rhythm. An event monitor in 2021 showed asymptomatic supraventricular tachycardia (possibly sinus), with a 32-second episode (rate 142 bpm) and a 22 second episode (rate 150bpm), as well as a 2.7- second pause also asymptomatic. Total SVE burden 2%, VE burden less than 1%. Baseline troponin 18. Creatinine 1.6, was 0.7 last month. Noted WBC 19, glucose 503, sodium 130. Review of Systems 2 Const: Reports: fatigue and malaise; Denies: fever(s), chills, change in weight or diaphoresis Eyes: Denies: change in vision ENMT: Denies: epistaxis Card: Reports: chest pain and dyspnea on exertion; Denies: palpitations, irregular heart rhythm, edema, syncope, pre-syncope, orthopnea or leg pain with exertion Resp: Denies: dyspnea, productive cough or wheezing GI: Denies: nausea, vomiting, hematemesis, hematochezia or melena : Denies: hematuria Musc: Denies: extremity swelling Tio/Lymph: Denies: easy bruising or easy bleeding Medications/Allergies Home Medications ?Medication ?Instructions ?Recorded ?Confirmed ?Last Taken ?Type nitroglycerin 0.4 mg sublingual 0.4 mg sublingual Q5M PRN Chest 03/07/27/24 12/20/22 History tablet (Nitrostat) Pain Diabetic Shoes with 3 Pairs of #1 ea 02/25/22 07/27/24 12/20/22 Rx Inserts Diabetic shoes with 3 sets of #1 ea 05/22/22 07/27/24 12/20/22 Rx inserts 12 pairs of diabetic socks #1 ea 10/29/22 07/27/24 Rx Diabetic Shoes with 3 pairs of #1 ea 11/26/22 07/27/24 12/20/22 Rx inserts- build up to the right blood-glucose meter #1 ea 11/27/22 07/27/24 09/12/14 Rx ascorbate calcium (vitamin C) 500 1,000 mg PO BEDTIME 12/09/22 07/27/24 07/26/24 History mg tablet clobetasol 0.05 % topical ointment See Rx Instructions .Route .COMPLEX 11/04/23 07/27/24 Unknown History nystatin 100,000 unit/gram topical 1 applic topical BI D PRN Skin 11/04/23 07/27/24 Unknown History cream Irritation promethazine-DM 6.25 mg-15 mg/5 mL 5 - 10 ml PO Q6H NV N cough #240 mL 12/16/23 07/27/24 Unknown Rx oral syrup amiodarone 200 mg tablet (Pacerone) 200 mg PO DAILY #9 0 tabs 03/25/24 07/27/24 07/27/24 Rx albuterol sulfate 90 mcg/actuation 2 puff inhalation Q ID PRN 05/25/24 07/27/24 Unknown Rx aerosol inhaler Shortness Of Breath #6.7 gra ms atorvastatin 40 mg tablet 40 mg PO BEDTIME@22 #30 tabs 05/25/24 07/27/24 07/26/24 Rx blood sugar diagnostic (Blood #100 ea 05/25/24 5 Unknown Rx Glucose Test strips) doxepin 25 mg capsule 25 mg PO BEDTIME@22 #30 caps 05/25/24 07/27/24 07/26/24 Rx dulaglutide 4.5 mg/0.5 mL 4.5 mg (0.5 mL) SUBCUT .week ly #2 05/25/24 07/27/24 07/25/24 Rx subcutaneous pen injector mL duloxetine 60 mg capsule,delayed 60 mg PO BID@,22 #6 0 caps 05/25/24 07/27/24 07/27/24 Rx release gabapentin 300 mg capsule 300 mg PO BID@10,22 #60 caps 05/25/24 07/27/24 07/27/24 Rx insulin glargine 100 unit/mL (3 50 unit (0.5 mL) SUBCU T BEDTIME 05/25/24 07/27/24 07/26/24 Rx mL) subcutaneous pen (Lantus #15 mL Solostar U-100 Insulin) lancets #100 ea 05/25/24 07/27/24 Un known Rx levocetirizine 5 mg tablet 5 mg PO BID #60 tabs 07/27/24 07/27/24 Rx metoprolol tartrate 25 mg tablet 25 mg PO Q12H #60 tab s 05/25/24 07/27/24 07/27/24 Rx pen needle, diabetic 31 gauge x #1,200 ea 05/25/2409/15 Unknown Rx 5/16 (Comfort EZ Pen [place]) rivaroxaban 20 mg tablet (Xarelto) 20 mg PO BEDTIME@22 #30 tabs 05/25/24 07/27/24 07/26/24 Rx tizanidine 2 mg tablet 2 mg PO BEDTIME@22 #30 tabs 05/25/24 07/27/24 07/26/24 Rx lisinopril 40 mg tablet 40 mg PO DAILY #30 tabs 0405/1807/27/24 07/27/24 Rx blood sugar diagnostic (True #300 ea 06/24/24 07/27/24 Unknown Rx Metrix Glucose Test Strip) blood-glucose meter (True Metrix #1 ea 06/24/24 Unknown Rx Glucose Meter) lancets 31 gauge #300 ea 06/24/24 07/27/24 Un known Rx hydrochlorothiazide 25 mg tablet 25 mg PO DAILY #30 ta bs 07/12/24 07/27/24 07/27/24 Rx doxycycline hyclate 100 mg tablet 100 mg PO BID #20 ta bs 07/20/24 07/27/24 07/27/24 Rx prednisone 20 mg tablet 20 mg PO BID #10 tabs 07/27/24 07/27/24 Rx Allergies Allergy/AdvReac Type Severity Reaction Status Date / Time azithromycin (From Zithromax) Allergy Unknown ADR-Gastrointestinal Verified 07/20/24 13:17 Upset sulfamethoxazole (From Allergy Unknown ADR-Gastrointestinal Verified 07/20/24 13:17 Bactrim) Upset trimethoprim (From Bactrim) Allergy Unknown ADR-Gastrointestinal Verified 07/20/24 13:17 Upset PFSH Acute 2 PFSH: Medical History Osteoarthritis of spine Ulcer of foot, chronic Breast cancer, right Breast cancer, left breast Open wound of foot Right great toe Gastroesophageal reflux disease Diabetes mellitus with hyperglycemia, with long-term current use of insulin Atrial fibrillation COPD (chronic obstructive pulmonary disease) Dyslipidemia SVT (supraventricular tachycardia) Asthma Benign hypertension COPD exacerbation Surgical History History of amputation of great toe H/O esophagogastroduodenoscopy (10/19/21) H/O bilateral mastectomy Status post left breast lumpectomy Status post right breast lumpectomy History of appendectomy History of hysterectomy Family History Father CAD (coronary artery disease) Congestive heart failure (CHF) Hyperlipidemia Hypertension Lung disease Stroke Other Diabetes Denies family history of Clotting disorder Dementia Psychiatric illness Chronic kidney disease (CKD) Suicide Anesthesia complication Bleeding disorder Family history of premature coronary artery disease Cancer Social History Smoking and tobacco/nicotine status: current every day tobacco/nicotine user cigarettes Packs smoked per day: 2 Second hand smoke exposure: Yes Alcohol intake: never Substance/Drug Use: never Adopted: No Caregiver/support person: No Lives independently: Yes Household members: family Housing: House Marital status: Single Number of children: 1 service: No Current occupational status: employed Current gender identity: Female Vitals/I&O/Wt Last Vital Signs Temp 98.1 F 07/27/24 14:47 Pulse 64 07/27/24 14:47 Resp 16 07/27/24 14:47 BP 151/69 07/27/24 14:47 Pulse Ox 98 07/27/24 14:47 O2 Del Method Nasal Cannula 07/27/24 14:47 Weight last 48 hrs Weight 275 lb Physical Exam 2 Const: COMMON NORMALS: no acute distress and patient oriented x3 GENERAL APPEARANCE: cooperative and comfortable ORIENTATION/CONSCIOUSNESS: Yes awake, Yes oriented to person, Yes oriented to place and Yes oriented to time Chest: COMMONS NORMALS: normal inspection of the chest and normal palpation of entire chest wall CHEST: Yes Symmetrical chest wall rise Resp: COMMON NORMALS: normal respiratory effort, No retractions, No use of accessory muscles and clear to auscultation bilaterally EFFORT & INSPECTION: Yes symmetric chest movement AUSCULTATION: clear to auscultation bilaterally and diminished lung sounds bilateral in the lower lung gipson Cardio: COMMON NORMALS: regular rate, regular rhythm, S1 normal heart sound present, S2 normal heart sound present, No gallops present (Cardio), No clicks present (Cardio), No murmurs present (Cardio) and No rub (Cardio) RATE: r egular rate RHYTHM: regular rhythm HEART SOUNDS: S1 normal heart sound present and S2 normal heart sound present PERIPHERAL PULSES: radial pulses present Extremity: COMMON NORMALS: no pedal edema Neuro: COMMON NORMALS: patient oriented x3 and moves all extremities S ENSORIUM/ORIENTATION: Yes oriented to person, Yes oriented to place and Yes oriented to time Data 07/27/24 15:06 07/27/24 15:06 A&P Assessment and plan (1) Chest pain at rest: (2) Atrial fibrillation: Plan Given that she has chest pressure rated 2 out of 10 in the center of her chest at rest which has been constant since she called the ambulance, will trend troponins and EKGs, and monitor. Per Dr Tan, will go ahead with heparin 4,000 units, aspirin 325mg and Plavix 600mg once. Plan for echocardiogram. PDMP PDMP Reviewed: Not Reviewed Consult Attestations 2 Medical Necessity Statement: evaluation of chest pain Coding Level of Care Code Acute Code for [facility] Fwd Diagnoses Chest pain at rest R07.9 Paroxysmal atrial fibrillation I48.0 Atrial fibrillation type: paroxysmal
[2024-07-27 15:21] LABS: Basophils # 0.1 10^3/uL (0.0-0.1); Basophils % 0.3 %; Eosinophils # 0.3 10^3/uL (0.0-0.8); Eosinophils % 1.5 %; Hematocrit 47.9 % (36-47); Lymphocytes # 3.8 10^3/uL (0.8-4.8); Lymphocytes % 19.6 %; Mean Corpuscular HGB Conc 33.6 g/dL (30-55); Mean Corpuscular Hemoglobin 29.7 pg (27-33); Mean Corpuscular Volume 88.2 fl (85-98); Mean Platelet Volume 11.7 fL (7.4-10.4); Monocytes # 1.2 10^3/uL (0.2-0.9); Monocytes % 6.1 %; Neutrophils # 13.89 10^3/uL (1.8-7.7); Neutrophils % 71.9 %; Nucleated Red Blood Cells % 0 %; Platelet Count 266 10^3/cmm (157-399); Red Blood Count 5.43 10^6/uL (3.85-5.65); Red Cell Distribution Width 12.7 % (12.1-15.1); White Blood Count 19.34 10^3/uL (3.29-11.43)
[2024-07-27 15:34] LABS: Troponin(5th) Baseline 18 ng/L (0-10)
[2024-07-27 15:35] LABS: Alanine Aminotransferase 12 U/L (0-33); Albumin Level 2.8 g/dL (3.5-5.2); Alkaline Phosphatase 132 U/L (35-105); Aspartate Amino Transferase 7 U/L (0-32); Blood Urea Nitrogen 56 mg/dL (8-23); Calcium 8.1 mg/dL (8.5-10.5); Carbon Dioxide 25 mmol/L (22-29); Chloride 92 mmol/L (98-107); Creatinine Clr Calc Pharmacy 51.2687; Globulin 2.3 g/dL (1.3-4.6); Glomerular Filtration Rate 32.9 mL/min (90-130); Osmolality Calculated 308 mOsm/kg (285-295); Sodium 130 mmol/L (136-145); Total Bilirubin 0.5 mg/dL (0.15-1.2); Total Protein 5.1 g/dL (6.6-8.7)
[2024-07-27 15:40] LABS: Anion Gap 17.5 (5-19); Potassium 4.5 mmol/L (3.5-5.1)
[2024-07-27 15:41] LABS: Glucose 503 mg/dL (65-115)
--- NOTE | 2024-07-27 16:50 | ECG_ITS ---
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 Measurements Intervals [place] Rate: 61 P: 12 [place]: 207 QRS: 17 QRSD: 104 T: 56 QT: 459 QTc: 466 Interpretive Statements SINUS RHYTHM WITH SINUS ARRHYTHMIA Compared to ECG 07/27/2024 14:42:59 Prolonged QT interval no longer present Electronically Signed On 07-28-2024 23:38:12 CDT by Theodora Valladares M.D. [email or web address]
[2024-07-27 17:33] LABS: Troponin 5 2HR 17.53 ng/L (0-10)
[2024-07-27 17:34] LABS: Troponin 5 2HR Delta -0.47 ABS# (0-10)
[2024-07-27 17:45] LABS: Bilirubin Urine Negative (Negative); Blood Urine 2+ (Negative); Glucose Urine UA 2+ (Normal); Ketones Urine Negative (Negative); Leukocyte Esterase Urine 2+ (Negative); Nitrate Urine Negative (Negative); Protein Urine 3+ (Negative); Urine Appearance Cloudy (CLEAR); Urine Color Yellow (Yellow)
[2024-07-27 17:50] LABS: Hyaline Casts Urine 30.18 /lpf
[2024-07-27 18:20] LABS: Bacteria Urine 1+ /hpf; WBC Urine 25-40 /hpf (0-5)
--- NOTE | 2024-07-27 19:07 | PC.NURSE ---
ASSUMED CARE OF PT AT 1900.
--- NOTE | 2024-07-27 19:09 | PM.HP ---
Providers/Chief Complaint Admitting Physician: Katerina Joseph MD Primary Care Provider: Cristina Canela, RICHARD Chief Complaint: Stemi History of Present Illness Soni Head is a 59 year old female with past medical history of atrial fibrillation, SVT, cardioversion in 2019 for atrial flutter, hypertension, diabetes, dyslipidemia, COPD, Charcot foot, history of breast cancer status postmastectomy presented to the hospital today as a STEMI alert. EKG in ER showed early repolarization. STEMI alert was called off. Patient states that she has a history of frequent falls secondary to possible balance/inner ear issues. She states that she has seen Dr. Valladares in the past for the same and has also seen Dr. Smith ENT physician who has referred her for further workup to a vestibular specialist to [place]. She is also supposed to have a vestibular MRI however is waiting for an appointment. She says she feels off balance and recently fell on Friday. Does have a chronic cough is an active daily smoker. States she had a tick bite last week Friday/Friday and had extreme hives and itching including her head and shoulder or affected. She was given 7 days of prednisone which she completed 2 days ago. She says normally her blood sugars are 200 range at home but she has never seen 300-500 range before. Does endorse a history of Charcot right foot and sees Dr. Tavarez podiatry for it. States does not check her sugar very often but when she does check for the most part they are okay. She is on 40 of Lantus daily along with Trulicity that she takes every Friday. She took her medications as advised yesterday however has not taken them today. On arrival to ER patient's blood glucose 503, sodium 130, WBC 19. Patient states today she went to go see her primary care doctor mainly for these chronic off balance issues that she is having however there she was told her blood pressure is very low and she was sent to the ER subsequently. From the time she left the clinic and upon arrival to ER she felt pressure on the left side of her chest which was constant. She says she has never had this before. Denies having nausea vomiting diaphoresis or sense of impending doom when she had the chest pressure. She has had a stress test in the past however it was quite a while ago. She saw Dr. Valladares in the clinic last month and she was started on hydrochlorothiazide 25 daily and lisinopril was increased to 40 daily. In the ER today patient was given heparin 4000 units aspirin 325 and 600 Plavix x 1. Echo was ordered. Cardiology is on board and following. Hospitalist has been requested to admit patient for further workup and management alongside cardiology. Medications/Allergies Home Medications ?Medication ?Instructions ?Recorded ?Confirmed ?Last Taken ?Type nitroglycerin 0.4 mg sublingual 0.4 mg sublingual Q5M PRN Chest 06/18/21 07/27/24 12/20/22 History tablet (Nitrostat) Pain Diabetic Shoes with 3 Pairs of #1 ea 02/25/22 07/27/24 12/20/22 Rx Inserts Diabetic shoes with 3 sets of #1 ea 05/22/22 07/27/24 12/20/22 Rx inserts 12 pairs of diabetic socks #1 ea 10/29/22 07/27/24 12/20/22 Rx Diabetic Shoes with 3 pairs of #1 ea 11/26/22 07/27/24 12/20/22 Rx inserts- build up to the right blood-glucose meter #1 ea 11/27/22 07/27/24 12/20/22 Rx ascorbate calcium (vitamin C) 500 1,000 mg PO BEDTIME 12/09/22 07/27/24 07/26/24 History mg tablet clobetasol 0.05 % topical ointment See Rx Instructions .Route .COMPLEX 11/04/23 07/27/24 Unknown History nystatin 100,000 unit/gram topical 1 applic topical BID PRN Skin 11/04/23 07/27/24 Unknown History cream Irritation promethazine-DM 6.25 mg-15 mg/5 mL 5 - 10 ml PO Q6H PRN cough #240 mL 12/16/23 07/27/24 Unknown Rx oral syrup amiodarone 200 mg tablet (Pacerone) 200 mg PO DAILY #90 tabs 03/25/24 07/27/24 07/27/24 Rx albuterol sulfate 90 mcg/actuation 2 puff inhalation QID PRN 05/25/24 07/27/24 Unknown Rx aerosol inhaler Shortness Of Breath #6.7 grams atorvastatin 40 mg tablet 40 mg PO BEDTIME@22 #30 tabs 05/25/24 07/27/24 07/26/24 Rx blood sugar diagnostic (Blood #100 ea 05/25/24 07/27/24 Unknown Rx Glucose Test strips) doxepin 25 mg capsule 25 mg PO BEDTIME@22 #30 caps 05/25/24 07/27/24 07/26/24 Rx dulaglutide 4.5 mg/0.5 mL 4.5 mg (0.5 mL) SUBCUT .weekly #2 05/25/24 07/27/24 07/25/24 Rx subcutaneous pen injector mL duloxetine 60 mg capsule,delayed 60 mg PO BID@10,22 #60 caps 05/25/24 07/27/24 07/27/24 Rx release gabapentin 300 mg capsule 300 mg PO BID@10,22 #60 caps 05/25/24 07/27/24 07/27/24 Rx insulin glargine 100 unit/mL (3 50 unit (0.5 mL) SUBCUT BEDTIME 05/25/24 07/27/24 07/26/24 Rx mL) subcutaneous pen (Lantus #15 mL Solostar U-100 Insulin) lancets #100 ea 05/25/24 07/27/24 Unknown Rx levocetirizine 5 mg tablet 5 mg PO BID #60 tabs 05/25/24 07/27/24 07/27/24 Rx metoprolol tartrate 25 mg tablet 25 mg PO Q12H #60 tabs 05/25/24 07/27/24 07/27/24 Rx pen needle, diabetic 31 gauge x #1,200 ea 05/25/24 07/27/24 Unknown Rx 5/16 (Comfort EZ Pen Lillie) rivaroxaban 20 mg tablet (Xarelto) 20 mg PO BEDTIME@22 #30 tabs 05/25/24 07/27/24 07/26/24 Rx tizanidine 2 mg tablet 2 mg PO BEDTIME@22 #30 tabs 05/25/24 07/27/24 07/26/24 Rx lisinopril 40 mg tablet 40 mg PO DAILY #30 tabs 06/23/24 07/27/24 07/27/24 Rx blood sugar diagnostic (True #300 ea 06/24/24 07/27/24 Unknown Rx Metrix Glucose Test Strip) blood-glucose meter (True Metrix #1 ea 06/24/24 07/27/24 Unknown Rx Glucose Meter) lancets 31 gauge #300 ea 06/24/24 07/27/24 Unknown Rx hydrochlorothiazide 25 mg tablet 25 mg PO DAILY #30 tabs 07/12/24 07/27/24 07/27/24 Rx doxycycline hyclate 100 mg tablet 100 mg PO BID #20 tabs 07/20/24 07/27/24 07/27/24 Rx prednisone 20 mg tablet 20 mg PO BID #10 tabs 07/20/24 07/27/24 07/27/24 Rx Allergies Allergy/AdvReac Type Severity Reaction Status Date / Time azithromycin (From Zithromax) Allergy Unknown ADR-Gastrointestinal Verified 07/27/24 17:01 Upset sulfamethoxazole (From Allergy Unknown ADR-Gastrointestinal Verified 07/27/24 17:01 Bactrim) Upset trimethoprim (From Bactrim) Allergy Unknown ADR-Gastrointestinal Verified 07/27/24 17:01 Upset PFSH Acute PFSH: Medical History Osteoarthritis of spine Ulcer of foot, chronic Breast cancer, right Breast cancer, left breast Open wound of foot Right great toe Gastroesophageal reflux disease Diabetes mellitus with hyperglycemia, with long-term current use of insulin Atrial fibrillation COPD (chronic obstructive pulmonary disease) Dyslipidemia SVT (supraventricular tachycardia) Asthma Benign hypertension COPD exacerbation Surgical History History of amputation of great toe H/O esophagogastroduodenoscopy (10/19/21) H/O bilateral mastectomy Status post left breast lumpectomy Status post right breast lumpectomy History of appendectomy History of hysterectomy Family History Father CAD (coronary artery disease) Congestive heart failure (CHF) Hyperlipidemia Hypertension Lung disease Stroke Other Diabetes Denies family history of Clotting disorder Dementia Psychiatric illness Chronic kidney disease (CKD) Suicide Anesthesia complication Bleeding disorder Family history of premature coronary artery disease Cancer Social History Smoking and tobacco/nicotine status: current every day tobacco/nicotine user cigarettes Packs smoked per day: 2 Second hand smoke exposure: Yes Alcohol intake: never Substance/Drug Use: never Adopted: No Caregiver/support person: No Lives independently: Yes Household members: family Housing: House Marital status: Single Number of children: 1 service: No Current occupational status: employed Current gender identity: Female Vitals/I&O/Wt Last Vital Signs Temp 98.1 F 07/27/24 14:47 Pulse 63 07/27/24 18:30 Resp 24 H 07/27/24 17:30 BP 130/79 07/27/24 18:30 Pulse Ox 99 07/27/24 18:00 O2 Del Method Nasal Cannula 07/27/24 14:47 Weight last 48 hrs Weight 124.738 kg Physical Exam Narrative: General: Alert oriented x3, patient seen laying in bed on room air currently having echocardiogram completed. No acute distress no conversational dyspnea, denies chest pain HEENT: Normocephalic, atraumatic, EOMI, Cardio: Regular rate rhythm, normal S1-S2 Respiratory: Clear to auscultation bilaterally no wheezes no rhonchi, diminished breath sounds at bases. GI: Abdomen soft, nontender, nondistended, bowel sounds + Extremities: No edema bilateral lower extremities. Data 07/27/24 15:06 07/27/24 15:06 A&P Assessment and plan (1) Atrial fibrillation/flutter: (2) Dyslipidemia: (3) Diabetes mellitus with hyperglycemia, with long-term current use of insulin: (4) Hyperglycemia due to type 2 diabetes mellitus: (5) Hyperglycemia: (6) Gastroesophageal reflux disease: (7) History of amputation of great toe: (8) COPD (chronic obstructive pulmonary disease): (9) Current smoker: (10) Tobacco abuse: (11) Benign hypertension: (12) Atypical chest pain: (13) Pseudohyponatremia: (14) Vertigo: (15) Frequent falls: Plan #Atypical chest pain #Diabetes mellitus insulin-dependent #Uncontrolled blood sugar, hyperglycemia #Pseudohyponatremia #Leukocytosis #ELVI #Hypertension #History of SVT/atrial fibrillation #Chronic anticoagulation #Vertigo #Frequent falls which patient attributes to her vertigo ? Patient's chest pressure seems to be atypical or possibly secondary to demand ischemia?. I do not have a documented low blood pressure however patient also has a history of situational anxiety and states that she is unsure what was going on however she feels that she may have gotten stressed when she was being sent to the hospital. Her dad does have a history of [place] and due to the same. Patient has been experiencing vertigo and questionable inner ear issues for which she is supposed to have an MRI done as an outpatient. Denies nausea diaphoresis or chest pressure/chest pain at any other time. Had a normal stress test 5 years ago. ? Previous echo had poor ultrasonic windows. ? Patient was loaded with Plavix in the ER and given aspirin 325. ? Troponin 18, 17.53 at 2 hours. Delta -0.47. ? Check complete echo. Appreciate recommendations from cardiology. Cardiology consulted. Patient is already anticoagulated and is on Xarelto daily. I will continue that at this time. Continue aspirin 81 daily. ? Continue doxycycline 100 twice daily for 2 more days as patient is completing a course for tick bite that was managed as an outpatient. ? Blood sugars uncontrolled. Check lipid profile, hemoglobin A1c. Patient's Lantus dosing may need to be adjusted. She takes Lantus 40 units daily at bedtime. ? I will continue on Lantus 35 units daily has reduced dose in hospital setting. Continue moderate dose intensity sliding scale insulin. Check BMP stat ? Continue IV fluids normal saline 100 cc/h. ? Sodium 130 at this time most likely pseudohyponatremia secondary to elevated glucose. Adjusted sodium is normal. ? ELVI: Creatinine 1.6. Baseline 0.7-0.8. Continue IV fluids. Probably prerenal cause. - Check beta hydroxybutyrate ? Leukocytosis probably reactive as stress response. I will monitor this. ? Recheck CBC CMP magnesium in a.m. ? Diabetic teaching - Continue atorvastatin, duloxetine ? Hold home gabapentin ? Hold lisinopril. ? May order hydralazine 25 3 times daily for BP if needed. PT - Discussed with harvest supervisor over the phone. No plan for stress test at this time due to patient's atypical presentation however this will be further decided after echocardiogram is reviewed. Full code DVT prophylaxis: On Xarelto. PDMP PDMP Reviewed: Not Reviewed Attestations Medical Necessity Statement*: Observation admission for atypical chest pain. Expect less than 48 hours stay. Diagnoses Atrial fibrillation/flutter I48.91; I48.92 Dyslipidemia E78.5 Type 2 diabetes mellitus with hyperglycemia, with long-term current use of insulin E11.65; Z79.4 Hyperglycemia due to type 2 diabetes mellitus E11.65 Hyperglycemia R73.9 Gastroesophageal reflux disease without esophagitis K21.9 History of amputation of great toe Z89.419 Chronic obstructive pulmonary disease, unspecified COPD type J44.9 COPD type: unspecified COPD Current smoker F17.200 Tobacco abuse Z72.0 Benign hypertension I10 Atypical chest pain R07.89 Pseudohyponatremia R79.89 Vertigo R42 Frequent falls R29.6
[2024-07-27] MEDS: sodium chloride 0.9% 1,000 ML 100 ML IV (19:28)
[2024-07-27 20:41] LABS: Blood Urea Nitrogen 59 mg/dL (8-23); Calcium 8.3 mg/dL (8.5-10.5); Carbon Dioxide 27 mmol/L (22-29); Chloride 92 mmol/L (98-107); Cholesterol 207 mg/dL (0-200); Creatinine Clr Calc Pharmacy 51.2687; Glomerular Filtration Rate 32.9 mL/min (90-130); Glucose 379 mg/dL (65-115); HDL Cholesterol 46 mg/dL (60-100); Osmolality Calculated 302 mOsm/kg (285-295); Sodium 130 mmol/L (136-145); Thyroid Stimulating Hormone 1.59 uIU/mL (0.27-4.20); Triglycerides 665 mg/dL (0-150); VLDL Cholestrol Calculation 133 mg/dL (0-30)
[2024-07-27 20:47] LABS: Influenza A NEGATIVE (Negative); Influenza B NEGATIVE (Negative); Respiratory Syncytial Virus Ce NEGATIVE (Negative); SARS-CoV-2 PCR NEGATIVE (Negative)
--- NOTE | 2024-07-27 20:50 | ECG_ITS ---
[facility] Date: 2024-07-27 Pat Name: Soni Head Department: Room: 101 Gender: Female Identification Clerk: : 1965 Requested By: Cj Palacios Order Number: [id number] Eric MD: Theodora Valladares M.D. Measurements Intervals [place] Rate: 67 P: 58 LA: 194 QRS: 12 QRSD: 104 T: 61 QT: 445 QTc: 470 Interpretive Statements SINUS RHYTHM POSSIBLE LEFT ATRIAL ENLARGEMENT [-0.1mV P-WAVE IN V1/V2] ST ELEVATION, CONSIDER INFERIOR INJURY [MARKED ST ELEVATION W/O NORMALLY INFLECTED T-WAVE IN II/aVF] ACUTE CO Compared to ECG 07/27/2024 16:17:44 ST (T wave) deviation now present Myocardial infarct finding now present Sinus arrhythmia no longer present Electronically Signed On 07-28-2024 23:37:48 CDT by Theodora Valladares M.D. [email or web address]
[2024-07-27 20:51] LABS: Anion Gap 14.8 (5-19); Potassium 3.8 mmol/L (3.5-5.1)
[2024-07-27 21:11] LABS: Estmated Average Glucose 266; Hemoglobin A1C 10.9 % (4.0-6.0)
[2024-07-27 21:16] LABS: LDL Cholesterol Direct 106 mg/dL (0-100)
[2024-07-27 21:25] LABS: Glucose Point of Care 405 mg/dL (70-110)
[2024-07-27] MEDS: metoprolol tartrate 25 mg Tablet PO (21:26)
[2024-07-27] MEDS: duloxetine 60 mg Capsule PO (21:27)
[2024-07-27] MEDS: atorvastatin 40 mg Tablet PO (21:27)
[2024-07-27] MEDS: ascorbic acid 500 mg Tablet 1000 MG PO (21:27)
[2024-07-27] MEDS: rivaroxaban 10 mg Tablet 20 MG PO (21:28)
[2024-07-27] MEDS: insulin lispro 100 unit/1 mL SUBCUT (21:28)
[2024-07-27] MEDS: insulin glargine 100 units/1 mL 35 UNIT SUBCUT (21:29)
[2024-07-27 21:31] LABS: Troponin 5 6HR 18.08 ng/L (0-10); Troponin 5 6HR Delta 0.08 ng/L (0-12)
--- NOTE | 2024-07-27 23:15 | ECG_ITS ---
[facility] Date: 2024-07[facility]27 Pat Name: Soni Head Department: Room: 101 Gender: Female Program/Music Director: : 1965 Requested By: Katerina Joseph Order Number: [id number] Eric MD: Theodora Valladares M.D. Measurements Intervals [place] Rate: 62 P: 71 CO: 190 QRS: 34 QRSD: 110 T: 63 QT: 478 QTc: 488 Interpretive Statements SINUS RHYTHM MARKED ST ELEVATION, CONSIDER INFERIOR INJURY [MARKED ST ELEVATION W/O NORMALLY INFLECTED T-WAVE IN II/aVF] ACUTE NM possible old anteroseptal NM Compared to ECG 07/27/2024 21:05:26 No significant changes Electronically Signed On 07-28-2024 23:37:32 CDT by Theodora Valladares M.D. [email or web address] [id number]
[2024-07-28] VITALS (7 sets, daily range): BP systolic 101–149; BP diastolic 55–75; PULSE 59–71; RESP 14–18; TEMP 36.7–37.1; O2SAT 91–97
--- NOTE | 2024-07-28 01:30 | ECG_ITS ---
[facility] Date: 2024-07-28 Pat Name: Soni Head Department: Room: 101 Gender: Female Heel Seat Pounder: : 1965 Requested By: Katerina Joseph Order Number: [id number] Eric MD: Theodora Valladares M.D. Measurements Intervals [place] Rate: 61 P: -17 MS: 176 QRS: -2 QRSD: 111 T: 75 QT: 476 QTc: 480 Interpretive Statements SINUS RHYTHM MODERATE INTRAVENTRICULAR CONDUCTION DELAY [110+ ms QRS DURATION] MODERATE T-WAVE ABNORMALITY, CONSIDER ANTERIOR ISCHEMIA [-0.1+ mV T-WAVE IN V3/V4] Compared to ECG 07/27/2024 23:15:35 Intraventricular conduction delay now present T-wave abnormality now present Possible ischemia now present ST (T wave) deviation no longer present Myocardial infarct finding no longer present Electronically Signed On 07-28-2024 23:36:58 CDT by Theodora Valladares M.D. [email or web address] [id number]
[2024-07-28 02:47] LABS: Basophils # 0.1 10^3/uL (0.0-0.1); Basophils % 0.4 %; Eosinophils # 0.4 10^3/uL (0.0-0.8); Eosinophils % 2.4 %; Hematocrit 44.1 % (36-47); Lymphocytes # 5.3 10^3/uL (0.8-4.8); Lymphocytes % 33.1 %; Mean Corpuscular HGB Conc 33.8 g/dL (30-55); Mean Corpuscular Volume 88.7 fl (85-98); Mean Platelet Volume 11.4 fL (7.4-10.4); Monocytes # 1.4 10^3/uL (0.2-0.9); Monocytes % 8.5 %; Neutrophils % 55.1 %; Nucleated Red Blood Cells % 0 %; Platelet Count 229 10^3/cmm (157-399); Red Blood Count 4.97 10^6/uL (3.85-5.65); Red Cell Distribution Width 12.7 % (12.1-15.1); White Blood Count 15.96 10^3/uL (3.29-11.43)
[2024-07-28 03:15] LABS: Alanine Aminotransferase 10 U/L (0-33); Albumin Level 2.2 g/dL (3.5-5.2); Alkaline Phosphatase 105 U/L (35-105); Anion Gap 13.7 (5-19); Aspartate Amino Transferase 9 U/L (0-32); Blood Urea Nitrogen 62 mg/dL (8-23); Calcium 7.8 mg/dL (8.5-10.5); Carbon Dioxide 26 mmol/L (22-29); Chloride 99 mmol/L (98-107); Creatinine Clr Calc Pharmacy 54.6866; Globulin 2.5 g/dL (1.3-4.6); Glomerular Filtration Rate 35.4 mL/min (90-130); Glucose 164 mg/dL (65-115); Magnesium 1.9 mg/dL (1.7-2.3); Osmolality Calculated 301 mOsm/kg (285-295); Phosphorus 4.2 mg/dL (2.5-4.5); Potassium 3.7 mmol/L (3.5-5.1); Sodium 135 mmol/L (136-145); Total Bilirubin 0.3 mg/dL (0.15-1.2); Total Protein 4.7 g/dL (6.6-8.7)
--- NOTE | 2024-07-28 03:41 | PC.NURSE ---
Patient transferred from [facility], no complaints of pain. Per patient she is going back to sleep.
[2024-07-28 06:27] LABS: Glucose Point of Care 158 mg/dL (70-110)
[2024-07-28] MEDS: doxycycline 100 mg Tablet PO ×2 (08:48→18:15)
[2024-07-28] MEDS: hydroCHLOROthiazide 25 mg Tablet PO (08:48)
[2024-07-28] MEDS: duloxetine 60 mg Capsule PO ×2 (08:48→21:11)
[2024-07-28] MEDS: aspirin 81 mg EC Tablet PO (08:49)
[2024-07-28] MEDS: insulin lispro 100 unit/1 mL SUBCUT ×3 (08:49→21:10)
[2024-07-28] MEDS: metoprolol tartrate 25 mg Tablet PO ×2 (08:49→21:11)
--- NOTE | 2024-07-28 09:04 | P.PN_ITS ---
<Statement entered by Lamin Tan MD - 07/28/24 20:55> Patient was evaluated and cared for in conjunction with an advanced practice practitioner. I personally examined the patient and reviewed the chart and all pertinent data including imaging, telemetry, and laboratory results. I discussed the patient in detail with the advanced practice practitioner. Please see their note for complete H&P testing result and agreed upon plan of care for the patient. Subjective 2 Subjective: No chest pain or pressure this morning. Troponin trend yesterday was flat: 18->17->18. Feeling much better today. Vitals/I&O/Wt Last Vital Signs Temp 98.6 F 07/28/24 08:00 Pulse 65 07/28/24 08:00 Resp 16 07/28/24 08:00 BP 119/62 07/28/24 08:00 Pulse Ox 91 07/28/24 08:00 O2 Del Method Room Air 07/28/24 08:00 07/27/24 07/28/24 07/28/24 22:59 06:59 14:59 Intake Total 100 / 100 120 / 120 Balance 100 / 100 120 / 120 Weight last 48 hrs Weight 275 lb Weight 275 lb Weight 275 lb Physical Exam 2 Const: COMMON NORMALS: no acute distress and patient oriented x3 GENERAL APPEARANCE: cooperative and comfortable ORIENTATION/CONSCIOUSNESS: Yes awake, Yes oriented to person, Yes oriented to place and Yes oriented to time Chest: COMMONS NORMALS: normal inspection of the chest and normal palpation of entire chest wall CHEST: Yes Symmetrical chest wall rise Resp: COMMON NORMALS: normal respiratory effort, No retractions, No use of accessory muscles and clear to auscultation bilaterally EFFORT & INSPECTION: Yes symmetric chest movement AUSCULTATION: clear to auscultation bilaterally Cardio: COMMON NORMALS: regular rate, regular rhythm, S1 normal heart sound present, S2 normal heart sound present, No gallops present (Cardio), No clicks present (Cardio), No murmurs present (Cardio) and No rub (Cardio) RATE: r egular rate RHYTHM: regular rhythm HEART SOUNDS: S1 normal heart sound present and S2 normal heart sound present PERIPHERAL PULSES: radial pulses present Extremity: COMMON NORMALS: no pedal edema Neuro: COMMON NORMALS: patient oriented x3 and moves all extremities S ENSORIUM/ORIENTATION: Yes oriented to person, Yes oriented to place and Yes oriented to time Data 07/28/24 02:37 07/28/24 02:37 A&P Assessment and plan (1) Chest pain at rest: (2) Diabetes mellitus with hyperglycemia, with long-term current use of insulin: (3) Benign hypertension: (4) Current smoker: (5) Dyslipidemia: Plan Will continue medical management of chest pain, which has now resolved. Continue amiodarone, metoprolol, aspirin, Xarelto. May discharge home when okay with hospitalist service, follow-up with cardiology in 2 weeks. PDMP PDMP Reviewed: Not Reviewed Attestations 2 Medical Necessity Statement*: Per hospitalist Coding Level of Care Code Acute Code for g Fwd Diagnoses Chest pain at rest R07.9 Type 2 diabetes mellitus with hyperglycemia, with long-term current use of insulin E11.65; Z79.4 Benign hypertension I10 Current smoker F17.200 Dyslipidemia E78.5
[2024-07-28 11:33] LABS: NT Pro B Type Natriuretic Pept 166 pg/mL (0-125)
--- NOTE | 2024-07-28 11:40 | PM.PN ---
Subjective Subjective: seen today cr 1.5 today denies chest pressure or chest pain blood sugar improved Vitals/I&O/Wt Last Vital Signs Temp 98.6 F 07/28/24 08:00 Pulse 65 07/28/24 10:33 Resp 16 07/28/24 10:33 BP 119/62 07/28/24 08:00 Pulse Ox 91 07/28/24 10:33 O2 Del Method Room Air 07/28/24 10:33 07/27/24 07/28/24 07/28/24 22:59 06:59 14:59 Intake Total 100 / 100 120 / 120 Balance 100 / 100 120 / 120 Weight last 48 hrs Weight 124.738 kg Weight 124.738 kg Weight 124.738 kg Physical Exam Narrative: General: Alert oriented x3, NAD, sitting up in bed HEENT: Normocephalic, atraumatic, EOMI, Cardio: Regular rate rhythm, normal S1-S2 Respiratory: Clear to auscultation bilaterally no wheezes no rhonchi, diminished breath sounds at bases. GI: Abdomen soft, nontender, nondistended, bowel sounds + Extremities: No edema bilateral lower extremities. Data 07/28/24 02:37 07/28/24 02:37 A&P Assessment and plan (1) Atrial fibrillation/flutter: (2) Dyslipidemia: (3) Diabetes mellitus with hyperglycemia, with long-term current use of insulin: (4) Hyperglycemia due to type 2 diabetes mellitus: (5) Hyperglycemia: (6) Gastroesophageal reflux disease: (7) History of amputation of great toe: (8) COPD (chronic obstructive pulmonary disease): (9) Current smoker: (10) Tobacco abuse: (11) Benign hypertension: (12) Atypical chest pain: (13) Pseudohyponatremia: (14) Vertigo: (15) Frequent falls: Plan #Atypical chest pain #Diabetes mellitus insulin-dependent #Uncontrolled blood sugar, hyperglycemia #Pseudohyponatremia #Leukocytosis #ELVI #Hypertension #History of SVT/atrial fibrillation #Chronic anticoagulation #Vertigo #Frequent falls which patient attributes to her vertigo ? Patient's chest pressure seems to be atypical or possibly secondary to demand ischemia?. I do not have a documented low blood pressure however patient also has a history of situational anxiety and states that she is unsure what was going on however she feels that she may have gotten stressed when she was being sent to the hospital. Her dad does have a history of [place] and due to the same. Patient has been experiencing vertigo and questionable inner ear issues for which she is supposed to have an MRI done as an outpatient. Denies nausea diaphoresis or chest pressure/chest pain at any other time. Had a normal stress test 5 years ago. ? Previous echo had poor ultrasonic windows. ? Patient was loaded with Plavix in the ER and given aspirin 325. ? Troponin 18, 17.53 at 2 hours. Delta -0.47. ? Check complete echo. Appreciate recommendations from cardiology. Cardiology consulted. Patient is already anticoagulated and is on Xarelto daily. I will continue that at this time. Continue aspirin 81 daily. ? Continue doxycycline 100 twice daily for 2 more days as patient is completing a course for tick bite that was managed as an outpatient. ? Blood sugars uncontrolled. Check lipid profile, hemoglobin A1c. Patient's Lantus dosing may need to be adjusted. She takes Lantus 40 units daily at bedtime. ? I will continue on Lantus 35 units daily has reduced dose in hospital setting. Continue moderate dose intensity sliding scale insulin. Check BMP stat ? Continue IV fluids normal saline 100 cc/h. ? Sodium 130 at this time most likely pseudohyponatremia secondary to elevated glucose. Adjusted sodium is normal. ? ELVI: Creatinine 1.6. Baseline 0.7-0.8. Continue IV fluids. Probably prerenal cause. - Check beta hydroxybutyrate ? Leukocytosis probably reactive as stress response. I will monitor this. ? Recheck CBC CMP magnesium in a.m. ? Diabetic teaching - Continue atorvastatin, duloxetine ? Hold home gabapentin ? Hold lisinopril. ? May order hydralazine 25 3 times daily for BP if needed. PT - Discussed with color separation photographer over the phone. No plan for stress test at this time due to patient's atypical presentation however this will be further decided after echocardiogram is reviewed. Full code DVT prophylaxis: On Xarelto. 07/28/2024 consult nephrology hold nephrotoxic agents stop lisinopril cr 1.5 today stop IV fluids, patient has developed 1+ b/L LE continue to monitor cr BG improved, hba1c 10.1 leukocytosis improving appreciate cardiology recommendations PDMP PDMP Reviewed: Not Reviewed Attestations Medical Necessity Statement*: requires continued hospitalization due to ELVI Diagnoses Atrial fibrillation/flutter I48.91; I48.92 Dyslipidemia E78.5 Type 2 diabetes mellitus with hyperglycemia, with long-term current use of insulin E11.65; Z79.4 Hyperglycemia due to type 2 diabetes mellitus E11.65 Hyperglycemia R73.9 Gastroesophageal reflux disease without esophagitis K21.9 History of amputation of great toe Z89.419 Chronic obstructive pulmonary disease, unspecified COPD type J44.9 COPD type: unspecified COPD Current smoker F17.200 Tobacco abuse Z72.0 Benign hypertension I10 Atypical chest pain R07.89 Pseudohyponatremia R79.89 Vertigo R42 Frequent falls R29.6
[2024-07-28 11:51] LABS: Glucose Point of Care 126 mg/dL (70-110)
--- NOTE | 2024-07-28 13:17 | PM.CONSULT ---
Providers/Reason For Consult Consulting Physician/Specialty*: kommana/Nephrology Reason for Consult*: ELVI Attending Physician: Katerina Joseph MD Primary Care Provider: RICHARD Sotelo History of Present Illness History of Present Illness Soni Head is a 59 year old female patient is a 59-year-old female with past medical history of A-fib, history of cardioversion, hypertension diabetes dyslipidemia COPD, history of breast cancer status postmastectomy presented to the hospital due to frequent falls. History of vertigo and sees an ENT as outpatient. In the ER patient was noted to have high blood glucose of 500, WBC count of 19,000. Patient was started recently on HCTZ and lisinopril. Her baseline creatinine is normal at 0.7 but noted to have ELVI with a creatinine of 1.5 on presentation. No IV contrast exposure. Had borderline low blood pressures with systolic in the 90s during the hospital stay. Review of Systems Narrative: Negative Medications/Allergies Home Medications ?Medication ?Instructions ?Recorded ?Confirmed ?Last Taken ?Type nitroglycerin 0.4 mg sublingual 0.4 mg sublingual Q5M PRN Chest 06/18/21 07/27/24 12/20/22 History tablet (Nitrostat) Pain Diabetic Shoes with 3 Pairs of #1 ea 02/25/22 07/27/24 12/20/22 Rx Inserts Diabetic shoes with 3 sets of #1 ea 05/22/22 07/27/24 12/20/22 Rx inserts 12 pairs of diabetic socks #1 ea 10/29/22 07/27/24 12/20/22 Rx Diabetic Shoes with 3 pairs of #1 ea 11/26/22 07/27/24 12/20/22 Rx inserts- build up to the right blood-glucose meter #1 ea 11/27/22 07/27/24 12/20/22 Rx ascorbate calcium (vitamin C) 500 1,000 mg PO BEDTIME 12/09/22 07/27/24 07/26/24 History mg tablet clobetasol 0.05 % topical ointment See Rx Instructions .Route .COMPLEX 11/04/23 07/27/24 Unknown History nystatin 100,000 unit/gram topical 1 applic topical BID PRN Skin 11/04/23 07/27/24 Unknown History cream Irritation promethazine-DM 6.25 mg-15 mg/5 mL 5 - 10 ml PO Q6H PRN cough #240 mL 12/16/23 07/27/24 Unknown Rx oral syrup amiodarone 200 mg tablet (Pacerone) 200 mg PO DAILY #90 tabs 03/25/24 07/27/24 07/27/24 Rx albuterol sulfate 90 mcg/actuation 2 puff inhalation QID PRN 05/25/24 07/27/24 Unknown Rx aerosol inhaler Shortness Of Breath #6.7 grams atorvastatin 40 mg tablet 40 mg PO BEDTIME@22 #30 tabs 05/25/24 07/27/24 07/26/24 Rx blood sugar diagnostic (Blood #100 ea 05/25/24 07/27/24 Unknown Rx Glucose Test strips) doxepin 25 mg capsule 25 mg PO BEDTIME@22 #30 caps 05/25/24 07/27/24 07/26/24 Rx dulaglutide 4.5 mg/0.5 mL 4.5 mg (0.5 mL) SUBCUT .weekly #2 05/25/24 07/27/24 07/25/24 Rx subcutaneous pen injector mL duloxetine 60 mg capsule,delayed 60 mg PO BID@10,22 #60 caps 05/25/24 07/27/24 07/27/24 Rx release gabapentin 300 mg capsule 300 mg PO BID@10,22 #60 caps 05/25/24 07/27/24 07/27/24 Rx insulin glargine 100 unit/mL (3 50 unit (0.5 mL) SUBCUT BEDTIME 05/25/24 07/27/24 07/26/24 Rx mL) subcutaneous pen (Lantus #15 mL Solostar U-100 Insulin) lancets #100 ea 05/25/24 07/27/24 Unknown Rx levocetirizine 5 mg tablet 5 mg PO BID #60 tabs 05/25/24 07/27/24 07/27/24 Rx metoprolol tartrate 25 mg tablet 25 mg PO Q12H #60 tabs 05/25/24 07/27/24 07/27/24 Rx pen needle, diabetic 31 gauge x #1,200 ea 05/25/24 07/27/24 Unknown Rx 5/16 (Comfort EZ Pen [place]) rivaroxaban 20 mg tablet (Xarelto) 20 mg PO BEDTIME@22 #30 tabs 05/25/24 07/27/24 07/26/24 Rx tizanidine 2 mg tablet 2 mg PO BEDTIME@22 #30 tabs 05/25/24 07/27/24 07/26/24 Rx lisinopril 40 mg tablet 40 mg PO DAILY #30 tabs 06/23/24 07/27/24 07/27/24 Rx blood sugar diagnostic (True #300 ea 06/24/24 07/27/24 Unknown Rx Metrix Glucose Test Strip) blood-glucose meter (True Metrix #1 ea 06/24/24 07/27/24 Unknown Rx Glucose Meter) lancets 31 gauge #300 ea 06/24/24 07/27/24 Unknown Rx hydrochlorothiazide 25 mg tablet 25 mg PO DAILY #30 tabs 07/12/24 07/27/24 07/27/24 Rx doxycycline hyclate 100 mg tablet 100 mg PO BID #20 tabs 07/20/24 07/27/24 07/27/24 Rx prednisone 20 mg tablet 20 mg PO BID #10 tabs 07/20/24 07/27/24 07/27/24 Rx Allergies Allergy/AdvReac Type Severity Reaction Status Date / Time azithromycin (From Zithromax) Allergy Unknown ADR-Gastrointestinal Verified 07/27/24 17:01 Upset sulfamethoxazole (From Allergy Unknown ADR-Gastrointestinal Verified 07/27/24 17:01 Bactrim) Upset trimethoprim (From Bactrim) Allergy Unknown ADR-Gastrointestinal Verified 07/27/24 17:01 Upset Current Medications Generic Name Dose Route Start Last Admin Trade Name Freq PRN Reason Stop Dose Admin Ascorbic Acid 1,000 mg 07/27/24 21:00 07/27/24 21:27 Ascorbic Acid 500 Mg Tablet PO 1,000 mg BEDTIME KELSEA Administration Aspirin 81 mg 07/28/24 09:00 07/28/24 08:49 Aspirin 81 Mg Ec Tablet PO 81 mg DAILY KELSEA Administration Atorvastatin Calcium 40 mg 07/27/24 22:00 07/27/24 21:27 Atorvastatin 40 Mg Tablet PO 40 mg BEDTIME@22 KELSEA Administration Doxycycline Monohydrate 100 mg 07/28/24 09:00 07/28/24 08:48 Doxycycline 100 Mg Tablet PO 100 mg BID KELSEA Administration Duloxetine HCl 60 mg 07/27/24 22:00 07/28/24 08:48 Duloxetine 60 Mg Capsule PO 60 mg BID@10,22 KELSEA Administration Sodium Chloride 1,000 mls @ 100 mls/hr 07/27/24 18:15 07/28/24 05:43 Sodium Chloride 0.9% IV Not Given On Hold: 07/28/24 10:54 .Q10H KELSEA Insulin Glargine 35 unit 07/27/24 21:00 07/27/24 21:29 Insulin Glargine 100 Units/1 Ml SUBCUT 35 unit BEDTIME KELSEA Administration Insulin Human Lispro 0 unit 07/27/24 21:00 07/28/24 12:32 Insulin Lispro 100 Unit/1 Ml SUBCUT Not Given WM&BEDTIME KELSEA Protocol Metoprolol Tartrate 25 mg 07/27/24 19:59 07/28/24 08:49 Metoprolol Tartrate 25 Mg Tablet PO 25 mg Q12H KELSEA Administration Rivaroxaban 20 mg 07/27/24 22:00 07/27/24 21:28 Rivaroxaban 10 Mg Tablet PO 20 mg BEDTIME@22 KELSEA Administration PFSH Acute PFSH: Medical History Osteoarthritis of spine Ulcer of foot, chronic Breast cancer, right Breast cancer, left breast Open wound of foot Right great toe Gastroesophageal reflux disease Diabetes mellitus with hyperglycemia, with long-term current use of insulin Atrial fibrillation COPD (chronic obstructive pulmonary disease) Dyslipidemia SVT (supraventricular tachycardia) Asthma Benign hypertension COPD exacerbation Surgical History History of amputation of great toe H/O esophagogastroduodenoscopy (10/19/21) H/O bilateral mastectomy Status post left breast lumpectomy Status post right breast lumpectomy History of appendectomy History of hysterectomy Family History Father CAD (coronary artery disease) Congestive heart failure (CHF) Hyperlipidemia Hypertension Lung disease Stroke Other Diabetes Denies family history of Clotting disorder Dementia Psychiatric illness Chronic kidney disease (CKD) Suicide Anesthesia complication Bleeding disorder Family history of premature coronary artery disease Cancer Social History Smoking and tobacco/nicotine status: current every day tobacco/nicotine user cigarettes Packs smoked per day: 2 Second hand smoke exposure: Yes Alcohol intake: never Substance/Drug Use: never Adopted: No Caregiver/support person: No Lives independently: Yes Household members: family Housing: House Marital status: Single Number of children: 1 service: No Current occupational status: employed Current gender identity: Female Vitals/I&O/Wt Last Vital Signs Temp 98.6 F 07/28/24 08:00 Pulse 71 07/28/24 12:00 Resp 18 07/28/24 12:00 BP 149/75 07/28/24 12:00 Pulse Ox 97 07/28/24 12:00 O2 Del Method Room Air 07/28/24 12:00 07/27/24 07/28/24 07/28/24 22:59 06:59 14:59 Intake Total 100 / 100 360 / 360 Balance 100 / 100 360 / 360 Weight last 48 hrs Weight 124.738 kg Weight 124.738 kg Weight 124.738 kg Physical Exam Narrative: Patient is awake, alert, no distress, on room air No JVD PERRLA S1-S2 regular rate and rhythm per report Lungs fair per report Abdomen soft nontender No pedal edema Data 07/28/24 02:37 07/28/24 02:37 A&P Assessment and plan (1) ELVI (acute kidney injury): Plan 1. Acute kidney injury: Baseline creatinine was normal as ELVI with a creatinine of 1 unclear etiology but suspect probably fluctuating blood pressures and recent addition of HCTZ AND Increasing the dose of lisinopril, as well as osmotic diuresis in the setting of hyper glycemia - Continue to monitor renal function for now, will check renal ultrasound and urine electrolytes and urine eosinophils. 2. Hypertension: Holding lisinopril and HCTZ blood pressure stable currently 3. Hyponatremia, mild, monitor 4. A-fib with RVR 5. History of COPD 6. History of diabetes Patient evaluated using audiovisual cart. Time spent 40 minutes. PDMP PDMP Reviewed: Not Reviewed Consult Attestations Medical Necessity Statement: Per medicine team Coding Level of Care Code Acute Code for Chg Fwd Diagnoses ELVI (acute kidney injury) N17.9
--- NOTE | 2024-07-28 13:22 | US_ITS ---
WS: [id number] RENAL ULTRASOUND HISTORY: kaya COMPARISON: 12/10/2022 TECHNIQUE: 2-D and color Doppler imaging of the kidney submitted. Right kidney: 14.1 cm x 4.3 cm x 4.1 cm. Cortex: 1.8 cm Anteriorly rotated RIGHT kidney is mildly enlarged. No hydronephrosis. Left kidney: 13.6 cm x 5.5 cm x 5.8 cm. Cortex: 1.6 cm Normal echogenicity with no hydronephrosis or mass. Aorta: Normal. Urinary Bladder: Nondistended. US/US renal BI* [id number] IMPRESSION: 1. Kidneys are measuring large in length but this is stable over multiple prio r years. 2. No hydronephrosis. 3. Nondistended urinary bladder.
[2024-07-28 16:59] LABS: Glucose Point of Care 312 mg/dL (70-110)
--- NOTE | 2024-07-28 17:06 | PC.NURSE ---
Pt eats [employer] prior to blood sugar check.
[2024-07-28 18:19] LABS: Urine Random Sodium 61 mmol/L
[2024-07-28 18:20] LABS: Chloride Urine Random 44 mmol/L
[2024-07-28 20:52] LABS: Glucose Point of Care 163 mg/dL (70-110)
[2024-07-28] MEDS: insulin glargine 100 units/1 mL 35 UNIT SUBCUT (21:10)
[2024-07-28] MEDS: atorvastatin 40 mg Tablet PO (21:10)
[2024-07-28] MEDS: ascorbic acid 500 mg Tablet 1000 MG PO (21:11)
[2024-07-28] MEDS: rivaroxaban 10 mg Tablet 20 MG PO (21:11)
[2024-07-28] MEDS: amiodarone 200 mg Tablet PO (21:11)
[2024-07-29] VITALS: BP 108/58; PULSE 67; RESP 17; TEMP 36.9; O2SAT 92
[2024-07-29 04:00] VITALS: BP 148/80; PULSE 67; RESP 16; TEMP 36.4; O2SAT 94
[2024-07-29 05:40] LABS: Basophils # 0.1 10^3/uL (0.0-0.1); Basophils % 0.5 %; Eosinophils # 0.4 10^3/uL (0.0-0.8); Eosinophils % 2.7 %; Hematocrit 46.6 % (36-47); Lymphocytes # 3.9 10^3/uL (0.8-4.8); Lymphocytes % 29.6 %; Mean Corpuscular HGB Conc 32.4 g/dL (30-55); Mean Corpuscular Hemoglobin 29.5 pg (27-33); Mean Platelet Volume 12.2 fL (7.4-10.4); Monocytes # 1.2 10^3/uL (0.2-0.9); Monocytes % 9.1 %; Neutrophils # 7.52 10^3/uL (1.8-7.7); Neutrophils % 57.6 %; Nucleated Red Blood Cells % 0 %; Platelet Count 213 10^3/cmm (157-399); Red Blood Count 5.12 10^6/uL (3.85-5.65); Red Cell Distribution Width 12.8 % (12.1-15.1); White Blood Count 13.05 10^3/uL (3.29-11.43)
[2024-07-29 06:01] LABS: Anion Gap 12.7 (5-19); Blood Urea Nitrogen 41 mg/dL (8-23); Calcium 7.9 mg/dL (8.5-10.5); Carbon Dioxide 26 mmol/L (22-29); Chloride 103 mmol/L (98-107); Creatinine Clr Calc Pharmacy 91.1443; Glomerular Filtration Rate 63.9 mL/min (90-130); Glucose 169 mg/dL (65-115); Osmolality Calculated 300 mOsm/kg (285-295); Potassium 3.7 mmol/L (3.5-5.1); Sodium 138 mmol/L (136-145)
[2024-07-29 06:15] LABS: Glucose Point of Care 183 mg/dL (70-110)
[2024-07-29 08:00] VITALS: BP 150/75; PULSE 70; RESP 18; TEMP 36.6; O2SAT 95
--- NOTE | 2024-07-29 08:31 | PM.DCS ---
Discharge Providers Date of Admission: 07/27/24 17:36 Date of Discharge: July 29, 2024 Attending Provider at Admission: Katerina Joseph MD Attending Provider at Discharge: Katerina Joseph MD Primary Care Provider: RICHARD Sotelo Diagnoses at Discharge Discharge Diagnosis (1) ELVI (acute kidney injury): Status: Resolved Reason for Visit Reason for Visit: Stemi Hospital Course Hospital Course Patient presented to the hospital for atypical chest pain, dizziness. Cardiology was consulted who stated that chest pain was not cardiac in origin and other etiology needs to be looked at. Patient also had an ELVI. Nephrotoxic medications were held. Lisinopril was stopped. Patient was switched to amlodipine 5 mg daily and asked to titrate up to 10 show blood pressure started to stay higher. Creatinine normalized. She was given IV fluids. Patient's chest pain also resolved and she was discharged home in stable condition. Patient does have a history of situational anxiety. Nephrology was also consulted initially. Blood sugar was high upon admission and patient also had pseudohyponatremia. Hemoglobin A1c 10.1. Patient will follow-up with primary care doctor. Patient does have a history of falls secondary to vertigo and she is currently in the process of completing workup with ENT and specialist in [place]. She is going to be having a vestibular MRI scheduled as an outpatient. Patient was advised to continue to follow-up with her previously scheduled appointments going forward. Patient is agreeable to that. Physical Exam Narrative: General: Alert oriented x3, NAD, sitting up in bed HEENT: Normocephalic, atraumatic, EOMI, Cardio: Regular rate rhythm, normal S1-S2 Respiratory: Clear to auscultation bilaterally no wheezes no rhonchi, diminished breath sounds at bases. GI: Abdomen soft, nontender, nondistended, bowel sounds + Extremities: No edema bilateral lower extremities. Discharge Data Studies Completed and Pending Completed Studies During Hospitalization Category Date Time Status CXRP [XR chest 1V portable [id number]] Stat Exams 07/27/24 15:01 Completed CV. echo complete* [id number] Routine Ultrasound 07/27/24 Completed US renal BI* [id number] Routine Ultrasound 07/28/24 13:22 Completed Pending at discharge Category Date Time Status Beta-Hydroxybutyrate Routine Lab 07/27/24 21:00 Received Urinalysis Routine Lab 07/27/24 19:24 Uncollected Radiology Impressions Chest X-Ray 07/27/24 15:01 IMPRESSION: Stable chest with no acute abnormality. Renal Ultrasound 07/28/24 13:22 IMPRESSION: 1. Kidneys are measuring large in length but this is stable over multiple prior years. 2. No hydronephrosis. 3. Nondistended urinary bladder. Laboratory Results WBC 13.05 10^3/uL (3.29-11.43) H 07/29/24 04:43 RBC 5.12 10^6/uL (3.85-5.65) 07/29/24 04:43 Hgb 15.10 g/dL (11.27-16.99) 07/29/24 04:43 Hct 46.6 % (36-47) 07/29/24 04:43 MCV 91.0 fl (85-98) 07/29/24 04:43 MCH 29.5 pg (27-33) 07/29/24 04:43 MCHC 32.4 g/dL (30-55) 07/29/24 04:43 RDW 12.8 % (12.1-15.1) 07/29/24 04:43 Plt Count 213 10^3/cmm (157-399) 07/29/24 04:43 MPV 12.2 fL (7.4-10.4) H 07/29/24 04:43 Neut % (Auto) 57.6 % 07/29/24 04:43 Lymph % (Auto) 29.6 % 07/29/24 04:43 [place] % (Auto) 9.1 % 07/29/24 04:43 Eos % (Auto) 2.7 % 07/29/24 04:43 Baso % (Auto) 0.5 % 07/29/24 04:43 Neut # (Auto) 7.52 10^3/uL (1.8-7.7) 07/29/24 04:43 Lymph # (Auto) 3.9 10^3/uL (0.8-4.8) 07/29/24 04:43 [place] # (Auto) 1.2 10^3/uL (0.2-0.9) H 07/29/24 04:43 Eos # (Auto) 0.4 10^3/uL (0.0-0.8) 07/29/24 04:43 Baso # (Auto) 0.1 10^3/uL (0.0-0.1) 07/29/24 04:43 Nucleated RBC % (auto) 0 % 07/29/24 04:43 Nucleated RBCs # 0.0 /100WBC 07/29/24 04:43 Sodium 138 mmol/L (136-145) 07/29/24 04:43 Potassium 3.7 mmol/L (3.5-5.1) 07/29/24 04:43 Chloride 103 mmol/L (98-107) 07/29/24 04:43 Carbon Dioxide 26 mmol/L (22-29) 07/29/24 04:43 Anion Gap 12.7 (5-19) 07/29/24 04:43 BUN 41 mg/dL (8-23) H 07/29/24 04:43 Creatinine 0.9 mg/dL (0.5-0.9) 07/29/24 04:43 GFR Calculation 63.9 mL/min (90-130) L 07/29/24 04:43 Glucose 169 mg/dL (65-115) H 07/29/24 04:43 POC Glucose 183 mg/dL (70-110) H 07/29/24 06:11 Estimat Average Glucose 266 07/27/24 20:04 Hemoglobin A1c 10.9 % (4.0-6.0) H 07/27/24 20:04 Calculated Osmolality 300 mOsm/kg (285-295) H 07/29/24 04:43 Calcium 7.9 mg/dL (8.5-10.5) L 07/29/24 04:43 Phosphorus 4.2 mg/dL (2.5-4.5) 07/28/24 02:37 Magnesium 2.0 mg/dL (1.7-2.3) 07/29/24 04:43 Total Bilirubin 0.3 mg/dL (0.15-1.2) 07/28/24 02:37 AST 9 U/L (0-32) 07/28/24 02:37 ALT 10 U/L (0-33) 07/28/24 02:37 Alkaline Phosphatase 105 U/L (35-105) 07/28/24 02:37 Troponin T Baseline 18 ng/L (0-10) H 07/27/24 15:06 Troponin T 120 Minute 17.53 ng/L (0-10) H 07/27/24 17:08 Delta Troponin T -0.47 ABS# (0-10) L 07/27/24 17:08 Troponin T Hi Sens 6Hr 18.08 ng/L (0-10) H 07/27/24 21:00 Troponin T Hi Sens 6Hr Delta 0.08 ng/L (0-12) 07/27/24 21:00 NT-Pro-B Natriuret Pep 166 pg/mL (0-125) H 07/28/24 02:37 Total Protein 4.7 g/dL (6.6-8.7) L 07/28/24 02:37 Albumin 2.2 g/dL (3.5-5.2) L 07/28/24 02:37 Globulin 2.5 g/dL (1.3-4.6) 07/28/24 02:37 Triglycerides 665 mg/dL (0-150) H 07/27/24 20:04 Cholesterol 207 mg/dL (0-200) H 07/27/24 20:04 LDL Cholesterol Direct 106 mg/dL (0-100) H 07/27/24 20:04 LDL Cholesterol, Calc Not Reportable 07/27/24 20:04 Total VLDL Cholesterol 133 mg/dL (0-30) H 07/27/24 20:04 HDL Cholesterol 46 mg/dL (60-100) L 07/27/24 20:04 Cholesterol/HDL Ratio 4.50 mg/dL (0.0-4.40) H 07/27/24 20:04 TSH 1.59 uIU/mL (0.27-4.20) 07/27/24 20:04 Urine Color Yellow (Yellow) 07/27/24 17:23 Urine Appearance Cloudy (CLEAR) A 07/27/24 17: Urine pH 5.0 (5-7) 07/27/24 17: Ur Specific [place] 1.020 (1.005-1.030) 07/27/24 17: Urine Protein 3+ (Negative) A 07/27/24 17: Urine Glucose (UA) 2+ (Normal) H 07/27/24 17: Urine Ketones Negative (Negative) 07/27/24 17: Urine Blood 2+ (Negative) A 07/27/24 17:23 Urine Nitrate Negative (Negative) 07/27/24 17:23 Urine Bilirubin Negative (Negative) 07/27/24 17:23 Urine Urobilinogen 1.0 mg/dL (Negative) 07/27/24 17:23 Ur Leukocyte Esterase 2+ (Negative) A 07/27/24 17:23 Urine RBC 3-5 /hpf (0-2) 07/27/24 17:23 Urine WBC 25-40 /hpf (0-5) H 07/27/24 17:23 Ur Squamous Epith Cells 10-15 /hpf (0-5) H 07/27/24 17:23 Amorphous Sediment Not Reportable 07/27/24 17:23 Urine Bacteria 1+ /hpf (NONE) H 07/27/24 17:23 Hyaline Casts 30.18 /lpf 07/27/24 17:23 Urine Yeast Trace /hpf 07/27/24 17:23 Ur Random Sodium 61 mmol/L 07/28/24 17:08 Ur Random Chloride 44 mmol/L 07/28/24 17:08 Influenza A (PCR) Negative (Negative) 07/27/24 18:09 Influenza Type B (PCR) Negative (Negative) 07/27/24 18:09 RSV (PCR) Negative (Negative) 07/27/24 18:09 SARS-CoV-2 (PCR) Negative (Negative) 07/27/24 18:09 Vitals Last Vital Signs Temp 97.8 F 07/29/24 08:00 Pulse 70 07/29/24 08:00 Resp 18 07/29/24 08:00 BP 150/75 07/29/24 08:00 Pulse Ox 95 07/29/24 08:00 O2 Del Method Room Air 07/29/24 08:00 Discharge Plan Discharge Patient Disposition: Home Condition: Stable Prescriptions: New amlodipine 10 mg tablet 5 mg PO DAILY Qty: 30 0RF Continued (DME) Diabetic Shoes with 3 Pairs of Inserts See Rx Instructions .Route .MEDSUPPLY Qty: 1 0RF Rx Instructions: As directed by HOME (DME) Diabetic shoes with 3 sets of inserts See Rx Instructions .Route .MEDSUPPLY Qty: 1 0RF Rx Instructions: As directed by [facility] (DME) blood-glucose meter Misc See Rx Instructions .Route Qty: 1 0RF Rx Instructions: As directed promethazine-DM 6.25-15 mg/5 mL syrup 5 - 10 ml PO Q6H PRN (Reason: cough) Qty: 240 0RF tizanidine 2 mg tablet 2 mg PO BEDTIME@22 Qty: 30 2RF Xarelto 20 mg tablet 20 mg PO BEDTIME@22 Qty: 30 2RF (DME) pen needle, diabetic [Comfort EZ Pen [place]] 31 gauge x 5/16 needle See Rx Instructions .Route Qty: 1200 2RF Rx Instructions: As directed levocetirizine 5 mg tablet 5 mg PO BID Qty: 60 5RF (DME) lancets Misc See Rx Instructions .Route Qty: 100 3RF Rx Instructions: once daily dulaglutide 4.5 mg/0.5 mL pen injector 4.5 mg SUBCUT .weekly Qty: 2 2RF Rx Instructions: [place] [place] Glucose Test Strip See Rx Instructions .Route Qty: 100 3RF Rx Instructions: once daily atorvastatin 40 mg tablet 40 mg PO BEDTIME@22 Qty: 30 5RF metoprolol tartrate 25 mg tablet 25 mg PO Q12H Qty: 60 2RF doxepin 25 mg capsule 25 mg PO BEDTIME@22 Qty: 30 2RF albuterol sulfate 90 mcg/actuation HFA aerosol inhaler 2 puff INHALATION QID PRN (Reason: Shortness Of Breath) Qty: 6.7 5RF gabapentin 300 mg capsule 300 mg PO BID@10,22 Qty: 60 2RF duloxetine 60 mg capsule,delayed release(DR/EC) 60 mg PO BID@10,22 Qty: 60 2RF (DME) 12 pairs of diabetic socks See Rx Instructions .Route .MEDSUPPLY Qty: 1 0RF Rx Instructions: As directed by [facility] [place] Diabetic Shoes with 3 pairs of inserts- build up to the right See Rx Instructions .Route .MEDSUPPLY Qty: 1 0RF Rx Instructions: As directed by [facility] amiodarone [Pacerone] 200 mg tablet 200 mg PO DAILY Qty: 90 1RF [place] blood[place]glucose meter [place]True Metrix Glucose Meter] [facility] [place] Instructions .Route Qty: 1 0RF Rx Instructions: As directed [place] [place] True Metrix Glucose Test Strip Strip See Rx Instructions .Route Qty: 300 3RF Rx Instructions: TID (DME) lancets 31 gauge misc See Rx Instructions .Route Qty: 300 3RF Rx Instructions: As directed nitroglycerin [Nitrostat] 0.4 mg Tablet, Sublingual 0.4 mg SUBLINGUAL Q5M PRN (Reason: Chest Pain) Rx Instructions: do not exceed 3 doses per episode ascorbate calcium (vitamin C) 500 mg Tablet 1,000 mg PO BEDTIME clobetasol 0.05 % ointment See Rx Instructions .ROUTE .COMPLEX Rx Instructions: APPLY TOPICALLY TO THE AFFECTED AREA OF BOTH HANDS NO MORE THAN TWO WEEKS PER MONTH. nystatin 100,000 unit/gram cream 1 applic topical BID PRN (Reason: Skin Irritation) Changed insulin glargine [Lantus Solostar U-100 Insulin] 100 unit/mL (3 mL) insulin pen 40 unit SUBCUT BEDTIME Qty: 15 2RF Discontinued lisinopril 40 mg tablet 40 mg PO DAILY Qty: 30 2RF prednisone 20 mg tablet 20 mg PO BID Qty: 10 0RF doxycycline hyclate 100 mg tablet 100 mg PO BID Qty: 20 0RF hydrochlorothiazide 25 mg tablet 25 mg PO DAILY Qty: 30 5RF Discharge Orders: Discharge Order (Routine); Ordered 07/29/24 Ordered By: Katerina Joseph Referrals: Cristina Canela FNP-C [Primary Care Provider, Family Practice] - 08/03/24 11:00 am Referral Note: Sunitha Danielson FNP [Nurse Practitioner, Cardiology] - 08/23/24 8:30 am Discharge Diet: Cardiac and Diabetic Discharge Activity: Limit activity as instructed Patient Instructions: Amlodipine (By mouth), Acute Kidney Injury (DC), Vertigo (DC), Opioid Safety Discharge Attestations Time Spent in Discharge Care*: greater than 30 min Quality Metrics Clinical Quality Measures [ No reported AMI, CVA or VTE this stay] Coding Level of Care Code Acute Code for [facility] Fwd Diagnoses ELVI (acute kidney injury) N17.9
[2024-07-29] MEDS: aspirin 81 mg EC Tablet PO (08:58)
[2024-07-29] MEDS: doxycycline 100 mg Tablet PO (08:58)
[2024-07-29] MEDS: insulin lispro 100 unit/1 mL SUBCUT (08:58)
[2024-07-29] MEDS: metoprolol tartrate 25 mg Tablet PO (08:58)
[2024-07-29] MEDS: cetirizine 10 mg Tablet 5 MG PO (08:59)
[2024-07-29] MEDS: duloxetine 60 mg Capsule PO (09:02)
--- NOTE | 2024-07-29 09:05 | PM.PN ---
Subjective Subjective: denies any complaints Medications: Reviewed: Yes Vitals/I&O/Wt Last Vital Signs Temp 97.8 F 07/29/24 08:00 Pulse 70 07/29/24 08:00 Resp 18 07/29/24 08:00 BP 150/75 07/29/24 08:00 Pulse Ox 95 07/29/24 08:00 O2 Del Method Room Air 07/29/24 08:00 07/28/24 07/29/24 07/29/24 22:59 06:59 14:59 Intake Total 120 / 480 120 / 120 Output Total 450 / 450 400 / 850 Balance -330 / 30 -400 / -370 120 / 120 Weight last 48 hrs Weight 118.841 kg Weight 124.738 kg Weight 124.738 kg Weight 124.738 kg Physical Exam Narrative: Patient is awake, alert, no distress, on room air No JVD PERRLA S1-S2 regular rate and rhythm per report Lungs fair per report Abdomen soft nontender No pedal edema Data 07/29/24 04:43 07/29/24 04:43 A&P Assessment and plan (1) ELVI (acute kidney injury): Plan 1. Acute kidney injury: Baseline creatinine was normal as ELVI with a creatinine of 1 unclear etiology but suspect probably fluctuating blood pressures and recent addition of HCTZ AND Increasing the dose of lisinopril, as well as osmotic diuresis in the setting of hyper glycemia - Cr back to baseline , No hydronephrosis on US 2. Hypertension: Holding lisinopril and HCTZ blood pressure stable currently 3. Hyponatremia, resolved 4. A-fib with RVR 5. History of COPD 6. History of diabetes Patient evaluated using audiovisual cart. Time spent 40 minutes. PDMP PDMP Reviewed: Not Reviewed Attestations Medical Necessity Statement*: per [facility] Coding Level of Care Code Acute Code for [facility] Diagnoses ELVI (acute kidney injury) N17.9
[2024-07-29 11:00] LABS: Glucose Point of Care 195 mg/dL (70-110)
[2024-08-03 23:09] LABS: Beta-Hydroxybutyrate 0.07 mmol/L
== END 2024-07-29 11:35 | disposition home or self-care (01) | DRG 683 ==
LOC: ER 17:03 → CSU 17:38 → MEDSURG 07-28 03:43
PROVIDERS: Family Medicine; Hospitalist; Admitting Provider Internal Medicine; Emergency Provider Emergency Medicine; PCP Nurse Practitioner Family; Visit Provider Internal Medicine
DX: N17.9 Acute kidney failure, unspecified (principal); I48.92 Unspecified atrial flutter; R07.9 Chest pain, unspecified; I48.91 Unspecified atrial fibrillation; Z79.899 Other long term (current) drug therapy; Z79.01 Long term (current) use of anticoagulants; Z79.4 Long term (current) use of insulin; Z88.1 Allergy status to other antibiotic agents; Z88.2 Allergy status to sulfonamides; F17.210 Nicotine dependence, cigarettes, uncomplicated; E11.65 Type 2 diabetes mellitus with hyperglycemia; R29.6 Repeated falls; E78.5 Hyperlipidemia, unspecified; K21.9 Gastro-esophageal reflux disease without esophagitis; I10 Essential (primary) hypertension; R42 Dizziness and giddiness; Z79.52 Long term (current) use of systemic steroids
CPT/HCPCS: 36415; 36416; 71045; 76770; 80048; 80053; 80061; 81001; 82010; 82436; 82962; 83036; 83721; 83735; 83880; 84100; 84300; 84443; 84484; 85025; 87637; 93005; 93306; 96361; 96372; 96374; 99285; A9270; J1644; J1815; J7030; J9999

== ENCOUNTER 2024-08-03 06:58 | Outpatient (CLI) | payer MEDICAID, SELFPAY ==
--- NOTE | 2024-08-03 07:02 | MR_ITS ---
WS: [id number] MRI HEAD WITH CONTRAST WITH ATTENTION TO THE INTERNAL AUDITORY CANALS TECHNIQUE: Sagittal T1, T2 axial, T2 axial flair, axial susceptibility weighted imaging, axial diffusion weighted images, and coronal T2 images were obtained. Pre and post T1 axial and post T1 coronal images. ADC and FSPGR images. Post gadolinium images with attention to the internal auditory canals. Axial fiesta imaging. CLINICAL INFORMATION: DIZZINESS COMPARISON: CT 06/10/2024 FINDINGS: 2 tiny punctate foci of restricted diffusion in the RIGHT inferior cerebellum involving the RIGHT cerebellar tonsil compatible with acute ischemia. No significant mass effect or midline shift. No other foci of restricted diffusion. No hemosiderin on the susceptibility weighted imaging. Mild small vessel changes. Small vessel changes in the keshav. Chiari I malformation. Normal fourth ventricle. Mild crowding of the foramen magnum. No hydrocephalus. Normal fourth ventricle. Cerebellar tonsils approximately 5 mm below the foramen magnum. Proximal 7th and 8th cranial nerves are normal in appearance. Normal trigeminal nerve root entry zones. No evidence of enhancing IAC or CP angle mass. LEFT greater than RIGHT mastoid effusions. Tiny chronic lacunar infarcts in the RIGHT greater than LEFT cerebellum. Normal posterior nasopharynx. Mild mucosal thickening in the paranasal sinuses. MR/MR iac's wo/w con* [id number] IMPRESSION: Some images degraded by patient motion. 1. 2 tiny punctate foci of restricted diffusion in the inferior RIGHT cerebell um suspicious for tiny acute lacunar infarcts. The largest measures approximate ly 3.5 mm. No other foci of restricted diffusion. Recommend MRA or CTA of the h ead and neck 2. Tiny lacunar infarcts in the RIGHT greater than LEFT cerebellum. 3. Mild small vessel changes. Small vessel changes in the keshav. 4. Chiari I malformation with cerebellar tonsils 5 mm below the foramen magnum . Mild crowding at the foramen magnum. No hydrocephalus. 5. No evidence of enhancing IAC or CP angle mass 6. Prominent pituitary tissue for a patient of this age with slight suprasella r extension. Recommend correlation with pituitary function studies. This could be followed up with MRI pituitary protocol in 3 to 6 months.
[2024-08-03] MEDS: gadobenate dimeglumine 20 mL vial IV (08:19)
== END 2024-08-03 06:59 | disposition home or self-care (01) ==
PROVIDERS: PCP Nurse Practitioner Family; Visit Provider Specialist
DX: R42 Dizziness and giddiness (principal); R93.0 Abnormal findings on diagnostic imaging of skull and head, not elsewhere classified; G93.5 Compression of brain; H74.8X3 Other specified disorders of middle ear and mastoid, bilateral; J34.89 Other specified disorders of nose and nasal sinuses
CPT/HCPCS: 70553

== ENCOUNTER → 2024-08-23 08:43 | Outpatient (BNVA) | payer MEDICAID, SELFPAY | PROVIDERS: PCP Nurse Practitioner Family; Visit Provider Nurse Practitioner Family | DX: I48.0 Paroxysmal atrial fibrillation (principal); Z79.01 Long term (current) use of anticoagulants; I10 Essential (primary) hypertension; N17.9 Acute kidney failure, unspecified; Z72.0 Tobacco use | CPT/HCPCS: 99214 ==

== ENCOUNTER → 2024-08-24 09:55 | Outpatient (BNVA) | payer MEDICAID, SELFPAY | PROVIDERS: PCP Nurse Practitioner Family; Visit Provider Nurse Practitioner Family | DX: E11.65 Type 2 diabetes mellitus with hyperglycemia (principal); Z79.4 Long term (current) use of insulin | CPT/HCPCS: 80053; 80061; 83036; 84443; 85025 ==

== ENCOUNTER → 2024-08-26 08:35 | Outpatient (BNVA) | payer MEDICAID, SELFPAY | PROVIDERS: PCP Nurse Practitioner Family; Visit Provider Nurse Practitioner Family | DX: L57.8 Other skin changes due to chronic exposure to nonionizing radiation (principal); L81.4 Other melanin hyperpigmentation; D22.5 Melanocytic nevi of trunk; Z08 Encounter for follow-up examination after completed treatment for malignant neoplasm; Z85.828 Personal history of other malignant neoplasm of skin | CPT/HCPCS: 99213 ==

== ENCOUNTER → 2024-09-02 13:56 | Outpatient (BNVA) | payer MEDICAID, SELFPAY | PROVIDERS: PCP Nurse Practitioner Family; Referring Provider Nurse Practitioner Family; Visit Provider Student in an Organized Health Care Education/Training Program | DX: K92.1 Melena (principal) | CPT/HCPCS: 99203 ==

== ENCOUNTER → 2024-09-27 09:16 | Outpatient (BNVA) | payer MEDICAID, SELFPAY | PROVIDERS: PCP Nurse Practitioner Family; Visit Provider Nurse Practitioner Family | DX: I48.0 Paroxysmal atrial fibrillation (principal); Z79.01 Long term (current) use of anticoagulants; I10 Essential (primary) hypertension; Z72.0 Tobacco use; I47.10 Supraventricular tachycardia, unspecified | CPT/HCPCS: 99214 ==

== ENCOUNTER → 2024-09-30 09:44 | Outpatient (BNVA) | payer MEDICAID, SELFPAY | PROVIDERS: PCP Nurse Practitioner Family; Visit Provider Internal Medicine Cardiovascular Disease | DX: I47.10 Supraventricular tachycardia, unspecified (principal) | CPT/HCPCS: 80048 ==

== ENCOUNTER 2024-10-04 13:19 | Emergency (ER) | payer MEDICAID, SELFPAY ==
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
--- NOTE | 2024-10-04 13:21 | ECG_ITS ---
[facility] Test Date: 2024-10-04 Pat Name: Soni Head Department: Room: Gender: Female Stock Roller: : 1965 Requested By: Keshav Quintero Order Number: [id number] Eric MD: Theodora Valladares M.D. Measurements Intervals [place] Rate: 54 P: 11 SC: 212 QRS: 13 QRSD: 103 T: 51 QT: 496 QTc: 474 Interpretive Statements SINUS BRADYCARDIA WITH FIRST DEGREE AV BLOCK PROLONGED QT INTERVAL Compared to ECG 07/28/2024 03:18:23 First degree AV block now present Poor R wave progression Prolonged QT interval now present Sinus rhythm no longer present Intraventricular conduction delay no longer present T-wave abnormality no longer present Possible ischemia no longer present Electronically Signed On 10-05-2024 09:52:20 CDT by Theodora Valladares M.D. [email or web address]
[2024-10-04 13:23] VITALS: BP 157/74; PULSE 89; RESP 16; TEMP 36.6; O2SAT 98; BMI 43.5
--- OUTSIDE RECORDS SUMMARY | 2024-10-04 13:26 | XMS_ITS | Encounter Summary ---
Author Organization [facility] Address [address] [place] [address] Care Team Providers Care Asian Art Curator Name Role Phone Ángel Vance GLOBAL COMPENSATION ANALYST Primary Care Provider [phone]- [phone] Reason for Referral * (Routine) - Open Specialty Diagnoses / Procedures Referred By Contac t Referred To Contact Audiology Diagnoses Dizziness and giddiness Procedures IN OFFICE/OUTPATIENT ESTABLISHED MOD MDM 30 MIN IN OFFICE/OUTPATIENT NEW MODERATE MDM 45 MINUTES Chepe Sánchez MD [address] [place] [address] Phone: tel: fax: [facility] Audiology [address] [place] [address] Phone: tel: fax: Referral ID Status Reason Start Date Expiration Date Visits Re quested Visits Authorized [id number] Open 10/04/2024 10/04/2025 1 1 Encounter Details Date Type Department Care Team (Late st Contact Info) Description 10/04/2024 Abstract [facility] Audiology [address] [place] [address] Joyce Flores Otolaryngology Physician 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 Gender Identity Not on file Sexual Orientation Not on file documented as of this encounter Plan of Treatment Scheduled Referrals Name Type Priority Associated Diagnoses Orde r Schedule AMB REFERRAL TO AUDIOLOGY Outpatient Referral Routine Dizziness and giddiness Ordered: 10/04/2024 documented as of this encounter Visit Diagnoses Diagnosis Dizziness and giddiness- Primary documented in this encounter Care Teams Asian Art Curator Relationship Specialty Start Date End Date Ángel Vance, HUSSAIN [address] [place] [phone] PCP - General NURSE PRACTITIONER 04/21/21 documented as of this encounter
--- OUTSIDE RECORDS SUMMARY | 2024-10-04 13:26 | XMS_ITS | Encounter Summary ---
Author Organization [facility] Address [address] [place] [address] Care Team Providers Care Dining Server Name Role Phone Unavailable Primary Care Provider Unavailabl e Encounter Details Date Type Department Care Team (Latest Contact Info) Description 07/19/2004 Outpatient Historical [facility] 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
--- OUTSIDE RECORDS SUMMARY | 2024-10-04 13:26 | XMS_ITS | Clinical Summary ---
Author Organization Address [address] 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 Gender Identity Not on file Sexual Orientation Not on file Plan of Treatment Health Maintenance Due Date Last Done Comments DTAP/TDAP/TD VACCINES (1 - Tdap) 1983 HPV/Cotest (21-29) 1985 CERVICAL CANCER SCREENING 1994 HPV/Cotest (30-65) 1994 PAP SMEAR 1994 BREAST CANCER SCREENING 2004 COLORECTAL SCREENING 2009 Colorectal Cancer Screening 2009 FIT-DNA Q 3 years 2009 FIT/FOBT Q 1 year 2009 Flex Sig/CT Colonography Q 5 years 2009 ZOSTER VACCINE (1 of 2) 2014 INFLUENZA VACCINE (#1) 2024 RSV VACCINE (60+ or ) (1 - 1-dose 75+ series) 2039 HEPATITIS B VACCINES Aged Out No long er eligible based on patient's age to complete this topic
--- OUTSIDE RECORDS SUMMARY | 2024-10-04 13:26 | XMS_ITS | Clinical Summary ---
Author Organization [facility] Address [address] [address] Phone Care Team Providers Care Campus Security Director Name Role Phone Ángel Vance CASTING MACHINE SERVICE OPERATOR Primary Care Provider [phone] Allergies Active Allergy Reactions Criticality Noted Date Comments Azithromycin Other (See Comments) 04/21/2021 Stomach cramping Sulfa (Sulfonamide Antibiotics) Other (See Comments) 04/21/2021 Stomach cramping Medications atorvastatin (LIPITOR) 20 mg tablet Take 20 mg by mouth daily. Active cyclobenzaprine (FLEXERIL) 5 mg Tablet Take 5 mg by mouth 3 times daily as needed for Spasm. Active diltiaZEM (CARDIZEM LA) 120 mg Extended Release 24 hour tablet Take 120 mg by mouth daily. Active DULoxetine (CYMBALTA) 60 mg Capsule, Delayed Release(E.C.) Take 60 mg by mouth 2 times daily. Active flecainide (TAMBOCOR) 100 mg tablet Take 100 mg by mouth 2 times daily. Active furosemide (LASIX) 20 mg tablet Take 20 mg by mouth daily. Active glipiZIDE (GLUCOTROL) 10 mg tablet Take 10 mg by mouth 2 times daily with meals. Active lisinopriL (PRINIVIL) 20 mg tablet Take 20 mg by mouth daily. Active clindamycin HCL (CLEOCIN) 300 mg Capsule Take 300 mg by mouth 3 times daily. Active pantoprazole (PROTONIX) 40 mg Tablet, Delayed Release (E.C.) Take 40 mg by mouth daily. Active rivaroxaban (Xarelto) 20 mg Tablet Take 20 mg by mouth daily with supper. Active Teofiloop,hattie,la c,rha/B.lac,douglas (ADVANCED PROBIOTIC ORAL) Take 1 Capsule by mouth 2 times daily. Active omega-3 acid ethyl esters (LOVAZA) 1 gram Capsule Take 1 Gram by mouth daily. Active ibuprofen (MOTRIN) 600 mg tablet Take 600 mg by mouth every 6 hours as needed for Pain, Mild. Active acetaminophen (TYLENOL) 500 mg tablet Take 1,000 mg by mouth every 6 hours as needed. Active insulin aspart (NovoLOG) 100 unit/mL injection Inject by subcutaneous injection. SLIDING SCALE Active insulin detemir U-100 (LEVEMIR) 100 unit/mL pen syringe Inject 50 Units by subcutaneous injection daily at bedtime. Active liraglutide (VICTOZA 2-ERIC SUBCUT) Inject 0.6 mg by subcutaneous injection daily at bedtime. Active Encounters Date Type Department Care Team Description 10/04/2024 Abstract [facility] Audiology [address] [place] [address] Gf Amb, Otolaryngology Physician Dizziness and giddiness (Primary Dx) from Last 3 Months Immunizations Immunization Administration Dates Next Due Hepatitis [...] on file Legal Sex Female 12:59 AM TUBE TESTER Gender Identity Not on file Sexual Orientation Not on file Last Filed Vital Signs Vital Sign Reading Time Taken Comments Blood Pressure 134/62 04/17/2022 12:15 PM TUBE TESTER Pulse 75 04/17/2022 12:15 PM TUBE TESTER Temperature 37.2 C (98.9 F) 04/17/2022 7:24 AM TUBE TESTER Respiratory Rate 20 04/17/2022 12:15 PM TUBE TESTER Oxygen Saturation 91% 04/17/2022 12:15 PM TUBE TESTER Inhaled Oxygen Concentration - - Weight 110.2 kg (243 lb) 04/17/2022 7:24 AM TUBE TESTER Height 170.2 cm (5' 7 ) 04/17/2022 7:24 AM TUBE TESTER Body Mass Index 38.06 04/17/2022 7:24 AM TUBE TESTER Plan of Treatment Health Maintenance Due Date Last Done Comments DTAP/TDAP/TD VACCINES (1 - Tdap) 1983 HPV/Cotest (21-29) 1985 CERVICAL CANCER SCREENING 1994 HPV/Cotest (30-65) 1994 PAP SMEAR 1994 COLORECTAL SCREENING 2009 Colorectal Cancer Screening 2009 FIT-DNA Q 3 years 2009 FIT/FOBT Q 1 year 2009 Flex Sig/CT Colonography Q 5 years 2009 ZOSTER VACCINE (1 of 2) 2014 INFLUENZA VACCINE (#1) 2024 RSV VACCINE (60+ or ) (1 - 1-dose 75+ series) 2039 HEPATITIS B VACCINES Aged Out No long er eligible based on patient's age to complete this topic Insurance [place]ICAID [place] Care Teams Campus Security Director Relationship Specialty Start Date End Date Ángel Vance NP [address] [place] [phone] PCP - General NURSE PRACTITIONER 04/21/21
--- NOTE | 2024-10-04 13:30 | W.ED.SYNCOPE ---
HPI - Syncope General: Chief Complaint: Syncope Stated Complaint: bradycardia - syncopal episode Time Seen by Provider: 10/04/24 13:21 Source: patient and EMS Mode of arrival: EMS Limitations: no limitations History of Present Illness: 59-year-old female states she was going to the clinic this morning she been having some rapid heart rate she is on metoprolol states she taken her metoprolol today at 10 states when she got to the clinic her heart rate dropped in the 30s and had a near syncopal event states she felt lightheaded patient does not had any meds and route she states she feels much improved her heart rate now 60 she denies any chest pain denies any vomiting. Associated symptoms: Deny abdominal pain, chest pain, fever(s), headache(s) or nausea Related Data Home Medications ?Medication ?Instructions ?Recorded ?Confirmed nitroglycerin 0.4 mg sublingual 0.4 mg sublingual Q5M PRN Chest 06/18/21 10/04/24 tablet (Nitrostat) Pain ascorbate calcium (vitamin C) 500 1,000 mg PO BEDTIME 12/09/22 10/04/24 mg tablet clobetasol 0.05 % topical ointment See Rx Instructions .Route .COMPLEX 11/04/23 10/04/24 nystatin 100,000 unit/gram topical 1 applic topical BID PRN Skin 11/04/23 10/04/24 cream Irritation Previous Rx's ?Medication ?Instructions ?Recorded Diabetic Shoes with 3 Pairs of #1 ea 02/25/22 Inserts Diabetic shoes with 3 sets of #1 ea 05/22/22 inserts 12 pairs of diabetic socks #1 ea 10/29/22 Diabetic Shoes with 3 pairs of #1 ea 11/26/22 inserts- build up to the right blood-glucose meter #1 ea 11/27/22 amiodarone 200 mg tablet (Pacerone) 200 mg PO DAILY #90 tabs 03/25/24 albuterol sulfate 90 mcg/actuation 2 puff inhalation QID PRN 05/25/24 aerosol inhaler Shortness Of Breath #6.7 grams lancets #100 ea 05/25/24 blood sugar diagnostic (True #300 ea 06/24/24 Metrix Glucose Test Strip) blood-glucose meter (True Metrix #1 ea 06/24/24 Glucose Meter) lancets 31 gauge #300 ea 06/24/24 amlodipine 10 mg tablet 5 mg (1/2 x 10 mg) PO DAILY #30 07/29/24 tabs atorvastatin 40 mg tablet 40 mg PO BEDTIME@22 #30 tabs 08/24/24 blood sugar diagnostic (Blood #100 ea 08/24/24 Glucose Test strips) doxepin 25 mg capsule 25 mg PO BEDTIME@22 #30 caps 08/24/24 dulaglutide 4.5 mg/0.5 mL 4.5 mg (0.5 mL) SUBCUT .weekly #2 08/24/24 subcutaneous pen injector mL duloxetine 60 mg capsule,delayed 60 mg PO BID@10,22 #60 caps 08/24/24 release gabapentin 300 mg capsule 300 mg PO BID@10,22 #60 caps 08/24/24 levocetirizine 5 mg tablet 5 mg PO BID #60 tabs 08/24/24 metoprolol tartrate 25 mg tablet 25 mg PO Q12H #60 tabs 08/24/24 pen needle, diabetic 31 gauge x #1,200 ea 08/24/2408/06 (Comfort EZ Pen [place]) rivaroxaban 20 mg tablet (Xarelto) 20 mg PO BEDTIME@22 #30 tabs 08/24/24 tizanidine 2 mg tablet 2 mg PO BEDTIME@22 #30 tabs 08/24/24 insulin glargine 100 unit/mL (3 60 unit (0.6 mL) SUBCUT BEDTIME 08/25/24 mL) subcutaneous pen (Lantus #15 mL Solostar U-100 Insulin) losartan 25 mg tablet 25 mg PO DAILY #30 tabs 09/27/24 cephalexin 500 mg capsule 500 mg PO TID #21 caps 10/04/24 cephalexin 500 mg capsule 500 mg PO TID 7 days #21 caps 10/04/24 nicotine 21 mg/24 hr daily 1 patch transdermal DAILY #28 ea 10/04/24 transdermal patch (Nicoderm CQ) Allergies Allergy/AdvReac Type Severity Reaction Status Date / Time azithromycin (From Zithromax) Allergy Unknown ADR-Gastrointestinal Verified 09/27/24 09:39 Upset sulfamethoxazole (From Allergy Unknown ADR-Gastrointestinal Verified 09/27/24 09:39 Bactrim) Upset trimethoprim (From Bactrim) Allergy Unknown ADR-Gastrointestinal Verified 09/27/24 09:39 Upset Review of Systems Const: Denies: fever(s), chills, body aches or change in appetite ENMT: Denies: throat pain or dental pain Card: Reports: pre-syncope; Denies: chest pain Resp: Denies: dyspnea GI: Denies: abdominal pain, nausea, vomiting or diarrhea Musc: Denies: neck pain or back pain Skin/Breast: Denies: rash Neuro: Denies: headache(s) PFSH ED PFSH: Medical History Osteoarthritis of spine Ulcer of foot, chronic Breast cancer, right Breast cancer, left breast Open wound of foot Right great toe Gastroesophageal reflux disease Diabetes mellitus with hyperglycemia, with long-term current use of insulin Atrial fibrillation COPD (chronic obstructive pulmonary disease) Dyslipidemia SVT (supraventricular tachycardia) Asthma Benign hypertension COPD exacerbation Surgical History History of amputation of great toe H/O esophagogastroduodenoscopy (10/19/21) H/O bilateral mastectomy Status post left breast lumpectomy Status post right breast lumpectomy History of appendectomy History of hysterectomy Family History Father CAD (coronary artery disease) Congestive heart failure (CHF) Hyperlipidemia Hypertension Lung disease Stroke Other Diabetes Denies family history of Clotting disorder Dementia Psychiatric illness Chronic kidney disease (CKD) Suicide Anesthesia complication Bleeding disorder Family history of premature coronary artery disease Cancer Social History Smoking and tobacco/nicotine status: current every day tobacco/nicotine user cigarettes Packs smoked per day: 2 Second hand smoke exposure: Yes Alcohol intake: never Substance/Drug Use: never Adopted: No Caregiver/support person: No Lives independently: Yes Household members: family Housing: House Marital status: Single Number of children: 1 service: No Current occupational status: employed Current gender identity: Female Physical Exam Const: COMMON NORMALS: no acute distress, patient oriented x3 and healthy appearing HENMT: COMMON NORMALS: normocephalic and atraumatic HEAD & SCALP: normocephalic and atraumatic Neck/C-Spine: COMMON NORMALS: full ROM and supple Chest: COMMONS NORMALS: normal inspection of the chest Resp: COMMON NORMALS: normal respiratory effort, No retractions, No use of accessory muscles and clear to auscultation bilaterally AUSCULTATION: clear to auscultation bilaterally Cardio: COMMON NORMALS: regular rate, regular rhythm and No murmurs present (Cardio) RATE: regular rate RHYTHM: regular rhythm GI: COMMON NORMALS: Normal to inspection, nondistended, normoactive bowel sounds present, Soft to palpation, non-tender and no masses PALPATION: Yes Soft to palpation Extremity: COMMON NORMALS: normal to inspection and full ROM Neuro: COMMON NORMALS: patient oriented x3, moves all extremities and no focal motor deficits Psych: COMMON NORMALS: mental status grossly normal, Normal thought process present and cooperative THOUGHT PROCESS: Normal thought process present Skin: COMMON NORMALS: no rashes or lesions noted and no wounds GENERAL SKIN EXAM: no rashes or lesions noted Course Vital Signs: Vital signs: Vital Signs Temperature 97.9 F 10/04/24 13:23 Pulse Rate 56 L 10/04/24 16:09 Respiratory Rate 16 10/04/24 13:23 Blood Pressure 195/97 10/04/24 16:09 Pulse Oximetry 97 10/04/24 16:09 Oxygen Delivery Me thod Room Air 10/04/24 16:09 MDM - Syncope Medical Decision Making Patient presents here after near syncopal event and bradycardia clinic she feels much improved here heart rate here has been normal workup is normal she does have a UTI we will prescribe her Keflex she has follow-up with her PCP and return if worsening she understands agrees to plan. Medical Records I reviewed the patient's medical records. Lab Data I reviewed the patient's lab results. 10/04/24 14:05 10/04/24 14:05 Laboratory Results WBC 11.55 10^3/uL (3.29-11.43) H 10/04/24 14:05 RBC 4.84 10^6/uL (3.85-5.65) 10/04/24 14:05 Hgb 14.30 g/dL (11.27-16.99) 10/04/24 14:05 Hct 42.9 % (36-47) 10/04/24 14:05 MCV 88.6 fl (85-98) 10/04/24 14:05 MCH 29.5 pg (27-33) 10/04/24 14:05 MCHC 33.3 g/dL (30-55) 10/04/24 14:05 RDW 13.3 % (12.1-15.1) 10/04/24 14:05 Plt Count 268 10^3/cmm (157-399) 10/04/24 14:05 MPV 11.0 fL (7.4-10.4) H 10/04/24 14:05 Neut % (Auto) 55.2 % 10/04/24 14:05 Lymph % (Auto) 33.7 % 10/04/24 14:05 [place] % (Auto) 6.9 % 10/04/24 14:05 Eos % (Auto) 3.1 % 10/04/24 14:05 Baso % (Auto) 0.8 % 10/04/24 14:05 Neut # (Auto) 6.38 10^3/uL (1.8-7.7) 10/04/24 14:05 Lymph # (Auto) 3.9 10^3/uL (0.8-4.8) 10/04/24 14:05 [place] # (Auto) 0.8 10^3/uL (0.2-0.9) 10/04/24 14:05 Eos # (Auto) 0.4 10^3/uL (0.0-0.8) 10/04/24 14:05 Baso # (Auto) 0.1 10^3/uL (0.0-0.1) 10/04/24 14:05 Nucleated RBC % (auto) 0 % 10/04/24 14:05 Nucleated RBCs # 0.0 /100WBC 10/04/24 14:05 Sodium 143 mmol/L (136-145) 10/04/24 14:05 Potassium 3.9 mmol/L (3.5-5.1) 10/04/24 14:05 Chloride 107 mmol/L (98-107) 10/04/24 14:05 Carbon Dioxide 25 mmol/L (22-29) 10/04/24 14:05 Anion Gap 14.9 (5-19) 10/04/24 14:05 BUN 16 mg/dL (8-23) 10/04/24 14:05 Creatinine 0.9 mg/dL (0.5-0.9) 10/04/24 14:05 GFR Calculation 63.9 mL/min (90-130) L 10/04/24 14:05 Glucose 137 mg/dL (65-115) H 10/04/24 14:05 Calculated Osmolality 299 mOsm/kg (285-295) H 10/04/24 14:05 Calcium 8.0 mg/dL (8.5-10.5) L 10/04/24 14:05 Total Bilirubin 0.2 mg/dL (0.15-1.2) 10/04/24 14:05 AST 8 U/L (0-32) 10/04/24 14:05 ALT 7 U/L (0-33) 10/04/24 14:05 Alkaline Phosphatase 103 U/L (35-105) 10/04/24 14:05 Total Protein 5.6 g/dL (6.6-8.7) L 10/04/24 14:05 Albumin 2.6 g/dL (3.5-5.2) L 10/04/24 14:05 Globulin 3.0 g/dL (1.3-4.6) 10/04/24 14:05 Urine Color Yellow (Yellow) 10/04/24 15:56 Urine Appearance Turbid (CLEAR) A 10/04/24 15:56 Urine pH 6.0 (5-7) 10/04/24 15:56 Ur Specific [place] 1.023 (1.005-1.030) 10/04/24 15:56 Urine Protein 4+ (Negative) A 10/04/24 15:56 Urine Glucose (UA) Negative (Normal) 10/04/24 15:56 Urine Ketones Negative (Negative) 10/04/24 15:56 Urine Blood 2+ (Negative) A 10/04/24 15:56 Urine Nitrate Negative (Negative) 10/04/24 15:56 Urine Bilirubin Negative (Negative) 10/04/24 15:56 Urine Urobilinogen 0.2 mg/dL (Negative) 10/04/24 15:56 Ur Leukocyte Esterase 1+ (Negative) A 10/04/24 15:56 Urine RBC >100 /hpf (0-2) H 10/04/24 15:56 Urine WBC >100 /hpf (0-5) H 10/04/24 15:56 Ur Squamous Epith Cells 11-20 /hpf (0-5) H 10/04/24 15:56 Amorphous Sediment Not Reportable 10/04/24 15:56 Urine Bacteria Exceeds /hpf (NONE) 10/04/24 15:56 Hyaline Casts 32.56 /lpf 10/04/24 15:56 All radiology interpretation(s) finalized by discharge EKG Data EKG 1: I personally reviewed and interpreted this EKG as follows: EKG interpretation date: 10/04/24 EKG interpretation time: 13:30 Interpretation: sinus tara hr [address] elevation qrs 103 qtc 483 Discharge Plan Discharge Patient Disposition: Home Clinical Impression: Near syncope, UTI (urinary tract infection) Condition: Stable Prescriptions: New cephalexin 500 mg capsule 500 mg PO TID 7 Days Qty: 21 0RF No Action (DME) Diabetic Shoes with 3 Pairs of Inserts See Rx Instructions .Route .MEDSUPPLY Qty: 1 0RF Rx Instructions: As directed by HOME (DME) Diabetic shoes with 3 sets of inserts See Rx Instructions .Route .MEDSUPPLY Qty: 1 0RF Rx Instructions: As directed by [facility] (DME) blood-glucose meter [facility] Rx Instructions .Route Qty: 1 0RF Rx Instructions: As directed tizanidine 2 mg tablet 2 mg PO BEDTIME@22 Qty: 30 2RF Xarelto 20 mg tablet 20 mg PO BEDTIME@22 Qty: 30 2RF (DME) pen needle, diabetic [Comfort EZ Pen [place]] 31 gauge x 5/16 needle See Rx Instructions .Route Qty: 1200 2RF Rx Instructions: As directed metoprolol tartrate 25 mg tablet 25 mg PO Q12H Qty: 60 2RF levocetirizine 5 mg tablet 5 mg PO BID Qty: 60 5RF gabapentin 300 mg capsule 300 mg PO BID@10,22 Qty: 60 2RF duloxetine 60 mg capsule,delayed release(DR/EC) 60 mg PO BID@10,22 Qty: 60 2RF dulaglutide 4.5 mg/0.5 mL pen injector 4.5 mg SUBCUT .weekly Qty: 2 2RF Rx Instructions: ON FRIDAY doxepin 25 mg capsule 25 mg PO BEDTIME@22 Qty: 30 2RF (DME) Blood Glucose Test Strip See Rx Instructions .Route Qty: 100 3RF Rx Instructions: once daily atorvastatin 40 mg tablet 40 mg PO BEDTIME@22 Qty: 30 5RF insulin glargine [Lantus Solostar U-100 Insulin] 100 unit/mL (3 mL) insulin pen 60 unit SUBCUT BEDTIME Qty: 15 2RF (DME) lancets Misc See Rx Instructions .Route Qty: 100 3RF Rx Instructions: once daily albuterol sulfate 90 mcg/actuation HFA aerosol inhaler 2 puff INHALATION QID PRN (Reason: Shortness Of Breath) Qty: 6.7 5RF losartan 25 mg tablet 25 mg PO DAILY Qty: 30 2RF Rx Instructions: Hold if blood pressure less than or equal to 120/80 cephalexin 500 mg capsule 500 mg PO TID Qty: 21 0RF (DME) 12 pairs of diabetic socks See Rx Instructions .Route .MEDSUPPLY Qty: 1 0RF Rx Instructions: As directed by [facility]NY[facility]Mariaelena ([facility] [place] Diabetic Shoes with 3 pairs of inserts- build up to the right See Rx Instructions .Route .MEDSUPPLY Qty: 1 0RF Rx Instructions: As directed by [facility]Mariaelena amiodarone [Pacerone] 200 mg tablet 200 mg PO DAILY Qty: 90 1RF ([facility] [place] blood-glucose meter [True Metrix Glucose Meter] [facility] Rx Instructions .Route Qty: 1 0RF Rx Instructions: As directed ([facility] [place]) True Metrix Glucose Test Strip Strip See Rx Instructions .Route Qty: 300 3RF Rx Instructions: TID (DME) lancets 31 gauge misc See Rx Instructions .Route Qty: 300 3RF Rx Instructions: As directed nicotine [Nicoderm CQ] 21 mg/24 hr patch 24 hour 1 patch transdermal DAILY Qty: 28 0RF nitroglycerin [Nitrostat] 0.4 mg Tablet, Sublingual 0.4 mg SUBLINGUAL Q5M PRN (Reason: Chest Pain) Rx Instructions: do not exceed 3 doses per episode ascorbate calcium (vitamin C) 500 mg Tablet 1,000 mg PO BEDTIME clobetasol 0.05 % ointment See Rx Instructions .ROUTE .COMPLEX Rx Instructions: APPLY TOPICALLY TO THE AFFECTED AREA OF BOTH HANDS NO MORE THAN TWO WEEKS PER MONTH. nystatin 100,000 unit/gram cream 1 applic topical BID PRN (Reason: Skin Irritation) amlodipine 10 mg tablet 5 mg PO DAILY Qty: 30 0RF Discharge Orders: Discharge ED (Routine); Ordered 10/04/24 Ordered By: Keshav Quintero Referrals: Cristina Canela FNP-C [Primary Care Provider, [facility]] - 4-7 days Discharge Diet: Advance as tolerated Discharge Activity: Resume usual activity Patient Instructions: Near Syncope (ED) Print Language: Lao Coding Level of Care Code ED Boomboat Operator for Briana Nj
[2024-10-04 14:18] LABS: Hematocrit 42.9 % (36-47); Hemoglobin 14.30 g/dL (11.27-16.99); Mean Corpuscular HGB Conc 33.3 g/dL (30-55); Mean Corpuscular Hemoglobin 29.5 pg (27-33); Mean Corpuscular Volume 88.6 fl (85-98); Nucleated Red Blood Cells % 0 %; Platelet Count 268 10^3/cmm (157-399); Red Blood Count 4.84 10^6/uL (3.85-5.65); White Blood Count 11.55 10^3/uL (3.29-11.43)
[2024-10-04 14:37] LABS: Alanine Aminotransferase 7 U/L (0-33); Albumin Level 2.6 g/dL (3.5-5.2); Alkaline Phosphatase 103 U/L (35-105); Anion Gap 14.9 (5-19); Aspartate Amino Transferase 8 U/L (0-32); Blood Urea Nitrogen 16 mg/dL (8-23); Calcium 8.0 mg/dL (8.5-10.5); Carbon Dioxide 25 mmol/L (22-29); Chloride 107 mmol/L (98-107); Creatinine Clr Calc Pharmacy 91.7156; Globulin 3.0 g/dL (1.3-4.6); Glucose 137 mg/dL (65-115); Osmolality Calculated 299 mOsm/kg (285-295); Potassium 3.9 mmol/L (3.5-5.1); Sodium 143 mmol/L (136-145); Total Protein 5.6 g/dL (6.6-8.7)
[2024-10-04 15:03] VITALS: BP 173/83; BP 190/84; BP 201/93; PULSE 59; PULSE 60; PULSE 61
[2024-10-04 16:09] VITALS: BP 195/97; PULSE 56; O2SAT 97
[2024-10-04 16:11] LABS: Glucose Urine UA Negative (Normal); Nitrate Urine Negative (Negative); Specific Gravity, Urine 1.023 (1.005-1.030)
[2024-10-04 16:14] LABS: Add Urine Microscopic? YES
[2024-10-04] MEDS: hyDRALAzine 20 mg/mL INJ 1 mL 10 MG IVP (16:33)
[2024-10-04 16:40] LABS: UA Slide Review UA Slide Review Perf
[2024-10-04 17:02] VITALS: BP 165/79; PULSE 62; O2SAT 97
== END 2024-10-04 17:09 | disposition home or self-care (01) ==
PROVIDERS: Emergency Provider Emergency Medicine; PCP Nurse Practitioner Family
DX: R55 Syncope and collapse (principal); N39.0 Urinary tract infection, site not specified; Z79.4 Long term (current) use of insulin; F17.210 Nicotine dependence, cigarettes, uncomplicated; J44.9 Chronic obstructive pulmonary disease, unspecified; E78.5 Hyperlipidemia, unspecified; I10 Essential (primary) hypertension; Z85.3 Personal history of malignant neoplasm of breast
CPT/HCPCS: 36415; 80053; 81001; 85025; 87077; 87086; 87186; 93005; 96374; 99284; J0360; J8597; J9999

== ENCOUNTER → 2024-10-12 09:55 | Outpatient (BNVA) | payer MEDICAID, SELFPAY | PROVIDERS: PCP Nurse Practitioner Family; Visit Provider Podiatrist Foot & Ankle Surgery | DX: E11.42 Type 2 diabetes mellitus with diabetic polyneuropathy (principal); L60.3 Nail dystrophy; L84 Corns and callosities; E11.65 Type 2 diabetes mellitus with hyperglycemia; Z79.4 Long term (current) use of insulin; E11.8 Type 2 diabetes mellitus with unspecified complications; M14.672 Charcot's joint, left ankle and foot; Z89.411 Acquired absence of right great toe; R60.0 Localized edema | CPT/HCPCS: 11056; 11721 ==

== ENCOUNTER → 2024-10-13 08:53 | Outpatient (BNVA) | payer MEDICAID, SELFPAY | PROVIDERS: PCP Nurse Practitioner Family; Referring Provider Nurse Practitioner Family; Visit Provider Psychiatry & Neurology Neurology | DX: R29.6 Repeated falls (principal); R42 Dizziness and giddiness; I63.9 Cerebral infarction, unspecified; M43.02 Spondylolysis, cervical region; M47.12 Other spondylosis with myelopathy, cervical region | CPT/HCPCS: 99203 ==

== ENCOUNTER → 2024-11-04 07:56 | Outpatient (BNVA) | payer MEDICAID, SELFPAY | PROVIDERS: PCP Nurse Practitioner Family; Visit Provider Internal Medicine | DX: E11.65 Type 2 diabetes mellitus with hyperglycemia (principal); Z79.4 Long term (current) use of insulin; E83.51 Hypocalcemia; E04.1 Nontoxic single thyroid nodule; E78.5 Hyperlipidemia, unspecified; R79.89 Other specified abnormal findings of blood chemistry | CPT/HCPCS: 99204 ==

== ENCOUNTER 2024-11-09 08:35 | Outpatient (CLI) | payer MEDICAID, SELFPAY ==
--- NOTE | 2024-11-09 08:38 | CT_ITS ---
WS: [id number] CTA NECK TECHNIQUE: Contrast enhanced CTA of the neck with coronal and sagittal reformatted images and maximum intensity projection (MIP) images. NASCET criteria utilized. CLINICAL INFORMATION: R42 - Dizziness and giddiness COMPARISON: None. DLP: 287.[address] scans at [facility] use at least one of these dose optimization techniques: automated exposure control; mA and/or kV adjustment per patient size (includes targeted exams where dose is matched to clinical indication); or iterative reconstruction. FINDINGS: RIGHT: No significant RIGHT ICA stenosis. RIGHT ICA is patent to the skull base. Retropharyngeal course to the RIGHT carotid. LEFT: Mild calcified atheromatous plaque LEFT carotid bulb. No significant LEFT ICA stenosis. LEFT ICA is patent to the skull base. Tortuous ICA at the skull base. LEFT dominant vertebral artery. Only a tiny hypoplastic RIGHT vertebral artery which ends in PICA. Proximal subclavian arteries are patent. Enlarged multinodular thyroid. This can be followed up with ultrasound. Advancement of lytic changes cervical spine. Disc osteophyte complex at C4-5 with moderate central canal stenosis. Chiari I malformation. CT/CT angio neck [id number] IMPRESSION: 1. No significant cervical ICA stenosis bilaterally. Mild atheromatous plaque LEFT carotid bulb. 2. LEFT dominant vertebral artery is patent to the basilar junction. Only a ti ny hypoplastic RIGHT vertebral artery. 3. Enlarged multinodular thyroid. This can be followed up with ultrasound.
[2024-11-09] MEDS: iohexol 350 mg/mL 500 mL Btl (per mL) IV (09:11)
== END 2024-11-09 08:36 | disposition home or self-care (01) ==
LOC: RAD 08:35
PROVIDERS: PCP Nurse Practitioner Family; Visit Provider Specialist
DX: I67.2 Cerebral atherosclerosis (principal); R29.6 Repeated falls; I63.9 Cerebral infarction, unspecified; I47.10 Supraventricular tachycardia, unspecified
CPT/HCPCS: 70498

== ENCOUNTER → 2024-11-25 12:44 | Outpatient (BNVA) | payer MEDICAID, SELFPAY | PROVIDERS: PCP Nurse Practitioner Family; Visit Provider Nurse Practitioner Family | DX: E11.65 Type 2 diabetes mellitus with hyperglycemia (principal); M54.50 Low back pain, unspecified; N39.0 Urinary tract infection, site not specified; Z79.4 Long term (current) use of insulin | CPT/HCPCS: 80053; 81003; 87086 ==

== ENCOUNTER 2024-11-29 10:50 | Outpatient (CLI) | payer MEDICAID, SELFPAY ==
--- NOTE | 2024-11-29 10:45 | USCV_ITS ---
[facility] Age: 59 Gender: F : 1965 Exam Date: 11/29/2024 11:08 Ordering Phys: Cristina Canela-Jason Technologist: TIO [place]am Location[place] [facility] [place] Indication: LE swelling HISTORY: Lower extremity swelling. PROCEDURES: Venous duplex imaging was performed in bilateral lower extremities. The following venous structures were evaluated: common femoral vein, profunda vein, proximal portion of the greater saphenous vein, superficial femoral vein, and the popliteal vein. In addition, the posterior tibial and peroneal trunk were evaluated. FINDINGS: Examination was technically limited due to body habitus. Normal 2-D Doppler and augmentation and compressibility throughout the lower extremity venous structures. Additional imaging through the proximal calf veins also reveals no thrombus. Limited evaluation of the greater saphenous vein is patent with no thrombus. CONCLUSIONS No evidence of right lower extremity DVT. No evidence of left lower extremity DVT. Joseph Watson MD (Electronically Signed) Final Date: 29 November 2024 15:32 S
== END 2024-11-29 10:51 | disposition home or self-care (01) ==
LOC: RAD 10:53
PROVIDERS: PCP Nurse Practitioner Family; Visit Provider Nurse Practitioner Family
DX: M79.89 Other specified soft tissue disorders (principal)
CPT/HCPCS: 93970

== ENCOUNTER → 2024-12-16 11:47 | Outpatient (BNVA) | payer MEDICAID, SELFPAY | PROVIDERS: PCP Nurse Practitioner Family; Visit Provider Podiatrist Foot & Ankle Surgery | DX: E11.42 Type 2 diabetes mellitus with diabetic polyneuropathy (principal); L60.3 Nail dystrophy; E11.8 Type 2 diabetes mellitus with unspecified complications; M79.89 Other specified soft tissue disorders; M14.672 Charcot's joint, left ankle and foot; Z89.411 Acquired absence of right great toe; R60.0 Localized edema; L84 Corns and callosities | CPT/HCPCS: 11721; 73630; 99213 ==

== ENCOUNTER 2024-12-20 08:51 | Outpatient (CLI) | payer MEDICAID, SELFPAY ==
--- NOTE | 2024-12-20 08:54 | MR_ITS ---
WS: [id number] MRI HEAD WITHOUT AND WITH CONTRAST with pituitary protocol TECHNIQUE: Sagittal T1, T2 axial, T2 axial FLAIR, axial susceptibility weighted imaging, axial diffusion weighted images, and coronal T2 images were obtained. Pre and post-T1 axial and post T1 coronal images. ADC and FSPGR images. Pituitary protocol utilized CLINICAL INFORMATION: ABNORMAL IMAGING COMPARISON: 08/03/2024 FINDINGS: Some images degraded by motion Somewhat prominent enhancing pituitary tissue for patient this age with mild suprasellar extension. No evidence of focal differential enhancement to indicate focal intrasellar mass. Recommend correlation with pituitary function studies. Slightly prominent thickening and enhancement along the pituitary infundibulum. Findings are nonspecific and may be incidental and normal for this patient but can be seen with lymphocytic hypophysitis, occult adenoma and possibly primary hypothyroidism with pituitary hyperplasia. New small focus of restricted diffusion along the anterior LEFT temporal lobe adjacent to the temporal horn. Mild small vessel changes. Small vessel changes in the keshav. Chiari I malformation. Mild crowding at the foramen magnum. No hydrocephalus. Tiny chronic lacunar infarcts in the cerebellum RIGHT greater than LEFT. MR/MR pituitary wo/w con* [id number] IMPRESSION: 1. Findings are nonspecific and may be incidental but can be seen with lymphoc ytic apophysitis, occult adenoma, and possibly primary hypothyroidism with pitu itary hyperplasia. Recommend correlation with pituitary and endocrine studies a nd endocrine consult. Recommend 6 to 12-month follow-up MRI pituitary to confir m stability 2. New small focus of restricted diffusion along the anterior LEFT temporal l obe suspicious for a small focus of ischemia measuring 6 mm. This is new from charito rogers.
[2024-12-20] MEDS: gadobenate dimeglumine 20 mL vial IV (13:04)
== END 2024-12-20 08:52 | disposition home or self-care (01) ==
LOC: RAD 08:52
PROVIDERS: PCP Nurse Practitioner Family; Visit Provider Specialist
DX: R93.0 Abnormal findings on diagnostic imaging of skull and head, not elsewhere classified (principal)
CPT/HCPCS: 70553

== ENCOUNTER → 2025-01-17 15:08 | Outpatient (BNVA) | payer MEDICAID, SELFPAY | PROVIDERS: PCP Nurse Practitioner Family; Visit Provider Nurse Practitioner Family | DX: M79.89 Other specified soft tissue disorders (principal); M25.562 Pain in left knee | CPT/HCPCS: 73562; 80053; 83880 ==

== ENCOUNTER 2025-01-24 22:19 | Emergency (ER) | payer MEDICAID, SELFPAY ==
[2025-01-24 22:19] VITALS: BP 189/108; PULSE 62; RESP 17; O2SAT 95; BMI 47.7
--- OUTSIDE RECORDS SUMMARY | 2025-01-24 22:27 | XMS_ITS | Encounter Summary ---
Author Organization [facility] Address [address] [place] [address] Care Team Providers Care Compress Trucker Name Role Phone Unavailable Primary Care Provider Unavailabl e Encounter Details Date Type Department Care Team (Latest Contact Info) Description 07/19/2004 Outpatient Historical [facility] [address] [place] [phone] Booker Friedman MD [address] [place] [address] JOINT PAIN-L/LEG (Primary Dx); DERANG POST MED MENISCUS; DISLOCAT PATELLA-CLOSED; LOC PRIM OSTEOART-L/LEG Social History Tobacco Use Types Packs/Day Years Used Date Smoking Tobacco: Never Assessed Comments Unknown Sex and Gender Information Value Date Recorded Sex Assigned at Not on file Legal Sex Female 3:27 AM FINANCE PROFESSIONAL Gender Identity Not on file Sexual Orientation Not on file documented as of this encounter Plan of Treatment Not on file documented as of this encounter Visit Diagnoses Diagnosis Pain in joint, lower leg- Primary Derangement of posterior horn of medial meniscus Closed dislocation of patella Primary localized osteoarthrosis, lower leg documented in this encounter
--- OUTSIDE RECORDS SUMMARY | 2025-01-24 22:27 | XMS_ITS | Encounter Summary ---
Author Organization [facility] Address [address] [place] [address] Care Team Providers Care Automatic Profile Sander Operator Name Role Phone Ángel Vance COTTON FARMWORKER Primary Care Provider [phone] Encounter Details Date Type Department Care Team (Late st Contact Info) Description 01/18/2025 External Device Data [facility] ABSTRACTION Provider, Abstract NO ADDRESS ON FILE Social History Tobacco Use Types Packs/Day Years Used Date Smoking Tobacco: Every Day Cigarettes Smokeless Tobacco: Never Alcohol Use Standard Drinks/Week Comments Not Currently 0 (1 standard drink = 0.6 oz pur e alcohol) Comments No Sex and Gender Information Value Date Recorded Sex Assigned at Not on file Legal Sex Female 12:59 AM ASSISTANT Gender Identity Not on file Sexual Orientation Not on file documented as of this encounter Plan of Treatment Not on file documented as of this encounter Visit Diagnoses Not on filedocumented in this encounter Care Teams Automatic Profile Sander Operator Relationship Specialty Start Date End Date Ángel Vance NP [address] [place] [phone] PCP - General NURSE PRACTITIONER 04/21/21 documented as of this encounter
--- OUTSIDE RECORDS SUMMARY | 2025-01-24 22:27 | XMS_ITS | Clinical Summary ---
Author Organization [facility] Address [address] 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
--- OUTSIDE RECORDS SUMMARY | 2025-01-24 22:27 | XMS_ITS | Encounter Summary ---
Author Organization [facility] [place] Address [address] [place] [address] Phone Care Team Providers Care Abstract Writer Name Role Phone Jose M Lin DO Primary Care Provider [phone] Encounter Details Date Type Department Care Team (Late st Contact Info) Description 10/31/2023 Orders Only [facility] [address] [place] [address] Urinary tract infection, not otherwise specified; Renal tubulo-interstitial disease, not otherwise specified Social History Tobacco Use Types Packs/Day Years Used Date Smoking Tobacco: Never Assessed Comments Unknown Sex and Gender Information Value Date Recorded Sex Assigned at Not on file Legal Sex Female 12:20 PM EDT Gender Identity Not on file Sexual Orientation Not on file documented as of this encounter Plan of Treatment Not on file documented as of this encounter Visit Diagnoses Diagnosis Urinary tract infection, not otherwise specified Renal tubulo-interstitial disease, not otherwise specified documented in this encounter Care Teams Abstract Writer Relationship Specialty Start Date End Date Jose M Lin DO [address] [place] [phone] PCP - General Family Medicine 10/31/23 documented as of this encounter
--- OUTSIDE RECORDS SUMMARY | 2025-01-24 22:27 | XMS_ITS | Encounter Summary ---
Author Organization [employer] Address [address] [place] [address] Care Team Providers Care Linux Support Engineer Name Role Phone Ángel Vance CONTRACTS PARALEGAL Primary Care Provider [phone] Encounter Details Date Type Department Care Team (Late st Contact Info) Description 01/19/2025 External Device Data [facility] ABSTRACTION Provider, Abstract [...] on file Legal Sex Female 12:59 AM SENIOR FIELD SERVICE ENGINEER Gender Identity Not on file Sexual Orientation Not on file documented as of this encounter Plan of Treatment Not on file documented as of this encounter Visit Diagnoses Not on filedocumented in this encounter Care Teams Linux Support Engineer Relationship Specialty Start Date End Date Ángel Vance NP [address] [place] [phone] PCP - General NURSE PRACTITIONER 04/21/21 documented as of this encounter
--- OUTSIDE RECORDS SUMMARY | 2025-01-24 22:27 | XMS_ITS | Clinical Summary ---
Author Organization Rosenda [facility] Address [address] [address] Phone Care Team Providers Care Director Product Name Role Phone Ángel Vance RN OCCUPATIONAL Primary Care Provider [phone] Allergies Active Allergy Reactions Criticality Noted Date [...] Encounters Date Type Department Care Team Description 01/19/2025 External Device Data ST[facility] ABSTRACTION Provider, Abstract 01/18/2025 External Device Data [facility] ABSTRACTION Provider, Abstract 12/28/2024 External Device Data [facility] ABSTRACTION Provider, Abstract 11/23/2024 External Device Data [facility] ABSTRACTION Provider, Abstract 11/23/2024 External Device Data [facility] ABSTRACTION Provider, Abstract 11/09/2024 External Device Data [facility] ABSTRACTION Provider, Abstract 11/02/2024 External Device Data [facility] ABSTRACTION Provider, Abstract 11/02/2024 External Device Data [facility] ABSTRACTION Provider, Abstract 10/27/2024 Telephone [facility] [address] [place] [phone] Edward Chapman AU.D appt (not taken mess wanting to see if she was coming to appt we have a cancel a 1pm we can move her into) from Last 3 Months Immunizations Immunization Administration [...] on file Legal Sex Female 12:59 AM FRAME CHANGER Gender Identity Not on file Sexual Orientation Not on file Last Filed Vital Signs Vital Sign Reading Time Taken Comments Blood Pressure 134/62 04/17/2022 12:15 PM FRAME CHANGER Pulse 75 04/17/2022 12:15 PM FRAME CHANGER Temperature 37.2 C (98.9 F) 04/17/2022 7:24 AM FRAME CHANGER Respiratory Rate 20 04/17/2022 12:15 PM FRAME CHANGER Oxygen Saturation 91% 04/17/2022 12:15 PM FRAME CHANGER Inhaled Oxygen Concentration - - Weight 110.2 kg (243 lb) 04/17/2022 7:24 AM FRAME CHANGER Height 170.2 cm (5' 7 ) 04/17/2022 7:24 AM FRAME CHANGER Body Mass Index 38.06 04/17/2022 7:24 AM FRAME CHANGER Plan of Treatment Health Maintenance Due Date [...] patient's age to complete this topic Insurance [address] [place] [address] MEDICAID [place] Care Teams Director Product Relationship Specialty Start Date End Date Ángel Vance NP [address] [place] [phone] PCP - General NURSE PRACTITIONER 04/21/21
--- OUTSIDE RECORDS SUMMARY | 2025-01-24 22:27 | XMS_ITS | Clinical Summary ---
Author Organization [facility] Facility Address [address] [place] [id number] Care Team Providers Care Belt Worker Name Role Phone Jose M Lin DO Primary Care Provider [phone] Allergies Active Allergy Reactions Criticality Noted Date Comments Azithromycin 04/21/2021 Other Reaction(s): Other (See Comments) Stomach cramping Latex High 12/16/2024 Other Reaction(s): ALGY-Rash Sulfa Antibiotics 04/21/2021 Other Reaction(s): Other (See Comments) Stomach cramping Trimethoprim GI intolerance 06/03/2024 Medications acetaminophen (TYLENOL) 500 MG tablet Take 1,000 mg by mouth in the morning and 1,000 mg in the evening. Active Ventolin HFA 108 (90 Base) MCG/ACT inhaler Inhale 2 puffs every 4 (four) hours if needed for shortness of breath or wheezing 03/11/20 24 Active amiodarone (PACERONE) 200 MG tablet Take 200 mg by mouth 1 (one) time each day 03/25/19 25 Active atorvastatin (LIPITOR) 40 MG tablet Take 40 mg by mouth 1 (one) time each day 04/23/19 25 Active doxepin (SINEquan) 25 MG capsule Take 10 mg by mouth every night 04/09/19 25 Active Trulicity 4.5 MG/0.5ML solution auto-injector Inject 4.5 mg under the skin per week 04/01/19 25 Active DULoxetine (CYMBALTA) [address] capsule Take 60 mg by mouth in the morning and 60 mg in the evening. Active furosemide (LASIX) 20 MG tablet Take 20 mg by mouth in the morning. Active gabapentin (NEURONTIN) 300 MG capsule Take 300 mg by mouth in the morning and 300 mg in the evening. 04/16/19 25 Active levocetirizine (XYZAL) 5 MG tablet Take 5 mg by mouth in the morning and 5 mg in the evening. 04/01/19 25 Active metoprolol tartrate 25 MG tablet Take 25 mg by mouth every 12 (twelve) hours 04/01/19 25 Active Xarelto 20 MG tablet Take 20 mg by mouth 1 (one) time each day with dinner Active tiZANidine (ZANAFLEX) 2 MG tablet Take 2 mg by mouth at night if needed 04/01/19 25 Active Lantus SoloStar 100 UNIT/ML injection Inject 30 Units under the skin every night 04/01/19 25 Active Bioflavonoid Products (GAIL C PO) Take 1,000 mg by mouth 1 (one) time each day Active amoxicillin (AMOXIL) 875 MG tablet Take 875 mg by mouth in the morning and 875 mg in the evening. 06/24/19 25 Active omeprazole (PriLOSEC) [address] capsule Take 20 mg by mouth 1 (one) time each day Do not crush or chew. Active hydroCHLOROthi azide 25 MG tablet Take 1 tablet (25 mg total) by mouth 1 (one) time each day 30 tablet 11 07/01/19 25 026 Active losartan (COZAAR) 25 MG tablet Take 25 mg by mouth 1 (one) time each day 11/25/19 25 Active nitroglycerin (NITROSTAT) 0.[address] 0.4 mg under the tongue every 5 (five) minutes if needed 06/19/19 22 Active nateglinide (STARLIX) 60 MG tablet Take 60 mg by mouth 11/30/19 25 Active lisinopril 40 MG tablet Take 40 mg by mouth 1 (one) time each day 06/24/19 25 025 Discontinued Active Problems No known active problems Encounters Date Type Department Care Team Description 12/28/2024 10:00 AM CDT Office Visit [facility], [address] [phone] Kathy Waters MD Chronic kidney disease stage 1 (Primary Dx); Hypertensive chronic kidney disease with stage 1 through stage 4 chronic kidney disease, or unspecified chronic kidney disease; Type 2 diabetes mellitus with diabetic chronic kidney disease, not otherwise specified (HCC) 12/28/2024 Documentation Only [facility] [address] [place] [address] Kayla Crews 12/28/2024 Documentation Only [facility] [address] [place] [address] Traci Meraz MA 12/23/2024 Telephone [facility], [facility] [address] [place] [address] Traci Meraz MA from Last 3 Months Family History Medical History Relation Comments Coronary artery disease Father Heart failure Father Hyperlipidemia Father Hypertension Father Kidney disease Father Lung disease Father Stroke Father Diabetes Mother Hypertension Mother Stroke Mother Relation Status Comments Father Mother Social History Tobacco Use Types Packs/Day Years Used Date Smoking Tobacco: Every Day Cigarettes Smokeless Tobacco: Never Tobacco Cessation:Ready to Q uit: Not Asked; Counseling Given: Not Answered Alcohol Use Standard Drinks/Week Comments Not Currently 0 (1 standard drink = 0.6 oz pur e alcohol) Comments Unknown Sex and Gender Information Value Date Recorded Sex Assigned at Not on file Legal Sex Female 12:20 PM EDT Gender Identity Not on file Sexual Orientation Not on file Last Filed Vital Signs Vital Sign Reading Time Taken Comments Blood Pressure 128/82 12/28/2024 10:08 AM CDT Pulse 64 12/28/2024 10:08 AM CDT Temperature - - Respiratory Rate - - Oxygen Saturation 96% 12/28/2024 10:08 AM CDT Inhaled Oxygen Concentration - - Weight 140 kg (309 lb) 12/28/2024 10:08 AM CDT p er patient Height 170.2 cm (5' 7 ) 12/28/2024 10:08 AM CDT Body Mass Index 48.4 12/28/2024 10:08 AM CDT Plan of Treatment Health Maintenance Due Date Last Done Comments Pneumococcal Vaccine: 50+ Ye ars (1 of 2 - PCV) 1983 Colorectal Cancer Screening: Annual FOBT 2013 Colorectal Cancer Screening: Colonoscopy 2013 Colorectal Cancer Screening: Sigmoidoscopy 2013 Diabetes: Hemoglobin A1C 06/30/2024 Diabetes: Ophthalmology Exam 06/30/2024 Diabetes: Pedal Pulse Checked 06/30/2024 Diabetes: Sensory Foot Exam 06/30/2024 Diabetes: Visual Foot Exam 06/30/2024 Influenza Vaccine (#1) 2024 Hepatitis B Vaccine Aged Out No longe r eligible based on patient's age to complete this topic Procedures Procedure Name Priority Date/Time Associated Diagnosis Comments URINALYSIS (EXT LAB ENTRY) Routine 11/25/2024 12:44 PM CDT COMPREHENSIVE METABOLIC PANEL (CMP) (EXTERNAL LAB ENTRY) Routine 11/25/2024 12:44 PM CDT URINE CULTURE Routine 11/25/2024 10:20 AM CDT from Last 3 Months Results * Comprehensive Metabolic Panel (CMP) (11/25/2024 12:44 PM CDT) Glucose 98 mg/dL BUN 13 mg/dL Creatinine 0.7 mg/dL Sodium 144 mEq/L Potassium 4.1 mEq/L Chloride 103 Carbon Dioxide 25 mmol/L Calcium 8.2 mg/dL Albumin (Blood) 2.8 g/dL AST (SGOT) 18 U/L ALT (SGPT) 21 U/L Alkaline Phosphatase 123 U/L Total Bilirubin 0.30 MG/DL eGFR 85.4 Total Protein, Serum 5.4 Anion Gap 20.1 Globulin, Total 2.6 g/dL Blood 11/25/2024 12:4 4 PM CDT us Kathy Waters MD LAB BLOOD ORDERABLES Final Re sult * Urinalysis (11/25/2024 12:44 PM CDT) Color, Urine yellow Clarity, Urine clear Urine Specific [place] 1.025 pH Urine 7 Leukocyte Esterase UA negative Nitrite, Urine negative Protein, Urine 300 Glucose, Urine 1+ Ketones, Urine negative Urobilinogen, Urine negative Bilirubin, Urine negative Blood, Urine 1+ WBC, Urine 0-5 RBC, Urine 21-50 Bacteria, Urine none seen Hyaline Casts, Urine 7.01 Urine 11/25/2024 12:4 4 PM CDT Traci Soto MA - 12/28/2024 9:06 AM CDT [employer] [facility] [address] [place] [id number] Brain Slaughter, Sandwich Board Carrier Kathy Waters MD LAB URINE ORDERABLES Final Re sult * Urine Culture (11/25/2024 10:20 AM CDT) Culture Result, Urine no growth Comment:see scanned image Urine Urine specimen obtained by clean catch procedure / Unknown 11/25/2024 10:20 AM CDT Traci Soto MA - 12/28/2024 9:10 AM CDT [facility] [address] [place] [id number] Brain Slaughter, Sandwich Board Carrier us Kathy Waters MD LAB URINE ORDERABLES Final Re sult from Last 3 Months Insurance Medicaid [place] ([id number]) Care Teams Belt Worker Relationship Specialty Start Date End Date Jose M Lin DO [address] [place] [address] PCP - General Family Medicine 10/31/23
--- NOTE | 2025-01-24 22:28 | XRR_ITS ---
PROCEDURE INFORMATION: Exam: XR Right Humerus Exam date and time: 01/24/2025 10:35 PM Age: 59 years old Clinical indication: Injury or trauma; Fall; Blunt trauma (contusions or hematomas); Arm, upper; Right; Additional info: Right upper arm injury post fall TECHNIQUE: Imaging protocol: Radiologic exam of the right humerus. Views: 2 or more views. COMPARISON: No relevant prior studies available. FINDINGS: Bones/joints: Normal. Soft tissues: Normal. XR/[place] [id number] IMPRESSION: No acute findings.
--- NOTE | 2025-01-24 22:49 | W.ED.EXTPRO ---
HPI - Extremity Problem General: Chief complaint: Extremity Injury, Upper Stated complaint: fall, right arm injury Time Seen by Provider: 01/24/25 22:25 History of Present Illness: 59yo F w/cc of fall, head injury, R shoulder pain. Patient states that she went into the fridge to get a snack when she lost her balance and fell on her right shoulder and hit her head on the floor. She did not lose consciousness. She does not have a headache. She reports shoulder pain. She does not have any neck pain, back pain. Fall was not preceded by chest pain, shortness of breath, palpitations or lightheadedness. Patient denies any motor or sensory deficits. Related Data Home Medications ?Medication ?Instructions ?Recorded ?Confirmed nitroglycerin 0.4 mg sublingual 0.4 mg sublingual Q5M PRN Chest 06/18/21 01/17/25 tablet (Nitrostat) Pain ascorbate calcium (vitamin C) 500 1,000 mg PO BEDTIME 12/09/22 01/17/25 mg tablet clobetasol 0.05 % topical ointment See Rx Instructions .Route .COMPLEX 11/04/23 01/17/25 nystatin 100,000 unit/gram topical 1 applic topical BID PRN Skin 11/04/23 01/17/25 cream Irritation acetaminophen 500 mg tablet 1,000 mg PO Q6H PRN 10/13/24 01/17/25 (Acetaminophen Extra Strength) Previous Rx's ?Medication ?Instructions ?Recorded Diabetic Shoes with 3 Pairs of #1 ea 02/25/22 Inserts Diabetic shoes with 3 sets of #1 ea 05/22/22 inserts 12 pairs of diabetic socks #1 ea 10/29/22 Diabetic Shoes with 3 pairs of #1 ea 11/26/22 inserts- build up to the right blood-glucose meter #1 ea 11/27/22 albuterol sulfate 90 mcg/actuation 2 puff inhalation QID PRN 05/25/24 aerosol inhaler Shortness Of Breath #6.7 grams lancets #100 ea 05/25/24 blood sugar diagnostic (True #300 ea 06/24/24 Metrix Glucose Test Strip) blood-glucose meter (True Metrix #1 ea 06/24/24 Glucose Meter) lancets 31 gauge #300 ea 06/24/24 albuterol sulfate 2.5 mg/3 mL 2.5 mg (3 mL) inhalation Q4H PRN 10/26/24 (0.083 %) solution for nebulization shortness of breath or wheezing #90 mL miscellaneous medical supply 1 ea miscellaneous .prn 52 weeks 10/26/24 #1 ea blood-glucose sensor (Dexcom G7 #9 ea 11/04/24 Sensor device) blood-glucose,knitting machine mechanic,cont #1 ea 11/04/24 (Dexcom G7 Managed Services Sales Consultant) amiodarone 200 mg tablet See Rx Instructions .Route 11/08/24 .COMPLEX #90 tabs prednisone 20 mg tablet 20 mg PO DAILY #5 tabs 11/17/24 losartan 25 mg tablet See Rx Instructions .Route 11/24/24 .COMPLEX #90 tabs nateglinide 60 mg tablet 60 mg PO TID #270 tabs 11/29/24 atorvastatin 40 mg tablet 40 mg PO BEDTIME@22 #30 tabs 12/02/24 blood sugar diagnostic (Blood #100 ea 12/02/24 Glucose Test strips) doxepin 25 mg capsule 25 mg PO BEDTIME@22 #30 caps 12/02/24 dulaglutide 4.5 mg/0.5 mL 4.5 mg (0.5 mL) SUBCUT .weekly #2 12/02/24 subcutaneous pen injector mL duloxetine 60 mg capsule,delayed 60 mg PO BID@, #60 caps 12/02/24 release gabapentin 300 mg capsule 300 mg PO BID@,22 #60 caps 12/02/24 insulin glargine 100 unit/mL (3 60 unit (0.6 mL) SUBCUT BEDTIME 12/02/24 mL) subcutaneous pen (Lantus #15 mL Solostar U-100 Insulin) levocetirizine 5 mg tablet 5 mg PO BID #60 tabs 12/02/24 metoprolol tartrate 25 mg tablet 25 mg PO Q12H #60 tabs 12/02/24 pen needle, diabetic 31 gauge x #1,200 ea 12/02/24/16 (Comfort EZ Pen [place]) rivaroxaban 20 mg tablet (Xarelto) 20 mg PO BEDTIME@22 #30 tabs 12/02/24 tizanidine 2 mg tablet 2 mg PO BEDTIME@22 #30 tabs 12/02/24 albuterol sulfate 90 mcg/actuation 2 puff inhalation Q6H PRN 12/14/24 aerosol inhaler (Ventolin HFA) shortness of breath or wheezing #6.7 grams prednisone 20 mg tablet 20 mg PO BID #10 tabs 12/14/24 furosemide 20 mg tablet (Lasix) 20 mg PO BID #60 tabs 01/24/25 Allergies Allergy/AdvReac Type Severity Reaction Status Date / Time latex Allergy Intermediate ALGY-Rash Verified 01/24/25 22:28 azithromycin (From Zithromax) Allergy Unknown ADR-Gastrointestinal Verified 01/24/25 22:28 Upset sulfamethoxazole (From Allergy Unknown ADR-Gastrointestinal Verified 01/24/25 22:28 Bactrim) Upset trimethoprim (From Bactrim) Allergy Unknown ADR-Gastrointestinal Verified 01/24/25 22:28 Upset PFSH ED PFSH: Medical History (Updated 01/25/25 @ 01:47 by Tiffanie Rivas MD) Osteoarthritis of spine Ulcer of foot, chronic Breast cancer, right Breast cancer, left breast Open wound of foot Right great toe Gastroesophageal reflux disease Diabetes mellitus with hyperglycemia, with long-term current use of insulin Atrial fibrillation COPD (chronic obstructive pulmonary disease) Dyslipidemia SVT (supraventricular tachycardia) Asthma Benign hypertension COPD exacerbation Surgical History History of amputation of great toe H/O esophagogastroduodenoscopy (10/19/21) H/O bilateral mastectomy Status post left breast lumpectomy Status post right breast lumpectomy History of appendectomy History of hysterectomy Family History Father CAD (coronary artery disease) Congestive heart failure (CHF) Hyperlipidemia Hypertension Lung disease Stroke Other Diabetes Denies family history of Clotting disorder Dementia Psychiatric illness Chronic kidney disease (CKD) Suicide Anesthesia complication Bleeding disorder Family history of premature coronary artery disease Cancer Social History Smoking and tobacco/nicotine status: never used tobacco/nicotine Second hand smoke exposure: Yes Alcohol intake: never Substance/Drug Use: never Adopted: No Caregiver/support person: No Lives independently: Yes Household members: family Housing: House Marital status: Single Number of children: 1 service: No Current occupational status: employed Current gender identity: Female Physical Exam Narrative: EXAM NARRATIVE: Vital signs were reviewed. Patient is alert and oriented. EOMI, PERRL. There is no evidence of abrasion, laceration, ecchymosis/hematoma to face, scalp. There is no hemotympanum bilaterally, no retroauricular ecchymosis or periorbital ecchymosis. Patient is breathing comfortably, no increased WOB or accessory muscle use. SpO2 is above 95% on RA. Patient has clear lungs b/l, no rhonchi, wheezing or crackles. No hypotension or tachycardia. Abdomen is soft, nondistended and nontender. Patient has pain with range of motion of the right shoulder, pain with palpation over the AC joint and shoulder joint. She is neurovascularly intact. Course Vital Signs: Vital signs: Vital Signs Temperature 97.6 F 01/24/25 23:54 Pulse Rate 60 01/25/25 02:00 Respiratory Rate 16 01/25/25 02:00 Blood Pressure 169/78 01/25/25 02:00 Pulse Oximetry 95 01/25/25 02:00 Oxygen Delivery Me thod Room Air 01/24/25 22:19 MDM - Extremity (Nontraumatic) Medical Decision Making 59-year-old female with a history of anticoagulation presents with a chief complaint of acute right shoulder pain and closed head injury after a fall from standing. Differential diagnosis includes, is limited to, closed head injury, ICH, injury to C, T or L-spine, fracture, dislocation, rotator cuff tear over shoulder. On exam, patient is alert, oriented and hemodynamically stable. She was evaluated with x-ray of her shoulder, CT of her head. She was treated with IV Dilaudid, p.o. Tylenol, p.o. Valium. CT head shows: CT head: IMPRESSION: No acute intracranial hemorrhage. No midline shift or mass effect. XR shoulder: IMPRESSION: No acute fracture or dislocation. Although there is no fracture or dislocation of the shoulder, patient may have suffered a rotator cuff injury. Patient was counseled to follow-up with her primary care physician for advanced imaging such as MRI. Patient was counseled on supportive care at home, given return precautions and discharged in stable condition with recommendation for outpatient follow-up with primary care nurse or doctor. Lab Data Radiology Impressions Humerus X-Ray 11/03/25 22:28 IMPRESSION: No acute findings. Head CT 01/24/25 22:55 IMPRESSION: No acute intracranial hemorrhage. No midline shift or mass effect. Shoulder X-Ray 01/25/25 01:10 IMPRESSION: No acute fracture or dislocation. All radiology interpretation(s) finalized by discharge Discharge Plan Discharge Patient Disposition: Home Clinical Impression: Chronic anticoagulation Fall Qualifiers: Encounter type: initial encounter Qualified Code(s): W19.XXXA - Unspecified fall, initial encounter Acute shoulder pain Qualifiers: Laterality: right Qualified Code(s): M25.511 - Pain in right shoulder Condition: Stable Prescriptions: No Action (DME) Diabetic Shoes with 3 Pairs of Inserts See Rx Instructions .Route .MEDSUPPLY Qty: 1 0RF Rx Instructions: As directed by HOME (DME) Diabetic shoes with 3 sets of inserts See Rx Instructions .Route .MEDSUPPLY Qty: 1 0RF Rx Instructions: As directed by [facility] (DME) blood-glucose meter Misc See Rx Instructions .Route Qty: 1 0RF Rx Instructions: As directed (DME) Dexcom G7 Managed Services Sales Consultant Misc See Rx Instructions .Route Qty: 1 0RF Rx Instructions: As directed (DME) Dexcom G7 Sensor Device See Rx Instructions .Route Qty: 9 1RF Rx Instructions: As directed albuterol sulfate 2.5 mg /3 mL (0.083 %) solution for nebulization 2.5 mg inhalation Q4H PRN (Reason: shortness of breath or wheezing) Qty: 90 0RF miscellaneous medical supply Kit 1 ea miscellaneous .prn 364 Days Qty: 1 0RF Rx Instructions: Nebulizer and kit nateglinide 60 mg tablet 60 mg PO TID Qty: 270 0RF Rx Instructions: give before meal(s) prednisone 20 mg tablet 20 mg PO BID Qty: 10 0RF albuterol sulfate [Ventolin HFA] 90 mcg/actuation HFA aerosol inhaler 2 puff inhalation Q6H PRN (Reason: shortness of breath or wheezing) Qty: 6.7 2RF furosemide [Lasix] 20 mg tablet 20 mg PO BID Qty: 60 1RF (DME) lancets Misc See Rx Instructions .Route Qty: 100 3RF Rx Instructions: once daily albuterol sulfate 90 mcg/actuation HFA aerosol inhaler 2 puff INHALATION QID PRN (Reason: Shortness Of Breath) Qty: 6.7 5RF prednisone 20 mg tablet 20 mg PO DAILY Qty: 5 0RF acetaminophen [Acetaminophen Extra Strength] 500 mg tablet 1,000 mg PO Q6H PRN (DME) 12 pairs of diabetic socks See Rx Instructions .Route .MEDSUPPLY Qty: 1 0RF Rx Instructions: As directed by [facility] [place] Diabetic Shoes with 3 pairs of inserts- build up to the right See Rx Instructions .Route .MEDSUPPLY Qty: 1 0RF Rx Instructions: As directed by [facility] ([facility] blood-glucose meter [True Metrix Glucose Meter] Misc See Rx Instructions .Route Qty: 1 0RF Rx Instructions: As directed [place] True Metrix Glucose Test Strip Strip See Rx Instructions .Route Qty: 300 3RF Rx Instructions: TID ([facility] lancets 31 gauge misc See Rx Instructions .Route Qty: 300 3RF Rx Instructions: As directed amiodarone 200 mg tablet See Rx Instructions .ROUTE .COMPLEX Qty: 90 3RF Dose Instruction: TAKE ONE TABLET BY MOUTH DAILY Rx Instructions: TAKE ONE TABLET BY MOUTH DAILY losartan 25 mg tablet See Rx Instructions .ROUTE .COMPLEX Qty: 90 2RF Dose Instruction: TAKE ONE TABLET BY MOUTH DAILY; HOLD IF BLOOD PRESSURE IS LESS THAN OR EQUAL TO 120/80 Rx Instructions: TAKE ONE TABLET BY MOUTH DAILY; HOLD IF BLOOD PRESSURE IS LESS THAN OR EQUAL TO 120/80 tizanidine 2 mg tablet 2 mg PO BEDTIME@22 Qty: 30 2RF Xarelto 20 mg tablet 20 mg PO BEDTIME@22 Qty: 30 2RF ([facility] pen needle, diabetic [Comfort EZ Pen [place]] 31 gauge x 5/16 needle See Rx Instructions .Route Qty: 1200 2RF Rx Instructions: As directed metoprolol tartrate 25 mg tablet 25 mg PO Q12H Qty: 60 2RF levocetirizine 5 mg tablet 5 mg PO BID Qty: 60 5RF gabapentin 300 mg capsule 300 mg PO BID@10,22 Qty: 60 2RF duloxetine 60 mg capsule,delayed release(DR/EC) 60 mg PO BID@10,22 Qty: 60 2RF dulaglutide 4.5 mg/0.5 mL pen injector 4.5 mg SUBCUT .weekly Qty: 2 2RF Rx Instructions: ON FRIDAY doxepin 25 mg capsule 25 mg PO BEDTIME@22 Qty: 30 2RF (DME) Blood Glucose Test Strip See Rx Instructions .Route Qty: 100 3RF Rx Instructions: once daily atorvastatin 40 mg tablet 40 mg PO BEDTIME@22 Qty: 30 5RF insulin glargine [Lantus Solostar U-100 Insulin] 100 unit/mL (3 mL) insulin pen 60 unit SUBCUT BEDTIME Qty: 15 2RF nitroglycerin [Nitrostat] 0.4 mg Tablet, Sublingual 0.4 mg SUBLINGUAL Q5M PRN (Reason: Chest Pain) Rx Instructions: do not exceed 3 doses per episode ascorbate calcium (vitamin C) 500 mg Tablet 1,000 mg PO BEDTIME clobetasol 0.05 % ointment See Rx Instructions .ROUTE .COMPLEX Rx Instructions: APPLY TOPICALLY TO THE AFFECTED AREA OF BOTH HANDS NO MORE THAN TWO WEEKS PER MONTH. nystatin 100,000 unit/gram cream 1 applic topical BID PRN (Reason: Skin Irritation) Discharge Orders: Discharge ED (Routine); Ordered 01/25/25 Ordered By: Tiffanie Rivas Referrals: Cristina Canela FNP-C [Primary Care Provider, Family Practice] Patient Instructions: Shoulder Pain (ED), Opioid Safety, Pain Management, Patient Portal & Jose Instructions, Fall Prevention Activity Restrictions/Additional Instructions: Please continue to monitor your condition closely at home. Take Tylenol 500-1000mg every six hours for pain and inflammation. Take Robaxin for muscle pain/spasm but do not take within six hours of taking tizanidine, which is also a muscle relaxer. Lidocaine patches may also be helpful. Wear sling for comfort. If your condition worsens or additional concerns arise, please return promptly to the emergency department for reassessment. Follow up with your primary care doctor in one week. Talk to your primary care doctor or nurse about outpatient MRI to evaluate your shoulder for rotator cuff injuries. If you continue to have pain, talk to your doctor about referral to physical therapy. Print Language: Slovenian Coding Level of Care Code ED Passenger Rate Clerk for Briana Nj
--- NOTE | 2025-01-24 22:55 | CTR_ITS ---
PROCEDURE INFORMATION: Exam: CT Head Without Contrast Exam date and time: 01/24/2025 11:07 PM Age: 59 years old Clinical indication: Injury or trauma; Fall; Blunt trauma (contusions or hematomas); Additional info: Head injury on anticoagulation TECHNIQUE: Imaging protocol: Computed tomography of the head without contrast. Radiation optimization: All CT scans at this facility use at least one of these dose optimization techniques: automated exposure control; mA and/or kV adjustment per patient size (includes targeted exams where dose is matched to clinical indication); or iterative reconstruction. COMPARISON: CT head wo con* [id number] 06/10/2024 5:14 PM RADIATION DOSE METRICS: Total DLP (mGy-cm): 1381.98 FINDINGS: Brain: No acute intracranial hemorrhage. No midline shift or mass effect. No acute territorial infarct. Cerebral ventricles: The ventricles and sulci are commensurate with age. Paranasal sinuses: Visualized sinuses are unremarkable. No fluid levels. Mastoid air cells: Visualized mastoid air cells are well aerated. Bones: Unremarkable. No acute fracture. Soft tissues: Unremarkable. CT/CT head wo con* [id number] IMPRESSION: No acute intracranial hemorrhage. No midline shift or mass effect.
[2025-01-24] MEDS: HYDROmorphone 0.5 MG/0.5 ML INJ 1 MG IVP (23:19)
[2025-01-24] MEDS: ondansetron 2 mg/ML SDV 2 mL 4 MG IVP (23:19)
[2025-01-24 23:54] VITALS: BP 164/79; PULSE 45; RESP 16; TEMP 36.4; O2SAT 97
--- NOTE | 2025-01-25 01:10 | XRR_ITS ---
PROCEDURE INFORMATION: Exam: XR Right Shoulder Exam date and time: 01/25/2025 1:16 AM Age: 59 years old Clinical indication: Injury or trauma; Fall; Blunt trauma (contusions or hematomas); Shoulder; Right; Additional info: Shoulder pain, please include y view TECHNIQUE: Imaging protocol: Radiologic exam of the right shoulder. Views: 2 or more views. COMPARISON: CR (UP EX, ) 01/24/2025 10:35 PM FINDINGS: Bones/joints: No acute fracture or dislocation. Diffuse osseous demineralization. Soft tissues: Right axilla surgical clips. XR/XR shoulder RT min 2V* [id number] IMPRESSION: No acute fracture or dislocation.
[2025-01-25 01:40] VITALS: BP 169/78; PULSE 51; RESP 18; O2SAT 96
[2025-01-25 02:00] VITALS: BP 169/78; PULSE 60; RESP 16; O2SAT 95
== END 2025-01-25 02:02 | disposition home or self-care (01) ==
PROVIDERS: Emergency Provider Emergency Medicine; PCP Nurse Practitioner Family
DX: M25.511 Pain in right shoulder (principal); Z79.01 Long term (current) use of anticoagulants; Z79.4 Long term (current) use of insulin; J44.9 Chronic obstructive pulmonary disease, unspecified; E78.5 Hyperlipidemia, unspecified; Z85.3 Personal history of malignant neoplasm of breast; I10 Essential (primary) hypertension
CPT/HCPCS: 36415; 70450; 73030; 73060; 80053; 80061; 82043; 82310; 83036; 83970; 84439; 84443; 87077; 87086; 87184; 96374; 96375; 99285; J1171; J2405; J9999

== ENCOUNTER 2025-01-25 16:17 | Inpatient (IN) | payer MEDICAID, SELFPAY ==
[2025-01-25] VITALS (7 sets, daily range): BP systolic 175–222; BP diastolic 79–103; PULSE 53–64; RESP 15–16; TEMP 36.6–36.7; O2SAT 88–95; BMI 47.6
--- NOTE | 2025-01-25 16:19 | XRR_ITS ---
PROCEDURE INFORMATION: Exam: XR Chest Exam date and time: 01/25/2025 04:51 PM Age: 59 years old Clinical indication: Other: Edema; Prior surgery; Surgery date: 6+ months; Surgery type: Dl mast TECHNIQUE: Imaging protocol: Radiologic exam of the chest. Views: 1 view. COMPARISON: CR XR chest 1V portable [id number] 07/27/2024 03:06 PM FINDINGS: Lungs: Low lung volumes with central bronchovascular crowding. Patchy bibasilar atelectasis versus edema. Pleural spaces: Unremarkable. No pleural effusion. No pneumothorax. Heart/Mediastinum: Prominent cardiac silhouette. Bones/joints: Unremarkable. XR/XR chest 1V portable [id number] IMPRESSION: 1. Low lung volumes with central bronchovascular crowding. 2. Patchy bibasilar atelectasis versus edema.
--- OUTSIDE RECORDS SUMMARY | 2025-01-25 16:21 | XMS_ITS | Encounter Summary ---
Author Organization [employer] Address [address] [place] [address] Care Team Providers Care Rock Wool Insulator Name Role Phone Ángel Vance FARMWORKER MACHINE Primary Care Provider [phone] Encounter Details Date Type Department Care Team [...] on file Legal Sex Female 12:59 AM CUTTER ALUMINUM SHEET Gender Identity Not on file Sexual Orientation Not on file documented as of this encounter Plan of Treatment Not on file documented as of this encounter Visit Diagnoses Not on filedocumented in this encounter Care Teams Rock Wool Insulator Relationship Specialty Start Date End Date Ángel Vance NP [address] [place] [phone] PCP - General NURSE PRACTITIONER 04/21/21 documented as of this encounter
--- OUTSIDE RECORDS SUMMARY | 2025-01-25 16:21 | XMS_ITS | Clinical Summary ---
Author Organization [facility] Address [address] Alves: Epic Prelude ADT JASWINDER KRAUS [address] Care Team Providers Care Felt Cementer Name Role Phone Unavailable Primary Care Provider Unavailabl e Immunizations Immunization Administration Dates Next Due Hepatitis A Vaccine 10/30/1999 Social History Tobacco Use Types Packs/Day Years Used Date Smoking Tobacco: Never Assessed Comments Unknown Sex and Gender Information Value Date Recorded Sex Assigned at Not on file Legal Sex Female 3:27 AM SALES ESTIMATOR Gender Identity Not on file Sexual Orientation [...]
--- OUTSIDE RECORDS SUMMARY | 2025-01-25 16:21 | XMS_ITS | Clinical Summary ---
Author Organization [facility] Facility Address [address] [place] [address] Care Team Providers Care Chipper Name Role Phone Jose M Lin DO Primary Care Provider [phone] Allergies Active Allergy Reactions Criticality Noted Date [...] Description 12/28/2024 10:00 AM CDT Office Visit [facility], [address] [phone] Kathy Waters MD Chronic kidney disease stage 1 (Primary Dx); Hypertensive chronic kidney disease with stage 1 through stage 4 chronic kidney disease, or unspecified chronic kidney disease; Type 2 diabetes mellitus with diabetic chronic kidney disease, not otherwise specified (HCC) 12/28/2024 Documentation Only [facility] [address] [place] [address] Kayla Crews 12/28/2024 Documentation Only [facility] [address] [place] [address] Traci Meraz MA 12/23/2024 Telephone [facility], [facility] [address] [place] [address] Traci Meraz MA from Last [...] Urine yellow Clarity, Urine clear Urine Specific Cunningham 1.025 pH Urine 7 Leukocyte Esterase UA negative Nitrite, Urine negative Protein, Urine 300 Glucose, Urine 1+ Ketones, Urine negative Urobilinogen, Urine negative Bilirubin, Urine negative Blood, Urine 1+ WBC, Urine 0-5 RBC, Urine 21-50 Bacteria, Urine none seen Hyaline Casts, Urine 7.01 Urine 11/25/2024 12:4 4 PM CDT Traci Soto MA - 12/28/2024 9:06 AM CDT [facility] [address] [place] [address] Brain Slaughter, Operations Dispatcher Kathy Waters MD LAB URINE ORDERABLES Final Re sult * Urine Culture (11/25/2024 10:20 AM CDT) Culture Result, Urine no growth Comment:see scanned image Urine Urine specimen obtained by clean catch procedure / Unknown 11/25/2024 10:20 AM CDT Traci Soto MA - 12/28/2024 9:10 AM CDT [facility] [address] [place] [address] Brain Slaughter, Operations Dispatcher us Kathy Waters MD LAB URINE ORDERABLES Final Re sult from Last 3 Months Insurance Medicaid [place] ([id number]) Care Teams Chipper Relationship Specialty Start Date End Date Jose M Lin DO [address] [place] [address] PCP - General Family Medicine 10/31/23
--- OUTSIDE RECORDS SUMMARY | 2025-01-25 16:21 | XMS_ITS | Encounter Summary ---
Author Organization [facility] Address [address] [place] [address] Care Team Providers Care Director Of Engineering Name Role Phone Unavailable Primary Care Provider Unavailabl e Encounter Details Date Type Department Care Team (Latest Contact Info) Description 07/19/[address] [facility] [address] [place] [phone] Booker Friedman MD [address] [place] [address] JOINT PAIN-L/LEG (Primary Dx); DERANG POST MED MENISCUS; DISLOCAT PATELLA-CLOSED; LOC PRIM OSTEOART-L/LEG Social History Tobacco Use Types Packs/Day Years Used Date Smoking Tobacco: Never Assessed Comments Unknown Sex and Gender Information Value Date Recorded Sex Assigned at Not on file Legal Sex Female 3:27 AM TIMBER FRAMER HELPER Gender Identity Not on file Sexual Orientation Not on file documented as of this encounter Plan of Treatment Not on file documented as of this encounter Visit Diagnoses Diagnosis Pain in joint, lower leg- Primary Derangement of posterior horn of medial meniscus Closed dislocation of patella Primary localized osteoarthrosis, lower leg documented in this encounter
--- OUTSIDE RECORDS SUMMARY | 2025-01-25 16:21 | XMS_ITS | Clinical Summary ---
Author Organization [facility] Address [address] [address] Phone Care Team Providers Care Caterpillar Mechanic Name Role Phone Ángel Vance DIRECTOR OF BILLING Primary Care Provider [phone] Allergies Active Allergy Reactions Criticality Noted Date [...] Data STL ABSTRACTION Provider, Abstract 10/27/2024 Telephone [facility] [address] [place] [phone] Edward Chapman AU.D appt (not taken mess [...] on file Legal Sex Female 12:59 AM TELETRAY OPERATOR Gender Identity Not on file Sexual Orientation Not on file Last Filed Vital Signs Vital Sign Reading Time Taken Comments Blood Pressure 134/62 04/17/2022 12:15 PM TELETRAY OPERATOR Pulse 75 04/17/2022 12:15 PM TELETRAY OPERATOR Temperature 37.2 C (98.9 F) 04/17/2022 7:24 AM TELETRAY OPERATOR Respiratory Rate 20 04/17/2022 12:15 PM TELETRAY OPERATOR Oxygen Saturation 91% 04/17/2022 12:15 PM TELETRAY OPERATOR Inhaled Oxygen Concentration - - Weight 110.2 kg (243 lb) 04/17/2022 7:24 AM TELETRAY OPERATOR Height 170.2 cm (5' 7 ) 04/17/2022 7:24 AM TELETRAY OPERATOR Body Mass Index 38.06 04/17/2022 7:24 AM TELETRAY OPERATOR Plan of Treatment Health Maintenance Due Date [...] to complete this topic Insurance [address] [place] [address] [place] Care Teams Caterpillar Mechanic Relationship Specialty Start Date End Date Ángel Vance NP [address] [place] [phone] PCP - General NURSE PRACTITIONER 04/21/21
--- OUTSIDE RECORDS SUMMARY | 2025-01-25 16:21 | XMS_ITS | Encounter Summary ---
Author Organization [employer] Address [address] [place] [address] Care Team Providers Care Vehicle Care Specialist Name Role Phone Ángel Vance ELECTRICAL ACCESSORIES II ASSEMBLER Primary Care Provider [phone] Encounter Details Date Type Department Care Team [...] on file Legal Sex Female 12:59 AM GRAPHIC MANAGER Gender Identity Not on file Sexual Orientation Not on file documented as of this encounter Plan of Treatment Not on file documented as of this encounter Visit Diagnoses Not on filedocumented in this encounter Care Teams Vehicle Care Specialist Relationship Specialty Start Date End Date Ángel Vance NP [address] [place] [phone] PCP - General NURSE PRACTITIONER 04/21/21 documented as of this encounter
--- OUTSIDE RECORDS SUMMARY | 2025-01-25 16:21 | XMS_ITS | Encounter Summary ---
Author Organization [facility] Address [address] [place] [address] Phone Care Team Providers Care Seed Laboratory Technician Name Role Phone Jose M Lin DO Primary Care Provider Encounter Details Date Type Department Care Team (Late st Contact Info) Description 10/31/2023 Orders Only [facility] [address] [place] [address] Urinary tract infection, not otherwise [...] specified documented in this encounter Care Teams Seed Laboratory Technician Relationship Specialty Start Date End Date Jose M Lin DO [address] [place] [phone] PCP - General Family Medicine 10/31/23 documented as of this encounter
--- NOTE | 2025-01-25 16:29 | ECG_ITS ---
Compliance [employer] Wide [employer] Test Date: 2025-01-25 Pat Name: Soni Head Department: Room: Gender: Female Branch Lead: : 1965 Requested By: Piedad Palacios Order Number: [id number] Eric MD: Theodora Valladares M.D. Measurements Intervals [place] Rate: 53 P: 0 IL: 183 QRS: -11 QRSD: 110 T: 49 QT: 509 QTc: 478 Interpretive Statements SINUS BRADYCARDIA POSSIBLE ANTERIOR MYOCARDIAL INFARCTION , PROBABLY OLD [30 ms Q WAVE IN V3/V4, OR R < 0.2 mV IN V4] Compared to ECG 10/04/2024 13:30:01 Myocardial infarct finding now present First degree AV block no longer present Prolonged QT interval no longer present Electronically Signed On 01-25-2025 21:51:13 INTELLIGENCE CHIEF by Theodora Valladares M.D. [email or web address]
--- NOTE | 2025-01-25 16:41 | W.ED.SOB ---
HPI - SOB/Dyspnea General: Chief Complaint: Shortness of Breath/Dyspnea Stated Complaint: SOB falls and fuild build up Time Seen by Provider: 01/25/25 16:41 History of Present Illness: HPI Narrative: 59-year-old female with history of diabetes, obesity, atrial fibrillation, chronic anticoagulation on Xarelto, SVT, COPD who presents emergency room from cardiology clinic with concerns for swelling and shortness of breath. No documented congestive heart failure in the past. She is on Lasix and that have been increased from 20 daily to 20 twice daily. She states she has had pitting edema. Mild orthopnea with exertional dyspnea. No fevers. No cough. No altered mental status. Related Data Home Medications ?Medication ?Instructions ?Recorded ?Confirmed nitroglycerin 0.4 mg sublingual 0.4 mg sublingual Q5M PRN Chest 06/18/21 01/25/25 tablet (Nitrostat) Pain ascorbate calcium (vitamin C) 500 1,000 mg PO BEDTIME 12/09/22 01/25/25 mg tablet clobetasol 0.05 % topical ointment See Rx Instructions .Route .COMPLEX 11/04/23 01/25/25 nystatin 100,000 unit/gram topical 1 applic topical BID PRN Skin 11/04/23 01/25/25 cream Irritation acetaminophen 500 mg tablet 1,000 mg PO Q6H PRN 10/13/24 01/25/25 (Acetaminophen Extra Strength) Previous Rx's ?Medication ?Instructions ?Recorded Diabetic Shoes with 3 Pairs of #1 ea 02/25/22 Inserts Diabetic shoes with 3 sets of #1 ea 05/22/22 inserts 12 pairs of diabetic socks #1 ea 10/29/22 Diabetic Shoes with 3 pairs of #1 ea 11/26/22 inserts- build up to the right blood-glucose meter #1 ea 11/27/22 albuterol sulfate 90 mcg/actuation 2 puff inhalation QID PRN 05/25/24 aerosol inhaler Shortness Of Breath #6.7 grams lancets #100 ea 05/25/24 blood sugar diagnostic (True #300 ea 06/24/24 Metrix Glucose Test Strip) blood-glucose meter (True Metrix #1 ea 06/24/24 Glucose Meter) lancets 31 gauge #300 ea 06/24/24 albuterol sulfate 2.5 mg/3 mL 2.5 mg (3 mL) inhalation Q4H PRN 10/26/24 (0.083 %) solution for nebulization shortness of breath or wheezing #90 mL miscellaneous medical supply 1 ea miscellaneous .prn 52 weeks 10/26/24 #1 ea blood-glucose sensor (Dexcom G7 #9 ea 11/04/24 Sensor device) blood-glucose,economics instructor,cont #1 ea 11/04/24 (Dexcom G7 Physical Chemistry Teacher) amiodarone 200 mg tablet See Rx Instructions .Route 11/08/24 .COMPLEX #90 tabs losartan 25 mg tablet See Rx Instructions .Route 11/24/24 .COMPLEX #90 tabs nateglinide 60 mg tablet 60 mg PO TID #270 tabs 11/29/24 atorvastatin 40 mg tablet 40 mg PO BEDTIME@22 #30 tabs 12/02/24 blood sugar diagnostic (Blood #100 ea 12/02/24 Glucose Test strips) doxepin 25 mg capsule 25 mg PO BEDTIME@22 #30 caps 12/02/24 dulaglutide 4.5 mg/0.5 mL 4.5 mg (0.5 mL) SUBCUT .weekly #2 12/02/24 subcutaneous pen injector mL duloxetine 60 mg capsule,delayed 60 mg PO BID@,22 #60 caps 12/02/24 release gabapentin 300 mg capsule 300 mg PO BID@10,22 #60 caps 12/02/24 insulin glargine 100 unit/mL (3 60 unit (0.6 mL) SUBCUT BEDTIME 12/02/24 mL) subcutaneous pen (Lantus #15 mL Solostar U-100 Insulin) levocetirizine 5 mg tablet 5 mg PO BID #60 tabs 12/02/24 metoprolol tartrate 25 mg tablet 25 mg PO Q12H #60 tabs 12/02/24 pen needle, diabetic 31 gauge x #1,200 ea 12/02/24 5/16 (Comfort EZ Pen [place]) rivaroxaban 20 mg tablet (Xarelto) 20 mg PO BEDTIME@22 #30 tabs 12/02/24 tizanidine 2 mg tablet 2 mg PO BEDTIME@22 #30 tabs 12/02/24 albuterol sulfate 90 mcg/actuation 2 puff inhalation Q6H PRN 12/14/24 aerosol inhaler (Ventolin HFA) shortness of breath or wheezing #6.7 grams furosemide 20 mg tablet (Lasix) 20 mg PO BID #60 tabs 01/24/25 methocarbamol 750 mg tablet 750 mg PO Q6H PRN spasms #20 tabs 01/25/25 nitrofurantoin 100 mg PO Q12H 7 days #14 caps 01/25/25 monohydrate/macrocrystals 100 mg capsule (Macrobid) Allergies Allergy/AdvReac Type Severity Reaction Status Date / Time latex Allergy Intermediate ALGY-Rash Verified 01/25/25 16:35 azithromycin (From Zithromax) Allergy Unknown ADR-Gastrointestinal Verified 01/25/25 16:35 Upset sulfamethoxazole (From Allergy Unknown ADR-Gastrointestinal Verified 01/25/25 16:35 Bactrim) Upset trimethoprim (From Bactrim) Allergy Unknown ADR-Gastrointestinal Verified 01/25/25 16:35 Upset Review of Systems Narrative: Constitutional symptoms: Negative except as documented in HPI. Skin symptoms: Negative except as documented in HPI. Eye symptoms: Negative except as documented in HPI. ENMT symptoms: Negative except as documented in HPI. Respiratory symptoms: Negative except as documented in HPI. Cardiovascular symptoms: Negative except as documented in HPI. Gastrointestinal symptoms: Negative except as documented in HPI. Genitourinary symptoms: Negative except as documented in HPI. Musculoskeletal symptoms: Negative except as documented in HPI. Neurologic symptoms: Negative except as documented in HPI. Psychiatric symptoms: Negative except as documented in HPI. Endocrine symptoms: Negative except as documented in HPI. PFS ED PFSH: Medical History (Updated 01/25/25 @ 20:57 by Piedad Browning MD) Osteoarthritis of spine Ulcer of foot, chronic Breast cancer, right Breast cancer, left breast Open wound of foot Right great toe Gastroesophageal reflux disease Diabetes mellitus with hyperglycemia, with long-term current use of insulin Atrial fibrillation COPD (chronic obstructive pulmonary disease) Dyslipidemia SVT (supraventricular tachycardia) Asthma Benign hypertension COPD exacerbation Surgical History History of amputation of great toe H/O esophagogastroduodenoscopy (10/19/21) H/O bilateral mastectomy Status post left breast lumpectomy Status post right breast lumpectomy History of appendectomy History of hysterectomy Family History Father CAD (coronary artery disease) Congestive heart failure (CHF) Hyperlipidemia Hypertension Lung disease Stroke Other Diabetes Denies family history of Clotting disorder Dementia Psychiatric illness Chronic kidney disease (CKD) Suicide Anesthesia complication Bleeding disorder Family history of premature coronary artery disease Cancer Social History Smoking and tobacco/nicotine status: never used tobacco/nicotine Second hand smoke exposure: Yes Alcohol intake: never Substance/Drug Use: never Adopted: No Caregiver/support person: No Lives independently: Yes Household members: family Housing: House Marital status: Single Number of children: 1 service: No Current occupational status: employed Current gender identity: Female Physical Exam Narrative: EXAM NARRATIVE: General: Alert, no acute distress. Skin: Warm, dry. Head: Normocephalic, atraumatic. Neck: Supple, trachea midline. Eye: Extraocular movements are intact. Ears, nose, mouth and throat: mucosa moist. Cardiovascular: Regular, Normal peripheral perfusion. 3+ pitting edema to the thighs Respiratory: Coarse breath sounds. Mild increased work of breathing Gastrointestinal: Soft, Nontender, Non distended Musculoskeletal: Normal ROM, no deformity. Neurological: Alert and oriented, No focal neurological deficit observed. Psychiatric: Cooperative, appropriate mood & affect. Course Vital Signs: Vital signs: Vital Signs Temperature 98.1 F 01/25/25 16:24 Pulse Rate 63 01/25/25 20:52 Respiratory Rate 15 01/25/25 18:49 Blood Pressure 198/94 01/25/25 20:52 Pulse Oximetry 92 01/25/25 20:52 Oxygen Delivery Me thod Room Air 01/25/25 19:42 MDM - SOB/Dyspnea Medical Decision Making Medical decision making: Patient's reason for coming to the emergency room: Swelling and shortness of breath Social determinants: Patient is disabled. She does have family/sister that is actively involved in her care. I reviewed the patient's medical record. I reviewed Dr. Valladares's note from today. 59-year-old female with history of diabetes, obesity, atrial fibrillation, chronic anticoagulation on Xarelto, SVT, COPD I reviewed the patient's current home meds Patient is anticoagulated on Xarelto. She reports to me she has been taking 20 mg of Lasix twice a day. Alternate historians: I did get history from Dr. Valladares prior to the patient coming to the emergency room. Differential diagnosis: including but not limited to and based on the above HPI, review of systems and physical exam: Orders placed to evaluate differential diagnosis based on the above differential, HPI and physical exam EKG: Time 1629. Rate 53. Sinus bradycardia. Nonspecific ST change, no ectopy, normal ME & QRS intervals, This was reviewed and interpreted by myself the ER physician at 1635 Repeat EKG: Time 1935. Rate 61. Normal sinus rhythm, nonspecific ST changes, no ectopy, normal ME & QRS intervals, This was reviewed and interpreted by myself the ER physician at 1940. No significant changes from previous EKG Chest x-ray: Low lung volumes with central bronchovascular crowding patchy bibasilar atelectasis versus edema. I favor edema given her history. This was reviewed and interpreted by myself the emergency room physician. I also reviewed the radiology report. Lab Review: Laboratory results were reviewed and interpreted by myself the emergency room physician. No leukocytosis. No anemia. No renal failure. proBNP is elevated around 7000. Initial troponin is negative. Assessment of risk: Level of risk: Fairly high risk patient. Multiple comorbidities Hospitalization considerations: Patient is being admitted Reexamination: Patient remained stable. No current oxygen requirements no altered mental status. No focal motor deficits. Consultation: I spoke with Dr. Nelson who is on-call for hospitalist service who agrees to admission. Assessment and plan: Edema Congestive heart failure ?80 mg IV Lasix in the emergency room -I discussed the patient with the hospitalist on-call who is admitting the patient. - Discussed findings and plan with patient. Answered any questions. - All laboratory values were reviewed and interpreted personally by myself, the ER physician - All imaging was reviewed and interpreted personally by myself, the ER physician. - Evaluation and treatment of this problem were appropriate in the emergency setting Lab Data 01/25/25 16:47 01/25/25 16:47 Labs/Radiology: Radiology Impressions Chest X-Ray 01/25/25 16:19 IMPRESSION: 1. Low lung volumes with central bronchovascular crowding. 2. Patchy bibasilar atelectasis versus edema. Laboratory Results WBC 9.61 10^3/uL (3.29-11.43) 01/25/25 16:47 RBC 4.70 10^6/uL (3.85-5.65) 01/25/25 16:47 Hgb 12.70 g/dL (11.27-16.99) 01/25/25 16:47 Hct 43.3 % (36-47) 01/25/25 16:47 MCV 92.1 fl (85-98) 01/25/25 16:47 MCH 27.0 pg (27-33) 01/25/25 16:47 MCHC 29.3 g/dL (30-55) L 01/25/25 16:47 RDW 15.3 % (12.1-15.1) H 01/25/25 16:47 Plt Count 234 10^3/cmm (157-399) 01/25/25 16:47 MPV 11.3 fL (7.4-10.4) H 01/25/25 16:47 Neut % (Auto) 61.1 % 01/25/25 16:47 Lymph % (Auto) 25.3 % 01/25/25 16:47 [place] % (Auto) 7.3 % 01/25/25 16:47 Eos % (Auto) 5.3 % 01/25/25 16:47 Baso % (Auto) 0.7 % 01/25/25 16:47 Neut # (Auto) 5.87 10^3/uL (1.8-7.7) 01/25/25 16:47 Lymph # (Auto) 2.4 10^3/uL (0.8-4.8) 01/25/25 16:47 [place] # (Auto) 0.7 10^3/uL (0.2-0.9) 01/25/25 16:47 Eos # (Auto) 0.5 10^3/uL (0.0-0.8) 01/25/25 16:47 Baso # (Auto) 0.1 10^3/uL (0.0-0.1) 01/25/25 16:47 Nucleated RBC % (auto) 0 % 01/25/25 16:47 Nucleated RBCs # 0.0 /100WBC 01/25/25 16:47 Sodium 140 mmol/L (136-145) 01/25/25 16:47 Potassium 3.9 mmol/L (3.5-5.1) 01/25/25 16:47 Chloride 107 mmol/L (98-107) 01/25/25 16:47 Carbon Dioxide 18 mmol/L (22-29) L 01/25/25 16:47 Anion Gap 18.9 (5-19) 01/25/25 16:47 BUN 17 mg/dL (8-23) 01/25/25 16:47 Creatinine 1.0 mg/dL (0.5-0.9) H 01/25/25 16:47 GFR Calculation 56.6 mL/min (90-130) L 01/25/25 16:47 Glucose 224 mg/dL (65-115) H 01/25/25 16:47 Calculated Osmolality 299 mOsm/kg (285-295) H 01/25/25 16:47 Calcium 7.8 mg/dL (8.5-10.5) L 01/25/25 16:47 Total Bilirubin 0.3 mg/dL (0.15-1.2) 01/25/25 16:47 AST 16 U/L (0-32) 01/25/25 16:47 ALT 10 U/L (0-33) 01/25/25 16:47 Alkaline Phosphatase 124 U/L (35-105) H 01/25/25 16:47 Troponin T Baseline 36 ng/L (0-10) H 01/25/25 16:47 Troponin T 120 Minute Cancelled 01/25/25 18:38 Delta Troponin T Cancelled 01/25/25 18:38 NT-Pro-B Natriuret Pep 6569 pg/mL (0-125) H 01/25/25 16:47 Total Protein 5.1 g/dL (6.6-8.7) L 01/25/25 16:47 Albumin 2.1 g/dL (3.5-5.2) L 01/25/25 16:47 Globulin 3.0 g/dL (1.3-4.6) 01/25/25 16:47 All radiology interpretation(s) finalized by discharge Discharge Plan Discharge Patient Disposition: Admitted As Inpatient Admit Provider: Shelbie Mcmahon Clinical Impression: Congestive heart failure, Edema Condition: Stable Coding Level of Care Code ED Scientific Laboratory Supervisor for [employer] Ondina
[2025-01-25 17:14] LABS: Hematocrit 43.3 % (36-47); Hemoglobin 12.70 g/dL (11.27-16.99); Mean Corpuscular HGB Conc 29.3 g/dL (30-55); Mean Corpuscular Hemoglobin 27.0 pg (27-33); Mean Corpuscular Volume 92.1 fl (85-98); Nucleated Red Blood Cells % 0 %; Platelet Count 234 10^3/cmm (157-399); Red Blood Count 4.70 10^6/uL (3.85-5.65); White Blood Count 9.61 10^3/uL (3.29-11.43)
[2025-01-25 18:18] LABS: Troponin(5th) Baseline 36 ng/L (0-10)
--- NOTE | 2025-01-25 18:19 | ECG_ITS ---
[facility] Date: 2025-[facility]-25 Pat Name: Soni Head Department: Room: Gender: Female Medical Recruiter: : 1965 Requested By: Piedad Palacios Order Number: [id number] Eric MD: Theodora Valladares M.D. Measurements Intervals [address] Rate: 61 P: 37 UT: 166 QRS: 13 QRSD: 108 T: 42 QT: 469 QTc: 474 Interpretive Statements SINUS RHYTHM POSSIBLE LEFT ATRIAL ENLARGEMENT [-0.1mV P-WAVE IN V1/V2] POSSIBLE ANTERIOR MYOCARDIAL INFARCTION , OF INDETERMINATE AGE [30 ms Q WAVE IN V3/V4, OR R < 0.2 mV IN V4] Compared to ECG 01/25/2025 16:29:02 Sinus bradycardia no longer present Myocardial infarct finding still present Electronically Signed On 01-25-2025 22:16:48 CANOPY INSPECTOR by Theodora Valladares M.D. [email or web address]
[2025-01-25 18:33] LABS: Alanine Aminotransferase 10 U/L (0-33); Albumin Level 2.1 g/dL (3.5-5.2); Alkaline Phosphatase 124 U/L (35-105); Blood Urea Nitrogen 17 mg/dL (8-23); Calcium 7.8 mg/dL (8.5-10.5); Carbon Dioxide 18 mmol/L (22-29); Chloride 107 mmol/L (98-107); Creatinine Clr Calc Pharmacy 86.9992; Globulin 3.0 g/dL (1.3-4.6); Glucose 224 mg/dL (65-115); NT Pro B Type Natriuretic Pept 6569 pg/mL (0-125); Osmolality Calculated 299 mOsm/kg (285-295); Sodium 140 mmol/L (136-145); Total Protein 5.1 g/dL (6.6-8.7)
[2025-01-25 18:35] LABS: Anion Gap 18.9 (5-19); Aspartate Amino Transferase 16 U/L (0-32); Potassium 3.9 mmol/L (3.5-5.1)
[2025-01-25] MEDS: FUROsemide 10 mg/mL SDV 10mL 80 MG IVP (19:42)
[2025-01-25 20:07] LABS: Troponin 5 2HR 39.31 ng/L (0-10); Troponin 5 2HR Delta 3.31 ABS# (0-10)
--- NOTE | 2025-01-25 20:27 | P.HP_ITS ---
Providers/Chief Complaint 2 Admitting Physician: Shelbie Mcmahon MD----patient admitted before 12 midnight Primary Care Provider: RICHARD Sotelo Chief Complaint: SOB falls and fuild build up History of Present Illness Soni Head is a 59 year old female with medical history significant for diastolic heart failure. With BNP of 6569 patient had gone to see the home health travel ot in the cardiology clinic. Patient is with ongoing worsening shortness of breath and was sent to the emergency room for further evaluation. She is a patient of Dr. Valladares the home health travel ot.. Patient had not gotten any better after having this, home lasix 20 mg twice daily increase outpatient. At the emergency room patient was given 80 mg of IV Lasix I have seen and evaluated patient and had continued with Lasix 40 mg IV daily at 6 AM and 2 PM. Upon rounding on the patient a second time patient verbalized feeling much better.. Will have daily weight, fluid restriction to 1500 daily, intake and output be observed and documented. Patient weight went up from the way it was on prior times. Review of Systems 2 Narrative: System review upon 10 organ review were noted to be remarkable for cardiovascular system with fluid weight gain Medications/Allergies Home Medications ?Medication ?Instructions ?Recorded ?Confirmed ?Last Taken ?Type nitroglycerin 0.4 mg sublingual 0.4 mg sublingual Q5M PRN Chest 06/18/21 01/25/25 12/20/22 History tablet (Nitrostat) Pain Diabetic Shoes with 3 Pairs of #1 ea 02/25/22 01/25/25 12/20/22 Rx Inserts Diabetic shoes with 3 sets of #1 ea 05/22/22 01/25/25 12/20/22 Rx inserts 12 pairs of diabetic socks #1 ea 10/29/22 01/25/25 Rx Diabetic Shoes with 3 pairs of #1 ea 11/26/22 01/25/25 12/20/22 Rx inserts- build up to the right blood-glucose meter #1 ea 11/27/22 01/25/25/12/14 Rx ascorbate calcium (vitamin C) 500 1,000 mg PO BEDTIME 12/09/22 01/25/25 07/26/24 History mg tablet clobetasol 0.05 % topical ointment See Rx Instructions .Route .COMPLEX 11/04/23 01/25/25 Unknown History nystatin 100,000 unit/gram topical 1 applic topical BI D PRN Skin 11/04/23 01/25/25 Unknown History cream Irritation albuterol sulfate 90 mcg/actuation 2 puff inhalation Q ID PRN 05/25/24 01/25/25 Unknown Rx aerosol inhaler Shortness Of Breath #6.7 gra ms lancets #100 ea 05/25/24 01/25/25 Un known Rx blood sugar diagnostic (True #300 ea 06/24/24 01/25/25 Unknown Rx Metrix Glucose Test Strip) blood-glucose meter (True Metrix #1 ea 06/24/24 Unknown Rx Glucose Meter) lancets 31 gauge #300 ea 06/24/24 01/25/25 Un known Rx acetaminophen 500 mg tablet 1,000 mg PO Q6H PRN 01/25/25 Unknown History (Acetaminophen Extra Strength) albuterol sulfate 2.5 mg/3 mL 2.5 mg (3 mL) inhalation Q4H PRN 10/26/24 01/25/25 Unknown Rx (0.083 %) solution for nebulization shortness of breat h or wheezing #90 mL miscellaneous medical supply 1 ea miscellaneous .prn 5 2 weeks 10/26/24 01/25/25 Unknown Rx #1 ea blood-glucose sensor (Dexcom G7 #9 ea 11/04/24 5 Unknown Rx Sensor device) blood-glucose,supervisor steel division,cont #1 ea 11/04/24 01/25/25 Un known Rx (Dexcom G7 Jig Boring Machine Operator For Metal) amiodarone 200 mg tablet See Rx Instructions .Route 0 11/08/24 01/25/25 Unknown Rx .COMPLEX #90 tabs losartan 25 mg tablet See Rx Instructions .Route 0 11/24/24 01/25/25 Unknown Rx .COMPLEX #90 tabs nateglinide 60 mg tablet 60 mg PO TID #270 tabs 11/2901/25/25 Unknown Rx atorvastatin 40 mg tablet 40 mg PO BEDTIME@22 #30 tabs 12/02/24 01/25/25 Unknown Rx blood sugar diagnostic (Blood #100 ea 12/02/24 5 Unknown Rx Glucose Test strips) doxepin 25 mg capsule 25 mg PO BEDTIME@22 #30 caps 12/02/24 01/25/25 Unknown Rx dulaglutide 4.5 mg/0.5 mL 4.5 mg (0.5 mL) SUBCUT .week ly #2 12/02/24 01/25/25 Unknown Rx subcutaneous pen injector mL duloxetine 60 mg capsule,delayed 60 mg PO BID@,22 #6 0 caps 12/02/24 01/25/25 Unknown Rx release gabapentin 300 mg capsule 300 mg PO BID@ #60 caps 12/02/24 01/25/25 Unknown Rx insulin glargine 100 unit/mL (3 60 unit (0.6 mL) SUBCU T BEDTIME 12/02/24 01/25/25 Unknown Rx mL) subcutaneous pen (Lantus #15 mL Solostar U-100 Insulin) levocetirizine 5 mg tablet 5 mg PO BID #60 tabs 01/25/25 Unknown Rx metoprolol tartrate 25 mg tablet 25 mg PO Q12H #60 tab s 12/02/24 01/25/25 Unknown Rx pen needle, diabetic 31 gauge x #1,200 ea 12/02/2407/16 Unknown Rx 5/16 (Comfort EZ Pen [place]) rivaroxaban 20 mg tablet (Xarelto) 20 mg PO BEDTIME@22 #30 tabs 12/02/24 01/25/25 Unknown Rx tizanidine 2 mg tablet 2 mg PO BEDTIME@22 #30 tabs 12/02/24 01/25/25 Unknown Rx albuterol sulfate 90 mcg/actuation 2 puff inhalation Q 6H PRN 12/14/24 01/25/25 Unknown Rx aerosol inhaler (Ventolin HFA) shortness of breath or wheezing #6.7 grams furosemide 20 mg tablet (Lasix) 20 mg PO BID #60 tabs 01/24/25 01/25/25 Unknown Rx methocarbamol 750 mg tablet 750 mg PO Q6H PRN spasms # 20 tabs 01/25/25 01/25/25 Unknown Rx nitrofurantoin 100 mg PO Q12H 7 days #14 ca ps 01/25/25 01/25/25 Unknown Rx monohydrate/macrocrystals 100 mg capsule (Macrobid) Allergies Allergy/AdvReac Type Severity Reaction Status Date / Time latex Allergy Intermediate ALGY-Rash Verified 01/25/25 16:35 azithromycin (From Zithromax) Allergy Unknown ADR-Gastrointestinal Verified 01/25/25 16:35 Upset sulfamethoxazole (From Allergy Unknown ADR-Gastrointestinal Verified 01/25/25 16:35 Bactrim) Upset trimethoprim (From Bactrim) Allergy Unknown ADR-Gastrointestinal Verified 01/25/25 16:35 Upset PFSH Acute 2 PFSH: Medical History Osteoarthritis of spine Ulcer of foot, chronic Breast cancer, right Breast cancer, left breast Open wound of foot Right great toe Gastroesophageal reflux disease Diabetes mellitus with hyperglycemia, with long-term current use of insulin Atrial fibrillation COPD (chronic obstructive pulmonary disease) Dyslipidemia SVT (supraventricular tachycardia) Asthma Benign hypertension COPD exacerbation Surgical History History of amputation of great toe H/O esophagogastroduodenoscopy (10/19/21) H/O bilateral mastectomy Status post left breast lumpectomy Status post right breast lumpectomy History of appendectomy History of hysterectomy Family History Father CAD (coronary artery disease) Congestive heart failure (CHF) Hyperlipidemia Hypertension Lung disease Stroke Other Diabetes Denies family history of Clotting disorder Dementia Psychiatric illness Chronic kidney disease (CKD) Suicide Anesthesia complication Bleeding disorder Family history of premature coronary artery disease Cancer Social History Smoking and tobacco/nicotine status: never used tobacco/nicotine Second hand smoke exposure: Yes Alcohol intake: never Substance/Drug Use: never Adopted: No Caregiver/support person: No Lives independently: Yes Household members: family Housing: House Marital status: Single Number of children: 1 service: No Current occupational status: employed Current gender identity: Female Vitals/I&O/Wt Last Vital Signs Temp 98.1 F 01/25/25 16:24 Pulse 58 L 01/25/25 19:42 Resp 15 01/25/25 18:49 BP 191/94 01/25/25 19:42 Pulse Ox 95 01/25/25 19:42 O2 Del Method Room Air 01/25/25 19:42 Weight last 48 hrs Weight 137.892 kg Physical Exam 2 Narrative: Generally patient is quite morbidly obese. Verbalized feeling better compared to the time prior to arriving to the emergency room HEENT normocephalic/atraumatic neck neck is supple cardiovascular heart rate is regular lungs are pretty much clear. Abdomen soft nontender nondistended unremarkable extremities are intact 1+ edema Data 01/25/25 16:47 01/25/25 16:47 A&P Assessment and plan 1. Congestive heart failure: 2. Chronic anticoagulation: 3. Dyspnea: 4. Edema: Plan: #1 Acute on chronic diastolic heart failure exacerbation - Admit to general medical floor with telemetry - Continue gentle diuresis monitoring renal function - Monitor intake and output - Daily weight - Initiating Lasix 4 mg twice daily at 6 AM and 2 PM - Echo ordered to be done if it has longer than 3 months from the last #2 Accelerated hypertension - Systolic blood pressure greater or equal to 180s - Patient responds to hydralazine vaso dilator - Continue hydralazine and losartan #3 Diabetes type 2 - Keep euglycemic #4 COPD with minimal exacerbation #5 GI and DVT prophylaxis in place PDMP PDMP Reviewed: Last Reviewed 01/26/25 02:56 by Shelbie Mcmahon MD Attestations 2 Medical Necessity Statement*: Patient is on overt heart failure and this 1 need at least 2 midnights to optimize care Coding Level of Care Code Acute Code for Chg Fwd Diagnoses Congestive heart failure I50.9 Chronic anticoagulation Z79.01 Dyspnea R06.00 Edema R60.9 Time Spent (min) 60
--- NOTE | 2025-01-25 20:50 | PC.NURSE ---
PT HAS BEEN HYPERTENSIVE IN ED INFORMED FLOOR NURSE IN REPORT THAT PT HAS HYPERTENSION AND TAKES HYPERTENSION MEDS AT HOME BUT DOESNT KNOW WHAT SHE TAKES OR WHEN SHE TAKES IT.
--- NOTE | 2025-01-25 22:05 | PC.NURSE ---
pt's initial BP was 198/94 with automatic cuff, 188/80 with manual, nurse called Dr. Mcmahon who gave verbal order to administer 50mg of hydralazine by mouth one time. Nurse read back order, doctor confirmed.
[2025-01-25] MEDS: heparin 5,000 unit/mL INJ 1 mL 5000 UNIT SUBCUT (22:56)
--- NOTE | 2025-01-25 23:31 | ECG_ITS ---
[employer] Test Date: 2025-01-25 Pat Name: Soni Head Department: Room: 251 Gender: Female Account Resolution Specialist: : 1965 Requested By: Piedad Palacios Order Number: [id number] Eric MD: Theodora Valladares M.D. Measurements Intervals [place] Rate: 58 P: 39 [place]: 160 QRS: 56 QRSD: 110 T: 28 QT: 401 QTc: 395 Interpretive Statements SINUS BRADYCARDIA POSSIBLE ANTERIOR MYOCARDIAL INFARCTION , OF INDETERMINATE AGE [30 ms Q WAVE IN V3/V4, OR R < 0.2 mV IN V4] Compared to ECG 01/25/2025 19:35:31 Sinus rhythm no longer present Myocardial infarct finding still present Electronically Signed On 01-26-2025 23:57:22 SPARMAKER by Theodora Valladares M.D. [email or web address]
[2025-01-25 23:40] LABS: Troponin 5 6HR 53.06 ng/L (0-10)
[2025-01-25 23:43] LABS: Troponin 5 6HR Delta 17.06 ng/L (0-12)
--- NOTE | 2025-01-25 23:47 | PC.NURSE ---
nurse received critical lab value of 6 hr delta troponin 17.06, Dr. Mcmahon notified, no new orders received
[2025-01-26] VITALS (15 sets, daily range): BP systolic 130–188; BP diastolic 64–79; PULSE 55–73; RESP 15–18; TEMP 36.5–37.1; O2SAT 91–96
[2025-01-26 04:44] LABS: Hematocrit 39.9 % (36-47); Hemoglobin 12.60 g/dL (11.27-16.99); Mean Corpuscular HGB Conc 31.6 g/dL (30-55); Mean Corpuscular Hemoglobin 27.0 pg (27-33); Mean Corpuscular Volume 85.6 fl (85-98); Nucleated Red Blood Cells % 0 %; Platelet Count 231 10^3/cmm (157-399); Red Blood Count 4.66 10^6/uL (3.85-5.65); White Blood Count 9.36 10^3/uL (3.29-11.43)
[2025-01-26 05:04] LABS: Alanine Aminotransferase 10 U/L (0-33); Albumin Level 2.3 g/dL (3.5-5.2); Alkaline Phosphatase 121 U/L (35-105); Anion Gap 13.5 (5-19); Aspartate Amino Transferase 11 U/L (0-32); Blood Urea Nitrogen 16 mg/dL (8-23); Calcium 7.8 mg/dL (8.5-10.5); Carbon Dioxide 26 mmol/L (22-29); Chloride 109 mmol/L (98-107); Creatinine Clr Calc Pharmacy 88.2950; Globulin 2.5 g/dL (1.3-4.6); Glucose 188 mg/dL (65-115); Magnesium 2.0 mg/dL (1.7-2.3); Osmolality Calculated 306 mOsm/kg (285-295); Potassium 3.5 mmol/L (3.5-5.1); Sodium 145 mmol/L (136-145); Total Protein 4.8 g/dL (6.6-8.7)
[2025-01-26] MEDS: FUROsemide 10 mg/mL SDV 4mL 40 MG IVP ×2 (05:27→17:44)
[2025-01-26] MEDS: heparin 5,000 unit/mL INJ 1 mL 5000 UNIT SUBCUT (07:30)
--- NOTE | 2025-01-26 08:14 | PM.CONSULT ---
Providers/Reason For Consult Consulting Physician/Specialty*: MARNIE Valladares MD/cardiology Reason for Consult*: Patient with congestive heart failure/atrial fibrillation Requesting Physician: Dr. Chung Attending Physician: Ji Chung MD Primary Care Provider: RICHARD Sotelo History of Present Illness History of Present Illness Soni Head is a 59 year old female with a history of chronic intermittent atrial fibrillation, high blood pressure, diastolic heart failure, is admitted to hospital through the emergency room where she presented with progressive shortness of breath, bilateral leg swelling and frequent falls This patient has a history of chronic intermittent atrial fibrillation. She is on long-term oral anticoagulation. For the last month or so, she been having increasing swelling in the extremities and dyspnea on exertion. She also may have occasional episodes of palpitation. She was finding it difficult to navigate. She also had several episodes of falls. She was in the emergency room yesterday for a fall. She sustained some contusion of the right shoulder. X-ray was unremarkable. A CT scan of the head was done to rule out any intracranial bleed She also has been noticing unsteadiness in her gait for the last few months. 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 Previous CT scan showed evidence of lacunar infarcts in the cerebellum. She has some chest tightness and discomfort. No significant pain anxiety. She has been noticing increasing swelling of the lower extremities. She has been taking the Lasix but seems to be not helping the symptoms. Denies any orthopnea PND. She also had a venous Doppler examination of the lower extremities which revealed no evidence of any DVT. She has a history of hypertension, type 2 diabetes, dyslipidemia, morbid obesity, history of SVT. She was supposed to see an weight reducing technician in [place] for the management of the atrial fibrillation specifically to evaluate for catheter-based options.. Apparently the appointment got canceled because of the insurance issues. Review of Systems Narrative: CONSTITUTIONAL: No fever or chills. Obesity EYES: No blurring of vision or other visual disturbances lately. ENT: No hoarseness of voice, auditory disturbances or sore throat. Unsteady gait CARDIOVASCULAR: As mentioned above. RESPIRATORY: No significant cough. GASTROINTESTINAL: No hematemesis or melena. GENITOURINARY: No dysuria or hematuria. INTEGUMENTARY: No skin rashes or history of skin cancer. NEURO: No transient ischemic attacks or amaurosis. PSYCHIATRIC: No history of psychosis or major depression. HEMATOLOGIC: No bleeding disorders or significant anemia. ENDOCRINE: No history of polyuria or polydipsia. MUSCULOSKELETAL: No recent joint pain or swelling. ALLERGY/IMMUNOLOGY: As mentioned above. Medications/Allergies Home Medications ?Medication ?Instructions ?Recorded ?Confirmed ?Last Taken ?Type nitroglycerin 0.4 mg sublingual 0.4 mg sublingual Q5M PRN Chest 06/18/21 01/26/25 12/20/22 History tablet (Nitrostat) Pain Diabetic Shoes with 3 Pairs of #1 ea 02/25/22 01/26/25 12/20/22 Rx Inserts Diabetic shoes with 3 sets of #1 ea 05/22/22 01/26/25 12/20/22 Rx inserts 12 pairs of diabetic socks #1 ea 10/29/22 01/26/25 12/20/22 Rx Diabetic Shoes with 3 pairs of #1 ea 11/26/22 01/26/25 12/20/22 Rx inserts- build up to the right blood-glucose meter #1 ea 11/27/22 01/26/25 12/20/22 Rx ascorbate calcium (vitamin C) 500 1,000 mg PO BEDTIME 12/09/22 01/26/25 01/24/25 History mg tablet lancets #100 ea 05/25/24 01/26/25 Unknown Rx blood sugar diagnostic (True #300 ea 06/24/24 01/26/25 Unknown Rx Metrix Glucose Test Strip) blood-glucose meter (True Metrix #1 ea 06/24/24 01/26/25 Unknown Rx Glucose Meter) lancets 31 gauge #300 ea 06/24/24 01/26/25 Unknown Rx acetaminophen 500 mg tablet 1,000 mg PO Q6H PRN Pain 10/13/24 01/26/25 Unknown History (Acetaminophen Extra Strength) albuterol sulfate 2.5 mg/3 mL 2.5 mg (3 mL) inhalation Q4H PRN 10/26/24 01/26/25 Unknown Rx (0.083 %) solution for nebulization shortness of breath or wheezing #90 mL blood-glucose sensor (Dexcom G7 #9 ea 11/04/24 01/26/25 Unknown Rx Sensor device) blood-glucose,hearing aid consultant,cont #1 ea 11/04/24 01/26/25 Unknown Rx (Dexcom G7 Press Pipe Inspector) losartan 25 mg tablet See Rx Instructions .Route 11/24/24 01/26/25 01/25/25 Rx .COMPLEX #90 tabs nateglinide 60 mg tablet 60 mg PO TID #270 tabs 11/29/24 01/26/25 01/25/25 Rx atorvastatin 40 mg tablet 40 mg PO BEDTIME@22 #30 tabs 12/02/24 01/26/25 01/24/25 Rx blood sugar diagnostic (Blood #100 ea 12/02/24 01/26/25 Unknown Rx Glucose Test strips) doxepin 25 mg capsule 25 mg PO BEDTIME@22 #30 caps 12/02/24 01/26/25 01/24/25 Rx dulaglutide 4.5 mg/0.5 mL 4.5 mg (0.5 mL) SUBCUT .weekly #2 12/02/24 01/26/25 01/21/25 Rx subcutaneous pen injector mL duloxetine 60 mg capsule,delayed 60 mg PO BID@10,22 #60 caps 12/02/24 01/26/25 01/25/25 Rx release gabapentin 300 mg capsule 300 mg PO BID@10,22 #60 caps 12/02/24 01/26/25 01/25/25 Rx levocetirizine 5 mg tablet 5 mg PO BID #60 tabs 12/02/24 01/26/25 01/25/25 Rx metoprolol tartrate 25 mg tablet 25 mg PO Q12H #60 tabs 12/02/24 01/26/25 01/25/25 Rx pen needle, diabetic 31 gauge x #1,200 ea 12/02/24 01/26/25 Unknown Rx 5/16 (Comfort EZ Pen Toutle) rivaroxaban 20 mg tablet (Xarelto) 20 mg PO BEDTIME@22 #30 tabs 12/02/24 01/26/25 01/24/25 Rx tizanidine 2 mg tablet 2 mg PO BEDTIME@22 #30 tabs 12/02/24 01/26/25 01/24/25 Rx albuterol sulfate 90 mcg/actuation 2 puff inhalation Q6H PRN 12/14/24 01/26/25 Unknown Rx aerosol inhaler (Ventolin HFA) shortness of breath or wheezing #6.7 grams furosemide 20 mg tablet (Lasix) 20 mg PO BID #60 tabs 01/24/25 01/26/25 01/25/25 Rx methocarbamol 750 mg tablet 750 mg PO Q6H PRN spasms #20 tabs 01/25/25 01/26/25 Unknown Rx nitrofurantoin 100 mg PO Q12H 7 days #14 caps 01/25/25 01/26/25 01/25/25 Rx monohydrate/macrocrystals 100 mg capsule (Macrobid) amiodarone 200 mg tablet 200 mg PO DAILY 01/26/25 01/26/25 01/25/25 History insulin glargine 100 unit/mL (3 30 unit SUBCUT BEDTIME 01/26/25 01/26/25 01/24/25 History mL) subcutaneous pen (Lantus Solostar U-100 Insulin) Allergies Allergy/AdvReac Type Severity Reaction Status Date / Time latex Allergy Intermediate ALGY-Rash Verified 01/25/25 16:35 azithromycin (From Zithromax) Allergy Unknown ADR-Gastrointestinal Verified 01/25/25 16:35 Upset sulfamethoxazole (From Allergy Unknown ADR-Gastrointestinal Verified 01/25/25 16:35 Bactrim) Upset trimethoprim (From Bactrim) Allergy Unknown ADR-Gastrointestinal Verified 01/25/25 16:35 Upset Current Medications Generic Name Dose Route Start Last Admin Trade Name Freq PRN Reason Stop Dose Admin Docusate Sodium 100 mg 01/26/25 05:00 01/26/25 05:27 Docusate Sodium 100 Mg Capsule PO Not Given BID KELSEA Furosemide 40 mg 01/26/25 06:00 01/26/25 05:27 Furosemide 10 Mg/Ml Sdv 4ml IVP 40 mg BID@0600,1400 KELSEA Administration Heparin Sodium (Porcine) 5,000 unit 01/25/25 20:00 01/26/25 07:30 Heparin 5,000 Unit/Ml Inj 1 Ml SUBCUT 5,000 unit Q12H KELSEA Administration Insulin Human Lispro 0 unit 01/25/25 21:00 01/26/25 07:29 Insulin Lispro 100 Unit/1 Ml SUBCUT 2 unit WM&BEDTIME KELSEA Administration Protocol Pantoprazole Sodium 40 mg 01/26/25 05:00 01/26/25 05:[address] 40 Mg Tablet PO 40 mg DAILY KELSEA Administration Senna 17.2 mg 01/25/25 21:00 01/25/25 22:56 Sennosides 8.6 Mg Tablet PO Not Given BEDTIME KELSEA PFSH Acute PFSH: Medical History Osteoarthritis of spine Ulcer of foot, chronic Breast cancer, right Breast cancer, left breast Open wound of foot Right great toe Gastroesophageal reflux disease Diabetes mellitus with hyperglycemia, with long-term current use of insulin Atrial fibrillation COPD (chronic obstructive pulmonary disease) Dyslipidemia SVT (supraventricular tachycardia) Asthma Benign hypertension COPD exacerbation Surgical History History of amputation of great toe H/O esophagogastroduodenoscopy (10/19/21) H/O bilateral mastectomy Status post left breast lumpectomy Status post right breast lumpectomy History of appendectomy History of hysterectomy Family History Father CAD (coronary artery disease) Congestive heart failure (CHF) Hyperlipidemia Hypertension Lung disease Stroke Other Diabetes Denies family history of Clotting disorder Dementia Psychiatric illness Chronic kidney disease (CKD) Suicide Anesthesia complication Bleeding disorder Family history of premature coronary artery disease Cancer Social History Smoking and tobacco/nicotine status: never used tobacco/nicotine Second hand smoke exposure: Yes Alcohol intake: never Substance/Drug Use: never Adopted: No Caregiver/support person: No Lives independently: Yes Household members: family Housing: House Marital status: Single Number of children: 1 service: No Current occupational status: employed Current gender identity: Female Vitals/I&O/Wt Last Vital Signs Temp 98.6 F 01/26/25 04:00 Pulse 72 01/26/25 06:00 Resp 16 01/26/25 04:00 BP 175/79 01/26/25 04:00 Pulse Ox 91 01/26/25 04:00 O2 Del Method Nasal Cannula 01/26/25 04:00 O2 Flow Rate 1 01/26/25 04:00 01/25/25 01/26/2525 22:59 06:59 14:59 Intake Total 200 / 200 Output Total 300 / 300 400 / 700 Balance -100 / -100 -400 / -500 Weight last 48 hrs Weight 202 lb Weight 311 lb 9 oz Weight 304 lb Physical Exam Narrative: GENERAL: The patient is alert and oriented times three. Not in any acute distress. HEENT: No significant pallor, icterus or lymphadenopathy.Oral cavity: There are no mucous membrane lesions. NECK: Trachea appears to be central. No masses noted. No JVD or thyromegaly appreciated. RESPIRATORY: Chest is symmetrical. No intercostals muscle retraction or any accessory muscle activation. There is no chest wall tenderness. Breath sounds are heard bilaterally. No rales or rhonchi heard. No evidence of any consolidation. BREASTS: Deferred. HEART: The heart sounds are normal. No S3 or S4. Short systolic murmur in the left upper border. No diastolic murmurs. No pericardial rub ABDOMEN: No vessel pulsations or distention. No tenderness. No organomegaly appreciated. Bowel sounds are normally heard. : Deferred. RECTAL: Deferred. Obese LYMPHATIC: No lymphadenopathy noted in the neck. EXTREMITIES: 2+ edema of both lower extremities. No cyanosis MUSCULOSKELETAL: No acute joint deformities or swelling SKIN: There are no significant rashes or ecchymosis NEUROPSYCHIATRIC: The patient is alert and oriented x3. Appears to be in a good mood. No tremors or rigidity noted. Data 01/26/25 04:30 01/26/25 04:30 Other Labs: Laboratory Last Values WBC 9.36 10^3/uL (3.29-11.43) 01/26/25 04:30 RBC 4.66 10^6/uL (3.85-5.65) 01/26/25 04:30 Hgb 12.60 g/dL (11.27-16.99) 01/26/25 04:30 Hct 39.9 % (36-47) 01/26/25 04:30 MCV 85.6 fl (85-98) D 01/26/25 04:30 MCH 27.0 pg (27-33) 01/26/25 04:30 MCHC 31.6 g/dL (30-55) D 01/26/25 04:30 RDW 15.6 % (12.1-15.1) H 01/26/25 04:30 Plt Count 231 10^3/cmm (157-399) 01/26/25 04:30 MPV 11.6 fL (7.4-10.4) H 01/26/25 04:30 Neut % (Auto) 61.1 % 01/26/25 04:30 Lymph % (Auto) 25.4 % 01/26/25 04:30 [place] % (Auto) 7.9 % 01/26/25 04:30 Eos % (Auto) 4.6 % 01/26/25 04:30 Baso % (Auto) 0.6 % 01/26/25 04:30 Neut # (Auto) 5.71 10^3/uL (1.8-7.7) 01/26/25 04:30 Lymph # (Auto) 2.4 10^3/uL (0.8-4.8) 01/26/25 04:30 [place] # (Auto) 0.7 10^3/uL (0.2-0.9) 01/26/25 04:30 Eos # (Auto) 0.4 10^3/uL (0.0-0.8) 01/26/25 04:30 Baso # (Auto) 0.1 10^3/uL (0.0-0.1) 01/26/25 04:30 Nucleated RBC % (auto) 0 % 01/26/25 04:30 Nucleated RBCs # 0.0 /100WBC 01/26/25 04:30 Sodium 145 mmol/L (136-145) 01/26/25 04:30 Potassium 3.5 mmol/L (3.5-5.1) 01/26/25 04:30 Chloride 109 mmol/L (98-107) H 01/26/25 04:30 Carbon Dioxide 26 mmol/L (22-29) 01/26/25 04:30 Anion Gap 13.5 (5-19) 01/26/25 04:30 BUN 16 mg/dL (8-23) 01/26/25 04:30 Creatinine 1.0 mg/dL (0.5-0.9) H 01/26/25 04:30 GFR Calculation 56.6 mL/min (90-130) L 01/26/25 04:30 Glucose 188 mg/dL (65-115) H 01/26/25 04:30 POC Glucose 177 mg/dL (70-110) H 01/26/25 06:02 Calculated Osmolality 306 mOsm/kg (285-295) H 01/26/25 04:30 Calcium 7.8 mg/dL (8.5-10.5) L 01/26/25 04:30 Phosphorus 4.2 mg/dL (2.5-4.5) 01/26/25 04:30 Magnesium 2.0 mg/dL (1.7-2.3) 01/26/25 04:30 Total Bilirubin 0.2 mg/dL (0.15-1.2) 01/26/25 04:30 AST 11 U/L (0-32) 01/26/25 04:30 ALT 10 U/L (0-33) 01/26/25 04:30 Alkaline Phosphatase 121 U/L (35-105) H 01/26/25 04:30 Troponin T Baseline 36 ng/L (0-10) H 01/25/25 16:47 Troponin T 120 Minute 39.31 ng/L (0-10) H 01/25/25 19:46 Delta Troponin T 3.31 ABS# (0-10) 01/25/25 19:46 Troponin T Hi Sens 6Hr 53.06 ng/L (0-10) H 01/25/25 23:17 Troponin T Hi Sens 6Hr Delta 17.06 ng/L (0-12) H* 01/25/25 23:17 NT-Pro-B Natriuret Pep 6569 pg/mL (0-125) H 01/25/25 16:47 Total Protein 4.8 g/dL (6.6-8.7) L 01/26/25 04:30 Albumin 2.3 g/dL (3.5-5.2) L 01/26/25 04:30 Globulin 2.5 g/dL (1.3-4.6) 01/26/25 04:30 A&P Assessment and plan 1. Elevated troponin: It could be related to type II [place]. Possibility of coronary ischemia/injury causing this cannot be excluded. We may cancel cardiac enzymes and EKGs. Patient may be treated with subcu Lovenox beta-blockers and other symptomatic measures. 2. Chest pain, unspecified type: This patient has some vague chest symptoms. In view of the elevated troponin T possibility of her having underlying coronary artery disease cannot be excluded. She has multiple risk factors. For further evaluation of the symptoms, a Myocardial perfusion imaging would be appropriate. 3. Acute on chronic diastolic heart failure: Patient very carefully treated with diuretics. I may go ahead and do a Lexiscan/sestamibi/sestamibi stress test to further evaluate for underlying coronary ischemia. Based on the results, further recommendations will be made. 4. Intermittent atrial fibrillation: Patient currently seems to be in sinus rhythm. May continue with current medications. Continue on the subcu Lovenox. 5. Chronic anticoagulation: Patient is on Eliquis. As of now it is on hold. 6. Benign hypertension: Since the blood pressure is in the normal range, patient may not require any medication changes at this time. Advised to continue on the current measures. 7. Type 2 diabetes mellitus with hyperglycemia, with long-term current use of insulin: Diabetes seems to be fairly under control. Advised to continue on the current measures. Plan: I may increase the dose of the Lasix to 60 mg every 8 hours. Potassium 20 mEq p.o. every 6 hours Schedule the patient for a Lexiscan/sestamibi/sestamibi stress test. Based on the results of the above tests and the patient's clinical progress, further recommendations will be made. Thank you for the opportunity to evaluate this patient and make these recommendations PDMP PDMP Reviewed: Not Reviewed Coding Level of Care Code Acute Code for [facility] Fwd Diagnoses Elevated troponin R79.89 Chest pain, unspecified type R07.9 Chest pain type: unspecified Acute on chronic diastolic heart failure I50.33 Intermittent atrial fibrillation I48.0 Chronic anticoagulation Z79.01 Benign hypertension I10 Type 2 diabetes mellitus with hyperglycemia, with long-term current use of insulin E11.65; Z79.4 Diabetes mellitus type: type 2
--- NOTE | 2025-01-26 09:00 | PC.PHAR ---
Pt states she did not get her pm medications upon admit after going to the floor. Verified she took her am meds.
[2025-01-26] MEDS: insulin glargine 100 units/1 mL 30 UNIT SUBCUT (09:19)
--- NOTE | 2025-01-26 09:26 | PC.CHAP ---
Pastoral Care Encounter/Spiritual Assessment Type of Contact [] Declined machine rope maker visit [] Patient/Family/Request visit [] Outpatient visit [] Follow-up visit [] Physician referral [] Code/Alert [] Routine visit [] Staff referral [] Actively dying [] Patient sleeping [] Family support [] [] Out of room [] Palliative care [] [x] Receiving care in room [] Pre-surgical visit [] Trauma [] Long length of stay [] ICU visit [] Other: Relational/Emotional Strength [] Patient feels connected with others/family/visitors/staff [] Distress [] Loneliness/isolation [] Abandonment Spirituality of Patient [] Person of Mikayla [] Attends Anabaptist of their Mikayla [] Believes in Prayer [] Reads Bible or Faith materials [] There are Spiritual issues to be addressed Sports Physiotherapist Interventions [] Prayer [] Active listening [] Non-anxious presence [] Spiritual/emotional support [] Crisis/trauma care [] Spiritual counseling [] Bereavement support [] Provided bereavement packet [] Provided Bible/devotional materials [] Provided toy/stuffed animal, coloring book to patient or family member [] Provided Communion [] Anointing/[place] [] Salvation [] Completed spiritual assessment [] Other: Impact on Illness or Injury [] Angry [] Fearful [] Anxious [] Often cries [] Exhaustion [] Unable to work [] Unable to attend buddhism [] Unable to walk/stand [] Unable to read [] Unable to drive [] Unable to eat/drink [] Unable to sleep [] Unable to be with family [] Patient intubated [] Other: Summary Time spent with patient
--- NOTE | 2025-01-26 13:29 | P.PN_ITS ---
Subjective 2 Subjective: Patient was seen this morning, she is alert to person, to place, time, she follows all commands, does report bilateral lower extremity edema, shortness of breath, generalized anasarca Vitals/I&O/Wt Last Vital Signs Temp 98.4 F 01/26/25 11:12 Pulse 71 01/26/25 11:18 Resp 16 01/26/25 11:14 BP 188/79 01/26/25 11:12 Pulse Ox 93 01/26/25 11:14 O2 Del Method Nasal Cannula 01/26/25 11:14 O2 Flow Rate 1 01/26/25 11:14 01/25/25 01/26/25 01/26/25 22:59 06:59 14:59 Intake Total 200 / 200 480 / 480 Output Total 300 / 300 400 / 700 600 / 600 Balance -100 / -100 -400 / -500 -120 / -120 Weight last 48 hrs Weight 91.626 kg Weight 141.322 kg Weight 137.892 kg Physical Exam 2 Const: COMMON NORMALS: no acute distress and patient oriented x3 Resp: COMMON NORMALS: normal respiratory effort, No retractions and No use of accessory muscles AUSCULTATION: crackles Cardio: COMMON NORMALS: regular rate, regular rhythm, S1 normal heart sound present and S2 normal heart sound present RATE: regular rate RHYTHM: r egular rhythm HEART SOUNDS: S1 normal heart sound present and S2 normal heart sound present GI: COMMON NORMALS: Normal to inspection, nondistended, normoactive bowel sounds present and non-tender Extremity: NARRATIVE EXTREMITY EXAM: 2+ pitting edema bilateral lower extremi ty Neuro: COMMON NORMALS: patient oriented x3 Psych: COMMON NORMALS: mental status grossly normal Data 01/26/25 04:30 01/26/25 04:30 A&P Assessment and plan 1. Congestive heart failure: 2. Chronic anticoagulation: 3. Dyspnea: 4. Edema: Plan: #1 Acute on chronic diastolic heart failure exacerbation - Place Mcdowell catheter - Lasix 40 IV twice daily - Monitor intake and output - Monitor urine output, monitor creatinine - Cardiology consulted #2 Accelerated hypertension -Add hydralazine - Continue, losartan #3 Diabetes type 2 - Lantus 30 units subcu daily - Insulin sliding scale #4 COPD not in exacerbation #5 NSTEMI - No chest pain complaints - Serial EKGs, serial troponins, telemetry monitoring - Aspirin, statin, beta-janie #5 GI and DVT prophylaxis in place PDMP PDMP Reviewed: Not Reviewed Attestations 2 Medical Necessity Statement*: Patient requires hospitalization for CHF exacerbation, requiring IV diuresis Diagnoses Congestive heart failure I50.9 Chronic anticoagulation Z79.01 Dyspnea R06.00 Edema R60.9
[2025-01-26 14:02] LABS: ABG PCO2 49.8 mmHg (35-45); ABG PH Result 7.36 (7.35-7.45); Arterial Blood Gas Hematocrit 40.0 % (37-47); Blood Gas Allen Test Pos; Blood Gas Operator Identificat CAK; Blood Gas Sample Site Radial, left; Blood Gas Sample Type Arterial; HCO3 ABG 28.4 mmol/L (22-26); PO2 ABG 53.6 mmHg (80.0-100.0); PO2 FiO2 Ratio Arterial Blood 255
--- NOTE | 2025-01-26 17:24 | ECG_ITS ---
[employer] Test Date: 2025-01-27 Pat Name: Soni Head Department: Room: 251 Gender: Female Manager Software Development: : 1965 Requested By: Theodora Valladares Order Number: [id number] Eric MD: Theodora Valladares M.D. Interpretive Statements Lung unchanged pre/post procedure; Intraprocedure shortess of breath;; Symptoms resoled by discharge PROCEDURE: At the baseline, the EKG revealed normal sinus rhythm with poor R wave progression. Possible old anteroseptal [place]. Nonspecific IVCD.. The baseline heart was 64 bpm with a blood pressue of 180/109 mm of Hg Lexiscan was infused over a period of 20 seconds. A total of 0.4 milligrams of Lexiscan was infused. The stress phase was continued for a total of 5 minutes. Heart rate at the end of the stress phase was 69 bpm with a blood pressure 162/62 mm of Hg. The EKG at the peak infusion revealed no significant changes. Sestamibi was injected 20 seconds after the Lexiscan infusion. Heart rate at the end of the recovery phase was 68 bpm with a blood pressure of 159/77 mm of Hg. CONCLUSION: 1. No significant EKG changes with the LexiScan infusion 2. No LexiScan induced chest pain or cardiac arrhythmia 3. Normal blood pressure and heart rate response 4. Sestamibi/sestamibi perfusion scan pending; see separate report. Electronically Signed On 01-28-2025 20:10:13 ORDNANCE ENGINEERING TECHNICIAN by Theodora Valladares M.D. [email or web address]
[2025-01-26] MEDS: FUROsemide 10 mg/mL SDV 10mL 60 MG IVP (21:38)
[2025-01-27] VITALS (13 sets, daily range): BP systolic 149–198; BP diastolic 63–89; PULSE 48–74; RESP 15–19; TEMP 36.1–37.1; O2SAT 92–96
[2025-01-27] MEDS: FUROsemide 10 mg/mL SDV 10mL 60 MG IVP ×3 (04:40→21:15)
[2025-01-27 05:25] LABS: Hematocrit 37.5 % (36-47); Hemoglobin 11.60 g/dL (11.27-16.99); Mean Corpuscular HGB Conc 30.9 g/dL (30-55); Mean Corpuscular Hemoglobin 27.2 pg (27-33); Mean Corpuscular Volume 87.8 fl (85-98); Nucleated Red Blood Cells % 0 %; Platelet Count 232 10^3/cmm (157-399); Red Blood Count 4.27 10^6/uL (3.85-5.65); White Blood Count 10.62 10^3/uL (3.29-11.43)
[2025-01-27 05:48] LABS: Alanine Aminotransferase 9 U/L (0-33); Albumin Level 2.2 g/dL (3.5-5.2); Alkaline Phosphatase 107 U/L (35-105); Anion Gap 12.3 (5-19); Aspartate Amino Transferase 9 U/L (0-32); Blood Urea Nitrogen 19 mg/dL (8-23); Calcium 7.6 mg/dL (8.5-10.5); Carbon Dioxide 29 mmol/L (22-29); Chloride 106 mmol/L (98-107); Creatinine Clr Calc Pharmacy 80.3365; Globulin 2.7 g/dL (1.3-4.6); Glucose 150 mg/dL (65-115); Magnesium 2.0 mg/dL (1.7-2.3); Osmolality Calculated 301 mOsm/kg (285-295); Potassium 4.3 mmol/L (3.5-5.1); Sodium 143 mmol/L (136-145); Total Protein 4.9 g/dL (6.6-8.7)
[2025-01-27 05:55] LABS: NT Pro B Type Natriuretic Pept 5716 pg/mL (0-125)
[2025-01-27 09:09] LABS: Free T4 Free Thyroxine 0.94 ng/dL (0.82-1.77); Thyroid Stimulating Hormone 3.11 uIU/mL (0.27-4.20)
[2025-01-27] MEDS: insulin glargine 100 units/1 mL 30 UNIT SUBCUT (11:45)
--- NOTE | 2025-01-27 12:34 | P.PN_ITS ---
Subjective 2 Subjective: Patient was seen this morning, currently alert oriented x 3, following commands, sitting up beside the bed, does report dizziness upon changing position, no nausea, no vomiting, no neck pain, does report carcot foot disease, continues to complain of edema, Vitals/I&O/Wt Last Vital Signs Temp 98.5 F 01/27/25 11:00 Pulse 70 01/27/25 11:33 Resp 16 01/27/25 11:32 BP 197/73 01/27/25 11:00 Pulse Ox 94 01/27/25 11:32 O2 Del Method Room Air 01/27/25 11:32 O2 Flow Rate 1 01/27/25 04:00 01/26/25 01/27/25 01/27/25 22:59 06:59 14:59 Intake Total 360 / 840 620 / 1460 Output Total 200 / 800 1000 / 1800 1300 / 1300 Balance 160 / 40 -380 / -340 -1300 / -1300 Weight last 48 hrs Weight 141.521 kg Weight 91.626 kg Weight 141.322 kg Weight 137.892 kg Physical Exam 2 Const: COMMON NORMALS: no acute distress and patient oriented x3 Resp: COMMON NORMALS: normal respiratory effort, No retractions, No use of accessory muscles and clear to auscultation bilaterally AUSCULTATION: clear to auscultation bilaterally Cardio: COMMON NORMALS: regular rate, regular rhythm, S1 normal heart sound present and S2 normal heart sound present RATE: regular rate RHYTHM: r egular rhythm HEART SOUNDS: S1 normal heart sound present and S2 normal heart sound present GI: COMMON NORMALS: Normal to inspection, nondistended, normoactive bowel sounds present and non-tender Extremity: NARRATIVE EXTREMITY EXAM: 2+ edema Neuro: COMMON NORMALS: patient oriented x3 Psych: COMMON NORMALS: mental status grossly normal Urinary Catheter Management: Mcdowell: Cath Placed During This Visit: no Reason for Continuing Indwelling Catheter: Accurate Measurement of Urinary Output in Critically Ill Patients Data 01/27/25 04:35 01/27/25 04:35 A&P Assessment and plan 1. Congestive heart failure: 2. Chronic anticoagulation: 3. Dyspnea: 4. Edema: Plan: #1 Acute on chronic diastolic heart failure exacerbation - Place Mcdowell catheter - 60 IV twice daily - Monitor intake and output - Monitor urine output, monitor creatinine - Cardiology consulted, status post stress testing today #2 Accelerated hypertension -Add hydralazine - Continue, losartan #3 Diabetes type 2 - Lantus 30 units subcu daily - Insulin sliding scale #4 COPD not in exacerbation #5 NSTEMI - No chest pain complaints - Serial EKGs, serial troponins, telemetry monitoring - Aspirin, statin, beta-janie #6 dizziness -Reports dizziness over the last few months -No focal neurologic deficits, -CT head 01/24/2025 associated with fall -FINDINGS: Brain: No acute intracranial hemorrhage. No midline shift or mass effect. No acute territorial infarct. Cerebral ventricles: The ventricles and sulci are commensurate with age. Paranasal sinuses: Visualized sinuses are unremarkable. No fluid levels. Mastoid air cells: Visualized mastoid air cells are well aerated. Bones: Unremarkable. No acute fracture. Soft tissues: Unremarkable. MRI brain 12/20/2024 MR/MR pituitary wo/w con* [id number] IMPRESSION: 1. Findings are nonspecific and may be incidental but can be seen with lymphocytic apophysitis, occult adenoma, and possibly primary hypothyroidism with pituitary hyperplasia. Recommend correlation with pituitary and endocrine studies and endocrine consult. Recommend 6 to 12-month follow-up MRI pituitary to confirm stability 2. New small focus of restricted diffusion along the anterior LEFT temporal lobe suspicious for a small focus of ischemia measuring 6 mm. This is new from previous. CTA head and neck CT/CT angio neck [id number] IMPRESSION: 1. No significant cervical ICA stenosis bilaterally. Mild atheromatous plaque LEFT carotid bulb. 2. LEFT dominant vertebral artery is patent to the basilar junction. Only a tiny hypoplastic RIGHT vertebral artery. 3. Enlarged multinodular thyroid. This can be followed up with ultrasound. -Could be associated with her Charcot foot disease Plan - Continue aspirin, statin - Continue Xarelto - PT OT GI and DVT prophylaxis in place PDMP PDMP Reviewed: Not Reviewed Attestations 2 Medical Necessity Statement*: Patient requires hospitalization for fluid overload, requiring IV diuresis Diagnoses Congestive heart failure I50.9 Chronic anticoagulation Z79.01 Dyspnea R06.00 Edema R60.9
--- NOTE | 2025-01-27 12:42 | P.PN_ITS ---
Subjective 2 Subjective: Patient seems to be responding to Lasix. She still has significant edema of the lower extremities. Shortness of breath as improved significantly. Denies any fever, chills or cough. Medications: Medication Review Details: Current Medications Acetaminophen (Acetaminophen 325 Mg Tablet) 650 mg PO Q6H PRN PRN Reason: Mild/Mod Pain Or Temp >/= 101 Last Admin: 01/26/25 16:33 Dose: 650 mg Albuterol/Ipratropium (Ipratropium-Albuterol 3 Ml Neb) 3 ml INHALATION QID.RESPIRATORY KELSEA Last Admin: 01/27/25 11:30 Dose: 3 ml Aminophylline (Aminophylline 25 Mg/Ml Sdv 20 Ml) 25 mg IVP Q2M PRN PRN Reason: see dose instructions Stop: 01/28/25 06:05 Amiodarone HCl (Amiodarone 200 Mg Tablet) 200 mg PO DAILY KELSEA Last Admin: 01/27/25 04:38 Dose: 200 mg Aspirin (Aspirin 81 Mg Ec Tablet) 81 mg PO DAILY KELSEA Last Admin: 01/27/25 04:39 Dose: 81 mg Atorvastatin Calcium (Atorvastatin 40 Mg Tablet) 40 mg PO BEDTIME KELSEA Last Admin: 01/26/25 21:38 Dose: 40 mg Docusate Sodium (Docusate Sodium 100 Mg Capsule) 100 mg PO BID KELSEA Last Admin: 01/27/25 04:40 Dose: 100 mg Doxepin HCl (Doxepin 25 Mg Capsule) 25 mg PO BEDTIME KELSEA Last Admin: 01/26/25 21:37 Dose: 25 mg Duloxetine HCl (Duloxetine 60 Mg Capsule) 60 mg PO BID KELSEA Last Admin: 01/27/25 04:40 Dose: 60 mg Furosemide (Furosemide 10 Mg/Ml Sdv 10ml) 60 mg IVP Q8H KELSEA Last Admin: 01/27/25 04:40 Dose: 60 mg Gabapentin (Gabapentin 300 Mg Capsule) 300 mg PO BID KELSEA Last Admin: 01/27/25 04:40 Dose: 300 mg Glucagon (Glucagon 1 Mg/Ml Kit 1 Ml) 1 mg IM ONCE PRN; Protocol PRN Reason: Adult Acute Hypoglycemia Nursing Prot. Hydralazine HCl (Hydralazine 10 Mg Tablet) 25 mg PO TID [facility] Dextrose (D5w) 500 mls @ 0 mls/hr IV ONCE PRN; Protocol PRN Reason: Adult Acute Hypoglycemia Prot Dextrose (D10w) 125 mls @ 750 mls/hr IV PRN PRN; Protocol PRN Reason: Adult Acute Hypoglycemia Nursing Protocol Dextrose (D10w) 250 mls @ 1,000 mls/hr IV PRN PRN; Protocol PRN Reason: Adult Acute Hypoglycemia Nursing Protocol Insulin Glargine (Insulin Glargine 100 Units/1 Ml) 30 unit SUBCUT Q24H [facility] Last Admin: 01/27/25 11:45 Dose: 30 unit Insulin Human Lispro (Insulin Lispro 100 Unit/1 Ml) 0 unit SUBCUT WM&BEDTIME [facility]; Protocol Last Admin: 01/27/25 11:44 Dose: 10 unit Losartan Potassium (Losartan 50 Mg Tablet) 25 mg PO DAILY [facility] Last Admin: 01/27/25 04:39 Dose: 25 mg Metoprolol Tartrate (Metoprolol Tartrate 25 Mg Tablet) 25 mg PO BID@0900,2100 [facility] Last Admin: 01/27/25 11:44 Dose: 25 mg Morphine Sulfate (Morphine 4 Mg/Ml Sdv 1 Ml) 1 mg IVP Q4H PRN PRN Reason: SEVERE PAIN Naloxone HCl (Naloxone 0.4 Mg/Ml Sdv) 0.1 mg IVP Q2M PRN PRN Reason: OPIATERV Nitroglycerin (Nitroglycerin 0.4 Mg Sublingual Tablet) 0.4 mg SUBLINGUAL Q5M PRN PRN Reason: CHEST PAIN Stop: 01/28/25 06:05 Ondansetron HCl (Ondansetron 2 Mg/Ml Sdv 2 Ml) 4 mg IVP Q8H PRN PRN Reason: vomiting, or N/V if npo Ondansetron HCl (Ondansetron 2 Mg/Ml Sdv 2 Ml) 4 mg IVP Q2M PRN PRN Reason: NAUSEA Pantoprazole Sodium (Pantoprazole Dr 40 Mg Tablet) 40 mg PO DAILY [facility] Last Admin: 01/27/25 04:40 Dose: 40 mg Potassium Chloride (Potassium Chloride Er 20 Meq Tablet) 20 meq PO Q6H [facility] Last Admin: 01/27/25 11:44 Dose: 20 meq Rivaroxaban (Rivaroxaban 10 Mg Tablet) 20 mg PO BEDTIME [facility] Last Admin: 01/26/25 21:37 Dose: 20 mg Senna (Sennosides 8.6 Mg Tablet) 17.2 mg PO BEDTIME [facility] Last Admin: 01/26/25 21:36 Dose: 17.2 mg Vitals/I&O/Wt Last Vital Signs Temp 98.5 F 01/27/25 11:00 Pulse 70 01/27/25 11:33 Resp 16 01/27/25 11:32 BP 197/73 01/27/25 11:00 Pulse Ox 94 01/27/25 11:32 O2 Del Method Room Air 01/27/25 11:32 O2 Flow Rate 1 01/27/25 04:00 01/26/25 01/27/25 01/27/25 22:59 06:59 14:59 Intake Total 360 / 840 620 / 1460 Output Total 200 / 800 1000 / 1800 1300 / 1300 Balance 160 / 40 -380 / -340 -1300 / -1300 Weight last 48 hrs Weight 312 lb Weight 202 lb Weight 311 lb 9 oz Weight 304 lb Physical Exam 2 Narrative: GENERAL: The patient is alert and oriented times three. Not in any acute distress. HEENT: No significant pallor, icterus or lymphadenopathy.Oral cavity: There are no mucous membrane lesions. NECK: Trachea appears to be central. No masses noted. No JVD or thyromegaly appreciated. RESPIRATORY: Chest is symmetrical. No intercostals muscle retraction or any accessory muscle activation. There is no chest wall tenderness. Breath sounds are heard bilaterally. No rales or rhonchi heard. No evidence of any consolidation. BREASTS: Deferred. HEART: The heart sounds are normal. No S3 or S4. Short systolic murmur in the left upper border. No diastolic murmurs. No pericardial rub ABDOMEN: No vessel pulsations or distention. No tenderness. No organomegaly appreciated. Bowel sounds are normally heard. : Deferred. RECTAL: Deferred. Obese LYMPHATIC: No lymphadenopathy noted in the neck. EXTREMITIES: 2+ edema of both lower extremities. No cyanosis MUSCULOSKELETAL: No acute joint deformities or swelling SKIN: There are no significant rashes or ecchymosis NEUROPSYCHIATRIC: The patient is alert and oriented x3. Appears to be in a good mood. No tremors or rigidity noted. Urinary Catheter Management: Mcdowell: Cath Placed During This Visit: no Reason for Continuing Indwelling Catheter: Accurate Measurement of Urinary Output in Critically Ill Patients Data 01/28/25 04:26 01/28/25 04:26 Other Labs: Laboratory Last Values WBC 10.62 10^3/uL (3.29-11.43) 01/27/25 04:35 RBC 4.27 10^6/uL (3.85-5.65) 01/27/25 04:35 Hgb 11.60 g/dL (11.27-16.99) 01/27/25 04:35 Hct 37.5 % (36-47) 01/27/25 04:35 MCV 87.8 fl (85-98) 01/27/25 04:35 MCH 27.2 pg (27-33) 01/27/25 04:35 MCHC 30.9 g/dL (30-55) 01/27/25 04:35 RDW 15.6 % (12.1-15.1) H 01/27/25 04:35 Plt Count 232 10^3/cmm (157-399) 01/27/25 04:35 MPV 12.4 fL (7.4-10.4) H 01/27/25 04:35 Neut % (Auto) 62.5 % 01/27/25 04:35 Lymph % (Auto) 24.1 % 01/27/25 04:35 Baxter % (Auto) 9.0 % 01/27/25 04:35 Eos % (Auto) 3.4 % 01/27/25 04:35 Baso % (Auto) 0.6 % 01/27/25 04:35 Neut # (Auto) 6.64 10^3/uL (1.8-7.7) 01/27/25 04:35 Lymph # (Auto) 2.6 10^3/uL (0.8-4.8) 01/27/25 04:35 Baxter # (Auto) 1.0 10^3/uL (0.2-0.9) H 01/27/25 04:35 Eos # (Auto) 0.4 10^3/uL (0.0-0.8) 01/27/25 04:35 Baso # (Auto) 0.1 10^3/uL (0.0-0.1) 01/27/25 04:35 Nucleated RBC % (auto) 0 % 01/27/25 04:35 Nucleated RBCs # 0.0 /100WBC 01/27/25 04:35 Specimen Type Arterial 01/26/25 13:49 Sample Site Radial, left 01/26/25 13:49 ABG pH 7.36 (7.35-7.45) 01/26/25 13:49 ABG pCO2 49.8 mmHg (35-45) H 01/26/25 13:49 ABG pO2 53.6 mmHg (80.0-100.0) L 01/26/25 13:49 ABG PO2/FiO2 Ratio 255 01/26/25 13:49 ABG HCO3 28.4 mmol/L (22-26) H 01/26/25 13:49 ABG Base Excess 2.2 mmol/L (-2.0-2.0) H 01/26/25 13:49 José Test Pos 01/26/25 13:49 Hematocrit 40.0 % (37-47) 01/26/25 13:49 O2 Delivery Device Room air 01/26/25 13:49 FiO2 21.0 % 01/26/25 13:49 Glass Processing Worker ID Cak 01/26/25 13:49 Sodium 143 mmol/L (136-145) 01/27/25 04:35 Potassium 4.3 mmol/L (3.5-5.1) 01/27/25 04:35 Chloride 106 mmol/L (98-107) 01/27/25 04:35 Carbon Dioxide 29 mmol/L (22-29) 01/27/25 04:35 Anion Gap 12.3 (5-19) 01/27/25 04:35 BUN 19 mg/dL (8-23) 01/27/25 04:35 Creatinine 1.1 mg/dL (0.5-0.9) H 01/27/25 04:35 GFR Calculation 50.7 mL/min (90-130) L 01/27/25 04:35 Glucose 150 mg/dL (65-115) H 01/27/25 04:35 POC Glucose 303 mg/dL (70-110) H 01/27/25 10:56 Calculated Osmolality 301 mOsm/kg (285-295) H 01/27/25 04:35 Calcium 7.6 mg/dL (8.5-10.5) L 01/27/25 04:35 Phosphorus 4.2 mg/dL (2.5-4.5) 01/27/25 04:35 Magnesium 2.0 mg/dL (1.7-2.3) 01/27/25 04:35 Total Bilirubin 0.3 mg/dL (0.15-1.2) 01/27/25 04:35 AST 9 U/L (0-32) 01/27/25 04:35 ALT 9 U/L (0-33) 01/27/25 04:35 Alkaline Phosphatase 107 U/L (35-105) H 01/27/25 04:35 Troponin T Baseline 36 ng/L (0-10) H 01/25/25 16:47 Troponin T 120 Minute 39.31 ng/L (0-10) H 01/25/25 19:46 Delta Troponin T 3.31 ABS# (0-10) 01/25/25 19:46 Troponin T Hi Sens 6Hr 53.06 ng/L (0-10) H 01/25/25 23:17 Troponin T Hi Sens 6Hr Delta 17.06 ng/L (0-12) H* 01/25/25 23:17 NT-Pro-B Natriuret Pep 5716 pg/mL (0-125) H 01/27/25 04:35 Total Protein 4.9 g/dL (6.6-8.7) L 01/27/25 04:35 Albumin 2.2 g/dL (3.5-5.2) L 01/27/25 04:35 Globulin 2.7 g/dL (1.3-4.6) 01/27/25 04:35 TSH 3.11 uIU/mL (0.27-4.20) 01/27/25 04:35 Free T4 0.94 ng/dL (0.82-1.77) 01/27/25 04:35 Free T3 1.7 PG/ML (2.0-4.4) L 01/27/25 04:35 A&P Assessment and plan 1. Elevated troponin: It could be related to type II OH. Possibility of coronary ischemia/injury causing this cannot be excluded. Patient had a Myocardial perfusion imaging. Was found to have a small area of possible mena-infarction ischemia. 2. Chest pain, unspecified type: This patient has some vague chest symptoms. Currently resolved. Possibly related to the heart failure. 3. Acute on chronic diastolic heart failure: Continue on the IV diuretics for the time being. 4. Intermittent atrial fibrillation: Patient currently seems to be in sinus rhythm. May continue with current medications. Continue on the subcu Lovenox. 5. Chronic anticoagulation: Patient may be restarted on the Eliquis 6. Benign hypertension: Since the blood pressure is in the normal range, patient may not require any medication changes at this time. Advised to continue on the current measures. 7. Type 2 diabetes mellitus with hyperglycemia, with long-term current use of insulin: Diabetes seems to be fairly under control. Advised to continue on the current measures. 8. Bilateral leg edema: The etiology is unclear. The morbid obesity, dependency, heart failure, intra- abdominal pathology, etc. are considerations. Venous insufficiency also is accountability factor. Plan: The Myocardial perfusion imaging of elsewhere discussed with the patient. The patient is not having chest pain or any specific cardiac symptoms. Most likely her symptoms are related to the heart failure. In order to further evaluate her coronary status, she requires a cardiac catheterization. However the ischemia appears to be very small and the patient is fairly stable at this point. So a shared decision was made not to undergo any further testings for the coronary disease at this time Patient may benefit from a CT of the abdomen to evaluate for any intra-abdominal pathology. Also consider venous Doppler examination to evaluate for any venous insufficiency. Based on the results of the above tests and the patient's clinical progress, further recommendations will be made. PDMP PDMP Reviewed: Not Reviewed Attestations 2 Medical Necessity Statement*: Deferred to the primary Coding Level of Care Code 97764 Diagnoses Elevated troponin R79.89 Chest pain, unspecified type R07.9 Chest pain type: unspecified Acute on chronic diastolic heart failure I50.33 Intermittent atrial fibrillation I48.0 Chronic anticoagulation Z79.01 Benign hypertension I10 Type 2 diabetes mellitus with hyperglycemia, with long-term current use of insulin E11.65; Z79.4 Diabetes mellitus type: type 2 Bilateral leg edema R60.0
--- NOTE | 2025-01-27 14:42 | CTR_ITS ---
PROCEDURE INFORMATION: Exam: CT Abdomen And Pelvis Without Contrast Exam date and time: 01/27/2025 3:22 PM Age: 59 years old Clinical indication: Other: Anasarca TECHNIQUE: Imaging protocol: Computed tomography of the abdomen and pelvis without contrast. Radiation optimization: All CT scans at this facility use at least one of these dose optimization techniques: automated exposure control; mA and/or kV adjustment per patient size (includes targeted exams where dose is matched to clinical indication); or iterative reconstruction. COMPARISON: CT abdomen pelvis w con* [id number] 11/05/2023 12:31 PM RADIATION DOSE METRICS: Total DLP (mGy-cm): 1288.4 FINDINGS: Tubes, catheters and devices: A catheter is located in the bladder. Lungs: 5 mm benign subpleural calcification in the right lower lobe. Pleural spaces: Small amount of left pleural fluid. Liver: Normal. No mass. Gallbladder and biliary ducts: The gallbladder is normal. There is no evidence of biliary ductal dilation. Pancreas: The pancreas is normal. No mass. Spleen: Unchanged calcified granulomas in the spleen. Adrenal glands: The adrenal glands are normal. Kidneys and ureters: Unchanged ventral rotation of the right kidney. No hydronephrosis or mass. Mild perirenal fat stranding, not significantly changed. Stomach and bowel: Bowel caliber is normal. No paracolonic inflammatory changes. Appendix: No evidence of appendicitis. Intraperitoneal space: No free intraperitoneal fluid or gas. Vasculature: Aortic caliber is normal. Lymph nodes: No lymph node enlargement. Urinary bladder: The bladder is partially contracted, but demonstrates moderate diffuse mural thickening. Reproductive: Previous hysterectomy. No adnexal mass identified. Bones/joints: Unremarkable. No acute fracture. Soft tissues: Moderate edema throughout the deep subcutaneous fat, most marked in the left mid abdomen. CT/CT abdomen pelvis wo con [id number] IMPRESSION: 1. Moderate edema throughout the deep subcutaneous fat, most marked in the left mid abdomen. 2. The bladder is partially contracted, but demonstrates moderate diffuse mural thickening. Findings should be correlated for the presence of cystitis. 3. No acute disease otherwise identified.
--- NOTE | 2025-01-27 17:24 | NMCV_ITS ---
NM lynette perf SPECT r/s* [id number] Soni Head Age: 59 Gender: F : 1965 Exam Date: 01/27/2025 07:01 Ordering Phys: Theodora Valladares MD ([email or web address]) Technologist: REG Flores Exam Location: [facility] Indications: CP STRESS TEST Please see separate stress test report in [facility] for full findings IMAGE PROTOCOL Rest/Stress 1 Lexiscan Day Radiopharmaceutical Dose (mCi) Administration Site Administered by Rest: Tc-99m 10.5 IV REG Flores Sestamibi Stress:Tc-99m 33 IV REG Correia Sestamibi Rest: 27-Jan-2025 60 Discovery 630 Stress: 27-Jan-2025 30 Discovery 630 0.4mg Lexiscan. Supine position only as patient was unable to lay prone. SPECT RESULTS Technical Quality: Good Raw Data Analysis: Soft tissue attenuation Image Corrections: No attenuation or motion correction applied Summed Stress Score: 8 Summed Rest Score: 10 Summed Difference Score: 1 PERFUSION FINDINGS Moderate area of moderate to severely decreased tracer uptake involving the basal, mid and apical inferior wall and segments with slight reversibility in the basal inferior wall region. Small area of slightly decreased tracer uptake in the mid inferolateral segment with no reversibility. FUNCTIONAL RESULTS (calculated via Gated SPECT) Stress Image LV EF (%): 58 Stress EDV (mL):153 TID: 0.97 Stress ESV (mL):64 FUNCTIONAL FINDINGS: Segmental wall motion analysis revealing no gross wall motion abnormalities IMPRESSIONS 1. Myocardial perfusion imaging revealing moderate area persistent decreased tracer uptake involving the inferior wall and inferolateral regions with a subtle reversibility suggesting myocardial scarring in the distribution of the right coronary artery with a subtle area of possible mena-infarction ischemia. 2. Normal LV ejection fraction of 58%. 3. LV wall motion analysis revealing no gross wall motion abnormalities. 4. Slightly dilated LV cavity with an end-systolic volume of [address] Theodora Valladares MD FACC (Electronically Signed) Final Date: 27 January 2025 12:26 S
[2025-01-27] MEDS: cefTRIAXone 1,000 mg SDV 1000 MG IVP (17:47)
[2025-01-28] VITALS (12 sets, daily range): BP systolic 116–185; BP diastolic 68–77; PULSE 58–90; RESP 15–22; TEMP 36.6–37.4; O2SAT 90–98; BMI 47.1
[2025-01-28 05:18] LABS: Hematocrit 38.5 % (36-47); Hemoglobin 12.10 g/dL (11.27-16.99); Mean Corpuscular HGB Conc 31.4 g/dL (30-55); Mean Corpuscular Hemoglobin 27.4 pg (27-33); Mean Corpuscular Volume 87.1 fl (85-98); Nucleated Red Blood Cells % 0 %; Platelet Count 234 10^3/cmm (157-399); Red Blood Count 4.42 10^6/uL (3.85-5.65); White Blood Count 10.89 10^3/uL (3.29-11.43)
[2025-01-28 05:44] LABS: Alanine Aminotransferase 11 U/L (0-33); Albumin Level 2.2 g/dL (3.5-5.2); Alkaline Phosphatase 115 U/L (35-105); Anion Gap 15.0 (5-19); Aspartate Amino Transferase 11 U/L (0-32); Blood Urea Nitrogen 19 mg/dL (8-23); Calcium 7.8 mg/dL (8.5-10.5); Carbon Dioxide 27 mmol/L (22-29); Chloride 102 mmol/L (98-107); Creatinine Clr Calc Pharmacy 96.1067; Globulin 2.8 g/dL (1.3-4.6); Glucose 192 mg/dL (65-115); Magnesium 2.0 mg/dL (1.7-2.3); Osmolality Calculated 295 mOsm/kg (285-295); Potassium 5.0 mmol/L (3.5-5.1); Sodium 139 mmol/L (136-145); Total Protein 5.0 g/dL (6.6-8.7)
[2025-01-28 05:46] LABS: NT Pro B Type Natriuretic Pept 6997 pg/mL (0-125)
[2025-01-28] MEDS: FUROsemide 10 mg/mL SDV 10mL 60 MG IVP ×2 (05:52→14:45)
[2025-01-28] MEDS: insulin glargine 100 units/1 mL 30 UNIT SUBCUT (08:35)
--- NOTE | 2025-01-28 14:07 | PM.PN ---
Subjective Subjective: Patient had a CT of the abdomen yesterday. She was found to have no intra-abdominal pathology. Significant edema of the abdominal wall was noted. Medications: Medication Review Details: Current Medications Acetaminophen (Acetaminophen 325 Mg Tablet) 650 mg PO Q6H PRN PRN Reason: Mild/Mod Pain Or Temp >/= 101 Last Admin: 01/26/25 16:33 Dose: 650 mg Albuterol/Ipratropium (Ipratropium-Albuterol 3 Ml Neb) 3 ml INHALATION QID.RESPIRATORY KELSEA Last Admin: 01/28/25 11:10 Dose: 3 ml Amiodarone HCl (Amiodarone 200 Mg Tablet) 200 mg PO DAILY KELSEA Last Admin: 01/28/25 05:40 Dose: 200 mg Aspirin (Aspirin 81 Mg Ec Tablet) 81 mg PO DAILY KELSEA Last Admin: 01/28/25 05:46 Dose: 81 mg Atorvastatin Calcium (Atorvastatin 40 Mg Tablet) 40 mg PO BEDTIME KELSEA Last Admin: 01/27/25 21:14 Dose: 40 mg Ceftriaxone Sodium (Ceftriaxone 1,000 Mg Sdv) 1,000 mg IVP Q24H KELSEA; Protocol Last Admin: 01/27/25 17:47 Dose: 1,000 mg Docusate Sodium (Docusate Sodium 100 Mg Capsule) 100 mg PO BID KELSEA Last Admin: 01/28/25 05:39 Dose: 100 mg Doxepin HCl (Doxepin 25 Mg Capsule) 25 mg PO BEDTIME KELSEA Last Admin: 01/27/25 21:14 Dose: 25 mg Duloxetine HCl (Duloxetine 60 Mg Capsule) 60 mg PO BID KELSEA Last Admin: 01/28/25 05:52 Dose: 60 mg Furosemide (Furosemide 10 Mg/Ml Sdv 10ml) 60 mg IVP Q8H KELSEA Last Admin: 01/28/25 05:52 Dose: 60 mg Gabapentin (Gabapentin 300 Mg Capsule) 300 mg PO BID KELSEA Last Admin: 01/28/25 05:40 Dose: 300 mg Glucagon (Glucagon 1 Mg/Ml Kit 1 Ml) 1 mg IM ONCE PRN; Protocol PRN Reason: Adult Acute Hypoglycemia Nursing Prot. Hydralazine HCl (Hydralazine 10 Mg Tablet) 25 mg PO TID KELSEA Last Admin: 01/28/25 05:40 Dose: 25 mg Dextrose (D5w) 500 mls @ 0 mls/hr IV ONCE PRN; Protocol PRN Reason: Adult Acute Hypoglycemia Prot Dextrose (D10w) 125 mls @ 750 mls/hr IV PRN PRN; Protocol PRN Reason: Adult Acute Hypoglycemia Nursing Protocol Dextrose (D10w) 250 mls @ 1,000 mls/hr IV PRN PRN; Protocol PRN Reason: Adult Acute Hypoglycemia Nursing Protocol Insulin Glargine (Insulin Glargine 100 Units/1 Ml) 30 unit SUBCUT Q24H [facility] Last Admin: 01/28/25 08:35 Dose: 30 unit Insulin Human Lispro (Insulin Lispro 100 Unit/1 Ml) 0 unit SUBCUT WM&BEDTIME [facility]; Protocol Last Admin: 01/28/25 08:36 Dose: 6 unit Losartan Potassium (Losartan 50 Mg Tablet) 50 mg PO DAILY [facility] Metoprolol Tartrate (Metoprolol Tartrate 25 Mg Tablet) 25 mg PO BID@0900,2100 [facility] Last Admin: 01/28/25 08:35 Dose: 25 mg Morphine Sulfate (Morphine 4 Mg/Ml Sdv 1 Ml) 1 mg IVP Q4H PRN PRN Reason: SEVERE PAIN Naloxone HCl (Naloxone 0.4 Mg/Ml Sdv) 0.1 mg IVP Q2M PRN PRN Reason: OPIATERV Ondansetron HCl (Ondansetron 2 Mg/Ml Sdv 2 Ml) 4 mg IVP Q8H PRN PRN Reason: vomiting, or N/V if npo Ondansetron HCl (Ondansetron 2 Mg/Ml Sdv 2 Ml) 4 mg IVP Q2M PRN PRN Reason: NAUSEA Pantoprazole Sodium (Pantoprazole Dr 40 Mg Tablet) 40 mg PO DAILY [facility] Last Admin: 01/28/25 05:39 Dose: 40 mg Potassium Chloride (Potassium Chloride Er 20 Meq Tablet) 20 meq PO Q6H [facility] Last Admin: 01/28/25 08:35 Dose: 20 meq Rivaroxaban (Rivaroxaban 10 Mg Tablet) 20 mg PO BEDTIME [facility] Last Admin: 01/27/25 21:11 Dose: 20 mg Senna (Sennosides 8.6 Mg Tablet) 17.2 mg PO BEDTIME [facility] Last Admin: 01/27/25 21:14 Dose: 17.2 mg Vitals/I&O/Wt Last Vital Signs Temp 98.4 F 01/28/25 11:41 Pulse 58 L 01/28/25 11:41 Resp 17 01/28/25 11:41 BP 171/69 01/28/25 11:41 Pulse Ox 92 01/28/25 11:41 O2 Del Method Room Air 01/28/25 11:41 O2 Flow Rate 2 01/28/25 00:00 01/27/25 01/28/25 01/28/25 22:59 06:59 14:59 Intake Total 240 / 480 240 / 720 720 / 720 Output Total 1800 / 3100 300 / 3400 950 / 950 Balance -1560 / -2620 -60 / -2680 -230 / -230 Weight last 48 hrs Weight 301 lb 1 oz Weight 312 lb Physical Exam Narrative: GENERAL: The patient is alert and oriented times three. Not in any acute distress. HEENT: No significant pallor, icterus or lymphadenopathy.Oral cavity: There are no mucous membrane lesions. NECK: Trachea appears to be central. No masses noted. No JVD or thyromegaly appreciated. RESPIRATORY: Chest is symmetrical. No intercostals muscle retraction or any accessory muscle activation. There is no chest wall tenderness. Breath sounds are heard bilaterally. No rales or rhonchi heard. No evidence of any consolidation. BREASTS: Deferred. HEART: The heart sounds are normal. No S3 or S4. Short systolic murmur in the left upper border. No diastolic murmurs. No pericardial rub ABDOMEN: No vessel pulsations or distention. No tenderness. No organomegaly appreciated. Bowel sounds are normally heard. : Deferred. RECTAL: Deferred. Obese LYMPHATIC: No lymphadenopathy noted in the neck. EXTREMITIES: 2+ edema of both lower extremities. No cyanosis MUSCULOSKELETAL: No acute joint deformities or swelling SKIN: There are no significant rashes or ecchymosis NEUROPSYCHIATRIC: The patient is alert and oriented x3. Appears to be in a good mood. No tremors or rigidity noted. Urinary Catheter Management: Mcdowell: Cath Placed During This Visit: no Reason for Continuing Indwelling Catheter: Accurate Measurement of Urinary Output in Critically Ill Patients Data 01/28/25 04:26 01/28/25 04:26 Other Labs: Laboratory Last Values WBC 10.89 10^3/uL (3.29-11.43) 01/28/25 04:26 RBC 4.42 10^6/uL (3.85-5.65) 01/28/25 04:26 Hgb 12.10 g/dL (11.27-16.99) 01/28/25 04:26 Hct 38.5 % (36-47) 01/28/25 04:26 MCV 87.1 fl (85-98) 01/28/25 04:26 MCH 27.4 pg (27-33) 01/28/25 04:26 MCHC 31.4 g/dL (30-55) 01/28/25 04:26 RDW 15.3 % (12.1-15.1) H 01/28/25 04:26 Plt Count 234 10^3/cmm (157-399) 01/28/25 04:26 MPV 11.9 fL (7.4-10.4) H 01/28/25 04:26 Neut % (Auto) 64.6 % 01/28/25 04:26 Lymph % (Auto) 22.5 % 01/28/25 04:26 [place] % (Auto) 8.7 % 01/28/25 04:26 Eos % (Auto) 3.2 % 01/28/25 04:26 Baso % (Auto) 0.7 % 01/28/25 04:26 Neut # (Auto) 7.03 10^3/uL (1.8-7.7) 01/28/25 04:26 Lymph # (Auto) 2.5 10^3/uL (0.8-4.8) 01/28/25 04:26 [place] # (Auto) 1.0 10^3/uL (0.2-0.9) H 01/28/25 04:26 Eos # (Auto) 0.4 10^3/uL (0.0-0.8) 01/28/25 04:26 Baso # (Auto) 0.1 10^3/uL (0.0-0.1) 01/28/25 04:26 Nucleated RBC % (auto) 0 % 01/28/25 04:26 Nucleated RBCs # 0.0 /100WBC 01/28/25 04:26 Specimen Type Arterial 01/26/25 13:49 Sample Site Radial, left 01/26/25 13:49 ABG pH 7.36 (7.35-7.45) 01/26/25 13:49 ABG pCO2 49.8 mmHg (35-45) H 01/26/25 13:49 ABG pO2 53.6 mmHg (80.0-100.0) L 01/26/25 13:49 ABG PO2/FiO2 Ratio 255 01/26/25 13:49 ABG HCO3 28.4 mmol/L (22-26) H 01/26/25 13:49 ABG Base Excess 2.2 mmol/L (-2.0-2.0) H 01/26/25 13:49 José Test Pos 01/26/25 13:49 Hematocrit 40.0 % (37-47) 01/26/25 13:49 O2 Delivery Device Room air 01/26/25 13:49 FiO2 21.0 % 01/26/25 13:49 [employer]iler [employer]er ID Cak 01/26/25 13:49 Sodium 139 mmol/L (136-145) 01/28/25 04:26 Potassium 5.0 mmol/L (3.5-5.1) 01/28/25 04:26 Chloride 102 mmol/L (98-107) 01/28/25 04:26 Carbon Dioxide 27 mmol/L (22-29) 01/28/25 04:26 Anion Gap 15.0 (5-19) 01/28/25 04:26 BUN 19 mg/dL (8-23) 01/28/25 04:26 Creatinine 0.9 mg/dL (0.5-0.9) 01/28/25 04:26 GFR Calculation 63.9 mL/min (90-130) L 01/28/25 04:26 Glucose 192 mg/dL (65-115) H 01/28/25 04:26 POC Glucose 277 mg/dL (70-110) H 01/28/25 10:53 Calculated Osmolality 295 mOsm/kg (285-295) 01/28/25 04:26 Calcium 7.8 mg/dL (8.5-10.5) L 01/28/25 04:26 Phosphorus 3.9 mg/dL (2.5-4.5) 01/28/25 04:26 Magnesium 2.0 mg/dL (1.7-2.3) 01/28/25 04:26 Total Bilirubin 0.3 mg/dL (0.15-1.2) 01/28/25 04:26 AST 11 U/L (0-32) 01/28/25 04:26 ALT 11 U/L (0-33) 01/28/25 04:26 Alkaline Phosphatase 115 U/L (35-105) H 01/28/25 04:26 Troponin T Baseline 36 ng/L (0-10) H 01/25/25 16:47 Troponin T 120 Minute 39.31 ng/L (0-10) H 01/25/25 19:46 Delta Troponin T 3.31 ABS# (0-10) 01/25/25 19:46 Troponin T Hi Sens 6Hr 53.06 ng/L (0-10) H 01/25/25 23:17 Troponin T Hi Sens 6Hr Delta 17.06 ng/L (0-12) H* 01/25/25 23:17 NT-Pro-B Natriuret Pep 6997 pg/mL (0-125) H 01/28/25 04:26 Total Protein 5.0 g/dL (6.6-8.7) L 01/28/25 04:26 Albumin 2.2 g/dL (3.5-5.2) L 01/28/25 04:26 Globulin 2.8 g/dL (1.3-4.6) 01/28/25 04:26 TSH 3.11 uIU/mL (0.27-4.20) 01/27/25 04:35 Free T4 0.94 ng/dL (0.82-1.77) 01/27/25 04:35 Free T3 1.7 PG/ML (2.0-4.4) L 01/27/25 04:35 A&P Assessment and plan 1. Elevated troponin: Most likely related to type II HI. At this point, the patient may not require any further investigations. May continue the current measures. The results of the Myocardial perfusion imaging were once again discussed 2. Acute on chronic diastolic heart failure: Continue on the IV diuretics for the time being. May switch to p.o. Lasix at the time of the discharge. 3. Chest pain, unspecified type: Currently resolved. May continue on the current management. 4. Intermittent atrial fibrillation: Patient currently seems to be in sinus rhythm. May continue with current medications. Continue on the subcu Lovenox. 5. Chronic anticoagulation: Patient may be restarted on the Eliquis 6. Benign hypertension: Since the blood pressure is in the normal range, patient may not require any medication changes at this time. Advised to continue on the current measures. 7. Type 2 diabetes mellitus with hyperglycemia, with long-term current use of insulin: Diabetes seems to be fairly under control. Advised to continue on the current measures. 8. Bilateral leg edema: The etiology is unclear. The morbid obesity, dependency, heart failure, intra-abdominal pathology, etc. are considerations. Venous insufficiency also is accountability factor. Plan: Bilateral lower extremity venous Doppler examination May continue on the diuretics, switch to p.o. when she is ready to be discharged Based on the clinical progress, further recommendations will be made. PDMP PDMP Reviewed: Not Reviewed Attestations Medical Necessity Statement*: Deferred to the primary Coding Level of Care Code 05420 Diagnoses Elevated troponin R79.89 Acute on chronic diastolic heart failure I50.33 Chest pain, unspecified type R07.9 Chest pain type: unspecified Intermittent atrial fibrillation I48.0 Chronic anticoagulation Z79.01 Benign hypertension I10 Type 2 diabetes mellitus with hyperglycemia, with long-term current use of insulin E11.65; Z79.4 Diabetes mellitus type: type 2 Bilateral leg edema R60.0
--- NOTE | 2025-01-28 15:57 | P.PN_ITS ---
Subjective 2 Subjective: Patient was seen this morning, her edema is improving, no abdominal pain, anasarca is improving Vitals/I&O/Wt Last Vital Signs Temp 97.9 F 01/28/25 15:08 Pulse 69 01/28/25 15:35 Resp 18 01/28/25 15:35 BP 169/73 01/28/25 15:08 Pulse Ox 91 01/28/25 15:35 O2 Del Method Room Air 01/28/25 15:35 O2 Flow Rate 2 01/28/25 00:00 01/28/25 01/28/25 01/28/25 06:59 14:59 22:59 Intake Total 240 / 720 720 / 720 Output Total 300 / 3400 950 / 950 Balance -60 / -2680 -230 / -230 Weight last 48 hrs Weight 136.56 kg Weight 141.521 kg Physical Exam 2 Const: COMMON NORMALS: no acute distress and patient oriented x3 Resp: COMMON NORMALS: normal respiratory effort, No retractions, No use of accessory muscles and clear to auscultation bilaterally AUSCULTATION: clear to auscultation bilaterally Cardio: COMMON NORMALS: regular rate, regular rhythm, S1 normal heart sound present and S2 normal heart sound present RATE: regular rate RHYTHM: r egular rhythm HEART SOUNDS: S1 normal heart sound present and S2 normal heart sound present GI: COMMON NORMALS: Normal to inspection, nondistended, normoactive bowel sounds present and non-tender Extremity: COMMON NORMALS: no pedal edema Neuro: COMMON NORMALS: patient oriented x3 Psych: COMMON NORMALS: mental status grossly normal Urinary Catheter Management: Mcdowell: Cath Placed During This Visit: no Reason for Continuing Indwelling Catheter: Accurate Measurement of Urinary Output in Critically Ill Patients Data 01/28/25 04:26 01/28/25 04:26 A&P Assessment and plan 1. Congestive heart failure: 2. Chronic anticoagulation: 3. Dyspnea: 4. Edema: Plan: #1 Acute on chronic diastolic heart failure exacerbation - Place Mcdowell catheter - 60 IV twice daily - Monitor intake and output - Monitor urine output, monitor creatinine - Cardiology consulted, status post stress testing today #2 Accelerated hypertension -Add hydralazine - Continue, losartan #3 Diabetes type 2 - Lantus 30 units subcu daily - Insulin sliding scale #4 COPD not in exacerbation #5 NSTEMI - No chest pain complaints - Serial EKGs, serial troponins, telemetry monitoring - Aspirin, statin, beta-janie #6 dizziness -Reports dizziness over the last few months -No focal neurologic deficits, -CT head 01/24/2025 associated with fall -FINDINGS: Brain: No acute intracranial hemorrhage. No midline shift or mass effect. No acute territorial infarct. Cerebral ventricles: The ventricles and sulci are commensurate with age. Paranasal sinuses: Visualized sinuses are unremarkable. No fluid levels. Mastoid air cells: Visualized mastoid air cells are well aerated. Bones: Unremarkable. No acute fracture. Soft tissues: Unremarkable. MRI brain 12/20/2024 MR/MR pituitary wo/w con* [id number] IMPRESSION: 1. Findings are nonspecific and may be incidental but can be seen with lymphocytic apophysitis, occult adenoma, and possibly primary hypothyroidism with pituitary hyperplasia. Recommend correlation with pituitary and endocrine studies and endocrine consult. Recommend 6 to 12-month follow-up MRI pituitary to confirm stability 2. New small focus of restricted diffusion along the anterior LEFT temporal lobe suspicious for a small focus of ischemia measuring 6 mm. This is new from previous. CTA head and neck CT/CT angio neck [id number] IMPRESSION: 1. No significant cervical ICA stenosis bilaterally. Mild atheromatous plaque LEFT carotid bulb. 2. LEFT dominant vertebral artery is patent to the basilar junction. Only a tiny hypoplastic RIGHT vertebral artery. 3. Enlarged multinodular thyroid. This can be followed up with ultrasound. -Could be associated with her Charcot foot disease Plan - Continue aspirin, statin - Continue Xarelto - PT OT GI and DVT prophylaxis in place PDMP PDMP Reviewed: Not Reviewed Attestations 2 Medical Necessity Statement*: Patient requires hospitalization for CHF exacerbation requiring IV diuresis Diagnoses Congestive heart failure I50.9 Chronic anticoagulation Z79.01 Dyspnea R06.00 Edema R60.9
[2025-01-28 16:47] LABS: Anion Gap 15.3 (5-19); Blood Urea Nitrogen 22 mg/dL (8-23); Calcium 8.0 mg/dL (8.5-10.5); Carbon Dioxide 27 mmol/L (22-29); Chloride 98 mmol/L (98-107); Creatinine Clr Calc Pharmacy 86.4960; Glucose 349 mg/dL (65-115); Osmolality Calculated 299 mOsm/kg (285-295); Potassium 4.3 mmol/L (3.5-5.1); Sodium 136 mmol/L (136-145)
[2025-01-28] MEDS: cefTRIAXone 1,000 mg SDV 1000 MG IVP (17:12)
[2025-01-29] VITALS (7 sets, daily range): BP systolic 167–189; BP diastolic 68–79; PULSE 58–81; RESP 14–18; TEMP 36.8–37.2; O2SAT 90–95
[2025-01-29] MEDS: FUROsemide 10 mg/mL SDV 10mL 40 MG IVP ×2 (00:04→07:11)
[2025-01-29 04:54] LABS: Hematocrit 38.5 % (36-47); Hemoglobin 12.10 g/dL (11.27-16.99); Mean Corpuscular HGB Conc 31.4 g/dL (30-55); Mean Corpuscular Hemoglobin 26.9 pg (27-33); Mean Corpuscular Volume 85.7 fl (85-98); Nucleated Red Blood Cells % 0 %; Platelet Count 241 10^3/cmm (157-399); Red Blood Count 4.49 10^6/uL (3.85-5.65); White Blood Count 10.78 10^3/uL (3.29-11.43)
[2025-01-29 05:17] LABS: Alanine Aminotransferase 10 U/L (0-33); Albumin Level 2.3 g/dL (3.5-5.2); Alkaline Phosphatase 112 U/L (35-105); Anion Gap 13.5 (5-19); Aspartate Amino Transferase 9 U/L (0-32); Blood Urea Nitrogen 23 mg/dL (8-23); Calcium 8.0 mg/dL (8.5-10.5); Carbon Dioxide 30 mmol/L (22-29); Chloride 98 mmol/L (98-107); Creatinine Clr Calc Pharmacy 86.4960; Globulin 3.1 g/dL (1.3-4.6); Glucose 237 mg/dL (65-115); Magnesium 1.8 mg/dL (1.7-2.3); Osmolality Calculated 295 mOsm/kg (285-295); Potassium 4.5 mmol/L (3.5-5.1); Sodium 137 mmol/L (136-145); Total Protein 5.4 g/dL (6.6-8.7)
[2025-01-29 05:25] LABS: NT Pro B Type Natriuretic Pept 7299 pg/mL (0-125)
[2025-01-29] MEDS: insulin glargine 100 units/1 mL 30 UNIT SUBCUT (08:06)
--- NOTE | 2025-01-29 09:04 | P.PN_ITS ---
Subjective 2 Subjective: Patient is feeling much better. Continues to have the leg swelling. Medications: Medication Review Details: Current Medications Acetaminophen (Acetaminophen 325 Mg Tablet) 650 mg PO Q6H PRN PRN Reason: Mild/Mod Pain Or Temp >/= 101 Last Admin: 01/29/25 03:52 Dose: 650 mg Albuterol/Ipratropium (Ipratropium-Albuterol 3 Ml Neb) 3 ml INHALATION QID.RESPIRATORY KELSEA Last Admin: 01/29/25 08:59 Dose: 3 ml Amiodarone HCl (Amiodarone 200 Mg Tablet) 200 mg PO DAILY KELSEA Last Admin: 01/29/25 05:25 Dose: 200 mg Aspirin (Aspirin 81 Mg Ec Tablet) 81 mg PO DAILY KELSEA Last Admin: 01/29/25 05:26 Dose: 81 mg Atorvastatin Calcium (Atorvastatin 40 Mg Tablet) 40 mg PO BEDTIME KELSEA Last Admin: 01/28/25 21:16 Dose: 40 mg Ceftriaxone Sodium (Ceftriaxone 1,000 Mg Sdv) 1,000 mg IVP Q24H [facility]; Protocol Last Admin: 01/28/25 17:12 Dose: 1,000 mg Docusate Sodium (Docusate Sodium 100 Mg Capsule) 100 mg PO BID [facility] Last Admin: 01/29/25 05:26 Dose: Not Given Doxepin HCl (Doxepin 25 Mg Capsule) 25 mg PO BEDTIME KELSEA Last Admin: 01/28/25 21:17 Dose: 25 mg Duloxetine HCl (Duloxetine 60 Mg Capsule) 60 mg PO BID [facility] Last Admin: 01/29/25 05:26 Dose: 60 mg Furosemide (Furosemide 10 Mg/Ml Sdv 10ml) 40 mg IVP Q8H [facility] Last Admin: 01/29/25 07:11 Dose: 40 mg Gabapentin (Gabapentin 300 Mg Capsule) 300 mg PO BID [facility] Last Admin: 01/29/25 05:26 Dose: 300 mg Glucagon (Glucagon 1 Mg/Ml Kit 1 Ml) 1 mg IM ONCE PRN; Protocol PRN Reason: Adult Acute Hypoglycemia Nursing Prot. Hydralazine HCl (Hydralazine 10 Mg Tablet) 25 mg PO TID [facility] Last Admin: 01/29/25 05:26 Dose: 25 mg Dextrose (D5w) 500 mls @ 0 mls/hr IV ONCE PRN; Protocol PRN Reason: Adult Acute Hypoglycemia Prot Dextrose (D10w) 125 mls @ 750 mls/hr IV PRN PRN; Protocol PRN Reason: Adult Acute Hypoglycemia Nursing Protocol Dextrose (D10w) 250 mls @ 1,000 mls/hr IV PRN PRN; Protocol PRN Reason: Adult Acute Hypoglycemia Nursing Protocol Insulin Glargine (Insulin Glargine 100 Units/1 Ml) 30 unit SUBCUT Q24H [facility] Last Admin: 01/29/25 08:06 Dose: 30 unit Insulin Human Lispro (Insulin Lispro 100 Unit/1 Ml) 0 unit SUBCUT WM&BEDTIME [facility]; Protocol Last Admin: 01/29/25 08:05 Dose: 6 unit Losartan Potassium (Losartan 50 Mg Tablet) 50 mg PO BID [facility] Metoprolol Tartrate (Metoprolol Tartrate 25 Mg Tablet) 25 mg PO BID@0900,2100 [facility] Last Admin: 01/29/25 08:06 Dose: 25 mg Morphine Sulfate (Morphine 4 Mg/Ml Sdv 1 Ml) 1 mg IVP Q4H PRN PRN Reason: SEVERE PAIN Naloxone HCl (Naloxone 0.4 Mg/Ml Sdv) 0.1 mg IVP Q2M PRN PRN Reason: OPIATERV Ondansetron HCl (Ondansetron 2 Mg/Ml Sdv 2 Ml) 4 mg IVP Q8H PRN PRN Reason: vomiting, or N/V if npo Ondansetron HCl (Ondansetron 2 Mg/Ml Sdv 2 Ml) 4 mg IVP Q2M PRN PRN Reason: NAUSEA Pantoprazole Sodium (Pantoprazole Dr 40 Mg Tablet) 40 mg PO DAILY [facility] Last Admin: 01/29/25 05:27 Dose: 40 mg Potassium Chloride (Potassium Chloride Er 20 Meq Tablet) 20 meq PO Q8H [facility] Last Admin: 01/29/25 07:11 Dose: 20 meq Rivaroxaban (Rivaroxaban 10 Mg Tablet) 20 mg PO BEDTIME [facility] Last Admin: 01/28/25 21:18 Dose: 20 mg Senna (Sennosides 8.6 Mg Tablet) 17.2 mg PO BEDTIME [facility] Last Admin: 01/28/25 21:18 Dose: Not Given Vitals/I&O/Wt Last Vital Signs Temp 98.5 F 01/29/25 07:20 Pulse 58 L 01/29/25 08:59 Resp 18 01/29/25 08:59 BP 189/79 01/29/25 07:20 Pulse Ox 92 01/29/25 08:59 O2 Del Method Room Air 01/29/25 08:59 O2 Flow Rate 2 01/28/25 00:00 01/28/25 01/29/25 01/29/25 22:59 06:59 14:59 Intake Total 480 / 1200 960 / 2160 240 / 240 Output Total 1650 / 2600 2400 / 5000 1600 / 1600 Balance -1170 / -1400 -1440 / -2840 -1360 / -1360 Weight last 48 hrs Weight 301 lb Weight 301 lb 1 oz Physical Exam 2 Narrative: GENERAL: The patient is alert and oriented times three. Not in any acute distress. HEENT: No significant pallor, icterus or lymphadenopathy.Oral cavity: There are no mucous membrane lesions. NECK: Trachea appears to be central. No masses noted. No JVD or thyromegaly appreciated. RESPIRATORY: Chest is symmetrical. No intercostals muscle retraction or any accessory muscle activation. There is no chest wall tenderness. Breath sounds are heard bilaterally. No rales or rhonchi heard. No evidence of any consolidation. BREASTS: Deferred. HEART: The heart sounds are normal. No S3 or S4. Short systolic murmur in the left upper border. No diastolic murmurs. No pericardial rub ABDOMEN: No vessel pulsations or distention. No tenderness. No organomegaly appreciated. Bowel sounds are normally heard. : Deferred. RECTAL: Deferred. Obese LYMPHATIC: No lymphadenopathy noted in the neck. EXTREMITIES: 1-2+ edema of both lower extremities. No cyanosis MUSCULOSKELETAL: No acute joint deformities or swelling SKIN: There are no significant rashes or ecchymosis NEUROPSYCHIATRIC: The patient is alert and oriented x3. Appears to be in a good mood. No tremors or rigidity noted. Urinary Catheter Management: Mcdowell: Cath Placed During This Visit: no Reason for Continuing Indwelling Catheter: Other Data 01/29/25 04:21 01/29/25 04:21 Other Labs: Laboratory Last Values WBC 10.78 10^3/uL (3.29-11.43) 01/29/25 04:21 RBC 4.49 10^6/uL (3.85-5.65) 01/29/25 04:21 Hgb 12.10 g/dL (11.27-16.99) 01/29/25 04:21 Hct 38.5 % (36-47) 01/29/25 04:21 MCV 85.7 fl (85-98) 01/29/25 04:21 MCH 26.9 pg (27-33) L 01/29/25 04:21 MCHC 31.4 g/dL (30-55) 01/29/25 04:21 RDW 15.2 % (12.1-15.1) H 01/29/25 04:21 Plt Count 241 10^3/cmm (157-399) 01/29/25 04:21 MPV 12.4 fL (7.4-10.4) H 01/29/25 04:21 Neut % (Auto) 64.7 % 01/29/25 04:21 Lymph % (Auto) 21.1 % 01/29/25 04:21 [place] % (Auto) 9.5 % 01/29/25 04:21 Eos % (Auto) 3.6 % 01/29/25 04:21 Baso % (Auto) 0.6 % 01/29/25 04:21 Neut # (Auto) 6.99 10^3/uL (1.8-7.7) 01/29/25 04:21 Lymph # (Auto) 2.3 10^3/uL (0.8-4.8) 01/29/25 04:21 [place] # (Auto) 1.0 10^3/uL (0.2-0.9) H 01/29/25 04:21 Eos # (Auto) 0.4 10^3/uL (0.0-0.8) 01/29/25 04:21 Baso # (Auto) 0.1 10^3/uL (0.0-0.1) 01/29/25 04:21 Nucleated RBC % (auto) 0 % 01/29/25 04:21 Nucleated RBCs # 0.0 /100WBC 01/29/25 04:21 Specimen Type Arterial 01/26/25 13:49 Sample Site Radial, left 01/26/25 13:49 ABG pH 7.36 (7.35-7.45) 01/26/25 13:49 ABG pCO2 49.8 mmHg (35-45) H 01/26/25 13:49 ABG pO2 53.6 mmHg (80.0-100.0) L 01/26/25 13:49 ABG PO2/FiO2 Ratio 255 01/26/25 13:49 ABG HCO3 28.4 mmol/L (22-26) H 01/26/25 13:49 ABG Base Excess 2.2 mmol/L (-2.0-2.0) H 01/26/25 13:49 José Test Pos 01/26/25 13:49 Hematocrit 40.0 % (37-47) 01/26/25 13:49 O2 Delivery Device Room air 01/26/25 13:49 FiO2 21.0 % 01/26/25 13:49 Milk Wagon Driver ID Cak 01/26/25 13:49 Sodium 137 mmol/L (136-145) 01/29/25 04:21 Potassium 4.5 mmol/L (3.5-5.1) 01/29/25 04:21 Chloride 98 mmol/L (98-107) 01/29/25 04:21 Carbon Dioxide 30 mmol/L (22-29) H 01/29/25 04:21 Anion Gap 13.5 (5-19) 01/29/25 04:21 BUN 23 mg/dL (8-23) 01/29/25 04:21 Creatinine 1.0 mg/dL (0.5-0.9) H 01/29/25 04:21 GFR Calculation 56.6 mL/min (90-130) L 01/29/25 04:21 Glucose 237 mg/dL (65-115) H 01/29/25 04:21 POC Glucose 231 mg/dL (70-110) H 01/29/25 06:38 Calculated Osmolality 295 mOsm/kg (285-295) 01/29/25 04:21 Calcium 8.0 mg/dL (8.5-10.5) L 01/29/25 04:21 Phosphorus 4.0 mg/dL (2.5-4.5) 01/29/25 04:21 Magnesium 1.8 mg/dL (1.7-2.3) 01/29/25 04:21 Total Bilirubin 0.4 mg/dL (0.15-1.2) 01/29/25 04:21 AST 9 U/L (0-32) 01/29/25 04:21 ALT 10 U/L (0-33) 01/29/25 04:21 Alkaline Phosphatase 112 U/L (35-105) H 01/29/25 04:21 Troponin T Baseline 36 ng/L (0-10) H 01/25/25 16:47 Troponin T 120 Minute 39.31 ng/L (0-10) H 01/25/25 19:46 Delta Troponin T 3.31 ABS# (0-10) 01/25/25 19:46 Troponin T Hi Sens 6Hr 53.06 ng/L (0-10) H 01/25/25 23:17 Troponin T Hi Sens 6Hr Delta 17.06 ng/L (0-12) H* 01/25/25 23:17 NT-Pro-B Natriuret Pep 7299 pg/mL (0-125) H 01/29/25 04:21 Total Protein 5.4 g/dL (6.6-8.7) L 01/29/25 04:21 Albumin 2.3 g/dL (3.5-5.2) L 01/29/25 04:21 Globulin 3.1 g/dL (1.3-4.6) 01/29/25 04:21 TSH 3.11 uIU/mL (0.27-4.20) 01/27/25 04:35 Free T4 0.94 ng/dL (0.82-1.77) 01/27/25 04:35 Free T3 1.7 PG/ML (2.0-4.4) L 01/27/25 04:35 A&P Assessment and plan 1. Elevated troponin: Most likely related to type II AK. At this point, the patient may not require any further investigations. May continue the current measures. The results of the Myocardial perfusion imaging were once again discussed 2. Acute on chronic diastolic heart failure: Continue on the current medications. IV Lasix may be changed to p.o. 60 mg twice daily 3. Chest pain, unspecified type: Currently resolved. May continue on the current management. 4. Intermittent atrial fibrillation: Patient currently seems to be in sinus rhythm. May continue with current medications. Continue on the subcu Lovenox. 5. Chronic anticoagulation: Patient may be restarted on the Eliquis 6. Benign hypertension: Since the blood pressure is in the normal range, patient may not require any medication changes at this time. Advised to continue on the current measures. 7. Type 2 diabetes mellitus with hyperglycemia, with long-term current use of insulin: Diabetes seems to be fairly under control. Advised to continue on the current measures. 8. Bilateral leg edema: The etiology is unclear. The morbid obesity, dependency, heart failure, intra- abdominal pathology, etc. are considerations. Venous insufficiency also is accountability factor. Plan: Bilateral lower extremity venous Doppler examination, to evaluate for insufficiency. Advised for compression stockings bilaterally If the patient continues to remain stable, may be discharged home Follow-up with the [facility] in 2 weeks to be seen by the nurse practitioner Follow-up with me in the office as scheduled PDMP PDMP Reviewed: Not Reviewed Attestations 2 Medical Necessity Statement*: Possible discharge home today Coding Level of Care Code 57112 Diagnoses Elevated troponin R79.89 Acute on chronic diastolic heart failure I50.33 Chest pain, unspecified type R07.9 Chest pain type: unspecified Intermittent atrial fibrillation I48.0 Chronic anticoagulation Z79.01 Benign hypertension I10 Type 2 diabetes mellitus with hyperglycemia, with long-term current use of insulin E11.65; Z79.4 Diabetes mellitus type: type 2 Bilateral leg edema R60.0
--- NOTE | 2025-01-29 15:07 | P.DS_ITS ---
Discharge Providers Date of Admission: 01/25/25 19:18 Date of Discharge: January 29, 2025 Attending Provider at Admission: Shelbie Mcmahon MD Attending Provider at Discharge: Ji Chung MD Primary Care Provider: RICHARD Sotelo Diagnoses at Discharge Discharge Diagnosis 1. Elevated troponin: 2. Acute on chronic diastolic heart failure: 3. Chest pain, unspecified type: 4. Intermittent atrial fibrillation: 5. Chronic anticoagulation: 6. Benign hypertension: 7. Type 2 diabetes mellitus with hyperglycemia, with long-term current use of insulin: 8. Bilateral leg edema: Reason for Visit Reason for Visit: SOB falls and fuild build up Hospital Course Hospital Course This is a 59-year-old female with a past medical history of diastolic CHF, atrial fibrillation, asthma, COPD who presents to for edema and shortness of breath Patient was admitted to for acute diastolic CHF exacerbation, received IV diuresis, overall clinically improved, discharged -7 L discharged on Lasix, with potassium replacement therapy with close follow-up with cardiology dizziness -Reports dizziness over the last few months -No focal neurologic deficits, -CT head 01/24/2025 associated with fall -FINDINGS: Brain: No acute intracranial hemorrhage. No midline shift or mass effect. No acute territorial infarct. Cerebral ventricles: The ventricles and sulci are commensurate with age. Paranasal sinuses: Visualized sinuses are unremarkable. No fluid levels. Mastoid air cells: Visualized mastoid air cells are well aerated. Bones: Unremarkable. No acute fracture. Soft tissues: Unremarkable. MRI brain 12/20/2024 MR/MR pituitary wo/w con* [id number] IMPRESSION: 1. Findings are nonspecific and may be incidental but can be seen with lymphocytic apophysitis, occult adenoma, and possibly primary hypothyroidism with pituitary hyperplasia. Recommend correlation with pituitary and endocrine studies and endocrine consult. Recommend 6 to 12-month follow-up MRI pituitary to confirm stability 2. New small focus of restricted diffusion along the anterior LEFT temporal lobe suspicious for a small focus of ischemia measuring 6 mm. This is new from previous. CTA head and neck CT/CT angio neck [id number] IMPRESSION: 1. No significant cervical ICA stenosis bilaterally. Mild atheromatous plaque LEFT carotid bulb. 2. LEFT dominant vertebral artery is patent to the basilar junction. Only a tiny hypoplastic RIGHT vertebral artery. 3. Enlarged multinodular thyroid. This can be followed up with ultrasound. -Could be associated with her Charcot foot disease -Discharged on aspirin, statin, Xarelto - Follow-up with primary care Hypertension discharged on hydralazine, losartan NSTEMI IMPRESSIONS 1. Myocardial perfusion imaging revealing moderate area persistent decreased tracer uptake involving the inferior wall and inferolateral regions with a subtle reversibility suggesting myocardial scarring in the distribution of the right coronary artery with a subtle area of possible mena-infarction ischemia. 2. Normal LV ejection fraction of 58%. 3. LV wall motion analysis revealing no gross wall motion abnormalities. 4. Slightly dilated LV cavity with an end-systolic volume of 64 mL -Cardiology consulted, medical management -Follow-up with cardiology as out patient -Aspirin, statin, Physical Exam Const: COMMON NORMALS: no acute distress and patient oriented x3 Resp: COMMON NORMALS: normal respiratory effort, No retractions, No use of accessory muscles and clear to auscultation bilaterally AUSCULTATION: clear to auscultation bilaterally Cardio: COMMON NORMALS: regular rate, regular rhythm, S1 normal heart sound present and S2 normal heart sound present RATE: regular rate RHYTHM: regular rhythm HEART SOUNDS: S1 normal heart sound present and S2 normal heart sound present GI: COMMON NORMALS: Normal to inspection, nondistended, normoactive bowel sounds present and non-tender Extremity: NARRATIVE EXTREMITY EXAM: 1+ edema Neuro: COMMON NORMALS: patient oriented x3 Psych: COMMON NORMALS: mental status grossly normal Urinary Catheter Management: Mcdowell: Cath Placed During This Visit: yes, but has since been removed by the nurse Reason for Continuing Indwelling Catheter: Decision to DC Catheter Date Urinary Catheter Removed: 01/29/25 Time Urinary Catheter Discontinued: 10:29 Discharge Data Studies Completed and Pending Completed Studies During Hospitalization Category Date Time Status CT abdomen pelvis wo con [id number] Routine Cat Scan 01/27/25 14:42 Completed Cardiac Stress Test MIBI [Sestamibi Stress Test Request Exams 01/26/25 17:24 C ompleted ] Routine XR chest 1V portable [id number] Stat Exams 01/25/25 16:19 Completed NM lynette perf SPECT r/s* [id number] Routine Nuc Med 01/27/25 17:24 Completed Radiology Impressions Chest X-Ray 01/25/25 16:19 IMPRESSION: 1. Low lung volumes with central bronchovascular crowding. 2. Patchy bibasilar atelectasis versus edema. Abdomen/Pelvis CT 01/27/25 14:42 IMPRESSION: 1. Moderate edema throughout the deep subcutaneous fat, most marked in the left mid abdomen. 2. The bladder is partially contracted, but demonstrates moderate diffuse mural thickening. Findings should be correlated for the presence of cystitis. 3. No acute disease otherwise identified. Laboratory Results WBC 10.78 10^3/uL (3.29-11.43) 01/29/25 04:21 RBC 4.49 10^6/uL (3.85-5.65) 01/29/25 04:21 Hgb 12.10 g/dL (11.27-16.99) 01/29/25 04:21 Hct 38.5 % (36-47) 01/29/25 04:21 MCV 85.7 fl (85-98) 01/29/25 04:21 MCH 26.9 pg (27-33) L 01/29/25 04:21 MCHC 31.4 g/dL (30-55) 01/29/25 04:21 RDW 15.2 % (12.1-15.1) H 01/29/25 04:21 Plt Count 241 10^3/cmm (157-399) 01/29/25 04:21 MPV 12.4 fL (7.4-10.4) H 01/29/25 04:21 Neut % (Auto) 64.7 % 01/29/25 04:21 Lymph % (Auto) 21.1 % 01/29/25 04:21 Oldham % (Auto) 9.5 % 01/29/25 04:21 Eos % (Auto) 3.6 % 01/29/25 04:21 Baso % (Auto) 0.6 % 01/29/25 04:21 Neut # (Auto) 6.99 10^3/uL (1.8-7.7) 01/29/25 04:21 Lymph # (Auto) 2.3 10^3/uL (0.8-4.8) 01/29/25 04:21 [place] # (Auto) 1.0 10^3/uL (0.2-0.9) H 01/29/25 04:21 Eos # (Auto) 0.4 10^3/uL (0.0-0.8) 01/29/25 04:21 Baso # (Auto) 0.1 10^3/uL (0.0-0.1) 01/29/25 04:21 Nucleated RBC % (auto) 0 % 01/29/25 04:21 Nucleated RBCs # 0.0 /100WBC 01/29/25 04:21 Specimen Type Arterial 01/26/25 13:49 Sample Site Radial, left 01/26/25 13:49 ABG pH 7.36 (7.35-7.45) 01/26/25 13:49 ABG pCO2 49.8 mmHg (35-45) H 01/26/25 13:49 ABG pO2 53.6 mmHg (80.0-100.0) L 01/26/25 13:49 ABG PO2/FiO2 Ratio 255 01/26/25 13:49 ABG HCO3 28.4 mmol/L (22-26) H 01/26/25 13:49 ABG Base Excess 2.2 mmol/L (-2.0-2.0) H 01/26/25 13:49 José Test Pos 01/26/25 13:49 Hematocrit 40.0 % (37-47) 01/26/25 13:49 O2 Delivery Device Room air 01/26/25 13:49 FiO2 21.0 % 01/26/25 13:49 Rat Poisoner ID Cak 01/26/25 13:49 Sodium 137 mmol/L (136-145) 01/29/25 04:21 Potassium 4.5 mmol/L (3.5-5.1) 01/29/25 04:21 Chloride 98 mmol/L (98-107) 01/29/25 04:21 Carbon Dioxide 30 mmol/L (22-29) H 01/29/25 04:21 Anion Gap 13.5 (5-19) 01/29/25 04:21 BUN 23 mg/dL (8-23) 01/29/25 04:21 Creatinine 1.0 mg/dL (0.5-0.9) H 01/29/25 04:21 GFR Calculation 56.6 mL/min (90-130) L 01/29/25 04:21 Glucose 237 mg/dL (65-115) H 01/29/25 04:21 POC Glucose 291 mg/dL (70-110) H 01/29/25 10:34 Calculated Osmolality 295 mOsm/kg (285-295) 01/29/25 04:21 Calcium 8.0 mg/dL (8.5-10.5) L 01/29/25 04:21 Phosphorus 4.0 mg/dL (2.5-4.5) 01/29/25 04:21 Magnesium 1.8 mg/dL (1.7-2.3) 01/29/25 04:21 Total Bilirubin 0.4 mg/dL (0.15-1.2) 01/29/25 04:21 AST 9 U/L (0-32) 01/29/25 04:21 ALT 10 U/L (0-33) 01/29/25 04:21 Alkaline Phosphatase 112 U/L (35-105) H 01/29/25 04:21 Troponin T Baseline 36 ng/L (0-10) H 01/25/25 16:47 Troponin T 120 Minute 39.31 ng/L (0-10) H 01/25/25 19:46 Delta Troponin T 3.31 ABS# (0-10) 01/25/25 19:46 Troponin T Hi Sens 6Hr 53.06 ng/L (0-10) H 01/25/25 23:17 Troponin T Hi Sens 6Hr Delta 17.06 ng/L (0-12) H* 01/25/25 23:17 NT-Pro-B Natriuret Pep 7299 pg/mL (0-125) H 01/29/25 04:21 Total Protein 5.4 g/dL (6.6-8.7) L 01/29/25 04:21 Albumin 2.3 g/dL (3.5-5.2) L 01/29/25 04:21 Globulin 3.1 g/dL (1.3-4.6) 01/29/25 04:21 TSH 3.11 uIU/mL (0.27-4.20) 01/27/25 04:35 Free T4 0.94 ng/dL (0.82-1.77) 01/27/25 04:35 Free T3 1.7 PG/ML (2.0-4.4) L 01/27/25 04:35 Vitals Last Vital Signs Temp 98.2 F 01/29/25 11:30 Pulse 64 01/29/25 11:30 Resp 16 01/29/25 11:30 BP 167/68 01/29/25 11:30 Pulse Ox 95 01/29/25 11:30 O2 Del Method Room Air 01/29/25 11:08 O2 Flow Rate 2 01/28/25 00:00 Discharge Plan Discharge Patient Disposition: Home Condition: Stable Prescriptions: New aspirin 81 mg Tablet,Delayed Release (Dr/Ec) 81 mg PO DAILY 30 Days Qty: 30 0RF hydralazine 25 mg tablet 25 mg PO TID 30 Days Qty: 90 0RF potassium chloride [Klor-Con M20] 20 mEq Tablet,Er Particles/Crystals 20 meq PO BID 30 Days Qty: 60 0RF losartan 50 mg tablet 50 mg PO BID 30 Days Qty: 60 0RF Rx Instructions: start 01/30/2025 cefdinir 300 mg capsule 300 mg PO BID 5 Days Qty: 10 0RF Continued albuterol sulfate 2.5 mg /3 mL (0.083 %) solution for nebulization 2.5 mg inhalation Q4H PRN (Reason: shortness of breath or wheezing) Qty: 90 0RF nateglinide 60 mg tablet 60 mg PO TID Qty: 270 0RF Rx Instructions: give before meal(s) albuterol sulfate [Ventolin HFA] 90 mcg/actuation HFA aerosol inhaler 2 puff inhalation Q6H PRN (Reason: shortness of breath or wheezing) Qty: 6.7 2RF acetaminophen [Acetaminophen Extra Strength] 500 mg tablet 1,000 mg PO Q6H PRN (Reason: Pain) tizanidine 2 mg tablet 2 mg PO BEDTIME@22 Qty: 30 2RF Xarelto 20 mg tablet 20 mg PO BEDTIME@22 Qty: 30 2RF metoprolol tartrate 25 mg tablet 25 mg PO Q12H Qty: 60 2RF levocetirizine 5 mg tablet 5 mg PO BID Qty: 60 5RF gabapentin 300 mg capsule 300 mg PO BID@ Qty: 60 2RF duloxetine 60 mg capsule,delayed release(DR/EC) 60 mg PO BID@ Qty: 60 2RF dulaglutide 4.5 mg/0.5 mL pen injector 4.5 mg SUBCUT .weekly Qty: 2 2RF Rx Instructions: Friday's doxepin 25 mg capsule 25 mg PO BEDTIME@22 Qty: 30 2RF atorvastatin 40 mg tablet 40 mg PO BEDTIME@22 Qty: 30 5RF methocarbamol 750 mg tablet 750 mg PO Q6H PRN (Reason: spasms) Qty: 20 0RF amiodarone 200 mg tablet 200 mg PO DAILY insulin glargine [Lantus Solostar U-100 Insulin] 100 unit/mL (3 mL) insulin pen 30 unit SUBCUT BEDTIME furosemide [Lasix] 20 mg tablet 20 mg PO BID 30 Days Qty: 60 1RF nitroglycerin [Nitrostat] 0.4 mg Tablet, Sublingual 0.4 mg SUBLINGUAL Q5M PRN (Reason: Chest Pain) Rx Instructions: do not exceed 3 doses per episode ascorbate calcium (vitamin C) 500 mg Tablet 1,000 mg PO BEDTIME Discontinued losartan 25 mg tablet See Rx Instructions .ROUTE .COMPLEX Qty: 90 2RF Dose Instruction: TAKE ONE TABLET BY MOUTH DAILY; HOLD IF BLOOD PRESSURE IS LESS THAN OR EQUAL TO 120/80 Rx Instructions: TAKE ONE TABLET BY MOUTH DAILY; HOLD IF BLOOD PRESSURE IS LESS THAN OR EQUAL TO 120/80 nitrofurantoin monohyd/m-cryst [Macrobid] 100 mg capsule 100 mg PO Q12H 7 Days Qty: 14 0RF Rx Instructions: must administer with a meal/food [place] [place] Sh[place] with 3 Pairs of Inserts See Rx Instructions .Route .MEDSUPPLY Qty: 1 0RF Rx Instructions: As directed by HOME [place] [place] Diabetic shoes with 3 sets of inserts See Rx Instructions .Route .MEDSUPPLY Qty: 1 0RF Rx Instructions: As directed by [employer] ([facility] [place] blood-glucose meter Misc See Rx Instructions .Route Qty: 1 0RF Rx Instructions: As directed [place] [place] Dexcom G7 Analytical Data Scientist Misc See Rx Instructions .Route Qty: 1 0RF Rx Instructions: As directed [place] [place] Dexcom G7 Sensor Device See Rx Instructions .Route Qty: 9 1RF Rx Instructions: As directed [place] [place] lancets Misc See Rx Instructions .Route Qty: 100 3RF Rx Instructions: once daily ([facility] [place] 12 pairs of diabetic socks See Rx Instructions .Route .MEDSUPPLY Qty: 1 0RF Rx Instructions: As directed by [employer] (DME) Diabetic Shoes with 3 pairs of inserts- build up to the right See Rx Instructions .Route .MEDSUPPLY Qty: 1 0RF Rx Instructions: As directed by [employer] (DME) blood-glucose meter [True Metrix Glucose Meter] Misc See Rx Instructions .Route Qty: 1 0RF Rx Instructions: As directed (DME) True Metrix Glucose Test Strip Strip See Rx Instructions .Route Qty: 300 3RF Rx Instructions: TID (DME) lancets 31 gauge misc See Rx Instructions .Route Qty: 300 3RF Rx Instructions: As directed (DME) pen needle, diabetic [Comfort EZ Pen [place]] 31 gauge x 5/16 needle See Rx Instructions .Route Qty: 1200 2RF Rx Instructions: As directed (DME) Blood Glucose Test Strip See Rx Instructions .Route Qty: 100 3RF Rx Instructions: once daily Discharge Order = DC NOW: Discharge Order (Routine); Ordered 01/29/25 Ordered By: iJ Chung Referrals: Cristina Canela FNP-C [Primary Care Provider, Family Practice] Referral Note: We have notified your physician's clinic of the need for a follow-up appointment to be scheduled. If you have not heard from them within the next 2 business days, please call them directly. Discharge Diet: Cardiac Discharge Activity: Resume usual activity Patient Instructions: Aspirin (By mouth), Potassium Supplement (By mouth) (Klor-Con, Klor-Con 10, K-Tab, K-Vescent), Hydralazine (By mouth), Losartan (By mouth), Cefdinir (By mouth), Heart Failure (DC), Leg Edema (ED), CHF Stoplight, Opioid Safety, Patient Portal & Jose Instructions Activity Restrictions/Additional Instructions: - Please limit your fluid intake to 2 L of fluid a day - If you gain more than 3 pounds, or develop edema or develop shortness of breath - Then take Lasix 40 mg twice daily, with potassium - Do this for 3 days in a row - If after 3 days you continue to have shortness of breath or edema or gain more than 3 pounds then go to the emergency room - But if you feel better/edema/shortness of breath/weight gain go back to 20 mg twice daily, potassium - Follow-up cardiology Discharge Attestations Time Spent in Discharge Care*: greater than 30 min Quality Metrics Clinical Quality Measures [ No reported AMI, CVA or VTE this stay] Coding Level of Care Code 89033 Total time (in minutes) for Discharge: 45 Diagnoses Elevated troponin R79.89 Acute on chronic diastolic heart failure I50.33 Chest pain, unspecified type R07.9 Chest pain type: unspecified Intermittent atrial fibrillation I48.0 Chronic anticoagulation Z79.01 Benign hypertension I10 Type 2 diabetes mellitus with hyperglycemia, with long-term current use of insulin E11.65; Z79.4 Diabetes mellitus type: type 2 Bilateral leg edema R60.0
== END 2025-01-29 11:10 | disposition home or self-care (01) | DRG 194 ==
LOC: ER 17:33 → MEDSURG 20:06
PROVIDERS: Admitting Provider Internal Medicine; Emergency Provider Emergency Medicine; PCP Nurse Practitioner Family; Visit Provider Family Medicine
DX: I11.0 Hypertensive heart disease with heart failure (principal); I50.33 Acute on chronic diastolic (congestive) heart failure; I48.91 Unspecified atrial fibrillation; E11.65 Type 2 diabetes mellitus with hyperglycemia; I21.A1 Myocardial infarction type 2; J44.9 Chronic obstructive pulmonary disease, unspecified; E66.01 Morbid (severe) obesity due to excess calories; E78.5 Hyperlipidemia, unspecified; Z89.411 Acquired absence of right great toe; Z85.3 Personal history of malignant neoplasm of breast; Z79.01 Long term (current) use of anticoagulants; Z79.85 Long-term (current) use of injectable non-insulin antidiabetic drugs; Z79.4 Long term (current) use of insulin; Z79.84 Long term (current) use of oral hypoglycemic drugs; Z68.42 Body mass index [BMI] 45.0-49.9, adult; Z90.13 Acquired absence of bilateral breasts and nipples
CPT/HCPCS: 36415; 36416; 36600; 51702; 71045; 74176; 78452; 80048; 80053; 82803; 82962; 83735; 83880; 84100; 84439; 84443; 84481; 84484; 85025; 93005; 94640; 96372; 96374; 97116; 97162; 97165; 99214; 99285; A9500; J0696; J1644; J1815; J1938; J2785; J9999

== ENCOUNTER 2025-02-15 14:32 | Outpatient (CLI) | payer MEDICAID, SELFPAY ==
--- NOTE | 2025-02-15 15:30 | USR_ITS ---
PROCEDURE INFORMATION: Exam: US Soft Tissue Head and Neck, Thyroid Exam date and time: 02/15/2025 3:11 PM Age: 59 years old Clinical indication: Condition or disease; Thyroid disorder; Goiter, non-toxic; Type not specified; Additional info: E04.2 - nontoxic multinodular goiter TECHNIQUE: Imaging protocol: Real-time ultrasound scan of the neck with image documentation. Exam focused on the thyroid. COMPARISON: US thyroid [id number] 01/06/2020 12:56 PM FINDINGS: Right thyroid lobe: The right lobe of the thyroid gland is heterogeneous and mildly enlarged and measures 3.1 x 2.0 x 5.7 cm, volume 16.5 mL. A solid nodule within the posteroinferior right lobe of the thyroid measures 1.7 x 1.9 x 2.1 cm compared with 1.6 x 1.8 cm previously. Additional scattered cystic changes are seen within the right lobe measuring less than 1 cm. Left thyroid lobe: The left lobe of the thyroid gland measures 1.6 x 1.9 x 4.8 cm, volume 6.9 mL. A solid nodule within the left lobe of the thyroid gland measures up to 1.1 cm in greatest dimension as is stable when compared to the previous study. Additional scattered cystic changes are noted within the left lobe measuring less than 1 cm Isthmus: The isthmus measures 0.2 cm. US/US thyroid [id number] IMPRESSION: Diffusely heterogeneous thyroid gland with bilateral thyroid nodules with slight interval enlargement in a solid nodule within the inferior right lobe since 01/06/2020. Correlation with fine-needle aspiration is recommended if not previously performed. Alternatively follow-up thyroid ultrasound in 6-12 months is suggested given slight interval growth of the nodule
== END 2025-02-15 14:33 | disposition home or self-care (01) ==
LOC: RAD 14:33
PROVIDERS: PCP Nurse Practitioner Family; Visit Provider Nurse Practitioner Family
DX: E04.2 Nontoxic multinodular goiter (principal)
CPT/HCPCS: 76536

== ENCOUNTER → 2025-02-25 10:02 | Outpatient (BNVA) | payer MEDICAID, SELFPAY | PROVIDERS: PCP Nurse Practitioner Family; Visit Provider Nurse Practitioner Family | DX: I11.0 Hypertensive heart disease with heart failure (principal); I50.33 Acute on chronic diastolic (congestive) heart failure; I48.0 Paroxysmal atrial fibrillation; R53.1 Weakness; R91.1 Solitary pulmonary nodule; F17.210 Nicotine dependence, cigarettes, uncomplicated; Z79.01 Long term (current) use of anticoagulants | CPT/HCPCS: 99214 ==

== ENCOUNTER → 2025-02-28 14:03 | Outpatient (BNVA) | payer MEDICAID, SELFPAY | PROVIDERS: PCP Nurse Practitioner Family; Visit Provider Nurse Practitioner Family | DX: E11.65 Type 2 diabetes mellitus with hyperglycemia (principal); Z79.4 Long term (current) use of insulin | CPT/HCPCS: 80053; 80061; 83036; 84443 ==

== ENCOUNTER 2025-03-12 16:45 | Inpatient (IN) | payer MEDICAID, SELFPAY ==
[2025-03-12] VITALS (19 sets, daily range): BP systolic 106–196; BP diastolic 55–72; PULSE 45–90; RESP 10–22; TEMP 36.6–36.9; O2SAT 91–99; BMI 46.8; BMI 47.1
--- OUTSIDE RECORDS SUMMARY | 2025-03-12 16:48 | XMS_ITS | Clinical Summary ---
Author Organization [facility] Address [address] [place] [address] Phone Care Team Providers Care Pharmacy Picking Technician Name Role Phone Ángel Vance NP Primary Care Provider [phone] Allergies Active Allergy Reactions Criticality Noted Date [...] mg by mouth daily with supper. Active L.acidop,hattie,la c,rha/B.lac,douglas (ADVANCED PROBIOTIC ORAL) Take 1 Capsule [...] Encounters Date Type Department Care Team Description 03/08/2025 External Device Data [facility] ABSTRACTION Provider, Abstract 02/08/2025 External Device Data [facility] Provider, Abstract 01/25/2025 External Device Data [facility] Provider, Abstract 01/19/2025 External Device Data [facility] Provider, Abstract 01/18/2025 External Device Data [facility] Provider, Abstract 12/28/2024 External Device Data [facility] Provider, Abstract from Last 3 Months Immunizations Immunization Administration [...] on file Legal Sex Female 12:[address] CLEANING EQUIPMENT OPERATOR Gender Identity Not on file Sexual Orientation Not on file Last Filed Vital Signs Vital Sign Reading Time Taken Comments Blood Pressure 134/62 04/17/2022 12:[address] CLEANING EQUIPMENT OPERATOR Pulse 75 04/17/2022 12:[address] CLEANING EQUIPMENT OPERATOR Temperature 37.2 C (98.9 F) 04/17/2022 7:[address] CLEANING EQUIPMENT OPERATOR Respiratory Rate 20 04/17/2022 12:[address] CLEANING EQUIPMENT OPERATOR Oxygen Saturation 91% 04/17/2022 12:[address] CLEANING EQUIPMENT OPERATOR Inhaled Oxygen Concentration - - Weight 110.2 kg (243 lb) 04/17/2022 7:[address] CLEANING EQUIPMENT OPERATOR Height 170.2 cm (5' 7 ) 04/17/2022 7:[address] CLEANING EQUIPMENT OPERATOR Body Mass Index 38.06 04/17/2022 7:[address] CLEANING EQUIPMENT OPERATOR Plan of Treatment Health Maintenance Due [...] to complete this topic Insurance [address] [place] [address] MEDICAID [place] Care Teams Pharmacy Picking Technician Relationship Specialty Start Date End Date Ángel Vance NP [address] [place] [phone] PCP - General NURSE PRACTITIONER 04/21/21
--- OUTSIDE RECORDS SUMMARY | 2025-03-12 16:48 | XMS_ITS | Clinical Summary ---
Author Organization [facility] Address [address] Attn: Epic Prelude ADT JASWINDER KRAUS [id number] Care Team Providers Care Salon Leader Name Role Phone Unavailable Primary Care Provider Unavailabl e Immunizations Immunization Administration Dates Next Due Hepatitis A Vaccine 10/30/1999 Social History Tobacco Use Types Packs/Day Years Used Date Smoking Tobacco: Never Assessed Comments Unknown Sex and Gender Information Value Date Recorded Sex Assigned at Not on file Legal Sex Female 3:27 AM MIRROR MAKER Gender Identity Not on file Sexual Orientation [...]
--- OUTSIDE RECORDS SUMMARY | 2025-03-12 16:48 | XMS_ITS | Clinical Summary ---
Author Organization [facility] Address [address] [place] [id number] Care Team Providers Care Graphics Software Engineer Name Role Phone Jose M Lin DO Primary Care Provider [phone] Allergies Active Allergy Reactions Criticality Noted Date [...] needed for shortness of breath or wheezing 4 Active amiodarone (PACERONE) 200 MG tablet Take 200 mg by mouth 1 (one) time each day 5 Active atorvastatin (LIPITOR) 40 MG tablet Take 40 mg by mouth 1 (one) time each day 5 Active doxepin (SINEquan) 25 MG capsule Take 10 mg by mouth every night 5 Active Trulicity 4.5 MG/0.5ML solution auto-injector Inject 4.5 mg under the skin per week 5 Active DULoxetine (CYMBALTA) [address] capsule Take 60 mg by mouth in the morning and 60 mg in the evening. Active furosemide (LASIX) 20 MG tablet Take 20 mg by mouth in the morning. Active gabapentin (NEURONTIN) 300 MG capsule Take 300 mg by mouth in the morning and 300 mg in the evening. 5 Active levocetirizine (XYZAL) 5 MG tablet Take 5 mg by mouth in the morning and 5 mg in the evening. 5 Active metoprolol tartrate 25 MG tablet Take 25 mg by mouth every 12 (twelve) hours 5 Active Xarelto 20 MG tablet Take 20 mg by mouth 1 (one) time each day with dinner Active tiZANidine (ZANAFLEX) 2 MG tablet Take 2 mg by mouth at night if needed 5 Active Lantus SoloStar 100 UNIT/ML injection Inject 30 Units under the skin every night 5 Active Bioflavonoid Products (GAIL C PO) Take 1,000 mg by mouth 1 (one) time each day Active amoxicillin (AMOXIL) 875 MG tablet Take 875 mg by mouth in the morning and 875 mg in the evening. 5 Active omeprazole (PriLOSEC) [address] capsule Take 20 mg by mouth 1 (one) time each day Do not crush or chew. Active hydroCHLOROthia zide 25 MG tablet Take 1 tablet (25 mg total) by mouth 1 (one) time each day 30 tablet 11 5 07/01/19 26 Active losartan (COZAAR) 25 MG tablet Take 25 mg by mouth 1 (one) time each day 5 Active nitroglycerin (NITROSTAT) 0.[address] 0.4 mg under the tongue every 5 (five) minutes if needed 2 Active nateglinide (STARLIX) 60 MG tablet Take 60 mg by mouth 5 Active Active Problems No known active problems Encounters Date Type Department Care Team Description 12/28/2024 10:00 AM CDT Office Visit [facility], [address] [phone] Kathy Waters MD Chronic kidney disease stage 1 (Primary Dx); Hypertensive chronic kidney disease with stage 1 through stage 4 chronic kidney disease, or unspecified chronic kidney disease; Type 2 diabetes mellitus with diabetic chronic kidney disease, not otherwise specified (HCC) 12/28/2024 Documentation Only [facility], [address] [phone] Kayla Crews 12/28/2024 Documentation Only [facility] [address] [place] [phone] Traci Meraz MA 12/23/2024 Telephone [facility] [address] [place] [phone] Traci Meraz MA from Last 3 Months [...] patient's age to complete this topic Insurance Medicaid [place] ([id number]) Care Teams Graphics Software Engineer Relationship Specialty Start Date End Date Jose M Lin DO [address] [place] [phone] PCP - General Family Medicine 10/31/23
--- OUTSIDE RECORDS SUMMARY | 2025-03-12 16:48 | XMS_ITS | Encounter Summary ---
Author Organization [facility] Address [address] [place] [address] Care Team Providers Care Tree Puller Name Role Phone Ángel Vance SENIOR INFORMATION SECURITY ENGINEER Primary Care Provider [phone] Encounter Details Date Type Department Care Team (Late st Contact Info) Description 03/08/2025 External Device Data [facility]STRACTION [...] on file Legal Sex Female 12:59 AM TELETYPIST Gender Identity Not on file Sexual Orientation Not on file documented as of this encounter Plan of Treatment Not on file documented as of this encounter Visit Diagnoses Not on filedocumented in this encounter Care Teams Tree Puller Relationship Specialty Start Date End Date Ángel Vance NP [address] [place] [phone] PCP - General NURSE PRACTITIONER 04/21/21 documented as of this encounter
--- OUTSIDE RECORDS SUMMARY | 2025-03-12 16:48 | XMS_ITS | Encounter Summary ---
Author Organization [facility] Address [address] [place] [address] Phone Care Team Providers Care [employer] Teacher Name Role Phone Jose M Lin DO Primary Care Provider [phone] Encounter Details Date Type Department Care Team (Late st Contact Info) Description 10/31/2023 Orders Only [facility] [address] [place] [address] Urinary tract infection, not otherwise [...] specified documented in this encounter Care Teams [employer] Computer Science Teacher Relationship Specialty Start Date End Date Jose M Lin DO [address] [place] [id number] PCP - General Family Medicine 10/31/23 documented as of this encounter
--- OUTSIDE RECORDS SUMMARY | 2025-03-12 16:48 | XMS_ITS | Encounter Summary ---
Author Organization [facility] Address [address] [place] [address] Care Team Providers Care Reclaimer Name Role Phone Unavailable Primary Care Provider Unavailabl e Encounter Details Date Type Department Care Team (Latest Contact Info) Description 07/19/2004 Outpatient Historical [facility] 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
--- NOTE | 2025-03-12 16:53 | ECG_ITS ---
[facility] Date: 2025-03-12 Pat Name: Soni Head Department: Room: Gender: Female Enrollment Services Vice President: : 1965 Requested By: Piedad Palacios Order Number: [id number] Eric MD: JACK CHAUDHRY Measurements Intervals Avery Rate: 44 P: 0 AR: 0 QRS: 75 QRSD: 109 T: 64 QT: 547 QTc: 470 Interpretive Statements ATRIAL FIBRILLATION WITH SLOW VENTRICULAR RESPONSE LOW QRS VOLTAGE IN EXTREMITY LEADS [QRS DEFLECTION < 0.5 mV IN LIMB LEADS] MINIMAL ST DEPRESSION [0.025+ mV ST DEPRESSION] PROLONGED QT INTERVAL INTERPRETATION BASED ON A DEFAULT AGE OF 40 YEARS Compared to ECG 01/25/2025 23:31:35 Low QRS voltage now present ST (T wave) deviation now present Prolonged QT interval now present Sinus bradycardia no longer present Myocardial infarct finding no longer present Electronically Signed On 03-15-2025 12:05:50 VICE PRESIDENT TAX by JACK CHAUDHRY [email or web address]
--- NOTE | 2025-03-12 16:54 | XRR_ITS ---
PROCEDURE INFORMATION: Exam: XR Chest Exam date and time: 03/12/2025 5:22 PM Age: 59 years old Clinical indication: Pain; Chest pressure; Prior surgery; Surgery date: 6+ months; Surgery type: Bilateral mastectomy; Additional info: Chest pain TECHNIQUE: Imaging protocol: Radiologic exam of the chest. Views: 1 view. COMPARISON: CR XR chest 1V portable [id number] 01/25/2025 4:51 PM FINDINGS: Lungs: Unremarkable. No consolidation. Pleural spaces: Unremarkable. No pleural effusion. No pneumothorax. Heart/Mediastinum: Unremarkable. No cardiomegaly. Bones/joints: Unremarkable. Soft tissues: There are surgical clips in the left axilla. XR/XR chest 1V portable [id number] IMPRESSION: No acute cardiopulmonary process demonstrated.
--- NOTE | 2025-03-12 16:58 | W.ED.WEAKNES ---
Documented by User: Piedad Browning MD 03/12/25 17:51 HPI - Weakness General: Chief complaint: Weakness Stated complaint: bradycardia Time Seen by Provider: 03/12/25 16:54 History of Present Illness: 59-year-old female with a history of chronic foot ulcer with a right toe amputation, breast cancer, GERD, type 2 diabetes, obesity, atrial fibrillation, chronic anticoagulation on Xarelto, COPD, SVT, and hypertension who presents to the emergency room with generalized weakness and bradycardia. Says she has not been taking her potassium. She is just felt generally weak and fatigued. She checked her heart rate and it was low so she called an ambulance. No chest pain. No altered mental status. No focal motor deficits. Related Data Home Medications ?Medication ?Instructions ?Recorded ?Confirmed nitroglycerin 0.4 mg sublingual 0.4 mg sublingual Q5M PRN Chest 06/18/21 02/28/25 tablet (Nitrostat) Pain ascorbate calcium (vitamin C) 500 1,000 mg PO BEDTIME 12/09/22 02/28/25 mg tablet acetaminophen 500 mg tablet 1,000 mg PO Q6H PRN Pain 10/13/24 02/28/25 (Acetaminophen Extra Strength) amiodarone 200 mg tablet 200 mg PO DAILY 01/26/25 02/28/25 insulin glargine 100 unit/mL (3 30 unit SUBCUT BEDTIME 01/26/25 02/28/25 mL) subcutaneous pen (Lantus Solostar U-100 Insulin) Previous Rx's ?Medication ?Instructions ?Recorded Diabetic Shoes with 3 Pairs of #1 ea 02/25/22 Inserts Diabetic shoes with 3 sets of #1 ea 05/22/22 inserts 12 pairs of diabetic socks #1 ea 10/29/22 Diabetic Shoes with 3 pairs of #1 ea 11/26/22 inserts- build up to the right blood-glucose meter #1 ea 11/27/22 lancets #100 ea 05/25/24 blood sugar diagnostic (True #300 ea 06/24/24 Metrix Glucose Test Strip) blood-glucose meter (True Metrix #1 ea 06/24/24 Glucose Meter) lancets 31 gauge #300 ea 06/24/24 albuterol sulfate 2.5 mg/3 mL 2.5 mg (3 mL) inhalation Q4H PRN 10/26/24 (0.083 %) solution for nebulization shortness of breath or wheezing #90 mL blood-glucose sensor (Dexcom G7 #9 ea 11/04/24 Sensor device) blood-glucose,operating system programmer,cont #1 ea 11/04/24 (Dexcom G7 Home Appliances Mechanic) nateglinide 60 mg tablet 60 mg PO TID #270 tabs 11/29/24 furosemide 20 mg tablet (Lasix) 20 mg PO BID 30 days #60 tabs 01/29/25 albuterol sulfate 90 mcg/actuation 2 puff inhalation Q6H PRN 02/28/25 aerosol inhaler (Ventolin HFA) shortness of breath or wheezing #6.7 grams atorvastatin 40 mg tablet 40 mg PO BEDTIME@22 #30 tabs 02/28/25 blood sugar diagnostic (Blood #100 ea 02/28/25 Glucose Test strips) doxepin 25 mg capsule 25 mg PO BEDTIME@22 #30 caps 02/28/25 dulaglutide 4.5 mg/0.5 mL 4.5 mg (0.5 mL) SUBCUT .weekly #2 02/28/25 subcutaneous pen injector mL duloxetine 60 mg capsule,delayed 60 mg PO BID@10,22 #60 caps 02/28/25 release gabapentin 300 mg capsule 300 mg PO BID@10,22 #60 caps 02/28/25 levocetirizine 5 mg tablet 5 mg PO BID #60 tabs 02/28/25 metoprolol tartrate 25 mg tablet 25 mg PO Q12H #60 tabs 02/28/25 nitrofurantoin 100 mg PO Q12H 7 days #14 caps 02/28/25 monohydrate/macrocrystals 100 mg capsule (Macrobid) pen needle, diabetic 31 gauge x #1,200 ea 02/28/25 5/16 (Comfort EZ Pen [place]) rivaroxaban 20 mg tablet (Xarelto) 20 mg PO BEDTIME@22 #30 tabs 02/28/25 tizanidine 4 mg capsule 4 mg PO BID PRN muscle spasticity 02/28/25 #120 caps Allergies Allergy/AdvReac Type Severity Reaction Status Date / Time latex Allergy Intermediate ALGY-Rash Verified 02/28/25 13:02 azithromycin (From Zithromax) Allergy Unknown ADR-Gastrointestinal Verified 02/28/25 13:02 Upset sulfamethoxazole (From Allergy Unknown ADR-Gastrointestinal Verified 02/28/25 13:02 Bactrim) Upset trimethoprim (From Bactrim) Allergy Unknown ADR-Gastrointestinal Verified 02/28/25 13:02 Upset Review of Systems Narrative: Constitutional symptoms: Negative except as documented in HPI. Skin symptoms: Negative except as documented in HPI. Eye symptoms: Negative except as documented in HPI. ENMT symptoms: Negative except as documented in HPI. Respiratory symptoms: Negative except as documented in HPI. Cardiovascular symptoms: Negative except as documented in HPI. Gastrointestinal symptoms: Negative except as documented in HPI. Genitourinary symptoms: Negative except as documented in HPI. Musculoskeletal symptoms: Negative except as documented in HPI. Neurologic symptoms: Negative except as documented in HPI. Psychiatric symptoms: Negative except as documented in HPI. Endocrine symptoms: Negative except as documented in HPI. PFSH ED PFSH: Medical History (Updated 03/12/25 @ 19:22 by HAZEL Salazar) Osteoarthritis of spine Ulcer of foot, chronic Breast cancer, right Breast cancer, left breast Open wound of foot Right great toe Gastroesophageal reflux disease Type 2 diabetes mellitus with hyperglycemia, with long-term current use of insulin Atrial fibrillation COPD (chronic obstructive pulmonary disease) Dyslipidemia SVT (supraventricular tachycardia) Asthma Benign hypertension COPD exacerbation Surgical History History of amputation of great toe H/O esophagogastroduodenoscopy (10/19/21) H/O bilateral mastectomy Status post left breast lumpectomy Status post right breast lumpectomy History of appendectomy History of hysterectomy Family History Father CAD (coronary artery disease) Congestive heart failure (CHF) Hyperlipidemia Hypertension Lung disease Stroke Other Diabetes Denies family history of Clotting disorder Dementia Psychiatric illness Chronic kidney disease (CKD) Suicide Anesthesia complication Bleeding disorder Family history of premature coronary artery disease Cancer Social History Smoking and tobacco/nicotine status: current every day tobacco/nicotine user cigarettes Packs smoked per day: 2 Second hand smoke exposure: Yes Alcohol intake: never Substance/Drug Use: never Adopted: No Caregiver/support person: No Lives independently: Yes Household members: family Housing: House Marital status: Single Number of children: 1 service: No Current occupational status: employed Current gender identity: Female Physical Exam Narrative: EXAM NARRATIVE: General: Alert, no acute distress. Skin: Warm, dry. Head: Normocephalic, atraumatic. Neck: Supple, trachea midline. Eye: Extraocular movements are intact. Ears, nose, mouth and throat: mucosa moist. Cardiovascular: Reg irregular, bradycardic ular, Normal peripheral perfusion. Respiratory: Lungs are clear to auscultation, respirations are non-labored, breath sounds are equal, Symmetrical chest wall expansion. Gastrointestinal: Soft, Nontender, Non distended Musculoskeletal: Normal ROM, no deformity. Neurological: Alert and oriented, No focal neurological deficit observed. Psychiatric: Cooperative, appropriate mood & affect. Course Vital Signs: Vital signs: Vital Signs Temperature 98.4 F 03/12/25 16:45 Pulse Rate 54 L 03/12/25 18:22 Respiratory Rate 15 03/12/25 18:22 Blood Pressure 106/57 03/12/25 18:22 Pulse Oximetry 93 03/12/25 18:22 Oxygen Delivery Me thod Room Air 03/12/25 17:04 MDM - Weakness Medical Decision Making Medical decision making Patient's reason for coming to the emergency room: Bradycardia, generalized weakness Social determinants: Patient is disabled. Lives at home I reviewed the patient's medical record. 59-year-old female with a history of chronic foot ulcer with a right toe amputation, breast cancer, GERD, type 2 diabetes, obesity, atrial fibrillation, chronic anticoagulation on Xarelto, COPD, SVT, and hypertension I reviewed the patient's current home meds Patient is on Xarelto for anticoagulation. She is on amiodarone and metoprolol at home Alternate historians: None Differential diagnosis including but not limited to and based on the above HPI, review of systems and physical exam: for patient with bradycardia: A-fib with slow rate. Heart blocks. Electrolyte abnormalities. Orders placed to evaluate differential diagnosis based on the above differential, HPI and physical exam EKG: Time 1653. Rate 44. A-fib with slow response, nonspecific ST changes, normal ND & QRS intervals, This was reviewed and interpreted by myself the ER physician at 1658. Chest x-ray: No obvious acute process. This was reviewed and interpreted by myself the emergency room physician. I also reviewed the radiology report. Patient care transitioned to PA at shift change. Lab Data 03/12/25 17:02 03/12/25 17:02 Radiology Impressions Chest X-Ray 03/12/25 16:54 IMPRESSION: No acute cardiopulmonary process demonstrated. Laboratory Results WBC 10.49 10^3/uL (3.29-11.43) 03/12/25 17:02 RBC 4.49 10^6/uL (3.85-5.65) 03/12/25 17:02 Hgb 12.20 g/dL (11.27-16.99) 03/12/25 17:02 Hct 40.1 % (36-47) 03/12/25 17:02 MCV 89.3 fl (85-98) 03/12/25 17:02 MCH 27.2 pg (27-33) 03/12/25 17:02 MCHC 30.4 g/dL (30-55) 03/12/25 17:02 RDW 16.1 % (12.1-15.1) H 03/12/25 17:02 Plt Count 232 10^3/cmm (157-399) 03/12/25 17:02 MPV 12.4 fL (7.4-10.4) H 03/12/25 17:02 Neut % (Auto) 46.4 % 03/12/25 17:02 Lymph % (Auto) 36.5 % 03/12/25 17:02 Lagrange % (Auto) 7.2 % 03/12/25 17:02 Eos % (Auto) 8.9 % 03/12/25 17:02 Baso % (Auto) 0.8 % 03/12/25 17:02 Neut # (Auto) 4.87 10^3/uL (1.8-7.7) 03/12/25 17:02 Lymph # (Auto) 3.8 10^3/uL (0.8-4.8) 03/12/25 17:02 Lagrange # (Auto) 0.8 10^3/uL (0.2-0.9) 03/12/25 17:02 Eos # (Auto) 0.9 10^3/uL (0.0-0.8) H 03/12/25 17:02 Baso # (Auto) 0.1 10^3/uL (0.0-0.1) 03/12/25 17:02 Nucleated RBC % (auto) 0 % 03/12/25 17:02 Nucleated RBCs # 0.0 /100WBC 03/12/25 17:02 PT 19.10 SECONDS (12.1-14.9) H 03/12/25 17:02 INR 1.50 (0.8-1.2) H 03/12/25 17:02 APTT 36.4 SECONDS (23.9-36.7) 03/12/25 17:02 Sodium 137 mmol/L (136-145) 03/12/25 17:02 Potassium 4.8 mmol/L (3.5-5.1) 03/12/25 17:02 Chloride 106 mmol/L (98-107) 03/12/25 17:02 Carbon Dioxide 20 mmol/L (22-29) L 03/12/25 17:02 Anion Gap 15.8 (5-19) 03/12/25 17:02 BUN 30 mg/dL (8-23) H 03/12/25 17:02 Creatinine 1.6 mg/dL (0.5-0.9) H 03/12/25 17:02 GFR Calculation 32.9 mL/min (90-130) L 03/12/25 17:02 Glucose 275 mg/dL (65-115) H 03/12/25 17:02 Calculated Osmolality 300 mOsm/kg (285-295) H 03/12/25 17:02 Calcium 7.6 mg/dL (8.5-10.5) L 03/12/25 17:02 Total Bilirubin 0.2 mg/dL (0.15-1.2) 03/12/25 17:02 AST 7 U/L (0-32) 03/12/25 17:02 ALT 7 U/L (0-33) 03/12/25 17:02 Alkaline Phosphatase 119 U/L (35-105) H 03/12/25 17:02 Troponin T Baseline 59 ng/L (0-10) H 03/12/25 17:02 Troponin T 60 Minute 62.84 ng/L (0-10) H 03/12/25 18:15 Delta Troponin T 3.84 ABS# (0-10) 03/12/25 18:15 NT-Pro-B Natriuret Pep 5585 pg/mL (0-125) H 03/12/25 17:02 Total Protein 4.5 g/dL (6.6-8.7) L 03/12/25 17:02 Albumin 2.5 g/dL (3.5-5.2) L 03/12/25 17:02 Globulin 2.0 g/dL (1.3-4.6) 03/12/25 17:02 Lipase 41 U/L (13-60) 03/12/25 17:02 Discharge Plan Discharge Patient Disposition: Admitted As Inpatient Clinical Impression: Bradycardia, Atrial fibrillation with slow ventricular response Condition: Stable Discharge Diet: Low Salt Coding Level of Care Code ED Filbert Grower for Chg Fwd Documented by User: HAZEL Salazar 03/12/25 19:22 HPI - Weakness General: Chief complaint: Weakness Stated complaint: bradycardia Time Seen by Provider: 03/12/25 16:54 Related Data Home Medications ?Medication ?Instructions ?Recorded ?Confirmed nitroglycerin 0.4 mg sublingual 0.4 mg sublingual Q5M PRN Chest 06/18/21 02/28/25 tablet (Nitrostat) Pain ascorbate calcium (vitamin C) 500 1,000 mg PO BEDTIME 12/09/22 02/28/25 mg tablet acetaminophen 500 mg tablet 1,000 mg PO Q6H PRN Pain 10/13/24 02/28/25 (Acetaminophen Extra Strength) amiodarone 200 mg tablet 200 mg PO DAILY 01/26/25 02/28/25 insulin glargine 100 unit/mL (3 30 unit SUBCUT BEDTIME 01/26/25 02/28/25 mL) subcutaneous pen (Lantus Solostar U-100 Insulin) Previous Rx's ?Medication ?Instructions ?Recorded Diabetic Shoes with 3 Pairs of #1 ea 02/25/22 Inserts Diabetic shoes with 3 sets of #1 ea 05/22/22 inserts 12 pairs of diabetic socks #1 ea 10/29/22 Diabetic Shoes with 3 pairs of #1 ea 11/26/22 inserts- build up to the right blood-glucose meter #1 ea 11/27/22 lancets #100 ea 05/25/24 blood sugar diagnostic (True #300 ea 06/24/24 Metrix Glucose Test Strip) blood-glucose meter (True Metrix #1 ea 06/24/24 Glucose Meter) lancets 31 gauge #300 ea 06/24/24 albuterol sulfate 2.5 mg/3 mL 2.5 mg (3 mL) inhalation Q4H PRN 10/26/24 (0.083 %) solution for nebulization shortness of breath or wheezing #90 mL blood-glucose sensor (Dexcom G7 #9 ea 11/04/24 Sensor device) blood-glucose,operating system programmer,cont #1 ea 11/04/24 (Dexcom G7 Home Appliances Mechanic) nateglinide 60 mg tablet 60 mg PO TID #270 tabs 11/29/24 furosemide 20 mg tablet (Lasix) 20 mg PO BID 30 days #60 tabs 01/29/25 albuterol sulfate 90 mcg/actuation 2 puff inhalation Q6H PRN 02/28/25 aerosol inhaler (Ventolin HFA) shortness of breath or wheezing #6.7 grams atorvastatin 40 mg tablet 40 mg PO BEDTIME@22 #30 tabs 02/28/25 blood sugar diagnostic (Blood #100 ea 02/28/25 Glucose Test strips) doxepin 25 mg capsule 25 mg PO BEDTIME@22 #30 caps 02/28/25 dulaglutide 4.5 mg/0.5 mL 4.5 mg (0.5 mL) SUBCUT .weekly #2 02/28/25 subcutaneous pen injector mL duloxetine 60 mg capsule,delayed 60 mg PO BID@,22 #60 caps 02/28/25 release gabapentin 300 mg capsule 300 mg PO BID@10,22 #60 caps 02/28/25 levocetirizine 5 mg tablet 5 mg PO BID #60 tabs 02/28/25 metoprolol tartrate 25 mg tablet 25 mg PO Q12H #60 tabs 02/28/25 nitrofurantoin 100 mg PO Q12H 7 days #14 caps 02/28/25 monohydrate/macrocrystals 100 mg capsule (Macrobid) pen needle, diabetic 31 gauge x #1,200 ea 02/28/25 5/16 (Comfort EZ Pen [place]) rivaroxaban 20 mg tablet (Xarelto) 20 mg PO BEDTIME@22 #30 tabs 02/28/25 tizanidine 4 mg capsule 4 mg PO BID PRN muscle spasticity 02/28/25 #120 caps Allergies Allergy/AdvReac Type Severity Reaction Status Date / Time latex Allergy Intermediate ALGY-Rash Verified 02/28/25 13:02 azithromycin (From Zithromax) Allergy Unknown ADR-Gastrointestinal Verified 02/28/25 13:02 Upset sulfamethoxazole (From Allergy Unknown ADR-Gastrointestinal Verified 02/28/25 13:02 Bactrim) Upset trimethoprim (From Bactrim) Allergy Unknown ADR-Gastrointestinal Verified 02/28/25 13:02 Upset PFSH ED PFSH: Medical History (Updated 03/12/25 @ 19:22 by HAZEL Salazar) Osteoarthritis of spine Ulcer of foot, chronic Breast cancer, right Breast cancer, left breast Open wound of foot Right great toe Gastroesophageal reflux disease Type 2 diabetes mellitus with hyperglycemia, with long-term current use of insulin Atrial fibrillation COPD (chronic obstructive pulmonary disease) Dyslipidemia SVT (supraventricular tachycardia) Asthma Benign hypertension COPD exacerbation Surgical History History of amputation of great toe H/O esophagogastroduodenoscopy (10/19/21) H/O bilateral mastectomy Status post left breast lumpectomy Status post right breast lumpectomy History of appendectomy History of hysterectomy Family History Father CAD (coronary artery disease) Congestive heart failure (CHF) Hyperlipidemia Hypertension Lung disease Stroke Other Diabetes Denies family history of Clotting disorder Dementia Psychiatric illness Chronic kidney disease (CKD) Suicide Anesthesia complication Bleeding disorder Family history of premature coronary artery disease Cancer Social History Smoking and tobacco/nicotine status: current every day tobacco/nicotine user cigarettes Packs smoked per day: 2 Second hand smoke exposure: Yes Alcohol intake: never Substance/Drug Use: never Adopted: No Caregiver/support person: No Lives independently: Yes Household members: family Housing: House Marital status: Single Number of children: 1 service: No Current occupational status: employed Current gender identity: Female Course Consultations: Consultation #1: 1830: Discussed with Dr. Davenport that recommends dopamine for heart rate over 50. He will consult. Call hospitalist for primary care with her diabetes and admission Consultation #2: Dr. Du accepted Vital Signs: Vital signs: Vital Signs Temperature 98.4 F 03/12/25 16:45 Pulse Rate 54 L 03/12/25 18:22 Respiratory Rate 15 03/12/25 18:22 Blood Pressure 106/57 03/12/25 18:22 Pulse Oximetry 93 03/12/25 18:22 Oxygen Delivery Me thod Room Air 03/12/25 17:04 MDM - Weakness Medical Decision Making Medical decision making Patient's reason for coming to the emergency room: Bradycardia, generalized weakness Social determinants: Patient is disabled. Lives at home I reviewed the patient's medical record. 59-year-old female with a history of chronic foot ulcer with a right toe amputation, breast cancer, GERD, type 2 diabetes, obesity, atrial fibrillation, chronic anticoagulation on Xarelto, COPD, SVT, and hypertension I reviewed the patient's current home meds Patient is on Xarelto for anticoagulation. She is on amiodarone and metoprolol at home Alternate historians: None Differential diagnosis including but not limited to and based on the above HPI, review of systems and physical exam: for patient with bradycardia: A-fib with slow rate. Heart blocks. Electrolyte abnormalities. Orders placed to evaluate differential diagnosis based on the above differential, HPI and physical exam EKG: Time 1653. Rate 44. A-fib with slow response, nonspecific ST changes, normal ND & QRS intervals, This was reviewed and interpreted by myself the ER physician at 1658. Chest x-ray: No obvious acute process. This was reviewed and interpreted by myself the emergency room physician. I also reviewed the radiology report. Patient care transitioned to MS at shift change. Dr. Jarrett:accepted as consult Dr. Du accepted as admission Lab Data 03/12/25 17:02 03/12/25 17:02 Radiology Impressions Chest X-Ray 03/12/25 16:54 IMPRESSION: No acute cardiopulmonary process demonstrated. Laboratory Results WBC 10.49 10^3/uL (3.29-11.43) 03/12/25 17:02 RBC 4.49 10^6/uL (3.85-5.65) 03/12/25 17:02 Hgb 12.20 g/dL (11.27-16.99) 03/12/25 17:02 Hct 40.1 % (36-47) 03/12/25 17:02 MCV 89.3 fl (85-98) 03/12/25 17:02 MCH 27.2 pg (27-33) 03/12/25 17:02 MCHC 30.4 g/dL (30-55) 03/12/25 17:02 RDW 16.1 % (12.1-15.1) H 03/12/25 17:02 Plt Count 232 10^3/cmm (157-399) 03/12/25 17:02 MPV 12.4 fL (7.4-10.4) H 03/12/25 17:02 Neut % (Auto) 46.4 % 03/12/25 17:02 Lymph % (Auto) 36.5 % 03/12/25 17:02 Lagrange % (Auto) 7.2 % 03/12/25 17:02 Eos % (Auto) 8.9 % 03/12/25 17:02 Baso % (Auto) 0.8 % 03/12/25 17:02 Neut # (Auto) 4.87 10^3/uL (1.8-7.7) 03/12/25 17:02 Lymph # (Auto) 3.8 10^3/uL (0.8-4.8) 03/12/25 17:02 Lagrange # (Auto) 0.8 10^3/uL (0.2-0.9) 03/12/25 17:02 Eos # (Auto) 0.9 10^3/uL (0.0-0.8) H 03/12/25 17:02 Baso # (Auto) 0.1 10^3/uL (0.0-0.1) 03/12/25 17:02 Nucleated RBC % (auto) 0 % 03/12/25 17:02 Nucleated RBCs # 0.0 /100WBC 03/12/25 17:02 PT 19.10 SECONDS (12.1-14.9) H 03/12/25 17:02 INR 1.50 (0.8-1.2) H 03/12/25 17:02 APTT 36.4 SECONDS (23.9-36.7) 03/12/25 17:02 Sodium 137 mmol/L (136-145) 03/12/25 17:02 Potassium 4.8 mmol/L (3.5-5.1) 03/12/25 17:02 Chloride 106 mmol/L (98-107) 03/12/25 17:02 Carbon Dioxide 20 mmol/L (22-29) L 03/12/25 17:02 Anion Gap 15.8 (5-19) 03/12/25 17:02 BUN 30 mg/dL (8-23) H 03/12/25 17:02 Creatinine 1.6 mg/dL (0.5-0.9) H 03/12/25 17:02 GFR Calculation 32.9 mL/min (90-130) L 03/12/25 17:02 Glucose 275 mg/dL (65-115) H 03/12/25 17:02 Calculated Osmolality 300 mOsm/kg (285-295) H 03/12/25 17:02 Calcium 7.6 mg/dL (8.5-10.5) L 03/12/25 17:02 Total Bilirubin 0.2 mg/dL (0.15-1.2) 03/12/25 17:02 AST 7 U/L (0-32) 03/12/25 17:02 ALT 7 U/L (0-33) 03/12/25 17:02 Alkaline Phosphatase 119 U/L (35-105) H 03/12/25 17:02 Troponin T Baseline 59 ng/L (0-10) H 03/12/25 17:02 Troponin T 60 Minute 62.84 ng/L (0-10) H 03/12/25 18:15 Delta Troponin T 3.84 ABS# (0-10) 03/12/25 18:15 NT-Pro-B Natriuret Pep 5585 pg/mL (0-125) H 03/12/25 17:02 Total Protein 4.5 g/dL (6.6-8.7) L 03/12/25 17:02 Albumin 2.5 g/dL (3.5-5.2) L 03/12/25 17:02 Globulin 2.0 g/dL (1.3-4.6) 03/12/25 17:02 Lipase 41 U/L (13-60) 03/12/25 17:02 All radiology interpretation(s) finalized by discharge Discharge Plan Discharge Patient Disposition: Admitted As Inpatient Clinical Impression: Bradycardia, Atrial fibrillation with slow ventricular response Condition: Stable Discharge Diet: Low Salt Coding Level of Care Code ED Filbert Grower for Briana Nj
[2025-03-12] MEDS: atropine 0.1 mg/mL Syr 10 mL 1 MG IVP (17:04)
[2025-03-12 17:26] LABS: Hematocrit 40.1 % (36-47); Hemoglobin 12.20 g/dL (11.27-16.99); Mean Corpuscular HGB Conc 30.4 g/dL (30-55); Mean Corpuscular Hemoglobin 27.2 pg (27-33); Mean Corpuscular Volume 89.3 fl (85-98); Nucleated Red Blood Cells % 0 %; Platelet Count 232 10^3/cmm (157-399); Red Blood Count 4.49 10^6/uL (3.85-5.65); White Blood Count 10.49 10^3/uL (3.29-11.43)
[2025-03-12 17:36] LABS: INR 1.50 (0.8-1.2); Prothrombin Time 19.10 SECONDS (12.1-14.9)
[2025-03-12 17:37] LABS: Partial Thromboplastin Time 36.4 SECONDS (23.9-36.7)
[2025-03-12 17:43] LABS: Troponin(5th) Baseline 59 ng/L (0-10)
--- NOTE | 2025-03-12 18:01 | ECG_ITS ---
[facility] Test Date: 2025-03-12 Pat Name: Soni Head Department: Room: Gender: Female Practice Office Associate: : 1965 Requested By: Piedad Palacios Order Number: [id number] Reading MD: JACK CHAUDHRY Measurements Intervals [place] Rate: 48 P: 0 WV: 0 QRS: 85 QRSD: 106 T: 65 QT: 540 QTc: 487 Interpretive Statements ATRIAL FIBRILLATION WITH SLOW VENTRICULAR RESPONSE LOW QRS VOLTAGE IN EXTREMITY LEADS [QRS DEFLECTION < 0.5 mV IN LIMB LEADS] PROLONGED QT INTERVAL CRITICAL TEST RESULT Compared to ECG 03/12/2025 16:53:05 ST (T wave) deviation no longer present Electronically Signed On 03-16-2025 20:49:20 SERVICE RIG OPERATOR by JACK CHAUDHRY [email or web address]
[2025-03-12 18:02] LABS: Alanine Aminotransferase 7 U/L (0-33); Albumin Level 2.5 g/dL (3.5-5.2); Alkaline Phosphatase 119 U/L (35-105); Anion Gap 15.8 (5-19); Aspartate Amino Transferase 7 U/L (0-32); Blood Urea Nitrogen 30 mg/dL (8-23); Calcium 7.6 mg/dL (8.5-10.5); Carbon Dioxide 20 mmol/L (22-29); Chloride 106 mmol/L (98-107); Globulin 2.0 g/dL (1.3-4.6); Glucose 275 mg/dL (65-115); Lipase 41 U/L (13-60); NT Pro B Type Natriuretic Pept 5585 pg/mL (0-125); Osmolality Calculated 300 mOsm/kg (285-295); Potassium 4.8 mmol/L (3.5-5.1); Sodium 137 mmol/L (136-145); Total Protein 4.5 g/dL (6.6-8.7)
[2025-03-12] MEDS: DOPamine drip 400 MG/250 ML PREMIX 25.43 MG IV (18:58)
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
--- NOTE | 2025-03-12 20:22 | PC.NURSE ---
Patient when sleeping oxygen saturation drops to 89%. It maintained at 89% nurse started patient on 2 liters nasal cannula while sleeping doctor notified
[2025-03-12 20:28] LABS: Magnesium 2.3 mg/dL (1.7-2.3)
[2025-03-12 20:54] LABS: Thyroid Stimulating Hormone 6.77 uIU/mL (0.27-4.20)
[2025-03-12] MEDS: ondansetron 2 mg/ML SDV 2 mL 4 MG IVP (21:12)
--- NOTE | 2025-03-12 21:23 | PC.NURSE ---
Upon nurse going into room to titrate dip the patient had pulled out IV. New IV inserted into left forearm 20gauge and drip restarted
--- NOTE | 2025-03-12 22:54 | ECG_ITS ---
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: : 1965 Requested By: Piedad Palacios Order Number: [id number] Eric MD: JACK CHAUDHRY Measurements Intervals [place] Rate: 78 P: 20 DE: 157 QRS: 48 QRSD: 128 T: 14 QT: 435 QTc: 497 Interpretive Statements SINUS RHYTHM POSSIBLE LEFT ATRIAL ENLARGEMENT [-0.1mV P-WAVE IN V1/V2] MODERATE INTRAVENTRICULAR CONDUCTION DELAY [110+ ms QRS DURATION] Compared to ECG 03/12/2025 18:01:10 Intraventricular conduction delay now present Atrial fibrillation no longer present Prolonged QT interval no longer present Electronically Signed On 03-16-2025 20:48:35 PEDIATRIC ONCOLOGIST by JACK CHAUDHRY [id number]
[2025-03-12] MEDS: DOPamine drip 400 MG/250 ML PREMIX 76.29 MG IV (23:18)
[2025-03-12 23:23] LABS: Troponin 5 6HR 53.43 ng/L (0-10)
[2025-03-12 23:27] LABS: Troponin 5 6HR Delta -5.57 ng/L (0-12)
[2025-03-13] VITALS (78 sets, daily range): BP systolic 102–185; BP diastolic 48–100; PULSE 56–112; RESP 11–31; O2SAT 89–100
[2025-03-13 05:00] LABS: Anion Gap 13.3 (5-19); Blood Urea Nitrogen 30 mg/dL (8-23); Calcium 8.0 mg/dL (8.5-10.5); Carbon Dioxide 24 mmol/L (22-29); Chloride 107 mmol/L (98-107); Creatinine Clr Calc Pharmacy 61.7667; Glucose 240 mg/dL (65-115); Osmolality Calculated 304 mOsm/kg (285-295); Potassium 4.3 mmol/L (3.5-5.1); Sodium 140 mmol/L (136-145)
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
--- NOTE | 2025-03-13 17:06 | PC.NURSE ---
BP on higher side, persistent hematuria noted today, Dr. Mcknight notifed at bedside gave order for UA and cbc in AM. to make med changes regarding bp
[2025-03-13 19:19] LABS: Add Urine Microscopic? NO
[2025-03-13 19:21] LABS: Glucose Urine UA 1+ (Normal); Nitrate Urine Negative (Negative); Specific Gravity, Urine 1.017 (1.005-1.030)
[2025-03-13 19:24] LABS: Charge for UA Resulting for Rev
[2025-03-13 19:26] LABS: Universal Test for UA Present (0)
--- NOTE | 2025-03-13 20:58 | PM.PN ---
Subjective Subjective: Patient states that she is no longer having palpitations. Heart rate was well-controlled this morning around 60 bpm. Increased in the afternoon to 74. Off all rate control medications. Patient states that she normally takes amiodarone at home for SVT. Also history of intermittent atrial fibrillation. On anticoagulation. Nurse reported to me this morning that patient had some hematuria. UA in progress. Holding rivaroxaban. Vitals/I&O/Wt Last Vital Signs Temp 97.8 F 03/12/25 22:45 Pulse 75 03/13/25 20:00 Resp 19 H 03/13/25 20:00 BP 172/71 03/13/25 20:00 Pulse Ox 91 03/13/25 20:00 O2 Del Method Nasal Cannula 03/13/25 08:50 O2 Flow Rate 3 03/13/25 08:50 03/13/25 03/13/25 03/13/25 06:59 14:59 22:59 Intake Total 291.747 / 456.826 532.648 / 532.648 200 / 732.648 Output Total 200 / 200 Balance 291.747 / 456.826 532.648 / 532.648 0 / 532.648 Weight last 48 hrs Weight 136.5 kg Weight 136.5 kg Weight 135.624 kg Physical Exam Narrative: General Well-developed well-nourished morbidly obese female in no acute cardiopulmonary stress Oropharynx Mallampati 3-4 CBC regular rate and rhythm no murmurs rubs gallops Lungs trace basilar crackles bilaterally partially clear with deep breaths but not completely Abdomen positive bowel tones soft obese nontender Calves 1+ to 2 bilateral pretibial edema without tenderness cords or asymmetry right hallux is resected Skin warm and dry Mentation alert and orient x 3 Data 03/12/25 17:02 03/13/25 03:20 A&P Assessment and plan 1. Atrial fibrillation with slow ventricular response: Metoprolol and amiodarone held. She is on low-dose dopamine. She is now in sinus rhythm. Presenting EKG showed A-fib with bradycardic ventricular response nonspecific ST-T wave changes. Chest x-ray shows defibrillator pad possibly mild left ventricular enlargement otherwise unremarkable Bradycardia resolved after discontinuation of Rate lowering medications. Will hold off on amiodarone, discussed with cardiology as long as patient's rate remains greater than 60 plan to discharge home with monitor and storage bin tender device. ? Later evaluation patient's heart rate stable at 74 bpm, sinus rhythm. Will introduce metoprolol succinate 25 mg p.o., 1 dose at bedtime and continue maintenance dose in the morning. 2. Bilateral leg edema: Possible history of CHF, however patient is lying flat without orthopnea. Minimal leg swelling. Elevate legs. 3. Elevated troponin: Nuclear stress test 01/25/2025 decreased tracer in the inferior wall and inferolateral regions with subtle reversibility suggesting ischemia and scarring in the RCA territory LVEF is 58% 4. Acute on chronic diastolic heart failure: LVEF 58% with A-fib with bradycardia. Stable on room air 5. High serum thyroid stimulating hormone (TSH): She has been running borderline hypothyroid based on labs we will repeat TSH 6. Sleep apnea-like behavior: Suggest outpatient sleep apnea testing 7. Diabetes: Will start sliding scale insulin and diabetic diet 1800 trung no caloric drinks 8. Morbid obesity with BMI of 45.0-49.9, adult: Patient declines weight loss diet and counseling 9. Tobacco abuse: Patient should be further counseled regarding tobacco cessation 10. Hematuria: Patient says this is not the first time she has had hematuria while on the anticoagulation. Will continue with hold anticoagulation, check UA. Denies any dysuria. Check CBC in AM. PDMP PDMP Reviewed: Not Reviewed Attestations Medical Necessity Statement*: Patient requires greater than 2 midnights for treatment of bradycardia and requirement of medication management due to paroxysmal atrial fibrillation. Currently in sinus rhythm. Medication management by reintroducing metoprolol succinate, requires continuous monitoring. Diagnoses Atrial fibrillation with slow ventricular response I48.91 Bilateral leg edema R60.0 Elevated troponin R79.89 Acute on chronic diastolic heart failure I50.33 High serum thyroid stimulating hormone (TSH) R79.89 Sleep apnea-like behavior G47.39 Diabetes E11.9 Morbid obesity with BMI of 45.0-49.9, adult E66.01; Z68.42 Tobacco abuse Z72.0 Hematuria R31.9
[2025-03-13] MEDS: metoprolol succinate ER (24 HR) 25 mg Tablet PO (21:33)
[2025-03-14] VITALS (26 sets, daily range): BP systolic 137–180; BP diastolic 48–89; PULSE 61–85; RESP 13–24; TEMP 37.2; O2SAT 88–99
[2025-03-14 03:32] LABS: Hematocrit 34.1 % (36-47); Hemoglobin 10.70 g/dL (11.27-16.99); Mean Corpuscular HGB Conc 31.4 g/dL (30-55); Mean Corpuscular Hemoglobin 27.0 pg (27-33); Mean Corpuscular Volume 86.1 fl (85-98); Nucleated Red Blood Cells % 0 %; Platelet Count 211 10^3/cmm (157-399); Red Blood Count 3.96 10^6/uL (3.85-5.65); White Blood Count 11.39 10^3/uL (3.29-11.43)
[2025-03-14 03:52] LABS: Alanine Aminotransferase 6 U/L (0-33); Albumin Level 2.3 g/dL (3.5-5.2); Alkaline Phosphatase 94 U/L (35-105); Anion Gap 12.5 (5-19); Aspartate Amino Transferase 8 U/L (0-32); Blood Urea Nitrogen 30 mg/dL (8-23); Calcium 7.7 mg/dL (8.5-10.5); Carbon Dioxide 23 mmol/L (22-29); Chloride 108 mmol/L (98-107); Globulin 2.2 g/dL (1.3-4.6); Glucose 166 mg/dL (65-115); Magnesium 2.1 mg/dL (1.7-2.3); Osmolality Calculated 298 mOsm/kg (285-295); Potassium 4.5 mmol/L (3.5-5.1); Sodium 139 mmol/L (136-145); Total Protein 4.5 g/dL (6.6-8.7)
[2025-03-14] MEDS: metoprolol succinate ER (24 HR) 25 mg Tablet PO (08:32)
--- NOTE | 2025-03-14 13:59 | P.DS_ITS ---
Discharge Providers Date of Admission: 03/12/25 19:32 Date of Discharge: March 14, 2025 Attending Provider at Admission: Joseph Du MD Attending Provider at Discharge: Real Fraser MD Primary Care Provider: RICHARD Sotelo Diagnoses at Discharge Discharge Diagnosis 1. Atrial fibrillation with slow ventricular response: 2. Bilateral leg edema: 3. Elevated troponin: 4. Acute on chronic diastolic heart failure: 5. High serum thyroid stimulating hormone (TSH): 6. Sleep apnea-like behavior: 7. Diabetes: 8. Morbid obesity with BMI of 45.0-49.9, adult: 9. Tobacco abuse: 10. Hematuria: Reason for Visit Reason for Visit: bradycardia Brief History: Soni Head is a 59 year old female with A-fib treated with amiodarone 200 mg daily plus metoprolol 25 mg twice a day states she awoke feeling fatigued thought her heart rate might be fast but checked her vitals and heart rate was 40. She had not taken any extra meds. She did have some chest pressure and also mild central chest pain in the ambulance. She has none now. She did not take nitroglycerin and has not had nausea vomiting diarrhea constipation. Her last episode of chest pain was greater than a year ago. Patient denies fevers chills she has had some cough with allergies, snot and sneezing but it is all clear no color. 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 Patient had a mild episode of hematuria with large RBCs confirmed by UA with positive leukocyte esterase negative nitrates. Infectious etiology not ruled out. Urine culture pending at time of discharge, however patient had recurrent Klebsiella pneumonia UTIs in the past, most recently 01/24/2025. Resistant to nitrofurantoin, tetracyclines. Sensitive to Bactrim, so this was prescribed. Noted allergy to Bactrim, but is only mild due to gastrointestinal upset. Patient discharged in stable condition with heart monitor and follow-up with cardiology. Physical Exam Narrative: General Well-developed well-nourished morbidly obese female in no acute cardiopulmonary stress Oropharynx Mallampati 3-4 CBC regular rate and rhythm no murmurs rubs gallops Lungs trace basilar crackles bilaterally partially clear with deep breaths but not completely Abdomen positive bowel tones soft obese nontender Calves 1+ to 2 bilateral pretibial edema without tenderness cords or asymmetry right hallux is resected Skin warm and dry Mentation alert and orient x 3 Discharge Data Studies Completed and Pending Completed Studies During Hospitalization Category Date Time Status XR chest 1V portable [id number] Stat Exams 03/12/25 16:54 Completed Pending at discharge Category Date Time Status Urine Culture Routine Lab 03/13/25 19:05 Received Radiology Impressions Chest X-Ray 03/12/25 16:54 IMPRESSION: No acute cardiopulmonary process demonstrated. Laboratory Results WBC 11.39 10^3/uL (3.29-11.43) 03/14/25 03:12 RBC 3.96 10^6/uL (3.85-5.65) 03/14/25 03:12 Hgb 10.70 g/dL (11.27-16.99) L 03/14/25 03:12 Hct 34.1 % (36-47) L 03/14/25 03:12 MCV 86.1 fl (85-98) 03/14/25 03:12 MCH 27.0 pg (27-33) 03/14/25 03:12 MCHC 31.4 g/dL (30-55) 03/14/25 03:12 RDW 15.7 % (12.1-15.1) H 03/14/25 03:12 Plt Count 211 10^3/cmm (157-399) 03/14/25 03:12 MPV 11.3 fL (7.4-10.4) H 03/14/25 03:12 Neut % (Auto) 61.9 % 03/14/25 03:12 Lymph % (Auto) 20.9 % 03/14/25 03:12 [place] % (Auto) 8.1 % 03/14/25 03:12 Eos % (Auto) 8.2 % 03/14/25 03:12 Baso % (Auto) 0.5 % 03/14/25 03:12 Neut # (Auto) 7.06 10^3/uL (1.8-7.7) 03/14/25 03:12 Lymph # (Auto) 2.4 10^3/uL (0.8-4.8) 03/14/25 03:12 [place] # (Auto) 0.9 10^3/uL (0.2-0.9) 03/14/25 03:12 Eos # (Auto) 0.9 10^3/uL (0.0-0.8) H 03/14/25 03:12 Baso # (Auto) 0.1 10^3/uL (0.0-0.1) 03/14/25 03:12 Nucleated RBC % (auto) 0 % 03/14/25 03:12 Nucleated RBCs # 0.0 /100WBC 03/14/25 03:12 PT 19.10 SECONDS (12.1-14.9) H 03/12/25 17:02 INR 1.50 (0.8-1.2) H 03/12/25 17:02 APTT 36.4 SECONDS (23.9-36.7) 03/12/25 17:02 Sodium 139 mmol/L (136-145) 03/14/25 03:12 Potassium 4.5 mmol/L (3.5-5.1) 03/14/25 03:12 Chloride 108 mmol/L (98-107) H 03/14/25 03:12 Carbon Dioxide 23 mmol/L (22-29) 03/14/25 03:12 Anion Gap 12.5 (5-19) 03/14/25 03:12 BUN 30 mg/dL (8-23) H 03/14/25 03:12 Creatinine 1.2 mg/dL (0.5-0.9) H 03/14/25 03:12 GFR Calculation 45.8 mL/min (90-130) L 03/14/25 03:12 Glucose 166 mg/dL (65-115) H 03/14/25 03:12 POC Glucose 203 mg/dL (70-110) H 03/14/25 12:16 Calculated Osmolality 298 mOsm/kg (285-295) H 03/14/25 03:12 Calcium 7.7 mg/dL (8.5-10.5) L 03/14/25 03:12 Phosphorus 4.4 mg/dL (2.5-4.5) 03/14/25 03:12 Magnesium 2.1 mg/dL (1.7-2.3) 03/14/25 03:12 Total Bilirubin 0.4 mg/dL (0.15-1.2) 03/14/25 03:12 AST 8 U/L (0-32) 03/14/25 03:12 ALT 6 U/L (0-33) 03/14/25 03:12 Alkaline Phosphatase 94 U/L (35-105) 03/14/25 03:12 Troponin T Baseline 59 ng/L (0-10) H 03/12/25 17:02 Troponin T 60 Minute 62.84 ng/L (0-10) H 03/12/25 18:15 Delta Troponin T 3.84 ABS# (0-10) 03/12/25 18:15 Troponin T Hi Sens 6Hr 53.43 ng/L (0-10) H 03/12/25 22:53 Troponin T Hi Sens 6Hr Delta -5.57 ng/L (0-12) L 03/12/25 22:53 NT-Pro-B Natriuret Pep 5585 pg/mL (0-125) H 03/12/25 17:02 Total Protein 4.5 g/dL (6.6-8.7) L 03/14/25 03:12 Albumin 2.3 g/dL (3.5-5.2) L 03/14/25 03:12 Globulin 2.2 g/dL (1.3-4.6) 03/14/25 03:12 Lipase 41 U/L (13-60) 03/12/25 17:02 TSH 6.77 uIU/mL (0.27-4.20) H 03/12/25 17:02 Urine Color Red (Yellow) A 03/13/25 19: Urine Appearance Turbid (CLEAR) A 03/13/25 19:05 Urine pH 5.5 (5-7) 03/13/25 19:05 Ur Specific [place] 1.017 (1.005-1.030) 03/13/25 19:05 Urine Protein 4+ (Negative) A 03/13/25 19: Urine Glucose (UA) 1+ (Normal) H 03/13/25 19:05 Urine Ketones Negative (Negative) 03/13/25 19:05 Urine Blood 3+ (Negative) A 03/13/25 19:05 Urine Nitrate Negative (Negative) 03/13/25 19: Urine Bilirubin Negative (Negative) 03/13/25 19:05 Urine Urobilinogen 0.2 mg/dL (Negative) 03/13/25 19:05 Ur Leukocyte Esterase 2+ (Negative) A 03/13/25 19:05 Urine RBC >100 /hpf (0-2) H 03/13/25 19:05 Urine WBC >100 /hpf (0-5) H 03/13/25 19:05 Ur Squamous Epith Cells 0-5 /hpf (0-5) 03/13/25 19:05 Amorphous Sediment Not Reportable 03/13/25 19:05 Urine Bacteria 4+ /hpf (NONE) H 03/13/25 19:05 Hyaline Casts 5.94 /lpf 03/13/25 19:05 Vitals Last Vital Signs Temp 99.0 F 03/14/25 06:03 Pulse 76 03/14/25 08:30 Resp 18 03/14/25 08:30 BP 152/62 03/14/25 08:30 Pulse Ox 95 03/14/25 08:30 O2 Del Method Nasal Cannula 03/13/25 08:50 O2 Flow Rate 3 03/13/25 08:50 Discharge Plan Discharge Patient Disposition: Home Condition: Stable Prescriptions: [place] Blood Pressure Cuff Misc See Rx Instructions .Route Qty: 1 0RF Rx Instructions: As directed amlodipine 5 mg Tablet 5 mg PO DAILY Qty: 90 0RF aspirin 81 mg Tablet,Delayed Release (Dr/Ec) 81 mg PO DAILY Qty: 90 0RF sulfamethoxazole-trimethoprim [Bactrim DS] 800-160 mg tablet 1 tab PO Q12H 3 Days Qty: 6 0RF Continued ([facility] [place]) Diabetic Shoes with 3 Pairs of Inserts See Rx Instructions .Route .MEDSUPPLY Qty: 1 0RF Rx Instructions: As directed by HOME ([facility] [place]) Diabetic shoes with 3 sets of inserts See Rx Instructions .Route .MEDSUPPLY Qty: 1 0RF Rx Instructions: As directed by [facility] ([facility] [place]) Dexcom G7 Applications Engineer Misc See Rx Instructions .Route Qty: 1 0RF Rx Instructions: As directed ([facility] [place]) Dexcom G7 Sensor Device See Rx Instructions .Route Qty: 9 1RF Rx Instructions: As directed albuterol sulfate 2.5 mg /3 mL (0.083 %) solution for nebulization 2.5 mg inhalation Q4H PRN (Reason: shortness of breath or wheezing) Qty: 90 0RF (DME) lancets [facility] See Rx Instructions .Route Qty: 100 3RF Rx Instructions: once daily acetaminophen [Acetaminophen Extra Strength] 500 mg tablet 1,000 mg PO Q6H PRN (Reason: Pain) Xarelto 20 mg tablet 20 mg PO BEDTIME@22 Qty: 30 2RF (DME) pen needle, diabetic [Comfort EZ Pen Karthaus] 31 gauge x 5/16 needle See Rx Instructions .Route Qty: 1200 2RF Rx Instructions: As directed levocetirizine 5 mg tablet 5 mg PO BID Qty: 60 5RF gabapentin 300 mg capsule 300 mg PO BID@10,22 Qty: 60 2RF duloxetine 60 mg capsule,delayed release(DR/EC) 60 mg PO BID@10,22 Qty: 60 2RF doxepin 25 mg capsule 25 mg PO BEDTIME@22 Qty: 30 2RF (DME) Blood Glucose Test Strip See Rx Instructions .Route Qty: 100 3RF Rx Instructions: once daily atorvastatin 40 mg tablet 40 mg PO BEDTIME@22 Qty: 30 5RF albuterol sulfate [Ventolin HFA] 90 mcg/actuation HFA aerosol inhaler 2 puff inhalation Q6H PRN (Reason: shortness of breath or wheezing) Qty: 6.7 2RF (DME) 12 pairs of diabetic socks See Rx Instructions .Route .MEDSUPPLY Qty: 1 0RF Rx Instructions: As directed by [employer]Mariaelena (ANNIKA) Diabetic Shoes with 3 pairs of inserts- build up to the right See Rx Instructions .Route .MEDSUPPLY Qty: 1 0RF Rx Instructions: As directed by [facility] (ANNIKA) blood-glucose meter [True Metrix Glucose Meter] [facility] See Rx Instructions .Route Qty: 1 0RF Rx Instructions: As directed ([facility] [place]) True Metrix Glucose Test Strip Strip See Rx Instructions .Route Qty: 300 3RF Rx Instructions: TID (DME) lancets 31 gauge [facility] See Rx Instructions .Route Qty: 300 3RF Rx Instructions: As directed insulin glargine [Lantus Solostar U-100 Insulin] 100 unit/mL (3 mL) insulin pen 30 unit SUBCUT BEDTIME furosemide [Lasix] 20 mg tablet 20 mg PO BID 30 Days Qty: 60 1RF famotidine 20 mg tablet 20 mg PO BEDTIME Immune Essentials Daily 750 mcg-150 mg- 31.25 mcg Capsule 1 cap PO BEDTIME tizanidine 4 mg capsule 2 mg PO BID PRN (Reason: muscle spasticity) Trulicity 4.5 mg/0.5 mL pen injector 4.5 mg SUBCUT .weekly Rx Instructions: Friday's Discontinued metoprolol tartrate 25 mg tablet 25 mg PO Q12H Qty: 60 2RF amiodarone 200 mg tablet 200 mg PO DAILY Clay Worker OK for DC: Cardiology Other Ambulatory Orders: MCT/Event Monitor 30 Days (Routine) Timeframe: 1 Week Facility: [facility] - Location: Radiology Ordered By: Ramandeep Barrientos Referrals: Ramandeep Barrientos NP [Nurse Practitioner, Cardiology] - 2 weeks Santo Hinojosa M.D [Physician, Cardiology] - 2 weeks Cristina Canela FNP-C [Primary Care Provider, Family Practice] Discharge Diet: Low Salt Discharge Activity: Resume usual activity Patient Instructions: Bradycardia (DC), Patient Portal & Jose Instructions Activity Restrictions/Additional Instructions: I discussed your case with the gem setter. For now, until he can follow-up outpatient we think it is best for you to discontinuing your heart rate medications, including the amiodarone. It is possible that your heart rate might increase, but it will not be going to slow. For safety and diagnosis purposes, you will be fitted with a heart rate monitor when you leave the hospital today. Then your gem setter can follow-up and see how to best manage your medications. I can also put in a referral for you to see Dr. Puentes, who saw you in the hospital this visit if you so choose. Thank you for being such a good patient and I am glad you are doing well. Also appears that you have a recurrent urinary tract infection, that persistently grows a bacteria called Klebsiella pneumonia that is resistant to certain other antibiotics. It is very sensitive to Bactrim, and I understand t hat you have some history of GI upset due to it, but no serious allergies. I ordered you a 3-day course of Bactrim to clear the urinary tract infection which may have contributed to you being in the hospital. Discharge Attestations Time Spent in Discharge Care*: greater than 30 min Quality Metrics Clinical Quality Measures [ No reported AMI, CVA or VTE this stay] Coding Level of Care Code 61521 Diagnoses Atrial fibrillation with slow ventricular response I48.91 Bilateral leg edema R60.0 Elevated troponin R79.89 Acute on chronic diastolic heart failure I50.33 High serum thyroid stimulating hormone (TSH) R79.89 Sleep apnea-like behavior G47.39 Diabetes E11.9 Morbid obesity with BMI of 45.0-49.9, adult E66.01; Z68.42 Tobacco abuse Z72.0 Hematuria R31.9
--- NOTE | 2025-03-14 15:13 | P.PN_ITS ---
<Statement entered by Santo Hinojosa M.D - 03/20/25 11:03> Patient was cared for in conjunction with an advanced practice practitioner.? I reviewed the chart and all pertinent data including imaging, telemetry, and laboratory results.? I discussed the patient in detail with the advanced practice practitioner.? Please see? their documentation for progress note, testing results and agreed upon plan of care for the patient. Subjective 2 Subjective: Patient doing well today. Heart rate has been well-controlled without any bradycardia. She did receive metoprolol yesterday evening. BP is elevated. Vitals/I&O/Wt Last Vital Signs Temp 99.0 F 03/14/25 06:03 Pulse 64 03/14/25 13:00 Resp 14 03/14/25 13:00 BP 163/81 03/14/25 13:00 Pulse Ox 94 03/14/25 13:30 O2 Del Method Nasal Cannula 03/13/25 08:50 O2 Flow Rate 3 03/13/25 08:50 03/14/25 03/14/25 03/14/25 06:59 14:59 22:59 Intake Total 500 / 500 Balance 500 / 500 Weight last 48 hrs Weight 305 lb 5.443 oz Weight 300 lb 14.896 oz Weight 300 lb 14.896 oz Weight 299 lb Physical Exam 2 Narrative: General: No apparent distress, healthy appearing, well nourished HENMT: normoceophalic Respiratory: Normal respiratory effort, clear to auscultation bilaterally throughout all lung gipson, no use of accessory muscles Cardio: No JVD, regular rate, regular rhythm, S1 S2 normal, no murmurs, peripheral pulses 2+ radial palpated bilaterally GI: Normal to inspection, nondistended Extremities: Full ROM, normal, normal capillary refill, no cyanosis or edema Neuro: Alert and oriented x4 Psych: Affect normal Skin: No rashes or lesions noted, no wounds Data 03/14/25 03:12 03/14/25 03:12 A&P Assessment and plan 1. Atrial fibrillation: 2. Bradycardia: Plan: At this time, patient is planning on being discharged today. Spoke to Dr. Fraser, recommended home with an event monitor, hold all rate controlling medications, f/u in our clinic in a week for further eval and treatment. Will start patient on amlodipine 5 mg BID, as Metoprolol is being d/c. Patient was asked to bring in a blood pressure log to the clinic morning and evening for further review. Script for BP monitor has been given. PDMP PDMP Reviewed: Not Reviewed Attestations 2 Medical Necessity Statement*: Deferred to primary Coding Level of Care Code Acute Code for g Fwd Diagnoses Atrial fibrillation I48.91 Bradycardia R00.1
--- NOTE | 2025-03-14 16:21 | PC.NURSE ---
All D/C instruction educated to patient, Heart monitor placed, iv removed, no concerns expressed by patient, transported home by sister
== END 2025-03-14 16:00 | disposition home or self-care (01) | DRG 201 ==
LOC: ER 19:22 → ICU 22:33
PROVIDERS: Admitting Provider Internal Medicine; Emergency Provider Emergency Medicine; PCP Nurse Practitioner Family; Visit Provider Internal Medicine
DX: I48.0 Paroxysmal atrial fibrillation (principal); Z79.01 Long term (current) use of anticoagulants; R00.1 Bradycardia, unspecified; I25.9 Chronic ischemic heart disease, unspecified; I11.0 Hypertensive heart disease with heart failure; I50.33 Acute on chronic diastolic (congestive) heart failure; R94.6 Abnormal results of thyroid function studies; E11.9 Type 2 diabetes mellitus without complications; E66.01 Morbid (severe) obesity due to excess calories; Z68.42 Body mass index [BMI] 45.0-49.9, adult; N39.0 Urinary tract infection, site not specified; F17.210 Nicotine dependence, cigarettes, uncomplicated; J44.9 Chronic obstructive pulmonary disease, unspecified; E78.5 Hyperlipidemia, unspecified; M47.9 Spondylosis, unspecified; Z90.13 Acquired absence of bilateral breasts and nipples; Z90.710 Acquired absence of both cervix and uterus; Z90.722 Acquired absence of ovaries, bilateral; Z89.421 Acquired absence of other right toe(s); Z90.49 Acquired absence of other specified parts of digestive tract; Z79.84 Long term (current) use of oral hypoglycemic drugs; Z79.4 Long term (current) use of insulin; Z88.2 Allergy status to sulfonamides; Z88.1 Allergy status to other antibiotic agents; Z82.49 Family history of ischemic heart disease and other diseases of the circulatory system
CPT/HCPCS: 36415; 36416; 71045; 80048; 80053; 81003; 82962; 83690; 83735; 83880; 84100; 84443; 84484; 85025; 85610; 85730; 87077; 87086; 87186; 93005; 94664; 96365; 96366; 96372; 96375; 99291; J0461; J1265; J1815; J2405; J9999

== ENCOUNTER → 2025-03-23 15:52 | Outpatient (BNVA) | payer MEDICAID, SELFPAY | PROVIDERS: PCP Nurse Practitioner Family; Visit Provider Nurse Practitioner Family | DX: N39.0 Urinary tract infection, site not specified (principal); R39.9 Unspecified symptoms and signs involving the genitourinary system | CPT/HCPCS: 81000 ==